=== PATIENT | male | born 1955 | race Hispanic/Latino ===

== ENCOUNTER 2020-10-08 00:50 | Emergency (ER) | payer OTHER ==
[2020-10-08] MEDS ORDERED: HYDROCODONE/APAP 10/325 TAB ONE (02:28)
[2020-10-08] MEDS ORDERED: methocarbamoL 500 MG TAB ONE (02:28)
[2020-10-08] MEDS ORDERED: KETOROLAC 30 MG/ML INJ ONE (02:29)
--- NOTE | 2020-10-08 03:51 | ER ---
Nurse's Notes [facility] Name: Refugio Sylvester Age: 65 yrs Sex: Male : 1955 Arrival Date: 10/08/2020 Time: 00:54 Bed 12 Private MD: Diagnosis: Multiple fractures of ribs, left side-New and old Presentation: 10/08 02:02 Acuity: JOSH 4 sg 02:02 Chief complaint: Patient states: Earlier this evening, I was walking and slipped on the sg ice, falling onto my left side. Im having pain in my left ribs only at this time. pt ambulatory for triage to exam room 12. Coronavirus screen: Client denies travel out of the [place] in the last 14 days. Ebola Screen: Patient negative for fever greater than or equal to 101.5 degrees Fahrenheit, and additional compatible Ebola Virus Disease symptoms Patient denies exposure to infectious person. Patient denies travel to an Ebola-affected area in the 21 days before illness onset. No symptoms or risks identified at this time. Initial Sepsis Screen: Does the patient meet any 2 criteria? No. Patient's initial sepsis screen is negative. Does the patient have a suspected source of infection? No. Patient's initial sepsis screen is negative. Risk Assessment: Do you want to hurt yourself or someone else? Patient reports no desire to harm self or others. Onset of symptoms was October 07, 2020. Care prior to arrival: None. Mechanism of Injury: Fall from standing position. Transition of care: patient was not received from another setting of care. 02:02 Method Of Arrival: Ambulatory sg Historical: - Allergies: 02:04 No Known Allergies; sg - PMHx: 02:04 Broken Ribs; sg - Immunization history:: Adult Immunizations up to date. - Social history:: Smoking status: Patient denies any tobacco usage or history of. Screenin:50 Abuse screen: Denies threats or abuse. Denies injuries from another. Nutritional sg screening: No deficits noted. Tuberculosis screening: No symptoms or risk factors identified. Never had TB. Fall Risk None identified. Assessment: 02:38 Reassessment: pt remains in xray at this time. sg 03:20 Reassessment: Patient appears in no apparent distress at this time. Patient and/or sg family updated on plan of care and expected duration. Pain level reassessed. Patient is alert, oriented x 3, equal unlabored respirations, skin warm/dry/pink. Vital Signs: 02:38 BP 142 / 76; Pulse 80; Resp 16; Temp 97.7; Pulse Ox 95% on R/A; sg ED Course: 00:54 Patient arrived in ED. ag3 01:17 Raman Gonzalez MD is Attending Physician. kdr 02:02 Joni Langley RN is Primary Nurse. sg 02:02 Triage completed. sg 02:04 Arm band placed on. sg 02:16 Patient moved to radiology. sg 03:34 CXR XRAY In Process Unspecified. EDMS 03:34 Ribs Left XRAY In Process Unspecified. EDMS 04:04 No provider procedures requiring assistance completed. Patient did not have IV access sg during this emergency room visit. Administered Medications: 02:10 Drug: [place] 10 mg-325 mg 1 tabs Route: PO; sg 03:30 Follow up: Response: No adverse reaction; Pain is decreased sg 02:10 Drug: Robaxin 750 mg Route: PO; sg 03:30 Follow up: Response: No adverse reaction; Pain is decreased sg 03:08 Drug: TORadol - Ketorolac 15 mg Route: IM; Site: left deltoid; sg 03:30 Follow up: Response: No adverse reaction sg Outcome: 03:50 Discharge ordered by . kdr 04:04 Patient left the ED. sg 04:04 Discharged to home ambulatory. sg 04:04 Condition: good 04:04 Discharge instructions given to patient, Instructed on discharge instructions, follow up and referral plans. safety practices, Demonstrated understanding of instructions, follow-up care, Prescriptions given X 3. Signatures: Dispatcher [employer] EDMS Joni Langley, KANA RN Raman Gonzalez MD MD [facility] Peyton Wise ag3
--- NOTE | 2020-10-08 03:51 | EDPHYS ---
Physician Documentation [facility] Name: Refugio Sylvester Age: 65 yrs Sex: Male : 1955 Arrival Date: 10/08/2020 Time: 00:54 Bed 12 Private MD: ED Physician Raman Gonzalez HPI: 10/08 02:08 This 65 yrs old Male presents to ER via Ambulatory with complaints of Fall kdr Injury, RIB PAIN. 02:08 Details of fall: The patient fell from an upright position, while walking. Onset: The kdr symptoms/episode began/occurred suddenly, this morning, today. Associated injuries: The patient sustained injury to the chest, specifically the left lateral anterior chest, contusion, pain with breathing, pain with movement, tenderness. Severity of symptoms: At their worst the symptoms were moderate, in the emergency department the symptoms are unchanged. The patient has experienced a previous episode, many years ago. The patient has not recently seen a physician. Historical: - Allergies: 02:04 No Known Allergies; sg - PMHx: 02:04 Broken Ribs; sg - Immunization history:: Adult Immunizations up to date. - Social history:: Smoking status: Patient denies any tobacco usage or history of. ROS: 02:08 Constitutional: Negative for fever, chills, and weight loss, Eyes: Negative for injury, kdr pain, redness, and discharge, Neck: Negative for injury, pain, and swelling, Respiratory: Negative for shortness of breath, cough, wheezing, and pleuritic chest pain, Abdomen/GI: Negative for abdominal pain, nausea, vomiting, diarrhea, and constipation, Back: Negative for injury and pain, : Negative for injury, bleeding, discharge, and swelling, MS/Extremity: Negative for injury and deformity, Skin: Negative for injury, rash, and discoloration, Neuro: Negative for headache, weakness, numbness, tingling, and seizure activity. Psych: Negative for depression, anxiety, suicide ideation, homicidal ideation, and hallucinations, Allergy/Immunology: Negative for hives, rash, and allergies, Endocrine: Negative for neck swelling, polydipsia, polyuria, polyphagia, and marked weight changes, Hematologic/Lymphatic: Negative for swollen nodes, abnormal bleeding, and unusual bruising. 02:08 Cardiovascular: Positive for chest pain, with cough, with movement, of the left lateral anterior chest. Exam: 02:08 Constitutional: This is a well developed, well nourished patient who is awake, alert, kdr and in no acute distress. Head/Face: Normocephalic, atraumatic. Eyes: Pupils equal round and reactive to light, extra-ocular motions intact. Lids and lashes normal. Conjunctiva and sclera are non-icteric and not injected. Cornea within normal limits. Periorbital areas with no swelling, redness, or edema. Neck: Trachea midline, no thyromegaly or masses palpated, and no cervical lymphadenopathy. Supple, full range of motion without nuchal rigidity, or vertebral point tenderness. No Meningismus. Cardiovascular: Regular rate and rhythm with a normal S1 and S2. No gallops, murmurs, or rubs. Normal PMI, no JVD. No pulse deficits. Respiratory: Lungs have equal breath sounds bilaterally, clear to auscultation and percussion. No rales, rhonchi or wheezes noted. No increased work of breathing, no retractions or nasal flaring. Abdomen/GI: Soft, non-tender, with normal bowel sounds. No distension or tympany. No guarding or rebound. No evidence of tenderness throughout. Back: No spinal tenderness. No costovertebral tenderness. Full range of motion. Skin: Warm, dry with normal turgor. Normal color with no rashes, no lesions, and no evidence of cellulitis. MS/ Extremity: Pulses equal, no cyanosis. Neurovascular intact. Full, normal range of motion. Neuro: Awake and alert, GCS 15, oriented to person, place, time, and situation. Cranial nerves II-XII grossly intact. Motor strength 5/5 in all extremities. Sensory grossly intact. Cerebellar exam normal. Normal gait. Psych: Awake, alert, with orientation to person, place and time. Behavior, mood, and affect are within normal limits. 02:08 Chest/axilla: Inspection: abrasion, that is mild, of the left lateral anterior chest Palpation: crepitus, is not appreciated, tenderness, that is moderate, of the left lateral anterior chest, that totally reproduces the patient's complaints. Vital Signs: 02:38 BP 142 / 76; Pulse 80; Resp 16; Temp 97.7; Pulse Ox 95% on R/A; sg MDM: 02:08 Data reviewed: vital signs, nurses notes, radiologic studies. Counseling: I had a kdr detailed discussion with the patient and/or guardian regarding: the historical points, exam findings, and any diagnostic results supporting the discharge/admit diagnosis, radiology results, the need for outpatient follow up. 03:50 Patient medically screened. kdr 10/08 01:17 Order name: CXR XRAY kdr 10/08 02:16 Order name: Ribs Left XRAY sg 10/08 03:53 Order name: INCENTIVE SPIROMETRY sg Administered Medications: 02:10 Drug: [place] 10 mg-325 mg 1 tabs Route: PO; sg 03:30 Follow up: Response: No adverse reaction; Pain is decreased sg 02:10 Drug: Robaxin 750 mg Route: PO; sg 03:30 Follow up: Response: No adverse reaction; Pain is decreased sg 03:08 Drug: TORadol - Ketorolac 15 mg Route: IM; Site: left deltoid; sg 03:30 Follow up: Response: No adverse reaction sg Disposition: 10/08/20 03:50 Discharged to Home. Impression: Multiple fractures of ribs, left side - New and old. - Condition is Stable. - Discharge Instructions: Incentive Spirometer, Rib Fracture, [id number]. - Prescriptions for Ibuprofen 600 mg Oral Tablet - take 1 tablet by ORAL route every 6 hours As needed take with food; 30 tablet. Robaxin 500 mg Oral Tablet - take 2 tablet by ORAL route every 6 hours As needed; 40 tablet. Tylenol- Codeine #3 300-30 mg Oral Tablet - take 2 tablets by ORAL route every 6 hours As needed; 18 tablet. - Medication Reconciliation Form, Thank You Letter, Prescription Opioid Use form. - Follow up: Private Physician; When: 2 - 3 days; Reason: If symptoms return, Further diagnostic work-up, Recheck today's complaints, Continuance of care, Re-evaluation by your physician. - Problem is new. - Symptoms have improved. Signatures: Dispatcher [employer] EDJoni Shearer RN RN Raman Lino MD MD kdr Corrections: (The following items were deleted from the chart) 03:14 01:18 Ribs Right+RAD.RAD.BRZ ordered. [facility] EDMS 04:04 03:50 10/08/2020 03:50 Discharged to Home. Impression: Multiple fractures of ribs, left sg side - New and old. Condition is Stable. Forms are Medication Reconciliation Form, Thank You Letter, Antibiotic Education, Prescription Opioid Use. Follow up: Private Physician; When: 2 - 3 days; Reason: If symptoms return, Further diagnostic work-up, Recheck today's complaints, Continuance of care, Re-evaluation by your physician. Problem is new. Symptoms have improved. kdr
[2020-10-08 04:09] VITALS: BP 142/76; TEMP 97.7; O2SAT 95
--- NOTE | 2020-10-08 08:28 | RAD REPORT ---
EXAM DESCRIPTION: RAD - Chest Single View - 10/08/2020 3:34 am CLINICAL HISTORY: CHEST PAIN, fall with left-sided chest and rib pain COMPARISON: No remote imaging TECHNIQUE: AP portable chest image was obtained 10/08/2020 3:34 am . FINDINGS: No pneumothorax or pulmonary contusion identifiable. Heart and vasculature are normal. No pleural fluid collections seen. Sternotomy wires are in place. No acute aortic finding. Multiple old left-sided rib fractures are present. Ribs are further detailed on separate report. IMPRESSION: No acute cardiopulmonary process. Left-sided rib findings are detailed on separate report.
--- NOTE | 2020-10-08 08:33 | RAD REPORT ---
EXAM DESCRIPTION: RAD - Ribs Left - 10/08/2020 3:35 am CLINICAL HISTORY: Fall, left-sided chest pain, left-sided rib pain COMPARISON: No remote imaging FINDINGS: Posterior 5-8th rib fractures appear to be old. The 9th and 10th ribs show questionable no ndisplaced rib fractures lateral to anterolateral in location. Film detail is somewhat limited. There are no findings of a pathologic bone process. Costochondral calcifications are present. No pneumothorax or hemothorax findings. No pulmonary contusion. IMPRESSION: Questionable nondisplaced lateral ninth and tenth rib fractures. Old posterior 5ht-8th left-sided rib fractures.
== END 2020-10-08 04:04 | disposition home or self-care (01) ==
LOC: ER 00:50
DX: S22.42XA Multiple fractures of ribs, left side, initial encounter for closed fracture (principal); W19.XXXA Unspecified fall, initial encounter
CPT/HCPCS: 71045; 96372; 99283

== ENCOUNTER 2021-07-16 19:15 | Inpatient (IN) | payer OTHER ==
--- OUTSIDE RECORDS SUMMARY | 2021-07-16 19:52 | XMS REPORT | Continuity of Care Document ---
:1955 Author Organization [facility] t Address [address] [place] [place] [address] Care Team Providers Name Role Phone Pcp, Does Not Have A Primary Care Physician Wendy Attending Clinician Unavailable Hiro FARLEY, Kulwant Attending Clinician Maico FARLEY, K.H. Attending Clinician Doctor Unassigned, Name Attending Clinician Unavailable Matt FARLEY Attending Clinician Transplant Attending Clinician Unavailable ALF Attending Clinician Unavailable VASCULAR Attending Clinician Unavailable ANDERSON Attending Clinician Unavailable ANDERSON Admitting Clinician Unavailable Payers Payer Name Policy Type Policy Number Effective Date Expiration Date S ource Problems Condition Condition Condition Status Onset Resolution Last Treating Co mments Source Name Details Category Date Date Treatment Clinician Date SOB Diagnosis Active 2020-12-10 Mem oria 12-10 10:37:00 l SOB 04:00: Mcfarlan 00 Active 12/10/2020 [facility] CHEST Diagnosis Active 2020-12-12 Mem oria PAIN, 12-10 12:48:00 l SHORTNESS CHEST 04:00: Bob n OF BREATH PAIN, 00 SHORTNESS OF BREATH [facility] Ob[facility] Obesity Disease Active Univers (BMI (BMI 2-12 ity of 30-39.9) 30-39.9) 00:00: [place] 00 Medical Branch Screening Screening Disease Active Overview: Univers for colon for colon 08-31 Formattin i ty of cancer cancer 00:00: g of this [place] 00 note Medical might be Branch different from the original. Added automatic ally from request for surgery [id number] Caries Caries Disease Active 2017-08 Overview: Univer s 10-19 Formattin ity of 00:00: g of this [place] 00 note Medical might be Branch different from the original. Added automatic ally from request for surgery [id number] ESRD (end ESRD (end Disease Active 2017-08 Uni vers stage stage 10-19 ity of renal renal 00:00: [place] disease) disease) 00 Medica l Branch PERIPHERAL Diagnosis Active 2018-01-10 Memoria STENT 12-16 06:46:00 l 00:00: David PERIPHERAL 00 STENT Active 12/16/2017 [facility] David UNK Diagnosis Active 2017-12-18 Mem oria 3 15:48:00 l UNK 00:00: David 00 Active 11/05/2017 Sahil Hernandez Jayde FARLEY Diagnosis Active 2017-10-19 Mem oria REFERRAL 10-19 21:09:00 l 00:00: David REFERRAL 00 Active 10/19/2017 [facility] DIALYSIS Diagnosis Active 2017-10-20 M emoria AV FISTULA 10-19 14:44:00 l MALFUNCTIO DIALYSIS 00:00: He rmann N AV FISTULA 00 MALFUNCTIO N Active 10/19/2017 [facility] STOMACHE Diagnosis Active 2016-082017-08-11 M emoria ACHE 10-11 01:02:00 l STOMACHE 00:00: Bob n ACHE 00 Active 08/10/2017 [facility] ACUTE CHF Diagnosis Active 2016-082017-06-25 Memoria 08-24 15:19:00 l ACUTE 00:00: Mcfarlan CHF 00 Active 06/24/2017 [facility] David CHRONIC Diagnosis Active 2016-082017-06-10 Me moria KIDNEY 0-16 10:11:00 l DISEASE CHRONIC 00:00: Bob n STAGE V KIDNEY 00 DISEASE STAGE V Active 06/07/2017 [facility] COUGH, EYE Diagnosis Active 2016-12-06 Memoria PAIN 4-16 22:18:00 l COUGH, 00:00: Mcfarlan EYE PAIN 00 Active 12/06/2016 [facility] TROUBLE Diagnosis Active 2016-11-10 Me moria BREATHING 3-20 00:49:00 l TROUBLE 00:00: David BREATHING 00 Active 11/09/2016 [facility] Congestive Congestive Disease Active 2014-08 U nivers heart heart 0-02 ity of failure failure 00:00: [place] (CHF) (CHF) 00 Medical Branch CHF CHF Disease Active 2014-08 Univers (congestiv (congestiv 0-01 it y of e heart e heart 00:00: [place] failure) failure) 00 Medica l Branch DM w/o DM w/o Disease Active Univers complicati complicati it y of on type II on type II [place] [facility] HTN HTN Disease Active Univers (hypertens (hypertens it y of ion) ion) [facility] Dyslipidem Dyslipidem Disease Active U mati ia ia ity of [facility] Retinopath Retinopath Disease Active Overview : Univers y y Formattin ity of g of this [place] note Medical might be Branch different from the original. 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:36:33 l occlusion Chronic Herm shelbie of artery total of the occlusion extremitie of artery s of the extremitie s 02/23/2018 [facility] Atheroscle Problem 2018-02-23 M emoria rosis of 14:36:33 l aorta David Atheroscle rosis of aorta 02/23/2018 [facility] Other Problem 2018-02-23 Memor ia specified 14:36:33 l diabetes Other David mellitus specified with diabetes diabetic mellitus chronic with kidney diabetic disease chronic kidney disease 02/23/2018 [facility] Hypertensi Problem 2018-02-23 M emoria ve heart 14:36:33 l and Mcfarlan chronic Hypertensi kidney ve heart disease and with heart chronic failure kidney and with disease stage 5 with heart chronic failure kidney and with disease, stage 5 or end chronic stage kidney renal disease, disease or end stage renal disease 02/23/2018 [facility] Chronic Problem 2018-02-23 Connor beto diastolic 14:36:33 l (congestiv Chronic Her [place] e) heart diastolic failure (congestiv e) heart failure 02/23/2018 [facility] End stage Problem 2018-02-23 Me moria renal 14:36:33 l disease End Mcfarlan stage renal disease 02/23/2018 [facility] Dependence Problem 2018-02-23 M emoria on renal 14:36:33 l dialysis David Dependence on renal dialysis 02/23/2018 [facility] Mixed Problem 2018-02-23 Memor ia hyperlipid 14:36:33 l emia Mixed Mcfarlan hyperlipid emia 8 [facility] Atheroscle Problem 2018-02-23 M emoria rotic 14:36:33 l heart Mcfarlan disease of Atheroscle [place] rotic coronary heart artery disease of without [place] angina coronary pectoris artery without angina pectoris 02/23/2018 [facility] Presence Problem 2018-02-23 Mem oria of 14:36:33 l aortocoron Presence He rmann liliam bypass of graft aortocoron liliam bypass graft 02/23/2018 [facility] assisted Problem 2018-02-23 Me moria (current) 14:36:33 l use of Long David oral term hypoglycem (current) ic drugs use of oral hypoglycem ic drugs 02/23/2018 [facility] oysterman Problem 2018-02-23 Me moria (current) 14:36:33 l use of Long Mcfarlan aspirin term (current) use of aspirin 02/23/2018 [facility] assisted Problem 2018-02-23 Me moria (current) 14:36:33 l use of Long David antithromb term otics/anti (current) platelets use of antithromb otics/anti platelets 02/23/2018 [facility] Other long Problem 2018-02-23 M emoria term 14:36:33 l (current) Other Bob n drug termite treater helper therapy (current) drug therapy 02/23/2018 [facility] Unspecifie Problem 2018 M emoria d 15:05:35 l diastolic David (congestiv Unspecifie e) heart d failure diastolic (congestiv e) heart failure 2018 [facility] Type 2 Problem 2018 Memor ia diabetes 15:05:35 l mellitus Type 2 Bob n with diabetes diabetic mellitus chronic with kidney diabetic disease chronic kidney disease 2018 [facility] oysterman Problem 2018 Me moria (current) 15:05:35 l use of Long David insulin term (current) use of insulin 2018 [facility] Type 2 Problem 2018 Memor ia diabetes 15:05:35 l mellitus Type 2 Bob n with diabetes diabetic mellitus peripheral with angiopathy diabetic without peripheral gangrene angiopathy without gangrene 2018 [facility] Hyperlipid Problem 2018 M emoria emia, 15:05:35 l unspecifie Bob n d Hyperlipid emia, unspecifie d 2018 [facility] Obesity, Problem 2018 Mem oria unspecifie 15:05:35 l d Obesity, Bob n unspecifie d 2018 [facility] Body mass Problem 2018 Me moria index 15:05:35 l (BMI) Body David 32.0-32.9, mass index adult (BMI) 32.0-32.9, adult 2018 [facility] Chronic Problem Active 2020-12-16 Connor beto kidney 07:38:26 l disease Chronic Bob n (disorder) kidney disease (disorder) Active Problem 12/16/2020 [facility], [facility], [facility] Diabetes Problem Active 2020-12-16 Mem oria mellitus 07:38:26 l (disorder) Diabetes He rmann mellitus (disorder) Active Problem 12/16/2020 [facility], [facility], [facility] Atrial Problem Active 2020-12-16 Memor ia fibrillati 07:38:26 l on Atrial David (disorder) fibrillati on (disorder) Active Problem 12/16/2020 [place] End stage Problem Active 2020-12-16 Me moria renal 07:38:26 l failure on End Bob n dialysis stage (disorder) renal failure on dialysis (disorder) Active Problem 12/16/2020 [facility] Diabetes Problem Active 2020-12-16 Mem oria mellitus 07:38:26 l type 2 Diabetes Bob n (disorder) mellitus type 2 (disorder) Active Problem 12/16/2020 [facility] CHEST Diagnosis Active 2020-12-12 Mem oria PAIN, 12:48:00 l UNSPECIFIE CHEST Nay nn D PAIN, UNSPECIFIE D Active [facility] SHORTNESS Diagnosis Active 2020-12-12 Memoria OF BREATH 12:48:00 l David SHORTNESS OF BREATH Active [facility] HEART Diagnosis Active 2017-06-25 Mem oria FAILURE, 15:19:00 l UNSPECIFIE HEART Nay nn D FAILURE, UNSPECIFIE D Active [facility] History of History of Problem Resolve Univers congestive congestive d it y of heart heart [place] failure failure Physici ans History of History of Problem Resolve Univers diabetes diabetes d ity of mellitus mellitus [place] Physici ans History of History of Problem Resolve Univers Hematoma Hematoma d ity of [place] Physici ans History of History of Problem Resolve Univers high [place] ity of cholestero cholestero [place] l Physici ans History of History of Problem Resolve Univers hypertensi hypertensi d it y of on on [place] Physici ans History of History of Problem Resolve Univers myocardial myocardial d it y of infarction infarction [place] [facility] ans History of History of Problem Resolve Univers Stage 5 Stage 5 d ity of chronic chronic [place] kidney kidney Physici disease disease ans not on not on chronic chronic dialysis dialysis History of Problem Resolve 2016-2020-12-16 2020-12-16 Memoria - coronary d 05-08 07:38:26 07:38:26 l artery History 00:00: Mcfarlan bypass of - 00 grafting coronary (context-d artery ependent bypass category) grafting (context-d ependent category) Resolved 05/08/2016 Problem 12/16/2020 [facility], [facility], [facility] History of Past Illness Condition Condition Condition Status Onset Resolution Last Treating Co mments Source Name Details Category Date Date Treatment Clinician Date Atheroscle Problem 2017-2018-02-23 2018-02-23 Memoria rosis of 11-27 14:36:33 14:36:33 l [place] 03:49: Mcfarlan arteries Atheroscle 61 of rosis of extremitie [place] s with arteries intermitte of nt extremitie claudicati s with on, intermitte bilateral nt legs claudicati on, bilateral legs 11/27/2017 02/23/2018 [facility] Breakdown Problem 2018-0 2018 2018 Memoria (mechanica 3-08 15:05:35 15:05:35 l l) of 04:44: Mcfarlan other Breakdown 37 vascular (mechanica grafts, l) of initial other encounter vascular grafts, initial encounter 10/28/2017 2018 [place] Unspecifie Problem 2016-082017-08-14 2017-08-14 Memoria d 10-12 04:28:01 04:28:01 l abdominal 06:00: Mcfarlan pain Unspecifie 00 d abdominal pain 08/11/2017 08/14/2017 [facility] Cough Problem 2016-2016-12-10 2016-12-10 M emoria 4-17 02:36:07 02:36:07 l Cough 05:00: David 00 12/07/2016 12/10/2016 [facility] Acute Problem 2016-12-10 2016-12-10 M emoria upper 12-07 02:36:07 02:36:07 l respirator Acute 05:00: Nay nn y upper 00 infection, respirator unspecifie y d infection, unspecifie d 12/07/2016 12/10/2016 [facility] Shortness Problem 2016-11-13 2016-11-13 Memoria of breath 11-10 02:59:55 02:59:55 l 05:00: Mcfarlan Shortness 00 of breath 11/10/2016 11/13/2016 [facility] Allergies, Adverse Reactions, Alerts Allergy Allergy Status Severity Reaction(s) Onset Inactive Treating Comm ents Source Name Type Date Date Clinician No Known DA Active U 2019-08 [facility] [place] [facility] 00:00: d 00 [facility] No Known DA Active U 2019-08 [facility] All[facility]ie 10-20 [place] 00:00: d 00 Medical [place] Social History Social Habit Start Date Stop Date Quantity Comments Source Exposure to Not sure [facility] SARS-CoV-2 [facility] (event) Branch Alcohol intake 2021-06-09 2021-06-09 0 /d University of 00:00:00 00:00:00 [facility] Tobacco use and 2018-07-13 2018-07-13 Never used Universit y of exposure 00:00:00 00:00:00 [facility] Social History 2016-12-07 2016-12-07 [facility] bruna 02:53:03 02:53:03 Tobacco Comment 2015-05-23 2015-05-23 Remote history[facility] ersity of 00:00:00 00:00:00 40 years prior; [facility] [place] ical no more than 2 Branch pk years Sex Ass[birth year] Universit y of 00:00:00 00:00:00 [facility] Smoking Status Start Date Stop Date Source Never smoker [facility] Medications Ordered Filled Start Stop Current Ordering Indication Dosage Frequency Signature Comments Components Source Medication Medication Date Date Medication? Clinician (SIG) Name Name furosemide 2020-08 No 40mg Take 40 mg Univers 40 mg 0-18 10-18 by mouth. ity of tablet 13:57: 00:00 [place] 15 :00 Medical Branch furosemide 2020-08- No 40mg Take 40 mg Univers 40 mg 0-18 10-18 by mouth. ity of tablet 13:57: 00:00 [place] 15 :00 [facility] pravastatin 2020-08 Yes 40mg Take 40 mg Univers 40 mg 0-18 by mouth ity of tablet 13:44: at [place] [address] bedtime. [facility] Branch clopidogreL 2020-08 Yes 75mg Take 75 mg Univers (PLAVIX) 75 0-18 by mouth ity of mg tablet 13:44: daily. [address] pravastatin 2020-08 Yes 40mg Take 40 mg Univers 40 mg 0-18 by mouth ity of tablet 13:44: at [place] [address] bedtime. [facility] Branch clopidogreL 2020-08 Yes 75mg Take 75 mg Univers (PLAVIX) 75 0-18 by mouth ity of mg tablet 13:44: daily. [address] pravastatin 2020-08 Yes 40mg Take 40 mg Univers 40 mg 0-18 by mouth ity of tablet 13:44: at [place] [address] bedtime. [facility] Branch clopidogreL 2020-08 Yes 75mg Take 75 mg Univers (PLAVIX) 75 0-18 by mouth ity of mg tablet 13:44: daily. [address] Branch gabapentin 2020-0 Yes 300mg Take 300 Un sia 300 mg 9-20 mg by ity of capsule 15:57: mouth [address] [place] [address] ([facility]) Medical times Branch daily. glipiZIDE 2021-0 Yes 10mg Take 10 mg Un sia 10 mg 9-20 by mouth ity of tablet 15:57: daily. [address] gabapentin 2020-0 Yes 300mg Take 300 Un sia 300 mg 9-20 mg by ity of capsule 15:57: mouth 3 [place] [address] (three) Medical times Branch daily. glipiZIDE 2020-0 Yes 10mg Take 10 mg Un sia 10 mg 9-20 by mouth ity of tablet 15:57: daily. [address] gabapentin 2020-0 Yes 300mg Take 300 Un sia 300 mg 9-20 mg by ity of capsule 15:57: mouth 3 [place] [address] (three) Medical times [place] daily. glipiZIDE 2021-0 Yes 10mg Take 10 mg Un sia 10 mg 9-20 by mouth ity of tablet 15:57: daily. [address] Branch sevelamer 2020-0 Yes TAKE 3 Univer s 800 mg 7-16 TABLETS BY ity of tablet 00:00: MOUTH [address] Medical TIMES Branch DAILY WITH MEALS sevelamer 2020-0 Yes TAKE 3 Univer s 800 mg 7-16 TABLETS BY ity of tablet 00:00: MOUTH [place] [facility] Medical TIMES Branch DAILY WITH MEALS sevelamer 2020-0 Yes TAKE 3 Univer s 800 mg 7-16 TABLETS BY ity of tablet 00:00: MOUTH [address] Medical TIMES Branch DAILY WITH MEALS ELIQUIS 5 2020-0 Yes 5mg Take 5 mg Uni vers mg tablet 6-01 by mouth ity of 00:00: every 12 [place] [address] (twelve) Medical hours. Branch ELIQUIS 5 2020-0 Yes 5mg Take 5 mg Uni vers mg tablet 6-01 by mouth ity of 00:00: every 12 [place] [address] (twelve) Medical hours. Branch ELIQUIS 5 2020-0 Yes 5mg Take 5 mg Uni vers mg tablet 6-01 by mouth ity of 00:00: every 12 [place] [address] (twelve) Medical hours. Branch apixaban 5 2020-0 Yes 5 mg = 1 Mem oria mg oral 4-21 tab, PO, l tablet 18:03: Q12H, # 60 Nay nn 00 tab, 0 Refill(s), Pharmacy: [facility] #[id number], For Atrial Fibrilatio n, 107.005, kg, 12/10/20 6:02:00 CDT, Weight apixaban 5 1-0 Yes 5 mg = 1 Mem oria mg oral 4-21 tab, PO, l tablet 18:03: Q12H, # 60 Nay nn 00 tab, 0 Refill(s), Pharmacy: [facility] #[id number], For Atrial Fibrilatio n, 107.005, kg, 12/10/20 6:02:00 CDT, Weight apixaban 5 1-0 Yes 5 mg = 1 Mem oria mg oral 4-21 tab, PO, l tablet 18:03: Q12H, # 60 Nay nn 00 tab, 0 Refill(s), Pharmacy: [facility] #[id number], For Atrial Fibrilatio n, 107.005, kg, 12/10/20 6:02:00 CDT, Weight apixaban 5 1-0 Yes 5 mg = 1 Mem oria mg oral 4-21 tab, PO, l tablet 18:03: Q12H, # 60 Nay nn 00 tab, 0 Refill(s), Pharmacy: [facility] #[id number], For Atrial Fibrilatio n, 107.005, kg, 12/10/20 6:02:00 CDT, Weight apixaban 5 1-0 Yes 5 mg = 1 Mem oria mg oral 4-21 tab, PO, l tablet 18:03: Q12H, # 60 Nay nn 00 tab, 0 Refill(s), Pharmacy: [facility] #[id number], For Atrial Fibrilatio n, 107.005, kg, 12/10/20 6:02:00 CDT, Weight apixaban 5 1-0 Yes 5 mg = 1 Mem oria mg oral 4-21 tab, PO, l tablet 18:03: Q12H, # 60 Nay nn 00 tab, 0 Refill(s), Pharmacy: [facility] #[id number], For Atrial Fibrilatio n, 107.005, kg, 12/10/20 6:02:00 CDT, Weight apixaban 5 2020-0 Yes 5 mg = 1 Mem oria mg oral 4-21 tab, PO, l tablet 18:03: Q12H, # 60 Nay nn 00 tab, 0 Refill(s), Pharmacy: [facility] #[id number], For Atrial Fibrilatio n, 107.005, kg, 12/10/20 6:02:00 CDT, Weight apixaban 5 2020-0 Yes 5 mg = 1 Mem oria mg oral 4-21 tab, PO, l tablet 18:03: Q12H, # 60 Nay nn 00 tab, 0 Refill(s), Pharmacy: [facility] #[id number], For Atrial Fibrilatio n, 107.005, kg, 12/10/20 6:02:00 CDT, Weight apixaban 5 2020-0 Yes 5 mg = 1 Mem oria mg oral 4-21 tab, PO, l tablet 18:03: Q12H, # 60 Nay nn 00 tab, 0 Refill(s), Pharmacy: [facility] #[id number], For Atrial Fibrilatio n, 107.005, kg, 12/10/20 6:02:00 CDT, Weight Losartan No Notes: Memoria 4-21 (Same as: l 14:00: Cozaar) Amlodipine No Notes: Memor ia 4-21 (Same as: l 14:00: Norvasc) Losartan No Notes: Memoria 4-21 (Same as: l 14:00: Cozaar) Amlodipine No Notes: Memor ia 4-21 (Same as: l 14:00: Norvasc) Losartan No Notes: Memoria 4-21 (Same as: l 14:00: Cozaar) Amlodipine No Notes: Memor ia 4-21 (Same as: l 14:00: Norvasc) Losartan No Notes: Memoria 4-21 (Same as: l 14:00: Cozaar) Amlodipine No Notes: Memor ia 4-21 (Same as: l 14:00: Norvasc) Losartan No Notes: Memoria 4-21 (Same as: l 14:00: Cozaar) Amlodipine No Notes: Memor ia 4-21 (Same as: l 14:00: Norvasc) Losartan No Notes: Memoria 4-21 (Same as: l 14:00: Cozaar) Amlodipine No Notes: Memor ia 4-21 (Same as: l 14:00: Norvasc) Losartan No Notes: Memoria 4-21 (Same as: l 14:00: Cozaar) Amlodipine No Notes: Memor ia 4-21 (Same as: l 14:00: Norvasc) Losartan No Notes: Memoria 4-21 (Same as: l 14:00: Cozaar) Amlodipine No Notes: Memor ia 4-21 (Same as: l 14:00: Norvasc) Losartan No Notes: Memoria 4-21 (Same as: l 14:00: Cozaar) Amlodipine No Notes: Memor ia 4-21 (Same as: l 14:00: Norvasc) Eliquis No Notes: Memoria 4-21 Same as: l 02:00: Eliquis Pravastatin No Notes: Connor beto 4-21 (Same as: l 02:00: Pravachol) Saline No Notes: Memoria Flush 0.9% 4-21 (Same as: l 02:00: BD Posiflush) Eliquis No Notes: Memoria 4-21 Same as: l 02:00: Eliquis Pravastatin No Notes: Connor beto 4-21 (Same as: l 02:00: Pravachol) Saline No Notes: Memoria Flush 0.9% 4-21 (Same as: l 02:00: BD David 00 Posiflush) Eliquis No Notes: Memoria 4-21 Same as: l 02:00: Eliquis David 00 Pravastatin No Notes: Connor beto 4-21 (Same as: l 02:00: Pravachol) Mcfarlan 00 Saline No Notes: Memoria Flush 0.9% 4-21 (Same as: l 02:00: BD Mcfarlan 00 Posiflush) Eliquis No Notes: Memoria 4-21 Same as: l 02:00: Eliquis Mcfarlan Pravastatin No Notes: Connor beto 4-21 (Same as: l 02:00: Pravachol) David 00 Saline No Notes: Memoria Flush 0.9% 4-21 (Same as: l 02:00: BD Mcfarlan 00 Posiflush) Eliquis No Notes: Memoria 4-21 Same as: l 02:00: Eliquis Mcfarlan Pravastatin No Notes: Connor beto 4-21 (Same as: l 02:00: Pravachol) David 00 Saline No Notes: Memoria Flush 0.9% 4-21 (Same as: l 02:00: BD David 00 Posiflush) Eliquis No Notes: Memoria 4-21 Same as: l 02:00: Eliquis Mcfarlan Pravastatin No Notes: Connor beto 4-21 (Same as: l 02:00: Pravachol) David 00 Saline No Notes: Memoria Flush 0.9% 4-21 (Same as: l 02:00: BD Mcfarlan 00 Posiflush) Eliquis No Notes: Memoria 4-21 Same as: l 02:00: Eliquis Mcfarlan 00 Pravastatin No Notes: Connor beto 4-21 (Same as: l 02:00: Pravachol) David 00 Saline No Notes: Memoria Flush 0.9% 4-21 (Same as: l 02:00: BD David 00 Posiflush) Eliquis No Notes: Memoria 4-21 Same as: l 02:00: Eliquis David 00 Pravastatin No Notes: Connor beto 4-21 (Same as: l 02:00: Pravachol) Mcfarlan 00 Saline No Notes: Memoria Flush 0.9% 4-21 (Same as: l 02:00: BD Mcfarlan 00 Posiflush) Eliquis No Notes: Memoria 4-21 Same as: l 02:00: Eliquis David 00 Pravastatin No Notes: Connor beto 4-21 (Same as: l 02:00: Pravachol) Mcfarlan 00 Saline No Notes: Memoria Flush 0.9% 4-21 (Same as: l 02:00: BD David 00 Posiflush) Sodium No 2,000 mL, Memori a Chloride 4-20 2000 l 0.9% 23:44: ml/hr, David (Bolus) IV 00 Infuse Over: 1 hr, Route: IV, 2,000, Drug form: INJ, ONCE, Priority: STAT, Dosing Weight 107.005 kg, Start date: 12/10/20 18:44:00 CDT, Stop date: 12/10/20 18:44:00 CDT, 0 Sodium 2020-0 No 2,000 mL, Memori a Chloride 4-20 2000 l 0.9% 23:44: ml/hr, Mcfarlan (Bolus) IV 00 Infuse Over: 1 hr, Route: IV, 2,000, Drug form: INJ, ONCE, Priority: STAT, Dosing Weight 107.005 kg, Start date: 12/10/20 18:44:00 CDT, Stop date: 12/10/20 18:44:00 CDT, 0 Sodium 2020-0 No 2,000 mL, Memori a Chloride 4-20 2000 l 0.9% 23:44: ml/hr, Mcfarlan (Bolus) IV 00 Infuse Over: 1 hr, Route: IV, 2,000, Drug form: INJ, ONCE, Priority: STAT, Dosing Weight 107.005 kg, Start date: 12/10/20 18:44:00 CDT, Stop date: 12/10/20 18:44:00 CDT, 0 Sodium 2021-0 No 2,000 mL, Memori a Chloride 4-20 2000 l 0.9% 23:44: ml/hr, Mcfarlan (Bolus) IV 00 Infuse Over: 1 hr, Route: IV, 2,000, Drug form: INJ, ONCE, Priority: STAT, Dosing Weight 107.005 kg, Start date: 12/10/20 18:44:00 CDT, Stop date: 12/10/20 18:44:00 CDT, 0 Sodium 2021-0 No 2,000 mL, Memori a Chloride 4-20 2000 l 0.9% 23:44: ml/hr, Mcfarlan (Bolus) IV 00 Infuse Over: 1 hr, Route: IV, 2,000, Drug form: INJ, ONCE, Priority: STAT, Dosing Weight 107.005 kg, Start date: 12/10/20 18:44:00 CDT, Stop date: 12/10/20 18:44:00 CDT, 0 Sodium 2021-0 No 2,000 mL, Memori a Chloride 4-20 2000 l 0.9% 23:44: ml/hr, David (Bolus) IV 00 Infuse Over: 1 hr, Route: IV, 2,000, Drug form: INJ, ONCE, Priority: STAT, Dosing Weight 107.005 kg, Start date: 12/10/20 18:44:00 CDT, Stop date: 12/10/20 18:44:00 CDT, 0 Sodium 2021-0 No 2,000 mL, Memori a Chloride 4-20 2000 l 0.9% 23:44: ml/hr, David (Bolus) IV 00 Infuse Over: 1 hr, Route: IV, 2,000, Drug form: INJ, ONCE, Priority: STAT, Dosing Weight 107.005 kg, Start date: 12/10/20 18:44:00 CDT, Stop date: 12/10/20 18:44:00 CDT, 0 Sodium 2021-0 No 2,000 mL, Memori a Chloride 4-20 2000 l 0.9% 23:44: ml/hr, Mcfarlan (Bolus) IV 00 Infuse Over: 1 hr, Route: IV, 2,000, Drug form: INJ, ONCE, Priority: STAT, Dosing Weight 107.005 kg, Start date: 12/10/20 18:44:00 CDT, Stop date: 12/10/20 18:44:00 CDT, 0 Sodium No 2,000 mL, Memori a Chloride 12-10 2000 l 0.9% 23:44: ml/hr, David (Bolus) IV 00 Infuse Over: 1 hr, Route: IV, 2,000, Drug form: INJ, ONCE, Priority: STAT, Dosing Weight 107.005 kg, Start date: 12/10/20 18:44:00 CDT, Stop date: 12/10/20 18:44:00 CDT, 0 Nitroglycer No Notes: Connor beto in 12-10 (Same l 20:34: as:Nitroqu [place] 00 ick, Nitrostat) "Do Not Crush" Sublingual tablet Saline No Notes: Memoria Flush 0.9% 4-20 preservati l 20:34: ve free. Nitroglycer No Notes: Connor beto in 20 (Same l 20:34: as:Nitroqu David 00 ick, Nitrostat) "Do Not Crush" Sublingual tablet Saline No Notes: Memoria Flush 0.9% 4-20 preservati l 20:34: ve free. Nitroglycer No Notes: Connor beto in -20 (Same l 20:34: as:Nitroqu David 00 ick, Nitrostat) "Do Not Crush" Sublingual tablet Saline No Notes: Memoria Flush 0.9% 4-20 preservati l 20:34: ve free. Nitroglycer No Notes: Connor beto in 20 (Same l 20:34: as:Nitroqu [place] 00 ick, Nitrostat) "Do Not Crush" Sublingual tablet Saline No Notes: Memoria Flush 0.9% 4-20 preservati l 20:34: ve free. Nitroglycer No Notes: Connor beto in 20 (Same l 20:34: as:Nitroqu David 00 ick, Nitrostat) "Do Not Crush" Sublingual tablet Saline No Notes: Memoria Flush 0.9% 4-20 preservati l 20:34: ve free. Nitroglycer No Notes: Connor beto in -20 (Same l 20:34: as:Nitroqu [place] 00 ick, Nitrostat) "Do Not Crush" Sublingual tablet Saline No Notes: Memoria Flush 0.9% 4-20 preservati l 20:34: ve free. Nitroglycer No Notes: Connor beto in 4-20 (Same l 20:34: as:Nitroqu [place] 00 ick, Nitrostat) "Do Not Crush" Sublingual tablet Saline No Notes: Memoria Flush 0.9% 4-20 preservati l 20:34: ve free. Nitroglycer No Notes: Connor beto in -20 (Same l 20:34: as:Nitroqu David 00 ick, Nitrostat) "Do Not Crush" Sublingual tablet Saline No Notes: Memoria Flush 0.9% 4-20 preservati l 20:34: ve free. Nitroglycer No Notes: Connor beto in 4-20 (Same l 20:34: as:Nitroqu [place] 00 ick, Nitrostat) "Do Not Crush" Sublingual tablet Saline No Notes: Memoria Flush 0.9% 4-20 preservati l 20:34: ve free. Dextrose No 12.5 gm, Memor ia 50% Syringe -20 25 mL, l (D50W) 19:58: Route: IVP, Drug Form: INJ, Dosing Weight 107.005, kg, PRN, PRN Blood Glucose Results, Start date: 12/10/20 14:58:00 CDT, Duration: 30 day, Stop date: 01/09/21 14:57:00 CDT, 0 Glucagon No 1 mg, Memoria 12-10 Route: IM, l 19:58: Drug form: PDR/INJ, PRN, Dosing Weight 107.005, kg, PRN Blood Glucose Results, Start date: 12/10/20 14:58:00 CDT, Duration: 30 day, Stop date: 01/09/21 14:57:00 CDT, 0 Dextrose 2021-0 No 12.5 gm, Memor ia 50% Syringe 4-20 25 mL, l (D50W) 19:58: Route: David 00 IVP, Drug Form: INJ, Dosing Weight 107.005, kg, PRN, PRN Blood Glucose Results, Start date: 12/10/20 14:58:00 CDT, Duration: 30 day, Stop date: 01/09/21 14:57:00 CDT, 0 Glucagon 2021-0 No 1 mg, Memoria 4-20 Route: IM, l 19:58: Drug form: [place] 00 PDR/INJ, PRN, Dosing Weight 107.005, kg, PRN Blood Glucose Results, Start date: 12/10/20 14:58:00 CDT, Duration: 30 day, Stop date: 01/09/21 14:57:00 CDT, 0 Dextrose 2021-0 No 12.5 gm, Memor ia 50% Syringe 4-20 25 mL, l (D50W) 19:58: Route: David 00 IVP, Drug Form: INJ, Dosing Weight 107.005, kg, PRN, PRN Blood Glucose Results, Start date: 12/10/20 14:58:00 CDT, Duration: 30 day, Stop date: 01/09/21 14:57:00 CDT, 0 Glucagon 2021-0 No 1 mg, Memoria 4-20 Route: IM, l 19:58: Drug form: David 00 PDR/INJ, PRN, Dosing Weight 107.005, kg, PRN Blood Glucose Results, Start date: 12/10/20 14:58:00 CDT, Duration: 30 day, Stop date: 01/09/21 14:57:00 CDT, 0 Dextrose 2021-0 No 12.5 gm, Memor ia 50% Syringe 4-20 25 mL, l (D50W) 19:58: Route: David 00 IVP, Drug Form: INJ, Dosing Weight 107.005, kg, PRN, PRN Blood Glucose Results, Start date: 12/10/20 14:58:00 CDT, Duration: 30 day, Stop date: 01/09/21 14:57:00 CDT, 0 Glucagon 2021-0 No 1 mg, Memoria 4-20 Route: IM, l 19:58: Drug form: David 00 PDR/INJ, PRN, Dosing Weight 107.005, kg, PRN Blood Glucose Results, Start date: 12/10/20 14:58:00 CDT, Duration: 30 day, Stop date: 01/09/21 14:57:00 CDT, 0 Dextrose 2021-0 No 12.5 gm, Memor ia 50% Syringe 4-20 25 mL, l (D50W) 19:58: Route: [place] 00 IVP, Drug Form: INJ, Dosing Weight 107.005, kg, PRN, PRN Blood Glucose Results, Start date: 12/10/20 14:58:00 CDT, Duration: 30 day, Stop date: 01/09/21 14:57:00 CDT, 0 Glucagon 2021-0 No 1 mg, Memoria 4-20 Route: IM, l 19:58: Drug form: David 00 PDR/INJ, PRN, Dosing Weight 107.005, kg, PRN Blood Glucose Results, Start date: 12/10/20 14:58:00 CDT, Duration: 30 day, Stop date: 01/09/21 14:57:00 CDT, 0 Dextrose 2021-0 No 12.5 gm, Memor ia 50% Syringe 4-20 25 mL, l (D50W) 19:58: Route: David 00 IVP, Drug Form: INJ, Dosing Weight 107.005, kg, PRN, PRN Blood Glucose Results, Start date: 12/10/20 14:58:00 CDT, Duration: 30 day, Stop date: 01/09/21 14:57:00 CDT, 0 Glucagon 2021-0 No 1 mg, Memoria 4-20 Route: IM, l 19:58: Drug form: [place] 00 PDR/INJ, PRN, Dosing Weight 107.005, kg, PRN Blood Glucose Results, Start date: 12/10/20 14:58:00 CDT, Duration: 30 day, Stop date: 01/09/21 14:57:00 CDT, 0 Dextrose 2021-0 No 12.5 gm, Memor ia 50% Syringe 4-20 25 mL, l (D50W) 19:58: Route: [place] 00 IVP, Drug Form: INJ, Dosing Weight 107.005, kg, PRN, PRN Blood Glucose Results, Start date: 12/10/20 14:58:00 CDT, Duration: 30 day, Stop date: 01/09/21 14:57:00 CDT, 0 Glucagon 2021-0 No 1 mg, Memoria 4-20 Route: IM, l 19:58: Drug form: [place] 00 PDR/INJ, PRN, Dosing Weight 107.005, kg, PRN Blood Glucose Results, Start date: 12/10/20 14:58:00 CDT, Duration: 30 day, Stop date: 01/09/21 14:57:00 CDT, 0 Dextrose 2021-0 No 12.5 gm, Memor ia 50% Syringe 4-20 25 mL, l (D50W) 19:58: Route: [place] 00 IVP, Drug Form: INJ, Dosing Weight 107.005, kg, PRN, PRN Blood Glucose Results, Start date: 12/10/20 14:58:00 CDT, Duration: 30 day, Stop date: 01/09/21 14:57:00 CDT, 0 Glucagon 2021-0 No 1 mg, Memoria 4-20 Route: IM, l 19:58: Drug form: [place] 00 PDR/INJ, PRN, Dosing Weight 107.005, kg, PRN Blood Glucose Results, Start date: 12/10/20 14:58:00 CDT, Duration: 30 day, Stop date: 01/09/21 14:57:00 CDT, 0 Dextrose 2021-0 No 12.5 gm, Memor ia 50% Syringe 4-20 25 mL, l (D50W) 19:58: Route: David 00 IVP, Drug Form: INJ, Dosing Weight 107.005, kg, PRN, PRN Blood Glucose Results, Start date: 12/10/20 14:58:00 CDT, Duration: 30 day, Stop date: 01/09/21 14:57:00 CDT, 0 Glucagon 2021-0 No 1 mg, Memoria 4-20 Route: IM, l 19:58: Drug form: [place] 00 PDR/INJ, PRN, Dosing Weight 107.005, kg, PRN Blood Glucose Results, Start date: 12/10/20 14:58:00 CDT, Duration: 30 day, Stop date: 01/09/21 14:57:00 CDT, 0 Plavix No Notes: Memoria 4-20 (Same As: l 17:47: Plavix) Plavix No Notes: Memoria 4-20 (Same As: l 17:47: Plavix) Plavix No Notes: Memoria 4-20 (Same As: l 17:47: Plavix) Plavix No Notes: Memoria 4-20 (Same As: l 17:47: Plavix) Plavix No Notes: Memoria 4-20 (Same As: l 17:47: Plavix) Plavix No Notes: Memoria 4-20 (Same As: l 17:47: Plavix) Plavix No Notes: Memoria 4-20 (Same As: l 17:47: Plavix) Plavix No Notes: Memoria 4-20 (Same As: l 17:47: Plavix) Plavix No Notes: Memoria 4-20 (Same As: l 17:47: Plavix) Aspirin No Notes: Memoria 4-20 Take with l 17:24: food. Aspirin No Notes: Memoria 4-20 Take with l 17:24: food. Aspirin No Notes: Memoria 4-20 Take with l 17:24: food. Aspirin No Notes: Memoria 4-20 Take with l 17:24: food. Aspirin No Notes: Memoria 4-20 Take with l 17:24: food. Aspirin No Notes: Memoria 4-20 Take with l 17:24: food. Aspirin No Notes: Memoria 4-20 Take with l 17:24: food. Aspirin No Notes: Memoria 4-20 Take with l 17:24: food. Aspirin No Notes: Memoria 4-20 Take with l 17:24: food. David Zofran No Notes: Memoria 4-20 (Same as: l 13:54: Zofran) David 00 MEDICATION WASTE Product Size: 4 mg Product Wasted: ___ mg Zofran No Notes: Memoria 4-20 (Same as: l 13:54: Zofran) David 00 MEDICATION WASTE Product Size: 4 mg Product Wasted: ___ mg Zofran No Notes: Memoria 4-20 (Same as: l 13:54: Zofran) David 00 MEDICATION WASTE Product Size: 4 mg Product Wasted: ___ mg Zofran No Notes: Memoria 4-20 (Same as: l 13:54: Zofran) David 00 MEDICATION WASTE Product Size: 4 mg Product Wasted: ___ mg Zofran No Notes: Memoria 4-20 (Same as: l 13:54: Zofran) David 00 MEDICATION WASTE Product Size: 4 mg Product Wasted: ___ mg Zofran 2020-0 No Notes: Memoria 4-20 (Same as: l 13:54: Zofran) David 00 MEDICATION WASTE Product Size: 4 mg Product Wasted: ___ mg Zofran 2020-0 No Notes: Memoria 4-20 (Same as: l 13:54: Zofran) David 00 MEDICATION WASTE Product Size: 4 mg Product Wasted: ___ mg Zofran 2020-0 No Notes: Memoria 4-20 (Same as: l 13:54: Zofran) David 00 MEDICATION WASTE Product Size: 4 mg Product Wasted: ___ mg Zofran 2020-0 No Notes: Memoria 4-20 (Same as: l 13:54: Zofran) David 00 MEDICATION WASTE Product Size: 4 mg Product Wasted: ___ mg Morphine 2021-0 No Notes: Memoria 4-20 (Same l 13:53: as:MORPhin David 00 e Sulfate) Morphine No Notes: Memoria 4-20 (Same l 13:53: as:MORPhin David 00 e Sulfate) Morphine No Notes: Memoria 4-20 (Same l 13:53: as:MORPhin David 00 e Sulfate) Morphine No Notes: Memoria 4-20 (Same l 13:53: as:MORPhin David 00 e Sulfate) Morphine No Notes: Memoria 4-20 (Same l 13:53: as:MORPhin [place] 00 e Sulfate) Morphine No Notes: Memoria 4-20 (Same l 13:53: as:MORPhin David 00 e Sulfate) Morphine No Notes: [facility]oria 4-20 (Same l 13:53: as:MORPhin David 00 e Sulfate) Morphine No Notes: Memoria 4-20 (Same l 13:53: as:MORPhin David 00 e Sulfate) Morphine No Notes: Memoria 4-20 (Same l 13:53: as:MORPhin [place] 00 e Sulfate) peg-electro 2017-08 Yes Take as Uni vers lyte soln 2-27 directed ity of 236-22.74-6 00:[place] -5.[place] 00 colonoscop [facility]i [facility] gram [facility] solution peg-electro 2017-08 Yes Take as Uni vers lyte soln 2-27 directed ity of 236-22.74-6 00:00: [place] .[place] -5.86 00 colonoscop Medi ashley gram y Branch solution peg-electro 2017-08 Yes Take as Uni vers lyte soln 2-27 directed ity of 236-22.74-6 00:00: [place] .[place] -5.86 [place] colonoscop Medi ash[facility] gram [facility] solution hydralAZINE 2017-08- No TK 1 T PO [facility] 50 mg 2-19 10-18 TID WF ity of tablet 00:00: 00:00 [place] 00 :00 [facility] hydralAZINE 2017-08- No TK 1 T PO [facility] 50 mg 2-19 10-18 TID WF ity of tablet 00:00: 00:00 [place] 00 :00 [facility] losartan 50 2017- Yes 50mg 50 mg 2 Uni vers mg tablet 2-03 (two) ity of 00:00: times 00 daily. [facility] losartan 50 2017-08 Yes 50mg 50 mg 2 Uni vers mg tablet 2-03 (two) ity of 00:00: times 00 daily. [facility] losartan 50 2017-08 Yes 50mg 50 mg 2 Uni vers mg tablet 2-03 (two) ity of 00:00: times 00 daily. [facility] VITAMIN D2 2017- Yes [facility] 50,000 unit 1-08 ity of capsule 00:00: 00 [facility] VITAMIN D2 2017- Yes [facility] 50,000 unit 1-08 ity of capsule 00:00: 00 [facility] VITAMIN D2 2017- Yes [facility] 50,000 unit 1-08 ity of capsule 00:00: 00 [facility] Losartan No Notes: Memoria 5-22 (Same as: l 14:00: Cozaar) glimepiride No 2 mg, Memor ia 5-22 Route: PO, l 14:00: Drug form: David 00 TAB, Daily, Dosing Weight 97.727, kg, Start date: 01/11/18 9:00:00 CDT, Duration: 30 day, Stop date: 02/09/18 9:00:00 CDT clopidogrel 0 No Notes: Connor beto 5-22 (Same As: l 14:00: Plavix) Aspirin No Notes: Memoria 5-22 Take with l 14:00: food. Amlodipine No Notes: Memor ia 5-22 (Same as: l 14:00: Norvasc) Losartan No Notes: Memoria 5-22 (Same as: l 14:00: Cozaar) glimepiride No 2 mg, Memor ia 5-22 Route: PO, l 14:00: Drug form: David 00 TAB, Daily, Dosing Weight 97.727, kg, Start date: 01/11/18 9:00:00 CDT, Duration: 30 day, Stop date: 02/09/18 9:00:00 CDT clopidogrel 2018-0 No Notes: Connor beto 5-22 (Same As: l 14:00: Plavix) Aspirin No Notes: Memoria 5-22 Take with l 14:00: food. Amlodipine No Notes: Memor ia 5-22 (Same as: l 14:00: Norvasc) Losartan No Notes: Memoria 5-22 (Same as: l 14:00: Cozaar) glimepiride 0 No 2 mg, Memor ia 5-22 Route: PO, l 14:00: Drug form: David 00 TAB, Daily, Dosing Weight 97.727, kg, Start date: 01/11/18 9:00:00 CDT, Duration: 30 day, Stop date: 02/09/18 9:00:00 CDT clopidogrel 0 No Notes: Connor beto 5-22 (Same As: l 14:00: Plavix) Aspirin No Notes: Memoria 5-22 Take with l 14:00: food. Amlodipine No Notes: Memor ia 5-22 (Same as: l 14:00: Norvasc) Losartan No Notes: Memoria 5-22 (Same as: l 14:00: Cozaar) glimepiride 0 No 2 mg, Memor ia 5-22 Route: PO, l 14:00: Drug form: [place] 00 TAB, Daily, Dosing Weight 97.727, kg, Start date: 01/11/18 9:00:00 CDT, Duration: 30 day, Stop date: 02/09/18 9:00:00 CDT clopidogrel 0 No Notes: Connor beto 5-22 (Same As: l 14:00: Plavix) Aspirin No Notes: Memoria 5-22 Take with l 14:00: food. Amlodipine No Notes: Memor ia 5-22 (Same as: l 14:00: Norvasc) Losartan No Notes: Memoria 5-22 (Same as: l 14:00: Cozaar) glimepiride 0 No 2 mg, Memor ia 5-22 Route: PO, l 14:00: Drug form: David 00 TAB, Daily, Dosing Weight 97.727, kg, Start date: 01/11/18 9:00:00 CDT, Duration: 30 day, Stop date: 02/09/18 9:00:00 CDT clopidogrel 0 No Notes: Connor beto 5-22 (Same As: l 14:00: Plavix) Aspirin No Notes: Memoria 5-22 Take with l 14:00: food. Amlodipine No Notes: Memor ia 5-22 (Same as: l 14:00: Norvasc) Losartan No Notes: Memoria 5-22 (Same as: l 14:00: Cozaar) glimepiride No 2 mg, Memor ia 5-22 Route: PO, l 14:00: Drug form: David 00 TAB, Daily, Dosing Weight 97.727, kg, Start date: 01/11/18 9:00:00 CDT, Duration: 30 day, Stop date: 02/09/18 9:00:00 CDT clopidogrel No Notes: Connor beto 5-22 (Same As: l 14:00: Plavix) Aspirin No Notes: Memoria 5-22 Take with l 14:00: food. Amlodipine No Notes: Memor ia 5-22 (Same as: l 14:00: Norvasc) Losartan No Notes: Memoria 5-22 (Same as: l 14:00: Cozaar) glimepiride 0 No 2 mg, Memor ia 5-22 Route: PO, l 14:00: Drug form: [place] 00 TAB, Daily, Dosing Weight 97.727, kg, Start date: 01/11/18 9:00:00 CDT, Duration: 30 day, Stop date: 02/09/18 9:00:00 CDT clopidogrel 0 No Notes: Connor beto 5-22 (Same As: l 14:00: Plavix) Aspirin No Notes: Memoria 5-22 Take with l 14:00: food. Amlodipine No Notes: Memor ia 5-22 (Same as: l 14:00: Norvasc) Losartan No Notes: Memoria 5-22 (Same as: l 14:00: Cozaar) glimepiride No 2 mg, Memor ia 5-22 Route: PO, l 14:00: Drug form: David TAB, Daily, Dosing Weight 97.727, kg, Start date: 01/11/18 9:00:00 CDT, Duration: 30 day, Stop date: 02/09/18 9:00:00 CDT Losartan No Notes: Memoria 5-22 (Same as: l 14:00: Cozaar) glimepiride No 2 mg, Memor ia 5-22 Route: PO, l 14:00: Drug form: [place] 00 TAB, Daily, Dosing Weight 97.727, kg, Start date: 01/11/18 9:00:00 CDT, Duration: 30 day, Stop date: 02/09/18 9:00:00 CDT clopidogrel No Notes: Connor beto 5-22 (Same As: l 14:00: Plavix) Aspirin No Notes: Memoria 5-22 Take with l 14:00: food. Amlodipine No Notes: Memor ia 5-22 (Same as: l 14:00: Norvasc) clopidogrel No Notes: Connor beto 5-22 (Same As: l 14:00: Plavix) Aspirin No Notes: Memoria 5-22 Take with l 14:00: food. Amlodipine No Notes: Memor ia 5-22 (Same as: l 14:00: Norvasc) Pravastatin No Notes: Connor beto 5-22 (Same as: l 02:00: Pravachol) Pravastatin No Notes: Connor beto 5-22 (Same as: l 02:00: Pravachol) Pravastatin No Notes: Connor beto 5-22 (Same as: l 02:00: Pravachol) Pravastatin No Notes: Connor beto 5-22 (Same as: l 02:00: Pravachol) Pravastatin No Notes: Connor beto 5-22 (Same as: l 02:00: Pravachol) Pravastatin No Notes: Connor beto 5-22 (Same as: l 02:00: Pravachol) Pravastatin No Notes: Connor beto 5-22 (Same as: l 02:00: Pravachol) Pravastatin No Notes: Connor beto 5-22 (Same as: l 02:00: Pravachol) Pravastatin No Notes: Connor beto 5-22 (Same as: l 02:00: Pravachol) Hydralazine No Notes: Connor beto Hydrochlori 5-21 (Same as: l de 50 MG 22:00: Apresoline [place] Oral Tablet 00 ) May interfere w/enteral feedings Take With Food Hydralazine No Notes: Connor beto Hydrochlori 5-21 (Same as: l de 50 MG 22:00: Apresoline [place] Oral Tablet 00 ) May interfere w/enteral feedings Take With Food Hydralazine No Notes: Connor beto Hydrochlori 5-21 (Same as: l de 50 MG 22:00: Apresoline [place] Oral Tablet 00 ) May interfere w/enteral feedings Take With Food Hydralazine No Notes: Connor beto Hydrochlori 5-21 (Same as: l de 50 MG 22:00: Apresoline Her [place] Oral Tablet 00 ) May interfere w/enteral feedings Take With Food Hydralazine No Notes: Connor beto Hydrochlori 5-21 (Same as: l de 50 MG 22:00: Apresoline Her [place] Oral Tablet 00 ) May interfere w/enteral feedings Take With Food Hydralazine No Notes: Connor beto Hydrochlori 5-21 (Same as: l de 50 MG 22:00: Apresoline [place] Oral Tablet 00 ) May interfere w/enteral feedings Take With Food Hydralazine No Notes: Connor beto Hydrochlori 5-21 (Same as: l de 50 MG 22:00: Apresoline [place] Oral Tablet 00 ) May interfere w/enteral feedings Take With Food Hydralazine No Notes: Connor beto Hydrochlori 5-21 (Same as: l de 50 MG 22:00: Apresoline [place] Oral Tablet 00 ) May interfere w/enteral feedings Take With Food Hydralazine No Notes: Connor beto Hydrochlori 5-21 (Same as: l de 50 MG 22:00: Apresoline [place] Oral Tablet 00 ) May interfere w/enteral feedings Take With Food Miralax No Notes: Memoria 5-21 Dissolve l 20:24: in 8 oz of David 00 water or juice. (Same as: Miralax) Zofran No Notes: Memoria 5-21 (Same as: l 20:24: Zofran) David 00 MEDICATION WASTE Product Size: 4 mg Product Wasted: ___ mg Miralax No Notes: Memoria 5-21 Dissolve l 20:24: in 8 oz of [place] 00 water or juice. (Same as: Miralax) Zofran No Notes: Memoria 5-21 (Same as: l 20:24: Zofran) David MEDICATION WASTE Product Size: 4 mg Product Wasted: ___ mg Miralax 2017-0 No Notes: Memoria 5-21 Dissolve l 20:24: in 8 oz of David 00 water or juice. (Same as: Miralax) Zofran No Notes: Memoria 5-21 (Same as: l 20:24: Zofran) David 00 MEDICATION WASTE Product Size: 4 mg Product Wasted: ___ mg Miralax 0 No Notes: Memoria 5-21 Dissolve l 20:24: in 8 oz of [place] 00 water or juice. (Same as: Miralax) Zofran No Notes: Memoria 5-21 (Same as: l 20:24: Zofran) David 00 MEDICATION WASTE Product Size: 4 mg Product Wasted: ___ mg Miralax 2017-0 No Notes: Memoria 5-21 Dissolve l 20:24: in 8 oz of David 00 water or juice. (Same as: Miralax) Zofran No Notes: Memoria 5-21 (Same as: l 20:24: Zofran) [place] MEDICATION WASTE Product Size: 4 mg Product Wasted: ___ mg Miralax No Notes: Memoria 5-21 Dissolve l 20:24: in 8 oz of David 00 water or juice. (Same as: Miralax) Zofran No Notes: Memoria 5-21 (Same as: l 20:24: Zofran) David MEDICATION WASTE Product Size: 4 mg Product Wasted: ___ mg Miralax No Notes: Memoria 5-21 Dissolve l 20:24: in 8 oz of David 00 water or juice. (Same as: Miralax) Zofran No Notes: Memoria 5-21 (Same as: l 20:24: Zofran) David MEDICATION WASTE Product Size: 4 mg Product Wasted: ___ mg Miralax No Notes: Memoria 5-21 Dissolve l 20:24: in 8 oz of [place] 00 water or juice. (Same as: Miralax) Zofran No Notes: Memoria 5-21 (Same as: l 20:24: Zofran) David MEDICATION WASTE Product Size: 4 mg Product Wasted: ___ mg Miralax No Notes: Memoria 5-21 Dissolve l 20:24: in 8 oz of David 00 water or juice. (Same as: Miralax) Zofran No Notes: Memoria 5-21 (Same as: l 20:24: Zofran) [place] MEDICATION WASTE Product Size: 4 mg Product Wasted: ___ mg Hydralazine Yes 50 mg = 1 M emoria Hydrochlori 01-10 tab, PO, l de 50 MG 20:17: TID, 0 [place] Oral Tablet 00 Refill(s) Hydralazine Yes 50 mg = 1 M emoria Hydrochlori 5-21 tab, PO, l de 50 MG 20:17: TID, 0 [place] Oral Tablet 00 Refill(s) Hydralazine 2018-0 Yes 50 mg = 1 M emoria Hydrochlori 5-21 tab, PO, l de 50 MG 20:17: TID, 0 David Oral Tablet 00 Refill(s) Hydralazine 2018-0 Yes 50 mg = 1 M emoria Hydrochlori 5-21 tab, PO, l de 50 MG 20:17: TID, 0 [place] Oral Tablet 00 Refill(s) Hydralazine 2018-0 Yes 50 mg = 1 M emoria Hydrochlori 5-21 tab, PO, l de 50 MG 20:17: TID, 0 [place] Oral Tablet 00 Refill(s) Hydralazine 2018-0 Yes 50 mg = 1 M emoria Hydrochlori 5-21 tab, PO, l de 50 MG 20:17: TID, 0 [place] Oral Tablet 00 Refill(s) Hydralazine 2018-0 Yes 50 mg = 1 M emoria Hydrochlori 5-21 tab, PO, l de 50 MG 20:17: TID, 0 David Oral Tablet 00 Refill(s) Hydralazine 2018-0 Yes 50 mg = 1 M emoria Hydrochlori 5-21 tab, PO, l de 50 MG 20:17: TID, 0 David Oral Tablet 00 Refill(s) Hydralazine 2018-0 Yes 50 mg = 1 M emoria Hydrochlori 5-21 tab, PO, l de 50 MG 20:17: TID, 0 [place] Oral Tablet 00 Refill(s) metoprolol 2018-0 Yes 25 mg = 1 Me moria tartrate 25 5-21 tab, PO, l mg oral 12:58: BID, # 180 Herm shelbie tablet 00 tab, 0 Refill(s) metoprolol 2018-0 Yes 25 mg = 1 Me moria tartrate 25 5-21 tab, PO, l mg oral 12:58: BID, # 180 Herm shelbie tablet 00 tab, 0 Refill(s) metoprolol 2018-0 Yes 25 mg = 1 Me moria tartrate 25 5-21 tab, PO, l mg oral 12:58: BID, # 180 Herm shel[place] tablet 00 tab, 0 Refill(s) metoprolol 2018-0 Yes 25 mg = 1 Me moria tartrate 25 5-21 tab, PO, l mg oral 12:58: BID, # 180 Herm shelbie tablet 00 tab, 0 Refill(s) metoprolol 2018-0 Yes 25 mg = 1 Me moria tartrate 25 5-21 tab, PO, l mg oral 12:58: BID, # 180 Herm shelbie tablet 00 tab, 0 Refill(s) metoprolol 2018-0 Yes 25 mg = 1 Me moria tartrate 25 5-21 tab, PO, l mg oral 12:58: BID, # 180 Herm shelbie tablet 00 tab, 0 Refill(s) metoprolol 2018-0 Yes 25 mg = 1 Me moria tartrate 25 5-21 tab, PO, l mg oral 12:58: BID, # 180 Herm shel[place] tablet 00 tab, 0 Refill(s) metoprolol 2018-0 Yes 25 mg = 1 Me moria tartrate 25 5-21 tab, PO, l mg oral 12:58: BID, # 180 Herm shelbie tablet 00 tab, 0 Refill(s) metoprolol 2018-0 Yes 25 mg = 1 Me moria tartrate 25 5-21 tab, PO, l mg oral 12:58: BID, # 180 Herm shelbie tablet 00 tab, 0 Refill(s) bumetanide 2018-0 Yes 2 mg = 1 Mem oria 2 mg oral 5-21 tab, PO, l tablet 12:56: Daily, # [place] 00 30 tab, 0 Refill(s) bumetanide 2018-0 Yes 2 mg = 1 Mem oria 2 mg oral 5-21 tab, PO, l tablet 12:56: Daily, # David 00 30 tab, 0 Refill(s) bumetanide 2018-0 Yes 2 mg = 1 Mem oria 2 mg oral 5-21 tab, PO, l tablet 12:56: Daily, # David 00 30 tab, 0 Refill(s) bumetanide 2018-0 Yes 2 mg = 1 Mem oria 2 mg oral 5-21 tab, PO, l tablet 12:56: Daily, # Mcfarlan 00 30 tab, 0 Refill(s) bumetanide 2018-0 Yes 2 mg = 1 Mem oria 2 mg oral 5-21 tab, PO, l tablet 12:56: Daily, # David 00 30 tab, 0 Refill(s) bumetanide 2018-0 Yes 2 mg = 1 Mem oria 2 mg oral 5-21 tab, PO, l tablet 12:56: Daily, # David 30 tab, 0 Refill(s) bumetanide 2018-0 Yes 2 mg = 1 Mem oria 2 mg oral 5-21 tab, PO, l tablet 12:56: Daily, # Mcfarlan 30 tab, 0 Refill(s) bumetanide 2018-0 Yes 2 mg = 1 Mem oria 2 mg oral 5-21 tab, PO, l tablet 12:56: Daily, # David 30 tab, 0 Refill(s) bumetanide 2018-0 Yes 2 mg = 1 Mem oria 2 mg oral 5-21 tab, PO, l tablet 12:56: Daily, # Mcfarlan 30 tab, 0 Refill(s) Aspirin No Notes: Memoria 3-29 Take with l 14:00: food. clopidogrel No Notes: Connor beto 3-29 (Same As: l 14:00: Plavix) Aspirin No Notes: Memoria 3-29 Take with l 14:00: food. clopidogrel No Notes: Connor beto 3-29 (Same As: l 14:00: Plavix) Aspirin No Notes: Memoria 3-29 Take with l 14:00: food. clopidogrel No Notes: Connor beto 3-29 (Same As: l 14:00: Plavix) Aspirin No Notes: Memoria 3-29 Take with l 14:00: food. clopidogrel No Notes: Connor beto 3-29 (Same As: l 14:00: Plavix) Aspirin No Notes: Memoria 3-29 Take with l 14:00: food. clopidogrel No Notes: Connor beto 3-29 (Same As: l 14:00: Plavix) Aspirin No Notes: Memoria 3-29 Take with l 14:00: food. clopidogrel No Notes: Connor beto 3-29 (Same As: l 14:00: Plavix) Aspirin No Notes: Memoria 3-29 Take with l 14:00: food. clopidogrel No Notes: Connor beto 3-29 (Same As: l 14:00: Plavix) Aspirin No Notes: Memoria 3-29 Take with l 14:00: food. clopidogrel No Notes: Connor beto 3-29 (Same As: l 14:00: Plavix) Aspirin No Notes: Memoria 3-29 Take with l 14:00: food. clopidogrel No Notes: Connor beto 3-29 (Same As: l 14:00: Plavix) Morphine No Notes: Memoria 3-28 (Same l 21:42: as:MORPhin Mcfarlan 00 e Sulfate) Morphine No Notes: Memoria 3-28 (Same l 21:42: as:MORPhin David 00 e Sulfate) Morphine No Notes: Memoria 3-28 (Same l 21:42: as:MORPhin Mcfarlan 00 e Sulfate) Morphine No Notes: Memoria 3-28 (Same l 21:42: as:MORPhin Mcfarlan 00 e Sulfate) Morphine No Notes: Memoria 3-28 (Same l 21:42: as:MORPhin David 00 e Sulfate) Morphine No Notes: Memoria 3-28 (Same l 21:42: as:MORPhin Mcfarlan 00 e Sulfate) Morphine No Notes: Memoria 3-28 (Same l 21:42: as:MORPhin Mcfarlan 00 e Sulfate) Morphine No Notes: Memoria 3-28 (Same l 21:42: as:MORPhin Mcfarlan 00 e Sulfate) Morphine No Notes: Memoria 3-28 (Same l 21:42: as:MORPhin David 00 e Sulfate) Zofran No Notes: Memoria 3-28 (Same as: l 20:20: Zofran) MEDICATION WASTE Product Size: 4 mg Product Wasted: ___ mg Zofran No Notes: Memoria 3-28 (Same as: l 20:20: Zofran) David 00 MEDICATION WASTE Product Size: 4 mg Product Wasted: ___ mg Zofran 2017-0 No Notes: Memoria 11-17 (Same as: l 20:20: Zofran) David 00 MEDICATION WASTE Product Size: 4 mg Product Wasted: ___ mg Zofran 2017-0 No Notes: Memoria 11-17 (Same as: l 20:20: Zofran) David 00 MEDICATION WASTE Product Size: 4 mg Product Wasted: ___ mg Zofran 2017-0 No Notes: Memoria 11-17 (Same as: l 20:20: Zofran) David 00 MEDICATION WASTE Product Size: 4 mg Product Wasted: ___ mg Zofran 2017-0 No Notes: Memoria 11-17 (Same as: l 20:20: Zofran) David 00 MEDICATION WASTE Product Size: 4 mg Product Wasted: ___ mg Zofran 0 No Notes: Memoria 11-17 (Same as: l 20:20: Zofran) David 00 MEDICATION WASTE Product Size: 4 mg Product Wasted: ___ mg Zofran 2017-0 No Notes: Memoria 11-17 (Same as: l 20:20: Zofran) David 00 MEDICATION WASTE Product Size: 4 mg Product Wasted: ___ mg Zofran 2017-0 No Notes: Memoria 11-17 (Same as: l 20:20: Zofran) David 00 MEDICATION WASTE Product Size: 4 mg Product Wasted: ___ mg Hydralazine 2017-0 No Notes: Connor beto - (Same as: l 20:17: Apresoline David 00 ) Push over 5 minutes Hydralazine 2017-0 No Notes: Connor beto - (Same as: l 20:17: Apresoline Mcfarlan 00 ) Push over 5 minutes Hydralazine 2017-0 No Notes: Connor beto - (Same as: l 20:17: Apresoline Mcfarlan 00 ) Push over 5 minutes Hydralazine 2018-0 No Notes: Connor beto 3-28 (Same as: l 20:17: Apresoline Mcfarlan 00 ) Push over 5 minutes Hydralazine 2017-0 No Notes: Connor beto 3-28 (Same as: l 20:17: Apresoline Mcfarlan 00 ) Push over 5 minutes Hydralazine 2017-0 No Notes: Connor beto 3-28 (Same as: l 20:17: Apresoline Mcfarlan 00 ) Push over 5 minutes Hydralazine 2017-0 No Notes: Connor beto 3-28 (Same as: l 20:17: Apresoline David 00 ) Push over 5 minutes Hydralazine 2017-0 No Notes: Connor beto 3-28 (Same as: l 20:17: Apresoline Mcfarlan 00 ) Push over 5 minutes Hydralazine 0 No Notes: Connor beto 3-28 (Same as: l 20:17: Apresoline Mcfarlan ) Push over 5 minutes Ondansetron 2017-0 No Notes: Connor beto 2-28 (Same as: l 18:09: Zofr) Mcfarlan 00 MEDICATION WASTE Product Size: 4 mg Product Wasted: ___ mg Acetaminoph 2017-0 No Notes: Connor beto en 325 MG / 2-28 (Same as: l Hydrocodone 18:09: [place] Nay nn Bitartrate 00 325/5) Do 5 MG Oral not exceed Tablet 4gm/day of acetaminop hen. Ondansetron 0 No Notes: Connor beto 2-28 (Same as: l 18:09: Zofran) David 00 MEDICATION WASTE Product Size: 4 mg Product Wasted: ___ mg Acetaminoph 2017-0 No Notes: Connor beto en 325 MG / 2-28 (Same as: l Hydrocodone 18:09: [place] Nay nn Bitartrate 00 325/5) Do 5 MG Oral not exceed Tablet 4gm/day of acetaminop hen. Ondansetron 2017-0 No Notes: Connor beto 2-28 (Same as: l 18:09: Zofran) Mcfarlan 00 MEDICATION WASTE Product Size: 4 mg Product Wasted: ___ mg Acetaminoph 2017-0 No Notes: Connor beto en 325 MG / 2-28 (Same as: l Hydrocodone 18:09: [place] Nay nn Bitartrate 00 325/5) Do 5 MG Oral not exceed Tablet 4gm/day of acetaminop hen. Ondansetron 0 No Notes: Connor beto 2-28 (Same as: l 18:09: Zofr) David 00 MEDICATION WASTE Product Size: 4 mg Product Wasted: ___ mg Acetaminoph 2017- No Notes: Connor beto en 325 MG / 2-28 (Same as: l Hydrocodone 18:09: [place] Nay nn Bitartrate 00 325/5) Do 5 MG Oral not exceed Tablet 4gm/day of acetaminop hen. Ondansetron 2017-0 No Notes: Connor beto 2- (Same as: 18:09: Zo) David 00 MEDICATION WASTE Product Size: 4 mg Product Wasted: ___ mg Acetaminoph No Notes: Connor beto en 325 MG / 2- (Same as: l Hydrocodone 18:09: [place] Nay nn Bitartrate 00 325/5) Do 5 MG Oral not exceed Tablet 4gm/day of acetaminop hen. Ondansetron No Notes: Connor beto 2- (Same as: 18:09: Zo) Mcfarlan 00 MEDICATION WASTE Product Size: 4 mg Product Wasted: ___ mg Acetaminoph No Notes: Connor beto en 325 MG / 2- (Same as: l Hydrocodone 18:09: [place] Nay nn Bitartrate 00 325/5) Do 5 MG Oral not exceed Tablet 4gm/day of acetaminop hen. Ondansetron 0 No Notes: Connor beto 2-28 (Same as: l 18:09: Zofran) David 00 MEDICATION WASTE Product Size: 4 mg Product Wasted: ___ mg Acetaminoph 0 No Notes: Connor beto en 325 MG / 2-28 (Same as: l Hydrocodone 18:09: [place] Nay nn Bitartrate 00 325/5) Do 5 MG Oral not exceed Tablet 4gm/day of acetaminop hen. Ondansetron No Notes: Connor beto - (Same as: l 18:09: Zofran) MEDICATION WASTE Product Size: 4 mg Product Wasted: ___ mg Acetaminoph No Notes: Connor beto en 325 MG / 10-20 (Same as: l Hydrocodone 18:09: [place] Nay nn Bitartrate 00 325/5) Do 5 MG Oral not exceed Tablet 4gm/day of acetaminop hen. Ondansetron No Notes: Connor beto 2- (Same as: l 18:09: Zofran) MEDICATION WASTE Product Size: 4 mg Product Wasted: ___ mg Acetaminoph No Notes: Connor beto en 325 MG / 10-20 (Same as: l Hydrocodone 18:09: [place] Nay nn Bitartrate 00 325/5) Do 5 MG Oral not exceed Tablet 4gm/day of acetaminop hen. neostigmine 0 No Route: IV, Memoria (ANES) 10-20 Drug form: l 18:03: INJ, ONCE, Stop date: 10/20/17 12:03:00 HEATER INSTALLER glycopyrrol 2017-0 No Route: IV, Memoria ate (ANES) 10-20 Drug form: l 18:03: INJ, ONCE, Stop date: 10/20/17 12:03:00 HEATER INSTALLER neostigmine 2017-0 No Route: IV, Memoria (ANES) 10-20 Drug form: l 18:03: INJ, ONCE, Stop date: 10/20/17 12:03:00 HEATER INSTALLER glycopyrrol 2017-0 No Route: IV, Memoria ate (ANES) 10-20 Drug form: l 18:03: INJ, ONCE, Stop date: 10/20/17 12:03:00 HEATER INSTALLER neostigmine 2018-0 No Route: IV, Memoria (ANES) 10-20 Drug form: l 18:03: INJ, ONCE, Stop date: 10/20/17 12:03:00 HEATER INSTALLER glycopyrrol 2018-0 No Route: IV, Memoria ate (ANES) 10-20 Drug form: l 18:03: INJ, ONCE, Stop date: 10/20/17 12:03:00 HEATER INSTALLER neostigmine 2018-0 No Route: IV, Memoria (ANES) 10-20 Drug form: l 18:03: INJ, ONCE, Stop date: 10/20/17 12:03:00 HEATER INSTALLER glycopyrrol 2018-0 No Route: IV, Memoria ate (ANES) 10-20 Drug form: l 18:03: INJ, ONCE, Stop date: 10/20/17 12:03:00 HEATER INSTALLER neostigmine 2018-0 No Route: IV, Memoria (ANES) 10-20 Drug form: l 18:03: INJ, ONCE, Stop date: 10/20/17 12:03:00 HEATER INSTALLER glycopyrrol 2018-0 No Route: IV, Memoria ate (ANES) 10-20 Drug form: l 18:03: INJ, ONCE, Stop date: 10/20/17 12:03:00 HEATER INSTALLER neostigmine 2018-0 No Route: IV, Memoria (ANES) 10-20 Drug form: l 18:03: INJ, ONCE, Stop date: 10/20/17 12:03:00 HEATER INSTALLER glycopyrrol 2018-0 No Route: IV, Memoria ate (ANES) 10-20 Drug form: l 18:03: INJ, ONCE, Stop date: 10/20/17 12:03:00 HEATER INSTALLER neostigmine 2018-0 No Route: IV, Memoria (ANES) 10-20 Drug form: l 18:03: INJ, ONCE, Stop date: 10/20/17 12:03:00 HEATER INSTALLER glycopyrrol 2018-0 No Route: IV, Memoria ate (ANES) 10-20 Drug form: l 18:03: INJ, ONCE, Stop date: 10/20/17 12:03:00 HEATER INSTALLER neostigmine 2018-0 No Route: IV, Memoria (ANES) 10-20 Drug form: l 18:03: INJ, ONCE, Stop date: 10/20/17 12:03:00 HEATER INSTALLER glycopyrrol 2018-0 No Route: IV, Memoria ate (ANES) - Drug form: l 18:03: INJ, ONCE, Stop date: 10/20/17 12:03:00 HEATER INSTALLER neostigmine 2018-0 No Route: IV, Memoria (ANES) - Drug form: l 18:03: INJ, ONCE, Stop date: 10/20/17 12:03:00 HEATER INSTALLER glycopyrrol 2018-0 No Route: IV, Memoria ate (ANES) 10-20 Drug form: l 18:03: INJ, ONCE, Stop date: 10/20/17 12:03:00 HEATER INSTALLER phenylephri 2018-0 No Route: IV, Memoria ne (ANES) 10-20 Drug form: l 17:53: INJ, ONCE, Stop date: 10/20/17 11:53:00 HEATER INSTALLER phenylephri 2018-0 No Route: IV, Memoria ne (ANES) 10-20 Drug form: l 17:53: INJ, ONCE, Stop date: 10/20/17 11:53:00 HEATER INSTALLER phenylephri 2018-0 No Route: IV, Memoria ne (ANES) 10-20 Drug form: l 17:53: INJ, ONCE, Stop date: 10/20/17 11:53:00 HEATER INSTALLER phenylephri 2018-0 No Route: IV, Memoria ne (ANES) 10-20 Drug form: l 17:53: INJ, ONCE, Stop date: 10/20/17 11:53:00 HEATER INSTALLER phenylephri 2018-0 No Route: IV, Memoria ne (ANES) 10-20 Drug form: l 17:53: INJ, ONCE, Stop date: 10/20/17 11:53:00 HEATER INSTALLER phenylephri 2018-0 No Route: IV, Memoria ne (ANES) 10-20 Drug form: l 17:53: INJ, ONCE, Stop date: 10/20/17 11:53:00 HEATER INSTALLER phenylephri 2018-0 No Route: IV, Memoria ne (ANES) 10-20 Drug form: l 17:53: INJ, ONCE, Stop date: 10/20/17 11:53:00 HEATER INSTALLER phenylephri 2018-0 No Route: IV, Memoria ne (ANES) 2- Drug form: l 17:53: INJ, ONCE, Stop date: 10/20/17 11:53:00 HEATER INSTALLER phenylephri 2017-0 No Route: IV, Memoria ne (ANES) 2- Drug form: l 17:53: INJ, ONCE, Stop date: 10/20/17 11:53:00 HEATER INSTALLER fentaNYL 2018-0 No Route: IV, Mem oria (ANES) 2- Drug form: l 17:38: INJ, ONCE, Stop date: 10/20/17 11:38:00 HEATER INSTALLER midazolam 2018-0 No Route: IV, Me moria (ANES) 2- Drug form: l 17:38: SOLN, Mcfarlan ONCE, Stop date: 10/20/17 11:38:00 HEATER INSTALLER propofol 2018-0 No Route: IV, Mem oria (ANES) 2- Drug form: l 17:38: INJ, ONCE, Stop date: 10/20/17 11:38:00 HEATER INSTALLER rocuronium 2018-0 No Route: IV, M emoria (ANES) 2- Drug form: l 17:38: INJ, ONCE, Stop date: 10/20/17 11:38:00 HEATER INSTALLER fentaNYL 2018-0 No Route: IV, Mem oria (ANES) 2- Drug form: l 17:38: INJ, ONCE, Stop date: 10/20/17 11:38:00 HEATER INSTALLER midazolam 2018-0 No Route: IV, Me moria (ANES) 2- Drug form: l 17:38: SOLN, David ONCE, Stop date: 10/20/17 11:38:00 HEATER INSTALLER propofol 2018-0 No Route: IV, Mem oria (ANES) 2- Drug form: l 17:38: INJ, ONCE, Stop date: 10/20/17 11:38:00 HEATER INSTALLER rocuronium 2018-0 No Route: IV, M emoria (ANES) 2- Drug form: l 17:38: INJ, ONCE, Stop date: 10/20/17 11:38:00 HEATER INSTALLER fentaNYL 2018-0 No Route: IV, Mem oria (ANES) 2- Drug form: l 17:38: INJ, ONCE, David Stop date: 10/20/17 11:38:00 HEATER INSTALLER midazolam 2018-0 No Route: IV, Me moria (ANES) 2- Drug form: l 17:38: SOLN, David 00 ONCE, Stop date: 10/20/17 11:38:00 HEATER INSTALLER propofol 2018-0 No Route: IV, Mem oria (ANES) 2- Drug form: l 17:38: INJ, ONCE, David 00 Stop date: 10/20/17 11:38:00 HEATER INSTALLER rocuronium 2018-0 No Route: IV, M emoria (ANES) 2- Drug form: l 17:38: INJ, ONCE, David 00 Stop date: 10/20/17 11:38:00 HEATER INSTALLER fentaNYL 2018-0 No Route: IV, Mem oria (ANES) 2- Drug form: l 17:38: INJ, ONCE, Mcfarlan 00 Stop date: 10/20/17 11:38:00 HEATER INSTALLER midazolam 2018-0 No Route: IV, Me moria (ANES) 2- Drug form: l 17:38: SOLN, David 00 ONCE, Stop date: 10/20/17 11:38:00 HEATER INSTALLER propofol 2018-0 No Route: IV, Mem oria (ANES) 2- Drug form: l 17:38: INJ, ONCE, David 00 Stop date: 10/20/17 11:38:00 HEATER INSTALLER rocuronium 2018-0 No Route: IV, Kemal emoria (ANES) 2- Drug form: l 17:38: INJ, ONCE, Mcfarlan 00 Stop date: 10/20/17 11:38:00 HEATER INSTALLER fentaNYL 2018-0 No Route: IV, Mem oria (ANES) 2- Drug form: l 17:38: INJ, ONCE, Mcfarlan 00 Stop date: 10/20/17 11:38:00 HEATER INSTALLER midazolam 2018-0 No Route: IV, Me moria (ANES) 2- Drug form: l 17:38: SOLN, David 00 ONCE, Stop date: 10/20/17 11:38:00 HEATER INSTALLER propofol 2018-0 No Route: IV, Mem oria (ANES) 2- Drug form: l 17:38: INJ, ONCE, Mcfarlan 00 Stop date: 10/20/17 11:38:00 HEATER INSTALLER rocuronium 2018-0 No Route: IV, M emoria (ANES) 2- Drug form: l 17:38: INJ, ONCE, Stop date: 10/20/17 11:38:00 HEATER INSTALLER fentaNYL 2018-0 No Route: IV, Mem oria (ANES) 2- Drug form: l 17:38: INJ, ONCE, Stop date: 10/20/17 11:38:00 HEATER INSTALLER midazolam 2018-0 No Route: IV, Me moria (ANES) 2- Drug form: l 17:38: SOLN, Mcfarlan ONCE, Stop date: 10/20/17 11:38:00 HEATER INSTALLER propofol 2018-0 No Route: IV, Mem oria (ANES) 2- Drug form: l 17:38: INJ, ONCE, Stop date: 10/20/17 11:38:00 HEATER INSTALLER rocuronium 2018-0 No Route: IV, M emoria (ANES) 2- Drug form: l 17:38: INJ, ONCE, Stop date: 10/20/17 11:38:00 HEATER INSTALLER fentaNYL 2018-0 No Route: IV, Mem oria (ANES) 2- Drug form: l 17:38: INJ, ONCE, Stop date: 10/20/17 11:38:00 HEATER INSTALLER midazolam 2018-0 No Route: IV, Me moria (ANES) 2-28 Drug form: l 17:38: SOLN, Mcfarlan ONCE, Stop date: 10/20/17 11:38:00 HEATER INSTALLER propofol 2018-0 No Route: IV, Mem oria (ANES) 2- Drug form: l 17:38: INJ, ONCE, Stop date: 10/20/17 11:38:00 HEATER INSTALLER rocuronium 2018-0 No Route: IV, M emoria (ANES) 2-28 Drug form: l 17:38: INJ, ONCE, Stop date: 10/20/17 11:38:00 HEATER INSTALLER fentaNYL 2018-0 No Route: IV, Mem oria (ANES) 2- Drug form: l 17:38: INJ, ONCE, Stop date: 10/20/17 11:38:00 HEATER INSTALLER midazolam 2018-0 No Route: IV, Me moria (ANES) 2- Drug form: l 17:38: SOLN, Mcfarlan 00 ONCE, Stop date: 10/20/17 11:38:00 HEATER INSTALLER propofol 2018-0 No Route: IV, Mem oria (ANES) 2- Drug form: l 17:38: INJ, ONCE, Stop date: 10/20/17 11:38:00 HEATER INSTALLER rocuronium 2018-0 No Route: IV, M emoria (ANES) 2- Drug form: l 17:38: INJ, ONCE, Stop date: 10/20/17 11:38:00 HEATER INSTALLER fentaNYL 2018-0 No Route: IV, Mem oria (ANES) 2- Drug form: l 17:38: INJ, ONCE, Stop date: 10/20/17 11:38:00 HEATER INSTALLER midazolam 2018-0 No Route: IV, Me moria (ANES) 2- Drug form: l 17:38: SOLN, Mcfarlan 00 ONCE, Stop date: 10/20/17 11:38:00 HEATER INSTALLER propofol 2018-0 No Route: IV, Mem oria (ANES) 2- Drug form: l 17:38: INJ, ONCE, Stop date: 10/20/17 11:38:00 HEATER INSTALLER rocuronium 2018-0 No Route: IV, M emoria (ANES) 2- Drug form: l 17:38: INJ, ONCE, Stop date: 10/20/17 11:38:00 HEATER INSTALLER Fentanyl 2018-0 No Notes: Memoria 10-20 (Same as: l 17:08: Sublimaze) Preservat em free. Acetaminoph No Notes: Connor beto en 10-20 Infuse l 17:08: over 15 minutes Do not exceed 4gm/day of acetaminop hen MEDICATION WASTE Product Size: 1000 mg Product Wasted: ___ mg Flumazenil No Notes: Memor ia - (Same as: l 17:08: Romazicon) Naloxone 2017-0 No Notes: Memoria 10-20 (Same as: l 17:08: Narcan) Mcfarlan 00 Ondansetron No Notes: Connor beto 2-28 (Same as: l 17:08: Zofran) David 00 MEDICATION WASTE Product Size: 4 mg Product Wasted: ___ mg Dexamethaso No Notes: Connor beto ne 2-28 Concentrat l 17:08: ion: David 00 4mg/ml Hydralazine No Notes: Connor beto 2-28 (Same as: l 17:08: Apresoline ) Push over 5 minutes Labetalol No Notes: Memori a 2-28 (Same as: l 17:08: Normodyne, Mcfarlan Trandate) Push over 2 minutes Give bolus over 2-3 minutes. Fentanyl No Notes: Memoria 2-28 (Same as: l 17:08: Sublimaze) Preservat em free. Acetaminoph No Notes: Connor beto en 2- Infuse l 17:08: over 15 minutes Do not exceed 4gm/day of acetaminop hen MEDICATION WASTE Product Size: 1000 mg Product Wasted: ___ mg Flumazenil No Notes: Memor ia 2- (Same as: l 17:08: Romazicon) Naloxone No Notes: Memoria 2-28 (Same as: l 17:08: Narcan) Ondansetron No Notes: Connor beto 2-28 (Same as: l 17:08: Zofran) MEDICATION WASTE Product Size: 4 mg Product Wasted: ___ mg Dexamethaso 2017- No Notes: Connor beto ne 2-28 Concentrat l 17:08: ion: Mcfarlan 00 4mg/ml Hydralazine No Notes: Connor beto 2-28 (Same as: l 17:08: Apresoline ) Push over 5 minutes Labetalol No Notes: Memori a 2-28 (Same as: l 17:08: Normodyne, Mcfarlan Trandate) Push over 2 minutes Give bolus over 2-3 minutes. Fentanyl No Notes: Memoria 2-28 (Same as: l 17:08: Sublimaze) Preservat em free. Acetaminoph No Notes: Connor beto en 2- Infuse l 17:08: over 15 David 00 minutes Do not exceed 4gm/day of acetaminop hen MEDICATION WASTE Product Size: 1000 mg Product Wasted: ___ mg Flumazenil No Notes: Memor ia 2-28 (Same as: l 17:08: Romazicon) Naloxone No Notes: Memoria 2-28 (Same as: l 17:08: Narcan) Ondansetron No Notes: Connor beto 2-28 (Same as: l 17:08: Zofran) MEDICATION WASTE Product Size: 4 mg Product Wasted: ___ mg Dexamethaso No Notes: Connor beto ne 2- Concentrat l 17:08: ion: 4mg/ml Hydralazine No Notes: Connor beto 2-28 (Same as: l 17:08: Apresoline ) Push over 5 minutes Labetalol No Notes: Memori a 2- (Same as: l 17:08: Normodyne, Trandate) Push over 2 minutes Give bolus over 2-3 minutes. Fentanyl No Notes: Memoria 2-28 (Same as: l 17:08: Sublimaze) Preservat em free. Acetaminoph No Notes: Connor beto en 2-28 Infuse l 17:08: over 15 Mcfarlan 00 minutes Do not exceed 4gm/day of acetaminop hen MEDICATION WASTE Product Size: 1000 mg Product Wasted: ___ mg Flumazenil No Notes: Memor ia 2-28 (Same as: l 17:08: Romazicon) Naloxone No Notes: Memoria 2-28 (Same as: l 17:08: Narcan) Ondansetron No Notes: Connor beto 2-28 (Same as: l 17:08: Zofran) David 00 MEDICATION WASTE Product Size: 4 mg Product Wasted: ___ mg Dexamethaso No Notes: Connor beto ne 2-28 Concentrat l 17:08: ion: David 00 4mg/ml Hydralazine No Notes: Connor beto 2-28 (Same as: l 17:08: Apresoline Mcfarlan 00 ) Push over 5 minutes Labetalol No Notes: Memori a 2-28 (Same as: l 17:08: Normodyne, Mcfarlan 00 Trandate) Push over 2 minutes Give bolus over 2-3 minutes. Fentanyl No Notes: Memoria 2-28 (Same as: l 17:08: Sublimaze) Preservat em free. Acetaminoph No Notes: Connor beto en 2- Infuse l 17:08: over 15 00 minutes Do not exceed 4gm/day of acetaminop hen MEDICATION WASTE Product Size: 1000 mg Product Wasted: ___ mg Flumazenil No Notes: Memor ia 2- (Same as: l 17:08: Romazicon) Naloxone No Notes: Memoria 2-28 (Same as: l 17:08: Narcan) Ondansetron No Notes: Connor beto 2-28 (Same as: l 17:08: Zofran) MEDICATION WASTE Product Size: 4 mg Product Wasted: ___ mg Dexamethaso No Notes: Connor beto ne 2-28 Concentrat l 17:08: ion: Mcfarlan 00 4mg/ml Hydralazine No Notes: Connor beto 2-28 (Same as: l 17:08: Apresoline ) Push over 5 minutes Labetalol No Notes: Memori a 2-28 (Same as: l 17:08: Normodyne, Mcfarlan 00 Trandate) Push over 2 minutes Give bolus over 2-3 minutes. Fentanyl No Notes: Memoria 2-28 (Same as: l 17:08: Sublimaze) Mcfarlan 00 Preservat em free. Acetaminoph No Notes: Connor beto en 2- Infuse l 17:08: over 15 Mcfarlan 00 minutes Do not exceed 4gm/day of acetaminop hen MEDICATION WASTE Product Size: 1000 mg Product Wasted: ___ mg Flumazenil No Notes: Memor ia 2-28 (Same as: l 17:08: Romazicon) Naloxone No Notes: Memoria 2-28 (Same as: l 17:08: Narcan) Ondansetron No Notes: Connor beto 2-28 (Same as: l 17:08: Zofran) MEDICATION WASTE Product Size: 4 mg Product Wasted: ___ mg Dexamethaso No Notes: Connor beto ne 2- Concentrat l 17:08: ion: 4mg/ml Hydralazine No Notes: Connor beto 2- (Same as: l 17:08: Apresoline ) Push over 5 minutes Labetalol No Notes: Memori a 2- (Same as: l 17:08: Normodyne, Trandate) Push over 2 minutes Give bolus over 2-3 minutes. Fentanyl No Notes: Memoria 2- (Same as: l 17:08: Sublimaze) Preservat em free. Acetaminoph No Notes: Connor beto en 2- Infuse l 17:08: over 15 Mcfarlan 00 minutes Do not exceed 4gm/day of acetaminop hen MEDICATION WASTE Product Size: 1000 mg Product Wasted: ___ mg Flumazenil No Notes: Memor ia 2-28 (Same as: l 17:08: Romazicon) Naloxone No Notes: Memoria 2-28 (Same as: l 17:08: Narcan) Ondansetron No Notes: Connor beto 2-28 (Same as: l 17:08: Zofran) MEDICATION WASTE Product Size: 4 mg Product Wasted: ___ mg Dexamethaso 2017- No Notes: Connor beto ne 2- Concentrat l 17:08: ion: Mcfarlan 00 4mg/ml Hydralazine No Notes: Connor beto 2-28 (Same as: l 17:08: Apresoline David ) Push over 5 minutes Labetalol No Notes: Memori a 2-28 (Same as: l 17:08: Normodyne, Mcfarlan 00 Trandate) Push over 2 minutes Give bolus over 2-3 minutes. Fentanyl No Notes: Memoria 2-28 (Same as: l 17:08: Sublimaze) David 00 Preservat em free. Acetaminoph No Notes: Connor beto en 2- Infuse l 17:08: over 15 Mcfarlan 00 minutes Do not exceed 4gm/day of acetaminop hen MEDICATION WASTE Product Size: 1000 mg Product Wasted: ___ mg Flumazenil No Notes: Memor ia 2- (Same as: l 17:08: Romazicon) Naloxone No Notes: Memoria 2-28 (Same as: l 17:08: Narcan) Ondansetron No Notes: Connor beto - (Same as: l 17:08: Zofran) MEDICATION WASTE Product Size: 4 mg Product Wasted: ___ mg Dexamethaso No Notes: Connor beto ne - Concentrat l 17:08: ion: David 00 4mg/ml Hydralazine No Notes: Connor beto 2-28 (Same as: l 17:08: Apresoline Mcfarlan ) Push over 5 minutes Labetalol No Notes: Memori a 2-28 (Same as: l 17:08: Normodyne, Mcfarlan 00 Trandate) Push over 2 minutes Give bolus over 2-3 minutes. Fentanyl No Notes: Memoria 2-28 (Same as: l 17:08: Sublimaze) Mcfarlan Preservat em free. Acetaminoph No Notes: Connor beto en 2-28 Infuse l 17:08: over 15 minutes Do not exceed 4gm/day of acetaminop hen MEDICATION WASTE Product Size: 1000 mg Product Wasted: ___ mg Flumazenil No Notes: Memor ia 10-20 (Same as: l 17:08: Romazicon) Naloxone No Notes: Memoria 10-20 (Same as: l 17:08: Narcan) Ondansetron No Notes: Connor beto 10-20 (Same as: l 17:08: Zofran) MEDICATION WASTE Product Size: 4 mg Product Wasted: ___ mg Dexamethaso No Notes: Connor beto ne 10-20 Concentrat l 17:08: ion: 4mg/ml Hydralazine No Notes: Connor beto 10-20 (Same as: l 17:08: Apresoline ) Push over 5 minutes Labetalol No Notes: Memori a 10-20 (Same as: l 17:08: Normodyne, Trandate) Push over 2 minutes Give bolus over 2-3 minutes. vancomycin No Route: IV, M emoria (ANES) 1.10-20 Drug form: l gm 17:05: INJ, Start date: 10/20/17 11:05:00 HEATER INSTALLER, Stop date: 10/20/17 12:05:00 HEATER INSTALLER vancomycin No Route: IV, M emoria (ANES) 1.5 10-20 Drug form: l gm 17:05: INJ, Start date: 10/20/17 11:05:00 HEATER INSTALLER, Stop date: 10/20/17 12:05:00 HEATER INSTALLER vancomycin No Route: IV, M emoria (ANES) 1.5 10-20 Drug form: l gm 17:05: INJ, Start date: 10/20/17 11:05:00 HEATER INSTALLER, Stop date: 10/20/17 12:05:00 HEATER INSTALLER vancomycin No Route: IV, M emoria (ANES) 1.5 10-20 Drug form: l gm 17:05: INJ, Start David 00 date: 10/20/17 11:05:00 HEATER INSTALLER, Stop date: 10/20/17 12:05:00 HEATER INSTALLER vancomycin 2018-0 No Route: IV, M emoria (ANES) 1.5 10-20 Drug form: l gm 17:05: INJ, Start date: 10/20/17 11:05:00 HEATER INSTALLER, Stop date: 10/20/17 12:05:00 HEATER INSTALLER vancomycin 2018-0 No Route: IV, M emoria (ANES) 1.5 10-20 Drug form: l gm 17:05: INJ, Start date: 10/20/17 11:05:00 HEATER INSTALLER, Stop date: 10/20/17 12:05:00 HEATER INSTALLER vancomycin 2017-0 No Route: IV, M emoria (ANES) 1.5 10-20 Drug form: l gm 17:05: INJ, Start date: 10/20/17 11:05:00 HEATER INSTALLER, Stop date: 10/20/17 12:05:00 HEATER INSTALLER vancomycin 2017-0 No Route: IV, M emoria (ANES) 1.5 10-20 Drug form: l gm 17:05: INJ, Start date: 10/20/17 11:05:00 HEATER INSTALLER, Stop date: 10/20/17 12:05:00 HEATER INSTALLER vancomycin 2017-0 No Route: IV, M emoria (ANES) 1.5 10-20 Drug form: l gm 17:05: INJ, Start date: 10/20/17 11:05:00 HEATER INSTALLER, Stop date: 10/20/17 12:05:00 HEATER INSTALLER Sodium 2018-0 No Route: IV, Memor ia Chloride 2-28 Total l 0.9% IV 16:52: Volume: David (ANES) 500 00 500, Start mL date: 10/20/17 10:52:00 HEATER INSTALLER, Stop date: 10/20/17 11:52:00 HEATER INSTALLER Sodium 2018-0 No Route: IV, Memor ia Chloride 2-28 Total l 0.9% IV 16:52: Volume: Mcfarlan (ANES) 500 00 500, Start mL date: 10/20/17 10:52:00 HEATER INSTALLER, Stop date: 10/20/17 11:52:00 HEATER INSTALLER Sodium 2018-0 No Route: IV, Memor ia Chloride 2-28 Total l 0.9% IV 16:52: Volume: David (ANES) 500 00 500, Start mL date: 10/20/17 10:52:00 HEATER INSTALLER, Stop date: 10/20/17 11:52:00 HEATER INSTALLER Sodium 2018-0 No Route: IV, Memor ia Chloride 2-28 Total l 0.9% IV 16:52: Volume: Mcfarlan (ANES) 500 00 500, Start mL date: 10/20/17 10:52:00 HEATER INSTALLER, Stop date: 10/20/17 11:52:00 HEATER INSTALLER Sodium 2018-0 No Route: IV, Memor ia Chloride 2-28 Total l 0.9% IV 16:52: Volume: David (ANES) 500 00 500, Start mL date: 10/20/17 10:52:00 HEATER INSTALLER, Stop date: 10/20/17 11:52:00 HEATER INSTALLER Sodium 2018-0 No Route: IV, Memor ia Chloride 2-28 Total l 0.9% IV 16:52: Volume: David (ANES) 500 00 500, Start mL date: 10/20/17 10:52:00 HEATER INSTALLER, Stop date: 10/20/17 11:52:00 HEATER INSTALLER Sodium 2018-0 No Route: IV, Memor ia Chloride 2-28 Total l 0.9% IV 16:52: Volume: Mcfarlan (ANES) 500 00 500, Start mL date: 10/20/17 10:52:00 HEATER INSTALLER, Stop date: 10/20/17 11:52:00 HEATER INSTALLER Sodium 2018-0 No Route: IV, Memor ia Chloride 2-28 Total l 0.9% IV 16:52: Volume: David (ANES) 500 00 500, Start mL date: 10/20/17 10:52:00 HEATER INSTALLER, Stop date: 10/20/17 11:52:00 HEATER INSTALLER Sodium 2018-0 No Route: IV, Memor ia Chloride 2-28 Total l 0.9% IV 16:52: Volume: Mcfarlan (ANES) 500 00 500, Start mL date: 10/20/17 10:52:00 HEATER INSTALLER, Stop date: 10/20/17 11:52:00 HEATER INSTALLER Lidocaine 2018-0 No Notes: Memori a 25 MG/ML / 2-28 Apply to l Prilocaine 16:48: desired Herm shelbie 25 MG/ML 00 area 2 hrs Topical prior to Cream needle [EMLA] insertion. (Same as: Emla) Lidocaine No Notes: Memori a 25 MG/ML / 2-28 Apply to l Prilocaine 16:48: desired Herm shelbie 25 MG/ML 00 area 2 hrs Topical prior to Cream needle [EMLA] insertion. (Same as: Emla) Lidocaine No Notes: Memori a 25 MG/ML / 2-28 Apply to l Prilocaine 16:48: desired Herm shelbie 25 MG/ML 00 area 2 hrs Topical prior to Cream needle [EMLA] insertion. (Same as: Emla) Lidocaine No Notes: Memori a 25 MG/ML / 2-28 Apply to l Prilocaine 16:48: desired Herm shelbie 25 MG/ML 00 area 2 hrs Topical prior to Cream needle [EMLA] insertion. (Same as: Emla) Lidocaine No Notes: Memori a 25 MG/ML / 2-28 Apply to l Prilocaine 16:48: desired Herm shelbie 25 MG/ML 00 area 2 hrs Topical prior to Cream needle [EMLA] insertion. (Same as: Emla) Lidocaine No Notes: Memori a 25 MG/ML / 2-28 Apply to l Prilocaine 16:48: desired Herm shelbie 25 MG/ML 00 area 2 hrs Topical prior to Cream needle [EMLA] insertion. (Same as: Emla) Lidocaine No Notes: Memori a 25 MG/ML / 2-28 Apply to l Prilocaine 16:48: desired Herm shelbie 25 MG/ML 00 area 2 hrs Topical prior to Cream needle [EMLA] insertion. (Same as: Emla) Lidocaine No Notes: Memori a 25 MG/ML / 2-28 Apply to l Prilocaine 16:48: desired Herm shelbie 25 MG/ML 00 area 2 hrs Topical prior to Cream needle [EMLA] insertion. (Same as: Emla) Lidocaine No Notes: Memori a 25 MG/ML / 2-28 Apply to l Prilocaine 16:48: desired Herm shelbie 25 MG/ML 00 area 2 hrs Topical prior to Cream needle [EMLA] insertion. (Same as: Emla) Vancomycin 2018-0 No 2000 mg: Me moria 2-28 infuse l 14:00: over 2.5 Mcfarlan 00 hours For adult patients only: Round to nearest 250 mg per Medical Staff approval MEDICATION WASTE Product Size: 1000 mg Product Wasted: ___ mg Vancomycin 2018-0 No 2001 mg: Me moria 2-28 infuse l 14:00: over 2.5 Mcfarlan 00 hours For adult patients only: Round to nearest 250 mg per Medical Staff approval MEDICATION WASTE Product Size: 1000 mg Product Wasted: ___ mg Vancomycin 2018-0 No 2001 mg: Me moria 2-28 infuse l 14:00: over 2.5 David 00 hours For adult patients only: Round to nearest 250 mg per Medical Staff approval MEDICATION WASTE Product Size: 1000 mg Product Wasted: ___ mg Vancomycin 2018-0 No 2001 mg: Me moria 2-28 infuse l 14:00: over 2.5 David 00 hours For adult patients only: Round to nearest 250 mg per Medical Staff approval MEDICATION WASTE Product Size: 1000 mg Product Wasted: ___ mg Vancomycin 2018-0 No 2001 mg: Me moria 2-28 infuse l 14:00: over 2.5 David 00 hours For adult patients only: Round to nearest 250 mg per Medical Staff approval MEDICATION WASTE Product Size: 1000 mg Product Wasted: ___ mg Vancomycin 2018-0 No 2001 mg: Me moria 2-28 infuse l 14:00: over 2.5 David 00 hours For adult patients only: Round to nearest 250 mg per Medical Staff approval MEDICATION WASTE Product Size: 1000 mg Product Wasted: ___ mg Vancomycin 2018-0 No 2001 mg: Me moria 2-28 infuse l 14:00: over 2.5 David 00 hours For adult patients only: Round to nearest 250 mg per Medical Staff approval MEDICATION WASTE Product Size: 1000 mg Product Wasted: ___ mg Vancomycin 2018-0 No 2001 mg: Me moria 2-28 infuse l 14:00: over 2.5 [place]an 00 hours For adult patients only: Round to nearest 250 mg per Medical Staff approval MEDICATION WASTE Product Size: 1000 mg Product Wasted: ___ mg Vancomycin 2018-0 No 2000 mg: Me moria 2-28 infuse l 14:00: over 2.5 David 00 hours For adult patients only: Round to nearest 250 mg per Medical Staff approval MEDICATION WASTE Product Size: 1000 mg Product Wasted: ___ mg Insulin 2017-0 No Notes: Memoria Lispro 2-28 (Same as: l : Humalog ) David 00 Roll in palms of hands gently; Do not shake `vigorousl y. "Single Patient Use Only " WASTE: F/P - Black; E - Municipal Trash Bin Stable for 28 days at room temperatur e. Expires in days from ____Date Dextrose 2017-0 No 12.5 gm, Memor ia 50% Syringe 10-20 25 mL, l 11:28: Route: 00 IVP, Drug Form: INJ, Dosing Weight 99.091, kg, PRN, PRN Blood Glucose Results, Start date: 10/20/17 5:28:00 HEATER INSTALLER, Duration: 30 day, Stop date: 11/19/17 6:27:00 CDT Glucagon 2017-0 No 1 mg, Memoria 2- Route: IM, l 11:28: Drug form: David 00 PDR/INJ, PRN, Dosing Weight 99.091, kg, PRN Blood Glucose Results, Start date: 10/20/17 5:28:00 HEATER INSTALLER, Duration: 30 day, Stop date: 11/19/17 6:27:00 CDT Insulin 2018-0 No Notes: Memoria Lispro 2-28 (Same as: l : Humalog ) Mcfarlan 00 Roll in palms of hands gently; Do not shake `vigorousl y. "Single Patient Use Only " WASTE: F/P - Black; E - Municipal Trash Bin Stable for 28 days at room temperatur e. Expires in days from ____Date Dextrose 2017-0 No 12.5 gm, Memor ia 50% Syringe 10-20 25 mL, l 11:28: Route: David 00 IVP, Drug Form: INJ, Dosing Weight 99.091, kg, PRN, PRN Blood Glucose Results, Start date: 10/20/17 5:28:00 HEATER INSTALLER, Duration: 30 day, Stop date: 11/19/17 6:27:00 CDT Glucagon 2017-0 No 1 mg, Memoria 10-20 Route: IM, l 11:28: Drug form: [place]arl[place] 00 PDR/INJ, PRN, Dosing Weight 99.091, kg, PRN Blood Glucose Results, Start date: 10/20/17 5:28:00 HEATER INSTALLER, Duration: 30 day, Stop date: 11/19/17 6:27:00 CDT Insulin 2017-0 No Notes: Memoria Lispro 10-20 (Same as: l : Humalog ) Roll in palms of hands gently; Do not shake `vigorousl y. "Single Patient Use Only " WASTE: F/P - Black; E - Municipal Trash Bin Stable for 28 days at room temperatur e. Expires in days from ____Date Dextrose 2017-0 No 12.5 gm, Memor ia 50% Syringe 10-20 25 mL, l 11:28: Route: David 00 IVP, Drug Form: INJ, Dosing Weight 99.091, kg, PRN, PRN Blood Glucose Results, Start date: 10/20/17 5:28:00 HEATER INSTALLER, Duration: 30 day, Stop date: 11/19/17 6:27:00 CDT Glucagon 2017-0 No 1 mg, Memoria 10-20 Route: IM, l 11:28: Drug form: David 00 PDR/INJ, PRN, Dosing Weight 99.091, kg, PRN Blood Glucose Results, Start date: 10/20/17 5:28:00 HEATER INSTALLER, Duration: 30 day, Stop date: 11/19/17 6:27:00 CDT Insulin 2018-0 No Notes: Memoria Lispro 10-20 (Same as: l : Humalog ) Roll in palms of hands gently; Do not shake `vigorousl y. "Single Patient Use Only " WASTE: F/P - Black; E - Municipal Trash Bin Stable for 28 days at room temperatur e. Expires in days from ____Date Dextrose 2018-0 No 12.5 gm, Memor ia 50% Syringe 2-28 25 mL, l 11:28: Route: David 00 IVP, Drug Form: INJ, Dosing Weight 99.091, kg, PRN, PRN Blood Glucose Results, Start date: 10/20/17 5:28:00 HEATER INSTALLER, Duration: 30 day, Stop date: 11/19/17 6:27:00 CDT Glucagon 2018-0 No 1 mg, Memoria 2-28 Route: IM, l 11:28: Drug form: Mcfarlan 00 PDR/INJ, PRN, Dosing Weight 99.091, kg, PRN Blood Glucose Results, Start date: 10/20/17 5:28:00 HEATER INSTALLER, Duration: 30 day, Stop date: 11/19/17 6:27:00 CDT Insulin 2018-0 No Notes: Memoria Lispro - (Same as: l 11:28: Humalog ) Roll in palms of hands gently; Do not shake `vigorousl y. "Single Patient Use Only " WASTE: F/P - Black; E - Municipal Trash Bin Stable for 28 days at room temperatur e. Expires in days from ____Date Dextrose 2018-0 No 12.5 gm, Memor ia 50% Syringe 2-28 25 mL, l 11:28: Route: [place] 00 IVP, Drug Form: INJ, Dosing Weight 99.091, kg, PRN, PRN Blood Glucose Results, Start date: 10/20/17 5:28:00 HEATER INSTALLER, Duration: 30 day, Stop date: 11/19/17 6:27:00 CDT Glucagon 2018-0 No 1 mg, Memoria 2-28 Route: IM, l 11:28: Drug form: [place]arlan 00 PDR/INJ, PRN, Dosing Weight 99.091, kg, PRN Blood Glucose Results, Start date: 10/20/17 5:28:00 HEATER INSTALLER, Duration: 30 day, Stop date: 11/19/17 6:27:00 CDT Insulin 2018-0 No Notes: Memoria Lispro 2-28 (Same as: l : Humalog ) Mcfarlan 00 Roll in palms of hands gently; Do not shake `vigorousl y. "Single Patient Use Only " WASTE: F/P - Black; E - Municipal Trash Bin Stable for 28 days at room temperatur e. Expires in days from ____Date Dextrose 2018-0 No 12.5 gm, Memor ia 50% Syringe 2-28 25 mL, l 11:28: Route: David 00 IVP, Drug Form: INJ, Dosing Weight 99.091, kg, PRN, PRN Blood Glucose Results, Start date: 10/20/17 5:28:00 HEATER INSTALLER, Duration: 30 day, Stop date: 11/19/17 6:27:00 CDT Glucagon 2017-0 No 1 mg, Memoria 10-20 Route: IM, l 11:28: Drug form: David 00 PDR/INJ, PRN, Dosing Weight 99.091, kg, PRN Blood Glucose Results, Start date: 10/20/17 5:28:00 HEATER INSTALLER, Duration: 30 day, Stop date: 11/19/17 6:27:00 CDT Insulin 2017-0 No Notes: Memoria Lispro 2-28 (Same as: l : Humalog ) David 00 Roll in palms of hands gently; Do not shake `vigorousl y. "Single Patient Use Only " WASTE: F/P - Black; E - Municipal Trash Bin Stable for 28 days at room temperatur e. Expires in days from ____Date Dextrose 2017-0 No 12.5 gm, Memor ia 50% Syringe 2-28 25 mL, l 11:28: Route: [place]an 00 IVP, Drug Form: INJ, Dosing Weight 99.091, kg, PRN, PRN Blood Glucose Results, Start date: 10/20/17 5:28:00 HEATER INSTALLER, Duration: 30 day, Stop date: 11/19/17 6:27:00 CDT Glucagon 2017-0 No 1 mg, Memoria 10-20 Route: IM, l 11:28: Drug form: David 00 PDR/INJ, PRN, Dosing Weight 99.091, kg, PRN Blood Glucose Results, Start date: 10/20/17 5:28:00 HEATER INSTALLER, Duration: 30 day, Stop date: 11/19/17 6:27:00 CDT Insulin 2018-0 No Notes: Memoria Lispro 2-28 (Same as: l 11:28: Humalog ) Mcfarlan 00 Roll in palms of hands gently; Do not shake `vigorousl y. "Single Patient Use Only " WASTE: F/P - Black; E - Municipal Trash Bin Stable for 28 days at room temperatur e. Expires in days from ____Date Dextrose 2018-0 No 12.5 gm, Memor ia 50% Syringe 2- 25 mL, l 11:28: Route: David 00 IVP, Drug Form: INJ, Dosing Weight 99.091, kg, PRN, PRN Blood Glucose Results, Start date: 10/20/17 5:28:00 HEATER INSTALLER, Duration: 30 day, Stop date: 11/19/17 6:27:00 CDT Glucagon 2018-0 No 1 mg, Memoria 2-28 Route: IM, l 11:28: Drug form: David 00 PDR/INJ, PRN, Dosing Weight 99.091, kg, PRN Blood Glucose Results, Start date: 10/20/17 5:28:00 HEATER INSTALLER, Duration: 30 day, Stop date: 11/19/17 6:27:00 CDT Insulin 2018-0 No Notes: Memoria Lispro 2-28 (Same as: l :: Humalog ) Mcfarlan 00 Roll in palms of hands gently; Do not shake `vigorousl y. "Single Patient Use Only " WASTE: F/P - Black; E - Municipal Trash Bin Stable for 28 days at room temperatur e. Expires in days from ____Date Dextrose 2018-0 No 12.5 gm, Memor ia 50% Syringe 2-28 25 mL, l 11:28: Route: [place]arl[place] 00 IVP, Drug Form: INJ, Dosing Weight 99.091, kg, PRN, PRN Blood Glucose Results, Start date: 10/20/17 5:28:00 HEATER INSTALLER, Duration: 30 day, Stop date: 11/19/17 6:27:00 CDT Glucagon No 1 mg, Memoria 10-20 Route: IM, l 11:28: Drug form: David 00 PDR/INJ, PRN, Dosing Weight 99.091, kg, PRN Blood Glucose Results, Start date: 10/20/17 5:28:00 HEATER INSTALLER, Duration: 30 day, Stop date: 11/19/17 6:27:00 CDT Ondansetron No Notes: Connor beto 10-20 (Same as: l 04:19: Zofran) Mcfarlan 00 MEDICATION WASTE Product Size: 4 mg Product Wasted: ___ mg Acetaminoph No Notes: Do M emoria en 10-20 not exceed l 04:19: 4 gm/day. Mcfarlan 00 (Same as: Tylenol) Morphine No Notes: Memoria 10-20 (Same l 04:19: as:MORPhin Mcfarlan 00 e Sulfate) Ondansetron No Notes: Connor beto 10-20 (Same as: l 04:19: Zofran) David 00 MEDICATION WASTE Product Size: 4 mg Product Wasted: ___ mg Acetaminoph No Notes: Do M emoria en 10-20 not exceed l 04:19: 4 gm/day. David 00 (Same as: Tylenol) Morphine No Notes: Memoria 10-20 (Same l 04:19: as:MORPhin Mcfarlan 00 e Sulfate) Ondansetron No Notes: Connor beto 10-20 (Same as: l 04:19: Zofran) Mcfarlan 00 MEDICATION WASTE Product Size: 4 mg Product Wasted: ___ mg Acetaminoph No Notes: Do M emoria en 10-20 not exceed l 04:19: 4 gm/day. Mcfarlan 00 (Same as: Tylenol) Morphine No Notes: Memoria 10-20 (Same l 04:19: as:MORPhin David 00 e Sulfate) Ondansetron No Notes: Connor beto - (Same as: l 04:19: Zofran) David 00 MEDICATION WASTE Product Size: 4 mg Product Wasted: ___ mg Acetaminoph No Notes: Do M emoria en 10-20 not exceed l 04:19: 4 gm/day. Mcfarlan 00 (Same as: Tylenol) Morphine No Notes: Memoria 10-20 (Same l 04:19: as:MORPhin David 00 e Sulfate) Ondansetron No Notes: Connor beto 10-20 (Same as: l 04:19: Zofran) Mcfarlan 00 MEDICATION WASTE Product Size: 4 mg Product Wasted: ___ mg Acetaminoph No Notes: Do M emoria en 10-20 not exceed l 04:19: 4 gm/day. Mcfarlan 00 (Same as: Tylenol) Morphine No Notes: Memoria 10-20 (Same l 04:19: as:MORPhin Mcfarlan 00 e Sulfate) Ondansetron No Notes: Connor beto 10-20 (Same as: l 04:19: Zofran) Mcfarlan 00 MEDICATION WASTE Product Size: 4 mg Product Wasted: ___ mg Acetaminoph No Notes: Do M emoria en 10-20 not exceed l 04:19: 4 gm/day. Mcfarlan 00 (Same as: Tylenol) Morphine No Notes: Memoria 10-20 (Same l 04:19: as:MORPhin Mcfarlan 00 e Sulfate) Ondansetron No Notes: Connor beto 10-20 (Same as: l 04:19: Zofran) Mcfarlan 00 MEDICATION WASTE Product Size: 4 mg Product Wasted: ___ mg Acetaminoph No Notes: Do M emoria en 10-20 not exceed l 04:19: 4 gm/day. Mcfarlan 00 (Same as: Tylenol) Morphine No Notes: Memoria 10-20 (Same l 04:19: as:MORPhin David 00 e Sulfate) Ondansetron No Notes: Connor beto 2- (Same as: l 04:19: Zofran) Mcfarlan 00 MEDICATION WASTE Product Size: 4 mg Product Wasted: ___ mg Acetaminoph No Notes: Do M emoria en 10-20 not exceed l 04:19: 4 gm/day. David 00 (Same as: Tylenol) Morphine No Notes: Memoria 10-20 (Same l 04:19: as:MORPhin David 00 e Sulfate) Ondansetron No Notes: Connor beto 10-20 (Same as: l 04:19: Zofran) Mcfarlan 00 MEDICATION WASTE Product Size: 4 mg Product Wasted: ___ mg Acetaminoph No Notes: Do M emoria en 10-20 not exceed l 04:19: 4 gm/day. Mcfarlan 00 (Same as: Tylenol) Morphine No Notes: Memoria 10-20 (Same l 04:19: as:MORPhin Mcfarlan 00 e Sulfate) Vasotec No 1.25 mg, Memori a 2- Route: IV, l 03:34: ONCE, David Dosing Weight 99.364, kg, Priority: STAT, Start date: 10/19/17 21:34:00 HEATER INSTALLER, Stop date: 10/19/17 21:34:00 HEATER INSTALLER Vasotec 2017-0 No 1.25 mg, Memori a 2- Route: IV, l 03:34: ONCE, David Dosing Weight 99.364, kg, Priority: STAT, Start date: 10/19/17 21:34:00 HEATER INSTALLER, Stop date: 10/19/17 21:34:00 HEATER INSTALLER Vasotec 2017-0 No 1.25 mg, Memori a 2-28 Route: IV, l 03:34: ONCE, David Dosing Weight 99.364, kg, Priority: STAT, Start date: 10/19/17 21:34:00 HEATER INSTALLER, Stop date: 10/19/17 21:34:00 HEATER INSTALLER Vasotec 0 No 1.25 mg, Memori a 2-28 Route: IV, l 03:34: ONCE, Mcfarlan Dosing Weight 99.364, kg, Priority: STAT, Start date: 10/19/17 21:34:00 HEATER INSTALLER, Stop date: 10/19/17 21:34:00 HEATER INSTALLER Vasotec 2018-0 No 1.25 mg, Memori a 2-28 Route: IV, l 03:34: ONCE, [place]an Dosing Weight 99.364, kg, Priority: STAT, Start date: 10/19/17 21:34:00 HEATER INSTALLER, Stop date: 10/19/17 21:34:00 HEATER INSTALLER Vasotec 2018-0 No 1.25 mg, Memori a 2-28 Route: IV, l 03:34: ONCE, David Dosing Weight 99.364, kg, Priority: STAT, Start date: 10/19/17 21:34:00 HEATER INSTALLER, Stop date: 10/19/17 21:34:00 HEATER INSTALLER Vasotec 2018-0 No 1.25 mg, Memori a 2-28 Route: IV, l 03:34: ONCE, David 00 Dosing Weight 99.364, kg, Priority: STAT, Start date: 10/19/17 21:34:00 HEATER INSTALLER, Stop date: 10/19/17 21:34:00 HEATER INSTALLER Vasotec 2018-0 No 1.25 mg, Memori a 2-28 Route: IV, l 03:34: ONCE, David 00 Dosing Weight 99.364, kg, Priority: STAT, Start date: 10/19/17 21:34:00 HEATER INSTALLER, Stop date: 10/19/17 21:34:00 HEATER INSTALLER Vasotec 2018-0 No 1.25 mg, Memori a 2-28 Route: IV, l 03:34: ONCE, [place] 00 Dosing Weight 99.364, kg, Priority: STAT, Start date: 10/19/17 21:34:00 HEATER INSTALLER, Stop date: 10/19/17 21:34:00 HEATER INSTALLER GI cocktail 2016-08 Yes Notes: Connor beto 2-20 G.I. l 08:46: Cocktail = David 00 antacid with simethicon e 22.5 mL - lidocaine viscous 7.5 mL GI cocktail 2016-08 Yes Notes: Connor beto 2-20 G.I. l 08:46: Cocktail = [place] 00 antacid with simethicon e 22.5 mL - lidocaine viscous 7.5 mL GI cocktail 2016-08 Yes Notes: Connor beto 2-20 G.I. l 08:46: Cocktail = David 00 antacid with simethicon e 22.5 mL - lidocaine viscous 7.5 mL GI cocktail 2016-08 Yes Notes: Connor beto 2-20 G.I. l 08:46: Cocktail = [place] 00 antacid with simethicon e 22.5 mL - lidocaine viscous 7.5 mL GI cocktail 2016-08 Yes Notes: Connor beto 2-20 G.I. l 08:46: Cocktail = [place] 00 antacid with simethicon e 22.5 mL - lidocaine viscous 7.5 mL GI cocktail 2016-08 Yes Notes: Connor beto 2-20 G.I. l 08:46: Cocktail = [place] 00 antacid with simethicon e 22.5 mL - lidocaine viscous 7.5 mL GI cocktail 2016-08 Yes Notes: Connor beto 2-20 G.I. l 08:46: Cocktail = [place] 00 antacid with simethicon e 22.5 mL - lidocaine viscous 7.5 mL GI cocktail 2016-08 Yes Notes: Connor beto 2-20 G.I. l 08:46: Cocktail = David 00 antacid with simethicon e 22.5 mL - lidocaine viscous 7.5 mL GI cocktail 2016-08 Yes Notes: Connor beto 2-20 G.I. l 08:46: Cocktail = [place] 00 antacid with simethicon e 22.5 mL - lidocaine viscous 7.5 mL Ondansetron 2016-08 No 4 mg, Memor ia 2-20 Route: l 07:30: IVP, Drug David 00 form: INJ, ONCE, Dosing Weight 104.545, kg, Priority: STAT, Start date: 08/11/17 1:30:00 HEATER INSTALLER, Stop date: 08/11/17 1:30:00 HEATER INSTALLER Morphine 2016-08 No 4 mg, Memoria 2-20 Route: l 07:30: IVP, ONCE, David 00 Dosing Weight 104.545, kg, Priority: STAT, Start date: 08/11/17 1:30:00 HEATER INSTALLER, Stop date: 08/11/17 1:30:00 HEATER INSTALLER Ondansetron 2016-08 No 4 mg, Memor ia 2-20 Route: l 07:30: IVP, Drug David 00 form: INJ, ONCE, Dosing Weight 104.545, kg, Priority: STAT, Start date: 08/11/17 1:30:00 HEATER INSTALLER, Stop date: 08/11/17 1:30:00 HEATER INSTALLER Morphine 2017-1 No 4 mg, Memoria 2-20 Route: l 07:30: IVP, ONCE, David 00 Dosing Weight 104.545, kg, Priority: STAT, Start date: 08/11/17 1:30:00 HEATER INSTALLER, Stop date: 08/11/17 1:30:00 HEATER INSTALLER Ondansetron 2017-1 No 4 mg, Memor ia 2-20 Route: l 07:30: IVP, Drug Mcfarlan 00 form: INJ, ONCE, Dosing Weight 104.545, kg, Priority: STAT, Start date: 08/11/17 1:30:00 HEATER INSTALLER, Stop date: 08/11/17 1:30:00 HEATER INSTALLER Morphine 2017-1 No 4 mg, Memoria 2-20 Route: l 07:30: IVP, ONCE, Mcf[place]an 00 Dosing Weight 104.545, kg, Priority: STAT, Start date: 08/11/17 1:30:00 HEATER INSTALLER, Stop date: 08/11/17 1:30:00 HEATER INSTALLER Ondansetron 2017-1 No 4 mg, Memor ia 2-20 Route: l 07:30: IVP, Drug David 00 form: INJ, ONCE, Dosing Weight 104.545, kg, Priority: STAT, Start date: 08/11/17 1:30:00 HEATER INSTALLER, Stop date: 08/11/17 1:30:00 HEATER INSTALLER Morphine 2017-1 No 4 mg, Memoria 2-20 Route: l 07:30: IVP, ONCE, Mc[place]an 00 Dosing Weight 104.545, kg, Priority: STAT, Start date: 08/11/17 1:30:00 HEATER INSTALLER, Stop date: 08/11/17 1:30:00 HEATER INSTALLER Ondansetron 2017-1 No 4 mg, Memor ia 2-20 Route: l 07:30: IVP, Drug David 00 form: INJ, ONCE, Dosing Weight 104.545, kg, Priority: STAT, Start date: 08/11/17 1:30:00 HEATER INSTALLER, Stop date: 08/11/17 1:30:00 HEATER INSTALLER Morphine 2017-1 No 4 mg, Memoria 2-20 Route: l 07:30: IVP, ONCE, Mcf[place]an 00 Dosing Weight 104.545, kg, Priority: STAT, Start date: 08/11/17 1:30:00 HEATER INSTALLER, Stop date: 08/11/17 1:30:00 HEATER INSTALLER Ondansetron 2017-1 No 4 mg, Memor ia 2-20 Route: l 07:30: IVP, Drug David 00 form: INJ, ONCE, Dosing Weight 104.545, kg, Priority: STAT, Start date: 08/11/17 1:30:00 HEATER INSTALLER, Stop date: 08/11/17 1:30:00 HEATER INSTALLER Morphine 2017-1 No 4 mg, Memoria 2-20 Route: l 07:30: IVP, ONCE, David 00 Dosing Weight 104.545, kg, Priority: STAT, Start date: 08/11/17 1:30:00 HEATER INSTALLER, Stop date: 08/11/17 1:30:00 HEATER INSTALLER Ondansetron 2017-1 No 4 mg, Memor ia 2-20 Route: l 07:30: IVP, Drug David 00 form: INJ, ONCE, Dosing Weight 104.545, kg, Priority: STAT, Start date: 08/11/17 1:30:00 HEATER INSTALLER, Stop date: 08/11/17 1:30:00 HEATER INSTALLER Morphine 2017-1 No 4 mg, Memoria 2-20 Route: l 07:30: IVP, ONCE, Mc[place]an 00 Dosing Weight 104.545, kg, Priority: STAT, Start date: 08/11/17 1:30:00 HEATER INSTALLER, Stop date: 08/11/17 1:30:00 HEATER INSTALLER Ondansetron 2017-1 No 4 mg, Memor ia 2-20 Route: l 07:30: IVP, Drug Mcfarlan 00 form: INJ, ONCE, Dosing Weight 104.545, kg, Priority: STAT, Start date: 08/11/17 1:30:00 HEATER INSTALLER, Stop date: 08/11/17 1:30:00 HEATER INSTALLER Morphine 2017-1 No 4 mg, Memoria 2-20 Route: l 07:30: IVP, ONCE, Mcfarlan 00 Dosing Weight 104.545, kg, Priority: STAT, Start date: 08/11/17 1:30:00 HEATER INSTALLER, Stop date: 08/11/17 1:30:00 HEATER INSTALLER Ondansetron 2017-1 No 4 mg, Memor ia 2-20 Route: l 07:30: IVP, Drug Mcfarlan 00 form: INJ, ONCE, Dosing Weight 104.545, kg, Priority: STAT, Start date: 08/11/17 1:30:00 HEATER INSTALLER, Stop date: 08/11/17 1:30:00 HEATER INSTALLER Morphine 2016-08 No 4 mg, Memoria 2-20 Route: l 07:30: IVP, ONCE, Dosing Weight 104.545, kg, Priority: STAT, Start date: 08/11/17 1:30:00 HEATER INSTALLER, Stop date: 08/11/17 1:30:00 HEATER INSTALLER bumetanide 2016-08 Yes 2 mg = 1 Mem oria 2 mg oral 1-03 tab, PO, l tablet 17:58: BID, # 60 Bob n 00 tab, 0 Refill(s) hydrALAZINE 2016-08 Yes 100 mg = 1 Memoria 100 mg oral 1-03 tab, PO, l tablet 17:58: TID, # 90 Bob n 00 tab, 0 Refill(s) carvedilol 2016-08 Yes 12.5 mg = Me moria 12.5 mg 1-03 1 tab, PO, l oral tablet 17:58: Q12H, 0 Her [place] 00 Refill(s) bumetanide 2016-08 Yes 2 mg = 1 Mem oria 2 mg oral 1-03 tab, PO, l tablet 17:58: BID, # 60 Bob n 00 tab, 0 Refill(s) hydrALAZINE 2016-08 Yes 100 mg = 1 Memoria 100 mg oral 1-03 tab, PO, l tablet 17:58: TID, # 90 Bob n 00 tab, 0 Refill(s) carvedilol 2016-08 Yes 12.5 mg = Me moria 12.5 mg 1-03 1 tab, PO, l oral tablet 17:58: Q12H, 0 Her [place] 00 Refill(s) bumetanide 2016-08 Yes 2 mg = 1 Mem oria 2 mg oral 1-03 tab, PO, l tablet 17:58: BID, # 60 Bob n 00 tab, 0 Refill(s) hydrALAZINE 2016-08 Yes 100 mg = 1 Memoria 100 mg oral 1-03 tab, PO, l tablet 17:58: TID, # 90 Bob n 00 tab, 0 Refill(s) carvedilol 2016-08 Yes 12.5 mg = Me moria 12.5 mg 1-03 1 tab, PO, l oral tablet 17:58: Q12H, 0 Her [place] 00 Refill(s) bumetanide 2016-08 Yes 2 mg = 1 Mem [facility] 2 mg oral 1-03 tab, PO, l tablet 17:58: BID, # 60 Bob n 00 tab, 0 Refill(s) hydrALAZINE 2016-08 Yes 100 mg = 1 Memoria 100 mg oral 1-03 tab, PO, l tablet 17:58: TID, # 90 Bob n 00 tab, 0 Refill(s) carvedilol 2016-08 Yes 12.5 mg = Me moria 12.5 mg 1-03 1 tab, PO, l oral tablet 17:58: Q12H, 0 Her [place] 00 Refill(s) bumetanide 2016-08 Yes 2 mg = 1 Mem [facility] 2 mg oral 1-03 tab, PO, l tablet 17:58: BID, # 60 Bob n 00 tab, 0 Refill(s) hydrALAZINE 2016-08 Yes 100 mg = 1 Mem[facility] 100 mg oral 1-03 tab, PO, l tablet 17:58: TID, # 90 Bob n 00 tab, 0 Refill(s) carvedilol 2016-08 Yes 12.5 mg = Me moria 12.5 mg 1-03 1 tab, PO, l oral tablet 17:58: Q12H, 0 Her [place] 00 Refill(s) bumetanide 2016-08 Yes 2 mg = 1 Mem o[facility] 2 mg oral 1-03 tab, PO, l tablet 17:58: BID, # 60 Bob n 00 tab, 0 Refill(s) hydrALAZINE 2016-08 Yes 100 mg = 1 Memoria 100 mg oral 1-03 tab, PO, l tablet 17:58: TID, # 90 Bob n 00 tab, 0 Refill(s) carvedilol 2016-08 Yes 12.5 mg = Me moria 12.5 mg 1-03 1 tab, PO, l oral tablet 17:58: Q12H, 0 Her [place] 00 Refill(s) bumetanide 2016-08 Yes 2 mg = 1 Mem [facility] 2 mg oral 1-03 tab, PO, l tablet 17:58: BID, # 60 Bob n 00 tab, 0 Refill(s) hydrALAZINE 2016-08 Yes 100 mg = 1 Mem[facility] 100 mg oral 1-03 tab, PO, l tablet 17:58: TID, # 90 Bob n 00 tab, 0 Refill(s) carvedilol 2016-08 Yes 12.5 mg = Me moria 12.5 mg -03 1 tab, PO, l oral tablet 17:58: Q12H, 0 Her [place] 00 Refill(s) bumetanide 2016-08 Yes 2 mg = 1 Mem [facility] 2 mg oral -03 tab, PO, l tablet 17:58: BID, # 60 Bob n 00 tab, 0 Refill(s) hydrALAZINE 2016-08 Yes 100 mg = 1 Mem[facility] 100 mg oral -03 tab, PO, l tablet 17:58: TID, # 90 Bob n 00 tab, 0 Refill(s) carvedilol 2016-08 Yes 12.5 mg = Me moria 12.5 mg -03 1 tab, PO, l oral tablet 17:58: Q12H, 0 Her [place] 00 Refill(s) bumetanide 2016-08 Yes 2 mg = 1 Mem [facility] 2 mg oral -03 tab, PO, l tablet 17:58: BID, # 60 Bob n 00 tab, 0 Refill(s) hydrALAZINE 2016-08 Yes 100 mg = 1 Memoria 100 mg oral -03 tab, PO, l tablet 17:58: TID, # 90 Bob n 00 tab, 0 Refill(s) carvedilol 2016-08 Yes 12.5 mg = Me moria 12.5 mg -03 1 tab, PO, l oral tablet 17:58: Q12H, 0 Her [place] 00 Refill(s) Bumex 2016-08 No Notes: Memoria - (Same As: l 17:39: Bumex) Bumex 2016-08 No Notes: Memoria 08-25 (Same As: l 17:39: Bumex) Bumex 2016-08 No Notes: Memoria 08-25 (Same As: l 17:39: Bumex) Bumex 2016-08 No Notes: Memoria 1-03 (Same As: l 17:39: Bumex) David 00 Bumex 2016-08 No Notes: Memoria 1-03 (Same As: l 17:39: Bumex) [place] 00 Bumex 2016-08 No Notes: Memoria 1-03 (Same As: l 17:39: Bumex) Bumex 2016-08 No Notes: Memoria 1-03 (Same As: l 17:39: Bumex) David 00 Bumex 2016-08 No Notes: Memoria 1-03 (Same As: l 17:39: Bumex) Bumex 2016-08 No Notes: Memoria 1-03 (Same As: l 17:39: Bumex) Bumex 2016-08 No Notes: Memoria 1-03 (Same As: l 17:38: Bumex) Bumex 2016-08 No Notes: Memoria 1-03 (Same As: l 17:38: Bumex) Bumex 2016-08 No Notes: Memoria 1-03 (Same As: l 17:38: Bumex) Bumex 2016-08 No Notes: Memoria 1-03 (Same As: l 17:38: Bumex) Bumex 2016-08 No Notes: Memoria 1-03 (Same As: l 17:38: Bumex) Bumex 2016-08 No Notes: Memoria 1-03 (Same As: l 17:38: Bumex) Bumex 2016-08 No Notes: Memoria 1-03 (Same As: l 17:38: Bumex) David 00 Bumex 2016-08 No Notes: Memoria 1-03 (Same As: l 17:38: Bumex) [place] 00 Bumex 2016-08 No Notes: Memoria 1-03 (Same As: l 17:38: Bumex) Plavix 2016-08 No Notes: Memoria 1-03 (Same As: l 14:00: Plavix) aspirin 81 2016-08 No Notes: Do Me moria mg tablet, 1 not crush l enteric 14:00: or chew. Bob n coated 00 (Same As: Ecotrin) hydrALAZINE 2016-08 No Notes: Connor beto 1-03 (Same as: l 14:00: Apresoline David 00 ) May interfere w/enteral feedings Take With Food Plavix 2016-08 No Notes: Memoria 1-03 (Same As: l 14:00: Plavix) aspirin 81 2016-08 No Notes: Do Me moria mg tablet, 1-03 not crush l enteric 14:00: or chew. Bob n coated 00 (Same As: Ecotrin) hydrALAZINE 2016-08 No Notes: Connor beto 1-03 (Same as: l 14:00: Apresoline [place] 00 ) May interfere w/enteral feedings Take With Food Plavix 2016-08 No Notes: Memoria 1-03 (Same As: l 14:00: Plavix) aspirin 81 2016-08 No Notes: Do Me moria mg tablet, 1-03 not crush l enteric 14:00: or chew. Bob n coated (Same As: Ecotrin) hydrALAZINE 2016-08 No Notes: Connor beto 1-03 (Same as: l 14:00: Apresoline [place] 00 ) May interfere w/enteral feedings Take With Food Plavix 2016-08 No Notes: Memoria 1-03 (Same As: l 14:00: Plavix) aspirin 81 2016-08 No Notes: Do Me moria mg tablet, 1-03 not crush l enteric 14:00: or chew. Bob n coated 00 (Same As: Ecotrin) hydrALAZINE 2016-08 No Notes: Connor beto 1-03 (Same as: l 14:00: Apresoline [place] ) May interfere w/enteral feedings Take With Food Plavix 2016-08 No Notes: Memoria 1-03 (Same As: l 14:00: Plavix) [place] 00 aspirin 81 2016-08 No Notes: Do Me moria mg tablet, 1-03 not crush l enteric 14:00: or chew. Bob n coated 00 (Same As: Ecotrin) hydrALAZINE 2016-08 No Notes: Connor beto 1-03 (Same as: l 14:00: Apresoline [place] 00 ) May interfere w/enteral feedings Take With Food Plavix 2016-08 No Notes: Memoria 1-03 (Same As: l 14:00: Plavix) [place] 00 aspirin 81 2016-08 No Notes: Do Me moria mg tablet, 1-03 not crush l enteric 14:00: or chew. Bob n coated 00 (Same As: Ecotrin) hydrALAZINE 2016-08 No Notes: Connor beto 1-03 (Same as: l 14:00: Apresoline David 00 ) May interfere w/enteral feedings Take With Food Plavix 2016-08 No Notes: Memoria 1-03 (Same As: l 14:00: Plavix) David 00 aspirin 81 2016-08 No Notes: Do Me moria mg tablet, 1-03 not crush l enteric 14:00: or chew. Bob n coated 00 (Same As: Ecotrin) hydrALAZINE 2016-08 No Notes: Connor beto 1-03 (Same as: l 14:00: Apresoline [place] ) May interfere w/enteral feedings Take With Food Plavix 2016-08 No Notes: Memoria 1-03 (Same As: l 14:00: Plavix) David 00 aspirin 81 2016-08 No Notes: Do Me moria mg tablet, 1-03 not crush l enteric 14:00: or chew. Bob n coated 00 (Same As: Ecotrin) hydrALAZINE 2016-08 No Notes: Connor beto 1-03 (Same as: l 14:00: Apresoline [place] 00 ) May interfere w/enteral feedings Take With Food Plavix 2016-08 No Notes: Memoria 1-03 (Same As: l 14:00: Plavix) David 00 aspirin 81 2016-08 No Notes: Do Me moria mg tablet, 1-03 not crush l enteric 14:00: or chew. Bob n coated 00 (Same As: Ecotrin) hydrALAZINE 2016-08 No Notes: Connor beto 1-03 (Same as: l 14:00: Apresoline [place] 00 ) May interfere w/enteral feedings Take With Food hydrALAZINE 2016-08 No Notes: Connor beto 1-03 (Same as: l 06:38: Apresoline David ) Push over 5 minutes hydrALAZINE 2016-08 No Notes: Connor beto 1-03 (Same as: l 06:38: Apresoline David 00 ) Push over 5 minutes hydrALAZINE 2016-08 No Notes: Connor beto 1-03 (Same as: l 06:38: Apresoline David 00 ) Push over 5 minutes hydrALAZINE 2016-08 No Notes: Connor beto 1-03 (Same as: l 06:38: Apresoline [place] 00 ) Push over 5 minutes hydrALAZINE 2016-08 No Notes: Connor beto 1-03 (Same as: l 06:38: Apresoline [place] 00 ) Push over 5 minutes hydrALAZINE 2016-08 No Notes: Connor beto 1-03 (Same as: l 06:38: Apresoline [place] 00 ) Push over 5 minutes hydrALAZINE 2016-08 No Notes: Connor beto 1-03 (Same as: l 06:38: Apresoline David 00 ) Push over 5 minutes hydrALAZINE 2016-08 No Notes: Connor beto 1-03 (Same as: l 06:38: Apresoline David 00 ) Push over 5 minutes hydrALAZINE 2016-08 No Notes: Connor beto 1-03 (Same as: l 06:38: Apresoline David 00 ) Push over 5 minutes pravastatin 2016-08 No Notes: Connor beto 1-03 (Same as: l 02:00: Pravachol) [place] 00 pravastatin 2016-08 No Notes: Connor beto 1-03 (Same as: l 02:00: Pravachol) David 00 pravastatin 2016-08 No Notes: Connor beto 1-03 (Same as: l 02:00: Pravachol) [place] 00 pravastatin 2016-08 No Notes: Connor bteo 1-03 (Same as: l 02:00: Pravachol) [place] 00 pravastatin 2016-08 No Notes: Connor beto 1-03 (Same as: l 02:00: Pravachol) David 00 pravastatin 2016-08 No Notes: Connor beto 1-03 (Same as: l 02:00: Pravachol) [place] 00 pravastatin 2016-08 No Notes: Connor beto 1-03 (Same as: l 02:00: Pravachol) [place] 00 pravastatin 2016-08 No Notes: Connor beto 1-03 (Same as: l 02:00: Pravachol) pravastatin 2016-08 No Notes: Connor beto 08-25 (Same as: l 02:00: Pravachol) losartan 2016-08 Yes 25 mg = 1 M emoria mg oral 1-02 tab, PO, l tablet 15:53: Daily, # David 00 30 tab, 0 Refill(s) furosemide 2016-08 No 40 mg = 1 Me moria 40 mg oral 1-02 tab, PO, l tablet 15:53: BID, # 30 Bob n 00 tab, 0 Refill(s) losartan 2016-08 Yes 25 mg = 1 M emoria mg oral -02 tab, PO, l tablet 15:53: Daily, # [place] 00 30 tab, 0 Refill(s) furosemide 2016-08 No 40 mg = 1 Me moria 40 mg oral -02 tab, PO, l tablet 15:53: BID, # 30 Bob n 00 tab, 0 Refill(s) losartan 2016-08 Yes 25 mg = 1 M emoria mg oral 1-02 tab, PO, l tablet 15:53: Daily, # [place] 00 30 tab, 0 Refill(s) furosemide 2016-08 No 40 mg = 1 Me moria 40 mg oral 1-02 tab, PO, l tablet 15:53: BID, # 30 Bob n 00 tab, 0 Refill(s) losartan 2016-08 Yes 25 mg = 1 M emoria mg oral -02 tab, PO, l tablet 15:53: Daily, # David 00 30 tab, 0 Refill(s) furosemide 2016-08 No 40 mg = 1 Me moria 40 mg oral -02 tab, PO, l tablet 15:53: BID, # 30 Bob n 00 tab, 0 Refill(s) losartan 2016-08 Yes 25 mg = 1 M emoria mg oral 1-02 tab, PO, l tablet 15:53: Daily, # [place] 00 30 tab, 0 Refill(s) furosemide 2016-08 No 40 mg = 1 Me moria 40 mg oral 1-02 tab, PO, l tablet 15:53: BID, # 30 Bob n 00 tab, 0 Refill(s) losartan 2016-08 Yes 25 mg = 1 M emoria mg oral 1-02 tab, PO, l tablet 15:53: Daily, # David 00 30 tab, 0 Refill(s) furosemide 2016-08 No 40 mg = 1 Me moria 40 mg oral 1-02 tab, PO, l tablet 15:53: BID, # 30 Bob n 00 tab, 0 Refill(s) losartan 2016-08 Yes 25 mg = 1 M emoria mg oral 1-02 tab, PO, l tablet 15:53: Daily, # [place] 00 30 tab, 0 Refill(s) furosemide 2016-08 No 40 mg = 1 Me moria 40 mg oral 1-02 tab, PO, l tablet 15:53: BID, # 30 Bob n 00 tab, 0 Refill(s) losartan 2016-08 Yes 25 mg = 1 M emoria mg oral 1-02 tab, PO, l tablet 15:53: Daily, # [place] 00 30 tab, 0 Refill(s) furosemide 2016-08 No 40 mg = 1 Me moria 40 mg oral 1-02 tab, PO, l tablet 15:53: BID, # 30 Bob n 00 tab, 0 Refill(s) losartan 2016-08 Yes 25 mg = 1 M emoria mg oral 1-02 tab, PO, l tablet 15:53: Daily, # [place] 00 30 tab, 0 Refill(s) furosemide 2016-08 No 40 mg = 1 Me moria 40 mg oral 1-02 tab, PO, l tablet 15:53: BID, # 30 Bob n 00 tab, 0 Refill(s) insulin 2016-08 No Notes: Memoria lispro 08-24 Roll in l 15:31: palms of hands gently; Do not shake `vigorousl y. (Same as: Humalog ) "Single Patient Use Only " WASTE: F/P - Black; E - Municipal Trash Bin Stable for 28 days at room temperatur e. Expires in days from ____Date glucagon 2016-08 No 1 mg, Memoria 08-24 Route: IM, l 15:31: Drug form: PDR/INJ, PRN, Dosing Weight 104.545, kg, PRN Blood Glucose Results, Start date: 06/24/17 10:31:00 CDT, Duration: 30 day, Stop date: 07/24/17 9:30:00 HEATER INSTALLER Dextrose 2016-08 No 12.5 gm, Memor ia 50% Syringe 1-02 25 mL, l 15:31: Route: [place] 00 IVP, Drug Form: INJ, Dosing Weight 104.545, kg, PRN, PRN Blood Glucose Results, Start date: 06/24/17 10:31:00 CDT, Duration: 30 day, Stop date: 07/24/17 9:30:00 HEATER INSTALLER insulin 2016-08 No Notes: Memoria lispro 1-02 Roll in l 15:31: palms of [place] 00 hands gently; Do not shake `vigorousl y. (Same as: Humalog ) "Single Patient Use Only " WASTE: F/P - Black; E - Municipal Trash Bin Stable for 28 days at room temperatur e. Expires in days from ____Date glucagon 2016-08 No 1 mg, Memoria 1-02 Route: IM, l 15:31: Drug form: David 00 PDR/INJ, PRN, Dosing Weight 104.545, kg, PRN Blood Glucose Results, Start date: 06/24/17 10:31:00 CDT, Duration: 30 day, Stop date: 07/24/17 9:30:00 HEATER INSTALLER Dextrose 2016-08 No 12.5 gm, Memor ia 50% Syringe 1-02 25 mL, l 15:31: Route: [place] 00 IVP, Drug Form: INJ, Dosing Weight 104.545, kg, PRN, PRN Blood Glucose Results, Start date: 06/24/17 10:31:00 CDT, Duration: 30 day, Stop date: 07/24/17 9:30:00 HEATER INSTALLER insulin 2016-08 No Notes: Memoria lispro 1-02 Roll in l 15:31: palms of David 00 hands gently; Do not shake `vigorousl y. (Same as: Humalog ) "Single Patient Use Only " WASTE: F/P - Black; E - Municipal Trash Bin Stable for 28 days at room temperatur e. Expires in days from ____Date glucagon 2016-08 No 1 mg, Memoria 08-24 Route: IM, l 15:31: Drug form: [place] 00 PDR/INJ, PRN, Dosing Weight 104.545, kg, PRN Blood Glucose Results, Start date: 06/24/17 10:31:00 CDT, Duration: 30 day, Stop date: 07/24/17 9:30:00 HEATER INSTALLER Dextrose 2016-08 No 12.5 gm, Memor ia 50% Syringe 1-02 25 mL, l 15:31: Route: [place] 00 IVP, Drug Form: INJ, Dosing Weight 104.545, kg, PRN, PRN Blood Glucose Results, Start date: 06/24/17 10:31:00 CDT, Duration: 30 day, Stop date: 07/24/17 9:30:00 HEATER INSTALLER insulin 2016-08 No Notes: Memoria lispro 1-02 Roll in l 15:31: palms of [place] 00 hands gently; Do not shake `vigorousl y. (Same as: Humalog ) "Single Patient Use Only " WASTE: F/P - Black; E - [employer] Trash Bin Stable for 28 days at room temperatur e. Expires in days from ____Date glucagon 2016-08 No 1 mg, Memoria 08-24 Route: IM, l 15:31: Drug form: [place] 00 PDR/INJ, PRN, Dosing Weight 104.545, kg, PRN Blood Glucose Results, Start date: 06/24/17 10:31:00 CDT, Duration: 30 day, Stop date: 07/24/17 9:30:00 HEATER INSTALLER Dextrose 2016-08 No 12.5 gm, Memor ia 50% Syringe 1-02 25 mL, l 15:31: Route: David 00 IVP, Drug Form: INJ, Dosing Weight 104.545, kg, PRN, PRN Blood Glucose Results, Start date: 06/24/17 10:31:00 CDT, Duration: 30 day, Stop date: 07/24/17 9:30:00 HEATER INSTALLER insulin 2016-08 No Notes: Memoria lispro 1-02 Roll in l 15:31: palms of David 00 hands gently; Do not shake `vigorousl y. (Same as: Humalog ) "Single Patient Use Only " WASTE: F/P - Black; E - Municipal Trash Bin Stable for 28 days at room temperatur e. Expires in days from ____Date glucagon 2016-08 No 1 mg, Memoria 08-24 Route: IM, l 15:31: Drug form: [place] 00 PDR/INJ, PRN, Dosing Weight 104.545, kg, PRN Blood Glucose Results, Start date: 06/24/17 10:31:00 CDT, Duration: 30 day, Stop date: 07/24/17 9:30:00 HEATER INSTALLER Dextrose 2016-08 No 12.5 gm, Memor ia 50% Syringe 08-24 25 mL, l 15:31: Route: [place] 00 IVP, Drug Form: INJ, Dosing Weight 104.545, kg, PRN, PRN Blood Glucose Results, Start date: 06/24/17 10:31:00 CDT, Duration: 30 day, Stop date: 07/24/17 9:30:00 HEATER INSTALLER insulin 2016-08 No Notes: Memoria lispro 08-24 Roll in l 15:31: palms of [place] 00 hands gently; Do not shake `vigorousl y. (Same as: Humalog ) "Single Patient Use Only " WASTE: F/P - Black; E - Municipal Trash Bin Stable for 28 days at room temperatur e. Expires in days from ____Date glucagon 2016-08 No 1 mg, Memoria 08-24 Route: IM, l 15:31: Drug form: [place] 00 PDR/INJ, PRN, Dosing Weight 104.545, kg, PRN Blood Glucose Results, Start date: 06/24/17 10:31:00 CDT, Duration: 30 day, Stop date: 07/24/17 9:30:00 HEATER INSTALLER Dextrose 2016-08 No 12.5 gm, Memor ia 50% Syringe 08-24 25 mL, l 15:31: Route: David 00 IVP, Drug Form: INJ, Dosing Weight 104.545, kg, PRN, PRN Blood Glucose Results, Start date: 06/24/17 10:31:00 CDT, Duration: 30 day, Stop date: 07/24/17 9:30:00 HEATER INSTALLER insulin 2016-08 No Notes: Memoria lispro 1-02 Roll in l 15:31: palms of David 00 hands gently; Do not shake `vigorousl y. (Same as: Humalog ) "Single Patient Use Only " WASTE: F/P - Black; E - Municipal Trash Bin Stable for 28 days at room temperatur e. Expires in days from ____Date glucagon 2016-08 No 1 mg, Memoria 08-24 Route: IM, l 15:31: Drug form: David 00 PDR/INJ, PRN, Dosing Weight 104.545, kg, PRN Blood Glucose Results, Start date: 06/24/17 10:31:00 CDT, Duration: 30 day, Stop date: 07/24/17 9:30:00 HEATER INSTALLER Dextrose 2016-08 No 12.5 gm, Memor ia 50% Syringe 1-02 25 mL, l 15:31: Route: [place] 00 IVP, Drug Form: INJ, Dosing Weight 104.545, kg, PRN, PRN Blood Glucose Results, Start date: 06/24/17 10:31:00 CDT, Duration: 30 day, Stop date: 07/24/17 9:30:00 HEATER INSTALLER insulin 2016-08 No Notes: Memoria lispro 1-02 Roll in l 15:31: palms of David 00 hands gently; Do not shake `vigorousl y. (Same as: Humalog ) "Single Patient Use Only " WASTE: F/P - Black; E - Municipal Trash Bin Stable for 28 days at room temperatur e. Expires in days from ____Date glucagon 2016-08 No 1 mg, Memoria 08-24 Route: IM, l 15:31: Drug form: [place] 00 PDR/INJ, PRN, Dosing Weight 104.545, kg, PRN Blood Glucose Results, Start date: 06/24/17 10:31:00 CDT, Duration: 30 day, Stop date: 07/24/17 9:30:00 HEATER INSTALLER Dextrose 2016-08 No 12.5 gm, Memor ia 50% Syringe 1-02 25 mL, l 15:31: Route: David 00 IVP, Drug Form: INJ, Dosing Weight 104.545, kg, PRN, PRN Blood Glucose Results, Start date: 06/24/17 10:31:00 CDT, Duration: 30 day, Stop date: 07/24/17 9:30:00 HEATER INSTALLER insulin 2016-08 No Notes: Memoria lispro - Roll in l 15:31: palms of [place] 00 hands gently; Do not shake `vigorousl y. (Same as: Humalog ) "Single Patient Use Only " WASTE: F/P - Black; E - Municipal Trash Bin Stable for 28 days at room temperatur e. Expires in days from ____Date glucagon 2016-08 No 1 mg, Memoria 08-24 Route: IM, l 15:31: Drug form: David 00 PDR/INJ, PRN, Dosing Weight 104.545, kg, PRN Blood Glucose Results, Start date: 06/24/17 10:31:00 CDT, Duration: 30 day, Stop date: 07/24/17 9:30:00 HEATER INSTALLER Dextrose 2016-08 No 12.5 gm, Memor ia 50% Syringe 1-02 25 mL, l 15:31: Route: David 00 IVP, Drug Form: INJ, Dosing Weight 104.545, kg, PRN, PRN Blood Glucose Results, Start date: 06/24/17 10:31:00 CDT, Duration: 30 day, Stop date: 07/24/17 9:30:00 HEATER INSTALLER Coreg 2016-08 No Notes: Memoria 1-02 Give with l 15:28: food. David 00 (Same As: Coreg) Coreg 2016-08 No Notes: Memoria 1-02 Give with l 15:28: food. [place] 00 (Same As: Coreg) Coreg 2016-08 No Notes: Memoria 1-02 Give with l 15:28: food. David 00 (Same As: Coreg) Coreg 2016-08 No Notes: Memoria 1-02 Give with l 15:28: food. [place] 00 (Same As: Coreg) Coreg 2016-08 No Notes: Memoria 1-02 Give with l 15:28: food. David 00 (Same As: Coreg) Coreg 2016-08 No Notes: Memoria 1-02 Give with l 15:28: food. [place] (Same As: Coreg) Coreg 2016-08 No Notes: Memoria 1-02 Give with l 15:28: food. David (Same As: Coreg) Coreg 2016-08 No Notes: Memoria 1-02 Give with l 15:28: food. [place] 00 (Same As: Coreg) Coreg 2016-08 No Notes: Memoria 1-02 Give with l 15:28: food. [place] (Same As: Coreg) hydrALAZINE 2016-08 No Notes: Connor beto 50 mg oral 1-02 (Same as: l tablet 15:27: Apresoline Nay nn 00 ) May interfere w/enteral feedings Take With Food hydrALAZINE 2016-08 No Notes: Connor beto 50 mg oral 1-02 (Same as: l tablet 15:27: Apresoline Nay nn 00 ) May interfere w/enteral feedings Take With Food amLODIPine 2016-08 No Notes: Memor ia 1-02 (Same as: l 15:27: Norvasc) [place] 00 amLODIPine 2016-08 No Notes: Memor ia 1-02 (Same as: l 15:27: Norvasc) [place] 00 hydrALAZINE 2016-08 No Notes: Connor beto 50 mg oral 1-02 (Same as: l tablet 15:27: Apresoline Nay nn 00 ) May interfere w/enteral feedings Take With Food amLODIPine 2016-08 No Notes: Memor ia 1-02 (Same as: l 15:27: Norvasc) David 00 hydrALAZINE 2016-08 No Notes: Connor beto 50 mg oral 1-02 (Same as: l tablet 15:27: Apresoline Nay nn 00 ) May interfere w/enteral feedings Take With Food amLODIPine 2016-08 No Notes: Memor ia 1-02 (Same as: l 15:27: Norvasc) [place] 00 hydrALAZINE 2016-08 No Notes: Connor beto 50 mg oral 1-02 (Same as: l tablet 15:27: Apresoline Nay nn 00 ) May interfere w/enteral feedings Take With Food amLODIPine 2016-08 No Notes: Memor ia 1-02 (Same as: l 15:27: Norvasc) hydrALAZINE 2016-08 No Notes: Connor beto 50 mg oral 1-02 (Same as: l tablet 15:27: Apresoline Nay nn 00 ) May interfere w/enteral feedings Take With Food amLODIPine 2016-08 No Notes: Memor ia 1-02 (Same as: l 15:27: Norvasc) hydrALAZINE 2016-08 No Notes: Connor beto 50 mg oral 1-02 (Same as: l tablet 15:27: Apresoline Nay nn 00 ) May interfere w/enteral feedings Take With Food amLODIPine 2016-08 No Notes: Memor ia 1-02 (Same as: l 15:27: Norvasc) hydrALAZINE 2016-08 No Notes: Connor beto 50 mg oral 1-02 (Same as: l tablet 15:27: Apresoline Nay nn 00 ) May interfere w/enteral feedings Take With Food amLODIPine 2016-08 No Notes: Memor ia 1-02 (Same as: l 15:27: Norvasc) hydrALAZINE 2016-08 No Notes: Connor beto 50 mg oral 1-02 (Same as: l tablet 15:27: Apresoline Nay nn 00 ) May interfere w/enteral feedings Take With Food amLODIPine 2016-08 No Notes: Memor ia 1-02 (Same as: l 15:27: Norvasc) losartan 2016-08 No Notes: Memoria 1-02 (Same as: l 15:26: Cozaar) losartan 2016-08 No Notes: Memoria 1-02 (Same as: l 15:26: Cozaar) losartan 2016-08 No Notes: Memoria 1-02 (Same as: l 15:26: Cozaar) losartan 2016-08 No Notes: Memoria 1-02 (Same as: l 15:26: Cozaar) losartan 2016-08 No Notes: Memoria 1-02 (Same as: l 15:26: Cozaar) losartan 2016-08 No Notes: Memoria 1-02 (Same as: l 15:26: Cozaar) losartan 2016-08 No Notes: Memoria 1-02 (Same as: l 15:26: Cozaar) David losartan 2016-08 No Notes: Memoria 08-24 (Same as: l 15:26: Cozaar) [place] losartan 2016-08 No Notes: Memoria 08-24 (Same as: l 15:26: Cozaar) David 00 Lasix 2016-08 No 40 mg, Memoria 08-24 Route: l 13:39: IVP, Drug [place] 00 form: INJ, ONCE, Dosing Weight 104.091, kg, Priority: STAT, Start date: 06/24/17 8:39:00 CDT, Stop date: 06/24/17 8:39:00 CDT Lasix 2016-08 No 40 mg, Memoria 08-24 Route: l 13:39: IVP, Drug [place] 00 form: INJ, ONCE, Dosing Weight 104.091, kg, Priority: STAT, Start date: 06/24/17 8:39:00 CDT, Stop date: 06/24/17 8:39:00 CDT Lasix 2016-08 No 40 mg, Memoria 08-24 Route: l 13:39: IVP, Drug David 00 form: INJ, ONCE, Dosing Weight 104.091, kg, Priority: STAT, Start date: 06/24/17 8:39:00 CDT, Stop date: 06/24/17 8:39:00 CDT Lasix 2016-08 No 40 mg, Memoria 08-24 Route: l 13:39: IVP, Drug [place] 00 form: INJ, ONCE, Dosing Weight 104.091, kg, Priority: STAT, Start date: 06/24/17 8:39:00 CDT, Stop date: 06/24/17 8:39:00 CDT Lasix 2016-08 No 40 mg, Memoria 08-24 Route: l 13:39: IVP, Drug [place] 00 form: INJ, ONCE, Dosing Weight 104.091, kg, Priority: STAT, Start date: 06/24/17 8:39:00 CDT, Stop date: 06/24/17 8:39:00 CDT Lasix 2016-08 No 40 mg, Memoria 08-24 Route: l 13:39: IVP, Drug [place] 00 form: INJ, ONCE, Dosing Weight 104.091, kg, Priority: STAT, Start date: 06/24/17 8:39:00 CDT, Stop date: 06/24/17 8:39:00 CDT Lasix 2016-08 No 40 mg, Memoria 08-24 Route: l 13:39: IVP, Drug David 00 form: INJ, ONCE, Dosing Weight 104.091, kg, Priority: STAT, Start date: 06/24/17 8:39:00 CDT, Stop date: 06/24/17 8:39:00 CDT Lasix 2016-08 No 40 mg, Memoria 08-24 Route: l 13:39: IVP, Drug [place] 00 form: INJ, ONCE, Dosing Weight 104.091, kg, Priority: STAT, Start date: 06/24/17 8:39:00 CDT, Stop date: 06/24/17 8:39:00 CDT Lasix 2016-08 No 40 mg, Memoria 08-24 Route: l 13:39: IVP, Drug David 00 form: INJ, ONCE, Dosing Weight 104.091, kg, Priority: STAT, Start date: 06/24/17 8:39:00 CDT, Stop date: 06/24/17 8:39:00 CDT bumetanide 2016-08 No Notes: Memor ia 10 mg + 1-02 (Same As: l sodium 13:35: Bumex) [place] chloride 00 0.9% INJ 60 mL bumetanide 2016-08 No Notes: Memor ia 10 mg + 1-02 (Same As: l sodium 13:35: Bumex) [place] chloride 00 0.9% INJ 60 mL bumetanide 2016-08 No Notes: Memor ia 10 mg + 1-02 (Same As: l sodium 13:35: Bumex) David chloride 00 0.9% INJ 60 mL bumetanide 2016-08 No Notes: Memor ia 10 mg + 1-02 (Same As: l sodium 13:35: Bumex) [place] chloride 00 0.9% INJ 60 mL bumetanide 2016-08 No Notes: Memor ia 10 mg + 1-02 (Same As: l sodium 13:35: Bumex) [place] chloride 00 0.9% INJ 60 mL bumetanide 2016-08 No Notes: Memor ia 10 mg + 1-02 (Same As: l sodium 13:35: Bumex) David chloride 00 0.9% INJ 60 mL bumetanide 2016-08 No Notes: Memor ia 10 mg + 1-02 (Same As: l sodium 13:35: Bumex) [place] chloride 00 0.9% INJ 60 mL bumetanide 2016-08 No Notes: Memor ia 10 mg + 1-02 (Same As: l sodium 13:35: Bumex) [place] chloride 00 0.9% INJ 60 mL bumetanide 2016-08 No Notes: Memor ia 10 mg + 1-02 (Same As: l sodium 13:35: Bumex) [place] chloride 00 0.9% INJ 60 mL Lasix 2016-08 No 40 mg, [facility]oria 08-24 Route: l 13:10: IVP, Drug Mcfarlan 00 form: INJ, ONCE, Dosing Weight 104.091, kg, Priority: STAT, Start date: 06/24/17 8:10:00 CDT, Stop date: 06/24/17 8:10:00 CDT Lasix 2016-08 No 40 mg, [facility] 08-24 Route: l 13:10: IVP, Drug Mcfarlan 00 form: INJ, ONCE, Dosing Weight 104.091, kg, Priority: STAT, Start date: 06/24/17 8:10:00 CDT, Stop date: 06/24/17 8:10:00 CDT Lasix 2016-08 No 40 mg, [facility] 08-24 Route: l 13:10: IVP, Drug Mcfarlan 00 form: INJ, ONCE, Dosing Weight 104.091, kg, Priority: STAT, Start date: 06/24/17 8:10:00 CDT, Stop date: 06/24/17 8:10:00 CDT Lasix 2016-08 No 40 mg, [facility] 08-24 Route: l 13:10: IVP, Drug Mcfarlan 00 form: INJ, ONCE, Dosing Weight 104.091, kg, Priority: STAT, Start date: 06/24/17 8:10:00 CDT, Stop date: 06/24/17 8:10:00 CDT Lasix 2016-08 No 40 mg, [facility] 08-24 Route: l 13:10: IVP, Drug David 00 form: INJ, ONCE, Dosing Weight 104.091, kg, Priority: STAT, Start date: 06/24/17 8:10:00 CDT, Stop date: 06/24/17 8:10:00 CDT Lasix 2016-08 No 40 mg, [facility] 08-24 Route: l 13:10: IVP, Drug David 00 form: INJ, ONCE, Dosing Weight 104.091, kg, Priority: STAT, Start date: 06/24/17 8:10:00 CDT, Stop date: 06/24/17 8:10:00 CDT Lasix 2016-08 No 40 mg, [facility] 08-24 Route: l 13:10: IVP, Drug Mcfarlan 00 form: INJ, ONCE, Dosing Weight 104.091, kg, Priority: STAT, Start date: 06/24/17 8:10:00 CDT, Stop date: 06/24/17 8:10:00 CDT Lasix 2016-08 No 40 mg, [facility] 08-24 Route: l 13:10: IVP, Drug David 00 form: INJ, ONCE, Dosing Weight 104.091, kg, Priority: STAT, Start date: 06/24/17 8:10:00 CDT, Stop date: 06/24/17 8:10:00 CDT Lasix 2016-08 No 40 mg, [facility] 08-24 Route: l 13:10: IVP, Drug Mcfarlan 00 form: INJ, ONCE, Dosing Weight 104.091, kg, Priority: STAT, Start date: 06/24/17 8:10:00 CDT, Stop date: 06/24/17 8:10:00 CDT Saline 2016-08 No Notes: [facility] Flush 0.9% 1-02 (Same as: l 12:23: BD Mcfarlan 00 Posiflush) Saline 2016-08 No Notes: [facility] Flush 0.9% 1-02 (Same as: l 12:23: BD David 00 Posiflush) Saline 2016-08 No Notes: [facility] Flush 0.9% 1-02 (Same as: l 12:23: BD David 00 Posiflush) Saline 2016-08 No Notes: [facility] Flush 0.9% 1-02 (Same as: l 12:23: BD Mcfarlan 00 Posiflush) Saline 2016-08 No Notes: Memoria Flush 0.9% 1-02 (Same as: l 12:23: BD David 00 Posiflush) Saline 2016-08 No Notes: Memoria Flush 0.9% 1-02 (Same as: l 12:23: BD Mcfarlan 00 Posiflush) Saline 2016-08 No Notes: Memoria Flush 0.9% 1-02 (Same as: l 12:23: BD David 00 Posiflush) Saline 2016-08 No Notes: Memoria Flush 0.9% 1-02 (Same as: l 12:23: BD David 00 Posiflush) Saline 2016-08 No Notes: Memoria Flush 0.9% 1-02 (Same as: l 12:23: BD David 00 Posiflush) Acetaminoph 2016-08 No 1 - 2 tab, Memoria en 300 MG / 0-19 PO, Q4H, l Codeine 21:31: PRN Pain, Nay nn Phosphate 00 X 2 day, # 30 MG Oral 20 tab, 0 Tablet Refill(s) [Tylenol with Codeine #3] Acetaminoph 2016-08 No 1 - 2 tab, Memoria en 300 MG / 0-19 PO, Q4H, l Codeine 21:31: PRN Pain, Nay nn Phosphate 00 X 2 day, # 30 MG Oral 20 tab, 0 Tablet Refill(s) [Tylenol with Codeine #3] Acetaminoph 2016-08 No 1 - 2 tab, Memoria en 300 MG / 0-19 PO, Q4H, l Codeine 21:31: PRN Pain, Nay nn Phosphate 00 X 2 day, # 30 MG Oral 20 tab, 0 Tablet Refill(s) [Tylenol with Codeine #3] Acetaminoph 2016-08 No 1 - 2 tab, Memoria en 300 MG / 0-19 PO, Q4H, l Codeine 21:31: PRN Pain, Nay nn Phosphate 00 X 2 day, # 30 MG Oral 20 tab, 0 Tablet Refill(s) [Tylenol with Codeine #3] Acetaminoph 2016-08 No 1 - 2 tab, Memoria en 300 MG / 0-19 PO, Q4H, l Codeine 21:31: PRN Pain, Nay nn Phosphate 00 X 2 day, # 30 MG Oral 20 tab, 0 Tablet Refill(s) [Tylenol with Codeine #3] Acetaminoph 2016-08 No 1 - 2 tab, Memoria en 300 MG / 0-19 PO, Q4H, l Codeine 21:31: PRN Pain, Nay nn Phosphate 00 X 2 day, # 30 MG Oral 20 tab, 0 Tablet Refill(s) [Tylenol with Codeine #3] Acetaminoph 2016-08 No 1 - 2 tab, Memoria en 300 MG / 0-19 PO, Q4H, l Codeine 21:31: PRN Pain, Nay nn Phosphate 00 X 2 day, # 30 MG Oral 20 tab, 0 Tablet Refill(s) [Tylenol with Codeine #3] Acetaminoph 2016-08 No 1 - 2 tab, Memoria en 300 MG / 0-19 PO, Q4H, l Codeine 21:31: PRN Pain, Nay nn Phosphate 00 X 2 day, # 30 MG Oral 20 tab, 0 Tablet Refill(s) [Tylenol with Codeine #3] Acetamino 2016-08 No 1 - 2 tab, Memoria en 300 MG / 0-19 PO, Q4H, l Codeine 21:31: PRN Pain, Nay nn Phosphate 00 X 2 day, # 30 MG Oral 20 tab, 0 Tablet Refill(s) [Tylenol with Codeine #3] protamine 2016-08 No Route: IV, Me moria (ANES) 0-19 Drug form: l 21:05: INJ, ONCE, David 00 Stop date: 06/10/17 16:05:00 CDT protamine 2016-08 No Route: IV, Me moria (ANES) 0-19 Drug form: l 21:05: INJ, ONCE, Mcfarlan Stop date: 06/10/17 16:05:00 CDT protamine 2016-08 No Route: IV, Me moria (ANES) 0-19 Drug form: l 21:05: INJ, ONCE, Mcfarlan Stop date: 06/10/17 16:05:00 CDT protamine 2016-08 No Route: IV, Me moria (ANES) 0-19 Drug form: l 21:05: INJ, ONCE, David Stop date: 06/10/17 16:05:00 CDT protamine 2016-08 No Route: IV, Me moria (ANES) 0-19 Drug form: l 21:05: INJ, ONCE, Stop date: 06/10/17 16:05:00 CDT protamine 2016-08 No Route: IV, Me moria (ANES) 0-19 Drug form: l 21:05: INJ, ONCE, Stop date: 06/10/17 16:05:00 CDT protamine 2016-08 No Route: IV, Me moria (ANES) 0-19 Drug form: l 21:05: INJ, ONCE, Stop date: 06/10/17 16:05:00 CDT protamine 2016-08 No Route: IV, Me moria (ANES) 0-19 Drug form: l 21:05: INJ, ONCE, Stop date: 06/10/17 16:05:00 CDT protamine 2016-08 No Route: IV, Me moria (ANES) 0-19 Drug form: l 21:05: INJ, ONCE, Stop date: 06/10/17 16:05:00 CDT heparin 2016-08 No Route: IV, Connor beto (ANES) 0-19 Drug form: l 20:55: INJ, ONCE, Stop date: 06/10/17 15:55:00 CDT heparin 2016-08 No Route: IV, Connor beto (ANES) 0-19 Drug form: l 20:55: INJ, ONCE, Stop date: 06/10/17 15:55:00 CDT heparin 2016-08 No Route: IV, Connor beto (ANES) 0-19 Drug form: l 20:55: INJ, ONCE, Stop date: 06/10/17 15:55:00 CDT heparin 2016-08 No Route: IV, Connor beto (ANES) 0-19 Drug form: l 20:55: INJ, ONCE, Stop date: 06/10/17 15:55:00 CDT heparin 2016-08 No Route: IV, Connor beto (ANES) 0-19 Drug form: l 20:55: INJ, ONCE, Stop date: 06/10/17 15:55:00 CDT heparin 2016-08 No Route: IV, Connor beto (ANES) 0-19 Drug form: l 20:55: INJ, ONCE, Stop date: 06/10/17 15:55:00 CDT heparin 2016-08 No Route: IV, Connor beto (ANES) 0-19 Drug form: l 20:55: INJ, ONCE, Stop date: 06/10/17 15:55:00 CDT heparin 2016-08 No Route: IV, Connor beto (ANES) 0-19 Drug form: l 20:55: INJ, ONCE, Stop date: 06/10/17 15:55:00 CDT heparin 2016-08 No Route: IV, Connor beto (ANES) 0-19 Drug form: l 20:55: INJ, ONCE, Stop date: 06/10/17 15:55:00 CDT ceFAZolin 2016-08 No Route: IV, Me moria (ANES) 0-19 Drug form: l 20:35: INJ, ONCE, Stop date: 06/10/17 15:35:00 CDT ceFAZolin 2016-08 No Route: IV, Me moria (ANES) 0-19 Drug form: l 20:35: INJ, ONCE, Stop date: 06/10/17 15:35:00 CDT ceFAZolin 2016-08 No Route: IV, Me moria (ANES) 0-19 Drug form: l 20:35: INJ, ONCE, Stop date: 06/10/17 15:35:00 CDT ceFAZolin 2016-08 No Route: IV, Me moria (ANES) 0-19 Drug form: l 20:35: INJ, ONCE, Stop date: 06/10/17 15:35:00 CDT ceFAZolin 2016-08 No Route: IV, Me moria (ANES) 0-19 Drug form: l 20:35: INJ, ONCE, Stop date: 06/10/17 15:35:00 CDT ceFAZolin 2016-08 No Route: IV, Me moria (ANES) 0-19 Drug form: l 20:35: INJ, ONCE, Stop date: 06/10/17 15:35:00 CDT ceFAZolin 2016-08 No Route: IV, Me moria (ANES) 0-19 Drug form: l 20:35: INJ, ONCE, Stop date: 06/10/17 15:35:00 CDT ceFAZolin 2016-08 No Route: IV, Me moria (ANES) 0-19 Drug form: l 20:35: INJ, ONCE, Stop date: 06/10/17 15:35:00 CDT ceFAZolin 2016-08 No Route: IV, Me moria (ANES) 0-19 Drug form: l 20:35: INJ, ONCE, Stop date: 06/10/17 15:35:00 CDT Fentanyl 2016-08 No Notes: Memoria 0-19 (Same as: l 20:34: Sublimaze) Preservat em free. Hydralazine 2016-08 No 10 mg, Connor beto 0-19 Route: l 20:34: IVP, Mcfarlan 00 Q20Min, Dosing Weight 102.784, kg, PRN Elevated BP, Start date: 06/10/17 15:34:00 CDT, Duration: 2 doses or times, Stop date: Limited # of times Naloxone 2016-08 No Notes: Memoria 0-19 Same as l 20:34: Narcan Flumazenil 2016-08 No Notes: Memor ia 0-19 (Same as: l 20:34: Romazicon) Ondansetron 2016-08 No Notes: Connor beto 0-19 (Same as: l 20:34: Zofran) MEDICATION WASTE Product Size: 4 mg Product Wasted: ___ mg Fentanyl 2016-08 No Notes: Memoria 0-19 (Same as: l 20:34: Sublimaze) Preservat em free. Hydralazine 2016-08 No 10 mg, Connor beto 0-19 Route: l 20:34: IVP, David 00 Q20Min, Dosing Weight 102.784, kg, PRN Elevated BP, Start date: 06/10/17 15:34:00 CDT, Duration: 2 doses or times, Stop date: Limited # of times Naloxone 2016-08 No Notes: Memoria 0-19 Same as l 20:34: Narcan David Flumazenil 2016-08 No Notes: Memor ia 0-19 (Same as: l 20:34: Romazicon) Mcfarlan Ondansetron 2016-08 No Notes: Connor beto 0-19 (Same as: l 20:34: Zofran) David 00 MEDICATION WASTE Product Size: 4 mg Product Wasted: ___ mg Fentanyl 2016-08 No Notes: Memoria 0-19 (Same as: l 20:34: Sublimaze) Mcfarlan 00 Preservat em free. Hydralazine 2016-08 No 10 mg, Connor beto 0-19 Route: l 20:34: IVP, David 00 Q20Min, Dosing Weight 102.784, kg, PRN Elevated BP, Start date: 06/10/17 15:34:00 CDT, Duration: 2 doses or times, Stop date: Limited # of times Naloxone 2016-08 No Notes: Memoria 0-19 Same as l 20:34: Narcan Mcfarlan 00 Flumazenil 2016-08 No Notes: Memor ia 0-19 (Same as: l 20:34: Romazicon) David 00 Ondansetron 2016-08 No Notes: Connor beto 0-19 (Same as: l 20:34: Zofran) Mcfarlan 00 MEDICATION WASTE Product Size: 4 mg Product Wasted: ___ mg Fentanyl 2016-08 No Notes: Memoria 0-19 (Same as: l 20:34: Sublimaze) Mcfarlan 00 Preservat em free. Hydralazine 2016-08 No 10 mg, Connor beto 0-19 Route: l 20:34: IVP, Mcfarlan 00 Q20Min, Dosing Weight 102.784, kg, PRN Elevated BP, Start date: 06/10/17 15:34:00 CDT, Duration: 2 doses or times, Stop date: Limited # of times Naloxone 2016-08 No Notes: Memoria 0-19 Same as l 20:34: Narcan David Flumazenil 2016-08 No Notes: Memor ia 0-19 (Same as: l 20:34: Romazicon) David Ondansetron 2016-08 No Notes: Connor beto 0-19 (Same as: l 20:34: Zofran) David 00 MEDICATION WASTE Product Size: 4 mg Product Wasted: ___ mg Fentanyl 2016-08 No Notes: Memoria 0-19 (Same as: l 20:34: Sublimaze) Mcfarlan 00 Preservat em free. Hydralazine 2016-08 No 10 mg, Connor beto 0-19 Route: l 20:34: IVP, Mcfarlan 00 Q20Min, Dosing Weight 102.784, kg, PRN Elevated BP, Start date: 06/10/17 15:34:00 CDT, Duration: 2 doses or times, Stop date: Limited # of times Naloxone 2016-08 No Notes: Memoria 0-19 Same as l 20:34: Narcan Flumazenil 2016-08 No Notes: Memor ia 0-19 (Same as: l 20:34: Romazicon) Ondansetron 2016-08 No Notes: Connor beto 0-19 (Same as: l 20:34: Zofran) Mcfarlan 00 MEDICATION WASTE Product Size: 4 mg Product Wasted: ___ mg Fentanyl 2016-08 No Notes: Memoria 0-19 (Same as: l 20:34: Sublimaze) Preservat em free. Hydralazine 2016-08 No 10 mg, Connor beto 0-19 Route: l 20:34: IVP, Mcfarlan 00 Q20Min, Dosing Weight 102.784, kg, PRN Elevated BP, Start date: 06/10/17 15:34:00 CDT, Duration: 2 doses or times, Stop date: Limited # of times Naloxone 2016-08 No Notes: Memoria 0-19 Same as l 20:34: Narcan Flumazenil 2016-08 No Notes: Memor ia 0-19 (Same as: l 20:34: Romazicon) Ondansetron 2016-08 No Notes: Connor beto 0-19 (Same as: l 20:34: Zofran) Mcfarlan 00 MEDICATION WASTE Product Size: 4 mg Product Wasted: ___ mg Fentanyl 2016-08 No Notes: Memoria 0-19 (Same as: l 20:34: Sublimaze) Mcfarlan Preservat em free. Hydralazine 2016-08 No 10 mg, Connor beto 0-19 Route: l 20:34: IVP, David 00 Q20Min, Dosing Weight 102.784, kg, PRN Elevated BP, Start date: 06/10/17 15:34:00 CDT, Duration: 2 doses or times, Stop date: Limited # of times Naloxone 2016-08 No Notes: Memoria 0-19 Same as l 20:34: Narcan Flumazenil 2016-08 No Notes: Memor ia 0-19 (Same as: l 20:34: Romazicon) Ondansetron 2016-08 No Notes: Connor beto 0-19 (Same as: l 20:34: Zofran) David 00 MEDICATION WASTE Product Size: 4 mg Product Wasted: ___ mg Fentanyl 2016-08 No Notes: Memoria 0-19 (Same as: l 20:34: Sublimaze) Mcfarlan Preservat em free. Hydralazine 2016-08 No 10 mg, Connor beto 0-19 Route: l 20:34: IVP, Mcfarlan 00 Q20Min, Dosing Weight 102.784, kg, PRN Elevated BP, Start date: 06/10/17 15:34:00 CDT, Duration: 2 doses or times, Stop date: Limited # of times Naloxone 2016-08 No Notes: Memoria 0-19 Same as l 20:34: Narcan Flumazenil 2016-08 No Notes: Memor ia 0-19 (Same as: l 20:34: Romazicon) Ondansetron 2016-08 No Notes: Connor beto 0-19 (Same as: l 20:34: Zofran) David 00 MEDICATION WASTE Product Size: 4 mg Product Wasted: ___ mg Fentanyl 2016-08 No Notes: Memoria 0-19 (Same as: l 20:34: Sublimaze) David 00 Preservat em free. Hydralazine 2016-08 No 10 mg, Connor beto 0-19 Route: l 20:34: IVP, Mcfarlan 00 Q20Min, Dosing Weight 102.784, kg, PRN Elevated BP, Start date: 06/10/17 15:34:00 CDT, Duration: 2 doses or times, Stop date: Limited # of times Naloxone 2016-08 No Notes: Memoria 0-19 Same as l 20:34: Narcan Mcfarlan 00 Flumazenil 2016-08 No Notes: Memor ia 0-19 (Same as: l 20:34: Romazicon) Ondansetron 2016-08 No Notes: Connor beto 0-19 (Same as: l 20:34: Zofran) MEDICATION WASTE Product Size: 4 mg Product Wasted: ___ mg midazolam 2016-08 No Route: IV, Me moria (ANES) 0-19 Drug form: l 20:25: SOLN, David 00 ONCE, Stop date: 06/10/17 15:25:00 CDT midazolam 2016-08 No Route: IV, Me moria (ANES) 0-19 Drug form: l 20:25: SOLN, Mcfarlan 00 ONCE, Stop date: 06/10/17 15:25:00 CDT midazolam 2016-08 No Route: IV, Me moria (ANES) 0-19 Drug form: l 20:25: SOLN, Mcfarlan 00 ONCE, Stop date: 06/10/17 15:25:00 CDT midazolam 2016-08 No Route: IV, Me moria (ANES) 0-19 Drug form: l 20:25: SOLN, Mcfarlan 00 ONCE, Stop date: 06/10/17 15:25:00 CDT midazolam 2016-08 No Route: IV, Me moria (ANES) 0-19 Drug form: l 20:25: SOLN, David 00 ONCE, Stop date: 06/10/17 15:25:00 CDT midazolam 2016-08 No Route: IV, Me moria (ANES) 0-19 Drug form: l 20:25: SOLN, Mcfarlan 00 ONCE, Stop date: 06/10/17 15:25:00 CDT midazolam 2016-08 No Route: IV, Me moria (ANES) 0-19 Drug form: l 20:25: SOLN, Mcfarlan 00 ONCE, Stop date: 06/10/17 15:25:00 CDT midazolam 2016-08 No Route: IV, Me moria (ANES) 0-19 Drug form: l 20:25: SOLN, Mcfarlan 00 ONCE, Stop date: 06/10/17 15:25:00 CDT midazolam 2016-08 No Route: IV, Me moria (ANES) 0-19 Drug form: l 20:25: SOLN, Mcfarlan 00 ONCE, Stop date: 06/10/17 15:25:00 CDT sodium 2016-08 No Route: IV, Memor ia chloride 0-19 Total l 0.9% 500 ml 19:49: Volume: Her [place] INJ (ANES) 00 500, Start date: 06/10/17 14:49:00 CDT, Stop date: 06/10/17 15:49:00 CDT sodium 2016-08 No Route: IV, Memor ia chloride 0-19 Total l 0.9% 500 ml 19:49: Volume: Her [place] INJ (ANES) 00 500, Start date: 06/10/17 14:49:00 CDT, Stop date: 06/10/17 15:49:00 CDT sodium 2016-08 No Route: IV, Memor ia chloride 0-19 Total l 0.9% 500 ml 19:49: Volume: Her [place] INJ (ANES) 00 500, Start date: 06/10/17 14:49:00 CDT, Stop date: 06/10/17 15:49:00 CDT sodium 2016-08 No Route: IV, Memor ia chloride 0-19 Total l 0.9% 500 ml 19:49: Volume: Her [place] INJ (ANES) 00 500, Start date: 06/10/17 14:49:00 CDT, Stop date: 06/10/17 15:49:00 CDT sodium 2016-08 No Route: IV, Memor ia chloride 0-19 Total l 0.9% 500 ml 19:49: Volume: Her [place] INJ (ANES) 00 500, Start date: 06/10/17 14:49:00 CDT, Stop date: 06/10/17 15:49:00 CDT sodium 2016-08 No Route: IV, Memor ia chloride 0-19 Total l 0.9% 500 ml 19:49: Volume: Her [place] INJ (ANES) 00 500, Start date: 06/10/17 14:49:00 CDT, Stop date: 06/10/17 15:49:00 CDT sodium 2016-08 No Route: IV, Memor ia chloride 0-19 Total l 0.9% 500 ml 19:49: Volume: Her [place] INJ (ANES) 00 500, Start date: 06/10/17 14:49:00 CDT, Stop date: 06/10/17 15:49:00 CDT sodium 2016-08 No Route: IV, Memor ia chloride 0-19 Total l 0.9% 500 ml 19:49: Volume: Her [place] INJ (ANES) 00 500, Start date: 06/10/17 14:49:00 CDT, Stop date: 06/10/17 15:49:00 CDT sodium 2016-08 No Route: IV, Memor ia chloride 0-19 Total l 0.9% 500 ml 19:49: Volume: Her [place] INJ (ANES) 00 500, Start date: 06/10/17 14:49:00 CDT, Stop date: 06/10/17 15:49:00 CDT glimepiride 2016-08 Yes 2 mg = 1 Me moria 2 mg oral 0-19 tab, PO, l tablet 16:37: Daily, 0 David 00 Refill(s) glimepiride 2016-08 Yes 2 mg = 1 Me moria 2 mg oral 0-19 tab, PO, l tablet 16:37: Daily, 0 Mcfarlan 00 Refill(s) glimepiride 2016-08 Yes 2 mg = 1 Me moria 2 mg oral 0-19 tab, PO, l tablet 16:37: Daily, 0 David 00 Refill(s) glimepiride 2016-08 Yes 2 mg = 1 Me moria 2 mg oral 0-19 tab, PO, l tablet 16:37: Daily, 0 Mcfarlan 00 Refill(s) glimepiride 2016-08 Yes 2 mg = 1 Me moria 2 mg oral 0-19 tab, PO, l tablet 16:37: Daily, 0 David 00 Refill(s) glimepiride 2016-08 Yes 2 mg = 1 Me moria 2 mg oral 0-19 tab, PO, l tablet 16:37: Daily, 0 David 00 Refill(s) glimepiride 2016-08 Yes 2 mg = 1 Me moria 2 mg oral 0-19 tab, PO, l tablet 16:37: Daily, 0 Refill(s) glimepiride 2016-08 Yes 2 mg = 1 Me moria 2 mg oral 0-19 tab, PO, l tablet 16:37: Daily, 0 Refill(s) glimepiride 2016-08 Yes 2 mg = 1 Me moria 2 mg oral 0-19 tab, PO, l tablet 16:37: Daily, 0 Refill(s) clopidogrel 2016-08 Yes 75 mg = 1 M emoria 75 mg oral 0-19 tab, PO, l tablet 16:34: Daily, 0 Refill(s) Sodium 2016-08 Yes 650 mg, Memoria Bicarbonate 0-19 PO, QID, 0 l 16:34: Refill(s) clopidogrel 2016-08 Yes 75 mg = 1 M emoria 75 mg oral 0-19 tab, PO, l tablet 16:34: Daily, 0 Refill(s) Sodium 2016-08 Yes 650 mg, Memoria Bicarbonate 0-19 PO, QID, 0 l 16:34: Refill(s) clopidogrel 2016-08 Yes 75 mg = 1 M emoria 75 mg oral 0-19 tab, PO, l tablet 16:34: Daily, 0 Refill(s) Sodium 2016-08 Yes 650 mg, Memoria Bicarbonate 0-19 PO, QID, 0 l 16:34: Refill(s) clopidogrel 2016-08 Yes 75 mg = 1 M emoria 75 mg oral 0-19 tab, PO, l tablet 16:34: Daily, 0 Refill(s) Sodium 2016-08 Yes 650 mg, Memoria Bicarbonate 0-19 PO, QID, 0 l 16:34: Refill(s) clopidogrel 2016-08 Yes 75 mg = 1 M emoria 75 mg oral 0-19 tab, PO, l tablet 16:34: Daily, 0 Refill(s) Sodium 2016-08 Yes 650 mg, Memoria Bicarbonate 0-19 PO, QID, 0 l 16:34: Refill(s) clopidogrel 2016-08 Yes 75 mg = 1 M emoria 75 mg oral 0-19 tab, PO, l tablet 16:34: Daily, 0 Refill(s) Sodium 2016-08 Yes 650 mg, Memoria Bicarbonate 0-19 PO, QID, 0 l 16:34: Refill(s) clopidogrel 2016-08 Yes 75 mg = 1 M emoria 75 mg oral 0-19 tab, PO, l tablet 16:34: Daily, 0 Refill(s) Sodium 2016-08 Yes 650 mg, Memoria Bicarbonate 0-19 PO, QID, 0 l 16:34: Refill(s) clopidogrel 2016-08 Yes 75 mg = 1 M emoria 75 mg oral 0-19 tab, PO, l tablet 16:34: Daily, 0 Refill(s) Sodium 2016-08 Yes 650 mg, Memoria Bicarbonate 0-19 PO, QID, 0 l 16:34: Refill(s) clopidogrel 2016-08 Yes 75 mg = 1 M emoria 75 mg oral 0-19 tab, PO, l tablet 16:34: Daily, 0 Refill(s) Sodium 2016-08 Yes 650 mg, Memoria Bicarbonate 0-19 PO, QID, 0 l 16:34: Refill(s) Aspirin 2016-08 Yes 0 Memoria 0-19 Refill(s) l 16:33: Hydralazine 2016-08 Yes 50 mg = 1 M emoria Hydrochlori 0-19 tab, PO, l de 50 MG 16:33: QID, 0 David Oral Tablet 00 Refill(s) Aspirin 2016-08 Yes 0 Memoria 0-19 Refill(s) l 16:33: Hydralazine 2016-08 Yes 50 mg = 1 M emoria Hydrochlori 0-19 tab, PO, l de 50 MG 16:33: QID, 0 David Oral Tablet 00 Refill(s) Aspirin 2016-08 Yes 0 Memoria 0-19 Refill(s) l 16:33: Hydralazine 2016-08 Yes 50 mg = 1 M emoria Hydrochlori 0-19 tab, PO, l de 50 MG 16:33: QID, 0 Mcfarlan Oral Tablet 00 Refill(s) Aspirin 2016-08 Yes 0 Memoria 0-19 Refill(s) l 16:33: David 00 Hydralazine 2016-08 Yes 50 mg = 1 M emoria Hydrochlori 0-19 tab, PO, l de 50 MG 16:33: QID, 0 Mcfarlan Oral Tablet 00 Refill(s) Aspirin 2016-08 Yes 0 Memoria 0-19 Refill(s) l 16:33: David Hydralazine 2016-08 Yes 50 mg = 1 M emoria Hydrochlori 0-19 tab, PO, l de 50 MG 16:33: QID, 0 David Oral Tablet 00 Refill(s) Aspirin 2016-08 Yes 0 Memoria 0-19 Refill(s) l 16:33: Mcfarlan Hydralazine 2016-08 Yes 50 mg = 1 M emoria Hydrochlori 0-19 tab, PO, l de 50 MG 16:33: QID, 0 Mcfarlan Oral Tablet 00 Refill(s) Aspirin 2016-08 Yes 0 Memoria 0-19 Refill(s) l 16:33: Mcfarlan Hydralazine 2016-08 Yes 50 mg = 1 M emoria Hydrochlori 0-19 tab, PO, l de 50 MG 16:33: QID, 0 Mcfarlan Oral Tablet 00 Refill(s) Aspirin 2016-08 Yes 0 Memoria 0-19 Refill(s) l 16:33: [place]an Hydralazine 2016-08 Yes 50 mg = 1 M emoria Hydrochlori 0-19 tab, PO, l de 50 MG 16:33: QID, 0 Mcfarlan Oral Tablet 00 Refill(s) Aspirin 2016-08 Yes 0 Memoria 0-19 Refill(s) l 16:33: David 00 Hydralazine 2016-08 Yes 50 mg = 1 M emoria Hydrochlori 0-19 tab, PO, l de 50 MG 16:33: QID, 0 Mcfarlan Oral Tablet 00 Refill(s) Amlodipine 2016-08 Yes PO, Daily, M emoria 0-19 0 l 16:32: Refill(s) Mcfarlan pravastatin 2016-08 Yes 40 mg = 1 M emoria 40 mg oral 0-19 tab, PO, l tablet 16:32: Daily, 0 [place]an 00 Refill(s) Amlodipine 2016-08 Yes PO, Daily, M emoria 0-19 0 l 16:32: Refill(s) pravastatin 2016-08 Yes 40 mg = 1 M emoria 40 mg oral 0-19 tab, PO, l tablet 16:32: Daily, 0 Refill(s) Amlodipine 2016-08 Yes PO, Daily, M emoria 0-19 0 l 16:32: Refill(s) pravastatin 2016-08 Yes 40 mg = 1 M emoria 40 mg oral 0-19 tab, PO, l tablet 16:32: Daily, 0 Refill(s) Amlodipine 2016-08 Yes PO, Daily, M emoria 0-19 0 l 16:32: Refill(s) pravastatin 2016-08 Yes 40 mg = 1 M emoria 40 mg oral 0-19 tab, PO, l tablet 16:32: Daily, 0 Refill(s) Amlodipine 2016-08 Yes PO, Daily, M emoria 0-19 0 l 16:32: Refill(s) pravastatin 2016-08 Yes 40 mg = 1 M emoria 40 mg oral 0-19 tab, PO, l tablet 16:32: Daily, 0 Refill(s) Amlodipine 2016-08 Yes PO, Daily, M emoria 0-19 0 l 16:32: Refill(s) pravastatin 2016-08 Yes 40 mg = 1 M emoria 40 mg oral 0-19 tab, PO, l tablet 16:32: Daily, 0 Refill(s) Amlodipine 2016-08 Yes PO, Daily, M emoria 0-19 0 l 16:32: Refill(s) pravastatin 2016-08 Yes 40 mg = 1 M emoria 40 mg oral 0-19 tab, PO, l tablet 16:32: Daily, 0 Refill(s) Amlodipine 2016-08 Yes PO, Daily, M emoria 0-19 0 l 16:32: Refill(s) pravastatin 2016-08 Yes 40 mg = 1 M emoria 40 mg oral 0-19 tab, PO, l tablet 16:32: Daily, 0 Refill(s) Amlodipine 2016-08 Yes PO, Daily, M emoria 0-19 0 l 16:32: Refill(s) David 00 pravastatin 2016-08 Yes 40 mg = 1 M emoria 40 mg oral 0-19 tab, PO, l tablet 16:32: Daily, 0 [place] 00 Refill(s) metoprolol 2016-08 Yes 25 mg = 1 Me moria 25 mg oral 0-19 tab, PO, l tablet, 16:31: Daily, 0 Bob n extended 00 Refill(s) release metoprolol 2016-08 Yes 25 mg = 1 Me moria 25 mg oral 0-19 tab, PO, l tablet, 16:31: Daily, 0 Bob n extended 00 Refill(s) release metoprolol 2016-08 Yes 25 mg = 1 Me moria 25 mg oral 0-19 tab, PO, l tablet, 16:31: Daily, 0 Bob n extended 00 Refill(s) release metoprolol 2016-08 Yes 25 mg = 1 Me moria 25 mg oral 0-19 tab, PO, l tablet, 16:31: Daily, 0 Bob n extended 00 Refill(s) release metoprolol 2016-08 Yes 25 mg = 1 Me moria 25 mg oral 0-19 tab, PO, l tablet, 16:31: Daily, 0 Bob n extended 00 Refill(s) release metoprolol 2016-08 Yes 25 mg = 1 Me moria 25 mg oral 0-19 tab, PO, l tablet, 16:31: Daily, 0 Bob n extended 00 Refill(s) release metoprolol 2016-08 Yes 25 mg = 1 Me moria 25 mg oral 0-19 tab, PO, l tablet, 16:31: Daily, 0 Bob n extended 00 Refill(s) release metoprolol 2016-08 Yes 25 mg = 1 Me moria 25 mg oral 0-19 tab, PO, l tablet, 16:31: Daily, 0 Bob n extended 00 Refill(s) release metoprolol 2016-08 Yes 25 mg = 1 Me moria 25 mg oral 0-19 tab, PO, l tablet, 16:31: Daily, 0 Bob n extended 00 Refill(s) release {6 Yes See Memoria (Azithromyc 4-17 Instructio l in 250 MG 05:39: ns, Take 2 He rmann Oral Tablet 00 tablets by [Zithromax] mouth the ) } Pack first day [Z-PAKS] then 1 tablet by mouth days 2-5., X 5 day, # 6 tab, 0 Refill(s) {6 Yes See Memoria (Azithromyc 4-17 Instructio l in 250 MG 05:39: ns, Take 2 He rmann Oral Tablet 00 tablets by [Zithromax] mouth the ) } Pack first day [Z-PAKS] then 1 tablet by mouth days 2-5., X 5 day, # 6 tab, 0 Refill(s) {6 Yes See Memoria (Azithromyc 4-17 Instructio l in 250 MG 05:39: ns, Take 2 He rmann Oral Tablet 00 tablets by [Zithromax] mouth the ) } Pack first day [Z-PAKS] then 1 tablet by mouth days 2-5., X 5 day, # 6 tab, 0 Refill(s) { Yes See Memoria (Azithromyc 4-17 Instructio l in 250 MG 05:39: ns, Take 2 He rmann Oral Tablet 00 tablets by [Zithromax] mouth the ) } Pack first day [Z-PAKS] then 1 tablet by mouth days 2-5., X 5 day, # 6 tab, 0 Refill(s) {6 Yes See Memoria (Azithromyc 4-17 Instructio l in 250 MG 05:39: ns, Take 2 He rmann Oral Tablet 00 tablets by [Zithromax] mouth the ) } Pack first day [Z-PAKS] then 1 tablet by mouth days 2-5., X 5 day, # 6 tab, 0 Refill(s) {6 Yes See Memoria (Azithromyc 4-17 Instructio l in 250 MG 05:39: ns, Take 2 He rmann Oral Tablet 00 tablets by [Zithromax] mouth the ) } Pack first day [Z-PAKS] then 1 tablet by mouth days 2-5., X 5 day, # 6 tab, 0 Refill(s) {6 Yes See Memoria (Azithromyc 4-17 Instructio l in 250 MG 05:39: ns, Take 2 He rmann Oral Tablet 00 tablets by [Zithromax] mouth the ) } Pack first day [Z-PAKS] then 1 tablet by mouth days 2-5., X 5 day, # 6 tab, 0 Refill(s) {6 Yes See Memoria (Azithromyc 4-17 Instructio l in 250 MG 05:39: ns, Take 2 He rmann Oral Tablet 00 tablets by [Zithromax] mouth the ) } Pack first day [Z-PAKS] then 1 tablet by mouth days 2-5., X 5 day, # 6 tab, 0 Refill(s) {6 Yes See Memoria (Azithromyc 4-17 Instructio l in 250 MG 05:39: ns, Take 2 He rmann Oral Tablet 00 tablets by [Zithromax] mouth the ) } Pack first day [Z-PAKS] then 1 tablet by mouth days 2-5., X 5 day, # 6 tab, 0 Refill(s) predniSONE Yes 40 mg = 2 Me moria 20 mg oral 4-17 tab, PO, l tablet 05:38: Daily, X 5 Nay nn 00 day, # 10 tab, 0 Refill(s) 200 ACTUAT 0 Yes 2 puff, Connor beto Albuterol 4-17 INHALATION l 0.09 05:38: , Q4H, PRN David MG/ACTUAT 00 as needed Dry Powder for Inhaler shortness of breath or wheezing, # 1 box, 0 Refill(s) predniSONE Yes 40 mg = 2 Me moria 20 mg oral 4-17 tab, PO, l tablet 05:38: Daily, X 5 Nay nn 00 day, # 10 tab, 0 Refill(s) 200 ACTUAT 0 Yes 2 puff, Connor beto Albuterol 4-17 INHALATION l 0.09 05:38: , Q4H, PRN David MG/ACTUAT 00 as needed Dry Powder for Inhaler shortness of breath or wheezing, # 1 box, 0 Refill(s) predniSONE Yes 40 mg = 2 Me moria 20 mg oral 4-17 tab, PO, l tablet 05:38: Daily, X 5 Nay nn 00 day, # 10 tab, 0 Refill(s) 200 ACTUAT 0 Yes 2 puff, Connor beto Albuterol 4-17 INHALATION l 0.09 05:38: , Q4H, PRN David MG/ACTUAT 00 as needed Dry Powder for Inhaler shortness of breath or wheezing, # 1 box, 0 Refill(s) predniSONE Yes 40 mg = 2 Me moria 20 mg oral 4-17 tab, PO, l tablet 05:38: Daily, X 5 Nay day, # 10 tab, 0 Refill(s) 200 ACTUAT 0 Yes 2 puff, Connor beto Albuterol 4-17 INHALATION l 0.09 05:38: , Q4H, PRN Mcfarlan MG/ACTUAT 00 as needed Dry Powder for Inhaler shortness of breath or wheezing, # 1 box, 0 Refill(s) predniSONE Yes 40 mg = 2 Me moria 20 mg oral 4-17 tab, PO, l tablet 05:38: Daily, X 5 Nay day, # 10 tab, 0 Refill(s) 200 ACTUAT 0 Yes 2 puff, Connor beto Albuterol 4-17 INHALATION l 0.09 05:38: , Q4H, PRN [place] MG/ACTUAT 00 as needed Dry Powder for Inhaler shortness of breath or wheezing, # 1 box, 0 Refill(s) predniSONE Yes 40 mg = 2 Me moria 20 mg oral 4-17 tab, PO, l tablet 05:38: Daily, X 5 Nay day, # 10 tab, 0 Refill(s) 200 ACTUAT Yes 2 puff, Connor beto Albuterol 4-17 INHALATION l 0.09 05:38: , Q4H, PRN [place] MG/ACTUAT 00 as needed Dry Powder for Inhaler shortness of breath or wheezing, # 1 box, 0 Refill(s) predniSONE Yes 40 mg = 2 Me moria 20 mg oral 4-17 tab, PO, l tablet 05:38: Daily, X 5 Nay day, # 10 tab, 0 Refill(s) 200 ACTUAT 0 Yes 2 puff, Connor beto Albuterol 4-17 INHALATION l 0.09 05:38: , Q4H, PRN [place] MG/ACTUAT 00 as needed Dry Powder for Inhaler shortness of breath or wheezing, # 1 box, 0 Refill(s) predniSONE 2017-0 Yes 40 mg = 2 Me moria 20 mg oral 4-17 tab, PO, l tablet 05:38: Daily, X 5 Nay nn day, # 10 tab, 0 Refill(s) 200 ACTUAT 2017 Yes 2 puff, Connor beto Albuterol 4-17 INHALATION l 0.09 05:38: , Q4H, PRN [place] MG/ACTUAT 00 as needed Dry Powder for Inhaler shortness of breath or wheezing, # 1 box, 0 Refill(s) predniSONE 2017 Yes 40 mg = 2 Me moria 20 mg oral 4-17 tab, PO, l tablet 05:38: Daily, X 5 Nay nn day, # 10 tab, 0 Refill(s) 200 ACTUAT Yes 2 puff, Connor beto Albuterol 4-17 INHALATION l 0.09 05:38: , Q4H, PRN David MG/ACTUAT 00 as needed Dry Powder for Inhaler shortness of breath or wheezing, # 1 box, 0 Refill(s) Albuterol No Notes: SEE Me moria 0.83 MG/ML 4-17 RT l Inhalant 05:02: DOCUMENTAT [place] Solution 00 ION (Same as: Proventil) Ipratropium No Notes: SEE Memoria 4-17 RT l 05:02: DOCUMENTAT David 00 ION (Same as:Atroven t) Solu-Medrol No Notes: Connor beto 4-17 (Same l 05:02: as:Solu-ME David 00 DROL, A-Methapre d) Albuterol No Notes: SEE Me moria 0.83 MG/ML 4-17 RT l Inhalant 05:02: DOCUMENTAT [place] Solution 00 ION (Same as: Proventil) Ipratropium No Notes: SEE Memoria 4-17 RT l 05:02: DOCUMENTAT David 00 ION (Same as:Atroven t) Solu-Medrol No Notes: Connor beto 4-17 (Same l 05:02: as:Solu-ME David 00 DROL, A-Methapre d) Albuterol No Notes: SEE Me moria 0.83 MG/ML -17 RT l Inhalant 05:02: DOCUMENTAT [place] Solution 00 ION (Same as: Proventil) Ipratropium No Notes: SEE Memoria 4-17 RT l 05:02: DOCUMENTAT David 00 ION (Same as:Atroven t) Solu-Medrol No Notes: Connor beto 4-17 (Same l 05:02: as:Solu-ME [place] 00 DROL, A-Methapre d) Albuterol No Notes: SEE Me moria 0.83 MG/ML -17 RT l Inhalant 05:02: DOCUMENTAT [place] Solution 00 ION (Same as: Proventil) Ipratropium No Notes: SEE Memoria 17 RT l 05:02: DOCUMENTAT [place] 00 ION (Same as:Atroven t) Solu-Medrol No Notes: Connor beto -17 (Same l 05:02: as:Solu-ME [place] 00 DROL, A-Methapre d) Albuterol No Notes: SEE Me moria 0.83 MG/ML - RT l Inhalant 05:02: DOCUMENTAT [place] Solution 00 ION (Same as: Proventil) Ipratropium No Notes: SEE Memoria -17 RT l 05:02: DOCUMENTAT [place] 00 ION (Same as:Atroven t) Solu-Medrol No Notes: Connor beto -17 (Same l 05:02: as:Solu-ME David 00 DROL, A-Methapre d) Albuterol No Notes: SEE Me moria 0.83 MG/ML 12-07 RT l Inhalant 05:02: DOCUMENTAT [place] Solution 00 ION (Same as: Proventil) Ipratropium 2016-0 No Notes: SEE Memoria 4-17 RT l 05:02: DOCUMENTAT [place] 00 ION (Same as:Atroven t) Solu-Medrol 0 No Notes: Connor beto 4-17 (Same l 05:02: as:Solu-ME [place] 00 DROL, A-Methapre d) Albuterol No Notes: SEE Me moria 0.83 MG/ML -17 RT l Inhalant 05:02: DOCUMENTAT [place] Solution 00 ION (Same as: Proventil) Ipratropium No Notes: SEE Memoria -17 RT l 05:02: DOCUMENTAT David 00 ION (Same as:Atroven t) Solu-Medrol No Notes: Connor beto -17 (Same l 05:02: as:Solu-ME [place] 00 DROL, A-Methapre d) Albuterol No Notes: SEE Me moria 0.83 MG/ML 12-07 RT l Inhalant 05:02: DOCUMENTAT [place] Solution 00 ION (Same as: Proventil) Ipratropium No Notes: SEE Memoria 12-07 RT l 05:02: DOCUMENTAT [place] 00 ION (Same as:Atroven t) Solu-Medrol No Notes: Connor beto 17 (Same l 05:02: as:Solu-ME David 00 DROL, A-Methapre d) Albuterol No Notes: SEE Me moria 0.83 MG/ML 12-07 RT l Inhalant 05:02: DOCUMENTAT [place] Solution 00 ION (Same as: Proventil) Ipratropium No Notes: SEE Memoria 17 RT l 05:02: DOCUMENTAT [place] 00 ION (Same as:Atroven t) Solu-Medrol No Notes: Connor beto 17 (Same l 05:02: as:Solu-ME David 00 DROL, A-Methapre d) Furosemide Yes 40 mg = 1 Me moria 40 MG Oral 3-21 tab, PO, l Tablet 07:30: Daily, # David 00 30 tab, 0 Refill(s) Furosemide Yes 40 mg = 1 Me moria 40 MG Oral 3-21 tab, PO, l Tablet 07:30: Daily, # [place] 00 30 tab, 0 Refill(s) Furosemide Yes 40 mg = 1 Me moria 40 MG Oral 3-21 tab, PO, l Tablet 07:30: Daily, # [place] 00 30 tab, 0 Refill(s) Furosemide 2017-0 Yes 40 mg = 1 Me moria 40 MG Oral 3-21 tab, PO, l Tablet 07:30: Daily, # David 00 30 tab, 0 Refill(s) Furosemide 2017-0 Yes 40 mg = 1 Me moria 40 MG Oral 3-21 tab, PO, l Tablet 07:30: Daily, # David 00 30 tab, 0 Refill(s) Furosemide 2017-0 Yes 40 mg = 1 Me moria 40 MG Oral 3-21 tab, PO, l Tablet 07:30: Daily, # David 00 30 tab, 0 Refill(s) Furosemide 2017-0 Yes 40 mg = 1 Me moria 40 MG Oral 3-21 tab, PO, l Tablet 07:30: Daily, # David 00 30 tab, 0 Refill(s) Furosemide 2017-0 Yes 40 mg = 1 Me moria 40 MG Oral 3-21 tab, PO, l Tablet 07:30: Daily, # David 00 30 tab, 0 Refill(s) Furosemide 2017-0 Yes 40 mg = 1 Me moria 40 MG Oral 3-21 tab, PO, l Tablet 07:30: Daily, # David 00 30 tab, 0 Refill(s) Lasix 2017-0 No Notes: Memoria 11-10 (Same as: l 06:29: Lasix) David 00 MEDICATION WASTE Product Size: 40 mg Product Wasted: ___ mg Lasix 2016-0 No Notes: Memoria 11-10 (Same as: l 06:29: Lasix) David 00 MEDICATION WASTE Product Size: 40 mg Product Wasted: ___ mg Lasix 2016-0 No Notes: Memoria 11-10 (Same as: l 06:29: Lasix) David 00 MEDICATION WASTE Product Size: 40 mg Product Wasted: ___ mg Lasix 2017-0 No Notes: Memoria 11-10 (Same as: l 06:29: Lasix) David 00 MEDICATION WASTE Product Size: 40 mg Product Wasted: ___ mg Lasix 2017-0 No Notes: Memoria 3 (Same as: l 06:29: Lasix) David 00 MEDICATION WASTE Product Size: 40 mg Product Wasted: ___ mg Lasix No Notes: Memoria 3-21 (Same as: l 06:29: Lasix) [place] 00 MEDICATION WASTE Product Size: 40 mg Product Wasted: ___ mg Lasix No Notes: Memoria 3-21 (Same as: l 06:29: Lasix) David 00 MEDICATION WASTE Product Size: 40 mg Product Wasted: ___ mg Lasix No Notes: Memoria 3-21 (Same as: l 06:29: Lasix) [place] 00 MEDICATION WASTE Product Size: 40 mg Product Wasted: ___ mg Lasix No Notes: Memoria 3-21 (Same as: l 06:29: Lasix) [place] 00 MEDICATION WASTE Product Size: 40 mg Product Wasted: ___ mg Furosemide No Notes: Memor ia 40 MG Oral 3-21 (Same as: l Tablet 05:00: Lasix) [place] [Lasix] 00 May cause GI upset. Give with food or milk. Furosemide No Notes: Memor ia 40 MG Oral 3-21 (Same as: l Tablet 05:00: Lasix) [place] [Lasix] 00 May cause GI upset. Give with food or milk. Furosemide No Notes: Memor ia 40 MG Oral 3-21 (Same as: l Tablet 05:00: Lasix) David [Lasix] 00 May cause GI upset. Give with food or milk. Furosemide No Notes: Memor ia 40 MG Oral 3-21 (Same as: l Tablet 05:00: Lasix) [place] [Lasix] 00 May cause GI upset. Give with food or milk. Furosemide No Notes: Memor ia 40 MG Oral 3-21 (Same as: l Tablet 05:00: Lasix) [place] [Lasix] 00 May cause GI upset. Give with food or milk. Furosemide No Notes: Memor ia 40 MG Oral 3-21 (Same as: l Tablet 05:00: Lasix) [place] [Lasix] 00 May cause GI upset. Give with food or milk. Furosemide No Notes: Memor ia 40 MG Oral 3-21 (Same as: l Tablet 05:00: Lasix) David [Lasix] 00 May cause GI upset. Give with food or milk. Furosemide No Notes: Memor ia 40 MG Oral 3-21 (Same as: l Tablet 05:00: Lasix) [place] [Lasix] 00 May cause GI upset. Give with food or milk. Furosemide No Notes: Memor ia 40 MG Oral 3-21 (Same as: l Tablet 05:00: Lasix) David [Lasix] 00 May cause GI upset. Give with food or milk. glimepiride Yes 2mg Take 1 Univ ers (AMARYL) 2 7-09 tablet by ity of mg tablet 00:00: mouth 2 [place] 00 (two) Medical times Branch daily. glimepiride Yes 2mg Take 1 Univ ers (AMARYL) 2 7-09 tablet by ity of mg tablet 00:00: mouth 2 [place] 00 (two) Medical times Branch daily. glimepiride Yes 2mg Take 1 Univ ers (AMARYL) 2 7-09 tablet by ity of mg tablet 00:00: mouth 2 [place] 00 (two) Medical times Branch daily. hydralAZINE 2014-08 Yes 100mg Take 1 Tab Univers (APRESOLINE 0-06 by mouth ity of ) 100 mg 00:00: every 8 [place] tablet 00 (eight) Medical hours. Branch amLODIPine 2014-08 Yes 10mg Take 1 Tab U nivers (NORVASC) 0-06 by mouth ity of 10 mg 00:00: daily. [place] tablet 00 Medical Branch hydralAZINE 2014-08 Yes 100mg Take 1 Tab Univers (APRESOLINE 0-06 by mouth ity of ) 100 mg 00:00: every 8 [place] tablet 00 (eight) Medical hours. Branch amLODIPine 2014-08 Yes 10mg Take 1 Tab U nivers (NORVASC) 0-06 by mouth ity of 10 mg 00:00: daily. [place] tablet 00 Medical Branch hydralAZINE 2014-08 Yes 100mg Take 1 Tab Univers (APRESOLINE 0-06 by mouth ity of ) 100 mg 00:00: every 8 [place] tablet 00 (eight) Medical hours. Branch amLODIPine 2014-08 Yes 10mg Take 1 Tab U nivers (NORVASC) 0-06 by mouth ity of 10 mg 00:00: daily. [place] tablet 00 [facility] aspirin 81 2014-08- No 81mg Take 1 Tab Univers mg chewable 0-06 10-18 by mouth ity of tablet 00:00: 00:00 daily. [place] 00 : [facility] aspirin 81 2014-08- No 81mg Take 1 Tab Univers mg chewable 0-06 10-18 by mouth ity of tablet 00:00: 00:00 daily. [place] 00 :00 [facility] HydrALAZINE HydrALAZINE Yes U nivers HCl - 100 HCl - 100 ity o f MG Oral MG Oral [place] Tablet Tablet Physici ans Clopidogrel Clopidogrel Yes U nivers Bisulfate Bisulfate ity o f 75 MG Oral 75 MG Oral Thien as Tablet Tablet Physici ans Glimepiride Glimepiride Yes U nivers 2 MG Oral 2 MG Oral ity o f Tablet Tablet [place] Physici ans Sarthak Low Sarthak Low Yes Unive rs Dose 81 MG Dose 81 MG ity of Oral Tablet Oral Tablet [place] Delayed Delayed Physici Release Release ans AmLODIPine AmLODIPine Yes Uni vers Besylate 10 Besylate 10 i ty of MG Oral MG Oral [place] Tablet Tablet Physici ans Metoprolol Metoprolol Yes Uni vers Tartrate 25 Tartrate 25 i ty of MG Oral MG Oral [place] Tablet Tablet Physici ans Furosemide Furosemide Yes Uni vers 40 MG Oral 40 MG Oral ity of Tablet Tablet [place] Physici ans Pravastatin Pravastatin Yes U nivers Sodium 40 Sodium 40 ity o f MG Oral MG Oral [place] Tablet Tablet Physici ans Losartan Losartan Yes Univers Potassium Potassium ity o f 25 MG Oral 25 MG Oral Thien as Tablet Tablet Physici ans Bumetanide Bumetanide Yes Uni vers TABS TABS ity of [place] Physici ans Immunizations Ordered Filled Immunization Date Status Comments Sour e Immunization Name Name Influenza Virus 2018-05-03 Completed Universit y of Vaccine 00:00:00 [facility] Influenza Virus 2018-05-03 Completed Universit y of Vaccine 00:00:00 [facility] Influenza Virus 2018-05-03 Completed Universit y of Vaccine 00:00:00 [facility] Pneumococcal 2018-04-23 Completed University o f Polysaccharide, 00:00:00 [facility] [place] ica PPSV23 (PNEUMOVAX) Branch Pneumococcal 2018-04-23 Completed University o f Polysaccharide, 00:00:00 [place] Med ical PPSV23 (PNEUMOVAX) Branch Pneumococcal 2018-04-23 Completed University o f Polysaccharide, 00:00:00 [place] Med ical PPSV23 (PNEUMOVAX) Branch PPD (TB) 2017-09-21 Completed University of 00:00:00 [facility] PPD (TB) 2017-09-21 Completed University of 00:00:00 [facility] PPD (TB) 2017-09-21 Completed University of 00:00:00 [facility] Pneumococcal 2016-02-28 Completed University o f Polysaccharide, 00:00:00 [place] Med ical PPSV23 (PNEUMOVAX) Branch Pneumococcal 2016-02-28 Completed [place] o f Polysaccharide, 00:00:00 [place] Med ical PPSV23 (PNEUMOVAX) Branch Pneumococcal 2016-02-28 Completed [place] o f Polysaccharide, 00:00:00 [facility] [place] ical PPSV23 (PNEUMOVAX) Branch Influenza Virus 2015-05-28 Completed Universit y of Vaccine Quad IM 3+ 00:00:00 [facility] Influenza Virus 2015-05-28 Completed Universit y of Vaccine Quad IM 3+ 00:00:00 [facility] Influenza Virus 2015-05-28 Completed Universit y of Vaccine Quad IM 3+ 00:00:00 [facility] Vital Signs Vital Name Observation Time Observation Value Comments Source Systolic blood 2021-06-09 116 mm[Hg] [facility] pressure 18:41:00 [facility] Diastolic blood 2021-06-09 46 mm[Hg] [place] o f pressure 18:41:00 [facility] Heart rate 2021-06-09 78 /min [facility] 18:41:00 [facility] Body height 2021-06-09 175.3 cm University 18:41:00 [facility] Body weight 2021-06-09 108.001 kg [facility] 18:41:00 [facility] BMI 2021-06-09 35.16 kg/m2 University 18:41:00 [facility] Oxygen saturation 2021-06-09 99 /min [facility] in Arterial blood 18:41:00 [facility] by Pulse oximetry Branch Temperature Oral 2020-12-11 [facility]5 [facility] 17[facility]00:00 Heart Rate 2020-12-11 [facility] n 17:00:00 Respitory Rate 2020-12-11 [facility] 17:00:00 Systolic (mm Hg) 2020-12-11 [facility] 17:00:00 Diastolic (mm Hg) 2020-12-11 [facility] 17:00:00 Temperature Oral 2020-12-11 98.6 F [facility] (F) 13:00:00 Heart Rate 2020-12-11 [facility] 13:00:00 Respitory Rate 2020-12-11 [facility] 13:00:00 Systolic (mm Hg) 2020-12-11 [facility] 13:00:00 Diastolic (mm Hg) 2020-12-11 [facility] 13:00:00 Respitory Rate 2020-12-11 [facility] 11:59:00 Temperature Oral 2020-12-11 98.8 F [facility] rmann (F) 09:00:00 Heart Rate 2020-12-11 [facility] n 09:00:00 Systolic (mm Hg) 2020-12-11 [facility] 09:00:00 Diastolic (mm Hg) 2020-12-11 [facility] 09:00:00 Weight 2020-12-10 [facility] 11:02:00 Height 2018-01-10 175.26 cm [facility] 12:32:00 BMI Calculated 2018-01-10 [facility] 12:32:00 Weight 2018-01-10 [facility] 12:32:00 Systolic (mm Hg) 2018-01-10 [facility] 12:11:00 Diastolic (mm Hg) 2018-01-10 [facility] 12:11:00 Respitory Rate 2018-01-10 [facility] 12:11:00 Heart Rate 2018-01-10 [facility] 12:11:00 Respitory Rate 2017-11-17 [facility] 23:00:00 Systolic (mm Hg) 2017-11-17 [facility] 23:00:00 Diastolic (mm Hg) 2017-11-17 [facility] 23:00:00 Respitory Rate 2017-11-17 [facility] 22:30:00 Systolic (mm Hg) 2017-11-17 [facility] 22:30:00 Diastolic (mm Hg) 2017-11-17 [facility] 22:30:00 Systolic (mm Hg) 2017-11-17 [facility] 22:00:00 Diastolic (mm Hg) 2017-11-17 [facility] 22:00:00 Respitory Rate 2017-11-17 [facility] 22:00:00 Heart Rate 2017-10-21 [facility] 00:38:00 Temperature Oral 2017-10-21 98.5 F [facility] (F) 00:38:00 Respitory Rate 2017-10-21 [facility] 00:38:00 Systolic (mm Hg) 2017-10-21 [facility] 00:38:00 Diastolic (mm Hg) 2017-10-21 [facility] 00:38:00 Weight 2017-10-21 [facility] 00:25:00 Heart Rate 2017-10-21 [facility] 00:25:00 Systolic (mm Hg) 2017-10-21 [facility] 00:25:00 Diastolic (mm Hg) 2017-10-21 [facility] 00:25:00 Respitory Rate 2017-10-21 [facility] 00:25:00 Systolic (mm Hg) 2017-10-20 [facility] 19:05:00 Diastolic (mm Hg) 2017-10-20 [facility] 19:05:00 Respitory Rate 2017-10-20 [facility] 18:45:00 Temperature Oral 2017-10-20 98.2 F [facility] (F) 15:30:00 Heart Rate 2017-10-20 [facility] 15:30:00 Temperature Oral 2017-10-20 97.6 F [facility] (F) 13:53:00 Weight 2017-10-20 [facility] 04:22:00 BMI Calculated 2017-10-20 [facility] 04:22:00 Height 2017-10-20 175.26 cm [facility] 04:22:00 Height 2017-10-20 175.26 cm [facility] 00:27:00 Weight 2017-10-20 [facility] 00:27:00 BMI Calculated 2017-10-20 [facility] 00:27:00 Temperature Oral 2017-08-11 98.6 F [facility] (F) 09:31:00 Respitory Rate 2017-08-11 [facility] 09:31:00 Systolic (mm Hg) 2017-08-11 [facility] 09:31:00 Diastolic (mm Hg) 2017-08-11 [facility] 09:31:00 Temperature Oral 2017-08-11 98.6 F Sahil Davis rmann (F) 06:26:00 Systolic (mm Hg) 2017-08-11 [facility] 06:26:00 Diastolic (mm Hg) 2017-08-11 [facility] 06:26:00 Respitory Rate 2017-08-11 [facility] 06:26:00 Systolic (mm Hg) 2017-08-11 [facility] 04:22:00 Diastolic (mm Hg) 2017-08-11 [facility] 04:22:00 Heart Rate 2017-08-11 [facility] Bob n 04:22:00 Respitory Rate 2017-08-11 [facility] 04:22:00 Temperature Oral 2017-08-11 98.4 F [facility] rmann (F) 04:22:00 Heart Rate 2017-08-11 Sahil Palmeran n 02:09:00 Weight 2017-08-10 [facility] Bob n 22:12:00 Heart Rate 2017-08-10 Sahil Bob n 22:12:00 BP Systolic 2017-07-21 128 mm[Hg] Location: [facility] 11:32:00 Position: [place] [facility] s Sitting BP Diastolic 2017-07-21 62 mm[Hg] Location: [facility] 11:32:00 Position: [place] [facility]ician [facility] Sitting Weight 2017-07-21 228.375 [lb_av] University o f 11:32:00 [place] [facility]ician s Body Mass Index 2017-07-21 33.73 kg/m2 University o f Calculated 11:32:00 [place] Physician s Temperature 2017-07-21 98.3 [degF] Method: Oral University of 11:32:00 [place] Physician s Heart Rate 2017-07-21 64 /min Location: R [place] of 11:32:00 Brachial [place] [facility] s Artery; Quality: Normal Respiration Rate 2017-07-21 18 /min Quality: Normal Universi ty of 11:32:00 [place] Physician s BP Systolic 2017-06-30 133 mm[Hg] Location: [facility] 11:39:00 Position: [place] Physician s Sitting BP Diastolic 2017-06-30 73 mm[Hg] Location: [facility] 11:39:00 Position: [place] Physician s Sitting Weight 2017-06-30 229.5 [lb_av] University of 11:39:00 [place] Physician s Body Mass Index 2017-06-30 33.89 kg/m2 University o f Calculated 11:39:00 [place] Physician s Temperature 2017-06-30 97.4 [degF] Method: Oral University of 11:39:00 [place] Physician s Heart Rate 2017-06-30 61 /min University 11:39:00 [place] Physician s Respiration Rate 2017-06-30 16 /min University of 11:39:00 [place] [facility] s Heart Rate 2017-06-25 [facility] 17:57:00 Temperature Oral 2017-06-25 98.3 F [facility] (F) 17:57:00 Respitory Rate 2017-06-25 [facility] 17:57:00 Systolic (mm Hg) 2017-06-25 [facility] 17:57:00 Diastolic (mm Hg) 2017-06-25 [facility] 17:57:00 Respitory Rate 2017-06-25 [facility] 14:01:00 Systolic (mm Hg) 2017-06-25 [facility] 14:01:00 Diastolic (mm Hg) 2017-06-25 [facility] 14:01:00 Heart Rate 2017-06-25 [facility] n 14:01:00 Temperature Oral 2017-06-25 97.8 F [facility] (F) 14:01:00 Heart Rate 2017-06-25 [facility] 08:51:00 Temperature Oral 2017-06-25 97.9 F [facility] (F) 08:51:00 Respitory Rate 2017-06-25 [facility] 08:51:00 Systolic (mm Hg) 2017-06-25 [facility] 08:51:00 Diastolic (mm Hg) 2017-06-25 [facility] 08:51:00 BMI Calculated 2017-06-24 [facility] 15:26:00 Weight 2017-06-24 [facility] 15:26:00 Height 2017-06-24 175.26 cm [facility] 15:26:00 Weight 2017-06-24 [facility] 11:43:00 Respitory Rate 2017-06-10 [facility] 22:15:00 Systolic (mm Hg) 2017-06-10 [facility] 22:15:00 Diastolic (mm Hg) 2017-06-10 [facility] 22:15:00 Respitory Rate 2017-06-10 [facility] 22:00:00 Systolic (mm Hg) 2017-06-10 [facility] 22:00:00 Diastolic (mm Hg) 2017-06-10 [facility] 22:00:00 Respitory Rate 2017-06-10 [facility] 21:45:00 Systolic (mm Hg) 2017-06-10 [facility] 21:45:00 Diastolic (mm Hg) 2017-06-10 [facility] 21:45:00 Height 2017-06-10 175.26 cm [facility] 16:02:00 BMI Calculated 2017-06-10 [facility] 16:02:00 Weight 2017-06-10 [facility] 16:02:00 Respitory Rate 2016-12-07 [facility] 05:58:00 Heart Rate 2016-12-07 [facility] 05:58:00 Systolic (mm Hg) 2016-12-07 [facility] 05:58:00 Diastolic (mm Hg) 2016-12-07 [facility] 05:58:00 Respitory Rate 2016-12-07 [facility] 05:17:00 Heart Rate 2016-12-07 [facility] 04:45:00 Respitory Rate 2016-12-07 [facility] 04:45:00 Systolic (mm Hg) 2016-12-07 [facility] 04:45:00 Diastolic (mm Hg) 2016-12-07 [facility] 04:45:00 Heart Rate 2016-12-07 [facility] 02:05:00 Systolic (mm Hg) 2016-12-07 [facility] 02:05:00 Diastolic (mm Hg) 2016-12-07 [facility] 02:05:00 Weight 2016-12-07 [facility] 02:05:00 Temperature Oral 2016-11-10 97.1 F [facility] (F) 07:43:00 Respitory Rate 2016-11-10 [facility] 07:04:00 Systolic (mm Hg) 2016-11-10 [facility] 07:04:00 Diastolic (mm Hg) 2016-11-10 [facility] 07:04:00 Systolic (mm Hg) 2016-11-10 [facility] 06:39:00 Diastolic (mm Hg) 2016-11-10 [facility] 06:39:00 Respitory Rate 2016-11-10 [facility] 06:39:00 Systolic (mm Hg) 2016-11-10 [facility] 05:42:00 Diastolic (mm Hg) 2016-11-10 [facility] 05:42:00 Heart Rate 2016-11-10 Sahil Palmeran n 05:42:00 Respitory Rate 2016-11-10 Sahil Palmer shel[place] 05:42:00 Heart Rate 2016-11-10 Sahil Palmeran n 04:19:00 Temperature Oral 2016-11-10 96.2 F Sahil Davis rmann (F) 04:19:00 Heart Rate 2016-11-10 Sahil Palmeran n 01:31:00 Temperature Oral 2016-11-10 96.2 F Sahil Davis rmann (F) 01:31:00 BMI Calculated 2016-11-09 Sahil Palmer shelbie 17:24:00 Weight 2016-11-09 Sahil Rojas n 17:24:00 Height 2016-11-09 175.26 cm Sahil Rojas n 17:24:00 Procedures Procedure Date / Time Performing Clinician Source Performed Arteriovenous graft [facility] [place] CABG x 3 - Coronary [facility] [place] artery bypass grafts x 3<sup>1</sup> History of bypass [facility] Physicians Encounters Start End Encounter Admission Attending Care Care Encounter Source Date/Time Date/Time Type Type Clinicians Facility Department ID 2020-08-19 Inpatient eboni, [facility] [id number] [facility] 13:00:00 Eber [id number] [facility] 2021-07-09 2021-07-09 Abstract Hiro [facility] [id number] Univers 00:00:00 00:00:00 Yadiel Blum MULTISPEC [id number] [place]y [id number] [id number] Maximiliano ramirez [facility] [address] [facility] 2021-06-09 2021-06-09 Office Maico [facility] [id number] Univers 13:31:46 14:05:56 Visit Miroslava MELENDEZ [id number] [id number] [id number] Vt dical NAL 059 [facility] 2021-02-04 2021-02-04 Outpatient MHSE PUL [id number] MH 18:19:00 18:19:00 [facility] 2020-12-10 2020-12-11 [facility] [id number] [facility] 10:53:55 20:10:00 n lois Hernandez [address] [facility] 2020-12-11 2020-12-11 Outpatient E [facility] MED [id number] [facility] 09:58:00 09:58:00 2020-05-28 2020-05-28 Orders Doctor DARIEN [id number] 00:00:00 00:00:00 Only Unassigned, SILVIA [id number] [place] [id number] 2020-05-03 2020-05-03 Orders Doctor DARIEN [id number] 00:00:00 00:00:00 Only Unassigned, SILVIA [id number] [place] [facility] [id number] 2020-04-30 2020-04-30 [facility] [id number] 00:00:00 00:00:00 Yadiel Blum MULTISPEC [id number] [place] [id number] [place] [id number] [facility] 2020-01-31 2020-01-31 [facility] [id number] 00:00:00 00:00:00 Yadiel Blum MULTISPEC 350.1.13.10 IAL[place] 4.2.7.2.686 [place] [id number] [facility] 2020-01-31 2020-01-31 Orders Doctor DARIEN 1.2.840.114 [id number] 00:00:00 00:00:00 Only Unassigned, SILVIA 350.1.13.10 [place] [facility] 4.2.7.2.686 [id number] 2020-01-23 2020-01-23 [facility] DARIEN Gutierrez.2.840.114 [id number] 07:32:22 23:59:00 Encounter Tabby VEGA 350.1.13.10 [facility] 4.2.7.2.686 [id number] 2020-01-23 2020-01-23 Orders Doctor DARIEN 12.840.114 [id number] 00:00:00 00:00:00 Only Unassigned, SILVIA 350.1.13.10 [place] [facility] 4.2.7.2.686 [id number] 2020-01-19 2020-01-19 Abstract [facility] 1.2.351.431 [id number] 00:00:00 00:00:00 [place] A MULTISPEC 350.1.13.10 IALTY 4.2.7.2.686 [place] [id number] [facility] 2019-12-27 2020-01-11 [facility] 1.2.840.114 [id number] 07:58:11 12:47:54 ne Visit Kidney MULTISPEC 350.1.13.10 [place] 4.2.7.2.686 [place] [id number] [facility] 2020-01-11 2020-01-11 Telephone [facility] 1.2.840.114 [id number] 00:00:00 00:00:00 [place] A MULTISPEC 350.1.13.10 [place]AL[place] 4.2.7.2.686 [place] [id number] [facility] 2018-01-10 2018-01-11 [facility] [id number] [facility] 11:36:00 02:00:00 Outpatient r David [address] [facility] 2017-11-17 2017-11-17 [facility] [id number] [place] 14:26:00 23:15:00 Outpatient r David [address] [facility] 2017-11-17 2017-11-17 [facility] [id number] [facility] 17:00:00 17:00:00 [facility] 2017-10-20 2017-10-21 [facility] [id number] [facility] 00:16:00 02:34:00 n lois Hernandez 05 [place] 2017-08-10 2017-08-11 [facility] [id number] [facility] 22:01:00 09:44:00 r Mcfarlan 04 [facility] 2017-07-21 2017-07-21 Appointmen CLARITZA MILNER [place] [id number] [facility] 11:00:00 11:00:00 t; MAHIN MIL[facility] M.D. [facility] 2017-06-30 2017-06-30 Appointmen CLARITZA MILNER [place] [id number] [facility] 11:15:00 11:15:00 t; MAHIN [facility] M.D. [facility] 2017-06-24 2017-06-25 [facility] [id number] [facility] 11:33:00 20:10:00 r Mcfarlan 03 [facility] 2017-06-10 2017-06-11 [facility] [id number] [facility] 15:11:00 04:59:00 Surgery r David 02 [facility] 2017-06-07 2017-06-07 Appointmen ALF, CLARITZA UTP [id number] [facility] 10:45:00 10:45:00 t; MAHIN MILNER [facility] [place], M.D. [place] M[facility] 2017-05-13 2017-05-13 Appointmal VASCULAR, CLARITZA UTP [id number] [facility] 15:00:00 15:00:00 t; YOUNG pulido VASCULAR, [facility] 2017-05-10 2017-05-10 Appointmen ALF, CLARITZA UTP [id number] [facility] 11:00:00 11:00:00 t; MAHIN MILNER [facility] [place] 2016-12-07 2016-12-07 [facility] [id number] [facility] 01:58:00 05:59:00 r Mcfarlan 01 [facility] 2016-11-09 2016-11-10 [facility] [id number] [facility] 17:13:00 07:45:00 r David 00 [facility] Results Test Description Test Time Test Comments Results Result Comments Source CHEM PANEL 2020-12-11 156 [facility] 11:46:00 CHEM PANEL 2020-12-11 51 [facility] 11:46:00 CHEM PANEL 2020-12-11 8.65 [facility] 11:46:00 CHEM PANEL 2020-12-11 136 [facility] 11:46:00 CHEM PANEL 2020-12-11 4.7 [facility] 11:46:00 CHEM PANEL 2020-12-11 101 [facility] 11:46:00 CHEM PANEL 2020-12-11 28 [facility] 11:46:00 CHEM PANEL 2020-12-11 9.0 [facility] 11:46:00 CHEM PANEL 2020-12-11 11.7 [facility] 11:46:00 CHEM PANEL 2020-12-11 6 [facility] 11:46:00 HEMATOLOGY 2020-12-11 78.3 [facility] 11:46:00 HEMATOLOGY 2020-12-11 8.5 [facility] 11:46:00 HEMATOLOGY 2020-12-11 5.5 [facility] 11:46:00 HEMATOLOGY 2020-12-11 4.7 [facility] 11:46:00 HEMATOLOGY 2020-12-11 3.0 [facility] 11:46:00 HEMATOLOGY 2020-12-11 6.5 [facility] nn 11:46:00 HEMATOLOGY 2020-12-11 0.7 [facility] Nay nn 11:46:00 HEMATOLOGY 2020-12-11 0.5 [facility] nn 11:46:00 HEMATOLOGY 2020-12-11 0.4 [facility] N[facility] nn 11:46:00 HEMATOLOGY 2020-12-11 0.2 [facility] 11:46:00 HEMATOLOGY 2020-12-11 8.3 [facility] N[facility] nn 11:46:00 HEMATOLOGY 2020-12-11 3.34 [facility] nn 11:46:00 HEMATOLOGY 2020-12-11 11.1 [facility] nn 11:46:00 HEMATOLOGY 2020-12-11 32.8 [facility] N[facility] nn 11:46:00 HEMATOLOGY 2020-12-11 98.3 [facility] Nay nn 11:46:00 HEMATOLOGY 2020-12-11 11:46:00 Test Item Value Reference Range Interpretation Comme nts MCH (test code = MCH) 33.3 pg 27.0-31.0 [facility] VxsifyuHGKUWERVYK5506-77-73 11:46:0033.9[facility]annHEMATOLOGY 2020-12-11 11:46:0016.5[facility] ElusybzDTPMYDBQYZ6629-96-44 11:46:74973Xsonwwjl AlkpctxJPMBMAHADM1095-14-47 11:46:009.2[facility] HermannCHEM HUEAN1449-62-66 11:46:56329Rzrcnatd HermannCHEM RLWLG9527-42-22 11:46:0051[facility] HermannCHEM BHFPF4266-24-72 11:46:008.65[facility]annCHEM SIVNO3609-45-37 11:46:64095 [facility]annCHE[facility] NNZVS6150-98-40 11:46:004.7[facility] HermannCHEM PANEL 2020-12-11 11:46:15811Shctbhwu HermannCHEM NUGYJ5943-75-03 11:46:0028[facility]annCHEM MKZZX7026-60-81 11:46:009.0[facility]annCHEM GTWHB1947-51-25 11:46:0011.7[facility]annCHEM IBDEU5044-48-18 11:46:006[facility] LDSPAFFMUU0926-04-25 11:46:0078.3[facility] NiicumaXHOKDBFBKE2634-79-81 11:46:00 8.5[facility] KjtabzuIVCWDDCNMN2388-84-31 11:46:005.5[facility] HermannHEMATOLOGY 2020-12-11 11:46:004.7[facility] VipithnEXUOVAKIEC9954-51-87 11:46:003.0[facility] JfhkxlnPQOELMRSUZ8024-45-77 11:46:006.5[facility] ToutuddAULXKKCTIU0566-91-00 11:46:000.7[facility] FjitomvIDCIYEZBTK9813-33-52 11:46:000.5[facility] GSGLXEPNSL6657-81-57 11:46:000.4[facility] QbxdfboKJSOJESYGX5405-01-61 11:46:000.2 [facility] TyzjamiVUUYURBOUN8069-49-98 11:46:008.3[facility] HermannHEMATOLOGY 2020-12-11 11:46:003.34[facility] AlqwgwyJAIMUXTRRN5952-31-22 11:46:0011.1[facility] FyjhfdpCIOWRANSLR1882-52-01 11:46:0032.8[facility] ArtzegnOSERFGENIM9893-27-63 11:46:0098.3[facility] IqdswfqMUJWPXOJHY0659-97-56 11:46:00 Test Item Value Reference Range Interpretation Comments MCH (test code = MCH) 33.3 pg 27.0-31.0 [facility] GmabvbiJLNKQFVIIV5779-54-22 11:46:0033.9[facility] HermannHEMATOLOGY 2020-12-11 11:46:0016.5[facility] QlnxucrXWQLQIFMXM6187-10-67 11:46:92869Hfqxqvdv TrvdhfeEFIYTTTYIC9580-23-31 11:46:009.2[facility] HermannCHEM VBNCF8362-55-44 11:46:54643Umrbkqhv HermannCHEM RTSIO9056-96-82 11:46:0051[facility] HermannCHEM NTHEN0550-38-74 11:46:008.65[facility] HermannCHEM YACZP3826-57-62 11:46:61199 [facility]annCHEM PFONU0940-20-41 11:46:004.7[facility] HermannCHEM PANEL 2020-12-11 11:46:68088Ekafkdcs HermannCHEM MMGFE8644-56-10 11:46:0028[facility] HermannCHEM BHCBN3889-42-55 11:46:009.0[facility] HermannCHEM ZPTXF9297-22-24 11:46:0011.7[facility] HermannCHEM BFEIN2068-68-99 11:46:006[facility] WJIBACVTTQ6153-32-60 11:46:0078.3[facility] RnmihaiEVZEQIKAZG5113-28-87 11:46:00 8.5[facility] ChmebezNTUUMMMSMW9372-96-23 11:46:005.5[facility] HermannHEMATOLOGY 2020-12-11 11:46:004.7[facility] SrmnycyIORWENYKVW2272-38-52 11:46:003.0[facility] GhrtrctQJHVZLSSGU5153-03-65 11:46:006.5[facility] XqfooqlJUSCDRBWSN5611-05-73 11:46:000.7[facility] LolinjbLMVSWCHGAK6396-28-78 11:46:000.5[facility] VYYCASSBWQ2178-12-69 11:46:000.4[facility] XomafisHPOSSRQTJW7352-48-28 11:46:000.2 [facility] LedakkxYYEKCCHOJX6233-54-08 11:46:008.3[facility] HermannHEMATOLOGY 2020-12-11 11:46:003.34[facility] GlkxshxKAOCMQJRFH3448-10-56 11:46:0011.1[facility] YejtcpyZZAGTLCHFP5108-42-85 11:46:0032.8[facility] AzodwftZKEVRVOORF5554-27-98 11:46:0098.3[facility] LpwsrpgOYNTLFSEGE1548-39-84 11:46:00 Test Item Value Reference Range Interpretation Comments MCH (test code = MCH) 33.3 pg 27.0-31.0 [facility] VlphopbKXOOXDWDWU8882-56-61 11:46:0033.9[facility] HermannHEMATOLOGY 2020-12-11 11:46:0016.5[facility] MmbaisuGCFLEYLCEM7119-16-39 11:46:70668Cbuzwnag CbekbwhZDSNOJWNWE3805-19-19 11:46:009.2[facility] HermannCHEM PCRCX4373-06-41 11:46:50763Gieylhpd HermannCHEM DPMQP2946-35-15 11:46:0051[facility] HermannCHEM UWCMW9612-90-63 11:46:008.65[facility] HermannCHEM JKLOG9125-80-91 11:46:46594 [facility] HermannCHEM LIYCM5715-02-71 11:46:004.7[facility] HermannCHEM PANEL 2020-12-11 11:46:77120Tmcbbuta HermannCHEM HDLWD3794-04-04 11:46:0028[facility] HermannCHEM LKUKA3447-71-81 11:46:009.0[facility] HermannCHEM EUDJT3210-17-57 11:46:0011.7[facility] HermannCHEM POVTH7889-67-58 11:46:006[facility] OFSHMKABLU5162-93-19 11:46:0078.3[facility] WdutmysLRCBUDDWYD2081-41-79 11:46:00 8.5[facility] YrjimilYYGBNQQPFO9685-16-78 11:46:005.5[facility] HermannHEMATOLOGY 2020-12-11 11:46:004.7[facility] DuluagiZFCMSNYQPD3107-56-04 11:46:003.0[facility] SyoeokdZICKKRPGJI8757-75-91 11:46:006.5[facility] ApbucfzSCQRWPMMQB0205-44-81 11:46:000.7[facility] HwqiijyGFPNSCYFPI3558-47-71 11:46:000.5[facility] OFJWXMXCUE1222-84-67 11:46:000.4[facility] NhqzrnwIZZJZJKOLH6648-84-47 11:46:000.2 [facility] GrreqpbLWBFCMXIRB1314-96-74 11:46:008.3[facility] HermannHEMATOLOGY 2020-12-11 11:46:003.34[facility] TcyukzhJAATCWFAHL4623-99-99 11:46:0011.1[facility] BfefxwiNFKXXEEWYQ9543-62-85 11:46:0032.8[facility] XbnvyjjVYRFNQZEWH4902-14-18 11:46:0098.3[facility] WyhavrfPYQIFQLKWT8766-14-98 11:46:00 Test Item Value Reference Range Interpretation Comments MCH (test code = MCH) 33.3 pg 27.0-31.0 [facility] DngxeckDGWHLZEOMA6192-28-44 11:46:0033.9[facility] HermannHEMATOLOGY 2020-12-11 11:46:0016.5[facility] KkhkzuzVPUMXKWMSM0759-67-27 11:46:15444Bgtwfwsf YbisltlQZUDHHPFWL4994-28-59 11:46:009.2[facility] HermannCHEM STYFU9025-33-82 11:46:46022Ilqapyum HermannCHEM JIJFP9895-10-69 11:46:0051[facility] HermannCHEM VUAGV3699-28-60 11:46:008.65[facility] HermannCHEM HPDRP3004-42-76 11:46:44976 [facility] HermannCHEM CBQAW4385-21-09 11:46:004.7[facility] HermannCHEM PANEL 2020-12-11 11:46:16940Egpzixsl HermannCHEM UDIID4111-60-43 11:46:0028[facility] HermannCHEM ITUCE7490-90-51 11:46:009.0[facility] HermannCHEM EVACG5239-46-70 11:46:0011.7[facility] HermannCHEM OLASL2743-91-20 11:46:006[facility] IUTITMLAOB3777-48-33 11:46:0078.3[facility] LcutiuaUQKCSWJXTS6284-37-19 11:46:00 8.5[facility] EbmmawpJTRAWWSPNP3921-38-77 11:46:005.5[facility] HermannHEMATOLOGY 2020-12-11 11:46:004.7[facility] DzfbcjmOQWOEWXJUO6095-40-40 11:46:003.0[facility] QzlpkooECQHJAQDQY6454-08-31 11:46:006.5[facility] OmaqtqsTZBITPCVMB2794-16-66 11:46:000.7[facility] WplkoctWDZPLZYMRO4946-29-40 11:46:000.5[facility] VJXAUAQWCJ6665-46-47 11:46:000.4[facility] TuiygclADDSDXJLBE9324-85-18 11:46:000.2 [facility] VhtpeafMZFDZEZVDE3294-92-89 11:46:008.3[facility] HermannHEMATOLOGY 2020-12-11 11:46:003.34[facility] CfutxreBMVURVMMWJ3080-73-35 11:46:0011.1[facility] OnpgekwTJETMUBRWO5794-84-31 11:46:0032.8[facility] ZwlhzcwQIVMQJHBIT3117-60-12 11:46:0098.3[facility] CkuntxcNGQQCRFXGL9653-32-01 11:46:00 Test Item Value Reference Range Interpretation Comments MCH (test code = MCH) 33.3 pg 27.0-31.0 [facility] OdhcrleUMXZSVFQGL5227-72-54 11:46:0033.9[facility] HermannHEMATOLOGY 2020-12-11 11:46:0016.5[facility] QeemlmkAPCADMEILS8553-64-88 11:46:05964Ebbmhlvo HwossbhHMLRFUMGDL7201-95-07 11:46:009.2[facility] HermannCHEM WUIRZ2125-58-17 11:46:78896Ictpzjjl HermannCHEM KVAFK7995-40-15 11:46:0051[facility] HermannCHEM SCXJY3670-91-03 11:46:008.65[facility] HermannCHEM IXTVV6730-97-05 11:46:18584 [facility] HermannCHEM APWHS7611-38-66 11:46:004.7[facility] HermannCHEM PANEL 2020-12-11 11:46:31691Sqmlrnub HermannCHEM HMFKO5966-89-14 11:46:0028[facility] HermannCHEM GYOVT4275-96-11 11:46:009.0[facility] HermannCHEM KIVWQ6968-02-00 11:46:0011.7[facility] HermannCHEM MWMLM3951-17-23 11:46:006[facility] WCRYJKRLUC8059-89-50 11:46:0078.3[facility] EstfqyhOKQTXFZRIV9550-50-95 11:46:00 8.5[facility] LhjtmnkYHWBUAUHBL5631-31-04 11:46:005.5[facility] HermannHEMATOLOGY 2020-12-11 11:46:004.7[facility] DvybkcvXKSHKDVINQ5592-04-71 11:46:003.0[facility] NpzasieBHYIGHZOPG5958-74-51 11:46:006.5[facility] TduudzjGWGGBTWXKU2539-25-54 11:46:000.7[facility] NpyqamgHQMJVRSUTE7622-69-22 11:46:000.5[facility] EMSIZIMBPO3173-46-63 11:46:000.4[facility] LarwxnjWQPYGKCUCV0934-16-74 11:46:000.2 [facility] BhbrnpqLEFBKMKQMN4774-67-55 11:46:008.3[facility] HermannHEMATOLOGY 2020-12-11 11:46:003.34[facility] VbtjegaUWECCNWUWC7969-95-43 11:46:0011.1[facility] XydvzriLEQXGLBLQF5814-32-57 11:46:0032.8[facility] ReolwevEXVOVKVTHX6220-40-29 11:46:0098.3[facility] TttsgtkNHSCVFUAES6500-63-31 11:46:00 Test Item Value Reference Range Interpretation Comments MCH (test code = MCH) 33.3 pg 27.0-31.0 [facility] YfyorxoVSBINTBFGQ7641-26-08 11:46:0033.9[facility] HermannHEMATOLOGY 2020-12-11 11:46:0016.5[facility] WktxcpxRAWZBPZSTI0791-91-03 11:46:11938Yqrkxnla NagowoeGFWRQPZZGA3753-36-11 11:46:009.2[facility] HermannCHEM ARYLO9103-70-58 11:46:06055Itcbfjpu HermannCHEM ZPITK4338-73-25 11:46:0051[facility] HermannCHEM IHDCP5714-01-34 11:46:008.65[facility] HermannCHEM NCKMH9523-14-01 11:46:29488 [facility]annCHEM HPYYD8318-60-75 11:46:004.7[facility] HermannCHEM PANEL 2020-12-11 11:46:76441Qmjckzwk HermannCHEM JZDVA2704-25-67 11:46:0028[facility] HermannCHEM HWLBY2963-80-43 11:46:009.0[facility] HermannCHEM QVVOL3543-54-82 11:46:0011.7[facility] HermannCHEM XSVKS9313-93-79 11:46:006[facility] TOEAXCXIZU8303-74-77 11:46:0078.3[facility] RjxliaaAOZSEDIFGA8667-04-27 11:46:00 8.5[facility] LgdqmkaSYSEDVXIPL6849-89-93 11:46:005.5[facility] HermannHEMATOLOGY 2020-12-11 11:46:004.7[facility] JagtkqfPVWMIWMCWN1557-54-27 11:46:003.0[facility] DodvuzeCMWMPDYHFU0562-64-10 11:46:006.5[facility] MxlrfzgJMHRWCRTGG8290-48-58 11:46:000.7[facility] BszistxWGHIZVCSRC7907-71-02 11:46:000.5[facility] UGGROUIMDB2141-38-19 11:46:000.4[facility] XuiwaryQMCHHVSQNU2966-47-60 11:46:000.2 [facility] SjglkwrIPJGZIAOSH6668-72-33 11:46:008.3[facility] HermannHEMATOLOGY 2020-12-11 11:46:003.34[facility] ThozbsrQVQIQFMKYH5278-26-67 11:46:0011.1[facility] EcgfolqORCUMHWVCC0761-99-00 11:46:0032.8[facility] BebrhrbGJUECMSHIL6361-12-49 11:46:0098.3[facility] SinheokTIQHSEJZGB3210-11-50 11:46:00 Test Item Value Reference Range Interpretation Comments MCH (test code = MCH) 33.3 pg 27.0-31.0 [facility] KnytiisKGTIQNUZMO4047-72-13 11:46:0033.9[facility] HermannHEMATOLOGY 2020-12-11 11:46:0016.5[facility] ThfmbgmGOYNZZKJTF9132-03-29 11:46:62655Bwydssou FxzvsquIWXQIQABBC5583-85-02 11:46:009.2[facility] HermannCHEM ODAAS1893-58-06 11:46:45808Erqgrchu HermannCHEM KCOGG4239-63-10 11:46:0051[facility] HermannCHEM SBZPY7256-85-29 11:46:008.65[facility] HermannCHEM GOUEY3876-85-82 11:46:51341 [facility]annCHEM IQXJQ8213-75-14 11:46:004.7[facility] HermannCHEM PANEL 2020-12-11 11:46:30847Rtyjqhsw HermannCHEM XGVMA4715-45-38 11:46:0028[facility] HermannCHEM GNJAU9552-07-31 11:46:009.0[facility] HermannCHEM ZRNXH4912-83-83 11:46:0011.7[facility] HermannCHEM JQAIT0531-63-78 11:46:006[facility] YTKOKMNUVG6699-42-10 11:46:0078.3[facility] TmymmlwPIADGRBJCZ2944-06-96 11:46:00 8.5[facility] CmtxpsbOMTTZQBCHF1721-52-96 11:46:005.5[facility] HermannHEMATOLOGY 2020-12-11 11:46:004.7[facility] HlvcfzaCSCIOBRWMN1374-56-81 11:46:003.0[facility] CnfosjfZOPMLBKRXX7785-61-62 11:46:006.5[facility] FvjivfpXJLJQUXXHX0659-48-53 11:46:000.7[facility] PryfmuoLLVHERCFOF7011-19-05 11:46:000.5[facility] LFXBHVHXYL3121-71-05 11:46:000.4[facility] VbllcdwPGNCNNMNRB9754-92-15 11:46:000.2 [facility] UbwzublOSBUAOPINV8913-94-79 11:46:008.3[facility] HermannHEMATOLOGY 2020-12-11 11:46:003.34[facility] LpcpnkaRRZWDNTHUK9144-83-68 11:46:0011.1[facility] PanhykjJLXHLMDHOW2170-27-19 11:46:0032.8[facility] JqlucgkWPQUONKCUN0819-96-26 11:46:0098.3[facility] SioekhqLVKRTQFDEE1455-60-11 11:46:00 Test Item Value Reference Range Interpretation Comments MCH (test code = MCH) 33.3 pg 27.0-31.0 [facility] OiordisOJQIHEDFCV8334-95-47 11:46:0033.9[facility] HermannHEMATOLOGY 2020-12-11 11:46:0016.5[facility] RcusqwyGMRYRXTFEP4215-31-83 11:46:08820Qiolnymv TcelsujEVFVKCXVCV0251-92-86 11:46:009.2[facility] HermannCHEM UWAAP7381-98-33 11:46:50862Ijnyejpa HermannCHEM VHVAS2706-70-38 11:46:0051[facility] HermannCHEM UHYQR9026-08-85 11:46:008.65[facility] HermannCHEM QABIM0853-28-37 11:46:07410 [facility]annCHEM MEVWI0905-75-46 11:46:004.7[facility] HermannCHEM PANEL 2020-12-11 11:46:03093Hxoyvzcr HermannCHEM AJZHP8654-29-40 11:46:0028[facility] HermannCHEM OLDWH1787-27-87 11:46:009.0[facility] HermannCHEM WZEDP0011-66-70 11:46:0011.7[facility] HermannCHEM LCLKK5116-21-54 11:46:006[facility] GTJDIJPOMY9593-88-73 11:46:0078.3[facility] BsrmnnwODIMLBURIB3651-58-88 11:46:00 8.5[facility] XsxknstWWYWRRJIEN4245-38-91 11:46:005.5[facility] HermannHEMATOLOGY 2020-12-11 11:46:004.7[facility] FfbosfeRKVUCCUOWA1375-39-87 11:46:003.0[facility] MeebasfLZOAJCDUGL4541-42-18 11:46:006.5[facility] HdozxwzRUUQEFDVUW3040-88-15 11:46:000.7[facility] MubgarlUFAVMWDCFO7078-20-63 11:46:000.5[facility] LICMCFZEDZ4807-12-09 11:46:000.4[facility] OyrflxeWZOJZSEXWQ1900-65-55 11:46:000.2 [facility] NwqksmnXUEKILZYUD5019-77-32 11:46:008.3[facility] HermannHEMATOLOGY 2020-12-11 11:46:003.34[facility] AxfkaivJYQQSZAHCN8512-25-64 11:46:0011.1[facility] LdsuenyTOGXRHOWRP1237-88-45 11:46:0032.8[facility] BoczckwOAKBPSNKFY8012-50-06 11:46:0098.3[facility] KarcbzfPNPTRYVFUI1707-55-23 11:46:00 Test Item Value Reference Range Interpretation Comments MCH (test code = MCH) 33.3 pg 27.0-31.0 [facility] RkkeqdaYQLISQFRXV3542-94-97 11:46:0033.9[facility] HermannHEMATOLOGY 2020-12-11 11:46:0016.5[facility] OzcbjjkUKRTYAJKMQ0905-67-37 11:46:44970Fsmrotev YnfbuxbPNAYHTGJYX6020-51-01 11:46:009.2[facility] HermannCARDIAC STGHSOB5488-73-41 00:45:000.19[facility] YfiuackQDXEUGHRZQ9638-95-76 00:45:00Negative *NA*(12/10/20 7:45 PM)[facility] HermannCARDIAC MFWGVPI9719-16-41 00:45:000.[facility] HBMUJJIDFM7849-96-55 00:45:00Negative *NA*(12/10/20 7:45 PM)[facility] CARDIAC VLFJEMI5250-44-30 00:45:000.[facility] NtjfpghVAZHATDKUQ0318-71-87 00:45:00Negative *NA*(12/10/20 7:45 PM)[facility] UFSACRA6121-80-25 00:45:000.[facility] RydoojuPQCFVQUMHB4345-57-86 00:45:00Negative *NA*(12/10/20 7:45 PM)[facility] BSAAXHI0423-70-17 00:45:000.[facility] FNPACNPMCV5852-83-00 00:45:00Negative *NA*(12/10/20 7:45 PM)[facility] CARDIAC JFSNPXS5438-04-16 00:45:000.19[facility] LaxvojsRVIXEJBTXS3280-27-95 00:45:00Negative *NA*(12/10/20 7:45 PM)[facility] WIJKHTA4666-24-16 00:45:000.19[facility] BiyejclCFGNKSVMJV8428-94-67 00:45:00Negative *NA*(12/10/20 7:45 PM)[facility] XYGCQHS4480-03-30 00:45:000.19[facility] GVGUFRYTVU9673-56-57 00:45:00Negative *NA*(12/10/20 7:45 PM)[facility] CARDIAC ZWMFDDH1466-16-32 00:45:000.19[facility] LpakjguOZMBZTMZWZ1840-15-39 00:45:00Negative *NA*(12/10/20 7:45 PM)[facility] ZUYYXTP5709-32-58 23:51:000.20[facility] WYFVYOO8344-21-50 23:51:000.20[facility] WFJSKGW8135-45-88 23:51:000.20[facility] ENZYMES 2020-12-10 23:51:000.20[facility] HGEDKSJ8465-24-40 23:51:000.20 [facility] YVBCKNA9981-95-47 23:51:000.20[facility] HCQOKXF4856-32-48 23:51:000.20[facility] ODOMJOR0961-48-73 23:51:00 0.20[facility] JCOIWUD6910-30-60 23:51:000.20[facility] YILJKKKAFS9286-71-99 23:30:30Not Detected (12/10/20 6:30 PM)[facility] PLQEJCFUDI5477-54-71 23:30:30Not Detected (12/10/20 6:30 PM)[facility] CLOOESOUJF4979-71-80 23:30:30Not Detected (12/10/20 6:30 PM)[facility] JCSNEOAPLU8624-99-60 23:30:30Not Detected (12/10/20 6:30 PM)[facility] NVDCNZWOBC8855-14-83 23:30:30Not Detected (12/10/20 6:30 PM)[facility] NGLAEHRLQI1619-25-67 23:30:30Not Detected (12/10/20 6:30 PM)[facility] QIOLKZGCBE3694-44-55 23:30:30Not Detected (12/10/20 6:30 PM)[facility] ZBDQGFXKPT0231-75-11 23:30:30Not Detected (12/10/20 6:30 PM)[facility] AWYCQSEAEK4968-15-20 23:30:30Not Detected (12/10/20 6:30 PM)[facility] CARDIAC YFSWNLP7849-31-46 15:48:000.10[facility] YVVQNCS1712-40-14 15:48:000.10[facility] PRDRTRU1853-94-21 15:48:000.10[facility] FIMTFMX4887-48-66 15:48:000.10[facility] ENZYMES 2020-12-10 15:48:000.10[facility] EOYNBNR2710-77-98 15:48:000.10 [facility] YGKQGYX1887-03-40 15:48:000.10[facility] UESOOLX5959-43-67 15:48:000.10[facility] LWMNKXT7657-70-50 15:48:00 0.10[facility]annCHE[facility] PTLWO0981-47-30 13:08:38548Bevbasww HermannCHEM PANEL 2020-12-10 13:08:0062[facility]annCHE[facility] GNQHY1840-71-08 13:08:0010.00[facility]annCHE[facility] GPFWR3906-97-60 13:08:53202Sjfgeldv HermannCHEM EFNQX7933-13-25 13:08:004.5[facility]annCHE[facility] FKHHP9764-25-08 13:08:13308Ltiwfetf HermannCHEM OOJGC2927-88-33 13:08:0027[facility]annCHE[facility] DYMPC3460-65-06 13:08:009.3 [facility] VSURK1199-61-85 13:08:007.6[facility]annCHEM PANEL 2020-12-10 13:08:003.7[facility]annCHE[facility] HVIIG9138-17-73 13:08:0024[facility]annCHE[facility] XSSVP1792-86-95 13:08:0016[facility]annCHE[facility] GOLYL2630-96-69 13:08:14775Gtpqgclu HermannCHEM UBJRX5230-52-42 13:08:000.4[facility]annCHE[facility] NUPBB0603-07-03 13:08:0014.5[facility]annCHE[facility] USZGA3943-02-37 13:08:00 Test Item Value Reference Range Interpretation Comments B/C Ratio (test code = B/C Ratio) 6 1 6-25 [facility] XUJIN4395-29-22 13:08:003.9[facility]annCHE[facility] PANEL 2020-12-10 13:08:00 Test Item Value Reference Range Interpretation Comments A/G Ratio (test code = A/G Ratio) 0.9 1 0.7-1.6 [facility] PRLTA9172-27-01 13:08:005[facility]annHEMATOLOGY 2020-12-10 13:08:008.3[facility] HacerheJLYVWYTNVG4309-47-72 13:08:003.45[facility] VnwrpypMBVHWINWHX5772-16-37 13:08:0011.6[facility] IhrajylHXILFBMFWT9251-19-15 13:08:0034.0[facility] IxugsndBTUJQAGSOD9555-28-86 13:08:0098.7[facility] BXVOOEOWDO7815-91-84 13:08:00 Test Item Value Reference Range Interpretation Comments MCH (test code = MCH) 33.7 pg 27.0-31.0 [facility] XbqosjnLKCATJXCJN1945-02-56 13:08:0034.1[facility]annHEMATOLOGY 2020-12-10 13:08:0016.4[facility] ExkfstxQOQFUQBMPV8945-82-47 13:08:33895Qasbvpuz UkgenwzHHEGIISLRQ1319-62-30 13:08:008.5[facility] DfilhriTSLQBODDCH0710-31-98 13:08:0064.6[facility] GokljzuAHTWBZTFDX4714-20-21 13:08:0015.9[facility] HFOSNQQVOV2575-68-19 13:08:006.6[facility] ZcfdhyjNDEZHUFBAX4585-37-45 13:08:00 12.0[facility] MtzcesvPQAIIDGOBN4294-16-60 13:08:000.9[facility]annHEMATOLOGY 2020-12-10 13:08:005.4[facility] AyjreadLNCGAXNYMZ0894-95-53 13:08:001.3[facility] ZszcbyuPUFCIBMCSA1955-24-67 13:08:000.5[facility] PobqsbuVEXXYFECYT9053-85-85 13:08:001.0[facility] SckpgpnUEYTTBCFGA3187-02-07 13:08:000.1[facility]annCHEM TNCCX4027-12-15 13:08:80487Mjycuzgf HermannCHEM XGQMF0785-47-28 13:08:0062 [facility]annCHE[facility] UBCKC2690-39-56 13:08:0010.00[facility]annCHEM PANEL 2020-12-10 13:08:93052Pffvunew HermannCHEM ZCSKK9219-41-96 13:08:004.5[facility]annCHEM VZYCT0503-03-43 13:08:05764Lobxdwou HermannCHEM SSNGQ1080-15-36 13:08:0027[facility]annCHE[facility] ZMMNM3824-23-82 13:08:009.3[facility]annCHE[facility] DLGZB9858-92-13 13:08:007.6[facility]annCHEM ICZYZ7046-53-18 13:08:003.7 [facility]CHE[facility] XRNYW5870-62-31 13:08:0024[facility]annCHEM PANEL 2020-12-10 13:08:0016[facility]annCHEM VANWA7394-33-14 13:08:91296Edzlldmc HermannCHEM UEXMU7957-58-50 13:08:000.4[facility]annCHEM ODAQD5853-00-29 13:08:0014.5[facility]annCHEM WJQVG6978-56-58 13:08:00 Test Item Value Reference Range Interpretation Comments B/C Ratio (test code = B/C Ratio) 6 1 6-25 [facility]CHE[facility] GFSKX1259-46-15 13:08:003.9[facility]annCHEM PANEL 2020-12-10 13:08:00 Test Item Value Reference Range Interpretation Comments A/G Ratio (test code = A/G Ratio) 0.9 1 0.7-1.6 [facility]CHE[facility] OOZRC3033-14-96 13:08:005[facility]annHEMATOLOGY 2020-12-10 13:08:008.3[facility] LpmasvlDBBMPFBNHL3428-75-54 13:08:003.45[facility] OtprjioIMAYSTTIEE3670-83-65 13:08:0011.6[facility] HlpqemwPLYPPVGINO8666-20-34 13:08:0034.0[facility] HrjtbhpDLMMVJZJJQ9619-80-53 13:08:0098.7[facility] MLXEFWVQSZ0703-52-62 13:08:00 Test Item Value Reference Range Interpretation Comments MCH (test code = MCH) 33.7 pg 27.0-31.0 [facility] GlhwcsjLRHVVHOCHN3001-50-87 13:08:0034.1[facility]MAT[facility] 2020-12-10 13:08:0016.4[facility] AyprtfoZFUCUKRSKT6695-25-26 13:08:84414Eyanahtd NdsvzuoKGAXQLYBFN0390-11-07 13:08:008.5[facility] JwxnsudONQPSFVNIN8474-68-73 13:08:0064.6[facility] HaisagzIGFLHCJZHX2917-06-80 13:08:0015.9[facility] TOSDBHJXBP4683-04-05 13:08:006.6[facility] AlhbyfvZCPJUPTAXU6368-85-43 13:08:00 12.0[facility] XffpucbPBLKJJOQSP7052-16-77 13:08:000.9[facility]annHEMATOLOGY 2020-12-10 13:08:005.4[facility] HhcooplOTOGZVDTOM2791-76-75 13:08:001.3[facility] LwgaqoeXISHZUAJUE3479-88-72 13:08:000.5[facility] IdgngaeXLPNTXTNQQ7113-55-49 13:08:001.0[facility] LyurkxjHUDUCMSUGZ3050-06-31 13:08:000.1[facility]annCHEM VWGNQ5195-03-81 13:08:58799Nybmhdge [facility]annCHE[facility] QSYFM6245-83-43 13:08:0062 [facility] THMAH1305-10-50 13:08:0010.00[facility]annCHEM PANEL 2020-12-10 13:08:70935Ucdkhotk [facility] RRBMV5141-49-76 13:08:004.5[facility]annCHE[facility] YUNOX1938-66-73 13:08:42155Otdmdwzl [facility] BCLCR6552-69-45 13:08:0027[facility] NOCLJ9974-48-12 13:08:009.3[facility] RFZDT0386-25-34 13:08:007.6[facility] QHEOE4826-73-59 13:08:003.7 [facility] XOULW0398-91-19 13:08:0024[facility]annCHE[facility] PANEL 2020-12-10 13:08:0016[facility]annCHE[facility] HFPLH8734-16-26 13:08:63226Phbwakmo [facility]annCHE[facility] ETQRW8306-66-92 13:08:000.4[facility]CHE[facility] UHPNS6741-45-58 13:08:0014.5[facility]annCHE[facility] ISOTM3609-36-53 13:08:00 Test Item Value Reference Range Interpretation Comments B/C Ratio (test code = B/C Ratio) 6 1 6-25 [facility] UDDYC2354-34-23 13:08:003.9[facility]annCHE[facility] PANEL 2020-12-10 13:08:00 Test Item Value Reference Range Interpretation Comments A/G Ratio (test code = A/G Ratio) 0.9 1 0.7-1.6 [facility] GWVXA5892-92-42 13:08:005[facility]annHEMATOLOGY 2020-12-10 13:08:008.3[facility] KyzctafWSFBQNQYMO2608-08-42 13:08:003.45[facility] AevgsfdLNDFCYTYGO8007-29-43 13:08:0011.6[facility] VuoblcfYXVENBHNQB7073-54-98 13:08:0034.0[facility] HnqjuugBIJCLTXHDJ4558-25-67 13:08:0098.7[facility] ZMRVSUQGKZ7856-33-11 13:08:00 Test Item Value Reference Range Interpretation Comments MCH (test code = MCH) 33.7 pg 27.0-31.0 [facility] LluinmzNLSMHNYVGZ2192-33-94 13:08:0034.1[facility]annHEMATOLOGY 2020-12-10 13:08:0016.4[facility] GweodskSTXSBSTLRX0682-39-62 13:08:94311Ggbosnfe TzjnnbtJTORZMCUXZ2342-37-67 13:08:008.5[facility] OvmnlhhSFRDUWOLCT8318-04-94 13:08:0064.6[facility] ZvnatfzVMPTPVKPXC7231-12-48 13:08:0015.9[facility] DMDTSAJXRA4922-37-72 13:08:006.6[facility] EyvphvjMLGLPMIPJO4417-59-85 13:08:00 12.0[facility] OcqlsvnZIDPLLWCRY5484-63-77 13:08:000.9[facility]annHEMATOLOGY 2020-12-10 13:08:005.4[facility] PktekiiAIKWGSPJUS2524-00-67 13:08:001.3[facility] BeultqoHTLECTZUBT9703-28-23 13:08:000.5[facility] RgunizhXNQOLIGUXS5809-89-97 13:08:001.0[facility] ZhgjipzJHWYRFWSFN8831-29-21 13:08:000.1[facility]annCHEM POKVV6491-44-55 13:08:18769Synvhiwq [facility]annCHE[facility] YZUDC5947-61-15 13:08:0062 [facility]CHE[facility] VUDHR2354-08-58 13:08:0010.00[facility]annCHEM PANEL 2020-12-10 13:08:61874Ewfullxo [facility]CHE[facility] JAJLZ3213-11-18 13:08:004.5[facility]annCHE[facility] QTPCF2295-61-20 13:08:06753Jsbnfjyb [facility]CHE[facility] ZVQGA4636-16-97 13:08:0027[facility]annCHE[facility] CKWVN5244-55-45 13:08:009.3[facility]annCHE[facility] EHSER7548-59-95 13:08:007.6[facility]annCHE[facility] ZUQOM9079-56-11 13:08:003.7 [facility]CHE[facility] IMFTQ8003-96-71 13:08:0024[facility]annCHE[facility] PANEL 2020-12-10 13:08:0016[facility]annCHE[facility] PQKCX7806-74-58 13:08:79514Uiqciaid [facility]annCHE[facility] HWLKL6832-77-61 13:08:000.4[facility]annCHE[facility] EUTRD7093-41-07 13:08:0014.5[facility]annCHEM GYONT5055-93-77 13:08:00 Test Item Value Reference Range Interpretation Comments B/C Ratio (test code = B/C Ratio) 6 1 6-25 [facility] UAYFV2117-69-37 13:08:003.9[facility]annCHEM PANEL 2020-12-10 13:08:00 Test Item Value Reference Range Interpretation Comments A/G Ratio (test code = A/G Ratio) 0.9 1 0.7-1.6 [facility]CHE[facility] UYOYD4665-47-21 13:08:005[facility]annHEMATOLOGY 2020-12-10 13:08:008.3[facility] EwzlfztBPLSTEBISC5596-17-98 13:08:003.45[facility] MecraauLTMNNEAXRJ8672-87-67 13:08:0011.6[facility] AkoeuxjDEIEXNOPNZ2317-52-87 13:08:0034.0[facility] ZhftlfvHNYJSMLWBB2515-24-13 13:08:0098.7[facility] BDTXTZHCSC3303-69-03 13:08:00 Test Item Value Reference Range Interpretation Comments MCH (test code = MCH) 33.7 pg 27.0-31.0 [facility] IocststDMAAOEFKYF2365-07-18 13:08:0034.1[facility]annHEMATOLOGY 2020-12-10 13:08:0016.4[facility] EkdryebFHWAILGGGC0555-18-13 13:08:25647Luywzjyg AuphvkkEXYJTNWEEW6520-64-33 13:08:008.5[facility] FgbnopdNTOQNLDLQO9565-49-19 13:08:0064.6[facility] GkcxshyOCTKMCQNGB8440-15-15 13:08:0015.9[facility] EJLNAPCYAB2623-96-17 13:08:006.6[facility] CbddhvuINCBBFKQOT5336-94-47 13:08:00 12.0[facility] NoscztsHKMNKSQOXW5499-42-59 13:08:000.9[facility]annHEMATOLOGY 2020-12-10 13:08:005.4[facility] MoemqeySLZMAZKVXL1246-46-48 13:08:001.3[facility] GjuqaerWUOQXNYFFU7349-19-45 13:08:000.5[facility] GefmbhoHMBJQZVICA4669-99-24 13:08:001.0[facility] ZjtpcjfJETXVJPOOW0539-39-64 13:08:000.1[facility]annCHE[facility] VSVSF5653-47-13 13:08:71676Azyecbxy [facility]annCHE[facility] HXRKM7079-18-76 13:08:0062 [facility]CHE[facility] RPLRS7139-41-18 13:08:0010.00[facility]annCHEM PANEL 2020-12-10 13:08:02293Gmkeqnex [facility]annCHE[facility] FBQCW8340-52-62 13:08:004.5[facility]annCHE[facility] KGPCT8624-33-33 13:08:42148Qnzwuuau [facility]annCHE[facility] YKMMZ1694-45-66 13:08:0027[facility]annCHE[facility] BFUWR1356-48-90 13:08:009.3[facility]annCHE[facility] EZWGY9830-02-08 13:08:007.6[facility]annCHE[facility] TDDPD1723-31-95 13:08:003.7 [facility]CHE[facility] MNUDT3701-58-93 13:08:0024[facility]annCHEM PANEL 2020-12-10 13:08:0016[facility]annCHE[facility] ECEQD5002-29-55 13:08:09829Xuwsutbt [facility]CHE[facility] YNSQF7017-64-46 13:08:000.4[facility]annCHEM REWLY4844-56-46 13:08:0014.5[facility]annCHEM WYPPG9637-17-88 13:08:00 Test Item Value Reference Range Interpretation Comments B/C Ratio (test code = B/C Ratio) 6 1 6-25 [facility] BUAHR2997-46-96 13:08:003.9[facility]annCHEM PANEL 2020-12-10 13:08:00 Test Item Value Reference Range Interpretation Comments A/G Ratio (test code = A/G Ratio) 0.9 1 0.7-1.6 [facility]CHE[facility] BKUHZ6861-10-69 13:08:005[facility]annHEMATOLOGY 2020-12-10 13:08:008.3[facility] GpdfngeUNHDIGYVFP1277-27-73 13:08:003.45[facility] GuicjezAIWWBHXTNX3411-74-10 13:08:0011.6[facility] HrrywpcSSKVXPFPIL8318-63-26 13:08:0034.0[facility] BcchamnDFRJPZNGDY9333-95-30 13:08:0098.7[facility] TEZZEDSNNH4232-26-10 13:08:00 Test Item Value Reference Range Interpretation Comments MCH (test code = MCH) 33.7 pg 27.0-31.0 [facility] WewfjjiAGXJPCKSBI8094-70-14 13:08:0034.1[facility]annHEMATOLOGY 2020-12-10 13:08:0016.4[facility] ZhkdqbwPBIUZJFNFE8242-22-37 13:08:72179Mkkemljf JasvwvfCRAJDUDKPT3259-53-93 13:08:008.5[facility] TdiqyplPHEHYUXXRM4426-98-50 13:08:0064.6[facility] EvdjftsVDMYJRFNER6311-21-65 13:08:0015.9[facility] MTSTYBHWZX3077-44-05 13:08:006.6[facility] PpktgneKVOLCKFZZY8961-85-78 13:08:00 12.0[facility] LigfcwhXMPSMMJYWU9324-44-87 13:08:000.9[facility]annHEMATOLOGY 2020-12-10 13:08:005.4[facility] NjubypfOWXKMXVTIU5706-40-30 13:08:001.3[facility] AiqxzvxVDHNVPVRJJ4184-14-11 13:08:000.5[facility] ZaohrphQRUHUDLAZQ1149-19-19 13:08:001.0[facility] SpgjlrfPLVRZKSIOL7118-47-38 13:08:000.1[facility]annCHEM EWEKZ6324-22-58 13:08:08723Nwusjnlf [facility]annCHE[facility] CTHUM0057-29-34 13:08:0062 [facility]CHE[facility] NFFUS4213-44-69 13:08:0010.00[facility]annCHEM PANEL 2020-12-10 13:08:70531Odxblpdd [facility]CHE[facility] NDTFJ8358-98-61 13:08:004.5[facility]annCHE[facility] PLJDU9715-08-00 13:08:14103Wnzguavy [facility]annCHE[facility] VZOLM2777-27-66 13:08:0027[facility]CHE[facility] DGUFX2197-10-76 13:08:009.3[facility]annCHE[facility] ZPZFB5811-20-53 13:08:007.6[facility]annCHE[facility] UZOEL8604-60-87 13:08:003.7 [facility]CHE[facility] VISWE7798-62-39 13:08:0024[facility]annCHEM PANEL 2020-12-10 13:08:0016[facility]annCHE[facility] UJIAA2558-65-00 13:08:76247Bjmonzek [facility]annCHE[facility] IQCLS8682-49-48 13:08:000.4[facility]annCHEM SHAXK9398-41-89 13:08:0014.5[facility]annCHEM PEGSJ3927-50-58 13:08:00 Test Item Value Reference Range Interpretation Comments B/C Ratio (test code = B/C Ratio) 6 1 6-25 [facility] CQAPE4444-38-49 13:08:003.9[facility]annCHEM PANEL 2020-12-10 13:08:00 Test Item Value Reference Range Interpretation Comments A/G Ratio (test code = A/G Ratio) 0.9 1 0.7-1.6 [facility]CHE[facility] RMIIE7520-19-97 13:08:005[facility]annHEMATOLOGY 2020-12-10 13:08:008.3[facility] XzpbczhWRQIRTCIJP3401-69-87 13:08:003.45[facility] HtptdstCPLUVOIKQE3188-11-12 13:08:0011.6[facility] SnnjsivMXFFKWHZAB6027-60-33 13:08:0034.0[facility] TejzwmoBMFDDCMTFA0240-88-41 13:08:0098.7[facility] XJMHFXQJGG3650-25-77 13:08:00 Test Item Value Reference Range Interpretation Comments MCH (test code = MCH) 33.7 pg 27.0-31.0 [facility] DoqrvpbJBLNUWYLOD5775-64-01 13:08:0034.1[facility]annHEMATOLOGY 2020-12-10 13:08:0016.4[facility] VqzpzbcDOLDIEXJGF0674-02-98 13:08:10087Fvhoqdjp KhzemifTDOWBLUTCS7996-77-33 13:08:008.5[facility] QjvgsisDBDUJGCYMT0750-83-34 13:08:0064.6[facility] DbpgeeyTUIMGNMNWI6802-50-35 13:08:0015.9[facility] FYAORAOMAC3039-97-63 13:08:006.6[facility] YgkopfgQVKRSDPOTW8486-73-32 13:08:00 12.0[facility] XfolzkzCCSQWATLBA9913-37-55 13:08:000.9[facility]annHEMATOLOGY 2020-12-10 13:08:005.4[facility] PcvitcsCFXARQDIYD9294-32-57 13:08:001.3[facility] OycdmcrHDVJLOSOOR1221-01-35 13:08:000.5[facility] JuhqddpGJDPCFKTOC8051-51-37 13:08:001.0[facility] EqjkvnwQHBDIXDOLH5298-47-51 13:08:000.1[facility]annCHEM MLNJG1684-41-78 13:08:69857Wvberiss HermannCHEM HHMJF8484-22-26 13:08:0062 [facility]CHE[facility] WTXHQ8054-15-72 13:08:0010.00[facility]annCHEM PANEL 2020-12-10 13:08:00699Sxhhkatb [facility]CHE[facility] WQIVJ2353-39-27 13:08:004.5[facility]annCHE[facility] QJYZA9581-71-51 13:08:67700Heavugqk [facility]CHE[facility] SXUFM6574-46-44 13:08:0027[facility]annCHE[facility] NKUUN2069-86-61 13:08:009.3[facility]annCHE[facility] RNECR1123-20-07 13:08:007.6[facility]annCHE[facility] PXRLK7820-43-46 13:08:003.7 [facility]CHE[facility] RLGKP2458-76-16 13:08:0024[facility]annCHEM PANEL 2020-12-10 13:08:0016[facility]annCHE[facility] BKBGV0870-46-60 13:08:53329Etxlkfiy [facility]CHE[facility] HXQBH7472-99-78 13:08:000.4[facility]annCHE[facility] IMHDB1390-38-40 13:08:0014.5[facility]annCHEM MAHER9275-37-30 13:08:00 Test Item Value Reference Range Interpretation Comments B/C Ratio (test code = B/C Ratio) 6 1 6-25 [facility]CHE[facility] PSBHV5551-15-37 13:08:003.9[facility]annCHEM PANEL 2020-12-10 13:08:00 Test Item Value Reference Range Interpretation Comments A/G Ratio (test code = A/G Ratio) 0.9 1 0.7-1.6 [facility]CHE[facility] UTUDC5283-16-24 13:08:005[facility]annHEMATOLOGY 2020-12-10 13:08:008.3[facility] HlkprzvRAZOPABEEB7671-96-77 13:08:003.45[facility] DexnlqtZMJUOQDGAO4397-95-50 13:08:0011.6[facility] RzgtzvrGKXZOJUUUB9678-24-68 13:08:0034.0[facility] BuilxisKBZRVBACIM0890-40-68 13:08:0098.7[facility] JHZEUJRGKG1707-85-76 13:08:00 Test Item Value Reference Range Interpretation Comments MCH (test code = MCH) 33.7 pg 27.0-31.0 [facility] QcjwfccJYLLGJNKWE0896-69-46 13:08:0034.1[facility]annHEMATOLOGY 2020-12-10 13:08:0016.4[facility] OedlmbqEMWPTMIVVF8190-88-79 13:08:22997Ramsrlbj ZqknjeqBZGFWUXUTQ4868-50-68 13:08:008.5[facility] TjcosmcRCYLBMLPKX4217-03-38 13:08:0064.6[facility] HmvlltoXPFDPNDDOL9515-22-98 13:08:0015.9[facility] NHWOUVYRXW5681-54-69 13:08:006.6[facility] VkqfrymZXQKJOEHKW4749-20-89 13:08:00 12.0[facility] NeswbdcENNRMGLXIB5805-27-60 13:08:000.9[facility]annHEMATOLOGY 2020-12-10 13:08:005.4[facility] IodueynHFXZKZFWLT8792-70-07 13:08:001.3[facility] McaqwqjNDRJOSLAYP3508-88-10 13:08:000.5[facility] XkmczfkXYQOCZQVIZ9335-21-47 13:08:001.0[facility] NfolsctBDYEWXSYDA2699-44-34 13:08:000.1[facility]annCHEM RLXEQ3871-33-98 13:08:27709Qwaakmna [facility]annCHEM LSBGX4060-91-06 13:08:0062 [facility]CHE[facility] TFNEE4881-78-38 13:08:0010.00[facility]annCHEM PANEL 2020-12-10 13:08:93137Xifvkwab [facility]CHE[facility] CLGXK4618-62-26 13:08:004.5[facility]annCHEM QFVKZ5074-47-52 13:08:22777Phseadla [facility]annCHE[facility] FAMRD3347-47-72 13:08:0027[facility]annCHE[facility] BJCAO6378-88-24 13:08:009.3[facility]annCHE[facility] NFAOV5149-90-45 13:08:007.6[facility]annCHE[facility] KYDUS2994-20-21 13:08:003.7 [facility]CHE[facility] BZHWQ9611-69-31 13:08:0024[facility]annCHE[facility] PANEL 2020-12-10 13:08:0016[facility]annCHE[facility] HLLLW5597-92-22 13:08:58935Qacxugmt [facility]CHE[facility] GRTAJ0566-71-48 13:08:000.4[facility]annCHE[facility] KUTLS6697-17-43 13:08:0014.5[facility]annCHE[facility] XYZOG1066-04-53 13:08:00 Test Item Value Reference Range Interpretation Comments B/C Ratio (test code = B/C Ratio) 6 1 6-25 [facility]CHE[facility] TNYOA9190-01-59 13:08:003.9[facility]annCHE[facility] PANEL 2020-12-10 13:08:00 Test Item Value Reference Range Interpretation Comments A/G Ratio (test code = A/G Ratio) 0.9 1 0.7-1.6 [facility]CHE[facility] LSSEB1027-30-07 13:08:005[facility]annHEMATOLOGY 2020-12-10 13:08:008.3[facility] CvxpadhNEFUQIQDKS5341-09-07 13:08:003.45[facility] AvuokyoXLJXXNZQDN7062-54-96 13:08:0011.6[facility] AcxgmieWLNZGQNFWS5768-74-73 13:08:0034.0[facility] JkckowbSAFVVSVFGS6282-56-58 13:08:0098.7[facility] ZMSXAGQHYB0329-84-59 13:08:00 Test Item Value Reference Range Interpretation Comments MCH (test code = MCH) 33.7 pg 27.0-31.0 [facility] QbbsqgjHCAPKTPTBB6953-45-27 13:08:0034.1[facility]annHEMATOLOGY 2020-12-10 13:08:0016.4[facility] VuwlnvjVTOCCYMVHS5279-78-77 13:08:97460Hhiwxvdc ZrumrtrYMFHHPHOSF9119-38-91 13:08:008.5[facility] ZwtucglDXZKKJEOXN8594-95-45 13:08:0064.6[facility] PuqlbeqESKLEINTDB0880-75-95 13:08:0015.9[facility] UEBPHRETXO5050-85-95 13:08:006.6[facility] DoxixurRFPOFYYXRS1897-48-08 13:08:00 12.0[facility] JcqqyntZRJGBWWOGD2777-34-08 13:08:000.9[facility]annHEMATOLOGY 2020-12-10 13:08:005.4[facility] RwtokknVSIUZFFGRU8101-01-57 13:08:001.3[facility] GlchzkaTDHIXSHVUP6653-69-83 13:08:000.5[facility] CphedkfUQYMWCZITJ3760-89-61 13:08:001.0[facility] EgtnjfqEOOGWHAXFP6539-66-00 13:08:000.1[facility]annCHEM LJFQV5033-04-71 13:08:68913Isiyryaf HermannCHEM NCSSE8869-49-31 13:08:0062 [facility]annCHE[facility] XKQMT2180-92-41 13:08:0010.00[facility]annCHEM PANEL 2020-12-10 13:08:35061Bvweyoku HermannCHEM LLXBX6363-96-36 13:08:004.5[facility]annCHEM IQTTS6276-66-21 13:08:91914Ajushink HermannCHEM IDAPW8114-07-26 13:08:0027[facility]annCHEM OXVXA3903-71-47 13:08:009.3[facility]annCHEM HAOYJ6966-56-23 13:08:007.6[facility]annCHEM TGDUK4965-93-71 13:08:003.7 [facility]annCHE[facility] XQWPO4896-40-11 13:08:0024[facility]annCHEM PANEL 2020-12-10 13:08:0016[facility]annCHEM HYBSS8424-44-87 13:08:95488Zfbropop [facility]annCHEM GFHJR1410-51-49 13:08:000.4[facility]annCHEM IWFVW9097-70-98 13:08:0014.5[facility]annCHEM IJLRH2854-79-28 13:08:00 Test Item Value Reference Range Interpretation Comments B/C Ratio (test code = B/C Ratio) 6 1 6-25 [facility]CHE[facility] GZTON4569-56-05 13:08:003.9[facility]annCHEM PANEL 2020-12-10 13:08:00 Test Item Value Reference Range Interpretation Comments A/G Ratio (test code = A/G Ratio) 0.9 1 0.7-1.6 [facility]annCHE[facility] WGNQG4652-90-83 13:08:005[facility]annHEMATOLOGY 2020-12-10 13:08:008.3[facility] ThmfeadIKURENNSXB6338-92-25 13:08:003.45[facility] BzjmathVJGIQMWCUJ9281-43-35 13:08:0011.6[facility] CcapnujXEXYETNXPI9487-43-84 13:08:0034.0[facility] UynirpbDGWFBQKBKV4016-00-02 13:08:0098.7[facility] WXLGAEDYPN9957-40-74 13:08:00 Test Item Value Reference Range Interpretation Comments MCH (test code = MCH) 33.7 pg 27.0-31.0 [facility] AuwqfgdERMSQENATY8047-54-83 13:08:0034.1[facility]annHEMATOLOGY 2020-12-10 13:08:0016.4[facility] ThepqvtIGDOGXSAKO5636-32-92 13:08:80581Whyxwjqo MklgzgiROQRBFJWSG3971-81-56 13:08:008.5[facility] HhvcohzBHEDLYEIMS3284-19-72 13:08:0064.6[facility] XqxlmkuZLLTZLINZH8521-96-77 13:08:0015.9[facility] BWUEZWUNNI2652-99-72 13:08:006.6[facility] GqpcmkyBYXAAEMOLB0141-66-37 13:08:00 12.0[facility] OpbkprmJTHXCCODFX4528-82-97 13:08:000.9[facility]annHEMATOLOGY 2020-12-10 13:08:005.4[facility] HnevlbxREMDUIGEBG5887-86-97 13:08:001.3[facility] OophcfaUOBUQDLXYO8461-97-74 13:08:000.5[facility] WuzbfmcHICCUOGLOA0224-86-45 13:08:001.0[facility] MkxofnmEBYTTBASQJ7262-95-37 13:08:000.1[facility] HermannAB HEPATITIS B UFVYQLR8908-38-95 06:11:00 Test Item Value Reference Range Interpretation Comments AB HEPATITIS B 330.9 mIU/mL Immunity>9.9 Status of I mmunity SURFACE (test code = HBSAB) Anti-HBs Level --- I ncons istent with Imm unity 0.0 - 9.9Consis tent with Immunity >9.9 AG HEPATITIS B BAAADXS5431-74-89 06:11:00 Test Item Value Reference Range Interpretation Comments AG HEPATITIS B SURFACE (test code = SCREEN NEGATIVE HBSAG) AB HEPATITIS B [id number] 06:11:00 Test Item Value Reference Range Interpretation Comments AB HEPATITIS B CORE (test code = HBCAB) AB HEPATITIS B LCCSZXI2375-76-52 06:11:00 Test Item Value Reference Range Interpretation Comments AB HEPATITIS B 330.9 mIU/mL Immunity>9.9 Status of I mmunity SURFACE (test code = HBSAB) Anti-HBs Level --- I ncons istent with Imm unity 0.0 - 9.9Consis tent with Immunity >9.9 AG HEPATITIS B [id number] 06:11:00 Test Item Value Reference Range Interpretation Comments AG HEPATITIS B SURFACE (test code = Negative Negative HBSAG) AB HEPATITIS B GHSI9650-18-20 06:11:00 Test Item Value Reference Range Interpretation Comments AB HEPATITIS B CORE (test code = HBCAB) AB HEPATITIS B [id number] 06:11:00 Test Item Value Reference Range Interpretation Comments AB HEPATITIS B 330.9 mIU/mL Immunity>9.9 Status of I mmunity SURFACE (test code = HBSAB) Anti-HBs Level --- I ncons istent with Imm unity 0.0 - 9.9Consis tent with Immunity >9.9 AG HEPATITIS B CJCBFKF0842-48-24 06:11:00 Test Item Value Reference Range Interpretation Comments AG HEPATITIS B SURFACE (test code = Negative Negative HBSAG) AB HEPATITIS B [id number] 06:11:00 Test Item Value Reference Range Interpretation Comments AB HEPATITIS B CORE Negative Negative Performe d At: HD (test code = HBCAB) [facility] [address] [facility], [place] [id number] rosendo Lockwood MD Ph:[phone] COMPREHENSIVE METABOLIC [id number] 07:10:00 Test Item Value Reference Range Interpretation Comments SODIUM (test code = NA) 135 mmol/L 134-147 N POTASSIUM (test code = K) 4.3 mmol/L 3.4-5.0 N CHLORIDE (test code = CL) 100 mmol/L 100-108 N CARBON DIOXIDE (test code = CO2) 31 mmol/L 21-32 N ANION GAP (test code = GAP) 4.0 GAP calc 4.0-15.0 N GLUCOSE (test code = GLU) 145 MG/DL 70-110 H BLOOD UREA NITROGEN (test code = 44 MG/DL 7-18 H BUN) GLOMERULAR FILTRATION RATE (test 6 estGFR >60 L code = GFR) CREATININE (test code = CREAT) 9.4 MG/DL 0.8-1.3 H TOTAL PROTEIN (test code = PROT) 7.0 G/DL 6.4-8.2 N ALBUMIN (test code = ALB) 3.4 G/DL 3.4-5.0 N GLOBULIN (test code = GLOB) 3.6 GM/dL ALBUMIN/GLOBULIN RATIO (test 0.9 RATIO 1.2-2.2 L code = A/G) CALCIUM (test code = CA) 9.4 MG/DL 8.5-10.1 N BILIRUBIN TOTAL (test code = 0.30 MG/DL 0.2-1.2 N BILT) SGOT/AST (test code = AST) 24 Unit/L 15-37 N SGPT/ALT (test code = ALT) 27 Unit/L 12-78 N ALKALINE PHOSPHATASE TOTAL (test 76 Unit/L 50-136 N code = ALKP) CBC W/AUTO [id number] 06:54:00 Test Item Value Reference Range Interpretation Comments WHITE BLOOD CELL (test code = 6.3 K/mm3 3.5-11.0 N WBC) RED BLOOD CELL (test code = 2.96 M/mm3 4.70-6.10 L RBC) HEMOGLOBIN (test code = HGB) 10.2 G/DL 12.3-15.9 L HEMATOCRIT (test code = HCT) 31.4 % 35.8-46.7 L MEAN CELL VOLUME (test code = 106.1 Fl 86.3-98.9 H MCV) MEAN CELL HGB (test code = MCH) 34.5 pg 28.9-34.4 H MEAN CELL HGB CONCETRATION 32.5 G/DL 32.1-34.5 N (test code = MCHC) RED CELL DISTRIBUTION WIDTH 14.6 SD 11.5-14.5 H (test code = RDW) PLATELET COUNT (test code = 160 K/mm3 150-450 N PLT) MEAN PLATELET VOLUME (test code 10.40 fL 7.0-9.6 H = MPV) NEUTROPHIL % (test code = NT%) 77.6 % 40-76 H IMMATURE GRANULOCYTE % (test 0.3 % 0.0-5.0 N code = IG%) LYMPHOCYTE % (test code = LY%) 9.8 % 20.5-51.1 L MONOCYTE % (test code = MO%) 7.6 % 1.7-9.3 N EOSINOPHIL % (test code = EO%) 3.8 % 0.0-6.0 N BASOPHIL % (test code = BA%) 0.9 % 0.0-2.0 N NUCLEATED RBC % (test code = 0.0 /100WBC% 0.0-1.0 N NRBC%) NEUTROPHIL # (test code = NT#) 4.9 K/mm3 1.8-7.6 N IMMATURE GRANULOCYTE # (test 0.02 x10 3/uL 0.00-0.03 N code = IG#) LYMPHOCYTE # (test code = LY#) 0.6 K/mm3 0.6-3.0 N MONOCYTE # (test code = MO#) 0.5 K/mm3 0.2-1.5 N EOSINOPHIL # (test code = EO#) 0.2 K/mm3 0.0-0.4 N BASOPHIL # (test code = BA#) 0.1 K/mm3 0.0-0.2 N NUCLEATED RBC # (test code = 0.0 K/mm3 0.00-0.01 N NRBC#) MANUAL DIFF REQUIRED (test code NO DIFF/SCN CRITERIA = MDIFF) GLUCOSE BEDSIDE [id number] 20:01:00 Test Item Value Reference Range Interpretation Comments GLUCOSE BEDSIDE TESTING (test code 165 mg/dL 70-110 H = GLUBED) COMPREHENSIVE METABOLIC [id number] 12:33:00 Test Item Value Reference Range Interpretation Comments SODIUM (test code = NA) 141 mmol/L 134-147 N POTASSIUM (test code = K) 3.9 mmol/L 3.4-5.0 N CHLORIDE (test code = CL) 104 mmol/L 100-108 N CARBON DIOXIDE (test code = CO2) 30 mmol/L 21-32 N ANION GAP (test code = GAP) 7.0 GAP calc 4.0-15.0 N GLUCOSE (test code = GLU) 185 MG/DL 70-110 H BLOOD UREA NITROGEN (test code = 36 MG/DL 7-18 H BUN) GLOMERULAR FILTRATION RATE (test 7 estGFR >60 L code = GFR) CREATININE (test code = CREAT) 8.3 MG/DL 0.8-1.3 H TOTAL PROTEIN (test code = PROT) 6.8 G/DL 6.4-8.2 N ALBUMIN (test code = ALB) 3.5 G/DL 3.4-5.0 N GLOBULIN (test code = GLOB) 3.3 GM/dL ALBUMIN/GLOBULIN RATIO (test 1.1 RATIO 1.2-2.2 L code = A/G) CALCIUM (test code = CA) 9.1 MG/DL 8.5-10.1 N BILIRUBIN TOTAL (test code = 0.30 MG/DL 0.2-1.2 N BILT) SGOT/AST (test code = AST) 19 Unit/L 15-37 N SGPT/ALT (test code = ALT) 25 Unit/L 12-78 N ALKALINE PHOSPHATASE TOTAL (test 98 Unit/L 50-136 N code = ALKP) CBC W/AUTO [id number] 12:25:00 Test Item Value Reference Range Interpretation Comments WHITE BLOOD CELL (test code = 4.6 K/mm3 3.5-11.0 N WBC) RED BLOOD CELL (test code = 2.98 M/mm3 4.70-6.10 L RBC) HEMOGLOBIN (test code = HGB) 10.1 G/DL 12.3-15.9 L HEMATOCRIT (test code = HCT) 30.7 % 35.8-46.7 L MEAN CELL VOLUME (test code = 103.0 Fl 86.3-98.9 H MCV) MEAN CELL HGB (test code = MCH) 33.9 pg 28.9-34.4 N MEAN CELL HGB CONCETRATION 32.9 G/DL 32.1-34.5 N (test code = MCHC) RED CELL DISTRIBUTION WIDTH 14.4 SD 11.5-14.5 N (test code = RDW) PLATELET COUNT (test code = 159 K/mm3 150-450 N PLT) MEAN PLATELET VOLUME (test code 10.60 fL 7.0-9.6 H = MPV) NEUTROPHIL % (test code = NT%) 66.5 % 40-76 N IMMATURE GRANULOCYTE % (test 0.4 % 0.0-5.0 N code = IG%) LYMPHOCYTE % (test code = LY%) 17.5 % 20.5-51.1 L MONOCYTE % (test code = MO%) 8.8 % 1.7-9.3 N EOSINOPHIL % (test code = EO%) 5.5 % 0.0-6.0 N BASOPHIL % (test code = BA%) 1.3 % 0.0-2.0 N NUCLEATED RBC % (test code = 0.0 /100WBC% 0.0-1.0 N NRBC%) NEUTROPHIL # (test code = NT#) 3.0 K/mm3 1.8-7.6 N IMMATURE GRANULOCYTE # (test 0.02 x10 3/uL 0.00-0.03 N code = IG#) LYMPHOCYTE # (test code = LY#) 0.8 K/mm3 0.6-3.0 N MONOCYTE # (test code = MO#) 0.4 K/mm3 0.2-1.5 N EOSINOPHIL # (test code = EO#) 0.3 K/mm3 0.0-0.4 N BASOPHIL # (test code = BA#) 0.1 K/mm3 0.0-0.2 N NUCLEATED RBC # (test code = 0.0 K/mm3 0.00-0.01 N NRBC#) MANUAL DIFF REQUIRED (test code NO DIFF/SCN CRITERIA = MDIFF) COVID 19 INHOUSE [id number] 12:24:00 Test Item Value Reference Range Interpretation Comments COVID 19 INHOUSE AG NEGATIVE Negative Per manu facturer, (test code = negative result s should [id number]) be treated aspr esumptive and, if inconsi stent with clinical signs andsymptoms or necessary for patient man agement, should betested with an alternative mol ecular assay. Negative resultsdo not preclude SA RS-CoV-2 infection and s hould not be usedas the s ole basis for patient man agement decisions. Neg ative results should be considered in t he context of apatient's r ecent exposures, hist ory, presence of cli nicalsigns and symptoms co nsistent with COVID-19. CHEM [id number] 12:35:0010[facility] [id number] 12:[facility] [id number] 12:35:0027[facility] PANEL 2018-01-10 12:35:005.91[facility] [id number] 12:35:0051[facility] [id number] 12:35:74837Plcivgld HermannCHEM DTRSU8411-97-21 12:35:93638Pxfhywzs HermannCHEM DREPZ2847-13-06 12:35:76918Fjjlaovz HermannCHEM ALMQF0508-57-85 12:35:004.2[facility]ann[facility] PHFDN5260-23-79 12:35:0016.2 [facility] TpyxpwiZBEEYYQZUE4843-22-66 12:35:00 Test Item Value Reference Range Interpretation Comments INR (test code = INR) 1.01 1 0.85-1.17 [facility] WfaxakcDNXARLQLOH3264-33-25 12:35:00 Test Item Value Reference Range Interpretation Comments PT (test code = PT) 13.3 s 12.0-14.7 [facility] OhnphhqHGCPYERLRP7847-02-16 12:35:001.2[facility] HermannHEMATOLOGY 2018-01-10 12:35:006.3[facility] AbtpsrfUCFKUMQKCP1808-36-41 12:35:001.3[facility] LqcvhijMTCZIPHCLB3913-28-41 12:35:000.8[facility] GnteijjBVRFNGXCEP4556-41-32 12:35:000.9[facility] FgyppaoNDPXFXLHDF7109-46-65 12:35:008.3[facility] QLKTETDSPX6343-13-69 12:35:009.6[facility] JpuzasdEIMCAVUTXJ3142-53-99 12:35:00 67.1[facility] MbnaijsMXBTTFPSCJ5889-92-05 12:35:0013.8[facility] HermannHEMATOLOGY 2018-01-10 12:35:000.1[facility] GfdogceKQEICWFHCR2974-20-05 12:35:00 Test Item Value Reference Range Interpretation Comments PTT (test code = PTT) 38.2 s 22.9-35.8 [facility] PzioraxHPQBWDNVAS9171-74-32 12:35:004.23[facility] HermannHEMATOLOGY 2018-01-10 12:35:0012.7[facility] SditzrhBTJJNLOZTU6706-38-82 12:35:009.4[facility] WjnggfmEVWYLGYZAG5160-62-26 12:35:0018.1[facility] IxktybvOGBGXXNJRC3756-69-76 12:35:81039Zjslsstu EgpafikEQBMOOTKID3883-04-80 12:35:008.4[facility] AZCIDOMNRG4495-90-57 12:35:00 Test Item Value Reference Range Interpretation Comments MCH (test code = MCH) 30.0 pg 27.0-31.0 [facility] BzvtikdRQLYQFPFML7883-46-87 12:35:0090.7[facility] HermannHEMATOLOGY 2018-01-10 12:35:0033.0[facility] WonepqnYYLSFLYNCR2024-10-91 12:35:0038.3[facility] HermannCHEM UQCPT5686-11-29 12:35:0010[facility] HermannCHEM NYXXJ3156-83-87 12:35:008.3[facility] HermannCHEM ETAAI6958-33-00 12:35:0027[facility] HermannCHEM EUVYC5872-90-75 12:35:005.91[facility] HermannCHEM CNRHP7345-78-27 12:35:0051 [facility] HermannCHEM UQXKA7841-04-91 12:35:35613Yjzhremn HermannCHEM PANEL 2018-01-10 12:35:80757Pghsdxcv HermannCHEM GGEHW2301-38-70 12:35:68188Ablpzmoq HermannCHEM EMIIF3070-71-14 12:35:004.2[facility] HermannCHEM WXVPX5179-06-40 12:35:0016.2[facility] HudiuqxDMWSBFOSKU9136-93-94 12:35:00 Test Item Value Reference Range Interpretation Comments INR (test code = INR) 1.01 1 0.85-1.17 [facility] EqelsscOIPEAKWIOR4874-92-45 12:35:00 Test Item Value Reference Range Interpretation Comments PT (test code = PT) 13.3 s 12.0-14.7 [facility] KuvfnyzEQEFXGSPNB4964-74-98 12:35:001.2[facility] HermannHEMATOLOGY 2018-01-10 12:35:006.3[facility] QjsxjaeMUNMNSRPXE7360-09-59 12:35:001.3[facility] ZooayrpYHEHKZHEVD0401-08-03 12:35:000.8[facility] DpslezvKDPMSONOZB7368-80-75 12:35:000.9[facility] DofuxcbTLSWKQMQHM8703-81-92 12:35:008.3[facility] IXCMQBQIRV1590-64-78 12:35:009.6[facility] JejvoxiQLFHBCGYPR8399-35-32 12:35:00 67.1[facility] XvjtafdYNHMZKMJDH9575-53-58 12:35:0013.8[facility] HermannHEMATOLOGY 2018-01-10 12:35:000.1[facility] PhxnjgjUBGLBKYCOJ5027-28-28 12:35:00 Test Item Value Reference Range Interpretation Comments PTT (test code = PTT) 38.2 s 22.9-35.8 [facility] QwrkkqqANEMIYCFOU6629-61-35 12:35:004.23[facility] HermannHEMATOLOGY 2018-01-10 12:35:0012.7[facility] JyvinefCJPXUMDQQI8751-08-89 12:35:009.4[facility] RjpnppwJYPUHDMBUF5732-94-03 12:35:0018.1[facility] RujsvjtREGNVALWUD1892-71-61 12:35:51373Pactoydk GgfrcnsSLCVANUXQK8457-44-12 12:35:008.4[facility] IQQXJYOIUW7619-99-24 12:35:00 Test Item Value Reference Range Interpretation Comments MCH (test code = MCH) 30.0 pg 27.0-31.0 [facility] CspwotdUMPTQLUZTP6694-25-65 12:35:0090.7[facility] HermannHEMATOLOGY 2018-01-10 12:35:0033.0[facility] BecvyazHXAYNOHDWL6919-73-10 12:35:0038.3[facility] HermannCHEM UBZGX2328-78-62 12:35:0010[facility] HermannCHEM USGXO5596-44-31 12:35:008.3[facility] HermannCHEM TKLWO9713-80-53 12:35:0027[facility] HermannCHEM LHUUN9728-27-79 12:35:005.91[facility] HermannCHEM PCHFR4598-13-53 12:35:0051 [facility]annCHEM OGJIU5300-70-41 12:35:49495Qjmyrbql HermannCHEM PANEL 2018-01-10 12:35:03577Gshxrqrd HermannCHEM IGTTW7057-56-26 12:35:27825Xqbmvxra HermannCHEM MFSSS1080-14-55 12:35:004.2[facility] HermannCHEM HURDL5384-48-38 12:35:0016.2[facility] BlfnswqUUITPNDDYT3214-35-48 12:35:00 Test Item Value Reference Range Interpretation Comments INR (test code = INR) 1.01 1 0.85-1.17 [facility] LgyzotjKNDPXOMHRN3567-62-88 12:35:00 Test Item Value Reference Range Interpretation Comments PT (test code = PT) 13.3 s 12.0-14.7 [facility] VqfpzemYTSTYGPRUM0086-80-74 12:35:001.2[facility] HermannHEMATOLOGY 2018-01-10 12:35:006.3[facility] XihtgnpKTLGJKWIFB6532-76-54 12:35:001.3[facility] HwyzmbdHAXFSPLCRG1945-75-79 12:35:000.8[facility] JwqcseuJKBEWBOEDG4102-26-29 12:35:000.9[facility] KiqgwdeCCBHMNRBUH4517-13-63 12:35:008.3[facility] NNTQMTBSBA1878-80-09 12:35:009.6[facility] FxoxfysIRDSLMWXGB8827-29-18 12:35:00 67.1[facility] PvwfzbxKNLDEZEIZP1416-90-14 12:35:0013.8[facility] HermannHEMATOLOGY 2018-01-10 12:35:000.1[facility] FsueeghLLGSJBJZRL7816-25-40 12:35:00 Test Item Value Reference Range Interpretation Comments PTT (test code = PTT) 38.2 s 22.9-35.8 [facility] ToinrhsMUVEESJAWA9320-68-10 12:35:004.23[facility] HermannHEMATOLOGY 2018-01-10 12:35:0012.7[facility] YlwlzerHODLJWOYCZ2601-24-42 12:35:009.4[facility] SyydnrbXYEBUXUOJQ7832-18-87 12:35:0018.1[facility] UujlsqlBPXYEMTEHC8345-98-15 12:35:86131Qssiemhx WahukozPBEJANQZFX1124-89-11 12:35:008.4[facility] FKXKUYTXMP2379-53-65 12:35:00 Test Item Value Reference Range Interpretation Comments MCH (test code = MCH) 30.0 pg 27.0-31.0 [facility] FwofpipYOUEKWONEE1507-98-45 12:35:0090.7[facility] HermannHEMATOLOGY 2018-01-10 12:35:0033.0[facility] LrwcrkhMEZLHODNGP1976-16-26 12:35:0038.3[facility] HermannCHEM ZMAMK2372-53-96 12:35:0010[facility] HermannCHEM NCILV3567-71-68 12:35:008.3[facility] HermannCHEM IULNN2600-91-16 12:35:0027[facility] HermannCHEM XAGLB7363-97-18 12:35:005.91[facility] HermannCHEM CYKIS9895-95-45 12:35:0051 [facility] HermannCHEM LJRSN6884-19-71 12:35:54420Kodsogxq HermannCHEM PANEL 2018-01-10 12:35:50359Elufyayz HermannCHEM FVLHG9554-51-80 12:35:25554Nvacphui HermannCHEM SIYFC6645-13-24 12:35:004.2[facility] HermannCHEM ZNGNI9512-19-45 12:35:0016.2[facility] YgwhotnJYEWVBNOTU0336-39-23 12:35:00 Test Item Value Reference Range Interpretation Comments INR (test code = INR) 1.01 1 0.85-1.17 [facility] JjesnbiYFOZGSARWK7480-41-65 12:35:00 Test Item Value Reference Range Interpretation Comments PT (test code = PT) 13.3 s 12.0-14.7 [facility] AjhrqqkBQRZUJNRVU0369-05-16 12:35:001.2[facility] HermannHEMATOLOGY 2018-01-10 12:35:006.3[facility] SazbouhJQKKCOMPLG5141-43-75 12:35:001.3[facility] RuursfoTFPNOGTKZE5787-50-50 12:35:000.8[facility] ImkyyobSSGQFALVRL2240-40-43 12:35:000.9[facility] MeedfikDAXPPAHWZX3491-31-28 12:35:008.3[facility] TRYSQRJHQE4934-74-06 12:35:009.6[facility] KnwqrfnCLLXHCQIBZ1232-95-43 12:35:00 67.1[facility] EhmxzheEKUAIIGUWW6168-65-12 12:35:0013.8[facility] HermannHEMATOLOGY 2018-01-10 12:35:000.1[facility] QjetblkRDBGCHKNGA5473-37-67 12:35:00 Test Item Value Reference Range Interpretation Comments PTT (test code = PTT) 38.2 s 22.9-35.8 [facility] AqjrvsfTPNYAASEXE0171-34-96 12:35:004.23[facility] HermannHEMATOLOGY 2018-01-10 12:35:0012.7[facility] ApqfnryCFSWCQBVWN1332-19-09 12:35:009.4[facility] NzchxbyKLYUHCCUUH1788-54-66 12:35:0018.1[facility] IlwlzzbQIZBZIQMYW0870-79-85 12:35:14946Mirouhce CmrsxkrFHQWOSBMPR5704-26-77 12:35:008.4[facility] FCQQTNOZNH4202-50-74 12:35:00 Test Item Value Reference Range Interpretation Comments MCH (test code = MCH) 30.0 pg 27.0-31.0 [facility] QikozhyOWGIWGNLOG0072-37-46 12:35:0090.7[facility] HermannHEMATOLOGY 2018-01-10 12:35:0033.0[facility] NitgvghGCNRCHSBXL1355-61-72 12:35:0038.3[facility] HermannCHEM SCNST2182-84-95 12:35:0010[facility] HermannCHEM REJNY3462-47-20 12:35:008.3[facility] HermannCHEM WBGIR6740-16-49 12:35:0027[facility] HermannCHEM XYPWG9619-56-17 12:35:005.91[facility] HermannCHEM OASTH7995-25-49 12:35:0051 [facility] HermannCHEM ETYKC7950-07-37 12:35:67809Qzefpzpm HermannCHEM PANEL 2018-01-10 12:35:05139Htgmbdsi HermannCHEM KOLRW6422-90-36 12:35:28053Erpgoasb HermannCHEM UMELW4299-05-63 12:35:004.2[facility] HermannCHEM JARGM8151-75-87 12:35:0016.2[facility] TkppczeGXRZBDMKIO9534-87-92 12:35:00 Test Item Value Reference Range Interpretation Comments INR (test code = INR) 1.01 1 0.85-1.17 [facility] CjiuaiiTQCTDLKXTR0902-52-16 12:35:00 Test Item Value Reference Range Interpretation Comments PT (test code = PT) 13.3 s 12.0-14.7 [facility] FiyhwcnCBFUFXDXHA5003-28-35 12:35:001.2[facility] HermannHEMATOLOGY 2018-01-10 12:35:006.3[facility] AbxtiztOQEZVKRMWM3080-60-32 12:35:001.3[facility] YbmnwgkLBQDTYIWFK6600-08-79 12:35:000.8[facility] WpgsugyKJCUJNEIYA9041-75-91 12:35:000.9[facility] MasdjmxSCIURBQRVI2256-45-97 12:35:008.3[facility] VWEABIMMIL3347-24-73 12:35:009.6[facility] VrbqrihIRRWDAHYFY9170-62-30 12:35:00 67.1[facility] QxrxehxLFVNUWRBKQ9741-69-03 12:35:0013.8[facility] HermannHEMATOLOGY 2018-01-10 12:35:000.1[facility] HveepjjOCVQKQANXW1228-68-56 12:35:00 Test Item Value Reference Range Interpretation Comments PTT (test code = PTT) 38.2 s 22.9-35.8 [facility] NevpeenZWXNBQHFCU9413-41-46 12:35:004.23[facility] HermannHEMATOLOGY 2018-01-10 12:35:0012.7[facility] DcyrhmwDVROVNVDVO0840-05-30 12:35:009.4[facility] YqzxobgMLTCGEALCS6824-47-12 12:35:0018.1[facility] IoqeqooZQWZNTVAQV5947-66-16 12:35:59503Rqlxuure EswmftjLIFZRXYREM7994-56-47 12:35:008.4[facility] NJHYYGWBMS2931-11-16 12:35:00 Test Item Value Reference Range Interpretation Comments MCH (test code = MCH) 30.0 pg 27.0-31.0 [facility] KktblfvCYCVFRXNQS5084-54-76 12:35:0090.7[facility] HermannHEMATOLOGY 2018-01-10 12:35:0033.0[facility] EuaksqdAQLGGHLDDX2075-49-73 12:35:0038.3[facility] HermannCHEM IDKIF0777-49-38 12:35:0010[facility] HermannCHEM PWFMO6865-75-11 12:35:008.3[facility] HermannCHEM LMKMN9692-22-70 12:35:0027[facility] HermannCHEM OBJAH3495-84-56 12:35:005.91[facility] HermannCHEM MZJFX5320-66-86 12:35:0051 [facility]annCHEM ZGJGW2902-88-32 12:35:24890Zyqxmhqc HermannCHEM PANEL 2018-01-10 12:35:87953Ellstbtg HermannCHEM TGKNR0656-32-13 12:35:22313Mapnwjmx [facility]annCHE[facility] CFIGQ3298-81-42 12:35:004.2[facility] HermannCHEM QBUMY6618-04-84 12:35:0016.2[facility] XxwiakwTWVNTBNUIJ3509-56-07 12:35:00 Test Item Value Reference Range Interpretation Comments INR (test code = INR) 1.01 1 0.85-1.17 [facility] RhzeqeaKMHCWBLIMK7854-17-91 12:35:00 Test Item Value Reference Range Interpretation Comments PT (test code = PT) 13.3 s 12.0-14.7 [facility] OclezmeVARQEFFVKH0982-89-02 12:35:001.2[facility]annHEMATOLOGY 2018-01-10 12:35:006.3[facility] WupwalfVJPWLDWOGT6875-46-88 12:35:001.3[facility] YptlluaKQJIVPPSNC1358-14-56 12:35:000.8[facility] IafdjszITBCAQCBKQ5964-56-75 12:35:000.9[facility] CragrdfMNSGPJFGCX0433-45-65 12:35:008.3[facility] TASORGMAMI1489-00-39 12:35:009.6[facility] GxbwykxQOOOJOWMEN4230-39-07 12:35:00 67.1[facility] NrudqpbAQLCLHLXNH9288-83-96 12:35:0013.8[facility]annHEMATOLOGY 2018-01-10 12:35:000.1[facility] NboclwcUMYOCHYCES3664-90-41 12:35:00 Test Item Value Reference Range Interpretation Comments PTT (test code = PTT) 38.2 s 22.9-35.8 [facility] YvefusvWLCYOXKOYD9440-94-33 12:35:004.23[facility]annHEMATOLOGY 2018-01-10 12:35:0012.7[facility] BgljhllEYXJEMPGFB7327-37-60 12:35:009.4[facility] DrjrdndYTAPWQZPKP8657-36-19 12:35:0018.1[facility] GsinzyjEWGVWSTXNJ3966-48-60 12:35:14649Pbrrieni OjudtfzOJCCDLFXUV2471-06-51 12:35:008.4[facility] NKMDIQIKCH5628-25-89 12:35:00 Test Item Value Reference Range Interpretation Comments MCH (test code = MCH) 30.0 pg 27.0-31.0 [facility] WyjgtckOIRKCURDBU9256-39-07 12:35:0090.7[facility]annHEMATOLOGY 2018-01-10 12:35:0033.0[facility] VfzubmkSFMQGSSWRG8040-69-96 12:35:0038.3[facility] HermannCHEM GHUHW4307-50-61 12:35:0010[facility] HermannCHEM WXPBA5015-00-40 12:35:008.3[facility] HermannCHEM HCTBZ2924-42-92 12:35:0027[facility] HermannCHEM BHHYQ5185-83-40 12:35:005.91[facility] HermannCHEM ISMTB9761-11-81 12:35:0051 [facility]annCHE[facility] RJGDP2309-89-54 12:35:39704Kqojkjfj HermannCHEM PANEL 2018-01-10 12:35:44076Anvofbwh HermannCHEM RDRQM2388-19-31 12:35:77225Njrgpryq [facility]CHE[facility] MKPRP6669-98-40 12:35:004.2[facility] HermannCHEM CAPNV2790-02-74 12:35:0016.2[facility] UixptutAWQWMREQCG3782-26-58 12:35:00 Test Item Value Reference Range Interpretation Comments INR (test code = INR) 1.01 1 0.85-1.17 [facility] FmkhtqeNFHPQCSQBL7541-05-41 12:35:00 Test Item Value Reference Range Interpretation Comments PT (test code = PT) 13.3 s 12.0-14.7 [facility] WxpwffySXOLUUSUQQ3096-01-97 12:35:001.2[facility]annHEMATOLOGY 2018-01-10 12:35:006.3[facility] MozfthdZIEEDOUTSI7524-35-31 12:35:001.3[facility] HgqdyezUWEWIQMOVM1700-55-06 12:35:000.8[facility] NyzdechTAXFAJEGFN5198-48-94 12:35:000.9[facility] YyaxepgMNDZLOYKLR1995-36-83 12:35:008.3[facility] GZAHIXGMCN2058-59-00 12:35:009.6[facility] AaotuvtFBGOHAFDQH3656-45-08 12:35:00 67.1[facility] BiqpxdfJSGLOYRVJM6161-74-55 12:35:0013.8[facility]annHEMATOLOGY 2018-01-10 12:35:000.1[facility] HehkamwYFSYKLICRJ5593-53-94 12:35:00 Test Item Value Reference Range Interpretation Comments PTT (test code = PTT) 38.2 s 22.9-35.8 [facility] MnbxsknYCNBQDTCTD4150-13-93 12:35:004.23[facility]annHEMATOLOGY 2018-01-10 12:35:0012.7[facility] DeovgzkRSQTOPTNHV5629-31-75 12:35:009.4[facility] MwsqiuuLTOJOPGUAF5140-88-46 12:35:0018.1[facility] AqcuxqtEPZLCWLCDU5364-07-36 12:35:91513Ujnknyey UcloyrfNZOLGVTIWJ8289-71-69 12:35:008.4[facility] OTFMBRXJUP7032-91-68 12:35:00 Test Item Value Reference Range Interpretation Comments MCH (test code = MCH) 30.0 pg 27.0-31.0 [facility] ZuyrsewRXLUZXLRBA7228-72-53 12:35:0090.7[facility]annHEMATOLOGY 2018-01-10 12:35:0033.0[facility] VcfplobMBSDAESGGJ8614-20-56 12:35:0038.3[facility] HermannCHEM NEUNT1859-73-21 12:35:0010[facility]annCHEM XMPDA9284-32-86 12:35:008.3[facility] HermannCHEM JHHHN5530-60-85 12:35:0027[facility]annCHE[facility] AOGZE5224-44-61 12:35:005.91[facility] HermannCHEM OGOFH1645-94-09 12:35:0051 [facility]annCHE[facility] ZBEDF3328-37-33 12:35:92764Jwiiifja HermannCHEM PANEL 2018-01-10 12:35:83615Cmvcmdiu [facility]annCHE[facility] OLIBS4585-43-66 12:35:19387Qnnogtpi [facility]CHE[facility] XDXQW4503-83-78 12:35:004.2[facility]annCHEM MVZSI1205-22-21 12:35:0016.2[facility] QbavslbFKELCISHGC8243-72-04 12:35:00 Test Item Value Reference Range Interpretation Comments INR (test code = INR) 1.01 1 0.85-1.17 [facility] LilaypwRDAPMFVUEQ9548-06-58 12:35:00 Test Item Value Reference Range Interpretation Comments PT (test code = PT) 13.3 s 12.0-14.7 [facility] GtshkjqKHZXATVGME1276-31-36 12:35:001.2[facility]annHEMATOLOGY 2018-01-10 12:35:006.3[facility] LslbtpoKBNTASAVLA2946-63-87 12:35:001.3[facility] ClizzrlINWQMWMLHK6146-70-78 12:35:000.8[facility] FwfibroOPEMVMMBHU5172-66-59 12:35:000.9[facility] SgthoqnLQOPTVDODO8297-81-82 12:35:008.3[facility] WDOJHIIADZ0688-42-58 12:35:009.6[facility] QiaynvlLRMBVNHVEP2818-34-67 12:35:00 67.1[facility] BwmwlhfFWLJBYFCSV1230-78-81 12:35:0013.8[facility]annHEMATOLOGY 2018-01-10 12:35:000.1[facility] DlzrwjmBHXHOAWPHH3860-48-07 12:35:00 Test Item Value Reference Range Interpretation Comments PTT (test code = PTT) 38.2 s 22.9-35.8 [facility] XpoptqsDGHZAWHAYV8429-42-46 12:35:004.23[facility]annHEMATOLOGY 2018-01-10 12:35:0012.7[facility] QwxuafoLHYMBWNIWC3111-24-90 12:35:009.4[facility] VbxunqiDXATEMQATK9495-28-32 12:35:0018.1[facility] FfonebfBFYFRKIMFI2189-56-18 12:35:97204Cmuglljz LsmfpvwQKKUIVEMSR1723-47-37 12:35:008.4[facility] PTFBXMLRXH2704-34-53 12:35:00 Test Item Value Reference Range Interpretation Comments MCH (test code = MCH) 30.0 pg 27.0-31.0 [facility] AlcaqirGESFBMWUFO3168-08-37 12:35:0090.7[facility]annHEMATOLOGY 2018-01-10 12:35:0033.0[facility] SjlmuscXDXBSXTAEF0782-02-86 12:35:0038.3[facility] HermannCHEM ORCYH0089-02-97 12:35:0010[facility]annCHEM PMXCL7549-42-44 12:35:008.3[facility] HermannCHEM FWNND5282-15-99 12:35:0027[facility]annCHEM JVKWG7236-71-10 12:35:005.91[facility] HermannCHEM CGCBV6435-93-93 12:35:0051 [facility]annCHE[facility] CMMQS9597-59-65 12:35:82101Hpcgilpb HermannCHEM PANEL 2018-01-10 12:35:20379Zmjjznuk [facility]CHE[facility] BUSZP6519-44-91 12:35:91182Bscxjxna [facility]CHE[facility] ZWCGH4005-23-87 12:35:004.2[facility]annCHEM MTFRT9141-46-94 12:35:0016.2[facility] AwjyfafZFIFPZGQFU0885-23-11 12:35:00 Test Item Value Reference Range Interpretation Comments INR (test code = INR) 1.01 1 0.85-1.17 [facility] EmdkabjSHCCJKEQBN5474-94-35 12:35:00 Test Item Value Reference Range Interpretation Comments PT (test code = PT) 13.3 s 12.0-14.7 [facility] LohdawzXSDOTMDUCT9256-84-10 12:35:001.2[facility]annHEMATOLOGY 2018-01-10 12:35:006.3[facility] LrzuwqcIMUIKVHPLK5219-83-92 12:35:001.3[facility] JgympvkUZDQEKCSCM7369-56-10 12:35:000.8[facility] QfbrdjnYRJLJYJDTY3065-75-13 12:35:000.9[facility] OfqpewxYXYBOSUXAT0498-93-87 12:35:008.3[facility] PTMYHYMWLD9489-42-65 12:35:009.6[facility] ViversnEQZMJXSFAN9542-80-11 12:35:00 67.1[facility] LjudllqNOFBJSBQRB4267-91-72 12:35:0013.8[facility]annHEMATOLOGY 2018-01-10 12:35:000.1[facility] GxdjqcyTERQTIBHRS8325-23-25 12:35:00 Test Item Value Reference Range Interpretation Comments PTT (test code = PTT) 38.2 s 22.9-35.8 [facility] OgvccdjATRNWIYGGH6218-27-21 12:35:004.23[facility]annHEMATOLOGY 2018-01-10 12:35:0012.7[facility] ElzddjzRPWPHMWCVY7825-40-11 12:35:009.4[facility] EilaftdXOVRMBIJAW4309-82-47 12:35:0018.1[facility] YvotmumBTNGAEQTQL7573-03-30 12:35:99723Gccleefj EnubfvdYPAGYLVGKI9763-63-62 12:35:008.4[facility] IMYVHOCLHR7876-95-12 12:35:00 Test Item Value Reference Range Interpretation Comments MCH (test code = MCH) 30.0 pg 27.0-31.0 [facility] BfbumwwUVPOWBIHPN5451-69-39 12:35:0090.7[facility]annHEMATOLOGY 2018-01-10 12:35:0033.0[facility] LhinkemUOTKGKQFSG0494-63-02 12:35:0038.3[facility] ErfjunsLBSOKVXCRN6240-02-83 17:25:00 Test Item Value Reference Range Interpretation Comments POC Activated Clotting Time (test code 257 s = POC Activated Cl[facility] Time) [facility]JRZKFULAR[facility]84[facility] 17:25:00 Test Item Value Reference Range Interpretation Comments POC Activated Clotting Time (test code 257 s = POC Activated Clotting Time) [facility]YfctmmgMINABJGREH7485-11-60 17:25:00 Test Item Value Reference Range Interpretation Comments POC Activated Clotting Time (test code 257 s = POC Activated Clotting Time) [facility]EyveloeNQCBAWEGJP4527-34-64 17:25:00 Test Item Value Reference Range Interpretation Comments POC Activated Clotting Time (test code 257 s = POC Activated Clotting Time) [facility] HospitalZrbldojSJUCCGBZUM8974-14-49 17:25:00 Test Item Value Reference Range Interpretation Comments POC Activated Clotting Time (test code 257 s = POC Activated Clotting Time) [facility]IvddmqoLZMWTUOOKS7160-48-40 17:25:00 Test Item Value Reference Range Interpretation Comments POC Activated Clotting Time (test code 257 s = POC Activated Clotting Time) [facility] CenterMaricjyGHFGVHEFFZ5310-18-02 17:25:00 Test Item Value Reference Range Interpretation Comments POC Activated Clotting Time (test code 257 s = POC Activated Clotting Time) [facility] CenterRavantgSISHQYWDCO5636-31-53 17:25:00 Test Item Value Reference Range Interpretation Comments POC Activated Clotting Time (test code 257 s = POC Activated Clotting Time) [facility] CenterBczuuhiCKLSSVWDBZ5741-06-78 17:25:00 Test Item Value Reference Range Interpretation Comments POC Activated Clotting Time (test code 257 s = POC Activated Clotting Time) [facility] CenterOezrchqNGVHJUOWOS4101-53-91 16:10:00 Test Item Value Reference Range Interpretation Comments POC Activated Clotting Time (test code 271 s = POC Activated Clotting Time) [facility] CenterIidrdlqRFWGQHLNIV5371-59-87 16:10:00 Test Item Value Reference Range Interpretation Comments POC Activated Clotting Time (test code 271 s = POC Activated Clotting Time) [facility] CenterCrgdxxxFMFCCZDGCA0666-86-10 16:10:00 Test Item Value Reference Range Interpretation Comments POC Activated Clotting Time (test code 271 s = POC Activated Clotting Time) [facility] CenterOfcjgbyUSRHJIFYVD1082-63-90 16:10:00 Test Item Value Reference Range Interpretation Comments POC Activated Clotting Time (test code 271 s = POC Activated Clotting Time) [facility] CenterGsnoylxNMBITHWRVA6728-80-83 16:10:00 Test Item Value Reference Range Interpretation Comments POC Activated Clotting Time (test code 271 s = POC Activated Clotting Time) [facility] CenterCghowczKFRNEBABBM5387-79-69 16:10:00 Test Item Value Reference Range Interpretation Comments POC Activated Clotting Time (test code 271 s = POC Activated Clotting Time) [facility] CenterKimbeqnHKVAQMVJNZ7492-00-00 16:10:00 Test Item Value Reference Range Interpretation Comments POC Activated Clotting Time (test code 271 s = POC Activated Clotting Time) [facility] CenterAdbryciFCNJKVKRXT5238-18-17 16:10:00 Test Item Value Reference Range Interpretation Comments POC Activated Clotting Time (test code 271 s = POC Activated Clotting Time) [facility] CenterHkqzqypDPQZYODECZ8077-53-46 16:10:00 Test Item Value Reference Range Interpretation Comments POC Activated Clotting Time (test code 271 s = POC Activated Clotting Time) [facility] DbyjgfuKHWIZRAUMRXX7997-98-27 15:38:36456Dutrwcth HermannELECTROLYTES 2017-11-17 15:38:003.8[facility] DalqbqwLSZVMRISQRNJ5173-72-65 15:38:92690Yzvgtihk ObcltujXKZWWOPEIJZZ1478-01-56 15:38:0015[facility] FzdvbanHYNBQHITYBZQ9306-00-94 15:38:003.96[facility] EbzywyrGWNASUGSFBKZ8905-11-47 15:38:0030[facility] UNJNUAJXVKXH6174-14-32 15:38:008.2[facility] EpxxmvgFXAMMXLNQGVI1238-85-15 15:38:0032[facility] XzuhqvkZOSYJPBLVGXZ3979-33-03 15:38:009.8[facility] KKITZTVJJOUV3339-02-00 15:38:14137Vuujgjcw GreanhiECCVNIUSAY3509-70-81 15:38:00 Test Item Value Reference Range Interpretation Comments PT (test code = PT) 13.3 s 12.0-14.7 [facility] CirftjvUDPVUWQPSH5861-37-46 15:38:00 Test Item Value Reference Range Interpretation Comments PTT (test code = PTT) 31.9 s 22.9-35.8 [facility] JdkbvfzFMOLASHABZ9070-75-50 15:38:00 Test Item Value Reference Range Interpretation Comments INR (test code = INR) 1.01 1 0.85-1.17 [facility] VclmtkrIGRATTDXWD8892-51-95 15:38:0017.0[facility]ann[facility]OLOGY 2017-11-17 15:38:0033.7[facility] ByvjbqbPNZNKXRMNO8039-48-80 15:38:24986Ecxzampx TvykpumMOIOWDUJNV3618-02-44 15:38:008.3[facility] LwvlrjuBXXAEVOJOT6408-66-18 15:38:0086.3[facility] FwxjmyaAMASFGVXKT6631-84-02 15:38:00 Test Item Value Reference Range Interpretation Comments MCH (test code = MCH) 29.1 pg 27.0-31.0 [facility] PydvyheMZNQAFTWQM7149-14-65 15:38:0035.8[facility]annHEMATOLOGY 2017-11-17 15:38:0012.1[facility] NqdxylzYJATXIGKSP3534-03-09 15:38:007.9[facility] ZjahwjhCYHZPHEGNT9010-41-54 15:38:004.15[facility] UknrenzKHDZEUGGRB1465-41-14 15:38:004.6[facility] CnmjqfxRVOHVHXWNA0500-57-37 15:38:002.3[facility] QHUMFKCDXF5081-11-40 15:38:001.0[facility] ZvbnmswGWHPDFYNKT7649-27-95 15:38:000.7 [facility] RldiewiEPNVVHMZEA1032-94-30 15:38:001.4[facility]annHEMATOLOGY 2017-11-17 15:38:000.2[facility] DjkinmjYLPPEMOVGU9466-61-56 15:38:0013.1[facility] UzgofwdBIIUTCXPHR6551-92-02 15:38:009.5[facility] TusvtpyDHVDJEHFFY4943-97-47 15:38:0017.2[facility] MsnmxjkZESBFNKRTF5225-64-18 15:38:0057.9[facility] WPJXEUODZIVB7142-62-14 15:38:93369Pkrddcby NfegqgjAODNNEBZPHGZ7926-75-81 15:38:003.8[facility] CjcsxydHFREXWXUEGIR2455-03-85 15:38:28296Idexcxhc David HLXZXFUBTZXV0214-86-99 15:38:0015[facility] XurritvSGPSSBBVNDFH2252-11-38 15:38:00 3.96[facility] ZhudwiyJAFUVAXELLQG9026-13-04 15:38:0030[facility] GOKRDBZKQCTL0957-47-28 15:38:008.2[facility] RktilljFTKZTSGOCUTP5998-46-72 15:38:0032[facility] XbmaowfNITBQDSEQYAX1050-65-42 15:38:009.8[facility] RBZLFXQRUJHX9337-12-63 15:38:07103Ttcknayi FweuvcdEZQUNJCLAA0354-25-14 15:38:00 Test Item Value Reference Range Interpretation Comments PT (test code = PT) 13.3 s 12.0-14.7 [facility] RodhdsjHRQNETHCFA3174-94-90 15:38:00 Test Item Value Reference Range Interpretation Comments PTT (test code = PTT) 31.9 s 22.9-35.8 [facility] WtnnxwcXARLIADZQN8711-66-34 15:38:00 Test Item Value Reference Range Interpretation Comments INR (test code = INR) 1.01 1 0.85-1.17 [facility] ThxokpvWOZXNHENVE6229-17-75 15:38:0017.0[facility] 2017-[facility]-17 15:38:0033.7[facility] UcdzqoaQUTQVDYQTC6971-42-50 15:38:43921Rbjdfsbe SimgemyXSOYOWBVUV1939-31-53 15:38:008.3[facility] TfviotiDOOWFTZWCJ9186-01-28 15:38:0086.3[facility] WdlfymaSMVVQFEUFY8209-77-25 15:38:00 Test Item Value Reference Range Interpretation Comments MCH (test code = MCH) 29.1 pg 27.0-31.0 [facility] VolocakMSZWIMYAHN6027-30-93 15:38:0035.8[facility]ann[facility] 2017-11-17 15:38:0012.1[facility] MvznlmtJRFSOMWYOO4100-28-32 15:38:007.9[facility] RemqmxzJFXHPUCOVJ3404-53-17 15:38:004.15[facility] OjrwkeuDIJPOTTIBX1631-59-87 15:38:004.6[facility] YscvhgmGBKASXHOKK1349-05-58 15:38:002.3[facility] USYFYBAZZQ5451-62-96 15:38:001.0[facility] CyetisgTIUCLGOFYU1451-21-84 15:38:000.7 [facility] HazdbbnFRUQCNVNAE3985-77-43 15:38:001.4[facility]ann[facility]Y 2017-11-17 15:38:000.2[facility] AntkladQNSXIPEAOT5273-58-11 15:38:0013.1[facility] ZlccknrCUPCVRDVOB8597-08-85 15:38:009.5[facility] UgirtwbLCJFUPHCGK8278-28-90 15:38:0017.2[facility] OepmjcrQDBTEZVCNW0732-54-59 15:38:0057.9[facility] QFXKPXGXZVFU1660-95-28 15:38:22323Jdassjtm DjgiaemKJDRJOLRPWQL8049-28-63 15:38:003.8[facility] NuprpceTJUVILEHICUH3148-48-91 15:38:31980Mjrfanty [facility] JTMMMRUCCWKD6263-68-42 15:38:0015[facility] WaftvooTSWYJQMSFTMZ4335-71-94 15:38:00 3.96[facility] UubrgjwHKACEBDZKPVI2719-94-93 15:38:0030[facility] QQLMOJOAZFFL2602-37-63 15:38:008.2[facility] UhutaarVWAXWXYASKOI9810-48-15 15:38:0032[facility] BofalmzDJTABJGTHSVK1068-85-79 15:38:009.8[facility] GHCXSNSEAXLP9531-57-89 15:38:74542Hgrjogmj PrhdqljSMRVCENFXT3650-10-73 15:38:00 Test Item Value Reference Range Interpretation Comments PT (test code = PT) 13.3 s 12.0-14.7 [facility] DixqsysHZFVIDUUZD4914-86-84 15:38:00 Test Item Value Reference Range Interpretation Comments PTT (test code = PTT) 31.9 s 22.9-35.8 [facility] SrdupzwZXRIPOILXD1991-24-80 15:38:00 Test Item Value Reference Range Interpretation Comments INR (test code = INR) 1.01 1 0.85-1.17 [facility] UuxnselASCYIGTIWF8815-63-06 15:38:0017.0[facility]ann[facility] 2017-11-17 15:38:0033.7[facility] VgcxkawZDRPYIQDTT8316-40-45 15:38:83087Lmoaxmlk NuzckvpKNGAHJZYMO0625-53-46 15:38:008.3[facility] LsjueacXTGOCVELVG2374-28-89 15:38:0086.3[facility] NoyuzodXYEDOUAVIV7205-50-43 15:38:00 Test Item Value Reference Range Interpretation Comments MCH (test code = MCH) 29.1 pg 27.0-31.0 [facility] MfgargxYKPYFJAZPS5900-97-42 15:38:0035.8[facility]annHEMATOLOGY 2017-11-17 15:38:0012.1[facility] WzamsydVCNPKXVEYK7075-75-99 15:38:007.9[facility] AmbjdxwIBVEYKWCQU7177-81-11 15:38:004.15[facility] SeeovhlDKAKEXQPTZ2817-32-62 15:38:004.6[facility] DyickbnFWYYVWBBLO3564-49-59 15:38:002.3[facility] CTQQPFHMBC5297-22-66 15:38:001.0[facility] CqhzdrdQHGYTADWTV5581-32-21 15:38:000.7 [facility] GvjomwlUWMLLKHMVI8088-95-16 15:38:001.4[facility]annHEMATOLOGY 2017-11-17 15:38:000.2[facility] AyypaegLGWFZCORJZ4922-47-41 15:38:0013.1[facility] ImrrvjwJQBNHZEWCP0956-15-18 15:38:009.5[facility] XhsnumoOUFIWJDMKN3259-23-31 15:38:0017.2[facility] KxrajqmSKOKNYJUZF6961-53-10 15:38:0057.9[facility] QGIFBLQAINKT5963-87-08 15:38:61071Jvriplov AraqzzuGKRMDNFTHKTN4223-98-59 15:38:003.8[facility] SypuuevWHMVGCUWKWGO0827-90-42 15:38:96856Qecchaqf [facility] OKYLSNNVUTCU1068-39-02 15:38:0015[facility] LjyjggqLRRKZDDVKOMU8611-59-65 15:38:00 3.96[facility] SkypqopSPMRRGJHKFZW9555-40-18 15:38:0030[facility] ZBXVCXQZAPKW3020-59-10 15:38:008.2[facility] IxuqtduELGSHTSVXJGS4180-55-17 15:38:0032[facility] IebjcbgQBWXCQDDUGMD2162-98-41 15:38:009.8[facility] QBRQHXRDHGEW2839-09-19 15:38:11839Obcvxrgn IexboxvQCQEWJKZOV9186-92-53 15:38:00 Test Item Value Reference Range Interpretation Comments PT (test code = PT) 13.3 s 12.0-14.7 [facility] XycrbbcJXECYEVQMI1115-07-21 15:38:00 Test Item Value Reference Range Interpretation Comments PTT (test code = PTT) 31.9 s 22.9-35.8 [facility] KwiwujmJBMWIRNQFH2382-63-48 15:38:00 Test Item Value Reference Range Interpretation Comments INR (test code = INR) 1.01 1 0.85-1.17 [facility] PrzzyqpHZBEEIKSNP9478-33-42 15:38:0017.0[facility]ann[facility]Y 2017-11-17 15:38:0033.7[facility] JevrejlXTSCUOICQC6116-14-03 15:38:72189Kxzfgaun ScwrubbRGLPLEVGRT5764-95-21 15:38:008.3[facility] BhldqslVPLSQGQZIZ1244-89-00 15:38:0086.3[facility] QebeedtMSYQRSCEIU7435-84-70 15:38:00 Test Item Value Reference Range Interpretation Comments MCH (test code = MCH) 29.1 pg 27.0-31.0 [facility] GhmyccpXLFDYUNRHD2360-97-61 15:38:0035.8[facility]annHEMATOLOGY 2017-11-17 15:38:0012.1[facility] RecbherLVYQYATRUP2132-95-26 15:38:007.9[facility] IpdnrohZHGZUBHOCP8885-54-03 15:38:004.15[facility] KwrgxlfDCVNGWYSXJ4957-03-10 15:38:004.6[facility] GjglkhtIZZQPAVDRP3713-24-01 15:38:002.3[facility] JVLNAYJEYR4470-30-91 15:38:001.0[facility] SoqhbzcSHYCWATBQG7738-96-31 15:38:000.7 [facility] PraaeejOSJQERZVXX0217-76-44 15:38:001.4[facility]annHEMATOLOGY 2017-11-17 15:38:000.2[facility] BxpzygyUPUVLGMMZA6111-74-78 15:38:0013.1[facility] PamiczpXYTVZPBBMM4614-65-11 15:38:009.5[facility] GevsjftFPWKLFDRWC0722-48-91 15:38:0017.2[facility] WskrqrtLLTQKRMLTN6735-41-52 15:38:0057.9[facility] CPWEXGAHBJYP9984-45-13 15:38:98807Txxgjtzb SytleceFBLDXJDYDEHH9010-20-21 15:38:003.8[facility] XixysupNLFAJOIJBRCA8378-72-75 15:38:19831Gtzfspso [facility] HQVIBNCEFCSU6978-19-45 15:38:0015[facility] EwczbopZDPAJAYHJUKT6705-22-69 15:38:00 3.96[facility] FvdsqshLLDSXNWKPICS8132-59-84 15:38:0030[facility] WHMAXPSIKNFI4745-76-97 15:38:008.2[facility] XuoprvnOFQLKFEPCUKE0352-36-15 15:38:0032[facility] WgvtiozGHJZVSBFJSZH2071-21-32 15:38:009.8[facility] XWNNWZEELNDB8707-05-46 15:38:34866Whsvebwu ZtqoazaLRCXJZEJLF2853-88-46 15:38:00 Test Item Value Reference Range Interpretation Comments PT (test code = PT) 13.3 s 12.0-14.7 [facility] VxjhaktAELRXHCYRG6846-73-77 15:38:00 Test Item Value Reference Range Interpretation Comments PTT (test code = PTT) 31.9 s 22.9-35.8 [facility] NuuyuqoNEXXHOZFEM4435-55-20 15:38:00 Test Item Value Reference Range Interpretation Comments INR (test code = INR) 1.01 1 0.85-1.17 [facility] NcpalpbYYANZVUWOO9715-39-83 15:38:0017.0[facility]annHEMATOLOGY 2017-11-17 15:38:0033.7[facility] QjmjprbUOEAMTXRCV3712-28-63 15:38:11629Owwqshlx FoecdyaHGUVPTENMD6380-08-83 15:38:008.3[facility] NmncdlvHSLQXCTOSN5684-63-70 15:38:0086.3[facility] KiraaylNEFQUYLUON5650-60-82 15:38:00 Test Item Value Reference Range Interpretation Comments MCH (test code = MCH) 29.1 pg 27.0-31.0 [facility] TtizsavLURYWTJOYB4990-90-83 15:38:0035.8[facility]annHE[facility]Y 2017-11-17 15:38:0012.1[facility] EflhprjXHLCXWAKNT7588-62-99 15:38:007.9[facility] FppuvztOKLYHKJPVO8798-22-51 15:38:004.15[facility] WexyycyJGCIMZAPMJ2265-15-98 15:38:004.6[facility] NizxzvdDONWSLYSDF0943-85-70 15:38:002.3[facility] BERAUQSMTB2660-11-44 15:38:001.0[facility] DegauvuXWTLZDIEIS0512-11-91 15:38:000.7 [facility] NrhfisyOCUWHNRRPH7730-42-15 15:38:001.4[facility]annHEMATOLOGY 2017-11-17 15:38:000.2[facility] VoqqebsTRJQKBXXUW9217-79-15 15:38:0013.1[facility] DmlzmxtNFURUNZBSQ3355-02-91 15:38:009.5[facility] ZofhsjmZZKORGGDZU0921-81-62 15:38:0017.2[facility] QulxnkuUOOSJEGFRV3586-71-82 15:38:0057.9[facility] UVQHZPLFOBGV8665-85-78 15:38:94434Qgzkxvob IribdxvSMFRDQKMWENE1813-99-78 15:38:003.8[facility] CbfjioqPGWSSCLYZMPA5078-84-16 15:38:06626Zuuzanqu [facility] DLUIHTGVXDSF8558-15-97 15:38:0015[facility] BneawxoNOCZZFALWXXP8095-27-83 15:38:00 3.96[facility] CuorvxqRSKBMOLEWFOF4400-51-79 15:38:0030[facility] VZBGUUADBEKJ7690-11-64 15:38:008.2[facility] LxovebwQNUPVMSTMEUY6687-20-83 15:38:0032[facility] RpapnflDJYKLZFSAXPD2225-19-22 15:38:009.8[facility] MWFPBFDTDNFM3751-20-17 15:38:51697Pyirqacu ShlapnkYIXVATIHGC0009-18-10 15:38:00 Test Item Value Reference Range Interpretation Comments PT (test code = PT) 13.3 s 12.0-14.7 [facility] VnkkfxwHUCLYOIWLM8634-41-12 15:38:00 Test Item Value Reference Range Interpretation Comments PTT (test code = PTT) 31.9 s 22.9-35.8 [facility] KspaliqTIFFDCBFEU0565-39-96 15:38:00 Test Item Value Reference Range Interpretation Comments INR (test code = INR) 1.01 1 0.85-1.17 [facility] CpessbrKYMRVLFPNN9090-23-06 15:38:0017.0[facility]annHE[facility] 2017-11-17 15:38:0033.7[facility] UceetcpNQNDNAVLNH9236-19-38 15:38:34610Rozfahzf GoyyouqWDZPSBBVKA6402-07-84 15:38:008.3[facility] NhponfmLOLBUIBSQH2259-77-26 15:38:0086.3[facility] BjmgfwkBLCLDHXMWX9209-49-27 15:38:00 Test Item Value Reference Range Interpretation Comments MCH (test code = MCH) 29.1 pg 27.0-31.0 [facility] DtdytewNDGXUQUAVN9186-17-66 15:38:0035.8[facility]annHE[facility] 2017-11-17 15:38:0012.1[facility] CytjlptZJINWAMRMT2509-84-39 15:38:007.9[facility] CbewkzaABUCVUOZOD6124-90-35 15:38:004.15[facility] YhuduqcSBIWYAOSPD9141-86-15 15:38:004.6[facility] QgyasoqPFBKUGEZNK1451-30-60 15:38:002.3[facility] FCPDVJWJIV0261-34-45 15:38:001.0[facility] ZgfpiexTDVXJBZQLJ2586-87-75 15:38:000.7 [facility] JmuwkxvOKHXAXSCEP7238-48-07 15:38:001.4[facility]annHE[facility]Y 2017-11-17 15:38:000.2[facility] SiaayfsMPXKGTFMDG6886-10-06 15:38:0013.1[facility] UulmawzBEKSTUVXEB4991-22-32 15:38:009.5[facility] VajyffiBJDKIPEQDN5120-15-20 15:38:0017.2[facility] VpottljOVMOOYWPGC2830-50-46 15:38:0057.9[facility] ATTRAOPQTPAJ8157-44-95 15:38:98581Xwhgrhen WpgdaccXCVAFRLVHSQY4241-87-55 15:38:003.8[facility] UwjbzwsDDUPXCUSQTVU2887-02-20 15:38:58359Btloouwv [facility] HBLLCNDDPUKQ1555-28-93 15:38:0015[facility] AuabfnwABRYPERBOIHU2183-44-75 15:38:00 3.96[facility] BqoyvrjHPMITVNKJCJO2989-31-30 15:38:0030[facility] SRWUJBQDEDKZ9158-22-22 15:38:008.2[facility] RkiawpmOJXGQEDOENMZ3418-72-46 15:38:0032[facility] PzurqukDXKTOVBMSRJW4809-73-71 15:38:009.8[facility] MOVUPIHUSVLG6696-66-29 15:38:78066Vnuqapac LgaxllzADJEBFWPWE1920-87-66 15:38:00 Test Item Value Reference Range Interpretation Comments PT (test code = PT) 13.3 s 12.0-14.7 [facility] TuhnkleIHPQARBLUN4470-33-26 15:38:00 Test Item Value Reference Range Interpretation Comments PTT (test code = PTT) 31.9 s 22.9-35.8 [facility] TtlnxyrMTIHHMBKSI0590-55-83 15:38:00 Test Item Value Reference Range Interpretation Comments INR (test code = INR) 1.01 1 0.85-1.17 [facility] QmqcmwzFNMHSLBXNM8305-56-50 15:38:0017.0[facility]ann[facility] 2017-11-17 15:38:0033.7[facility] GqxoksyPFCFCSCAAA5802-31-36 15:38:07628Tipfvxzf XsvrqbcIKYHWXOCHC3172-84-23 15:38:008.3[facility] DyqcmbfILYQRWOLUV1805-41-70 15:38:0086.3[facility] NepthyvUJZNYEHTKL4416-64-62 15:38:00 Test Item Value Reference Range Interpretation Comments MCH (test code = MCH) 29.1 pg 27.0-31.0 [facility] BowtirbCQWRKKSHYQ7054-99-35 15:38:0035.8[facility]ann[facility] 2017-11-17 15:38:0012.1[facility] ZmipwahOHFJGWHXAT5897-92-93 15:38:007.9[facility] UnlvdhrPVMJCYRBYI4624-66-69 15:38:004.15[facility] OqfwatmDFIJJREXSZ1258-46-18 15:38:004.6[facility] TfcrbggSUXSKBBABK0543-16-03 15:38:002.3[facility] QEXZJGHGFX1610-92-11 15:38:001.0[facility] TryrieqJFVFHXIOHQ7436-31-73 15:38:000.7 [facility] JdrgmxfJTWVWNCBTG4990-03-61 15:38:001.4[facility]HE[facility] 2017-11-17 15:38:000.2[facility] UpvqljpSLXXQDOVJC0892-63-08 15:38:0013.1[facility] XdcvqhmTCUSCYEZGN8511-62-69 15:38:009.5[facility] NskzksrWYXEPVDQSO4360-18-02 15:38:0017.2[facility] OpnnhfzGFDFIONCHM1764-18-75 15:38:0057.9[facility] PKEBARSUKCQD3225-54-13 15:38:10434Abipkmdy JzrbterZSYOYHVOBGZT0142-84-47 15:38:003.8[facility] DizdqmqLUEIBDYFKHZE9074-68-58 15:38:76161Gwuwbpbn [facility] RSQYNOUMQUNV5293-91-53 15:38:0015[facility] DdckupiNRPSYFCPCYHS4496-69-01 15:38:00 3.96[facility] PgefdnbJPWPBERBYHYH9517-35-01 15:38:0030[facility] UMPYGTGZHZWA2608-53-96 15:38:008.2[facility] EupaqruZDRXADZAYMQE0280-70-15 15:38:0032[facility] KqcerqlSPLHGHINUEZW5906-92-56 15:38:009.8[facility] TBZWYRPMAGFZ6528-38-77 15:38:91766Gbdsfffe CtbcafzTNZLZLJCTW3938-94-00 15:38:00 Test Item Value Reference Range Interpretation Comments PT (test code = PT) 13.3 s 12.0-14.7 [facility] PsbhwdeGOGIMCDWCC0312-02-31 15:38:00 Test Item Value Reference Range Interpretation Comments PTT (test code = PTT) 31.9 s 22.9-35.8 [facility] HscorfbFJGNZNRTDR5749-45-34 15:38:00 Test Item Value Reference Range Interpretation Comments INR (test code = INR) 1.01 1 0.85-1.17 [facility] RakjewyNVWGNIRARB5559-80-60 15:38:0017.0[facility] 2017-11-17 15:38:0033.7[facility] SurxwyyIMPBAQIMHB8035-46-45 15:38:68627Diaoloro ZrydkoaWOLFBALIYN4414-07-00 15:38:008.3[facility] SmwwlsxOVOQZCQDCQ9809-17-57 15:38:0086.3[facility] LgyekktZEZDTPTGWO4100-38-78 15:38:00 Test Item Value Reference Range Interpretation Comments MCH (test code = MCH) 29.1 pg 27.0-31.0 [facility] IvrlmcxSQQEWTZVCE0329-36-07 15:38:0035.8[facility] 2017-11-17 15:38:0012.1[facility] JfmfurcLTGMKFMHRB3680-84-25 15:38:007.9[facility] LcxrkhnMSIWSVVWNC0024-58-54 15:38:004.15[facility] MjvggsyLFWNCRTQVT4839-43-55 15:38:004.6[facility] MkheilwMXBNXOKWDK2405-58-77 15:38:002.3[facility] CCFEMAXMJZ1878-70-07 15:38:001.0[facility] BwyezilYUHDPWVYLN3572-22-93 15:38:000.7 [facility] DesltdzPSMPCVNIMT8190-08-30 15:38:001.4[facility] 2017-11-17 15:38:000.2[facility] YrhsdiwMFSSSZOJME3010-06-74 15:38:0013.1[facility] JoblldkIKBTQLPBME1136-93-69 15:38:009.5[facility] RgjfavbEQMOSFCZTZ7431-13-48 15:38:0017.2[facility] GprsjxeUSBFJEILJG4413-44-76 15:38:0057.9[facility] GEZIQVXCEFRM0889-84-52 15:38:42841Ordmvkeq GhkxivqAYSJPNZCYLAY7980-47-52 15:38:003.8[facility] NwvislaESFFDKJGSDGD5319-53-84 15:38:42260Gkanpuiu [facility] DFYIDOOWCZVJ2061-21-63 15:38:0015[facility] ZfnahjtWTIWCREXLVXP5207-52-80 15:38:00 3.96[facility] DubmlxiDIIDKYCMXVLB9264-15-72 15:38:0030[facility] TEKYCJQIHRBT4931-48-15 15:38:008.2[facility] YuwoigtYFZGWAUXGZVX6670-01-47 15:38:0032[facility] AtdztehDRAFVWAIUCZH5879-20-87 15:38:009.8[facility] SPMTHRGCBADP8501-21-25 15:38:57771Fawhoxyi FkmisnxUUYIDZWFOQ6308-80-08 15:38:00 Test Item Value Reference Range Interpretation Comments PT (test code = PT) 13.3 s 12.0-14.7 [facility] KdimgqeIQLKGLVZEN9523-35-00 15:38:00 Test Item Value Reference Range Interpretation Comments PTT (test code = PTT) 31.9 s 22.9-35.8 [facility] GsaprebIQKWGBDVKK8297-80-89 15:38:00 Test Item Value Reference Range Interpretation Comments INR (test code = INR) 1.01 1 0.85-1.17 [facility] GgkdbrsMELXPTVECZ6931-44-85 15:38:0017.0[facility] 2017-11-17 15:38:0033.7[facility] LqyqbvnLBTGKFXIYC4798-80-75 15:38:74297Rfgopfjg HrvoczjGSAYOYMBIY0699-51-89 15:38:008.3[facility] UtkjcfmYESPWLNMGY0295-34-28 15:38:0086.3[facility] WjxiocaGVLJTJPTJW2152-66-31 15:38:00 Test Item Value Reference Range Interpretation Comments MCH (test code = MCH) 29.1 pg 27.0-31.0 [facility] JtmdinaBMPWHEZCOR2068-49-86 15:38:0035.8[facility]HE[facility] 2017-11-17 15:38:0012.1[facility] PcvjdplLBVMJKRJDF2899-51-50 15:38:007.9[facility] EkoldkxUIERCTJDXR5554-82-55 15:38:004.15[facility] UdzstygAZWKYETWYB0576-82-97 15:38:004.6[facility] PzstlqvQAJOEYXRKV7185-58-60 15:38:002.3[facility] QZQTTVAVFX2595-59-47 15:38:001.0[facility] VswpwyuCMBCLOOCFU3449-71-87 15:38:000.7 [facility] AnpknkgCZVFJYBEPS4097-63-16 15:38:001.4[facility]annHE[facility] 2017-11-17 15:38:000.2[facility] YsfnrjhPYFNSZLRAB1834-63-33 15:38:0013.1[facility] XkicuywAXPHGZRNLF4661-21-36 15:38:009.5[facility] UzztglcFCMGXJNLGN7272-45-26 15:38:0017.2[facility] AtsfixfYGFHFEGOEF6274-33-89 15:38:0057.9[facility] TQUCLLJPZB1291-53-18 22:18:00Negative *NA*(10/20/17 4:18 PM)[facility] VCBZPOSHMN7493-99-37 22:18:00Negative *NA*(10/20/17 4:18 PM)[facility] NUMYGFRWXE4993-90-71 22:18:00Negative *NA*(10/20/17 4:18 PM)[facility] KGSBSXRIKQ5864-02-02 22:18:00Negative *NA*(10/20/17 4:18 PM)[facility] RYPDXTHQUI2324-36-20 22:18:00Negative *NA*(10/20/17 4:18 PM[facility] RXGSPCOYOH8184[facility]49-20 22:18:00Negative *NA*(10/20/17 4:18 PM[facility] JVNQDUQAGL8131-52-23 22:18:00Negative *NA*(10/20/17 4:18 PM)[facility] CKWJMOORXI5254-31-96 22:18:00Negative *NA*(10/20/17 4:18 PM)[facility] RDJMMGNYQP7654-88-63 22:18:00Negative *NA*(10/20/17 4:18 PM)[facility] UOJFDTNOLI1531-84-93 22:18:00Negative *NA*(10/20/17 4:18 PM)[facility] TARVJJHREH0579-61-47 22:18:00Negative *NA*(10/20/17 4:18 PM)[facility] NJMXNLVUUB0959-16-30 22:18:00Negative *NA*(10/20/17 4:18 PM)[facility] QAXPPNJAPW4257-79-03 22:18:00Negative *NA*(10/20/17 4:18 PM)[facility] JFFQOFEHQT4806-69-23 22:18:00Negative *NA*(10/20/17 4:18 PM)[facility] YLJYXMPJUE2040-65-46 22:18:00Negative *NA*(10/20/17 4:18 PM)[facility] IYXSQWDFIL4903-26-73 22:18:00Negative *NA*(10/20/17 4:18 PM)[facility] SENZHTTUIJ8610-58-09 22:18:00Negative *NA*(10/20/17 4:18 PM)[facility] ZWEOBMCQEU4167-43-96 22:18:00Negative *NA*(10/20/17 4:18 PM)[facility] QMSSFMNJPKSY5614-98-51 20:31:004.2[facility] BqnphqlLCNSSJKXODZO8524-95-77 20:31:004.2[facility] YaiprpfDAQJBBFENGCP0341-26-07 20:31:004.2[facility] UITRIJYYFUYJ1966-85-41 20:31:004.2[facility] RltuawgHPNYJVEDGWKW0181-80-95 20:31:004.2[facility] NmgzfonYDWOHSNTAUDQ1532-76-79 20:31:004.2[facility] LDHNLXQPWVJV4711-43-74 20:31:004.2[facility] ThlvwwvGTJGDKFVBNSS7302-38-21 20:31:004.2[facility] BzddtmlAMPLKJWWVEDG1580-77-16 20:31:004.2[facility] CHEM BWCEO1563-57-45 18:35:0012[facility]annCHE[facility] OVMOI6515-50-76 18:35:0010.5 [facility] JGSMU2427-87-63 18:35:001.19[facility]annCHE[facility] PANEL 2017-10-20 18:35:0031.0[facility]annCHE[facility] ALPOP5943-48-50 18:35:0015.0[facility]annCHE[facility] JFUAM6872-69-47 18:35:004.8[facility]annCHE[facility] WLFDC2976-66-34 18:35:0098[facility]annCHE[facility] PUZQN7719-36-65 18:35:03058Ynscgcvh HermannCHEM FDTUV6109-30-85 18:35:0023[facility]annCHE[facility] CBAIH1784-48-11 18:35:0040 [facility]ann[facility] DPYEI4055-79-12 18:35:004.0[facility]annCHE[facility] PANEL 2017-10-20 18:35:55681Fpbkyizc HermannCHEM SIXBS5980-62-76 18:35:0012[facility]annCHE[facility] NAETH0217-32-01 18:35:0010.5[facility]annCHE[facility] OMWLO6264-13-61 18:35:001.19[facility]annCHE[facility] VUKYJ6528-28-82 18:35:0031.0[facility] CHEM EALOG9060-62-84 18:35:0015.0[facility]annCHE[facility] BBPVL8267-84-15 18:35:00 4.8[facility]annCHE[facility] DLZSG3415-92-51 18:35:0098[facility]annCHE[facility] PANEL 2017-10-20 18:35:15837Busavnat HermannCHEM AGDDS2575-63-97 18:35:0023[facility]annCHE[facility] ZXFAL1700-54-65 18:35:0040[facility]annCHE[facility] GJXJZ3815-78-74 18:35:004.0[facility]ann[facility] TBZZU5175-32-09 18:35:39467Jcascnqj HermannCHEM CYZUO0167-05-86 18:35:0012[facility]annCHE[facility] EODXK2566-82-58 18:35:0010.5 [facility]ann[facility] OSFLH4138-33-52 18:35:001.19[facility]annCHEM PANEL 2017-10-20 18:35:0031.0[facility]ann[facility] DNAKU0601-90-61 18:35:0015.0[facility]annCHE[facility] VBFFY2901-83-34 18:35:004.8[facility]annCHE[facility] WMBLZ0880-90-20 18:35:0098[facility]annCHE[facility] GDKTJ9344-27-37 18:35:99246Sktixnur HermannCHEM SOSPQ8917-67-30 18:35:0023[facility]annCHE[facility] KMMFG3715-33-25 18:35:0040 [facility]annCHE[facility] UZKHV5013-57-42 18:35:004.0[facility]annCHEM PANEL 2017-10-20 18:35:47338Nwierbjq HermannCHEM RBXKQ5023-22-82 18:35:0012[facility]annCHEM UUASN6476-94-71 18:35:0010.5[facility]annCHE[facility] JIBIA7982-12-23 18:35:001.19[facility]annCHE[facility] GAKXR4003-21-23 18:35:0031.0[facility] CHEM VIANB3803-37-65 18:35:0015.0[facility]annCHE[facility] UGAJN9546-20-87 18:35:00 4.8[facility]annCHEM BUFFA6589-96-43 18:35:0098[facility]annCHE[facility] PANEL 2017-10-20 18:35:84571Xoybtozs HermannCHEM YEEMS8621-65-00 18:35:0023[facility]annCHE[facility] XFZIV2375-77-34 18:35:0040[facility]annCHE[facility] LEVLR0243-46-06 18:35:004.0[facility]annCHE[facility] JRBAT4100-34-83 18:35:86824Cmsmjkil HermannCHEM CNPDF6670-92-95 18:35:0012[facility]annCHE[facility] KKIUO6990-05-99 18:35:0010.5 [facility]annCHE[facility] VYZKU8108-75-17 18:35:001.19[facility]annCHEM PANEL 2017-10-20 18:35:0031.0[facility]annCHE[facility] TVFIP5791-85-59 18:35:0015.0[facility]annCHE[facility] MMYZT8471-78-39 18:35:004.8[facility]annCHE[facility] BTOFV4074-31-95 18:35:0098[facility]annCHE[facility] CHAAX6507-71-65 18:35:43158Nyykumtj HermannCHEM MGFAK8153-49-96 18:35:0023[facility]annCHE[facility] ZBGKA6624-50-23 18:35:0040 [facility]annCHE[facility] OQPSZ1685-61-92 18:35:004.0[facility]annCHEM PANEL 2017-10-20 18:35:08309Dxkulpfc HermannCHEM IOBEQ7418-61-05 18:35:0012[facility]annCHE[facility] NEBSZ0918-37-48 18:35:0010.5[facility]annCHE[facility] SLEZM9983-58-68 18:35:001.19[facility]annCHE[facility] WQLWJ8361-78-36 18:35:0031.0[facility] CHEM PRJVZ5493-71-84 18:35:0015.0[facility]annCHE[facility] ILWNC1257-90-73 18:35:00 4.8[facility]annCHEM SJZYG2224-07-13 18:35:0098[facility]annCHE[facility] PANEL 2017-10-20 18:35:14582Fcwiiysp HermannCHEM GZOHX7314-44-11 18:35:0023[facility]annCHE[facility] ECBRT2501-61-73 18:35:0040[facility]annCHE[facility] BRSIQ6649-55-09 18:35:004.0[facility]annCHE[facility] DUCBH6794-30-54 18:35:23957Dcdipoes HermannCHEM PXMPY6220-77-79 18:35:0012[facility]annCHE[facility] TKSTL8718-64-53 18:35:0010.5 [facility]annCHE[facility] JNZSE0844-36-45 18:35:001.19[facility]annCHE[facility] PANEL 2017-10-20 18:35:0031.0[facility]annCHE[facility] RKUFI1566-59-85 18:35:0015.0[facility]annCHE[facility] TEUEN4795-61-56 18:35:004.8[facility]annCHE[facility] XAVYZ3477-91-52 18:35:0098[facility]annCHE[facility] IFNMT4931-54-47 18:35:06571Pldniikr HermannCHEM AZMIN4435-34-78 18:35:0023[facility]annCHEM NQHCB0519-61-94 18:35:0040 [facility]annCHE[facility] KZHRU1207-99-31 18:35:004.0[facility]annCHEM PANEL 2017-10-20 18:35:15874Qozmuphk HermannCHEM NDPEY8905-06-50 18:35:0012[facility]annCHEM EPNCT4095-09-28 18:35:0010.5[facility]annCHE[facility] WRAKC9291-74-25 18:35:001.19[facility]annCHE[facility] MJDNR4352-01-55 18:35:0031.0[facility] CHEM QOTXL8774-39-57 18:35:0015.0[facility]annCHEM XFFPI9027-85-82 18:35:00 4.8[facility]annCHEM DCTCC5671-80-57 18:35:0098[facility]annCHEM PANEL 2017-10-20 18:35:59004Ugmxjooo HermannCHEM FYQEA5745-19-97 18:35:0023[facility]annCHEM AELUL9072-39-28 18:35:0040[facility]annCHE[facility] KDDFJ0180-42-97 18:35:004.0[facility]annCHE[facility] METAF4866-08-17 18:35:95824Ivhmescd HermannCHEM TPZBK5695-21-66 18:35:0012[facility]annCHE[facility] XSCSL3132-13-24 18:35:0010.5 [facility]annCHE[facility] VKTKI7082-14-09 18:35:001.19[facility]annCHEM PANEL 2017-10-20 18:35:0031.0[facility]annCHEM QENBW5357-18-17 18:35:0015.0[facility]annCHE[facility] YMSNS6328-58-05 18:35:004.8[facility]annCHE[facility] RRBST9136-80-63 18:35:0098[facility]annCHE[facility] WEXGB3032-16-93 18:35:39680Whbpascs HermannCHEM OFAOW2687-50-79 18:35:0023[facility]annCHEM IXVIO7547-11-14 18:35:0040 [facility]annCHE[facility] AJPOD2073-94-61 18:35:004.0[facility]annCHEM PANEL 2017-10-20 18:35:62537Iumyokpa HermannBLOOD BANK LEQMLZE3838-46-47 03:59:00 Negative (10/19/17 9:59 PM)[facility] VRLZOSK5117-26-78 03:59:00 Negative (10/19/17 9:59 PM)[facility] DWEVJOK8038-00-98 03:59:00 Negative (10/19/17 9:59 PM)[facility] TTFKQKR8047-22-34 03:59:00 Negative (10/19/17 9:59 PM)[facility] DTEOKEW2218-87-35 03:59:00 Negative (10/19/17 9:59 PM)[facility] PESPQBZ7906-73-02 03:59:00 Negative (10/19/17 9:59 PM)[facility] ENJGPVA3473-13-15 03:59:00 Negative (10/19/17 9:59 PM)[facility] MLRTUIG5376-06-31 03:59:00 Negative (10/19/17 9:59 PM)[facility] TAPWUSS1326-66-18 03:59:00 Negative (10/19/17 9:59 PM)[facility] VinwaipTPCSKSDXFF3219-04-89 02:25:00 Test Item Value Reference Range Interpretation Comments PTT (test code = PTT) 34.7 s 22.9-35.8 [facility]ArstyruIGKYGNLZQP1024-32-25 02:25:00 Test Item Value Reference Range Interpretation Comments INR (test code = INR) 1.00 1 0.85-1.17 [facility] CenterGkpxrbsPKESVDMCZH9518-94-60 02:25:00 Test Item Value Reference Range Interpretation Comments PT (test code = PT) 13.2 s 12.0-14.7 [facility] CenterRuqdgplMDXUGBYCVO9393-10-69 02:25:00 Test Item Value Reference Range Interpretation Comments PTT (test code = PTT) 34.7 s 22.9-35.8 [facility] CenterHouwwkkXQXDMTIIBW0029-76-69 02:25:00 Test Item Value Reference Range Interpretation Comments INR (test code = INR) 1.00 1 0.85-1.17 [facility] CenterLslrxuaMDPSTKTKHJ3287-49-89 02:25:00 Test Item Value Reference Range Interpretation Comments PT (test code = PT) 13.2 s 12.0-14.7 [facility] CenterIdxuaxdOAMCZYEGGM4119-91-59 02:25:00 Test Item Value Reference Range Interpretation Comments PTT (test code = PTT) 34.7 s 22.9-35.8 [facility] CenterDbqpqlrAIYEURSSNX1342-10-39 02:25:00 Test Item Value Reference Range Interpretation Comments INR (test code = INR) 1.00 1 0.85-1.17 [facility] CenterVsugvrnFSCEZWIBVQ4839-28-87 02:25:00 Test Item Value Reference Range Interpretation Comments PT (test code = PT) 13.2 s 12.0-14.7 [facility] CenterUyzjbrsMCDHBXDJZS9260-11-32 02:25:00 Test Item Value Reference Range Interpretation Comments PTT (test code = PTT) 34.7 s 22.9-35.8 [facility] CenterHatyugzBOJVSDMZXP4053-67-52 02:25:00 Test Item Value Reference Range Interpretation Comments INR (test code = INR) 1.00 1 0.85-1.17 [facility] CenterKyyyqqhCSKCLYJPCB3461-88-34 02:25:00 Test Item Value Reference Range Interpretation Comments PT (test code = PT) 13.2 s 12.0-14.7 [facility] CenterEqunjpbOJFPGBUHTV2662-97-40 02:25:00 Test Item Value Reference Range Interpretation Comments PTT (test code = PTT) 34.7 s 22.9-35.8 [facility] CenterPywlsazKZOKCCUSKV1069-20-24 02:25:00 Test Item Value Reference Range Interpretation Comments INR (test code = INR) 1.00 1 0.85-1.17 [place] 571378-02-28 02:25:00 Test Item Value Reference Range Interpretation Comments PT (test code = PT) 13.2 s 12.0-14.7 [facility] CenterKhibnkvGNNQIXSUDB1846-84-79 02:25:00 Test Item Value Reference Range Interpretation Comments PTT (test code = PTT) 34.7 s 22.9-35.8 [facility] CenterOnhtvqjULTZRRYYGS7776-05-34 02:25:00 Test Item Value Reference Range Interpretation Comments INR (test code = INR) 1.00 1 0.85-1.17 [place] 571378-02-28 02:25:00 Test Item Value Reference Range Interpretation Comments PT (test code = PT) 13.2 s 12.0-14.7 [facility] CenterQwnwwemFFLKZTTJNE4547-63-12 02:25:00 Test Item Value Reference Range Interpretation Comments PTT (test code = PTT) 34.7 s 22.9-35.8 [facility] CenterWjlvayiDLVICPNNDG9244-85-27 02:25:00 Test Item Value Reference Range Interpretation Comments INR (test code = INR) 1.00 1 0.85-1.17 [facility] CenterKuayayrRCKGAEXGHT4180-44-79 02:25:00 Test Item Value Reference Range Interpretation Comments PT (test code = PT) 13.2 s 12.0-14.7 [facility] CenterLbcelmqULVQCGJZBD0413-85-93 02:25:00 Test Item Value Reference Range Interpretation Comments PTT (test code = PTT) 34.7 s 22.9-35.8 [facility] CenterPuuaufpNTKQQMAICB4829-11-63 02:25:00 Test Item Value Reference Range Interpretation Comments INR (test code = INR) 1.00 1 0.85-1.17 [facility] CenterXncmpyeIFXEUOQXSN7174-18-10 02:25:00 Test Item Value Reference Range Interpretation Comments PT (test code = PT) 13.2 s 12.0-14.7 [facility] CenterHvfjwhdYLNKLOECZX6888-91-42 02:25:00 Test Item Value Reference Range Interpretation Comments PTT (test code = PTT) 34.7 s 22.9-35.8 [facility] GhfyrrrFSTBPCYQNH0538-28-15 02:25:00 Test Item Value Reference Range Interpretation Comments INR (test code = INR) 1.00 1 0.85-1.17 [facility] RxnifliZJHLCVWLJG4424-81-97 02:25:00 Test Item Value Reference Range Interpretation Comments PT (test code = PT) 13.2 s 12.0-14.7 [facility]CHE[facility] TPPHV4786-87-65 00:43:0012[facility]annCHEM PANEL 2017-10-20 00:43:008.5[facility]annCHEM HADNK9622-70-16 00:43:0025[facility]annCHE[facility] QLBRX3498-82-03 00:43:98406Ujbwbckg [facility]CHE[facility] GVMLW3196-17-19 00:43:003.9[facility]CHE[facility] QVEAZ3612-23-49 00:43:16306Qxdcirpu [facility] RCVJU5760-98-13 00:43:005.00[facility]annCHE[facility] YSNGU0380-42-09 00:43:0043 [facility]annCHE[facility] IXCOE7407-87-80 00:43:33849Ognaihzt [facility]annCHE[facility] PANEL 2017-10-20 00:43:0010.9[facility] UhxmxbqEASYGZNDMN0647-35-26 00:43:000.9[facility] ZrcuulcLDVCOHAHOU6830-86-52 00:43:000.2[facility] QwbwvgcKXYYIDKTOT1401-05-69 00:43:000.9[facility] AsqwqpoOWDAECTIEO9093-85-50 00:43:001.3[facility] TZLMWFFGQW2164-17-26 00:43:002.1[facility] NpxravlAXMLXKDJZD0357-75-61 00:43:007.5 [facility] FduatgjOROQQCZSZT1205-65-04 00:43:008.2[facility]annHEMATOLOGY 2017-10-20 00:43:008.2[facility] PafuywkVEBGBLAGJB0815-25-48 00:43:0012.0[facility] TuxoecnHSBHQIGJHP1871-32-09 00:43:0069.5[facility] WzhgnozYXAMXYSATI4983-16-42 00:43:008.1[facility] WgodrbuAOZBBVFRHR4535-81-74 00:43:0017.8[facility] IPBBMSCFZJ3801-64-39 00:43:52878Wwayytzr KjawecnKLGAPXZQKA4376-89-26 00:43:00 32.7[facility] WmehxjhGVQSJUPFQY9391-15-95 00:43:0011.4[facility]annHEMATOLOGY 2017-10-20 00:43:0034.9[facility] OxuqyoxEGAEOZRQEV9216-30-39 00:43:0089.1[facility] GytavjyEBLJAWPGDE0884-40-99 00:43:00 Test Item Value Reference Range Interpretation Comments MCH (test code = MCH) 29.2 pg 27.0-31.0 [facility] AmuoyzmYNEWRMHOYP2018-09-20 00:43:003.92[facility]annHEMATOLOGY 2017-10-20 00:43:0010.9[facility]annCHEM JLWIH2068-32-69 00:43:0012[facility]annCHE[facility] LJPYQ4422-68-07 00:43:008.5[facility]annCHEM UUBZI1578-24-53 00:43:0025[facility]annCHE[facility] NFWZV0963-96-76 00:43:80667Oqeuwufz [facility]annCHE[facility] ILXFA3023-25-50 00:43:003.9[facility]annCHE[facility] ABZEK1339-88-44 00:43:77247 [facility]CHE[facility] UFGEO9561-86-54 00:43:005.00[facility]annCHEM PANEL 2017-10-20 00:43:0043[facility]annCHE[facility] CUZLI2624-96-14 00:43:00869Ngfustcf [facility]annCHE[facility] JHRBQ6306-90-31 00:43:0010.9[facility] LqznyysSZXCKIQWWV0285-68-15 00:43:000.9[facility] IhyrwnoRIPUSICZJE7891-36-76 00:43:000.2[facility] XOYBXBDJPL1752-56-84 00:43:000.9[facility] ItprndfVQBMWXZUVR7377-24-28 00:43:001.3 [facility] HlavhxsGQGKTZBLYN9319-87-36 00:43:002.1[facility]annHEMATOLOGY 2017-10-20 00:43:007.5[facility] JygatdnCBKSRBXRCB9006-46-67 00:43:008.2[facility] CahaxqzVDVERPBNPN7571-36-68 00:43:008.2[facility] EjyjiphECCIZCFVHX1748-72-98 00:43:0012.0[facility] SnsmvacAYORGERFOA0727-86-43 00:43:0069.5[facility] ONEOXYRTNB7857-85-49 00:43:008.1[facility] KjoobidUYLTAEHOAP9232-12-86 00:43:00 17.8[facility] ZyddracOTMVRLJTUG0514-05-56 00:43:95335Oapahafk HermannHEMATOLOGY 2017-10-20 00:43:0032.7[facility] XtkepufBWDBZCZOQH4327-97-15 00:43:0011.4[facility] FpgmnstFKDMHDDURA4787-59-69 00:43:0034.9[facility] ZhycefvPHHWXTUEHZ3920-19-35 00:43:0089.1[facility] EudgwxiYFKNQPOPQB9403-10-67 00:43:00 Test Item Value Reference Range Interpretation Comments MCH (test code = MCH) 29.2 pg 27.0-31.0 [facility] FodltwfPMSNNGUNNU0750-41-56 00:43:003.92[facility] HermannHEMATOLOGY 2017-10-20 00:43:0010.9[facility]annCHEM XXJLX2436-60-10 00:43:0012[facility]annCHEM JMVSH7005-02-86 00:43:008.5[facility]annCHEM JJQWY7686-86-52 00:43:0025[facility]annCHEM BZPUN5891-29-15 00:43:81716Nhakgqcw [facility]annCHE[facility] GGKZR4883-35-98 00:43:003.9[facility]annCHE[facility] PTEIS8761-56-41 00:43:76055 [facility]CHE[facility] QMUCB8540-63-71 00:43:005.00[facility]annCHEM PANEL 2017-10-20 00:43:0043[facility]annCHEM IIIBH0246-36-13 00:43:74032Pexjedww [facility]annCHEM MXSVQ7376-40-64 00:43:0010.9[facility] LncooxhLUUIATTKNP0619-72-98 00:43:000.9[facility] QjrtdtzLRGDJGRGQM0221-96-95 00:43:000.2[facility] DOMUNCQEGO2491-14-45 00:43:000.9[facility] GobketkMFVMBDANMA1299-81-94 00:43:001.3 [facility] JxgxhwpULARUJJKZD6539-71-60 00:43:002.1[facility]annHEMATOLOGY 2017-10-20 00:43:007.5[facility] EtwkrepCRUNVFOPMH4384-50-05 00:43:008.2[facility] FkvbgjePETARIZUAT7454-45-45 00:43:008.2[facility] RjnvlwqRRJMWXZRRM6278-45-32 00:43:0012.0[facility] OrqsgnuHQDLKIYYRQ8847-36-39 00:43:0069.5[facility] DUUXGGHMED7077-95-11 00:43:008.1[facility] UuylrxmXNTBOBUFUP4739-70-64 00:43:00 17.8[facility] UpfqxnbFTWJYDXPIU9289-61-93 00:43:09179Wtvbsfwf HermannHEMATOLOGY 2017-10-20 00:43:0032.7[facility] LvbgnaiWVDPDVHBAW4411-94-44 00:43:0011.4[facility] WkfkojyZALFCWOZGV9919-87-51 00:43:0034.9[facility] UwomascQILZTDHBRT5918-78-81 00:43:0089.1[facility] QqnqqpnUSPNTYBZOA6075-08-23 00:43:00 Test Item Value Reference Range Interpretation Comments MCH (test code = MCH) 29.2 pg 27.0-31.0 [facility] BncmcbkWBXZCJCYFK2092-37-17 00:43:003.92[facility] HermannHEMATOLOGY 2017-10-20 00:43:0010.9[facility]annCHEM UBZLK5552-18-26 00:43:0012[facility]annCHEM ANMEL4262-25-97 00:43:008.5[facility]annCHEM GNSJG6474-43-27 00:43:0025[facility]annCHEM GAHFX0363-55-40 00:43:88216Gwqpdrgb [facility]annCHE[facility] JNQQO1759-00-88 00:43:003.9[facility]annCHEM OVBAO1249-52-89 00:43:91561 [facility]CHE[facility] KIMKC2462-10-40 00:43:005.00[facility]annCHEM PANEL 2017-10-20 00:43:0043[facility]annCHEM SLZUJ6586-58-40 00:43:11548Kgevwssm [facility]annCHEM SYPUS4987-35-26 00:43:0010.9[facility] HbqaryjUIDNIODORA1650-70-82 00:43:000.9[facility] EqtarfuGDIJUPBVWN1214-44-54 00:43:000.2[facility] XATWNAQEGS2198-35-12 00:43:000.9[facility] JaxezbzWFCBUNSPUE4139-77-06 00:43:001.3 [facility] VurimuzJQHSAJEIHQ7259-23-66 00:43:002.1[facility] HermannHEMATOLOGY 2017-10-20 00:43:007.5[facility] TouuofkFCIMXXZVBW8566-16-20 00:43:008.2[facility] MutrladZLOGWIEZFN4931-86-54 00:43:008.2[facility] FywakyxQHMCPZLLWC2462-19-53 00:43:0012.0[facility] MbmdcisPQTPSWGWSP0315-66-82 00:43:0069.5[facility] KRNEJQTOWI0923-00-74 00:43:008.1[facility] LxwagdsGJEEHSWDOR0773-30-43 00:43:00 17.8[facility] VihkkwtAGUPNQVKUY2018-31-55 00:43:57236Sdlgqmwh HermannHEMATOLOGY 2017-10-20 00:43:0032.7[facility] FnagueiNQQYWHZHOP8162-83-16 00:43:0011.4[facility] EbvwpzjVICNWBQMRT5329-11-76 00:43:0034.9[facility] RaxyjfkTBQQYXSBGV6058-61-94 00:43:0089.1[facility] BtkogkqCUTJBQFQZF5676-33-70 00:43:00 Test Item Value Reference Range Interpretation Comments MCH (test code = MCH) 29.2 pg 27.0-31.0 [facility] TinmoggGDHPSNHLTJ1445-87-30 00:43:003.92[facility] HermannHEMATOLOGY 2017-10-20 00:43:0010.9[facility] HermannCHEM GHJKA4595-39-15 00:43:0012[facility]annCHEM JLILO4429-15-14 00:43:008.5[facility]annCHEM KIRRS9909-99-87 00:43:0025[facility]annCHEM PLEBF8723-36-87 00:43:10279Zsuykyrt [facility]annCHE[facility] MWTWF6516-37-94 00:43:003.9[facility]annCHEM ZPENH6143-14-42 00:43:43244 [facility]annCHE[facility] KPLAJ5698-89-85 00:43:005.00[facility]annCHEM PANEL 2017-10-20 00:43:0043[facility]annCHEM MJFFC5126-92-97 00:43:49005Kxyoqvzs [facility]annCHEM QLNAV6450-77-82 00:43:0010.9[facility] DoqzcngNXOIOUIXXT6229-92-47 00:43:000.9[facility] FiltsckNKJGERBMTV5397-84-68 00:43:000.2[facility] SIFJZGPGCD3536-58-16 00:43:000.9[facility] BgdkiadCNNLSWPMBK4042-58-15 00:43:001.3 [facility] IsbinopBZIRFSOMTI9893-15-46 00:43:002.1[facility] HermannHEMATOLOGY 2017-10-20 00:43:007.5[facility] HcgutpfYWVWEDCIAC6112-43-05 00:43:008.2[facility] HppdxdtXXPFTWIDHW9824-33-18 00:43:008.2[facility] TazzhdyXNJXENRJBH4680-09-37 00:43:0012.0[facility] DdpazrqXNFDYUDOGQ0057-31-96 00:43:0069.5[facility] VXBPSQTLTU1227-10-14 00:43:008.1[facility] NuyiwwyQTFEYIYLUR5323-52-53 00:43:00 17.8[facility] BqhfcsbUFELYLMZWZ3868-52-38 00:43:09308Uijzxnhs HermannHEMATOLOGY 2017-10-20 00:43:0032.7[facility] IixesktRBDDCOUGVN2414-68-11 00:43:0011.4[facility] PhxhnesEKMCJSGFZN1741-42-07 00:43:0034.9[facility] NodvobzVTBXUHAXDS9794-18-08 00:43:0089.1[facility] KsvtzptRHWHFTCOSH3402-33-55 00:43:00 Test Item Value Reference Range Interpretation Comments MCH (test code = MCH) 29.2 pg 27.0-31.0 [facility] CwpzyqiBOICRTKZII9253-73-53 00:43:003.92[facility] HermannHEMATOLOGY 2017-10-20 00:43:0010.9[facility]annCHEM XKCYG7508-72-02 00:43:0012[facility]annCHEM PIJBH2246-38-50 00:43:008.5[facility]annCHEM YZTCP7958-91-40 00:43:0025[facility]annCHEM CJYGE7081-65-23 00:43:31932Rxnbsnco HermannCHEM ORKJA3492-79-67 00:43:003.9[facility]annCHEM LPCRD8232-57-94 00:43:41909 [facility]annCHE[facility] UTGTI6640-57-50 00:43:005.00[facility]annCHEM PANEL 2017-10-20 00:43:0043[facility]annCHEM TJZMP1112-62-27 00:43:01610Vgwsryyu HermannCHEM AHHLN1487-04-55 00:43:0010.9[facility] PokratlJCSQTVUBXZ2564-70-97 00:43:000.9[facility] YaautvaEGBSCJYLLQ6628-80-84 00:43:000.2[facility] TRTDCBBQGS0188-53-39 00:43:000.9[facility] NmbzjrwDDMMJTLMDY0494-51-25 00:43:001.3 [facility] TwltnurZJNJJNLOGK4448-24-23 00:43:002.1[facility] HermannHEMATOLOGY 2017-10-20 00:43:007.5[facility] SaukmauUXPNMACXDB6662-06-02 00:43:008.2[facility] UpyijtuLGQYTAJNBK2266-71-66 00:43:008.2[facility] ElpvuuwITYBHGXZUE3076-59-02 00:43:0012.0[facility] DkrebynQCNMBUYQAD6809-65-27 00:43:0069.5[facility] DIQYQZIWTR1393-31-59 00:43:008.1[facility] LjdonmqWYZHZVUZQB8216-02-25 00:43:00 17.8[facility] HdczvpaNFZAOADDFJ2582-95-65 00:43:31093Jkprlbmw HermannHEMATOLOGY 2017-10-20 00:43:0032.7[facility] LvfmtwzHUZYAQFYTM2151-37-65 00:43:0011.4[facility] CugmhpvFCXLUDIMUT9641-61-63 00:43:0034.9[facility] TdwgpbyENYYBSMQRD6462-83-11 00:43:0089.1[facility] BoymlqiVDFXUILNVQ7169-61-33 00:43:00 Test Item Value Reference Range Interpretation Comments MCH (test code = MCH) 29.2 pg 27.0-31.0 [facility] NkvgickHQDXIYYDSU7214-12-14 00:43:003.92[facility] HermannHEMATOLOGY 2017-10-20 00:43:0010.9[facility] HermannCHEM PAILL0409-52-01 00:43:0012[facility] HermannCHEM JIDTO8290-42-16 00:43:008.5[facility]annCHEM TRWCE4834-11-02 00:43:0025[facility]annCHEM VYBNW5946-35-92 00:43:39762Ngfemgqp [facility]annCHEM CLSSY9418-66-13 00:43:003.9[facility]annCHEM UFTEW0194-49-58 00:43:56435 [facility]annCHE[facility] AMEKW6932-78-38 00:43:005.00[facility] HermannCHEM PANEL 2017-10-20 00:43:0043[facility]annCHEM SKKAT0292-92-60 00:43:22615Twtmafcw [facility]annCHEM XFOQA0144-61-73 00:43:0010.9[facility] PhisbhaQHIAZQNLAM9422-98-39 00:43:000.9[facility] NiogltgPDSNFPLCGX2234-61-80 00:43:000.2[facility] QHBECPKPQW1876-46-51 00:43:000.9[facility] DfqdmqtFIRRJBAFOA4968-58-61 00:43:001.3 [facility] MspesvaWTWZDPKAHY1706-28-73 00:43:002.1[facility] HermannHEMATOLOGY 2017-10-20 00:43:007.5[facility] HfgvfkcMGMKLGPZYV2702-98-58 00:43:008.2[facility] HmzswqbQQQCIABTLL3674-66-93 00:43:008.2[facility] HydcgkyTHMCOJJWYY7850-19-37 00:43:0012.0[facility] BabejjcIIOMOEWREP7952-42-39 00:43:0069.5[facility] OJNDXQVRKB7066-80-83 00:43:008.1[facility] ZuhxdxjETXBHEAPIN1392-90-37 00:43:00 17.8[facility] UxhjuobDTOMYTFDMP1123-28-68 00:43:25021Qwabvuyn HermannHEMATOLOGY 2017-10-20 00:43:0032.7[facility] NkwvtmwDNWSHGBJON8530-50-95 00:43:0011.4[facility] VjxedclWIMWFTKRJM3993-06-31 00:43:0034.9[facility] JlfgeynDODFHMFTDY2432-06-60 00:43:0089.1[facility] DaifipuSPAFXMYSEX5564-01-42 00:43:00 Test Item Value Reference Range Interpretation Comments MCH (test code = MCH) 29.2 pg 27.0-31.0 [facility] EvzhkkpFGMQKYDHEI3910-22-72 00:43:003.92[facility] HermannHEMATOLOGY 2017-10-20 00:43:0010.9[facility]annCHEM QJFLU5410-57-58 00:43:0012[facility]annCHEM QXUJC7334-18-86 00:43:008.5[facility]annCHEM VFPAV7088-85-42 00:43:0025[facility]annCHEM YXNRY1990-97-21 00:43:61946Msgkjxsz [facility]annCHE[facility] VMOAI2553-25-32 00:43:003.9[facility]annCHEM OOZWB5405-73-53 00:43:89471 [facility]annCHE[facility] ROTCI9916-87-58 00:43:005.00[facility]annCHEM PANEL 2017-10-20 00:43:0043[facility]annCHEM VPHOO6084-85-86 00:43:32606Yjexrwrz HermannCHEM LMGDD7283-31-78 00:43:0010.9[facility] OseigqzYZDGZPAVCV2604-09-62 00:43:000.9[facility] KzsomasPHGPSRFKLK5278-68-02 00:43:000.2[facility] AJEARTDGKD3656-20-85 00:43:000.9[facility] CrqfnwtIKQHOMADUR8132-40-31 00:43:001.3 [facility] IfrondbVAZFXOKJWD4778-42-68 00:43:002.1[facility]annHEMATOLOGY 2017-10-20 00:43:007.5[facility] RemeomsHMAFHDJZOR0693-11-28 00:43:008.2[facility] PgbooecHNNYBYWMPF2517-95-75 00:43:008.2[facility] JmgrqnsNZTMHAQKSI2419-73-80 00:43:0012.0[facility] SwxoiynOQOQXVICAU2346-89-12 00:43:0069.5[facility] HWSJJNSAUK0801-72-17 00:43:008.1[facility] NysupdeJVVUFNCSTS7524-22-33 00:43:00 17.8[facility] CquemruOEPPOGZOMN4300-20-98 00:43:72960Vdtpnouw HermannHEMATOLOGY 2017-10-20 00:43:0032.7[facility] XywsiuiEAOPYMFGMS6183-86-28 00:43:0011.4[facility] VcutlvqBWYCSHKULG6899-73-81 00:43:0034.9[facility] UzuquctFGAYKSLFKB4254-05-20 00:43:0089.1[facility] TgfiivpFZXNPSWLYY4562-39-53 00:43:00 Test Item Value Reference Range Interpretation Comments MCH (test code = MCH) 29.2 pg 27.0-31.0 [facility] RrkkxmdQMGQHDFCUU8272-22-95 00:43:003.92[facility]annHEMATOLOGY 2017-10-20 00:43:0010.9[facility]annCHEM ALXPQ6600-54-82 00:43:0012[facility]annCHEM KDIUQ4796-49-01 00:43:008.5[facility] HermannCHEM MUSOD7203-25-97 00:43:0025[facility]annCHEM BKPTU9597-59-27 00:43:93532Mqlenyzo HermannCHEM HUSIO5052-70-19 00:43:003.9[facility]annCHEM ZFQPM6622-73-92 00:43:52082 [facility]annCHE[facility] OXWRT3965-43-10 00:43:005.00[facility]annCHEM PANEL 2017-10-20 00:43:0043[facility]annCHEM BHDLN6226-36-77 00:43:09603Ztrwwqde HermannCHEM XGAWA0182-97-15 00:43:0010.9[facility] PbdigxoEATDMYWTII4487-04-69 00:43:000.9[facility] FqnktmbBURTEZQVYJ6956-75-18 00:43:000.2[facility] VAFNCIFEMM7314-17-74 00:43:000.9[facility] TdhwbkbIVFBXRUHNE3343-83-99 00:43:001.3 [facility] VqqclggANFMTLCOXF9612-37-98 00:43:002.1[facility] HermannHEMATOLOGY 2017-10-20 00:43:007.5[facility] KiwbskjAFQKKWUWEB9571-78-08 00:43:008.2[facility] ZztnctqNIDXQUECWD1952-16-48 00:43:008.2[facility] MsspbtiCBOAMCRVDM8944-90-64 00:43:0012.0[facility] RynjnomLPMACVNKTQ2315-27-24 00:43:0069.5[facility] DKWCRAZCED3451-02-90 00:43:008.1[facility] SiczeqiCOVNJQNXUZ9770-00-14 00:43:00 17.8[facility] NlidnkyZYBAHRMAHE8574-88-42 00:43:68464Ksvxtvge HermannHEMATOLOGY 2017-10-20 00:43:0032.7[facility] BuaxeqbQIGCJDSUTA5717-95-94 00:43:0011.4[facility] UmhcsvbPWSCTZYSSD8217-03-32 00:43:0034.9[facility] KacxuqjOAUKDNQQEV2950-75-09 00:43:0089.1[facility] XzcjljpHOXVPPRXTO2082-51-02 00:43:00 Test Item Value Reference Range Interpretation Comments MCH (test code = MCH) 29.2 pg 27.0-31.0 [facility] KivlxtxBJWFQDBTQE4556-31-02 00:43:003.92[facility]HEMATOLOGY 2017-10-20 00:43:0010.9[facility]annCHEM VUEQE4247-24-98 08:15:000.8[facility]annCHEM PBVRG3154-52-47 08:15:000.8[facility]annCHEM ZNTYN7220-37-06 08:15:000.8[facility]annCHEM PYPWA2521-60-27 08:15:000.8[facility]annCHEM WKGCR4232-02-72 08:15:000.8[facility]annCHEM OFOSM1137-30-40 08:15:000.8 [facility]annCHEM KJPCM8215-93-94 08:15:000.8[facility]annCHEM PANEL 2017-08-11 08:15:000.8[facility]annCHEM LHNMA9347-99-84 08:15:000.8[facility] AmxeafiOFEZRABVXM9396-89-09 08:00:00Negative *NA*(08/11/17 2:00 AM)[facility] KnzvtxuJARRTKMCLC5343-34-84 08:00:00Negative *NA*(08/11/17 2:00 AM)[facility] ZmazjohDKLUKWWLXU0654-14-96 08:00:00Negative *NA*(08/11/17 2:00 AM)[facility] CjtedvuGFUNQBBXBF5549-02-87 08:00:00Negative *NA*(08/11/17 2:00 AM)[facility] VsljmutWYZSTEKMSU7901-68-11 08:00:00Negative *NA*(08/11/17 2:00 AM)[facility] IpasywjFHVBVVMTLB1337-13-28 08:00:00Negative *NA*(08/11/17 2:00 AM)[facility] XqvqbkcOSYENBVTUN1940-92-90 08:00:00Negative *NA*(08/11/17 2:00 AM)[facility] KtqccuqEBLMOPKPHG9245-10-98 08:00:00Negative *NA*(08/11/17 2:00 AM)[facility] UzrvkilSEVFTRFIUE7981-78-26 08:00:00Negative *NA*(08/11/17 2:00 AM)[facility]annCARDIAC IILFSEX9952-93-00 22:15:000.03[facility]annELECTROLYTES 2017-08-10 22:15:0018.3[facility] UqojyegMTVFRLINNEWW9491-76-51 22:15:0013[facility] PpklcoiBUIPKWMYHYVD9491-74-28 22:15:000.8[facility] FhtlxttZOOSAJSVVIRN0265-42-87 22:15:003.5[facility] EjnnugiBYHIQVPOFBBX1023-01-81 22:15:0012[facility] UOJNVRVQSTUB9286-07-65 22:15:004.98[facility] NxqtanqJSAEEFVEZCDB5937-57-14 22:15:0064[facility] JxhjlujRWLOZAWBISFK4561-22-03 22:15:76146Drzoxhvb David KOSVBXELILPM0234-34-85 22:15:65731Ywzfbebo GysquqiBIBAKGTSWRKT0004-67-24 22:15:004.3[facility] CxkcexiALUUHKRJYSBK4147-28-45 22:15:45195Ujwzhfyv Mcfarlan PVWXQFAUDMLD0396-90-37 22:15:008.0[facility] GrwmqryECPSFIOZLBRE5154-66-33 22:15:0017[facility] HhnurfhMOBERNLPYWFX5915-60-84 22:15:000.3[facility] GEPBGGIIKCIN2627-26-41 22:15:0075[facility] HxllymxPWDATNLEOGVQ0070-00-36 22:15:00 16[facility] MpiijizSXMZSVBGXPXU7274-32-68 22:15:0027[facility]annELECTROLYTES 2017-08-10 22:15:002.8[facility] IgcanwzDWDRYDIEERTJ8448-00-43 22:15:006.3[facility] HchevdzUVVTRCMAGY1875-68-10 22:15:000.3[facility] BvbwnqhDEGURQJDBI4540-28-92 22:15:000.1[facility] QgpakcaMTQBEUOVEQ4051-84-88 22:15:000.4[facility] UEXBLEGLGX0959-40-53 22:15:000.9[facility] YxpvkbeRPXJTWSIXK9959-95-04 22:15:00 78.3[facility] VocwxfhSNLDSXJSUM2638-54-37 22:15:004.6[facility]annHEMATOLOGY 2017-08-10 22:15:001.0[facility] DlcqnqeBAJIJUPOQX1046-66-09 22:15:006.0[facility] ThgizufIWYSVFUGZY3055-10-66 22:15:004.3[facility] YurijhaKOCZCNULEC7250-93-56 22:15:0011.8[facility] HztycsjCASMYLQPTM9531-62-62 22:15:0025.2[facility] SBABDOJWMB2163-18-78 22:15:002.85[facility] NymwrylCFAAOVVPSZ2004-90-99 22:15:00 8.4[facility] SeolnwdHRWOYBAMOU4732-98-04 22:15:0033.4[facility]annHEMATOLOGY 2017-08-10 22:15:0088.5[facility] IjczrkmRZKRBEVUZU0142-73-42 22:15:00 Test Item Value Reference Range Interpretation Comments MCH (test code = MCH) 29.6 pg 27.0-31.0 [facility] VuhnqxuRVPDKVRROE4289-49-82 22:15:0014.8[facility]annHEMATOLOGY 2017-08-10 22:15:007.6[facility] LmnrjvuOPMMCWWASQ5568-27-72 22:15:63795Flmpjraa QzhisdmLGGOZJKZRU7225-64-63 22:15:008.6[facility] HermannCARDIAC LBJPKCD5757-81-05 22:15:000.03[facility] YwvkmjcRWRKFWNDQDKQ9251-89-21 22:15:0018.3[facility] SVUHEKIEZJYB6600-54-57 22:15:0013[facility] OtbacrtAEEDIFIZXJJH9917-93-97 22:15:00 0.8[facility] SynpqwoMLTBFGQHUNDP2281-13-69 22:15:003.5[facility] DIUYXSPYTERX4250-33-62 22:15:0012[facility] LnfbiobZLKCGEOQIRJT7744-01-06 22:15:00 4.98[facility] PmgzmqcNAPHGFXTJZSZ8851-93-85 22:15:0064[facility] OCBQZZCORLWU5071-11-58 22:15:71751Cqnxuojg OivpamnWOISOXLHZQKH5826-69-52 22:15:45173Zwghgtfw OnlybkkGTSNWKJEWWFF3339-20-86 22:15:004.3[facility] ITCMGNLUUSPA5036-18-97 22:15:29977Gypjpygs SejaiotOVMGGZYPBSXA1021-46-34 22:15:008.0[facility] ZdokuqeYONLZLBUBUIP5650-27-23 22:15:0017[facility] MLDFFNBOEFNZ9898-22-42 22:15:000.3[facility] IfsuyxxYSAXXUHWSXSK9898-74-20 22:15:0075[facility] ExnwhmzKPJKKITYIZXM0588-85-92 22:15:0016[facility] CQVFXOITWJVU2662-87-20 22:15:0027[facility] SshxukkQHUVNPXZVZCC4887-62-69 22:15:00 2.8[facility] UpanuekROYGNEOYWAOH7345-41-42 22:15:006.3[facility]annHEMATOLOGY 2017-08-10 22:15:000.3[facility] CswhysbBPRHZXPEDX4289-68-30 22:15:000.1[facility] MrglkrjQFATGTELMN1886-41-56 22:15:000.4[facility] CqyfcggWRPUMAECTP9863-82-27 22:15:000.9[facility] BdelgieEOHWMXTYOR6914-77-11 22:15:0078.3[facility] RZKLNLCFUW5323-79-49 22:15:004.6[facility] OgaslafGUGGUWXHOB7888-78-38 22:15:001.0 [facility] QjnubmcIJOLPKUKEE9319-11-28 22:15:006.0[facility]annHEMATOLOGY 2017-08-10 22:15:004.3[facility] BabxmmzIQARJLMQUV3548-04-20 22:15:0011.8[facility] EsktqncXREHDDKBRW3056-54-69 22:15:0025.2[facility] IvruytgXHVIVXJBUA5565-24-05 22:15:002.85[facility] LwkqaluXIDKOOHZLE2035-32-63 22:15:008.4[facility] BWHMCVCEFD4621-36-73 22:15:0033.4[facility] XxxcrcoJMXYHMLKQL4658-19-09 22:15:00 88.5[facility] CygpbbnLSYGTLBMHD1568-53-61 22:15:00 Test Item Value Reference Range Interpretation Comments MCH (test code = MCH) 29.6 pg 27.0-31.0 [facility] FzpcywbQNMTORAYYF5319-53-38 22:15:0014.8[facility]annHEMATOLOGY 2017-08-10 22:15:007.6[facility] WmdplqiTZZZDBVTQN9788-56-51 22:15:84807Imnqzkjr PyntunbFCQEMRGIMR4253-17-88 22:15:008.6[facility] HermannCARDIAC YAORRRE2361-70-63 22:15:000.03[facility] QiysrseAIWVPONQQCAR4948-27-46 22:15:0018.3[facility] EVBCYXMXSATM3616-75-40 22:15:0013[facility] PobcehiEUCVJJBHTMXU8499-46-09 22:15:00 0.8[facility] AxfqvouUFJOHOJOCKHY1842-81-48 22:15:003.5[facility] RPSSKKQICGRR1879-56-72 22:15:0012[facility] HgzcxssZAITXCVNNEFA5190-69-58 22:15:00 4.98[facility] TyadlkrNQGNUGXRTCOW9571-54-95 22:15:0064[facility] PZCWGETDUUZG1901-60-69 22:15:33511Kpsevumb XmoyipcEXZWNRHEJDOA2824-74-27 22:15:36588Rtqgrvfo YnovwcqZYGGEXYRJLQN9100-98-42 22:15:004.3[facility] VOZJPLXHGPHU6244-62-85 22:15:00177Bbuppcvx IznrswmBMHOKUTRFCSV9321-74-33 22:15:008.0[facility] XypelqiUSPSGDCUEBYR5657-82-24 22:15:0017[facility] XOFQBARPEGSV8227-57-27 22:15:000.3[facility] EwqnlenJRMNPGFWBXTN0946-01-64 22:15:0075[facility] BtzvlqoDFVOSLXSNJRC6694-06-54 22:15:0016[facility] ZXNIIBPORRBO8430-88-69 22:15:0027[facility] WbtegguPBWWZXQAWVBM7438-62-18 22:15:00 2.8[facility] BsckjhgVUNPAGNFUZPW1406-75-91 22:15:006.3[facility]annHEMATOLOGY 2017-08-10 22:15:000.3[facility] CmgsuakXTDBWZLSJY1514-71-77 22:15:000.1[facility] GiogshiYNLPQPILQA9079-77-83 22:15:000.4[facility] WvjmnbbMIYFBJBIPR7082-22-98 22:15:000.9[facility] HzaviycPOFXUXBSQD9161-76-46 22:15:0078.3[facility] CPYWPEXAQQ6198-91-97 22:15:004.6[facility] IluozqbHWGCTSVAPM5816-39-92 22:15:001.0 [facility] LwbbmynAELRUICQFJ3624-59-50 22:15:006.0[facility]annHEMATOLOGY 2017-08-10 22:15:004.3[facility] LxrahyiFRIPSRXCDU1485-46-71 22:15:0011.8[facility] GrycfmhPKVAYDKNQL4613-59-23 22:15:0025.2[facility] WpkatrxPYEPKIUBDR3946-32-52 22:15:002.85[facility] DyfvglqYZUYPFCSJY0836-37-46 22:15:008.4[facility] DDLWDEEFZC3492-28-25 22:15:0033.4[facility] XwzzpdrRCQSPPMIAT3794-67-16 22:15:00 88.5[facility] YybyujpUEPJDAQYCB3849-88-44 22:15:00 Test Item Value Reference Range Interpretation Comments MCH (test code = MCH) 29.6 pg 27.0-31.0 [facility] GbhwramKRWETOLEYM6000-10-74 22:15:0014.8[facility]annHEMATOLOGY 2017-08-10 22:15:007.6[facility] BfpvejgWVKNGRYMMZ8909-28-49 22:15:60746Uaovnlkw IughgjdQBOYTFIGJQ5151-40-05 22:15:008.6[facility] HermannCARDIAC IVFQIGV0582-54-99 22:15:000.03[facility] BhiyxsfQOJSPMGOOJVU5418-22-00 22:15:0018.3[facility] NFHEHCPVNCFL9189-21-48 22:15:0013[facility] SlwxbgsBQULRMQOZDWA0799-62-30 22:15:00 0.8[facility] PhygfbfIFGBRBHWJPFR3138-59-24 22:15:003.5[facility] ARGVQKKOOSXL0556-89-69 22:15:0012[facility] FupcqmyRXBGZWOXKZBQ4764-41-15 22:15:00 4.98[facility] RaqjchdBVPHUVFLLEPP6573-88-76 22:15:0064[facility] IZYQCKDWODYK1046-70-37 22:15:87674Huzinawc TzygstyKGZHDIJPNVBE0729-58-11 22:15:45674Hmyrtbrc CnpzwrxUVTMRKKDOZVM3477-87-79 22:15:004.3[facility] BMKITXPAKQQV3686-51-54 22:15:92539Acxcibjf OppwngfBNLINCZDTAWW1278-86-78 22:15:008.0[facility] WgxxnpcXBQEOIIBCUBJ7528-08-77 22:15:0017[facility] WVABJHFHHKWD0921-67-99 22:15:000.3[facility] ShhljgwBNKHPDQTDGCD0539-78-43 22:15:0075[facility] EbxdyrfNASIFXQIAEOV1806-31-23 22:15:0016[facility] BADQDWNLZUIS5362-19-17 22:15:0027[facility] WsnkrybMERJELACGENB9357-14-79 22:15:00 2.8[facility] VnbhbivSDGSWOQZMMII2378-77-25 22:15:006.3[facility]annHEMATOLOGY 2017-08-10 22:15:000.3[facility] QtftxdoUADSAIGIPZ5563-53-77 22:15:000.1[facility] UxhagiiEXSCSPPQOE3206-19-91 22:15:000.4[facility] OsqttotVJXXLXJGVS2861-15-35 22:15:000.9[facility] SrbcmjkGMMZALYUEM1298-21-05 22:15:0078.3[facility] KOOUWNIYFA3218-88-67 22:15:004.6[facility] XndqsbxPBNIRDOMIK2462-45-67 22:15:001.0 [facility] QcxytalITXAKNNIFF8657-53-89 22:15:006.0[facility]annHEMATOLOGY 2017-08-10 22:15:004.3[facility] HwwhmjtXORPXNMOUJ7197-33-83 22:15:0011.8[facility] YeubkixYGLRSUJNPM1466-40-09 22:15:0025.2[facility] WngtkodJHZXYRTPBP1261-69-54 22:15:002.85[facility] NtnxpttNIWYKFUOBM1663-80-03 22:15:008.4[facility] WSFTEIGJSH6349-37-37 22:15:0033.4[facility] EdzfmddBEEVGXRRRS6624-74-71 22:15:00 88.5[facility] VyhogszRWWQOLLNQX3630-93-99 22:15:00 Test Item Value Reference Range Interpretation Comments MCH (test code = MCH) 29.6 pg 27.0-31.0 [facility] XfufjvxJKKTIHBJSA3549-19-88 22:15:0014.8[facility]annHEMATOLOGY 2017-08-10 22:15:007.6[facility] ElazudfDZEYVZMRRG3188-31-27 22:15:10988Zuozeinw FzrlzffCJGUNXEHAV5504-96-84 22:15:008.6[facility] HermannCARDIAC JTVQPUT9088-75-03 22:15:000.03[facility] YzgpcxwSWMUKYXNXPCO1655-63-56 22:15:0018.3[facility] KJHCEVTBYJQC5053-30-81 22:15:0013[facility] TzgoxhoTGPWYHNZTEXX7221-31-96 22:15:00 0.8[facility] UsxiacnBLJECLWJZKYU8020-65-86 22:15:003.5[facility] SAPJOWIJDOSH6467-46-11 22:15:0012[facility] NjipzpbTLTCHPWKPGZY8707-80-52 22:15:00 4.98[facility] EyjuuprOJCQSVTCDCGP0043-46-90 22:15:0064[facility] CRLUODZAQEYC5452-34-05 22:15:14529Vewizcsp ZfiumxgWEAMKPMRPUGK4559-85-09 22:15:61104Trabwvxs ZuvvczrOWEJYKGECMTB5403-56-13 22:15:004.3[facility] RYKFPRJHZVKP7556-12-38 22:15:09949Nbkfjcxc ZakgrbvOVUURCRWDTMZ5477-52-43 22:15:008.0[facility] MtrhfunWIOSNAXKJBCT8959-18-59 22:15:0017[facility] MAMVLMYHPEJX5934-41-99 22:15:000.3[facility] BlgwargYWDJHATWYIIL1828-27-80 22:15:0075[facility] NfyqpxpZXJTMDLHVYRG1272-64-62 22:15:0016[facility] DJLWOTTPOOKC4958-42-69 22:15:0027[facility] JriuvayTVIUBUSVRHAY9975-61-98 22:15:00 2.8[facility] UqpoorlKYDIUCSSYUFC1088-44-83 22:15:006.3[facility]annHEMATOLOGY 2017-08-10 22:15:000.3[facility] CkzoxyyNHFDFHTXGW2167-80-15 22:15:000.1[facility] DsepjufVRVVDCBCGH0798-87-50 22:15:000.4[facility] HsfmmskVFRVPEMZUZ0132-61-79 22:15:000.9[facility] QdemiqnFUIPKIVLGD7876-65-37 22:15:0078.3[facility] UWRXLOVQBE5861-21-15 22:15:004.6[facility] BjxydahOEKNXEIPSM5879-96-53 22:15:001.0 [facility] ZmbizzdBIYUKORHKG8485-26-11 22:15:006.0[facility]annHEMATOLOGY 2017-08-10 22:15:004.3[facility] GsllkcbNSDJEQTURX2164-51-04 22:15:0011.8[facility] FybmlvbREKWBAAVCS2806-83-82 22:15:0025.2[facility] YwanmaeKXHOQKLQWV5349-36-39 22:15:002.85[facility] LlyyjvaWIDVOOJZDG5434-82-45 22:15:008.4[facility] GGVIJJYVXI1760-15-76 22:15:0033.4[facility] LksmatwKXEYZYNFRT8405-94-19 22:15:00 88.5[facility] EgssilrGSQPMZXUWK6341-12-73 22:15:00 Test Item Value Reference Range Interpretation Comments MCH (test code = MCH) 29.6 pg 27.0-31.0 [facility] GsbrtlfPEFVUECLCS1440-44-33 22:15:0014.8[facility]annHEMATOLOGY 2017-08-10 22:15:007.6[facility] QuwwdobXIDXPMPZGJ9869-05-99 22:15:67870Iirycajf QjsarziBTJUXTRPUI8561-72-52 22:15:008.6[facility] HermannCARDIAC EWLMPYD7972-80-40 22:15:000.03[facility] SxibdzpWKQFIODAWXBO6076-31-71 22:15:0018.3[facility] ZQXHWQNFEVSD0329-82-77 22:15:0013[facility] WhxenyaKABRXEBORTKT4701-70-37 22:15:00 0.8[facility] HnoxfzoHYXXTZZFQKQT9069-30-87 22:15:003.5[facility] GEIYZJMLXTVH2861-89-58 22:15:0012[facility] TgszoirZQVIZASGIFCI8061-37-04 22:15:00 4.98[facility] ToqqkotVDTMCNTMOZRZ8948-74-16 22:15:0064[facility] ZNSEGOITVDUR2262-04-61 22:15:80970Euyboidj GirthcjHVVFGXCYOGVF4777-77-49 22:15:96209Vcxsscbb FiootwqQJGMZIUEOUBY9218-40-88 22:15:004.3[facility] RUYYBSSJZQRJ1512-10-21 22:15:76182Cbkodtyr JmmxouvTTTYCHOUFKIM4402-87-23 22:15:008.0[facility] EtfvmjjGUTAQBCTNTKM4606-58-86 22:15:0017[facility] EHVHKSVXKMJO0486-66-28 22:15:000.3[facility] RizlaizACVYFVROKRFX7616-87-94 22:15:0075[facility] ZpoqhxhAOFFVDWYBBVT3686-13-58 22:15:0016[facility] GUIWJYMVZTZL9569-78-43 22:15:0027[facility] WyuvelfIVRMCBSDGDDR1987-23-20 22:15:00 2.8[facility] LlzetdzYGVRCBCBHTJN6585-99-51 22:15:006.3[facility]annHEMATOLOGY 2017-08-10 22:15:000.3[facility] PtngiluJJQFOKWHUB8070-76-86 22:15:000.1[facility] WjrnrjcUEXVAWFGWY6009-68-66 22:15:000.4[facility] JklkwfcPTOAYGMQEF7429-42-94 22:15:000.9[facility] TkjgzzsRTBZMGZSKC3913-92-79 22:15:0078.3[facility] WKRLCXKJYE3139-46-29 22:15:004.6[facility] MyrafvcYJLLGGTQUV9662-56-33 22:15:001.0 [facility] BexsxknCFZRQDJCJS0912-51-25 22:15:006.0[facility]annHEMATOLOGY 2017-08-10 22:15:004.3[facility] HardnlgKCGVLOAANN1594-98-09 22:15:0011.8[facility] IdaxzmsDWMTEYYGFL1407-57-89 22:15:0025.2[facility] AmfzrxzCLITFXIUNU7708-45-18 22:15:002.85[facility] IwlqgaoABYYJOOROI3778-99-69 22:15:008.4[facility] UKOONOCVOA8649-15-02 22:15:0033.4[facility] KwngjkwHNVDUVQAON8486-07-71 22:15:00 88.5[facility] GvmsnydXSBZKLVSSX5499-84-58 22:15:00 Test Item Value Reference Range Interpretation Comments MCH (test code = MCH) 29.6 pg 27.0-31.0 [facility] RbthlbpMKYFYPMOWL0269-42-22 22:15:0014.8[facility]annHEMATOLOGY 2017-08-10 22:15:007.6[facility] QrosuiqSSVRTQCXVS4523-66-23 22:15:73661Dmrzfmpn WrtydjlKNKBVJZWBG3787-77-49 22:15:008.6[facility] WrdnfwzWGEDDZORFXKO3162-59-63 22:15:003.5[facility] AqmwfqeBGGLAUDMIOIZ0377-17-49 22:15:0012[facility] ODUJDSDAECCC5108-21-67 22:15:004.98[facility] UatsqbeEYEJJUANNVRN5104-95-70 22:15:0064[facility] QpewbytBZDGLBGCUXMA3811-46-60 22:15:35402Cvcnwasa [facility] GNZQPHTTFJCO3470-21-51 22:15:06318Yvsadhds BojdtmfHVWNWMUGNEES4719-82-85 22:15:004.3[facility] VkjnqsqLKHOCOTXIQFF8408-78-50 22:15:04680Qxkxdtsr David CIMPXJQNHXVW3345-34-36 22:15:008.0[facility] ZegyknnPQXXCFQWQAZD3376-32-33 22:15:0017[facility] KajklxxUIAGVMDGRCLX1404-36-53 22:15:000.3[facility] BTTOXUCQZSEV7439-60-16 22:15:0075[facility] TnlhxlkAHCOHVCVEZOI1854-64-04 22:15:00 16[facility] VpjobfgVLEGCOOXPBSP1345-29-06 22:15:0027[facility] HermannELECTROLYTES 2017-08-10 22:15:002.8[facility] UmetshzPJYVPQGUYWZP0130-25-82 22:15:006.3[facility] HugbflqKEGZDUOLMR5591-94-60 22:15:000.3[facility] CcmowhgYIYYOPVDHI8645-30-14 22:15:000.1[facility] UirlljiTHTQVXGCXQ4499-12-55 22:15:000.4[facility] AURCZXSZTR3421-05-39 22:15:000.9[facility] LnsmixtHMLKCIABCM0312-05-92 22:15:00 78.3[facility] OlsvkfoCPBOAIMYSO5000-90-81 22:15:004.6[facility]annHEMATOLOGY 2017-08-10 22:15:001.0[facility] HwwxgvkQZDNUVSGFU9246-88-82 22:15:006.0[facility] KlvvocxNUGKVALMKO8053-10-34 22:15:004.3[facility] AwgbvygHXKKAVLLBI4951-00-03 22:15:0011.8[facility] RywdjanGERYLNBUZJ3350-37-88 22:15:0025.2[facility] CQWFODVMXS9735-46-18 22:15:002.85[facility] WhlumlhYMJJJOFPNN1795-16-98 22:15:00 8.4[facility] LxntldgOHBOWCBGWE5484-40-84 22:15:0033.4[facility]annHEMATOLOGY 2017-08-10 22:15:0088.5[facility] XtxagwuFNBNAIOCJA8162-92-83 22:15:00 Test Item Value Reference Range Interpretation Comments MCH (test code = MCH) 29.6 pg 27.0-31.0 [facility] LnukkalTJITFEWCNV0436-82-15 22:15:0014.8[facility]annHEMATOLOGY 2017-08-10 22:15:007.6[facility] ImjjdtcVYVFLSEBQV6508-23-62 22:15:13214Drbwbjyt ZbfjaoyQYSCFNWBOW5496-05-93 22:15:008.6[facility] HermannCARDIAC MMILJTD4358-30-39 22:15:000.03[facility] QrczxsrBMUPAYWELDQT9684-98-92 22:15:0018.3[facility] TUPHKHMSSKIK6196-63-06 22:15:0013[facility] WxwaxemQFDOGGGJLGQW8204-98-45 22:15:00 0.8[facility] QcwkrxfEBLGPRHWVCZM4495-47-53 22:15:003.5[facility] BSJYLOBZMJVO4671-33-62 22:15:0012[facility] DjfpedpEKZAJVASVTMB0082-43-50 22:15:00 4.98[facility] LqwqgytDWTOYDJXDPAM9154-75-32 22:15:0064[facility] KSJOGWQYVVNV8170-52-19 22:15:14484Treavoie UedlrorEVNLVSHGQBGK0846-91-66 22:15:99500Xoftudkx OevqyesVSZPCWSPXVAH8530-66-89 22:15:004.3[facility] TRNJMIEWVMAM7548-22-34 22:15:48024Tpvxypwl RowspbqZMSSMPHSOTII4249-10-84 22:15:008.0[facility] CsafhlkXSZLCAUWIGYZ9941-80-89 22:15:0017[facility] RKRCATEVQGCW3564-70-50 22:15:000.3[facility] YnuvrlxEEIVSZDDWHLJ0984-94-17 22:15:0075[facility] MhumiesQFCLRBSTTRLQ5787-26-16 22:15:0016[facility] JZTZYTWXPAOI4484-59-12 22:15:0027[facility] PfnlmryMRLMJOWISTAH3090-91-17 22:15:00 2.8[facility] HwubdyoFAXHOXFODASR2514-37-04 22:15:006.3[facility]annHEMATOLOGY 2017-08-10 22:15:000.3[facility] JpwvwwxFPYEAKKGWS8877-87-21 22:15:000.1[facility] IeceoguOVLNVIXBCK5421-33-71 22:15:000.4[facility] SrxmlyfJFJHMSJSBS0297-02-36 22:15:000.9[facility] IghrqxyXTXIOCBZRL3218-18-24 22:15:0078.3[facility] NZWTPJCBVR7812-77-07 22:15:004.6[facility] EtwttnoQRYWCHGJXO6013-29-64 22:15:001.0 [facility] SuqjivuUGBXHNFABH0675-34-75 22:15:006.0[facility]annHEMATOLOGY 2017-08-10 22:15:004.3[facility] KwqgocaLNPBUXDHTJ4284-79-47 22:15:0011.8[facility] CpxyddvSOBNORRJRM7775-94-95 22:15:0025.2[facility] ItqzxlwPIQCZRBINC6666-81-29 22:15:002.85[facility] DtuxkrzORMNMBUGLE3609-42-83 22:15:008.4[facility] WDMOTNQKAA9242-38-08 22:15:0033.4[facility] LdwzxbqLWICNXMSDC8416-71-27 22:15:00 88.5[facility] DdlqgmbXRUXMJSCKJ0434-33-99 22:15:00 Test Item Value Reference Range Interpretation Comments MCH (test code = MCH) 29.6 pg 27.0-31.0 [facility] ZywvmovSXFHQWZCRJ2812-75-39 22:15:0014.8[facility]annHEMATOLOGY 2017-08-10 22:15:007.6[facility] FmqdrvqMJJZCNMMCO5058-63-96 22:15:54197Gezwhnfl NhyzztrYOZOYYXHIF6699-78-63 22:15:008.6[facility]annCARDIAC YIXQXCP8898-50-39 22:15:000.03[facility] JsyyzdpEUMMRUVHIYRW3847-77-28 22:15:0018.3[facility] UIZLNXFCAEUO3091-64-19 22:15:0013[facility] TtxabvbMECTBBMQLLGL8608-03-12 22:15:00 0.8[facility] ImcxqxvCPOMTZWSGOHS8507-63-99 22:15:003.5[facility] IDMQSKUFMLMT4207-71-14 22:15:0012[facility] NksckfrKCTNRZCQHIRA1666-66-42 22:15:00 4.98[facility] MfuexdyOZNBEOZXUQSI6233-19-53 22:15:0064[facility] HNCWRIEQKSSK5830-84-51 22:15:22513Lxbiknvk MgzcstvVTSEHIERSDRO4718-23-33 22:15:07662Ywxzvoqt YvxqwbyCLPQECMHSGQX5246-60-29 22:15:004.3[facility] FEODWBAEKDPH9717-58-38 22:15:70238Bfynzjpt JnxrgmcUJFKGYINEIQK6667-98-27 22:15:008.0[facility] XnoqqlzNHNHBIMDKWRV3464-87-81 22:15:0017[facility] WTLNBIHDXLDN5072-30-93 22:15:000.3[facility] LzbszoeSAWTTLPWUNUU9013-77-80 22:15:0075[facility] UxfefynAXEVXHLPQXUM0940-39-11 22:15:0016[facility] ZCAPTIVOBRVX1089-04-63 22:15:0027[facility] SfmpjpnDRQWVMBQZQPP2136-67-05 22:15:00 2.8[facility] OwkordaZLKDLBBHAUXV1507-40-13 22:15:006.3[facility]annHEMATOLOGY 2017-08-10 22:15:000.3[facility] IxbubyzXGVNVMABTG3871-88-28 22:15:000.1[facility] DcwbxwxQIXVDPBSMT1753-82-41 22:15:000.4[facility] CeobogbRQVILHMZPE1036-38-89 22:15:000.9[facility] IlzkcctWSIXBQHVDV8160-23-40 22:15:0078.3[facility] USAVHDKLVQ4706-33-78 22:15:004.6[facility] JbiijxsRQUZSYSLSX6792-38-59 22:15:001.0 [facility] UgdaoecLXBQTKYOXF0765-26-22 22:15:006.0[facility]annHEMATOLOGY 2017-08-10 22:15:004.3[facility] CrlenfnADHQLXENJP8948-19-93 22:15:0011.8[facility] LptsigzHJDFDNYFVI6192-24-64 22:15:0025.2[facility] MroxeitOPZLXGOGFB3503-17-94 22:15:002.85[facility] VfisynhOGUJEZHFBU0217-54-25 22:15:008.4[facility] GDTFXCBIVJ0242-44-89 22:15:0033.4[facility] VroeootGBXOZRHGZS4278-92-37 22:15:00 88.5[facility] PlvhcbbMTFPCGJSAO9313-20-45 22:15:00 Test Item Value Reference Range Interpretation Comments MCH (test code = MCH) 29.6 pg 27.0-31.0 [facility] NytzcrmZNJYDLQFAJ4697-23-88 22:15:0014.8[facility]annHEMATOLOGY 2017-08-10 22:15:007.6[facility] YldkomlYTAMUTLIPP6353-03-33 22:15:80983Dqzxdaxq CshqdnjMXTCHLTLZX9030-06-89 22:15:008.6[facility] HermannCARDIAC EOUOAQJ7831-48-16 22:15:000.03[facility] KmhypobVYMEPPYRQHBJ9545-84-66 22:15:0018.3[facility] LPURVITDKMMT3986-17-88 22:15:0013[facility] HcyzznoIFTAANZDNYNF8685-68-11 22:15:00 0.8[facility] HermannANEMIA BSLKN7458-22-82 09:17:94941Mpgluzbo HermannANEMIA TKARY1957 09:17:95484Attrglsa HermannANEMIA QIBFI5618-03-49 09:17:0041 [facility]annANEMIA SKWJV0901-12-56 09:17:0020[facility] HermannANEMIA STUDY 2017-06-25 09:17:02820Uxqeoova HermannCARDIAC LYQCLZT0774-46-20 09:17:000.03 [facility]annCARDIAC XAGQQWK9414-55-47 09:17:77080Vsjptmse HermannCARDIAC ECETCBV7384-32-63 09:17:000.8[facility]annCARDIAC TWHKHEQ1667-08-05 09:17:00 6.2[facility] HermannCHEM HGWQV8094-62-13 09:17:004.1[facility] HermannELECTROLYTES 2017-06-25 09:17:0014.8[facility] TmzaytpSONDMDIIOHGP8998-07-92 09:17:008.0 [facility] HzxitawGKYZCNKZKGHO1864-15-80 09:17:003.8[facility] HermannELECTROLYTES 2017-06-25 09:17:56680Saornvkg SfegyzqYRYWYMHGFJVT5448-03-72 09:17:0021[facility] BphrnibYHHUYZYCFDHX9920-60-09 09:17:0012[facility] LenqiikRBSLQUKWMAAL6699-71-19 09:17:0096[facility] IahgehaYDFKQMJDZKVO5853-63-96 09:17:0049[facility] ZGLYUSEGOPKF2364-84-30 09:17:70570Jgfhacnq XuflczaQTNOBBHPZKGA3527-40-50 09:17:004.90[facility] VhinqshARZYPX4775-02-31 09:17:0020[facility] HermannLIPIDS 2017-06-25 09:17:0085[facility] QofvddgNNBBOO5312-87-13 09:17:0034[facility] MNSYMD7350-29-46 09:17:10070Gmybagur FxfvqzeAVHFCV1193-21-58 09:17:0098[facility] DgxizglZCXMEJ0961-57-14 09:17:004.09[facility] HermannSPECIAL WKPNWNJZE9263-29-68 09:17:005.4[facility] HermannANEMIA GSUGU8919-05-64 09:17:24143Tdrygrwg David ANEMIA UXNTN9055-32-62 09:17:79376Uxzcrtyd HermannANEMIA MUAIT5700-62-76 09:17:0041[facility] HermannANEMIA YWPPK8604-51-21 09:17:0020[facility] ANEMIA WJSFU3454-63-84 09:17:52500Tuikjcdc HermannCARDIAC BCMLSLF2252-36-27 09:17:000.03[facility] HermannCARDIAC RNESAJB4277-50-17 09:17:02993Qvtccimt HermannCARDIAC ENHVFHO9209-82-11 09:17:000.8[facility] HermannCARDIAC ENZYMES 2017-06-25 09:17:006.2[facility] HermannCHEM CNHIN7712-77-00 09:17:004.1[facility] FkriloqNNULYGJVUERD0261-99-53 09:17:0014.8[facility] JqcmeevKBQQLXGGPYJB7480-97-00 09:17:008.0[facility] SarjstpYKXIQQRANCUY0704-01-69 09:17:003.8[facility] PBBRPNVRUUMF1586-57-19 09:17:29576Sudwnjxn GdxgnljAYYLBCBDEOMC6650-44-86 09:17:0021[facility] DgbtkorPFZZJXJDHFKJ3863-72-59 09:17:0012[facility] TVZYBJLSQBXL1918-41-20 09:17:0096[facility] NiivfdyDNLQZOIRHZUI1333-92-79 09:17:00 49[facility] OmhggrtQKNTWHQYOAGJ2884-53-66 09:17:53668Uharrmqk HermannELECTROLYTES 2017-06-25 09:17:004.90[facility] JwdlcovHYFTHL4232-94-74 09:17:0020[facility] YejewodUFJFAX4873-42-91 09:17:0085[facility] MbktfvpILMVFE5261-50-28 09:17:0034 [facility] WazuapiQMLHFB1239-25-29 09:17:69476Sjeutgdy MszredjUKWXHW9697-88-51 09:17:0098[facility] MmtqstpKITZVV6479-57-55 09:17:004.09[facility] HermannSPECIAL HLCDCMENA2057-12-56 09:17:005.4[facility] HermannANEMIA HDBBL7946-22-78 09:17:00 137[facility] HermannANEMIA ARLIY0140-32-22 09:17:82211Vokchumj HermannANEMIA UOSQY6009-27-00 09:17:0041[facility] HermannANEMIA XCOSX2046-65-57 09:17:0020 [facility] HermannANEMIA ZZJXI5903-22-40 09:17:77982Xasvsmya HermannCARDIAC LBFIJTZ7493-09-17 09:17:000.03[facility] HermannCARDIAC PKSVZDX7813-86-79 09:17:00 794[facility] HermannCARDIAC MNJJKYG9476-92-48 09:17:000.8[facility] HermannCARDIAC XWVFIML3966-84-06 09:17:006.2[facility] HermannCHEM WRQDA3488-53-92 09:17:004.1 [facility] WynpymkXPUIPYOPHAPH4637-31-31 09:17:0014.8[facility] HermannELECTROLYTES 2017-06-25 09:17:008.0[facility] DkhxjhqNQFUYPKOKRLJ8205-98-62 09:17:003.8[facility] AtpurriINSLKSFLSRXS9656-97-68 09:17:67770Lndlrwku UtgvrtcSTIIMIGZZRCY3525-14-64 09:17:0021[facility] VwmrxetRHNQKDPUEWEO6638-86-75 09:17:0012[facility] QYTSAROJBOEC3053-07-76 09:17:0096[facility] UylpkzoOXNQBSJWFMUA0575-36-69 09:17:00 49[facility] UstfjfmPBKPPFRTBQDC2258-86-17 09:17:31753Ikxqhixw HermannELECTROLYTES 2017-06-25 09:17:004.90[facility] YzqkxulQCGESB3505-63-17 09:17:0020[facility] QalgmalBUSYTI0162-41-19 09:17:0085[facility] WlbzgerPWPQLC4523-15-56 09:17:0034 [facility] MueaiioQONWQY5032-38-04 09:17:27060Aehctcuu JedcxdgHUCVJR3388-90-02 09:17:0098[facility] QwrrncrVAIWYG1078-21-14 09:17:004.09[facility] HermannSPECIAL PDUIZGHSV9935-57-05 09:17:005.4[facility] HermannANEMIA EWTPF3420-65-76 09:17:00 137[facility] HermannANEMIA LRXAK9373-16-69 09:17:20904Iqyqszol HermannANEMIA ZYJMK9417-68-82 09:17:0041[facility] HermannANEMIA CGQDX7021-86-28 09:17:0020 [facility] HermannANEMIA EZGDB5291-35-44 09:17:11389Copnbpmk HermannCARDIAC YOLWZAU6322-99-68 09:17:000.03[facility] HermannCARDIAC TSVQFSQ5962-88-90 09:17:00 794[facility] HermannCARDIAC HKUFSAU5247-78-63 09:17:000.8[facility] HermannCARDIAC ORQXXUG6969-88-06 09:17:006.2[facility] HermannCHEM LXZEO6984-40-75 09:17:004.1 [facility] PsxykrkHXOERSJRWTNO5316-15-26 09:17:0014.8[facility] HermannELECTROLYTES 2017-06-25 09:17:008.0[facility] HagcdjgZQGAWMPQXPEZ5536-71-56 09:17:003.8[facility] QjwcxbzLTTXWWRELLCO8669-22-91 09:17:93759Epwrquwp NjfwngqLPQLMSLOGLTJ5625-26-08 09:17:0021[facility] UpebeuwOSNMVCHFJXLF7690-82-28 09:17:0012[facility] ZLAHAQINADEN3751-09-34 09:17:0096[facility] RayebblADHTECCZVYCP1809-67-69 09:17:00 49[facility] DyngguaINJUGXPZLHLB2548-05-20 09:17:95648Esqnpuwe HermannELECTROLYTES 2017-06-25 09:17:004.90[facility] VepsrplYJVARJ8100-89-49 09:17:0020[facility] YzbeuehRVSZMR8811-97-81 09:17:0085[facility] RzxafjaWLRWMA4898-24-45 09:17:0034 [facility] KqcghhsYDBMYZ3826-75-94 09:17:28229Dwqwlrnb LdxpbwbUCXAIM5823-33-15 09:17:0098[facility] WgvwuwhYEHTJO7902-13-40 09:17:004.09[facility] HermannSPECIAL IUPSXMNGZ3036-45-72 09:17:005.4[facility] HermannANEMIA TQPBG3844-10-35 09:17:00 137[facility] HermannANEMIA TQTKI8132-68-28 09:17:44373Ifsrghyt HermannANEMIA CKPRX7355-17-61 09:17:0041[facility] HermannANEMIA NVNGI1282-14-40 09:17:0020 [facility] HermannANEMIA HTWMK7368-71-18 09:17:78477Iuoewgjq HermannCARDIAC NNUGKFT7385-91-75 09:17:000.03[facility] HermannCARDIAC NQJCLOQ3559-42-39 09:17:00 794[facility] HermannCARDIAC XCVBRAE3978-54-25 09:17:000.8[facility] HermannCARDIAC YGFLVYB8625-94-49 09:17:006.2[facility] HermannCHEM QWYRK3633-12-11 09:17:004.1 [facility] XwoehwkDGZMEMDZHHQV0623-73-62 09:17:0014.8[facility] HermannELECTROLYTES 2017-06-25 09:17:008.0[facility] UbkrehpBAZIAAYXMUTT2395-46-17 09:17:003.8[facility] TvmwrjcKCWZTKSDTNAP5891-06-04 09:17:00739Rcipnyhq SiwecxySRHFMWOOKSWG1673-10-70 09:17:0021[facility] LfbhodoYWWWLBXIJFGE1228-32-03 09:17:0012[facility] XDLARWTIXNBY4475-60-09 09:17:0096[facility] XbvfeyqAXEXGPXGWFIJ9682-05-35 09:17:00 49[facility] NypybebNIRHXYXRMHBT8314-28-04 09:17:67616Xondqnmc HermannELECTROLYTES 2017-06-25 09:17:004.90[facility] FakcgyrLWAJIC1314-80-22 09:17:0020[facility] StqsdjaDHZAES5569-98-08 09:17:0085[facility] RyuxzlwUPANAT4981-45-46 09:17:0034 [facility] IkdrbmpSHPKLG5799-50-37 09:17:95422Tqrngyxe CdmqqbyNPXGRR7577-89-17 09:17:0098[facility] CbeqfnoSBQGBB9188-21-38 09:17:004.09[facility] HermannSPECIAL HXMMSEFTS3729-43-10 09:17:005.4[facility] HermannANEMIA IMGGL7940-20-44 09:17:00 137[facility] HermannANEMIA ZVMZE7811-22-84 09:17:30204Zqhdtrrz HermannANEMIA BUYYZ7056-74-51 09:17:0041[facility] HermannANEMIA URHDV6976-85-58 09:17:0020 [facility] HermannANEMIA WBOOB4490-62-02 09:17:51617Uidcxbsw HermannCARDIAC CNXFNAZ1982-58-52 09:17:000.03[facility] HermannCARDIAC DLQQFZQ4140-69-89 09:17:00 794[facility] HermannCARDIAC PXTRQNG6128-38-47 09:17:000.8[facility] HermannCARDIAC YGATXXC7332-55-84 09:17:006.2[facility] HermannCHEM NZBAL6343-50-58 09:17:004.1 [facility] TkyvxijQODNWMMUYTZI5681-36-28 09:17:0014.8[facility] HermannELECTROLYTES 2017-06-25 09:17:008.0[facility] JkgtrtyJRPCOUPEJOEW7034-20-08 09:17:003.8[facility] QvjsbszZNFJNSNNHGVX2786-16-24 09:17:24757Ckwxqtqs GuwgmhhHLZGDKFRFMEK2877-40-52 09:17:0021[facility] JmcbzdbJSBIEQOPETKW8486-20-96 09:17:0012[facility] LENGVDSZPXJD9864-48-93 09:17:0096[facility] GvbkoakTKFVFTEKUNDP6974-99-61 09:17:00 49[facility] AnebunoQARXPZJCDPXM0025-89-02 09:17:95660Fybvnflm HermannELECTROLYTES 2017-06-25 09:17:004.90[facility] PvogczqPGDOBN1201-49-89 09:17:0020[facility] QwzlzhzQKIPIP1490-23-98 09:17:0085[facility] VkkmhpcBMLTLG9783-43-12 09:17:0034 [facility] FlgivkgLCTXLY0059-63-06 09:17:32114Bcsiuvsc DdekecwXPDMSF9762-38-86 09:17:0098[facility] MwcapdwPYFMEM5939-06-03 09:17:004.09[facility] HermannSPECIAL YAMXMUXWJ9529-06-95 09:17:005.4[facility] HermannANEMIA ROZLB9104-02-59 09:17:00 137[facility] HermannANEMIA QSTKU3750-12-80 09:17:04006Wqksrsgf HermannANEMIA MYPDJ8463-71-89 09:17:0041[facility] HermannANEMIA FQNRD3062-69-96 09:17:0020 [facility] HermannANEMIA WSRQX1421-59-96 09:17:30627Njbscevj HermannCARDIAC MYTAHYL8528-23-97 09:17:000.03[facility] HermannCARDIAC JNSVBXI0260-22-62 09:17:00 794[facility] HermannCARDIAC RWZWITS7674-00-61 09:17:000.8[facility] HermannCARDIAC PQPSIFO2827-53-37 09:17:006.2[facility] HermannCHEM EAZZY2525-25-55 09:17:004.1 [facility] VhbfbnpKPPQEDBRAWDG0532-44-08 09:17:0014.8[facility] HermannELECTROLYTES 2017-06-25 09:17:008.0[facility] RmhbziaEKICHHRCUEHU4707-86-29 09:17:003.8[facility] MkkolikQASCGNDBYBBT4020-22-29 09:17:94128Jjohvypw AnzvkjfBYQZRLYEHYRH5601-15-96 09:17:0021[facility] FgrbonkLNCZKRNQTOPL1433-44-55 09:17:0012[facility] NBGJKMTSREWM5268-60-49 09:17:0096[facility] YhxlftdVIMYLLEOYQVA2061-83-86 09:17:00 49[facility] LqqsbfrODDIRDAMLPAC1634-92-85 09:17:58966Uutwqdju HermannELECTROLYTES 2017-06-25 09:17:004.90[facility] WhsnnkdXVGPKE2810-09-74 09:17:0020[facility] YhorpoqNHAYFT8739-56-75 09:17:0085[facility] CujwatsMZRQCZ1725-47-86 09:17:0034 [facility] UlnflpgCAABMF8779-43-45 09:17:58957Xnvxgnvo UgffgebQHOEEO3564-80-03 09:17:0098[facility] XbiovgiTZNOIG2958-41-67 09:17:004.09[facility] HermannSPECIAL WVEVPXGDB0230-68-93 09:17:005.4[facility] HermannANEMIA GVWFN6396-30-00 09:17:00 137[facility] HermannANEMIA LNMUD5367-84-73 09:17:36912Ycnerxpj HermannANEMIA PJFRZ7647-40-70 09:17:0041[facility] HermannANEMIA XEVOX9501-74-40 09:17:0020 [facility] HermannANEMIA MIDPP4734-84-27 09:17:49661Ybskflpv HermannCARDIAC MOMGEIR2403-81-06 09:17:000.03[facility] HermannCARDIAC IIWCHNH6442-45-74 09:17:00 794[facility] HermannCARDIAC AICARGN2207-67-90 09:17:000.8[facility] HermannCARDIAC AUFRIRU1937-75-41 09:17:006.2[facility] HermannCHEM ROMCG2577-07-62 09:17:004.1 [facility] VnnwkbcMYSINIIUQIBE4205-85-44 09:17:0014.8[facility] HermannELECTROLYTES 2017-06-25 09:17:008.0[facility] IykbuleJWHUBWMKXJUS2242-46-88 09:17:003.8[facility] ClkuvacYYDNHLLVIQGK8292-33-27 09:17:60106Uvtorgmz LhpfbhmMTBUJDCUHLHE4569-11-06 09:17:0021[facility] UginxnlTQMMKWZPHUTT2645-85-59 09:17:0012[facility] IHDFTHMJFZPN0130-35-58 09:17:0096[facility] KghlpukFJQLSKHOTFPE0169-46-00 09:17:00 49[facility] YxsaqvdBLYGMJQAZFHB8226-42-60 09:17:73885Jzdqssbw HermannELECTROLYTES 2017-06-25 09:17:004.90[facility] PxokeajTBXOHX7298-63-49 09:17:0020[facility] OaxtanrKDTOHB5998-58-55 09:17:0085[facility] FgrzjnpDXZAFU4123-23-84 09:17:0034 [facility] IlydtrsIBIYJN3500-41-20 09:17:05230Vhetohfx YbbtrgvPRHKAZ9085-67-64 09:17:0098[facility] CzulcxrWFYSMW3516-06-81 09:17:004.09[facility] HermannSPECIAL LPQBZWSBB4589-51-48 09:17:005.4[facility] HermannANEMIA QRIGG4486-87-19 09:17:00 137[facility] HermannANEMIA MVWFI2471-56-52 09:17:05459Vcjkmptp HermannANEMIA CBWHB4253-97-99 09:17:0041[facility] HermannANEMIA HJEJS0069-28-70 09:17:0020 [facility] HermannANEMIA PSPJV8065-12-94 09:17:04248Rpgmwnes HermannCARDIAC SIHEEIJ3914-83-18 09:17:000.03[facility] HermannCARDIAC MYRUJCM7943-63-83 09:17:00 794[facility] HermannCARDIAC GQZJWSY8640-93-64 09:17:000.8[facility] HermannCARDIAC YIMRSWO4178-13-59 09:17:006.2[facility] HermannCHEM UBYHB8900-98-96 09:17:004.1 [facility] MgwliocNOLUKXPMCXAQ6481-79-25 09:17:0014.8[facility] HermannELECTROLYTES 2017-06-25 09:17:008.0[facility] VawvaevMRPYRDQNPEBW2333-71-08 09:17:003.8[facility] JjijgzmLGRGWWODBTOL0225-80-29 09:17:17516Xtanhcly UqnkjgkIVJPSRMJUGWC0107 09:17:0021[facility] QhaonulUGERHGWXRYHZ8545-86-88 09:17:0012[facility] NAUEBXHWETNZ5091-75-73 09:17:0096[facility] GktprcbANBIQJAVWEVR1316-56-03 09:17:00 49[facility] PosmnjrUEONONUQSRAO6355-79-57 09:17:64236Vnhkparr HermannELECTROLYTES 2017-06-25 09:17:004.90[facility] RhbkkdpAPOYRC9559-96-53 09:17:0020[facility] QkgtyosHLJUDJ3473-55-20 09:17:0085[facility] IdfpqkrGPGNFD0218-70-95 09:17:0034 [facility] ChmqbgsKZQYWA9696-81-07 09:17:09971Sulxrdqo AsrwpqmEXWHKB9757-78-28 09:17:0098[facility] NvcqcscREMEEF0306-69-49 09:17:004.09[facility] HermannSPECIAL GQZGZRPMJ1006-49-95 09:17:005.4[facility]annURINE AND XPINC3740-02-81 13:57:00Small *ABN*(06/24/17 8:57 AM)[facility] AND SANJJ3941-39-34 13:57:00Negative *NA*(06/24/17 8:57 AM)[facility] AND TTUHA8615-24-69 13:57:00Negative (06/24/17 8:57 AM)[facility] AND LYQSD2112-15-73 13:57:000.2[facility] AND DBPRD0873-17-13 13:57:00Negative (06/24/17 8:57 AM)[facility] XGCZS5838-64-68 13:57:00Negative *NA*(06/24/17 8:57 AM)[facility] EVUJP4295-78-51 13:57:00Clear (06/24/17 8:57 AM)[facility] AND EECXJ8640-87-85 13:57:00Yellow *NA*(06/24/17 8:57 AM)[facility] PRUCH1035-93-39 13:57:00 Test Item Value Reference Range Interpretation Comments UA Spec Grav (test code = UA Spec 1.015 1 Grav) [facility] VYFHK5661-41-76 13:57:00 Test Item Value Reference Range Interpretation Comments UA pH (test code = UA pH) 7.0 1 5.0-8.0 [facility] HHEHX2046-52-95 13:57:00Small *ABN*(06/24/17 8:57 AM) [facility] SBIJC9855-32-45 13:57:00Negative *NA*(06/24/17 8:57 AM) [facility] TUXYT4618-84-29 13:57:00Negative (06/24/17 8:57 AM) [facility] VPIQX2276-06-49 13:57:000.2[facility] AND BCQSX0411-67-79 13:57:00Negative (06/24/17 8:57 AM)[facility] YQEXO1190-75-43 13:57:00Negative *NA*(06/24/17 8:57 AM)[facility] HNJKX8277-76-08 13:57:00Clear (06/24/17 8:57 AM)[facility] STOOL 2017-06-24 13:57:00Yellow *NA*(06/24/17 8:57 AM)[facility] AND STOOL 2017-06-24 13:57:00 Test Item Value Reference Range Interpretation Comments UA Spec Grav (test code = UA Spec 1.015 1 Grav) [facility] RLGNS1908-61-56 13:57:00 Test Item Value Reference Range Interpretation Comments UA pH (test code = UA pH) 7.0 1 5.0-8.0 [facility] UQOPC2908-18-45 13:57:00Small *ABN*(06/24/17 8:57 AM) [facility] SRYXW7129-87-88 13:57:00Negative *NA*(06/24/17 8:57 AM) [facility] FICRM3741-52-54 13:57:00Negative (06/24/17 8:57 AM) [facility] IEKVK8474-43-74 13:57:000.2[facility] AND ZMEQU1177-65-40 13:57:00Negative (06/24/17 8:57 AM)[facility] TGVIL3510-04-04 13:57:00Negative *NA*(06/24/17 8:57 AM)[facility] ORUAM2986-20-87 13:57:00Clear (06/24/17 8:57 AM)[facility] STOOL 2017-06-24 13:57:00Yellow *NA*(06/24/17 8:57 AM)[facility] AND STOOL 2017-06-24 13:57:00 Test Item Value Reference Range Interpretation Comments UA Spec Grav (test code = UA Spec 1.015 1 Grav) [facility] DPYRA5529-56-31 13:57:00 Test Item Value Reference Range Interpretation Comments UA pH (test code = UA pH) 7.0 1 5.0-8.0 [facility] RGDIX7850-53-63 13:57:00Small *ABN*(06/24/17 8:57 AM) [facility] BJATK6006-78-68 13:57:00Negative *NA*(06/24/17 8:57 AM) [facility] WTXJU8895-78-28 13:57:00Negative (06/24/17 8:57 AM) [facility] WCWGB9783-38-49 13:57:000.2[facility] EOGUM3908-04-09 13:57:00Negative (06/24/17 8:57 AM)[facility] YRBRC3080-99-28 13:57:00Negative *NA*(06/24/17 8:57 AM)[facility] EVZCJ9565-40-95 13:57:00Clear (06/24/17 8:57 AM)[facility] STOOL 2017-06-24 13:57:00Yellow *NA*(06/24/17 8:57 AM)[facility] STOOL 2017-06-24 13:57:00 Test Item Value Reference Range Interpretation Comments UA Spec Grav (test code = UA Spec 1.015 1 Grav) [facility] DOQRE2875-05-77 13:57:00 Test Item Value Reference Range Interpretation Comments UA pH (test code = UA pH) 7.0 1 5.0-8.0 [facility] GOGHX7054-47-81 13:57:00Small *ABN*(06/24/17 8:57 AM) [facility] LJATY5519-65-06 13:57:00Negative *NA*(06/24/17 8:57 AM) [facility] MYPVJ0175-45-08 13:57:00Negative (06/24/17 8:57 AM) [facility] DNHJJ1507-14-10 13:57:000.2[facility] JYLTT1783-91-73 13:57:00Negative (06/24/17 8:57 AM)[facility] OLRRS4416-22-14 13:57:00Negative *NA*(06/24/17 8:57 AM)[facility] XFYSE4892-12-69 13:57:00Clear (06/24/17 8:57 AM)[facility] STOOL 2017-06-24 13:57:00Yellow *NA*(06/24/17 8:57 AM)[facility] STOOL 2017-06-24 13:57:00 Test Item Value Reference Range Interpretation Comments UA Spec Grav (test code = UA Spec 1.015 1 Grav) [facility] FATQH9028-92-82 13:57:00 Test Item Value Reference Range Interpretation Comments UA pH (test code = UA pH) 7.0 1 5.0-8.0 [facility] SMZSK1459-32-52 13:57:00Small *ABN*(06/24/17 8:57 AM) [facility] IINKA4922-65-29 13:57:00Negative *NA*(06/24/17 8:57 AM) [facility] IDJVG8122-90-21 13:57:00Negative (06/24/17 8:57 AM) [facility] KYXWY6994-14-58 13:57:000.2[facility] BRXTR8236-06-73 13:57:00Negative (06/24/17 8:57 AM)[facility] PPSQF2889-31-98 13:57:00Negative *NA*(06/24/17 8:57 AM)[facility] CDQCK2342-25-34 13:57:00Clear (06/24/17 8:57 AM)[facility] STOOL 2017-06-24 13:57:00Yellow *NA*(06/24/17 8:57 AM)[facility] STOOL 2017-06-24 13:57:00 Test Item Value Reference Range Interpretation Comments UA Spec Grav (test code = UA Spec 1.015 1 Grav) [facility] YOSBV3320-89-89 13:57:00 Test Item Value Reference Range Interpretation Comments UA pH (test code = UA pH) 7.0 1 5.0-8.0 [facility] NXSLT9380-60-48 13:57:00Small *ABN*(06/24/17 8:57 AM) [facility] XLLUS1560-13-47 13:57:00Negative *NA*(06/24/17 8:57 AM) [facility] TSLQZ4483-83-56 13:57:00Negative (06/24/17 8:57 AM) [facility] LRUHT0093-99-50 13:57:000.2[facility] YNGPL6661-39-47 13:57:00Negative (06/24/17 8:57 AM)[facility] VIUYR0006-35-93 13:57:00Negative *NA*(06/24/17 8:57 AM)[facility] IBHMJ0493-21-84 13:57:00Clear (06/24/17 8:57 AM)[facility] STOOL 2017-06-24 13:57:00Yellow *NA*(06/24/17 8:57 AM)[facility] STOOL 2017-06-24 13:57:00 Test Item Value Reference Range Interpretation Comments UA Spec Grav (test code = UA Spec 1.015 1 Grav) [facility] HUENE8331-99-54 13:57:00 Test Item Value Reference Range Interpretation Comments UA pH (test code = UA pH) 7.0 1 5.0-8.0 [facility] AKVML9539-60-87 13:57:00Small *ABN*(06/24/17 8:57 AM) [facility] KGILQ6930-31-48 13:57:00Negative *NA*(06/24/17 8:57 AM) [facility] XQDIU6945-49-45 13:57:00Negative (06/24/17 8:57 AM) [facility] WTHLA4279-34-53 13:57:000.2[facility] NZKXX0838-43-47 13:57:00Negative (06/24/17 8:57 AM)[facility] ZVQXM9495-92-25 13:57:00Negative *NA*(06/24/17 8:57 AM)[facility] NHIFB8165-02-30 13:57:00Clear (06/24/17 8:57 AM)[facility] STOOL 2017-06-24 13:57:00Yellow *NA*(06/24/17 8:57 AM)[facility] STOOL 2017-06-24 13:57:00 Test Item Value Reference Range Interpretation Comments UA Spec Grav (test code = UA Spec 1.015 1 Grav) [facility] ROUXO2223-06-02 13:57:00 Test Item Value Reference Range Interpretation Comments UA pH (test code = UA pH) 7.0 1 5.0-8.0 [facility] NDCWM7137-67-22 13:57:00Small *ABN*(06/24/17 8:57 AM) [facility] LGWXO1127-91-10 13:57:00Negative *NA*(06/24/17 8:57 AM) [facility] VBCRZ8915-44-20 13:57:00Negative (06/24/17 8:57 AM) [facility] WBGXN0442-20-02 13:57:000.2[facility] QBOOJ2054-64-02 13:57:00Negative (06/24/17 8:57 AM)[facility] PIIHO5375-19-35 13:57:00Negative *NA*(06/24/17 8:57 AM)[facility] PFONI1005-14-02 13:57:00Clear (06/24/17 8:57 AM)[facility] STOOL 2017-06-24 13:57:00Yellow *NA*(06/24/17 8:57 AM)[facility] STOOL 2017-06-24 13:57:00 Test Item Value Reference Range Interpretation Comments UA Spec Grav (test code = UA Spec 1.015 1 Grav) [facility] NGZYD2744-25-11 13:57:00 Test Item Value Reference Range Interpretation Comments UA pH (test code = UA pH) 7.0 1 5.0-8.0 [facility] HermannCARDIAC XGDHMMR1001-76-48 12:31:000.03[facility] HermannCARDIAC JWQQPDD1205-79-28 12:31:131687Hmyscjwg HermannCARDIAC XVYSODM6871-20-81 12:31:00 9.0[facility] HermannCARDIAC EXMBOQW1747-82-28 12:31:0642334Vblfaceh Mcfarlan CARDIAC BTTKGLM0941-35-32 12:31:000.9[facility] HermannCHEM VRLPU1838-21-64 12:31:54107Cokgvkpd HermannCHEM ILTYN9183-30-81 12:31:0012[facility] HermannCHEM FBERS0285-58-14 12:31:000.8[facility] HermannCHEM ACYEH3210-12-14 12:31:003.6 [facility] HermannCHEM YMMRD6209-30-60 12:31:0010[facility] HermannCHEM PANEL 2017-06-24 12:31:0013.1[facility] HermannCHEM VESVD5828-76-90 12:31:0021[facility] HermannCHEM BPOIW4975-34-84 12:31:0024[facility] HermannCHEM OOHRB2630-43-11 12:31:003.0[facility] HermannCHEM XYKAT4701-95-60 12:31:000.3[facility] HermannCHEM JSPYA8683-19-31 12:31:0081[facility] HermannCHEM JAWJM1885-26-35 12:31:006.6 [facility] HermannCHEM TJGYW5812-61-42 12:31:008.2[facility] HermannCHEM PANEL 2017-06-24 12:31:0024[facility] HermannCHEM OOKKD9375-71-53 12:31:0047[facility] HermannCHEM APCYM0999-26-05 12:31:47661Xoorccfw HermannCHEM YDQLV5756-48-94 12:31:004.1[facility] HermannCHEM PWKET1497-17-66 12:31:59616Ssemhgyl HermannCHEM EZBQM4924-87-22 12:31:004.86[facility] HermannCHEM OELMD1265-98-66 12:31:98893 [facility] VvtmsvoMSVNSZGQWF7256-25-18 12:31:000.91[facility] HermannHEMATOLOGY 2017-06-24 12:31:00 Test Item Value Reference Range Interpretation Comments PROTIME (test code = PROTIME) 12.2 s 12.0-14.7 [facility] MddirreVOXKEIAJSB5157-93-38 12:31:00 Test Item Value Reference Range Interpretation Comments aPTT (test code = aPTT) 37.3 s 22.9-35.8 [facility] FlfwfmbENBQQEAUUB0388-13-62 12:31:53111Jpykypdl HermannHEMATOLOGY 2017-06-24 12:31:009.5[facility] TqltspiLPTZECPFCC1883-12-85 12:31:0014.4[facility] AeqdstyWTVZJEOJCJ7884-16-78 12:31:0029.7[facility] AthbqrnJGOJXGRQOI6675-13-40 12:31:0089.8[facility] YgpxeggJPPNQSTIGW7235-84-44 12:31:009.8[facility] OTPRSDBHHC9363-18-76 12:31:00 Test Item Value Reference Range Interpretation Comments MCH (test code = MCH) 29.7 pg 27.0-31.0 [facility] CkrblesEKSAVHNLQE4353-71-86 12:31:0033.1[facility] HermannHEMATOLOGY 2017-06-24 12:31:009.6[facility] AhxqzmjKQAHXSNYBB9023-45-22 12:31:003.31[facility] BanpaeoCTRSHTTOHP0143-98-41 12:31:000.2[facility] KopgxvkBVMSDPOWXJ6938-94-14 12:31:000.6[facility] RimmozxFNJOIAGEZC9302-30-39 12:31:002.2[facility] ZPVZNUHBOX5561-43-12 12:31:005.8[facility] GhqcqicBJWSBJBVRV3998-39-59 12:31:009.3 [facility] SydmwrcSGTWOWXDQG5665-03-49 12:31:007.3[facility] HermannHEMATOLOGY 2017-06-24 12:31:0075.4[facility] IdxfmzxHDUIVWALCW9854-12-36 12:31:000.7[facility] PfasnvyJHXYGIGBTQ6636-51-60 12:31:000.9[facility] VliatbkNIBVYAKKPQ5848-14-43 12:31:007.2[facility] HermannCARDIAC NSPVQVX8416-38-99 12:31:000.03[facility] HermannCARDIAC MDZMIQY8338-11-62 12:31:766734Ykupkjho HermannCARDIAC ENZYMES 2017-06-24 12:31:009.0[facility] HermannCARDIAC QFOXPPG8515-86-14 12:31:2969779 [facility] HermannCARDIAC LEKBTDZ7290-52-42 12:31:000.9[facility] HermannCHEM PANEL 2017-06-24 12:31:57692Rcenbpmw HermannCHEM EPDGR4929-71-32 12:31:0012[facility] HermannCHEM WTYRJ6230-28-04 12:31:000.8[facility] HermannCHEM FKCMX9789-38-75 12:31:003.6[facility] HermannCHEM KHATC0825-27-29 12:31:0010[facility] HermannCHEM AZGXK2140-07-26 12:31:0013.1[facility] HermannCHEM NXUVK6049-27-01 12:31:0021 [facility] HermannCHEM HJSPM7917-64-06 12:31:0024[facility] HermannCHEM PANEL 2017-06-24 12:31:003.0[facility] HermannCHEM CZYDA2129-04-44 12:31:000.3[facility] HermannCHEM TICKK2742-85-38 12:31:0081[facility] HermannCHEM HQSYS1222-25-13 12:31:006.6[facility] HermannCHEM ASZIX8969-80-86 12:31:008.2[facility] HermannCHEM JMNRK9954-00-36 12:31:0024[facility] HermannCHEM CABVZ4007-54-48 12:31:0047 [facility] HermannCHEM XEQVX1727-98-04 12:31:27422Peeblbcf HermannCHEM PANEL 2017-06-24 12:31:004.1[facility] HermannCHEM MRFRP5794-35-46 12:31:62565Zqbdwilj HermannCHEM DZYXT6793-40-54 12:31:004.86[facility] HermannCHEM RWMVW3376-78-15 12:31:16908Ijgvvcvj PivmfhiPDSYRIQYKF5297-44-91 12:31:000.91[facility] EXAZLFCCXE8063-27-65 12:31:00 Test Item Value Reference Range Interpretation Comments PROTIME (test code = PROTIME) 12.2 s 12.0-14.7 [facility] TkpxgdqPICOAUJYAB9439-02-81 12:31:00 Test Item Value Reference Range Interpretation Comments aPTT (test code = aPTT) 37.3 s 22.9-35.8 [facility] FfskjeoPNMZDHRWGS0369-24-87 12:31:56801Yvgvehli HermannHEMATOLOGY 2017-06-24 12:31:009.5[facility] FtsundrFGLBUNGWRA2652-38-67 12:31:0014.4[facility] ImesnuzZJGRCYQUWK1395-90-90 12:31:0029.7[facility] PamwrvuMAVLCMNCFX4130-21-24 12:31:0089.8[facility] ZhrvuwjWUZSCUEOEU5217-54-87 12:31:009.8[facility] XBUGVLCNPF1953-66-83 12:31:00 Test Item Value Reference Range Interpretation Comments MCH (test code = MCH) 29.7 pg 27.0-31.0 [facility] WmqhbwcOGHHIECFMK8791-11-47 12:31:0033.1[facility] HermannHEMATOLOGY 2017-06-24 12:31:009.6[facility] YlalmjbNDHEDFTDPY6834-26-66 12:31:003.31[facility] CcthmstBQPYUIWQNH0179-47-13 12:31:000.2[facility] CodhjvtYTQKOADACA6866-28-91 12:31:000.6[facility] KrnjaxgUVMZRZUIFE8221-13-26 12:31:002.2[facility] ZALUHUIZCI4248-96-21 12:31:005.8[facility] CafbhwrNKEHJPGSVR1889-31-75 12:31:009.3 [facility] BsmydxePWBDAMUCDZ1022-97-85 12:31:007.3[facility] HermannHEMATOLOGY 2017-06-24 12:31:0075.4[facility] IgkhascCQFHWUCWDX5862-87-40 12:31:000.7[facility] HhtmzhvTAGWAZDOTH1605-85-53 12:31:000.9[facility] HyhgnupTTYPEZEHLL2917-83-08 12:31:007.2[facility] HermannCARDIAC LUNUYKM3306-32-20 12:31:000.03[facility] HermannCARDIAC NKELWGU2629-55-34 12:31:569370Jqqaiuad HermannCARDIAC ENZYMES 2017-06-24 12:31:009.0[facility] HermannCARDIAC RAXILIH1558-61-83 12:31:1587009 [facility]annCARDIAC TGZOZMQ7884-12-45 12:31:000.9[facility] HermannCHEM PANEL 2017-06-24 12:31:84759Vxiilfnw HermannCHEM SKKDJ5449-49-63 12:31:0012[facility] HermannCHEM CZLLN6407-12-49 12:31:000.8[facility] HermannCHEM MTPNC6812-90-79 12:31:003.6[facility] HermannCHEM JAVGQ0555-73-78 12:31:0010[facility] HermannCHEM WWLPC0452-90-95 12:31:0013.1[facility] HermannCHEM EEFPW5704-82-11 12:31:0021 [facility] HermannCHEM HBZOK3040-64-17 12:31:0024[facility] HermannCHEM PANEL 2017-06-24 12:31:003.0[facility] HermannCHEM IXFXW5262-48-58 12:31:000.3[facility] HermannCHEM LVDKX6430-82-49 12:31:0081[facility] HermannCHEM GNKLH0123-27-91 12:31:006.6[facility] HermannCHEM PKLTO8062-55-85 12:31:008.2[facility] HermannCHEM MHKAE5108-42-74 12:31:0024[facility] HermannCHEM BUNLR4055-15-83 12:31:0047 [facility] HermannCHEM UTOOB8758-77-22 12:31:54171Hgfulpds HermannCHEM PANEL 2017-06-24 12:31:004.1[facility] HermannCHEM WGKIT8090-09-14 12:31:04586Qfaqawij HermannCHEM GZZNV9128-93-53 12:31:004.86[facility] HermannCHEM OOOLD0972-56-25 12:31:84660Sxmupkzl PqsinubLBHSNINEZQ8041-70-04 12:31:000.91[facility] GGQDGFLHGT6899-16-31 12:31:00 Test Item Value Reference Range Interpretation Comments PROTIME (test code = PROTIME) 12.2 s 12.0-14.7 [facility] WnridfoHBPRTJAIRS3848-73-56 12:31:00 Test Item Value Reference Range Interpretation Comments aPTT (test code = aPTT) 37.3 s 22.9-35.8 [facility] NcdjfxpLYQMOHLRGE6160-64-08 12:31:15381Tfnbvdlt HermannHEMATOLOGY 2017-06-24 12:31:009.5[facility] HktrwidRTENSDLDJX2634-40-87 12:31:0014.4[facility] EsqvqldLBMVNIILYM1011-33-23 12:31:0029.7[facility] QgmuiknYSFKBOUBDM7794-00-11 12:31:0089.8[facility] YpgrxiyFZQWNVDHIS5947-90-20 12:31:009.8[facility] LNPRADBYIG5859-47-50 12:31:00 Test Item Value Reference Range Interpretation Comments MCH (test code = MCH) 29.7 pg 27.0-31.0 [facility] OlvifztEWQWFVHAQB0547-98-02 12:31:0033.1[facility] HermannHEMATOLOGY 2017-06-24 12:31:009.6[facility] GotambbCKCHETQHTC8201-21-29 12:31:003.31[facility] EcamtnuOFCMVQLMWA2081-35-53 12:31:000.2[facility] RmenkvqBYJWPHWNES8152-14-79 12:31:000.6[facility] SwpzxacIXUZZLNPFF5485-12-30 12:31:002.2[facility] FITLUYXVLU1243-50-82 12:31:005.8[facility] PnozmfoMYCEHOYJOM2679-31-29 12:31:009.3 [facility] FctjqffWGJPEMQOFS0795-95-44 12:31:007.3[facility] HermannHEMATOLOGY 2017-06-24 12:31:0075.4[facility] LokxqufPMBIBYYIDV3680-73-17 12:31:000.7[facility] ZxwokjfAAGBGUCQSI8511-42-02 12:31:000.9[facility] OpxxgynEKHRSCFZTZ8112-12-64 12:31:007.2[facility] HermannCARDIAC EBRSLZY2965-84-18 12:31:000.03[facility] HermannCARDIAC EKTTGCM5893-63-53 12:31:729190Nuoaxuvj HermannCARDIAC ENZYMES 2017-06-24 12:31:009.0[facility] HermannCARDIAC XUJUIDU5045-26-47 12:31:7206178 [facility]annCARDIAC FPJDDVD5541-68-01 12:31:000.9[facility] HermannCHEM PANEL 2017-06-24 12:31:36598Tzzgkydz HermannCHEM HZEFB4818-13-24 12:31:0012[facility] HermannCHEM RJCYK6659-36-70 12:31:000.8[facility] HermannCHEM WCNGU8651-83-57 12:31:003.6[facility] HermannCHEM ILWMZ1919-79-17 12:31:0010[facility] HermannCHEM RYQZQ8435-83-23 12:31:0013.1[facility] HermannCHEM CWIDN5940-72-24 12:31:0021 [facility] HermannCHEM WHEJA2342-09-76 12:31:0024[facility] HermannCHEM PANEL 2017-06-24 12:31:003.0[facility] HermannCHEM WSOJM4523-67-48 12:31:000.3[facility] HermannCHEM LZYXP1575-61-30 12:31:0081[facility]annCHE[facility] LYPEG5405-74-30 12:31:006.6[facility]annCHE[facility] PPTTJ2518-44-26 12:31:008.2[facility]annCHE[facility] ORXFD3957-14-84 12:31:0024[facility]annCHEM MQGOM3118-01-56 12:31:0047 [facility]CHE[facility] EDJQI2251-57-19 12:31:27062Nrgpjclm HermannCHEM PANEL 2017-06-24 12:31:004.1[facility]annCHEM NWPLB8027-63-65 12:31:19378Ctfjuhfi HermannCHEM MUISD1725-52-80 12:31:004.86[facility]annCHE[facility] ZVFYN8280-59-99 12:31:67973Glugqptq IrjcgofWFCRVWYIMU9530-15-45 12:31:000.91[facility] ZLJBOXQOZM8878-78-57 12:31:00 Test Item Value Reference Range Interpretation Comments PROTIME (test code = PROTIME) 12.2 s 12.0-14.7 [facility] QuzrzrjPDBBCMQFQO6234-54-00 12:31:00 Test Item Value Reference Range Interpretation Comments aPTT (test code = aPTT) 37.3 s 22.9-35.8 [facility] FikxfvzJWCTPTOJID5176-05-77 12:31:05163Nxiabdde HermannHEMATOLOGY 2017-06-24 12:31:009.5[facility] ZhsaeqnVSZIRYNBUG5120-21-02 12:31:0014.4[facility] ZpdppcyETEFEBHCTW4185-95-23 12:31:0029.7[facility] NaoyrxmCYALAJXQCX2223-95-07 12:31:0089.8[facility] PbnegjeXNICXRSHKK4731-14-46 12:31:009.8[facility] NTEWRHMHVL4218-05-46 12:31:00 Test Item Value Reference Range Interpretation Comments MCH (test code = MCH) 29.7 pg 27.0-31.0 [facility] RzmiweqVQHUWRPOPI6460-45-82 12:31:0033.1[facility]annHEMATOLOGY 2017-06-24 12:31:009.6[facility] QtcfegiKERPOPGHCV8866-44-95 12:31:003.31[facility] NqrwaayFEUQFEIXNW5665-53-85 12:31:000.2[facility] AyhylfjKHRIRIRLKY5867-34-87 12:31:000.6[facility] NahzgelEVTASLGHED9719-90-60 12:31:002.2[facility] PVIKHMNTOU2006-02-25 12:31:005.8[facility] YjsuptxNKXNJZVFAY4402-63-29 12:31:009.3 [facility] PdbzpnsBIHIFIYTJQ2546-74-15 12:31:007.3[facility]annHEMATOLOGY 2017-06-24 12:31:0075.4[facility] DpdmxqlQVSIDZSHKX9736-14-08 12:31:000.7[facility] MmouxnsGAHNHMONYD5546-35-40 12:31:000.9[facility] AayzbbqUHRIUBCLIM7727-35-35 12:31:007.2[facility] HermannCARDIAC QWJWDNP9205-18-41 12:31:000.03[facility]annCARDIAC PMBBORE2945-16-22 12:31:920048Lzchasbv HermannCARDIAC ENZYMES 2017-06-24 12:31:009.0[facility]annCARDIAC SPLZCFH7342-10-22 12:31:1879548 [facility]annCARDIAC LEGESTK7281-84-21 12:31:000.9[facility]annCHEM PANEL 2017-06-24 12:31:05817Ydfsnfwe HermannCHEM GPEWA4405-78-75 12:31:0012[facility]annCHEM DFGUP7948-91-28 12:31:000.8[facility]annCHEM OOKHI0489-71-06 12:31:003.6[facility]annCHEM BUGKL5275-91-00 12:31:0010[facility]annCHEM RYDZY7034-56-54 12:31:0013.1[facility]annCHEM UKVFX3765-67-32 12:31:0021 [facility]annCHE[facility] TUICC5807-01-93 12:31:0024[facility]annCHEM PANEL 2017-06-24 12:31:003.0[facility]annCHE[facility] VDJVB3231-24-80 12:31:000.3[facility]annCHEM AGLNG7133-95-96 12:31:0081[facility]annCHEM LXVIY2939-75-61 12:31:006.6[facility]annCHEM URVRP2705-31-60 12:31:008.2[facility]annCHEM YPZEE7787-48-27 12:31:0024[facility]annCHEM RWXAS6715-97-52 12:31:0047 [facility]annCHE[facility] UJOOQ9347-28-96 12:31:46266Dzssdtxb HermannCHEM PANEL 2017-06-24 12:31:004.1[facility]annCHEM JHFKJ3172-06-86 12:31:41595Rjhfvdag HermannCHEM LEVGL8788-31-42 12:31:004.86[facility]annCHEM HBJBW9950-66-01 12:31:45510Vdgvavch DayvdpzDVYTDRFKEN9406-36-10 12:31:000.91[facility] YWLLQFOIGN0540-04-58 12:31:00 Test Item Value Reference Range Interpretation Comments PROTIME (test code = PROTIME) 12.2 s 12.0-14.7 [facility] QujehlfRMWOGNAMGO1831-57-76 12:31:00 Test Item Value Reference Range Interpretation Comments aPTT (test code = aPTT) 37.3 s 22.9-35.8 [facility] DibhhbbMESWWPNVZT9246-61-14 12:31:16633Blzmseaj HermannHEMATOLOGY 2017-06-24 12:31:009.5[facility] GgzviazSQGOBKDTSL7578-77-58 12:31:0014.4[facility] KlozjncIBHHBIWKNJ5251-65-94 12:31:0029.7[facility] OsfabzrMMBOFXGJKC7110-36-60 12:31:0089.8[facility] ZhybxbuOXFWWXXEJJ8344-25-12 12:31:009.8[facility] OFJFQWPHWV8594-17-99 12:31:00 Test Item Value Reference Range Interpretation Comments MCH (test code = MCH) 29.7 pg 27.0-31.0 [facility] FhqnnjeKKLYEWELUR3580-67-96 12:31:0033.1[facility]annHEMATOLOGY 2017-06-24 12:31:009.6[facility] MfnwczyPAEMYHODIR9003-72-79 12:31:003.31[facility] IxidvzaSZFYOQSKWT8257-74-40 12:31:000.2[facility] EcnynrxQFZUQCKXZF0167-67-97 12:31:000.6[facility] SvqkyyaPBLNOOEJWO6856-63-77 12:31:002.2[facility] BPXTYDXCFI7253-17-51 12:31:005.8[facility] QylzniiQGRNXMKVYM8394-81-83 12:31:009.3 [facility] UagfarvPMXZQUTXIO0456-52-72 12:31:007.3[facility] HermannHEMATOLOGY 2017-06-24 12:31:0075.4[facility] QnbgtylDYBWVWSWDX9048-63-88 12:31:000.7[facility] UfxnjblQENPULSJOR4012-72-82 12:31:000.9[facility] ZvuarzkXVKWIDJLQV8201-06-04 12:31:007.2[facility] HermannCARDIAC YNAAEAZ2931-44-46 12:31:000.03[facility] HermannCARDIAC CVUAXHL1490-31-73 12:31:032737Qqqmnryx HermannCARDIAC ENZYMES 2017-06-24 12:31:009.0[facility] HermannCARDIAC LXPXUDX5109-32-47 12:31:2711021 [facility]annCARDIAC UHPEFUG5397-53-64 12:31:000.9[facility] HermannCHEM PANEL 2017-06-24 12:31:13685Fdnribpf HermannCHEM YJCPO0253-56-15 12:31:0012[facility]annCHEM WAXTA9588-69-92 12:31:000.8[facility]annCHEM TXSWU5220-39-72 12:31:003.6[facility]annCHEM AWJXJ3263-17-48 12:31:0010[facility]annCHEM JHRYX0900-66-13 12:31:0013.1[facility]annCHEM GHOZF4106-99-44 12:31:0021 [facility]annCHE[facility] JZBCE3065-91-64 12:31:0024[facility]annCHEM PANEL 2017-06-24 12:31:003.0[facility]annCHEM HFTIU9112-78-34 12:31:000.3[facility]annCHEM TGPCQ2280-29-62 12:31:0081[facility] HermannCHEM WAKOJ9960-18-79 12:31:006.6[facility]annCHEM EPXOL1192-87-11 12:31:008.2[facility] HermannCHEM ZHENN8621-71-53 12:31:0024[facility] HermannCHEM QAUVY7257-80-57 12:31:0047 [facility] HermannCHEM KDQCV4031-70-72 12:31:79739Kuvsjznl HermannCHEM PANEL 2017-06-24 12:31:004.1[facility] HermannCHEM DKTRT4692-83-93 12:31:02263Zrvgymkc HermannCHEM NWJUE5361-72-54 12:31:004.86[facility] HermannCHEM DVYNU8189-56-15 12:31:61233Wnwcresg KejdmqqCCFRDWDQMO0622-78-03 12:31:000.91[facility] XSVNYJYRCD1714-32-65 12:31:00 Test Item Value Reference Range Interpretation Comments PROTIME (test code = PROTIME) 12.2 s 12.0-14.7 [facility] FnekqqpHGFDXSSJHR9837-22-93 12:31:00 Test Item Value Reference Range Interpretation Comments aPTT (test code = aPTT) 37.3 s 22.9-35.8 [facility] RfnesykNTLXBRYJNT0691-00-57 12:31:76469Zwlrahmi HermannHEMATOLOGY 2017-06-24 12:31:009.5[facility] OikxiouYXHEZEUEVB7525-93-92 12:31:0014.4[facility] FbhkzqmMIZKVGVCFB9653-73-97 12:31:0029.7[facility] KrdcimxXKMMQAABCN0537-50-43 12:31:0089.8[facility] LhnsfnrBMFJVSUMEP4840-66-47 12:31:009.8[facility] KNFXOKNPNL4109-76-32 12:31:00 Test Item Value Reference Range Interpretation Comments MCH (test code = MCH) 29.7 pg 27.0-31.0 [facility] PyvawqcYWQUXXZOGV3926-24-63 12:31:0033.1[facility] HermannHEMATOLOGY 2017-06-24 12:31:009.6[facility] YobxpuwILRGZQUNIL3748-73-46 12:31:003.31[facility] QilhcdmBVOIIABETC7674-83-30 12:31:000.2[facility] UmlkpqoFKMWBYLVLK9563-35-70 12:31:000.6[facility] JbhkwhkZFULUILTEY7528-04-45 12:31:002.2[facility] UNROLLKBKE3039-49-65 12:31:005.8[facility] BsprnmgEQOMXWWCSH4521-59-40 12:31:009.3 [facility] KombqopPMYDEZRPKN9601-43-24 12:31:007.3[facility] HermannHEMATOLOGY 2017-06-24 12:31:0075.4[facility] OuccptpHJSHXUQYHN7003-19-43 12:31:000.7[facility] DsjeyphLDOYOPGWTI8530-61-16 12:31:000.9[facility] DqlmssiJOEPMCRSDV4506-87-15 12:31:007.2[facility] HermannCARDIAC BYAZMJB9486-27-90 12:31:000.03[facility] HermannCARDIAC AYKQDJP1606-20-03 12:31:409977Mnxytaif HermannCARDIAC ENZYMES 2017-06-24 12:31:009.0[facility] HermannCARDIAC MFRNLXN3257-43-52 12:31:7169338 [facility]annCARDIAC TCAGJJF1537-90-76 12:31:000.9[facility] HermannCHEM PANEL 2017-06-24 12:31:68207Ntizhvoe HermannCHEM QBJBC5668-19-38 12:31:0012[facility] HermannCHEM YWHUC1211-59-53 12:31:000.8[facility] HermannCHEM ADCOG1914-74-87 12:31:003.6[facility] HermannCHEM CLVWR9000-50-96 12:31:0010[facility]annCHEM KVDTD5189-18-68 12:31:0013.1[facility] HermannCHEM PWQAO7710-59-06 12:31:0021 [facility] HermannCHEM OTNYK0133-67-38 12:31:0024[facility] HermannCHEM PANEL 2017-06-24 12:31:003.0[facility] HermannCHEM BAYHT7449-65-78 12:31:000.3[facility] HermannCHEM BMZZK3774-62-55 12:31:0081[facility] HermannCHEM QYJFX7060-10-92 12:31:006.6[facility] HermannCHEM CIEAC0224-74-55 12:31:008.2[facility] HermannCHEM XILBH6097-51-85 12:31:0024[facility] HermannCHEM MPCFX1993-75-81 12:31:0047 [facility] HermannCHEM QQEQJ5845-62-44 12:31:16624Xmgsafbr HermannCHEM PANEL 2017-06-24 12:31:004.1[facility] HermannCHEM WRDRM9688-68-73 12:31:06504Dyuuhffj HermannCHEM JOQFG2183-66-01 12:31:004.86[facility] HermannCHEM FIHGK9193-30-24 12:31:26788Vdtyvscg ZrtcsdmTMTAZCARRC3513-36-70 12:31:000.91[facility] ZUNVHBQIZJ8645-13-57 12:31:00 Test Item Value Reference Range Interpretation Comments PROTIME (test code = PROTIME) 12.2 s 12.0-14.7 [facility] ImthcefHTVSRVVEUT0456-31-55 12:31:00 Test Item Value Reference Range Interpretation Comments aPTT (test code = aPTT) 37.3 s 22.9-35.8 [facility] XrajisjRVNBUOFAFP5116-27-22 12:31:03095Nnejtoev HermannHEMATOLOGY 2017-06-24 12:31:009.5[facility] ZtcazjtNHHPUPDEGH0085-59-01 12:31:0014.4[facility] TeloupiFEVLOUXBKP6568-71-80 12:31:0029.7[facility] EpljpdzXFEBMFQDIJ9106-17-47 12:31:0089.8[facility] OmjpuysGOQOJJDGAI8421-40-92 12:31:009.8[facility] JEJNFLYEZY1894-62-37 12:31:00 Test Item Value Reference Range Interpretation Comments MCH (test code = MCH) 29.7 pg 27.0-31.0 [facility] YupmkcfAJDQCAUURH1128-27-38 12:31:0033.1[facility] HermannHEMATOLOGY 2017-06-24 12:31:009.6[facility] RuenqnxLLEPKNZSSU7182-41-14 12:31:003.31[facility] TijswkzIVFYFZRBLG6602-45-34 12:31:000.2[facility] DdhgibbOUDZUMYVGK4974-27-32 12:31:000.6[facility] OonpjebOUEOREDYWV6527-92-12 12:31:002.2[facility] ATIWNPOSAD2988-44-83 12:31:005.8[facility] IammzvvUXSFWZCOKQ7302-11-84 12:31:009.3 [facility] ZoqegqwQXEVVSIABB5789-06-39 12:31:007.3[facility] HermannHEMATOLOGY 2017-06-24 12:31:0075.4[facility] ZfktabjBGBMYWNXGD0934-02-74 12:31:000.7[facility] MuddlnlLYNIRSKITM0810-37-17 12:31:000.9[facility] PbkxevaFRTKVZFGAQ7242-91-89 12:31:007.2[facility] HermannCARDIAC EIWBHJT8341-39-22 12:31:000.03[facility] HermannCARDIAC IECUVMN5020-90-96 12:31:581632Tzuzngkq HermannCARDIAC ENZYMES 2017-06-24 12:31:009.0[facility] HermannCARDIAC DGIKPXV2902-66-56 12:31:7026899 [facility]annCARDIAC KKINAXT8288-57-40 12:31:000.9[facility] HermannCHEM PANEL 2017-06-24 12:31:46581Mwuotfro HermannCHEM EQMGD6953-15-23 12:31:0012[facility] HermannCHEM RUNND4068-13-42 12:31:000.8[facility] HermannCHEM RYQTE8945-09-97 12:31:003.6[facility] HermannCHEM CBBYT1510-02-71 12:31:0010[facility] HermannCHEM CFHRJ3486-77-71 12:31:0013.1[facility] HermannCHEM YMLOC7121-03-14 12:31:0021 [facility] HermannCHEM HGAPV2908-28-31 12:31:0024[facility] HermannCHEM PANEL 2017-06-24 12:31:003.0[facility] HermannCHEM RSTYW6063-37-38 12:31:000.3[facility] HermannCHEM OSHAY9194-72-14 12:31:0081[facility] HermannCHEM VWSKM9503-29-40 12:31:006.6[facility] HermannCHEM UMVYP8656-74-57 12:31:008.2[facility] HermannCHEM DOZRD9682-73-00 12:31:0024[facility] HermannCHEM HNFCI4377-76-08 12:31:0047 [facility] HermannCHEM XNUNY8929-36-64 12:31:87317Sbtorpnk HermannCHEM PANEL 2017-06-24 12:31:004.1[facility] HermannCHEM PHCAK3543-31-51 12:31:37693Ubgyfnke HermannCHEM IHXRC4920-91-48 12:31:004.86[facility] HermannCHEM EFVBW2857-23-41 12:31:03181Nkndwjty FkfvqceXGQEBUJNIG5765-34-98 12:31:000.91[facility] LIYBPLIZHM7147-14-49 12:31:00 Test Item Value Reference Range Interpretation Comments PROTIME (test code = PROTIME) 12.2 s 12.0-14.7 [facility] LiymbspFYRUAKFQPD0275-15-81 12:31:00 Test Item Value Reference Range Interpretation Comments aPTT (test code = aPTT) 37.3 s 22.9-35.8 [facility] AvjayfjVAVTDHCNPD2658-09-30 12:31:98926Nmzwycgy HermannHEMATOLOGY 2017-06-24 12:31:009.5[facility] ZryupgdKHEALUVAMB6354-75-32 12:31:0014.4[facility] CvvagazFBAVMOUSSR0636-56-47 12:31:0029.7[facility] EynrhvbPNAWEFWUTE2331-89-16 12:31:0089.8[facility] KoyqwknELMVFHGMZQ8410-62-94 12:31:009.8[facility] XKTPFSWUKI4420-30-31 12:31:00 Test Item Value Reference Range Interpretation Comments MCH (test code = MCH) 29.7 pg 27.0-31.0 [facility] QgapkmcHHPAZAGQSZ7620-37-82 12:31:0033.1[facility] HermannHEMATOLOGY 2017-06-24 12:31:009.6[facility] SibuusoTSNJOTXTKF5187-74-34 12:31:003.31[facility] ZpwarimTRUOFPCLFS6693-12-37 12:31:000.2[facility] YilwzykIIWAGMXAEI0613-72-67 12:31:000.6[facility] HeeacfyNAOOSKVMWJ9251-15-16 12:31:002.2[facility] WZMVLJAHQS9818-19-34 12:31:005.8[facility] AcektvuUSBFBWNGXH0167-52-93 12:31:009.3 [facility] KkrxkjjKBBFRRXZGC1359-97-87 12:31:007.3[facility] HermannHEMATOLOGY 2017-06-24 12:31:0075.4[facility] CllzjueCXKWTZDNTG4345-02-15 12:31:000.7[facility] DhlpzlxRCKUMCILKK9859-89-16 12:31:000.9[facility] TypqaunFPPKPJHPNR6879-16-45 12:31:007.2[facility] HermannCARDIAC LKWPOGB0670-13-22 12:31:000.03[facility] HermannCARDIAC CEECCKC5929-56-32 12:31:730444Oqlbxwjd HermannCARDIAC ENZYMES 2017-06-24 12:31:009.0[facility] HermannCARDIAC WDXPIVV1132-96-93 12:31:0938864 [facility] HermannCARDIAC XXCFVYH2134-74-11 12:31:000.9[facility] HermannCHEM PANEL 2017-06-24 12:31:96906Grilyjni HermannCHEM UUGYW1871-13-63 12:31:0012[facility] HermannCHEM HJBYN7258-10-77 12:31:000.8[facility] HermannCHEM NFTHK3596-15-43 12:31:003.6[facility] HermannCHEM JZJHB8104-90-70 12:31:0010[facility] HermannCHEM QYRXZ0496-52-27 12:31:0013.1[facility] HermannCHEM GEOHR3074-82-72 12:31:0021 [facility] HermannCHEM CMQLP0832-19-30 12:31:0024[facility] HermannCHEM PANEL 2017-06-24 12:31:003.0[facility] HermannCHEM BDXZD2656-41-79 12:31:000.3[facility] HermannCHEM NWKUG2843-82-78 12:31:0081[facility] HermannCHEM KOTPO1803-47-58 12:31:006.6[facility] HermannCHEM ZQHIP5164-03-83 12:31:008.2[facility] HermannCHEM JPBFF1361-86-18 12:31:0024[facility] HermannCHEM WZILE7189-38-01 12:31:0047 [facility] HermannCHEM EXHAS3645-19-31 12:31:43693Wdqieavs HermannCHEM PANEL 2017-06-24 12:31:004.1[facility] HermannCHEM GBKKO1704-51-28 12:31:01105Nryiffeq HermannCHEM LNXXQ6360-09-72 12:31:004.86[facility] HermannCHEM THYWP4527-32-86 12:31:13489Azfvjqgk DquahfzJGXXYUOHKU1098-80-44 12:31:000.91[facility] BHQABSGCWO9141-95-23 12:31:00 Test Item Value Reference Range Interpretation Comments PROTIME (test code = PROTIME) 12.2 s 12.0-14.7 [facility] UquercxMQAFGDTMCM9857-61-93 12:31:00 Test Item Value Reference Range Interpretation Comments aPTT (test code = aPTT) 37.3 s 22.9-35.8 [facility] EnhzdjeYUXCTWCHUN9942-32-49 12:31:76805Vnsdrhkj HermannHEMATOLOGY 2017-06-24 12:31:009.5[facility] JwewygdWCBPJWYKQZ9834-87-18 12:31:0014.4[facility] VvaygukJHERQKHNSK3655-92-92 12:31:0029.7[facility] SpszvvxIHSLYRNJCL5734-98-59 12:31:0089.8[facility] McbaqqlPSFGMGQIEJ7276-88-19 12:31:009.8[facility] WBKGALFYAV6857-36-04 12:31:00 Test Item Value Reference Range Interpretation Comments MCH (test code = MCH) 29.7 pg 27.0-31.0 [facility] GbncmolRWOJMAPPRS9034-73-47 12:31:0033.1[facility] HermannHEMATOLOGY 2017-06-24 12:31:009.6[facility] GopapsjHVINAQLGBQ5664-99-93 12:31:003.31[facility] HdwoimvQAYXNDFYXX1968-97-72 12:31:000.2[facility] CvnqngjHIMCFLHENG9053-36-21 12:31:000.6[facility] WiqiuiwRKFJFDSTUR3763-43-49 12:31:002.2[facility] SMXFXNHZZI4644-63-19 12:31:005.8[facility] ImfhqpjJBWNHRMNBD5399-19-80 12:31:009.3 [facility] BecydgcEMLZZCYBMG5849-38-13 12:31:007.3[facility] HermannHEMATOLOGY 2017-06-24 12:31:0075.4[facility] VlupdnhBHVYDJHWQP0619-75-50 12:31:000.7[facility] FfoobebMBYZBTXNRW4011-53-41 12:31:000.9[facility] UuaxvgtWKWWZNGWRA9485-53-12 12:31:007.2[facility] HermannBLOOD BANK EYWYPRZ1454-70-29 16:10:00Negative (06/10/17 11:10 AM)[facility] TsudgimEXLYTUEMNDCW4380-30-67 16:10:0013.5[facility] RsblykoHNIMEFWHSABT1193-60-12 16:10:0013[facility] KpbusotCJCLQKWFMTBE9314-00-31 16:10:0017[facility] MolgcwdCVSQKQHQNWYA5419-21-62 16:10:89732Uztbxbkz [facility] HNRKOPAVIKYY3737-32-05 16:10:73414Rcdvhoeg QmjkveeGWUOKQNUTRLH2435-16-68 16:10:0054[facility] YecoeqaYOGNEIXBTNYQ8808-68-94 16:10:004.69[facility] Advid JBMGSSIMJUMR9207-19-27 16:10:0073[facility] InogfusMNCIKJKAFQKF7252-34-02 16:10:00 7.8[facility] ZkouzhhBKWMGBKEKXXX7495-37-83 16:10:003.5[facility] HermannHEMATOLOGY 2017-06-10 16:10:009.2[facility] RdahcgpCPDBAFAOGS1012-94-49 16:10:00 Test Item Value Reference Range Interpretation Comments MCH (test code = MCH) 30.0 pg 27.0-31.0 [facility] KmggeciLBOUGWLRTJ5921-83-92 16:10:0033.5[facility] HermannHEMATOLOGY 2017-06-10 16:10:0010.2[facility] BgxcuwsBKNKPXNILG0162-09-13 16:10:0014.8[facility] RtgcmiiXRQTTVMAXJ1519-12-29 16:10:92925Gdmpseuf DensczpSSLJQHESPL3458-50-42 16:10:003.39[facility] JfvlwafOWUNYFVALU5862-82-71 16:10:007.9[facility] ZHENXAKYEF7247-07-46 16:10:0030.4[facility] KhsoxjxJQCCMBWZAY8527-91-69 16:10:00 89.6[facility] MjgiqvqTXVTLMSASN4774-39-61 16:10:005.6[facility] HermannHEMATOLOGY 2017-06-10 16:10:000.1[facility] DyfbuqkDXBIIBBJZK2578-55-01 16:10:000.9[facility] UfyqjtcOHOEWFFBMA7565-19-71 16:10:000.6[facility] ItejepkUXAFMKENNL7820-21-43 16:10:001.4[facility] QjkfvneKLRVCHMCQC5505-42-80 16:10:007.7[facility] CVOMDGCBDY5286-30-81 16:10:000.6[facility] CirnhgwGADIVHFXMM6678-02-38 16:10:00 71.6[facility] MnmbnzdBGOVYDXXXQ7073-98-58 16:10:007.5[facility] HermannHEMATOLOGY 2017-06-10 16:10:0011.8[facility] HermannBLOOD BANK PELZSBA0369-04-64 16:10:00 Negative (06/10/17 11:10 AM)[facility] LygnkrgQQYALJNMIIGL2027-59-20 16:10:0013.5 [facility] KklqannAQTPXWOOBXCO6555-01-85 16:10:0013[facility] HermannELECTROLYTES 2017-06-10 16:10:0017[facility] HvvmxfySOYQTZRKQMDN6316-13-30 16:10:32360Wkgntkkn TddoatyHMPXUWGGFUYM2700-30-07 16:10:19259Tncnrpzu BqofamaWQCWEZYFZNOI7345-46-97 16:10:0054[facility] SktqojcJQOCJFXLVUCG3511-45-70 16:10:004.69[facility] UGINRAFLGVIZ0918-71-69 16:10:0073[facility] TehikdqUSJQVGCYSXJF5419-63-47 16:10:00 7.8[facility] QyoedoePMZYEAVMHTMH9923-79-93 16:10:003.5[facility] HermannHEMATOLOGY 2017-06-10 16:10:009.2[facility] MvfwyjjMEBOYMXIBP9813-40-32 16:10:00 Test Item Value Reference Range Interpretation Comments MCH (test code = MCH) 30.0 pg 27.0-31.0 [facility] RnkghkyPYYMAMHRBY5175-50-77 16:10:0033.5[facility] HermannHEMATOLOGY 2017-06-10 16:10:0010.2[facility] CzgrhnpSKBHFGAJVF2268-95-16 16:10:0014.8[facility] XodmckxUEYNKGLBLB8746-80-83 16:10:76188Urdeugzd ThgevslPBXINJJUFP1101-76-62 16:10:003.39[facility] YosxeutFPFKFCMOCM7951-16-97 16:10:007.9[facility] JYVRQPFZHB4272-41-25 16:10:0030.4[facility] GmwirmjOHTVORMNRH7730-38-23 16:10:00 89.6[facility] FaycatjEIXVYDARGK0045-97-12 16:10:005.6[facility] HermannHEMATOLOGY 2017-06-10 16:10:000.1[facility] SlljtuuDWBBXZGTSB6658-56-45 16:10:000.9[facility] HawwrmzJBVMBDIPXA1022-29-31 16:10:000.6[facility] JywtnpoESAABJFJCF9693-15-74 16:10:001.4[facility] GpmifmdFVFYEJGYRR5599-29-89 16:10:007.7[facility] RZHXOGBGGN8795-80-05 16:10:000.6[facility] TdvdjfjIAJKBQKLHU4977-82-57 16:10:00 71.6[facility] IqklzvmGDOQYXSQZX2781-90-18 16:10:007.5[facility] HermannHEMATOLOGY 2017-06-10 16:10:0011.8[facility]annBLOOD BANK XKRSWNX9376-97-22 16:10:00 Negative (06/10/17 11:10 AM)[facility] QcwrwoyDXNLGRSLGGNP4043-30-03 16:10:0013.5 [facility] DtedkbdSHJAYSEZJKXE2270-77-77 16:10:0013[facility] HermannELECTROLYTES 2017-06-10 16:10:0017[facility] VkhkhvhEGADITLFZKIJ8142-85-04 16:10:72788Euvaegsz PhvrwqvWEZGZBXZLRTL1470-15-27 16:10:79928Moueculq KhsvjxdFXASEHTXSBBB9232-95-90 16:10:0054[facility] BevatugYLKNFOOCYLVS3365-92-62 16:10:004.69[facility] JTGKBRTNAMSG2023-77-50 16:10:0073[facility] OgtegslNLZVPDSRHVQA2414-81-14 16:10:00 7.8[facility] FznruycVGCJUSBCQKPE9517-19-58 16:10:003.5[facility] HermannHEMATOLOGY 2017-06-10 16:10:009.2[facility] XzkraaeMTOGFKZVNQ0940-86-73 16:10:00 Test Item Value Reference Range Interpretation Comments MCH (test code = MCH) 30.0 pg 27.0-31.0 [facility] TnyucvjRGFJIOSBDI1143-46-66 16:10:0033.5[facility] HermannHEMATOLOGY 2017-06-10 16:10:0010.2[facility] GaddatuLGGIXCCQLC4710-63-13 16:10:0014.8[facility] OqtqbziVZNWBIFEKM3620-36-66 16:10:68637Egnmlqnu RkqzdvaGKFLKCHLNV1140-93-41 16:10:003.39[facility] VqpzviuEWRJHFKILF2604-55-96 16:10:007.9[facility] QSMKOYNHJR5535-42-33 16:10:0030.4[facility] EojcpvpVEKZJTWPPC7618-66-21 16:10:00 89.6[facility] DjwfovmAPLFISJZQR3811-55-53 16:10:005.6[facility] HermannHEMATOLOGY 2017-06-10 16:10:000.1[facility] NtyxbpqQQSVOZCJRF1074-43-89 16:10:000.9[facility] ZklnykiHRSYAIDASY3732-20-42 16:10:000.6[facility] FllxzxfLFZUTJMJZF9260-83-18 16:10:001.4[facility] KmqyfnnLRFWONCTJJ3501-94-51 16:10:007.7[facility] NHRYLONYKE6173-44-32 16:10:000.6[facility] UryrcxdKJEARLUJCK9635-85-63 16:10:00 71.6[facility] RxtmnxwCQUGBBAUJK0491-59-76 16:10:007.5[facility] HermannHEMATOLOGY 2017-06-10 16:10:0011.8[facility] HermannBLOOD BANK WTWJYHR2974-28-48 16:10:00 Negative (06/10/17 11:10 AM)[facility] OdfgldlXMAWAEWYSNIZ5389-18-16 16:10:0013.5 [facility] JeamxwbFFKPKIWNAOJX5087-90-33 16:10:0013[facility] HermannELECTROLYTES 2017-06-10 16:10:0017[facility] EjytfftFUSQCEFFJHEV4469-48-85 16:10:96087Viqqggyb NjczyqjLXXWAZEIIBDY9503-29-86 16:10:57280Jszsgsze MzcptnuKAMUQQDVUAVO4766-31-31 16:10:0054[facility] PmmgoytLWQRRAYPMKFR4757-85-29 16:10:004.69[facility] QCREPWBLHNOR2667-09-03 16:10:0073[facility] PmkeshyPHBITECEHJMH4564-09-82 16:10:00 7.8[facility] HcrwqgzADEUUHJCOCZO9292-21-84 16:10:003.5[facility] HermannHEMATOLOGY 2017-06-10 16:10:009.2[facility] JubxlobBOYTHHWMWN4902-63-29 16:10:00 Test Item Value Reference Range Interpretation Comments MCH (test code = MCH) 30.0 pg 27.0-31.0 [facility] FfxokezVVDOLKXWKL0517-01-35 16:10:0033.5[facility] HermannHEMATOLOGY 2017-06-10 16:10:0010.2[facility] ZanpfzwKNMSEYYHGY4225-72-91 16:10:0014.8[facility] BvuuyoyXAVVZVJPKN6952-39-02 16:10:42557Xbhdrhzl OceshnrPFWPJEZGID9380-78-90 16:10:003.39[facility] IhledumJOHWGFOKGZ1169-86-10 16:10:007.9[facility] GPUKJWDPQS9627-32-15 16:10:0030.4[facility] NnyxamuDQPFRETMHC0703-50-97 16:10:00 89.6[facility] VerduajPBAUUZGPLA8123-94-11 16:10:005.6[facility] HermannHEMATOLOGY 2017-06-10 16:10:000.1[facility] QtwuzgoZXPHNYUEBB7724-21-70 16:10:000.9[facility] WupbkpoTJFMTDTOBL5559-38-19 16:10:000.6[facility] ZbkblwcKGIWOVMBQH4147-81-10 16:10:001.4[facility] YmwqbhlAEJDNAYGUJ3984-96-92 16:10:007.7[facility] OJPKIIYZTU5659-93-84 16:10:000.6[facility] YhlhxvzSPRILHGDXW2323-84-45 16:10:00 71.6[facility] XfhcqcwLWXBRABAOO5751-50-66 16:10:007.5[facility] HermannHEMATOLOGY 2017-06-10 16:10:0011.8[facility]annBL[facility]OD BANK KSJKHVV0118-50-08 16:10:00 Negative (06/10/17 11:10 AM)[facility] SgoucqsMKRWYOFOLOSA1989-20-16 16:10:0013.5 [facility] VectuctYRJLCJKGZKZX1965-18-75 16:10:0013[facility] HermannELECTROLYTES 2017-06-10 16:10:0017[facility] YcexqtgLLXMEVTVWLHM4985-15-02 16:10:07280Jyvfbivg ImurxhdTCLGSJMFHLBQ2836-85-50 16:10:75637Tbmpwulk TwguurvQLEUOHVNQUDT7488-92-08 16:10:0054[facility] QobbvvjBEVZCWXWPLQZ4881-90-91 16:10:004.69[facility] BTCDRRFWXGOI3788-34-51 16:10:0073[facility] LnpxisbCRODJKXKFLDI9299-49-19 16:10:00 7.8[facility] SdvhywyAIHGVBKUTMTI1190-61-18 16:10:003.5[facility] HermannHEMATOLOGY 2017-06-10 16:10:009.2[facility] XujojpsEEZPSWWJUZ7182-06-34 16:10:00 Test Item Value Reference Range Interpretation Comments MCH (test code = MCH) 30.0 pg 27.0-31.0 [facility] VzuxlvhEDEMYFWRZL7455-57-50 16:10:0033.5[facility] 2017-06-10 16:10:0010.2[facility] XrxezxgKFQCWZFNAM0090-09-67 16:10:0014.8[facility] EgqtyegASSNNCHJQB1123-77-64 16:10:85583Jxzdjrcd QacrhifTFDCMXDEFM5163-45-02 16:10:003.39[facility] HzlfvicEUQHYMYLOR1150-78-39 16:10:007.9[facility] ODVLMPQRPT9047-86-56 16:10:0030.4[facility] QjxzgqkHYUGUDHPVD5611-67-05 16:10:00 89.6[facility] GghcyzmHZZBAUNQFR3500-11-59 16:10:005.6[facility]HE[facility]OLOG[facility] 2017-06-10 16:10:000.1[facility] FofkdngDPTRNRZAEJ0319-50-24 16:10:000.9[facility] YjxehscJTKDTHXQHF2266-14-49 16:10:000.6[facility] IuyvztzCYQXBVAAJX3955-57-32 16:10:001.4[facility] KqdxqkjCMORBTWWJH5457-64-08 16:10:007.7[facility] LORURXIVKY3259-48-75 16:10:000.6[facility] GydpegsZZSQGMCVTY9574-74-12 16:10:00 71.6[facility] IokgutyVEDXZTXADY9475-20-09 16:10:007.5[facility]ann[facility] 2017-06-10 16:10:0011.8[facility] INLPXDQ8148-83-55 16:10:00 Negative (06/10/17 11:10 AM)[facility] KoiwcbgYYMGLCSWZRCG9702-88-49 16:10:0013.5 [facility] UvcllvaYOKMUABDFBUW8055-67-56 16:10:0013[facility]annELECTROLYTES 2017-06-10 16:10:0017[facility] TbhfxudODOVTCLYUVVK4593-92-75 16:10:62405Ynhmippj MobxuokJOETOQWBXAOT9307-79-93 16:10:29123Mfcyockv EjgfaqsFQZDJIGSDQLU7504-21-76 16:10:0054[facility] VukrivzYQYPXDNRXEJX5458-46-64 16:10:004.69[facility] EKROHQEJKODU5206-15-42 16:10:0073[facility] EwpgbypRXKDSCZGZUVU9328-61-42 16:10:00 7.8[facility] SoxsyteVLODJIWKCLXK5422-09-62 16:10:003.5[facility]HE[facility] 2017-06-10 16:10:009.2[facility] NzudkkhQQFNFWLFUE9026-85-87 16:10:00 Test Item Value Reference Range Interpretation Comments MCH (test code = MCH) 30.0 pg 27.0-31.0 [facility] VnhnavzDAWYLKEXVL8962-12-62 16:10:0033.5[facility]HE[facility] 2017-06-10 16:10:0010.2[facility] WpcfrlvXKCGYXHFPD5847-22-81 16:10:0014.8[facility] TmvuhaoFLWAGMFZBB2473-39-80 16:10:10309Gxgyqtpl KgkomdkSQKRODNEDI0743-51-42 16:10:003.39[facility] EzllveaVHGKTJWROV1907-79-05 16:10:007.9[facility] BVDRVAMFQO2519-46-26 16:10:0030.4[facility] OxfvqgoKAGQLBLGLL8194-24-77 16:10:00 89.6[facility] AjsyqchBXNCSRVMTF2060-53-95 16:10:005.6[facility]annHEMATOLOGY 2017-06-10 16:10:000.1[facility] HvkpcjrIYFERTEOSY4602-70-43 16:10:000.9[facility] VljwdyjWLJPOZRGDJ3068-21-44 16:10:000.emorial JfnnrmxAGBNWCKICL2891-67-91 16:10:001.4[facility] EvmhziiMZITLWKSHN6176-09-20 16:10:007.7[facility] DKTLZGHQYV2549-44-76 16:10:000.6[facility] TdduzngWMMWRKTHUE0888-16-17 16:10:00 71.6[facility] YjhczbqHWCDMRGAYA0117-07-51 16:10:007.5[facility]annHEMATOLOGY 2017-06-10 16:10:0011.8[facility]BL[facility] NBMTWUR6099-70-72 16:10:00 Negative (06/10/17 11:10 AM)[facility] KxkgoztORKKIWQWKQHR7545-73-54 16:10:0013.5 [facility] HlrtgpjMWFQNPNSCIXX4186-84-42 16:10:0013[facility]annELECTROLYTES 2017-06-10 16:10:0017[facility] MubksyoNQXSWKSUKRXR8864-88-67 16:10:29098Bqzaphiq ZstwmzaDQYSLZLVRYGO5556-37-34 16:10:42840Azollblf XaukjcrTCUPZHMAKXYF9575-25-14 16:10:0054[facility] KxdxxqxVBYQJLWYWMIO4760-12-08 16:10:004.69[facility] XTIWJULGDECL3299-40-82 16:10:0073[facility] YdtaapxUVJJVZNXLYEY0854-40-97 16:10:00 7.8[facility] SfnsgjdHVXNQDXKNULE0336-92-88 16:10:003.5[facility]annHEMATOLOGY 2017-06-10 16:10:009.2[facility] ScuzzyfMBXTIBLWXI8339-21-59 16:10:00 Test Item Value Reference Range Interpretation Comments MCH (test code = MCH) 30.0 pg 27.0-31.0 [facility] VlkmszhOQMJRKLIQA7640-59-67 16:10:0033.5[facility]annHEMATOLOGY 2017-06-10 16:10:0010.2[facility] RuvadikRMWWZLILJU0220-70-38 16:10:0014.8[facility] CrnhzgwXGBBGBSRLE6060-98-38 16:10:49234Zvvdxmla HnqwfzqNXVTDTIUTC0212-01-60 16:10:003.39[facility] ExycgusXYYHWUGWAT8015-22-92 16:10:007.9[facility] SAINDWBKEN6210-31-54 16:10:0030.4[facility] NyjzvkoXNFBCPVACW1644-40-61 16:10:00 89.6[facility] NmagcajRMEIVCMQXE8308-88-51 16:10:005.6[facility]annHEMATOLOGY 2017-06-10 16:10:000.1[facility] TowhzypCDIDWEGQXH3562-73-35 16:10:000.9[facility] LdmuqsdTDYMKUKMBH8472-52-00 16:10:000.6[facility] YztbeorDQXFWCEEGW2920-71-53 16:10:001.4[facility] FkfqqjjOIDDCKHTHI7677-29-02 16:10:007.7[facility] LDLRXOJBYJ1524-77-77 16:10:000.6[facility] OufcnijXSBIXWGKWR8404-48-64 16:10:00 71.6[facility] CgegvrwODTFRNWPRL0621-33-88 16:10:007.5[facility]annHEMATOLOGY 2017-06-10 16:10:0011.8[facility]BL[facility] DWTYTUC7093-24-41 16:10:00 Negative (06/10/17 11:10 AM)[facility] YkztbnmYUKHDIHVUVTU2702-69-04 16:10:0013.5 [facility] IucmwpyQXQHUJAKUJHJ8917-97-42 16:10:0013[facility]annELECTROLYTES 2017-06-10 16:10:0017[facility] TiuyvylPCABJQUVFXQX2149-54-51 16:10:35876Oczthvld GcwlsjlCJGMWRJWNAXT0166-14-19 16:10:94819Njqirqch IipiqjgVOMQPZTUAZEJ5105-32-42 16:10:0054[facility] ScrxemuKNRCCVFCINZK7992-38-12 16:10:004.69[facility] LUPWNAPMZVIL3625-26-37 16:10:0073[facility] GwlggvjYEXMOVCEIJQT8529-17-15 16:10:00 7.8[facility] KejaagwPLNSRWODYPHK8640-38-40 16:10:003.5[facility]annHEMATOLOGY 2017-06-10 16:10:009.2[facility] RvrmgkdZIONKXCSRR0723-03-98 16:10:00 Test Item Value Reference Range Interpretation Comments MCH (test code = MCH) 30.0 pg 27.0-31.0 [facility] ObisuluPURVSCIMRB5229-29-27 16:10:0033.5[facility]annHEMATOLOGY 2017-06-10 16:10:0010.2[facility] FmiqjswTDVVEKEOTJ6911-04-87 16:10:0014.8[facility] IrlrjkbTBYXQEXTSD8669-48-14 16:10:17885Abktzrwo WlooewmPCYHAXEDTC3397-77-02 16:10:003.39[facility] GudithrNSCTRSIWYM8393-70-46 16:10:007.9[facility] UFMAZDYSBN1367-61-71 16:10:0030.4[facility] KixowrzVEABZNBUHR9894-13-10 16:10:00 89.6[facility] OioigvuCIQDQRFMMI5211-43-11 16:10:005.6[facility]annHEMATOLOGY 2017-06-10 16:10:000.1[facility] LrpwnqkQAFIGAUPLG1809-33-17 16:10:000.9[facility] NwlekwwEWIGRMKCAQ0334-84-45 16:10:000.6[facility] OzjczwpSOMZTEQMWZ9147-91-09 16:10:001.4[facility] VajkrmbFMJSZDAQMT9638-75-04 16:10:007.7[facility] RVKKQMXKRG7976-41-75 16:10:000.6[facility] IpysllrEIAMJQWWHZ8375-56-96 16:10:00 71.6[facility] VgtkaxbSDBMKXXLHA6393-08-59 16:10:007.5[facility]annHEMATOLOGY 2017-06-10 16:10:0011.8[facility] FFJZNRC9035-68-62 16:10:00 Negative (06/10/17 11:10 AM)[facility] ZbjynhqZVOCTRONSCBJ5726-11-75 16:10:0013.5 [facility] CfqfsytMVCFHXUMSTPH5062-16-14 16:10:0013[facility]annELECTROLYTES 2017-06-10 16:10:0017[facility] LgnfisiMSPONQPMSCPF8382-35-42 16:10:73397Bwcasjia NrkocvjGMTUVQKFJJCD5110-76-37 16:10:27345Rrsveymb CgwxhdbSFUPPPBMHJKR8435-09-32 16:10:0054[facility] WkpxzehBTBVAXZBVFAO7355-02-60 16:10:004.69[facility] DIHOFJYTLTPA3685-57-98 16:10:0073[facility] IsqcmrvFJGPRFNTCYHT6892-32-16 16:10:00 7.8[facility] EcazlnpFOYZWIMNJZNP8198-00-35 16:10:003.5[facility]annHEMATOLOGY 2017-06-10 16:10:009.2[facility] SaxhtrtAUOGCBXGNL1817-75-67 16:10:00 Test Item Value Reference Range Interpretation Comments MCH (test code = MCH) 30.0 pg 27.0-31.0 [facility] OfenoqkKNKSJACILJ8354-79-09 16:10:0033.5[facility]annHEMATOLOGY 2017-06-10 16:10:0010.2[facility] SsawhhkUCCUHFWJDG0779-85-86 16:10:0014.8[facility] ZwwzpbrCPQTBJURWA7932-77-13 16:10:63841Osmrabqg XhucocsNZIPDGYNHA0911-29-06 16:10:003.39[facility] XhwxvzzROQLOBMSND0690-90-06 16:10:007.9[facility] IIESNNUXIX3119-09-41 16:10:0030.4[facility] YhodmeoURIRVCQMYW6957-30-63 16:10:00 89.em[facility] KtxxugfLUSKOMBXDP6099-87-33 16:10:005.6[facility]annHEMATOLOGY 2017-06-10 16:10:000.1[facility] GsnzeboGZGOHCESQV8264-93-77 16:10:000.9[facility] PflhhpnWCIHAJESYW9297-50-64 16:10:000.emorial IlqygflFXTTZFGWRK3839-60-22 16:10:001.4[facility] TvzjjdwSPGYFQZPAW8745-45-60 16:10:007.7[facility] ULEFGKJVCQ2439-90-13 16:10:000.6[facility] LtvyxqbAJWMWHZNIN5912-36-59 16:10:00 71.6[facility] QliqsoiMQRIXAYMWV1320-44-90 16:10:007.5[facility]annHEMATOLOGY 2017-06-10 16:10:0011.8[facility] HermannSpecial Procedure Send Qyg6729-38-49 09:36:00 Test Item Value Reference Range Interpretation Comments Performing Site (test See [facility] Report code = SITE) Test Ordered (test B-Type Natriuretic code = TESTORD) Peptide CHEM NAJNZ3020-80-57 03:25:00>0.0[facility]annCHEM EKMGS7616-80-81 03:25:000.1[facility]annCHEM NODQF7542-98-59 03:25:00<0.1[facility] CHEM OCDOW4087-51-93 03:25:0050[facility]annCHEM OPYDW9602-79-67 03:25:0041 [facility]annCHEM MVPFR1016-33-82 03:25:000.4[facility]annCHEM PANEL 2016-12-07 03:25:15482Uknpaqjd HermannCHEM SKTUX2176-68-29 03:25:005.0[facility]annCHEM ERUMD9436-63-08 03:25:007.0[facility]annCHEM LVQZP2522-71-08 03:25:002.0[facility] SzvvkaaWDEDCLEFANDM9536-55-46 03:25:40524Dmkpkghx Mcfarlan ZNJHPTCCQAQU0672-05-46 03:25:004.2[facility] IygclyqGYFZFPIFXNUK2937-98-68 03:25:003.5[facility] AqkbmxsAWTDAABPQNRR6788-51-90 03:25:67327Mkonpagz [facility] PRYKRREEGRAI0343-93-49 03:25:0017[facility] GhqupzcJDMJAJSTODDT5854-17-94 03:25:00 1.14[facility] TggwruzFXVXDKEAHNNG6838-10-84 03:25:0018.0[facility] TGCFYJVHTTAF4312-07-51 03:25:0041[facility] QcuiimiOGBIDXLQJHZS7896-46-93 03:25:00 94[facility]annCHEM ROPSC9535-06-19 03:25:00>0.0[facility] HermannCHEM PANEL 2016-12-07 03:25:000.1[facility]annCHEM PGVTI2380-62-75 03:25:00<0.1 [facility]annCHEM QXQXL3965-63-78 03:25:0050[facility]annCHEM PANEL 2016-12-07 03:25:0041[facility]annCHEM BLXXY1526-08-04 03:25:000.4[facility]annCHEM AERRJ7389-19-98 03:25:11217Hohamefq HermannCHEM WQKST9779-68-38 03:25:005.0[facility]annCHEM CIVWB6921-14-25 03:25:007.0[facility]annCHEM WJIFQ8881-81-63 03:25:002.0[facility] YwfuhiqKKAFQPFADUXX4105-56-88 03:25:46458 [facility] LeeoxbkIIDSLUPVAHKM9553-15-74 03:25:004.2[facility] HermannELECTROLYTES 2016-12-07 03:25:003.5[facility] BlmlvhjDGDDZIMRKVCN4074-85-45 03:25:37718Qmbutnps ZbouuwyLUWXOCDEPLXJ0715-78-74 03:25:0017[facility] EmfarbzCXZJUJLLNSET8724-18-82 03:25:001.14[facility] IjsimemDIWURZBCAWAH1379-65-88 03:25:0018.0[facility] XXUVOKQLIDME3164-77-67 03:25:0041[facility] RupqjmyXVSFBIQLLMHM2555-23-75 03:25:00 94[facility]annCHEM GGLAR0555-74-66 03:25:00>0.0[facility]annCHEM PANEL 2016-12-07 03:25:000.1[facility]annCHEM NAAFB1519-37-29 03:25:00<0.1 [facility]annCHEM GKJCV1672-33-24 03:25:0050[facility]annCHEM PANEL 2016-12-07 03:25:0041[facility]annCHEM PQOQP8960-47-67 03:25:000.4[facility]annCHEM CBDOC5171-99-59 03:25:05638Xrovkjxx HermannCHEM ROILI3777-23-64 03:25:005.0[facility] HermannCHEM RDGPN6289-06-54 03:25:007.0[facility]annCHEM BRLOS4029-56-78 03:25:002.0[facility] NfdfntoSODRDYNECJEI4123-41-07 03:25:95680 [facility] AumyyllPCHMNAAETVVM9349-93-53 03:25:004.2[facility] HermannELECTROLYTES 2016-12-07 03:25:003.5[facility] PpjcoisLNWLUHHHDSNU0918-30-97 03:25:90012Wkchajjp BojbedrEVRRIVJKZOTP8094-93-57 03:25:0017[facility] DhujzovZFVUAVQDXYGJ2664-64-13 03:25:001.14[facility] DnzkftnOWXEMSAJKIKW7717-13-81 03:25:0018.0[facility] ZNCYVKCZNHBC6654-07-63 03:25:0041[facility] SfzklrsDXZZZRNGOSOV3678-28-49 03:25:00 94[facility]annCHEM GHIUK7532-95-32 03:25:00>0.0[facility]annCHEM PANEL 2016-12-07 03:25:000.1[facility]annCHEM NEPTD7445-14-06 03:25:00<0.1 [facility]annCHEM AUSTV5974-93-48 03:25:0050[facility]annCHEM PANEL 2016-12-07 03:25:0041[facility]annCHEM IZKRL7835-49-25 03:25:000.4[facility]annCHEM KBNXF4872-17-95 03:25:37185Mcmofzeu HermannCHEM OIQJA0573-58-00 03:25:005.0[facility]annCHEM ARTHP9536-60-73 03:25:007.0[facility]annCHEM KETLX0974-65-57 03:25:002.0[facility] JetllnwCYUGJMXQKSTF3372-04-86 03:25:23441 [facility] JmehephQIFPCMKQXTMR5314-26-36 03:25:004.2[facility] HermannELECTROLYTES 2016-12-07 03:25:003.5[facility] MxcngixOPBANASKRTPX2869-42-51 03:25:74442Rjvradzd JrmibyvDOSDUQUYDRTE8900-98-50 03:25:0017[facility] RjklvjtHGIQEZQSKJVN8946-72-11 03:25:001.14[facility] RdosetxOJCYUTYKRTJU6005-47-83 03:25:0018.0[facility] FNFEXMUWWVMJ8767-73-12 03:25:0041[facility] SzrtwhiWHJBRMYZMJDK0687-74-77 03:25:00 94[facility] HermannCHEM AMVAD8897-56-43 03:25:00>0.0[facility] HermannCHEM PANEL 2016-12-07 03:25:000.1[facility]annCHEM PJZCI7891-39-88 03:25:00<0.1 [facility]annCHEM EYEVJ1623-14-07 03:25:0050[facility]annCHEM PANEL 2016-12-07 03:25:0041[facility]annCHEM CAVUW4776-16-88 03:25:000.4[facility]annCHEM GIKAD4088-40-74 03:25:27566Jwwzsrnt HermannCHEM OUYOQ3290-51-75 03:25:005.0[facility]annCHEM ZZLUQ0337-12-78 03:25:007.0[facility]annCHEM MNEJX6951-76-33 03:25:002.0[facility] QuovqizPABDASVUVPHK9481-29-78 03:25:72933 [facility] DpxvaggAPDIUZVRINZD1050-47-67 03:25:004.2[facility] HermannELECTROLYTES 2016-12-07 03:25:003.5[facility] PjpennpNWYJWHFFRYVL4554-98-48 03:25:85100Vtoynpfo GptlfhxJIQUTGUIPXTK1964-19-81 03:25:0017[facility] GkhnidpNAOMCABKPLQH2188-20-70 03:25:001.14[facility] OnwyvxfIPVBZYPTZXGJ3285-80-95 03:25:0018.0[facility] QFMCBOZZVZFX9836-07-24 03:25:0041[facility] DjpkohpTIOEGHZYGGYY0388-63-38 03:25:00 94[facility] HermannCHEM SFLSB1903-30-26 03:25:00>0.0[facility] HermannCHEM PANEL 2016-12-07 03:25:000.1[facility] HermannCHEM FAOCL5972-94-69 03:25:00<0.1 [facility]annCHEM JPVFN1761-88-38 03:25:0050[facility]annCHEM PANEL 2016-12-07 03:25:0041[facility] HermannCHEM OYEKK7189-76-38 03:25:000.4[facility]annCHEM IZTRN7176-71-62 03:25:39895Rrlggfeg HermannCHEM AEPAE1018-59-99 03:25:005.0[facility]annCHEM RMAMW3600-25-98 03:25:007.0[facility]annCHEM TWVKU7094-24-09 03:25:002.0[facility] NnktfvqHEGCDEJNTAOP6152-78-68 03:25:82922 [facility] EoneqyoGCUFMCJFYHWF4103-04-92 03:25:004.2[facility] HermannELECTROLYTES 2016-12-07 03:25:003.5[facility] WqzrpugNTGWSDUHEBOQ7739-86-42 03:25:13631Mrtnmfkr YalnltjDOBXNBDYRSQO6551-54-36 03:25:0017[facility] JypcikeHQGXCHYMUOCF2381-00-63 03:25:001.14[facility] VbkwrwsKTYMSONFROSK2538-09-84 03:25:0018.0[facility] XPTFNRSYEMAS9815-30-12 03:25:0041[facility] QovfwetMNNBAQSYBGWA2382-73-54 03:25:00 94[facility] HermannCHEM PCXKX2311-86-58 03:25:00>0.0[facility] HermannCHEM PANEL 2016-12-07 03:25:000.1[facility]annCHEM ROZVC7825-15-23 03:25:00<0.1 [facility]annCHEM VYJWE8859-67-74 03:25:0050[facility]annCHEM PANEL 2016-12-07 03:25:0041[facility] HermannCHEM BXUVC4026-02-86 03:25:000.4[facility]annCHEM PAQWV1316-63-08 03:25:82848Zyyyjxdk HermannCHEM EAIRM0542-35-10 03:25:005.0[facility]annCHEM VLBIK7856-89-32 03:25:007.0[facility]annCHEM IZRDZ2570-74-37 03:25:002.0[facility] PtzsnkmXGLOJYDPWAJF6830-17-72 03:25:27598 [facility] KorajagMDRFGIFPJLSR6188-72-02 03:25:004.2[facility] HermannELECTROLYTES 2016-12-07 03:25:003.5[facility] XlrhzurTHYWFAPPRXWB3074-23-09 03:25:34180Xbcubxew CkkbnjqLARXTPKKJDKS0527-60-28 03:25:0017[facility] UztivmkQIBIOLGSUYXW6341-22-78 03:25:001.14[facility] ByhbehwEIWKLKXETLRO1003-26-15 03:25:0018.0[facility] JGAIFQCOLQQV4047-54-19 03:25:0041[facility] QkwigyaSAGDTQPSICDE1720-08-23 03:25:00 94[facility] HermannCHEM DZUCX3241-35-96 03:25:00>0.0[facility] HermannCHEM PANEL 2016-12-07 03:25:000.1[facility]annCHEM VPXXJ8983-00-75 03:25:00<0.1 [facility]annCHEM KURTJ4689-67-92 03:25:0050[facility]annCHEM PANEL 2016-12-07 03:25:0041[facility] HermannCHEM JZJPS7150-43-76 03:25:000.4[facility]annCHEM QUBTB1989-47-86 03:25:77305Liztgilg HermannCHEM ZBFPP8421-26-87 03:25:005.0[facility] HermannCHEM HYGYD1339-81-08 03:25:007.0[facility]annCHEM AWBPA4516-94-57 03:25:002.0[facility] CyrnbbxYHRXITNSKNQZ3892-55-43 03:25:92060 [facility] LiwqpimOMHYUCOGNAGT2657-72-87 03:25:004.2[facility] HermannELECTROLYTES 2016-12-07 03:25:003.5[facility] TeylopqIKCBJEFPNPZZ5089-76-45 03:25:62431Lvmvoyyp KmzuvtqYPEYZOWYHTSA1316-85-88 03:25:0017[facility] OqtxdsfBLYJQGJGAPJZ7395-67-70 03:25:001.14[facility] FhcyvcxAYPMGXIFWIFQ5141-36-58 03:25:0018.0[facility] PKHENKHFBXOD5324-60-27 03:25:0041[facility] NmkjzawNTDIUIWMCLUK7339-86-93 03:25:00 94[facility] HermannCHEM YKCRR5576-90-48 03:25:00>0.0[facility] HermannCHEM PANEL 2016-12-07 03:25:000.1[facility]annCHEM SHIBZ7948-53-86 03:25:00<0.1 [facility]annCHEM JPZXS1467-51-35 03:25:0050[facility]annCHEM PANEL 2016-12-07 03:25:0041[facility] HermannCHEM XYPSZ5446-07-38 03:25:000.4[facility]annCHEM RYJAK3312-26-35 03:25:20940Gphsummm HermannCHEM ZCGKP9848-96-44 03:25:005.0[facility] HermannCHEM OANAS8393-06-03 03:25:007.0[facility]annCHEM ZLDTQ3474-20-39 03:25:002.0[facility] VztzrduASISQUSTIRAM5283-97-95 03:25:52930 [facility] YumjwzkXIXNZZABVKKS7439-07-79 03:25:004.2[facility] HermannELECTROLYTES 2016-12-07 03:25:003.5[facility] RzwbzuvIKOEZURWHBWN4110-94-95 03:25:79825Dnsiuope AkcfduoWFJZPLPMSVBV2159-15-10 03:25:0017[facility] BlvvuexIZVVLCQXFJZJ6704-01-19 03:25:001.14[facility] ZafpmglJLNBNTOXQPLH1665-05-06 03:25:0018.0[facility] XQFPBVIXXLLL2604-32-13 03:25:0041[facility] XoyutzeHYXRBWWCLGDB8473-64-26 03:25:00 94[facility] HermannCARDIAC MACYQXR8004-67-47 03:17:892805Csixaqew HermannCARDIAC BUCVWIQ1251-69-96 03:17:007.6[facility] HermannCARDIAC AXPGEJM8842-81-19 03:17:00 0.04[facility] HermannCARDIAC GRBQRFO6003-50-97 03:17:000.5[facility] ZYTWLKFKSB9326-90-24 03:17:0011.6[facility] NmkexmlQDGCTGJDIG7974-19-26 03:17:00 3.49[facility] TrdxneiFVUOPSEWQQ6108-44-52 03:17:0010.4[facility] HermannHEMATOLOGY 2016-12-07 03:17:00 Test Item Value Reference Range Interpretation Comments MCH (test code = MCH) 29.7 pg 27.0-31.0 [facility] RafgqioMAHLUAJPYN7511-04-30 03:17:0031.1[facility] HermannHEMATOLOGY 2016-12-07 03:17:0088.9[facility] SjbqvgnSYJNEZUDQB0556-29-64 03:17:0033.4[facility] ObsifyfCLDACENCJQ0223-82-77 03:17:0014.3[facility] OnxhfhlSFINAHIOUT6659-08-92 03:17:17880Jxnfrset SksyfoiWNEVALFBTP9378-32-07 03:17:008.2[facility] CTGTIOYJUO7241-37-15 03:17:0077.5[facility] QzpfxpaXHNKFBNKUA1442-40-26 03:17:00 0.4[facility] UrtvvmnQHSXOUUAIZ7262-85-11 03:17:000.1[facility]annHEMATOLOGY 2016-12-07 03:17:001.2[facility] LjsldokOWIKLBGNEQ2532-66-61 03:17:008.1[facility] PdoakmmBLHHQAWLEU2571-94-26 03:17:009.6[facility] ZzfatimYQMURFWWXZ3654-95-26 03:17:001.1[facility] YstesblTBUWVSMJTQ4245-86-70 03:17:009.0[facility] YAYJMDCJOP2354-09-26 03:17:000.9[facility] OeozqwdHDFISOUZJM1978-57-16 03:17:003.6 [facility]annCARDIAC JKZUVIB7437-61-23 03:17:484191Fquzbqio HermannCARDIAC QZNJFVS2410-40-90 03:17:007.6[facility] HermannCARDIAC NPSTISW7203-65-55 03:17:00 0.04[facility] HermannCARDIAC LMQHJHW0253-19-62 03:17:000.5[facility] OKILOKEEOW8407-66-99 03:17:0011.6[facility] IzfutaqONBEZAXDZW1226-17-40 03:17:00 3.49[facility] CorstrrIRDNHWDCXP9024-89-35 03:17:0010.4[facility]annHEMATOLOGY 2016-12-07 03:17:00 Test Item Value Reference Range Interpretation Comments MCH (test code = MCH) 29.7 pg 27.0-31.0 [facility] HrilgsmVTQMHYOXZM7264-45-92 03:17:0031.1[facility]annHEMATOLOGY 2016-12-07 03:17:0088.9[facility] AxegizwMHEYUFYXWF1657-45-72 03:17:0033.4[facility] YmofboaXURUKQUTCO3959-43-88 03:17:0014.3[facility] KorprnsQWPRQLHHQR3667-01-54 03:17:71286Nrapspgl EszjzjxELTBYPNBIU4771-37-09 03:17:008.2[facility] CHMGDAJEJE8799-90-34 03:17:0077.5[facility] FerexlcQZYUTBVVBE2208-79-64 03:17:00 0.4[facility] IothzouWTFQMVAFEF5177-94-79 03:17:000.1[facility]annHEMATOLOGY 2016-12-07 03:17:001.2[facility] YmccddlZBNNBXIYSC3182-41-53 03:17:008.1[facility] IvfiulgCSJZLKXFWM3329-06-90 03:17:009.6[facility] DnubvecNEOQXQEGJR4756-75-72 03:17:001.1[facility] QffjyetRFOYXNDYJD9002-73-58 03:17:009.0[facility] GYDOJWYLBY0815-97-66 03:17:000.9[facility] VjfqahlESQYHPARSH2633-13-50 03:17:003.6 [facility]annCARDIAC EKAWFYA6473-19-66 03:17:527109Qyjnervo HermannCARDIAC PYXXDGH8702-75-84 03:17:007.6[facility]annCARDIAC CLOSUOJ3629-08-76 03:17:00 0.04[facility]annCARDIAC WVCJHJZ1814-03-76 03:17:000.5[facility] PYSNWZHWRN0307-44-88 03:17:0011.6[facility] LzngclfMRGHBWWAPL8144-17-53 03:17:00 3.49[facility] IkannxuUELREFOGBQ8711-53-45 03:17:0010.4[facility]annHEMATOLOGY 2016-12-07 03:17:00 Test Item Value Reference Range Interpretation Comments MCH (test code = MCH) 29.7 pg 27.0-31.0 [facility] HbzqhrhBNNEMTSNDO7374-15-29 03:17:0031.1[facility]annHEMATOLOGY 2016-12-07 03:17:0088.9[facility] KncvdxwDFKYFUPKMX1377-45-62 03:17:0033.4[facility] UijrhjpGQGMLHXBKQ4160-87-53 03:17:0014.3[facility] SwgtzgfEVMNWDBQMO6325-85-16 03:17:74948Gkexikrp HovfybqUOFPUEJOZZ5589-69-90 03:17:008.2[facility] UWEOTYAYUO5277-52-91 03:17:0077.5[facility] KkgmgwhAOJVNCADQL4105-58-51 03:17:00 0.4[facility] MyigvmvHBGXMRSTMQ8177-16-16 03:17:000.1[facility]annHEMATOLOGY 2016-12-07 03:17:001.2[facility] QnqyjjoKNRHLNJTRQ7185-20-39 03:17:008.1[facility] MwpkkxtDUKQPUOBCX1172-29-02 03:17:009.6[facility] HbfbxxiVOOFFTKPMJ1445-92-84 03:17:001.1[facility] LtskrjpDCPKLIYXPJ5446-15-88 03:17:009.0[facility] VISOQRNBPQ2369-43-76 03:17:000.9[facility] SuelqzyPAKGKZVHGO9759-57-55 03:17:003.6 [facility]annCARDIAC RBGXFNB0548-38-53 03:17:399397Eoztztrz HermannCARDIAC IPEOJPY4227-25-52 03:17:007.6[facility]annCARDIAC UHTCJPB4725-90-40 03:17:00 0.04[facility]annCARDIAC MGIYAXC0832-59-15 03:17:000.5[facility] KTMMNOJIKG7140-01-60 03:17:0011.6[facility] AbtaesiJFHQIEANEB8534-05-98 03:17:00 3.49[facility] KdoxmtpLUGNCJDHAW2737-76-01 03:17:0010.4[facility]annHEMATOLOGY 2016-12-07 03:17:00 Test Item Value Reference Range Interpretation Comments MCH (test code = MCH) 29.7 pg 27.0-31.0 [facility] RstkqfbPFVSSXYAVF3411-78-58 03:17:0031.1[facility]annHEMATOLOGY 2016-12-07 03:17:0088.9[facility] RnqkpnyHCLLVWGNUV8568-29-75 03:17:0033.4[facility] UevhemjWEBSXTWWFK8639-19-42 03:17:0014.3[facility] ArxmbotSFIIRVFPAH2138-96-00 03:17:27443Vzdpryda FjwkntxQKRMLMTSYI6971-06-99 03:17:008.2[facility] LBJOSRYIJS1087-34-83 03:17:0077.5[facility] YmivuldGVDCPUYEKQ2461-13-64 03:17:00 0.4[facility] IxbnzveVWFLIMNEMU7388-04-44 03:17:000.1[facility] HermannHEMATOLOGY 2016-12-07 03:17:001.2[facility] ZyfhlmqVJBIRFZELR9449-93-60 03:17:008.1[facility] MzspetqMGAZHGCGRE5202-93-91 03:17:009.6[facility] DabnrbcHNNHLTDCQO1627-68-41 03:17:001.1[facility] WfxowicZBBQJGYTZO7301-54-41 03:17:009.0[facility] QITSIRFOKQ1748-94-59 03:17:000.9[facility] NfzbnroJRSBWURALI9218-26-88 03:17:003.6 [facility]annCARDIAC ZDMTAFD8776-13-16 03:17:991908Fgsoofzw HermannCARDIAC MUYBGXR2763-20-09 03:17:007.6[facility]annCARDIAC KFEZXWN6655-77-78 03:17:00 0.04[facility]annCARDIAC TWMLHRU5947-15-03 03:17:000.5[facility] XRMSDPLGHX3639-40-93 03:17:0011.6[facility] IlefbiqXXKNYZIRSA6873-85-25 03:17:00 3.49[facility] UtsryylFGHIHXHZFZ5549-49-15 03:17:0010.4[facility]annHEMATOLOGY 2016-12-07 03:17:00 Test Item Value Reference Range Interpretation Comments MCH (test code = MCH) 29.7 pg 27.0-31.0 [facility] DoccsioEHSZJLIPPB5298-51-71 03:17:0031.1[facility] HermannHEMATOLOGY 2016-12-07 03:17:0088.9[facility] RwlovezCYVAZZNQHW9866-85-94 03:17:0033.4[facility] MdyvxtcHWRBWOPPHZ9903-46-74 03:17:0014.3[facility] HbfbqsiNEARKRGWSI4773-62-24 03:17:01212Pjeylunl NujbidcTXOYXZLUAY2897-54-81 03:17:008.2[facility] GJQQLQNJSZ3959-46-09 03:17:0077.5[facility] PebefgoMEULKLMQEU1664-94-07 03:17:00 0.4[facility] GytwiemZPACVDVZKK2305-26-61 03:17:000.1[facility] HermannHEMATOLOGY 2016-12-07 03:17:001.2[facility] UsmfjnjABXIHCZFXN6904-26-78 03:17:008.1[facility] CujihxtCQJPDBZZXC3529-84-70 03:17:009.6[facility] UbikkvkEAOINAOXOK0595-78-99 03:17:001.1[facility] DncokwoPXGRAUYQAF3265-94-58 03:17:009.0[facility] YDOYGAWWIU8870-28-55 03:17:000.9[facility] MtxfzkfJETOZXEJYI9583-93-87 03:17:003.6 [facility]annCARDIAC EUMXXXZ1004-11-38 03:17:014304Gnvjdqoe HermannCARDIAC VQAGLLK6543-77-04 03:17:007.6[facility]annCARDIAC BBTPRPW8262-32-58 03:17:00 0.04[facility] HermannCARDIAC HLJFJOH3721-26-62 03:17:000.5[facility] ZCUKVNMGZC9379-99-32 03:17:0011.6[facility] KijhclsTEWJQQVWFL3643-25-21 03:17:00 3.49[facility] BuuqunuXEEREUCGQF8859-42-17 03:17:0010.4[facility] HermannHEMATOLOGY 2016-12-07 03:17:00 Test Item Value Reference Range Interpretation Comments MCH (test code = MCH) 29.7 pg 27.0-31.0 [facility] PorblhlRVDYUUWJQB4062-38-27 03:17:0031.1[facility] HermannHEMATOLOGY 2016-12-07 03:17:0088.9[facility] UriufavWKPINTCCHS6654-90-49 03:17:0033.4[facility] FwmcpzjWWIWZDCXDL2473-35-10 03:17:0014.3[facility] GgeecrwSHMQAAKTHY1812-41-30 03:17:51005Dhbbgbvg LenktckGWIGHUFTND6154-64-90 03:17:008.2[facility] YIJRKFYWCO7239-94-78 03:17:0077.5[facility] LhhaaxxIIXLDTYWMO1549-09-48 03:17:00 0.4[facility] SwtgfxdRNOEJSHPBR4430-53-60 03:17:000.1[facility] 2016-12-07 03:17:001.2[facility] EjjmostDRLPHANLFH1803-97-69 03:17:008.1[facility] IpibfggYGBYPXEUAS2741-01-63 03:17:009.6[facility] EkcrywtGQBTNOPQGB8588-15-40 03:17:001.1[facility] WatfruuMJSGWMSRVQ7873-97-24 03:17:009.0[facility] RRYNTAKEBZ3441-20-21 03:17:000.9[facility] JaeqvzzDUUORLPAEB7947-76-29 03:17:003.6 [facility] ANEKNEG8335-96-65 03:17:709025Brxenlhu [facility]annCARD[facility] YPLOWVU2114-45-37 03:17:007.6[facility] APWDUWN3475-74-70 03:17:00 0.04[facility] ELWHVJM1253-41-62 03:17:000.5[facility] TJVFJKZVIP4345-36-02 03:17:0011.6[facility] ZqvmfyrVPFZREWZIU3230-66-15 03:17:00 3.49[facility] NjdaztkQCNSUFNNFP8488-79-34 03:17:0010.4[facility]annHEMATOLOGY 2016-12-07 03:17:00 Test Item Value Reference Range Interpretation Comments MCH (test code = MCH) 29.7 pg 27.0-31.0 [facility] JjynkduYUBBSGSMCG9316-16-70 03:17:0031.1[facility] 2016-12-07 03:17:0088.9[facility] YshygeuCMVGOLGMTB9589-32-53 03:17:0033.4[facility] OjxrjjwIYACBZANVH5110-51-54 03:17:0014.3[facility] RickkiyBTQMPNOFPF7089-66-64 03:17:21887Fqabysmz CpafvovWZKKKUJJUR5165-45-52 03:17:008.2[facility] JLPLTIPZNR4221-18-64 03:17:0077.5[facility] NdzbqrkZJAWHKDETO6325-58-60 03:17:00 0.4[facility] HeepgcxWZBFFVESEQ0390-79-81 03:17:000.1[facility] 2016-12-07 03:17:001.2[facility] LycmlwvVGTEZYYLZS7979-43-51 03:17:008.1[facility] KzaokhgUMUVSJMEYG4454-54-93 03:17:009.6[facility] OjumpthGPGTUSFRBP0750-47-81 03:17:001.1[facility] ZeiyzodZJGVXCYVOF1364-14-37 03:17:009.0[facility] YDVVYSEYWR4659-18-80 03:17:000.9[facility] RrcotaoPBMENYJKSP3393-43-09 03:17:003.6 [facility] MUXDWGA2891-67-88 03:17:652856Hhzhhwlu [facility]annCARD[facility]AC VQLNUWE4924-63-43 03:17:007.6[facility]AC EWFNDXD4440-81-56 03:17:00 0.04[facility]annCARD[facility]AC QWEFZRA7510-19-37 03:17:000.5[facility] LGGGUDFVDJ9007-92-68 03:17:0011.6[facility] FkhougnGPPZJXJLZG5311-13-72 03:17:00 3.49[facility] NfrdnxpPMJZOSGRKF1920-07-43 03:17:0010.4[facility]HE[facility]OLOG[facility] 2016-12-07 03:17:00 Test Item Value Reference Range Interpretation Comments MCH (test code = MCH) 29.7 pg 27.0-31.0 [facility] UptkjhbMKTOGJXAEW5547-80-05 03:17:0031.1[facility]annHE[facility]OLOGY 2016-12-07 03:17:0088.9[facility] SmwumxiCMZFBWRLDT1271-13-25 03:17:0033.4[facility] XcrwgamEFKXXGYPKJ8270-90-80 03:17:0014.3[facility] FzpajqiVOMXVFVGHB2175-08-15 03:17:57232Lkcphxwg ScmiyhkJNSOZRZNRP6266-61-23 03:17:008.2[facility] ASSENQFATH8143-75-63 03:17:0077.5[facility] LdmxnpiGEFRLMPBSR0961-72-23 03:17:00 0.4[facility] TemvwyfEJJGLAWARZ2444-34-10 03:17:000.1[facility]annHEMATOLOGY 2016-12-07 03:17:001.2[facility] FjvxgxsRLHJTIJMFX4223-58-62 03:17:008.1[facility] FnraqbrYAZJYWWGKY7432-79-71 03:17:009.6[facility] KaicaadQEFRVRICBJ9704-43-94 03:17:001.1[facility] NvddbewYHDDMIQXHJ4918-65-02 03:17:009.0[facility] TCUSVOBUIP5873-35-81 03:17:000.9[facility] UiqwobpVIYTTIOOCH8414-61-53 03:17:003.6 [facility] YGMKEYV2889-00-96 03:17:380891Mtcslrkq [facility]annCARDIAC BCCEGZZ4921-87-51 03:17:007.6[facility]annC[facility]AC BSVIBIE3154-44-85 03:17:00 0.04[facility]annC[facility]AC YOERRGT3146-30-32 03:17:000.5[facility] GEQRVDANKJ3713-60-46 03:17:0011.6[facility] GqjprtlJHKZWVFUTG4834-62-10 03:17:00 3.49[facility] TsbraccEUMGKXDKXH0396-35-99 03:17:0010.4[facility]annHEMATOLOGY 2016-12-07 03:17:00 Test Item Value Reference Range Interpretation Comments MCH (test code = MCH) 29.7 pg 27.0-31.0 [facility] NgshwtfYBHKOWLFRT5078-31-36 03:17:0031.1[facility]annHEMATOLOGY 2016-12-07 03:17:0088.9[facility] YsfqgqkFXPZMNWFTW4110-24-05 03:17:0033.4[facility] CasutyfFSEXEJWHTA6276-73-04 03:17:0014.3[facility] LezyuutVTBJWRUDBP8192-74-03 03:17:44070Hscpfhpa AqzchfkSEHYMIMBDT1088-20-74 03:17:008.2[facility] JEIAHQLJUT8072-24-15 03:17:0077.5[facility] LwgnmyyNSPAGSMRVE1522-86-06 03:17:00 0.4[facility] HyvpkfvRRVOFAYCIK5264-90-21 03:17:000.1[facility]annHEMATOLOGY 2016-12-07 03:17:001.2[facility] WvijkrjGPUMOXKUSH3863-68-94 03:17:008.1[facility] MxdxharSYDWIHLLVI5468-10-54 03:17:009.6[facility] GwgithaSLGAQBEQUX1793-24-93 03:17:001.1[facility] WhyhfisVLWIWSBNML2565-15-37 03:17:009.0[facility] OBQHZFKSUH0340-89-75 03:17:000.9[facility] TeukglpBCVBBXCQLN2187-88-87 03:17:003.6 [facility] AVXFBBI0558-44-20 05:11:39508Ozlkcbxh HermannCARDIAC EDLGGDA0235-54-60 05:11:44919Pxjlaxzz [facility]annCARDIAC OLZQWGL2154-13-34 05:11:00 0.02[facility]annCARDIAC AGBWMZC5036-87-56 05:11:002.0[facility] FWNDNJC2531-78-83 05:11:009.9[facility]annC[facility] WWYCWAA9519-25-36 05:11:00 661[facility]annC[facility]AC ALWIPXS0713-34-63 05:11:43387Gafowsxc [facility]annC[facility]AC TBTGPMB5071-83-53 05:11:000.02[facility]annC[facility]AC EFIGWMX0207-00-82 05:11:00 2.0[facility]annC[facility] AXSEGKH3090-37-71 05:11:009.9[facility] DAQBDJP0694-76-79 05:11:44334Qdzmltqc [facility]AC JXSDROP9208-89-56 05:11:00 494[facility]AC PQGSIFS2295-04-68 05:11:000.02[facility]annCARDIAC WGMWVQA8123-04-14 05:11:002.0[facility]annC[facility]AC ANZXNVZ5950-91-31 05:11:00 9.9[facility] ZFIMAJO2723-58-76 05:11:64042Mgdhgitf [facility]annCARDIAC OWGJMYV0895-70-21 05:11:35645Uukbhmvr [facility] MWZWFNB6524-07-61 05:11:00 0.02[facility]annC[facility] FQBIRNC2075-44-79 05:11:002.0[facility]annC[facility] KSCVLKZ2660-13-83 05:11:009.9[facility] FLBZSWH5147-48-66 05:11:00 661[facility] YKCHCFB3531-61-70 05:11:15508Vmdkjmgd [facility]annCARD[facility]AC WSUVEMU2450-48-27 05:11:000.02[facility]annC[facility]AC ECQYAAF2643-72-29 05:11:00 2.0[facility] OCIDTAZ5964-84-19 05:11:009.9[facility] IDBDNWL0497-25-18 05:11:27139Bkkhtzqf [facility]annCARDIAC PLXXCTI3076-65-89 05:11:00 494[facility] DXLDXKL6966-19-49 05:11:000.02[facility]annC[facility]AC NZNYZSB2201-39-84 05:11:002.0[facility] DTEBEJU8668-47-03 05:11:00 9.9[facility] LOLLKMO8771-01-83 05:11:00191Hqweicqq [facility]annC[facility]AC BUUUACZ3043-42-98 05:11:37321Speusjjv [facility]AC NWUDIJE4899-45-61 05:11:00 0.02[facility]annC[facility]AC CJIBFAQ0892-68-47 05:11:002.0[facility]annC[facility] ZRTWTNB4438-69-43 05:11:009.9[facility] AMBJPIK9848-24-70 05:11:00 661[facility]AC HFLXYAE5551-86-88 05:11:15988Xpcjiigk [facility] MACSFWV7770-75-71 05:11:000.02[facility] RVNRSFN0381-38-56 05:11:00 2.0[facility]annC[facility] ZCUMTLC4989-75-09 05:11:009.9[facility] IKHRXXK2655-83-57 05:11:83576Nlelwfza [facility] TMDLFNP1607-08-89 05:11:00 494[facility]AC FHNDJXW9720-78-63 05:11:000.02[facility]AC XIGRHSW2553-47-59 05:11:002.0[facility] GLLCINW0299-95-18 05:11:00 9.9[facility] JXLEJFG5993-48-45 20:12:000.02[facility] VEARNMS9853-89-82 20:12:009.0[facility] TOJFBEH7639-08-19 20:12:00 513[facility]AC QTIUOCZ7955-71-68 20:12:001.8[facility] HermannCHEM KBQYN2624-92-24 20:12:000.6[facility]annCHEM CZEUE2993-80-37 20:12:000.1 [facility]annCHEM NBTLH8258-54-96 20:12:003.9[facility]annCHEM PANEL 2016-11-09 20:12:0022[facility]annCHEM RLLDH7219-70-60 20:12:0023[facility]annCHEM MUBAY7287-67-19 20:12:0089[facility]annCHEM OGPJI0443-08-41 20:12:002.5[facility]annCHEM HBBVG3972-55-88 20:12:006.4[facility]annCHEM JUBNG9084-41-69 20:12:003.51[facility]annCHEM XQOAX1317-74-19 20:12:0016.0 [facility]CHE[facility] NPKSY2311-25-69 20:12:0017[facility]annCHEM PANEL 2016-11-09 20:12:46262Ziafwigz HermannCHEM FTTVN4153-69-15 20:12:0011[facility]CHE[facility] YTKWB6529-58-77 20:12:008.3[facility]annCHE[facility] HXICK8021-39-54 20:12:53007Odwmyyws HermannCHEM KBBHO4745-84-16 20:12:004.0[facility]annCHEM HWMOA2923-16-54 20:12:0039[facility]annCHE[facility] SVSTQ4639-62-48 20:12:0018 [facility]CHE[facility] GYRMY8603-23-00 20:12:0077[facility]annHEMATOLOGY 2016-11-09 20:12:008.9[facility] UxfweupMRYMDLCKPW4796-06-30 20:12:0014.9[facility] OnawenzKJCGKIQNRI4621-00-86 20:12:93089Bdxcefod XsfiofbKXEKLTBAEO6442-01-17 20:12:0034.0[facility] JysydhvBRKEFYIIUB3743-15-24 20:12:00 Test Item Value Reference Range Interpretation Comments MCH (test code = MCH) 30.3 pg 27.0-31.0 [facility] QixlvboLKMMQELIDO2549-02-94 20:12:0089.2[facility] HermannHEMATOLOGY 2016-11-09 20:12:0011.2[facility] ClmkckxILJWXQMZWK8365-44-52 20:12:0032.9[facility] QpzxdczCIWFPDITVL3359-91-20 20:12:009.1[facility] XjzkrykMVDODGOLZN2040-58-21 20:12:003.69[facility] QizuvokMTNDFJZXWX7919-42-73 20:12:002.6[facility] ZWJLQHGDIC7480-11-80 20:12:000.8[facility] TuiwvjwTMCHSXZPRM5719-39-24 20:12:001.2 [facility] BpsbfizJEPRIRHNUL7472-65-92 20:12:006.2[facility]annHEMATOLOGY 2016-11-09 20:12:000.2[facility] ChoyspwVHWXFWNCYZ6755-05-65 20:12:000.7[facility] TcvspmsNOILBFFVEA6425-69-82 20:12:008.7[facility] OqirwiyMRILLQJQDU7648-80-69 20:12:0068.2[facility] JjhovfkQCAENEXXET7496-56-48 20:12:0012.9[facility] UFROFCKJWX0765-20-49 20:12:007.6[facility] HermannCARDIAC CYWTFUA9373-43-03 20:12:000.02[facility]annCARDIAC LVHQVKX7725-78-73 20:12:009.0[facility]annCARDIAC DQQFRDJ6574-19-62 20:12:60112Hzunofjw HermannCARDIAC ENZYMES 2016-11-09 20:12:001.8[facility]annCHEM ULTYX7294-18-20 20:12:000.6[facility]annCHEM OCAHQ8025-97-99 20:12:000.1[facility]annCHEM XPIRN4982-24-83 20:12:003.9[facility]annCHEM SFNKN3389-40-39 20:12:0022[facility]annCHE[facility] NMOBL4399-35-07 20:12:0023[facility]annCHE[facility] KQMKB4006-24-55 20:12:0089 [facility]annCHE[facility] VCUPU6293-58-85 20:12:002.5[facility]annCHEM PANEL 2016-11-09 20:12:006.4[facility]annCHE[facility] ULWMX7780-05-49 20:12:003.51[facility]annCHEM IOFMG6906-94-50 20:12:0016.0[facility]annCHE[facility] DWWTV3905-24-93 20:12:0017[facility]annCHE[facility] RWUHP7738-46-61 20:12:38226Mxsdyljz HermannCHEM KIUCW0404-04-99 20:12:0011[facility]annCHE[facility] JHTIT3047-98-42 20:12:008.3 [facility]CHE[facility] NOAJT4812-51-11 20:12:21375Ptvethqf HermannCHEM PANEL 2016-11-09 20:12:004.0[facility]annCHEM GLAGT7199-00-97 20:12:0039[facility]annCHE[facility] DDZXC1175-62-52 20:12:0018[facility]annCHE[facility] FTIPP5330-35-39 20:12:0077[facility] OjtysjjKAJKBMRQDF5363-24-43 20:12:008.9[facility] FIRWADXGPD2748-15-57 20:12:0014.9[facility] CmuxxtfATCEGCXBII4806-35-05 20:12:00 215[facility] NftbhhtKLRUKBUGLS0495-24-30 20:12:0034.0[facility]annHEMATOLOGY 2016-11-09 20:12:00 Test Item Value Reference Range Interpretation Comments MCH (test code = MCH) 30.3 pg 27.0-31.0 [facility] BhohyhhXAGZUNKNMA6642-46-25 20:12:0089.2[facility]annHEMATOLOGY 2016-11-09 20:12:0011.2[facility] VkojjvvKQUJBBSWRX0529-79-97 20:12:0032.9[facility] NwhozznCKFYNSXCOF0590-89-37 20:12:009.1[facility] MuzqvwnBRLGAQBATM7136-94-89 20:12:003.69[facility] NihqvvxIAWKCRJWOS0646-10-73 20:12:002.6[facility] RYVTPSERVO3948-15-33 20:12:000.8[facility] SzsekxyZSJJEMBSCU4906-85-03 20:12:001.2 [facility] NqoxniiWBKYKTTDME7412-06-71 20:12:006.2[facility]annHEMATOLOGY 2016-11-09 20:12:000.2[facility] AxcsdeuTCWAWVBNXR4991-02-58 20:12:000.7[facility] NvcmdkrSFAQPYRNHM3671-71-17 20:12:008.7[facility] WtyutruJIPYICOINT0111-84-29 20:12:0068.2[facility] MqrvorqJOASXIATHU0063-39-73 20:12:0012.9[facility] IXZHZTMYMO1403-92-11 20:12:007.6[facility]annCARDIAC GCPFUZV0940-55-67 20:12:000.02[facility]annCARDIAC UVIDIPF9055-05-95 20:12:009.0[facility]annCARDIAC LBYRLTR6781-10-97 20:12:92381Psthusxk HermannCARDIAC ENZYMES 2016-11-09 20:12:001.8[facility]annCHEM OEPMT0670-95-37 20:12:000.6[facility]annCHEM AMTNK1902-14-48 20:12:000.1[facility]annCHEM MTBXK8389-09-56 20:12:003.9[facility]annCHEM JZUPT3158-60-98 20:12:0022[facility]annCHEM ETKLY9065-06-30 20:12:0023[facility]annCHEM XCDEY8563-98-25 20:12:0089 [facility]annCHE[facility] MNPGO2851-44-76 20:12:002.5[facility]annCHEM PANEL 2016-11-09 20:12:006.4[facility]annCHEM HYSXV7398-02-38 20:12:003.51[facility]annCHEM GLVYV3588-35-41 20:12:0016.0[facility]annCHEM CVMRV3147-57-27 20:12:0017[facility]annCHEM SECGH8984-84-40 20:12:36486Peyyisdk HermannCHEM TWTKA4053-03-59 20:12:0011[facility]annCHEM WNSYY4847-08-08 20:12:008.3 [facility]annCHE[facility] DREIO7585-01-92 20:12:95326Umhtyzis HermannCHEM PANEL 2016-11-09 20:12:004.0[facility]annCHEM ZJPUY5583-80-79 20:12:0039[facility]annCHEM FKTVN5020-64-31 20:12:0018[facility]annCHEM SIDWU0839-83-85 20:12:0077[facility] NobfbjuSUUTKQREQJ7649-68-38 20:12:008.9[facility] DYQAIVLXIT6540-83-69 20:12:0014.9[facility] WedecqeWKZTLOEZWB3587-50-85 20:12:00 215[facility] WdmrcxpJQBFEKXMXI7509-50-54 20:12:0034.0[facility]annHEMATOLOGY 2016-11-09 20:12:00 Test Item Value Reference Range Interpretation Comments MCH (test code = MCH) 30.3 pg 27.0-31.0 [facility] VrbjjlmWBGBCKFYEB6392-17-02 20:12:0089.2[facility]annHEMATOLOGY 2016-11-09 20:12:0011.2[facility] XgqozawEECHQOZZBJ2541-49-21 20:12:0032.9[facility] UjzrihvRODXYWCDHO6330-31-56 20:12:009.1[facility] GxcdkqpVLYIQXESYV4629-78-67 20:12:003.69[facility] XlidboaKWKHZASCIP7311-46-02 20:12:002.6[facility] HGSOZVRKUK5284-56-93 20:12:000.8[facility] VxjkecxWSDPXNILYK9065-18-40 20:12:001.2 [facility] XdchkyvUCZBOEBGIJ7690-11-14 20:12:006.2[facility]annHEMATOLOGY 2016-11-09 20:12:000.2[facility] IgrgqlhULBQHTZCMF0225-24-01 20:12:000.7[facility] VnmgedmGGUXSNCLVP4722-78-62 20:12:008.7[facility] EcvpwvgVHVVNUAPXU0983-09-89 20:12:0068.2[facility] VtxugppYDHXFAPAUK9438-11-37 20:12:0012.9[facility] VLHVWTXWVK3713-84-10 20:12:007.6[facility]annCARDIAC PKEEGBO5636-73-50 20:12:000.02[facility]annCARDIAC OGNXKMB4971-88-93 20:12:009.0[facility]annCARDIAC OLGAXSK9658-86-24 20:12:23279Cqkhpflr HermannCARDIAC ENZYMES 2016-11-09 20:12:001.8[facility]annCHEM HWFKA0879-72-19 20:12:000.6[facility]annCHEM MSDVA8349-15-81 20:12:000.1[facility]annCHEM TQCLB4526-36-89 20:12:003.9[facility]annCHEM KLSGK8844-99-16 20:12:0022[facility]annCHEM FHPHT9573-21-72 20:12:0023[facility]annCHEM VQIIX1881-51-54 20:12:0089 [facility]annCHE[facility] AUKHL8824-40-42 20:12:002.5[facility]annCHEM PANEL 2016-11-09 20:12:006.4[facility]annCHEM KHKQM9521-01-75 20:12:003.51[facility]annCHEM VYRVB9444-75-47 20:12:0016.0[facility]annCHEM HSFIG9343-70-70 20:12:0017[facility]annCHEM KXNRV2026-70-82 20:12:02649Zarwfbvc HermannCHEM CZSSX4963-36-85 20:12:0011[facility]annCHEM HYYZI4708-46-70 20:12:008.3 [facility]annCHE[facility] VKRAC1747-61-56 20:12:08001Hudixjad HermannCHEM PANEL 2016-11-09 20:12:004.0[facility]annCHEM UNZCZ9178-09-62 20:12:0039[facility]annCHEM SVAED9507-48-57 20:12:0018[facility]annCHEM IEKYA4597-32-88 20:12:0077[facility] QlsrckuYNCXNPGMNB5202-36-67 20:12:008.9[facility] DNARPWTUSV3626-96-27 20:12:0014.9[facility] ByfncatCZCUXKOIMN4404-41-37 20:12:00 215[facility] TjjebpuXUVRVKSQQO0010-06-26 20:12:0034.0[facility]annHEMATOLOGY 2016-11-09 20:12:00 Test Item Value Reference Range Interpretation Comments MCH (test code = MCH) 30.3 pg 27.0-31.0 [facility] GczmwalPMJBVPZDSW8014-51-36 20:12:0089.2[facility]annHEMATOLOGY 2016-11-09 20:12:0011.2[facility] DkxnsjgAOSNXBBGDU6549-45-08 20:12:0032.9[facility] NyymyjsLPOZHKQKJE9386-66-24 20:12:009.1[facility] BlakrmjZBHGXXGMXB4249-79-54 20:12:003.69[facility] PhbdqitDOYQTWZAQY6408-19-53 20:12:002.6[facility] FRKGSETYVM4197-47-22 20:12:000.8[facility] LedwvjdOFRXCAZMNL1510-00-72 20:12:001.2 [facility] DxhhvugJYLXUIURRV8946-40-82 20:12:006.2[facility]annHEMATOLOGY 2016-11-09 20:12:000.2[facility] FojtnedBKTTIRWNTI3995-52-93 20:12:000.7[facility] ZtiugbiQVQDJEPKFR5863-67-11 20:12:008.7[facility] EqsalrdNDJDHNZIKW9243-64-93 20:12:0068.2[facility] NdrzxzlEVCYBCTQKE2094-32-81 20:12:0012.9[facility] QTOQFYIDJQ7952-15-55 20:12:007.6[facility]annCARDIAC EUKKTOP8840-77-25 20:12:000.02[facility]annCARDIAC NTOSEFB4455-77-78 20:12:009.0[facility]annCARDIAC GKQCNDK9526-11-06 20:12:61181Cghrdzex HermannCARDIAC ENZYMES 2016-11-09 20:12:001.8[facility]annCHEM FILWD2669-30-48 20:12:000.6[facility]annCHEM SNTUC9628-58-79 20:12:000.1[facility]annCHEM AGIYZ8320-76-71 20:12:003.9[facility]annCHEM IIEOQ9649-63-41 20:12:0022[facility]annCHEM MIOPR5121-21-33 20:12:0023[facility]annCHEM QAJCX5877-97-57 20:12:0089 [facility]annCHE[facility] CLUCG3361-80-46 20:12:002.5[facility]annCHEM PANEL 2016-11-09 20:12:006.4[facility]annCHEM XZRSM9052-46-13 20:12:003.51[facility]annCHEM ZHKKU0759-07-81 20:12:0016.0[facility]annCHEM TWHPX0940-75-82 20:12:0017[facility]annCHEM CDBWJ3055-62-94 20:12:69909Hxatngcl HermannCHEM FZAEE5035-63-39 20:12:0011[facility]annCHEM YTJTV9766-57-47 20:12:008.3 [facility]CHE[facility] TJVDX1838-11-22 20:12:76544Sjoiaaba HermannCHEM PANEL 2016-11-09 20:12:004.0[facility]annCHEM LYTRQ1449-41-45 20:12:0039[facility]annCHEM IEBFQ3259-30-51 20:12:0018[facility]annCHEM EYOVP6973-11-83 20:12:0077[facility] OahmbrcCRIQQGBXFA3431-39-45 20:12:008.9[facility] YTKMKWZHIQ9381-31-65 20:12:0014.9[facility] RewerjyPKREMXJBAL3675-46-73 20:12:00 215[facility] QiwrdhbYFLLXGYIWC8329-24-85 20:12:0034.0[facility]annHEMATOLOGY 2016-11-09 20:12:00 Test Item Value Reference Range Interpretation Comments MCH (test code = MCH) 30.3 pg 27.0-31.0 [facility] PmrshloSOMBGTZDBZ8836-94-68 20:12:0089.2[facility] HermannHEMATOLOGY 2016-11-09 20:12:0011.2[facility] LjhixatRBZEQBWFMC2404-73-13 20:12:0032.9[facility] AlsdhloERGODFNFPT3194-15-91 20:12:009.1[facility] DmxqoazDPKSBUMKQW7117-94-20 20:12:003.69[facility] EinjexeQLAWJXSTEL4089-04-46 20:12:002.6[facility] QCKRBOULWQ9835-72-12 20:12:000.8[facility] DfgnlriMNURTATIBT4916-54-33 20:12:001.2 [facility] MlainwdVPSNMMSFPV9213-60-21 20:12:006.2[facility] HermannHEMATOLOGY 2016-11-09 20:12:000.2[facility] JvshmdaXPDWLOJNDZ7912-86-67 20:12:000.7[facility] RvywhzaZYNLNRXQRJ2122-04-48 20:12:008.7[facility] SgwdwxgXOIMBJFYHJ9090-87-97 20:12:0068.2[facility] ChbaksnGOYSTTBDPS8086-44-77 20:12:0012.9[facility] WCKTLXJOES7892-35-32 20:12:007.6[facility]annCARDIAC UJFKWXL8033-29-07 20:12:000.02[facility]annCARDIAC XTMXQWM7959-53-84 20:12:009.0[facility]annCARDIAC GKMHWOS4779-26-58 20:12:28026Rudzjahr HermannCARDIAC ENZYMES 2016-11-09 20:12:001.8[facility]annCHEM ZMPJQ7749-91-26 20:12:000.6[facility]annCHEM AISWJ4723-73-65 20:12:000.1[facility]annCHEM OKVXG5464-85-28 20:12:003.9[facility]annCHEM TYPFV3434-20-01 20:12:0022[facility]annCHEM NUMXK1565-95-51 20:12:0023[facility]annCHEM OOTSX9867-57-05 20:12:0089 [facility]annCHEM PREGG0206-93-77 20:12:002.5[facility]annCHEM PANEL 2016-11-09 20:12:006.4[facility]annCHEM VRQRH7694-65-09 20:12:003.51[facility]annCHEM NUFTO0953-36-94 20:12:0016.0[facility]annCHEM CMDGG8071-75-70 20:12:0017[facility]annCHEM CCBMJ9005-83-23 20:12:17115Yknqbhqf HermannCHEM ICXMN8917-73-51 20:12:0011[facility]annCHEM LVLBA4211-62-73 20:12:008.3 [facility]annCHE[facility] CBTOM7945-51-57 20:12:10533Lxuoervy HermannCHEM PANEL 2016-11-09 20:12:004.0[facility]annCHEM DGTRK9975-37-25 20:12:0039[facility]annCHEM PVVOU1191-08-01 20:12:0018[facility]annCHEM ZNFLB5385-05-26 20:12:0077[facility] BiitfllENEFQDNHSJ2536-31-48 20:12:008.9[facility] UDCMPMYKUT4130-14-73 20:12:0014.9[facility] SpyjypgGDCOEUXMMF8474-76-29 20:12:00 215[facility] DjgrrohQCJMDHRZSE9260-66-86 20:12:0034.0[facility]annHEMATOLOGY 2016-11-09 20:12:00 Test Item Value Reference Range Interpretation Comments MCH (test code = MCH) 30.3 pg 27.0-31.0 [facility] LutfbltXLALQJTFCS7673-24-78 20:12:0089.2[facility]annHEMATOLOGY 2016-11-09 20:12:0011.2[facility] IqmjqdyYYVNNSZPJQ5923-59-52 20:12:0032.9[facility] RjvqomxUPGOOLIZOE3827-12-52 20:12:009.1[facility] VqneqyvVQIOZIRLDW9904-79-00 20:12:003.69[facility] EsefgwaKKGUQUBXJW6117-74-06 20:12:002.6[facility] WLHODEKLFP6802-24-69 20:12:000.8[facility] YwamrhbFCRIEYZVDN4252-22-11 20:12:001.2 [facility] UywwxedLKKQODYKPL9859-54-43 20:12:006.2[facility]annHEMATOLOGY 2016-11-09 20:12:000.2[facility] PojcbxoDMPMQRSPJY6259-35-28 20:12:000.7[facility] KczyvluGYMUUGXLXB1842-23-10 20:12:008.7[facility] VznqtreXJIRLUHPTQ7512-27-10 20:12:0068.2[facility] IenvzrkLPGDECUJSP1994-47-04 20:12:0012.9[facility] JKMMBWLRUQ4186-35-87 20:12:007.6[facility]annCARDIAC VJUFIFF1386-04-45 20:12:000.02[facility]annCARDIAC DIZFZWY1254-45-19 20:12:009.0[facility]annCARDIAC HINOLVR0215-05-11 20:12:14310Ojoxmzwb HermannCARDIAC ENZYMES 2016-11-09 20:12:001.8[facility]annCHEM XOJJI1713-34-80 20:12:000.6[facility]annCHEM QLWVH2458-45-93 20:12:000.1[facility]annCHEM YPJDA5754-05-87 20:12:003.9[facility]annCHEM TKYDK6884-80-78 20:12:0022[facility]annCHEM QNGVM4511-60-51 20:12:0023[facility]annCHEM GUGKO7272-76-79 20:12:0089 [facility]annCHE[facility] FTJGO6181-70-39 20:12:002.5[facility]annCHEM PANEL 2016-11-09 20:12:006.4[facility]annCHEM RJMZA9073-32-76 20:12:003.51[facility]annCHEM IDAQG9574-39-52 20:12:0016.0[facility]annCHEM MFQIZ1464-16-52 20:12:0017[facility]annCHEM NUUAT6369-63-93 20:12:25328Klwcrccp HermannCHEM MYOWF0735-95-91 20:12:0011[facility]annCHEM VGRMP9922-29-82 20:12:008.3 [facility]annCHEM KHMZS8578-35-89 20:12:31556Ojuspdxb HermannCHEM PANEL 2016-11-09 20:12:004.0[facility]annCHEM VBNBW6755-61-02 20:12:0039[facility]annCHEM KGCYS5879-91-16 20:12:0018[facility]annCHEM IPSYV2271-49-04 20:12:0077[facility] XglpqdjHRPBCBNUFC1164-27-62 20:12:008.9[facility] RSAJYJABWP8241-99-25 20:12:0014.9[facility] UmszcgsYXULFJWROX7370-86-80 20:12:00 215[facility] CivsgluKCORUBKYOL8801-25-38 20:12:0034.0[facility]annHEMATOLOGY 2016-11-09 20:12:00 Test Item Value Reference Range Interpretation Comments MCH (test code = MCH) 30.3 pg 27.0-31.0 [facility] GxzvkozYROTAOXOIX0422-98-41 20:12:0089.2[facility] HermannHEMATOLOGY 2016-11-09 20:12:0011.2[facility] AijbasyUIFFMXNHCO7712-32-95 20:12:0032.9[facility] QdwjqbsVVLXEMMDAG0267-87-19 20:12:009.1[facility] LxygxgxNKXOUYNTVZ8021-90-21 20:12:003.69[facility] MubjrlmMAIPJHFKHB2551-12-41 20:12:002.6[facility] QFUQALLKFH5901-54-09 20:12:000.8[facility] JfgyjwfVWPBALDDLG7834-88-33 20:12:001.2 [facility] ToiauedVTFTECDNTO7714-48-86 20:12:006.2[facility] HermannHEMATOLOGY 2016-11-09 20:12:000.2[facility] SqshruuONVFLQWXRH5199-59-27 20:12:000.7[facility] XbkcdelYXHDWDLPDZ7774-29-53 20:12:008.7[facility] KargtxjOVZOIBTUNB1909-90-11 20:12:0068.2[facility] HdbzyfuZHKUFHXGTA6794-46-55 20:12:0012.9[facility] WYMWLNJLHZ6951-97-91 20:12:007.6[facility] HermannCARDIAC KZAJYYK0292-42-97 20:12:000.02[facility]annCARDIAC WWGNIAX2850-14-15 20:12:009.0[facility]annCARDIAC RQDAZSL8303-67-50 20:12:01325Wciuxxkc HermannCARDIAC ENZYMES 2016-11-09 20:12:001.8[facility] HermannCHEM GVAIL5620-31-21 20:12:000.6[facility] HermannCHEM AJLFO0577-50-98 20:12:000.1[facility] HermannCHEM JTFTS7853-79-04 20:12:003.9[facility] HermannCHEM YPNWX5527-81-01 20:12:0022[facility] HermannCHEM BEQKD7386-92-82 20:12:0023[facility]annCHEM TKWPU2350-97-41 20:12:0089 [facility]annCHEM LONTK9403-74-67 20:12:002.5[facility] HermannCHEM PANEL 2016-11-09 20:12:006.4[facility] HermannCHEM KJLTB2916-73-64 20:12:003.51[facility] HermannCHEM BCWPY0961-52-42 20:12:0016.0[facility] HermannCHEM WTODS8370-38-59 20:12:0017[facility]annCHEM JUBNL9762-63-92 20:12:16353Zqsvmuyj HermannCHEM FDQPQ1987-72-36 20:12:0011[facility] HermannCHEM KYRRJ6983-07-46 20:12:008.3 [facility]annCHEM XPMOH3371-01-69 20:12:48396Jnzzxtsb HermannCHEM PANEL 2016-11-09 20:12:004.0[facility] HermannCHEM UBRUP4694-87-77 20:12:0039[facility] HermannCHEM AIXGD9190-12-11 20:12:0018[facility]annCHEM EJBIQ6484-80-44 20:12:0077[facility] WcrzfuqPBDEJHOSNY9077-94-18 20:12:008.9[facility] ZFOEDCVSZG0849-39-84 20:12:0014.9[facility] HxudovwPPJVIPRRDY5963-59-22 20:12:00 215[facility] YrkqayhTSLNMIGNML0962-25-68 20:12:0034.0[facility] HermannHEMATOLOGY 2016-11-09 20:12:00 Test Item Value Reference Range Interpretation Comments MCH (test code = MCH) 30.3 pg 27.0-31.0 [facility] EvbbyclWKEIEDPJEK9743-12-65 20:12:0089.2[facility] HermannHEMATOLOGY 2016-11-09 20:12:0011.2[facility] SacqegmTYXODNDBTH2705-57-92 20:12:0032.9[facility] AvtnqtxSOVDJUHGYO6559-46-60 20:12:009.1[facility] KlrvpiuMZAKUFIEUZ0919-59-87 20:12:003.69[facility] HarbvjtGAJIITXBFX5410-31-78 20:12:002.6[facility] CADECGXCFJ3984-43-85 20:12:000.8[facility] EmfraqvYHVGWYPEXM3703-10-69 20:12:001.2 [facility] ClvhzdnZAIKPVTITJ8496-53-48 20:12:006.2[facility] HermannHEMATOLOGY 2016-11-09 20:12:000.2[facility] QgrvnmzCVTMHPSEEB9207-04-13 20:12:000.7[facility] CzsqcscJUHKUSXLXO2978-58-21 20:12:008.7[facility] KhhiampNLVELMNSFP5322-23-82 20:12:0068.2[facility] NxzgvudURFYGMYMHR5960-64-95 20:12:0012.9[facility] NXIWYTOXKS4656-92-62 20:12:007.6[facility] HermannCARDIAC ESUGJVD6806-32-82 20:12:000.02[facility] HermannCARDIAC OQWOEYV6978-05-09 20:12:009.0[facility] HermannCARDIAC VANBPKG7297-05-06 20:12:12163Kitjtsio HermannCARDIAC ENZYMES 2016-11-09 20:12:001.8[facility] HermannCHEM WPKOX8612-01-20 20:12:000.6[facility] HermannCHEM SESFY2770-12-39 20:12:000.1[facility] HermannCHEM KVUXI6187-68-69 20:12:003.9[facility]annCHEM ISYVI2468-19-06 20:12:0022[facility]annCHEM KZUWX3034-85-55 20:12:0023[facility]annCHEM JFLJY4587-97-79 20:12:0089 [facility]annCHEM KVKCH8263-99-05 20:12:002.5[facility]annCHEM PANEL 2016-11-09 20:12:006.4[facility]annCHEM BDESP0219-78-00 20:12:003.51[facility]annCHEM FRJDD8635-31-47 20:12:0016.0[facility]annCHEM KJXBX0340-69-64 20:12:0017[facility]annCHEM OAXNG3565-37-88 20:12:46061Sehkgxwi HermannCHEM USYBU7438-10-64 20:12:0011[facility]annCHEM TBVJB4166-90-38 20:12:008.3 [facility]annCHE[facility] YNJMJ4588-26-25 20:12:80504Vcvanaqe HermannCHEM PANEL 2016-11-09 20:12:004.0[facility]annCHEM GJVJQ3376-32-38 20:12:0039[facility]annCHEM RJFPP0188-30-41 20:12:0018[facility]annCHEM CVAIE7607-11-96 20:12:0077[facility] DjzrutjQWZZDQXDQF4896-21-57 20:12:008.9[facility] RYZUPKZXZS2612-31-20 20:12:0014.9[facility] SjxauhcQRMBRJZBXQ0248-24-36 20:12:00 215[facility] VjvoeqyUQEHQAHICE6250-44-99 20:12:0034.0[facility]annHEMATOLOGY 2016-11-09 20:12:00 Test Item Value Reference Range Interpretation Comments MCH (test code = MCH) 30.3 pg 27.0-31.0 [facility] LpbcmdvWLAUTULGMK4457-55-34 20:12:0089.2[facility]annHEMATOLOGY 2016-11-09 20:12:0011.2[facility] MftksftNTEVSJHZKR1543-67-80 20:12:0032.9[facility] YkevraoOPUIJLVFKA1866-18-95 20:12:009.1[facility] XoqhggjELHMOQTULU9953-91-64 20:12:003.69[facility] TzardtxHZHNDGVCRO5327-97-23 20:12:002.6[facility] ZAPXMOCQQJ2282-67-84 20:12:000.8[facility] MklkuxtTVSCMRUFGR3152-40-09 20:12:001.2 [facility] UtnfmutALPQYANVSI8792-38-54 20:12:006.2[facility]annHEMATOLOGY 2016-11-09 20:12:000.2[facility] MethqnhDRFFHYVITH6792-96-80 20:12:000.7[facility] WtomxgfYDINMEDBZC5759-56-06 20:12:008.7[facility] XplfrlwRMQJEIBQOV3500-79-28 20:12:0068.2[facility] JioyvrnELJWKOSQKE4204-63-77 20:12:0012.9[facility] DHVDJRAOLR1161-43-26 20:12:007.6[facility]
[2021-07-16 21:29] LABS: Absolute Lymphocytes (CBC) 0.4 K/uL (0.7-4.9); Basophils % 0.7 % (0-1.3); Hematocrit 30.8 % (39.6-49.0); Lymphocytes % 4.9 % (15.3-44.8); MPV 8.1 fL (7.6-11.3); RBC Red Blood Cell Count 2.96 M/uL (4.33-5.43)
--- NOTE | 2021-07-16 21:32 | ER ---
Nurse's Notes [facility] Name: Refugio Sylvester Age: 66 yrs Sex: Male : 1955 Arrival Date: 07/16/2021 Time: 19:20 Bed 5 Private MD: Benito Meyers E Diagnosis: Osteomyelitis, unspecified-Right great toe Presentation: 07/16 19:37 Chief complaint: Patient states: he is having pain to his right big toe x 2 weeks has bb seen geothermal technician but it is getting worse. Coronavirus screen: At this time, the client does not indicate any symptoms associated with coronavirus-19. Ebola Screen: No symptoms or risks identified at this time. Initial Sepsis Screen: Does the patient meet any 2 criteria? No. Patient's initial sepsis screen is negative. Does the patient have a suspected source of infection? No. Patient's initial sepsis screen is negative. Risk Assessment: Do you want to hurt yourself or someone else? Patient reports no desire to harm self or others. Onset of symptoms was July 02, 2021. 19:37 Method Of Arrival: Ambulatory 19:37 Acuity: JOSH 3 bb 07/17 00:41 Note Redness noted to top right foot and toes. Open area noted to right great toe. df1 Triage Assessment: 07/16 19:39 General: Appears in no apparent distress. uncomfortable, Behavior is calm, cooperative. bb Pain: Complains of pain in right foot. Musculoskeletal: right big toe with erythema, swelling, cut nail. Historical: - Allergies: 19:39 No Known Allergies; bb - PMHx: 19:39 ESRD; HTN; DM; CAD; bb - PSHx: 19:39 CABG; bb - Immunization history:: Adult Immunizations up to date, Client reports receiving the 2nd dose of the Covid vaccine. - Social history:: Smoking status: Patient denies any tobacco usage or history of. Patient/guardian denies using alcohol, street drugs. Screenin:15 Abuse screen: Denies threats or abuse. Nutritional screening: No deficits noted. df1 Tuberculosis screening: No symptoms or risk factors identified. Fall Risk None identified. Assessment: 07/17 00:40 General: Appears in no apparent distress. Behavior is calm, cooperative. Pain: df1 Complains of pain in dorsum of right foot Pain does not radiate. Pain at worst was 10 out of 10 on a pain scale. Neuro: No deficits noted. Cardiovascular: No deficits noted. Respiratory: No deficits noted. GI: No deficits noted. : No deficits noted. EENT: No deficits noted. Derm: Wound noted dorsum of right foot. Vital Signs: 07/16 19:37 BP 132 / 61; Pulse 75; Resp 18 S; Temp 97.8(O); Pulse Ox 99% on R/A; Weight 106.59 kg bb (R); Height 5 ft. 9 in. (175.26 cm) (R); Pain 10/10; 21:28 BP 111 / 65; Pulse 76; Resp 18; Pulse Ox 99% on R/A; Pain 10/10; df1 23:02 BP 108 / 59; Pulse 75; Resp 18; Pulse Ox 96% on R/A; df1 07/17 00:38 BP 115 / 75; Pulse 74; Resp 18; Pulse Ox 100% on R/A; Pain 0/10; df1 07/16 19:37 Body Mass Index 34.70 (106.59 kg, 175.26 cm) ED Course: 07/16 19:20 Patient arrived in ED. mr 19:20 Benito Meyers MD is Private Physician. mr 19:39 Triage completed. bb 19:39 Arm band placed on Patient placed in an exam room, on a stretcher, on pulse oximetry. bb Family accompanied patient. 20:15 Emily Foley is Primary Nurse. df1 20:15 Patient has correct armband on for positive identification. Placed in gown. Bed in low df1 position. Call light in reach. Side rails up X 1. Pulse ox on. NIBP on. 20:15 No provider procedures requiring assistance completed. df1 20:22 Raman Gonzalez MD is Attending Physician. kdr 21:28 Blood Culture Adult (2) Sent. df1 21:28 Foot Right 3 View XRAY Sent. df1 21:28 Chem 7 Sent. df1 21:28 CBC with Diff Sent. df1 21:28 Inserted saline lock: 18 gauge in right antecubital area, using aseptic technique. df1 21:29 Foot Right 3 View XRAY In Process Unspecified. EDMS 21:31 Vj Wilder MD is Hospitalizing Provider. kdr 07/17 00:48 Patient admitted, IV remains in place. df1 Administered Medications: 07/16 21:53 Drug: Rocephin - (cefTRIAXone) 1 grams Route: IVPB; Infused Over: 30 mins; Site: right df1 antecubital; 23:01 Follow up: IV Status: Completed infusion; IV Intake: 50ml df1 21:54 Drug: Zofran (Ondansetron) 4 mg Route: IVP; Site: right antecubital; df1 23:01 Follow up: Response: No adverse reaction df1 21:54 Drug: morphine 4 mg Route: IVP; Site: right antecubital; df1 23:01 Follow up: Response: Pain is decreased df1 23:02 Drug: vancoMYCIN 1.5 grams Route: IVPB; Rate: calculated rate; Site: right antecubital; df1 07/17 00:47 Follow up: IV Status: Completed infusion; IV Intake: 500ml df1 Intake: 07/16 23:01 IV: 50ml; Total: 50ml. df1 07/17 00:47 IV: 500ml; Total: 550ml. df1 Outcome: 07/16 21:31 Decision to Hospitalize by Provider. kdr 07/17 00:48 Admitted to Med/surg accompanied by nurse. df1 Condition: stable Instructed on the need for admit. 01:02 Patient left the ED. mw2 Signatures: Dispatcher [employer] EDMS Raman Gonzalez MD MD kdr Rivera, Mary mr Shannan Galeas RN RN Naa Marie 2 Emily Foley df1 Corrections: (The following items were deleted from the chart) 07/16 19:40 19:39 PMHx: Broken Ribs; pan perla
--- NOTE | 2021-07-16 21:32 | EDPHYS ---
Physician Documentation [facility] Name: Refugio Sylvester Age: 66 yrs Sex: Male : 1955 Arrival Date: 07/16/2021 Time: 19:20 Bed 5 Private MD: Benito Meyers E ED Physician Raman Gonzalez HPI: 07/16 22:07 This 66 yrs old Male presents to ER via Ambulatory with complaints of Feet kdr Swelling. 22:07 The patient presents with decreased range of motion, pain, that is acute, swelling, kdr tenderness. The complaints affect the right foot. Context: The problem was sustained at home, resulted from an unknown cause, Mechanism of Injury: the patient can fully bear weight, the patient is able to ambulate. Onset: The symptoms/episode began/occurred 2 week(s) ago. Modifying factors: The symptoms are alleviated by nothing. Associated signs and symptoms: The patient has no apparent associated signs or symptoms. Severity of symptoms: At their worst the symptoms were mild, moderate, just prior to arrival, in the emergency department the symptoms are unchanged. The patient has not recently seen a physician. Patient is a diabetic who has been under the care of a import clerk for the last 2 weeks for a right great toe infection. Over the past week the pain has become increasingly severe on the bottom of the foot and in the toe. There now appears to be some early gangrenous tissue at the tip of the toe involving the nail and the soft tissue around the phalanx. Historical: - Allergies: 19:39 No Known Allergies; bb - PMHx: 19:39 ESRD; HTN; DM; CAD; bb - PSHx: 19:39 CABG; bb - Immunization history:: Adult Immunizations up to date, Client reports receiving the 2nd dose of the Covid vaccine. - Social history:: Smoking status: Patient denies any tobacco usage or history of. Patient/guardian denies using alcohol, street drugs. ROS: 22:07 MS/extremity: Positive for decreased range of motion, ecchymosis, erythema, pain, kdr swelling, tenderness, of the plantar aspect of right first toe, ball of right foot, arch of right foot, heel of right foot, right first toe and Right first toenail. 22:07 Constitutional: Negative for fever, chills, and weight loss, Eyes: Negative for injury, pain, redness, and discharge. Exam: 22:07 Constitutional: This is a well developed, well nourished patient who is awake, alert, kdr and in no acute distress. Head/Face: Normocephalic, atraumatic. 22:07 Musculoskeletal/extremity: Extremities: grossly normal except: noted in the plantar aspect of right first toe, ball of right foot, arch of right foot, heel of right foot, right first toe and Right first toenail: Vital Signs: 19:37 BP 132 / 61; Pulse 75; Resp 18 S; Temp 97.8(O); Pulse Ox 99% on R/A; Weight 106.59 kg bb (R); Height 5 ft. 9 in. (175.26 cm) (R); Pain 10/10; 21:28 BP 111 / 65; Pulse 76; Resp 18; Pulse Ox 99% on R/A; Pain 10/10; df1 23:02 BP 108 / 59; Pulse 75; Resp 18; Pulse Ox 96% on R/A; df1 07/17 00:38 BP 115 / 75; Pulse 74; Resp 18; Pulse Ox 100% on R/A; Pain 0/10; df1 07/16 19:37 Body Mass Index 34.70 (106.59 kg, 175.26 cm) bb MDM: 07/16 21:31 Patient medically screened. kdr 22:07 Data reviewed: vital signs, nurses notes, lab test result(s), radiologic studies. kdr Counseling: I had a detailed discussion with the patient and/or guardian regarding: the historical points, exam findings, and any diagnostic results supporting the discharge/admit diagnosis, lab results, radiology results, the need for further work-up and treatment in the hospital. 07/16 20:46 Order name: CBC with Diff kdr 07/16 20:46 Order name: Chem 7 kdr 07/16 20:46 Order name: Foot Right 3 View XRAY kdr 07/16 20:46 Order name: Blood Culture Adult (2) kdr 07/16 21:25 Order name: SARS-COV-2 RT PCR EDMS 07/16 22:56 Order name: CONS Physician Consult; Complete Time: 00:49 EDMS Administered Medications: 21:53 Drug: Rocephin - (cefTRIAXone) 1 grams Route: IVPB; Infused Over: 30 mins; Site: right df1 antecubital; 23:01 Follow up: IV Status: Completed infusion; IV Intake: 50ml df1 21:54 Drug: Zofran (Ondansetron) 4 mg Route: IVP; Site: right antecubital; df1 23:01 Follow up: Response: No adverse reaction df1 21:54 Drug: morphine 4 mg Route: IVP; Site: right antecubital; df1 23:01 Follow up: Response: Pain is decreased df1 23:02 Drug: vancoMYCIN 1.5 grams Route: IVPB; Rate: calculated rate; Site: right antecubital; df1 07/17 00:47 Follow up: IV Status: Completed infusion; IV Intake: 500ml df1 Disposition Summary: 07/16/21 21:31 Hospitalization Ordered Hospitalization Status: Inpatient Admission kdr Provider: Vj Wilder Location: Telemetry/MedSurg (Inpatient) kdr Condition: Fair kdr Problem: an ongoing problem kdr Symptoms: are unchanged kdr Bed/Room Type: Standard kdr Room Assignment: 220(07/17/21 00:36) eb Diagnosis - Osteomyelitis, unspecified - Right great toe kdr Forms: - Medication Reconciliation Form kdr - SBAR form kdr Signatures: Dispatcher [employer] Raman Payne MD MD kdr Shannan Galeas RN RN Gwen Farias RN RN eb1 Emily Foley [facility] Corrections: (The following items were deleted from the chart) 07/16 19:40 19:39 PMHx: Broken Ribs; pan perla 21:25 20:51 CORONAVIRUS+MR.LAB.BRZ ordered. EDMS EDMS 07/17 00:29 07/16 21:31 kdr eb1 07/17 00:36 00:29 215 eb eb
[2021-07-16] MEDS ORDERED: CEFTRIAXONE 1000 MG/VIAL ONE (21:36)
[2021-07-16] MEDS ORDERED: ONDANSETRON 4 MG/2 ML VIAL ONE (21:36)
[2021-07-16] MEDS ORDERED: MORPHINE 4 MG/ML SYR ONE (21:36)
[2021-07-16] MEDS ORDERED: NA CHLORIDE 0.9% 50 ML ONE (21:36)
[2021-07-16] MEDS ORDERED: NA CHLORIDE 0.9% 500 ML ONE (22:49)
[2021-07-16] MEDS ORDERED: VANCOMYCIN 1 GM/VIAL ONE (22:49)
[2021-07-17] MEDS ORDERED: Pharmacy Consult 1 EA XX PRN (01:17)
[2021-07-17] MEDS ORDERED: ONDANSETRON 4 MG/2 ML VIAL IV PRN (01:17)
[2021-07-17] MEDS ORDERED: ACETAMINOPHEN 500 MG TAB PO PRN (01:17)
[2021-07-17 01:20] VITALS: BMI 34.7
--- NOTE | 2021-07-17 01:23 | P.HP ---
Certification for Inpatient Patient admitted to: Inpatient With expected LOS: >2 Midnights Patient will require the following post-hospital care: None Practitioner: I am a practitioner with admitting privileges, knowledge of patient current condition, hospital course, and medical plan of care. Services: Services provided to patient in accordance with Admission requirements found in Title 42 Section 412.3 of the Code of Federal Regulations Patient History Date of Service: 07/16/21 Primary Care Provider: Meyers Reason for admission: osteomyelitis History of Present Illness: Mr. Sylvester is a 66 yo M with CAD, HTN, DM, ESRD on HD TTS who presents with two weeks of pain in his right big toe and hell. He saw a local marketing senior recruiter last week who did an Xray and then dressed is wound. He changed the dressing at home and was scheduled to return to the clinic this Wednesday, but he had no relief in his pain. He denies drainage from the toe. Foot is discolored, and toe is showing signs of gangrene. Pain is worse with walking, relieved with rest and pain medication. Denies fever, nausea, vomiting. He received dialysis [facility] in ti of the holiday, with next session scheduled for Wednesday. He receives dialysis at a clinic in [place]. BUN 28 Cr 7.27 GFR 8 Glu 148 Allergies Unable to Assess Allergy (Unverified 07/16/21 23:17) - Past Medical/Surgical History Diabetic: Yes -: ESRD on HD TTS -: DM -: HTN -: CAD -: CABG 2015 -: dialysis port - Family History Family History: Reviewed- Non-Contributory - Social History Smoking Status: Never smoker Alcohol use: No CD- Drugs: No Caffeine use: No Place of Residence: Home Review of Systems 10-point ROS is otherwise unremarkable General: Unremarkable Eyes: Unremarkable ENT: Unremarkable Respiratory: Unremarkable Cardiovascular: Unremarkable Gastrointestinal: Unremarkable Genitourinary: Unremarkable Musculoskeletal: Foot Pain Integumentary: Bruising Neurological: Unremarkable Lymphatics: Unremarkable Physical Examination - Vital Signs Temperature: 97.8 F Blood Pressure: 115/75 Pulse: 74 Respirations: 18 - Physical Exam General: Alert, In no apparent distress HEENT: Atraumatic, PERRLA, Mucous membr. moist/pink, EOMI, Sclerae nonicteric Neck: Supple, 2+ carotid pulse no bruit, No LAD, Without JVD or thyroid abnormality Respiratory: Clear to auscultation bilaterally, Normal air movement Cardiovascular: Regular rate/rhythm, Normal S1 S2 Gastrointestinal: Normal bowel sounds, No tenderness Musculoskeletal: Tenderness Integumentary: Skin breakdown, Tenderness/swelling, Cyanosis (discoloration around nail bed, evidence of bleeding, sensation still intact ), Other (discoloration ) Neurological: Normal speech, Normal strength at 5/5 x4 extr, Normal tone, Sensation intact, Normal affect Lymphatics: No axilla or inguinal lymphadenopathy - Studies Laboratory Data (last 24 hrs) 07/16/21 21:10: Sodium 139, Potassium 4.0, BUN 28 H, Creatinine 7.27 H*, Glucose 148 H 07/16/21 21:10: WBC 9.10, Hgb 10.5 L, Hct 30.8 L, Plt Count 180 Assessment and Plan - Problems (Diagnosis) (1) Osteomyelitis Current Visit: Yes Status: Acute Qualifiers: Osteomyelitis type: unspecified type Osteomyelitis location: foot Laterality: right Qualified Code(s): M86.9 - Osteomyelitis, unspecified (2) Diabetes Current Visit: Yes Status: Chronic Qualifiers: Diabetes mellitus type: type 2 Diabetes mellitus rat exterminator insulin use: unspecified alf insulin use status Diabetes mellitus complication status: with kidney complications Diabetes mellitus complication detail: with chronic kidney disease Chronic kidney disease stage: on chronic dialysis Qualified Code(s): E11.22 - Type 2 diabetes mellitus with diabetic chronic kidney disease; N18.6 - End stage renal disease; Z99.2 - Dependence on renal dialysis (3) ESRD (end stage renal disease) on dialysis Current Visit: Yes Status: Chronic (4) HTN (hypertension) Current Visit: Yes Status: Chronic Qualifiers: Hypertension type: primary hypertension Qualified Code(s): I10 - Essential (primary) hypertension (5) CAD (coronary artery disease) Current Visit: Yes Status: Chronic Qualifiers: Coronary Disease-Associated Artery/Lesion type: bypass graft [place] vs. transplanted heart: [place] heart Associated angina: without angina Qualified Code(s): I25.810 - Atherosclerosis of coronary artery bypass graft(s) without angina pectoris - Plan surgery consulted, nephrology consulted, ID consulted continue IV antibiotics anemia workup pending sliding scale insulin and accuchecks, A1c pending continue pain management as needed reconcile and continue home medications DVT ppx Discharge Plan: Home - Advance Directives Does patient have a Living Will: No Does patient have a Durable POA for Healthcare: No - Code Status/Comfort Care Code Status Assessed: Yes (full code ) Critical Care: No Time Spent Managing Pts Care (In Minutes): 70
[2021-07-17 03:52] LABS: Absolute Lymphocytes (CBC) 0.7 K/uL (0.7-4.9); Hematocrit 28.4 % (39.6-49.0); Lymphocytes % 9.2 % (15.3-44.8); MPV 8.5 fL (7.6-11.3); RBC Red Blood Cell Count 2.72 M/uL (4.33-5.43)
[2021-07-17 04:38] LABS: Albumin 2.8 g/dL (3.4-5.0); Bilirubin Total 0.4 mg/dL (0.2-1.0); C-Reactive Protein 88.2 mg/L (<3.00); Ferritin 1528.6 ng/mL (26-388); Magnesium 2.2 mg/dL (1.8-2.4); Phosphorus 4.4 mg/dL (2.5-4.9); Potassium 3.9 mmol/L (3.5-5.1); Protein, Total 6.8 g/dL (6.4-8.2); Thyroid Stimulating Hormone 0.794 uIU/mL (0.360-3.740)
--- NOTE | 2021-07-17 06:35 | P.CNS ---
Date of Consult: 07/17/21 Reason for Consult: ESRD Requesting Physician: Vj Wilder Primary Care Provider: Luigi Chief Complaint: osteomyelitis History of Present Illness: 66M w/ PMHx of ESRD on HD qTTS in [place], received HD Mon & Wed this wk, Htn, DM, & CAD, who p/w 2 wks of R big toe pain. On presentation, his R foot has dusky discoloration. He is admitted for possible R 1st toe osteomyelitis. Allergies No Known Allergies Allergy (Unverified 07/17/21 01:45) Home Medications: Amlodipine [Norvasc*] 10 mg PO DAILY 07/17/21 Apixaban [Eliquis] 5 mg PO DAILY 07/17/21 Clopidogrel Bisulfate [Plavix] 75 mg PO DAILY 07/17/21 Gabapentin 300 mg PO TID 07/17/21 Hydralazine HCl 50 mg PO TID 07/17/21 Losartan Potassium 50 mg PO BID 07/17/21 Pravastatin [Pravachol] 40 mg PO BEDTIME 07/17/21 Sevelamer Carbonate 2,400 mg PO AC 07/17/21 - Past Medical/Surgical History Diabetic: Yes -: ESRD on HD TTS -: DM -: HTN -: CAD -: CABG 2016 -: dialysis port - Social History Alcohol use: No CD- Drugs: No Caffeine use: No Place of Residence: Home Review of Systems General: Weakness Eyes: Unremarkable ENT: Unremarkable Respiratory: Unremarkable Cardiovascular: Unremarkable Gastrointestinal: Unremarkable Genitourinary: Unremarkable Musculoskeletal: Atrophy, Other (R 1st toe wound) Integumentary: Other (R 1st toe wound) Neurological: Weakness Lymphatics: Unremarkable Physical Examination Temp Pulse Resp BP Pulse Ox 97.6 F 82 16 135/70 92 07/17/21 04:00 07/17/21 04:00 07/17/21 04:00 07/17/21 04:00 07/17/21 04:00 General: In no apparent distress HEENT: Atraumatic, Normocephalic Neck: Supple, JVD not distended Respiratory: Other (Symmetric chest expansion) Cardiovascular: No rubs, No murmurs Gastrointestinal: Soft and benign, Non-distended Musculoskeletal: Other (+R foot wound) Integumentary: Erythema (R foot) Neurological: Normal speech, Normal tone Lymphatics: No axilla or inguinal lymphadenopathy Urinary: Other (No bladder distention) External genitalia: Deferred Rectal: Deferred Laboratory Data (last 24 hrs) 07/16/21 21:10: Sodium 139, Potassium 4.0, BUN 28 H, Creatinine 7.27 H*, Glucose 148 H 07/16/21 21:10: WBC 9.10, Hgb 10.5 L, Hct 30.8 L, Plt Count 180 Conclusions/Impression: # ESRD on outpt HD qTTS in [facility] HD access: LFA AVF Received HD Mon & Wed this wk No acute indication for HD today Next HD Sat Renal vit po daily Renal + DM diet Monitor renal panel # R foot/1st toe wound infection, ? osteomyelitis Per other services # Htn Cont current regimen # Anemia Monitor H/H # Renal osteodystrophy Monitor Ca & Phos # DM2 Mngt per other services
[2021-07-17] MEDS: MORPHINE 2 MG/ML SYR IV PRN ×2 (06:50→14:20)
[2021-07-17] MEDS: INSULIN -REGULAR HUMAN 50 UNIT/0.5 ML ML SQ SCH ×4 (07:30→20:35)
[2021-07-17] MEDS ORDERED: VANCOMYCIN 750 MG in NA CHLORIDE 0.9% 150 ML IVPB ONE (08:00)
[2021-07-17] MEDS: APIXABAN 5 MG TABLET PO SCH ×2 (09:45→19:22)
--- NOTE | 2021-07-17 11:04 | RAD REPORT ---
EXAM DESCRIPTION: RAD - Foot Right 3 View - 07/16/2021 9:29 pm CLINICAL HISTORY: Right foot pain FINDINGS: No fracture or dislocation is seen. Vascular calcifications seen. Moderate plantar calcaneal spur
--- NOTE | 2021-07-17 12:24 | P.PN ---
Date of Service: 07/17/21 Subjective: No acute events since admission. Continues with some pain in his right great toe with some radiation up his foot/lower leg, morphine helps No other complaints ROS: 10 point ROS as noted above, otherwise negative Physical exam GEN: Alert, oriented, NAD HEENT: Normal conjunctiva, sclera anicteric CV: Regular rate and rhythm, no edema Pulm: Nonlabored respiration on room air ABD: Soft, nontender Integumentary: Black/dark discolored skin at tip of first toe on the right foot, tender along toe and plantar aspect of foot. Some mild swelling Neuro: Normal speech, normal affect Problem List Right first toe ulceration, likely arterial, concern for osteomyelitis NIDDM2 ESRD on HD HTN CAD s/p CABG surgery consulted, nephrology consulted, ID consulted continue IV antibiotics -vancomycin and Rocephin for empiric coverage for suspected osteomyelitis anemia workup pending sliding scale insulin and accuchecks, A1c pending continue pain management as needed, added tramadol Continue home medications as appropriate X-ray with no definitive signs of osteomyelitis MRI ordered to evaluate for osteomyelitis Check arterial Doppler to evaluate blood flow in lower extremities. History of stent somewhere in the right leg arterial system 2 years ago DVT ppx Dispo: Anticipate DC home in 2-3 days Time Spent Managing Pts Care (In Minutes): 35
--- NOTE | 2021-07-17 13:05 | P.CNS ---
Date of Consult: 07/17/21 Primary Care Provider: Luigi Chief Complaint: osteomyelitis History of Present Illness: The patient is a 66-year-old male with a past medical history of CAD status post triple bypass and it 2019, diabetes mellitus type 2, ESRD on HD TTS who presented to the emergency department secondary to right great hallux pain swelling and skin discoloration. Patient states that he 1st noticed his symptoms about 2 weeks ago and was seen by podiatry you who ordered an x-ray and wrapped his foot. The patient change the dressing at home and was scheduled to return to the clinic this Wednesday however had no relief of his pain and as such presented to the emergency room. On exam, foot shows enma discoloration, on distal portion of great hallux there is a black and concerning for necrosis. X- ray negative for osteomyelitis or acute fracture. Of note patient does have peripheral vascular disease, states that 2 years ago he had stents placed in his right leg. Patient currently denies nausea/vomiting/diarrhea/shortness breath/chest pain. Allergies No Known Allergies Allergy (Unverified 07/17/21 01:45) Home Medications: Amlodipine [Norvasc*] 10 mg PO DAILY 07/17/21 Apixaban [Eliquis] 5 mg PO DAILY 07/17/21 Clopidogrel Bisulfate [Plavix] 75 mg PO DAILY 07/17/21 Gabapentin 300 mg PO TID 07/17/21 Hydralazine HCl 50 mg PO TID 07/17/21 Losartan Potassium 50 mg PO BID 07/17/21 Pravastatin [Pravachol] 40 mg PO BEDTIME 07/17/21 Sevelamer Carbonate 2,400 mg PO AC 07/17/21 - Past Medical/Surgical History Diabetic: Yes -: ESRD on HD TTS -: DM -: HTN -: CAD -: CABG 2015 -: dialysis port - Social History Alcohol use: No CD- Drugs: No Caffeine use: No Place of Residence: Home Review of Systems 10-point ROS is otherwise unremarkable Physical Examination Temp Pulse Resp BP Pulse Ox 98.9 F 63 18 119/55 L 93 07/17/21 12:00 07/17/21 12:00 07/17/21 12:00 07/17/21 12:00 07/17/21 12:00 General: Alert, In no apparent distress, Oriented x3 HEENT: Atraumatic, Normocephalic Neck: Supple, 2+ carotid pulse no bruit Respiratory: Clear to auscultation bilaterally, Normal air movement Cardiovascular: No edema, Normal pulses Gastrointestinal: Normal bowel sounds, Soft and benign Integumentary: Arterial ulcer (To right great hallux) Laboratory Data (last 24 hrs) 07/16/21 21:10: Sodium 139, Potassium 4.0, BUN 28 H, Creatinine 7.27 H*, Glucose 148 H 07/16/21 21:10: WBC 9.10, Hgb 10.5 L, Hct 30.8 L, Plt Count 180 Conclusions/Impression: Antibiotics: Vancomycin Start: 07/16 Rocephin start: 07/17 Assessment/plan Right great hallux arterial ulcer with possible osteomyelitis X-ray negative, MRI pending. Continue empiric antibiotic coverage with vancomycin and Rocephin. Continue to trend inflammatory markers CRP: 88.2, ESR: 75. Wound care: [place] area with Betadine Q Wednesday and keep leg elevated. ESRD on HD Avoid nephrotoxic agents, give vancomycin with dialysis Diabetes mellitus type 2 Continue strict glucose monitoring for proper wound healing and infection control Anemia Continue to monitor H&H Medical management per primary team Plan of care discussed with Dr. biggs Thank you for consultation
[2021-07-17] MEDS: GABAPENTIN 300 MG CAP PO SCH ×2 (14:19→20:09)
[2021-07-17] MEDS ORDERED: INFLUENZA VACCINE (for 6+ mo) 0.5 ML DOSE IMVAC ONE (16:00)
--- NOTE | 2021-07-17 19:51 | RAD REPORT ---
EXAM DESCRIPTION: [place] Single View07/17/2021 7:04 pm CLINICAL HISTORY: Shortness of breath COMPARISON: September 2020 FINDINGS: Left base is hazy. Right lung appears clear of acute infiltrate. Heart is mildly enlarged. Postsurgical changes involve the chest IMPRESSION: Left base is hazy. This could be secondary to an infiltrate, pleural effusion or overlyi ng soft tissue. PA and lateral chest series recommended
[2021-07-17] MEDS: TRAMADOL HCL 50 MG TAB PO PRN (20:08)
[2021-07-17] MEDS: ATORVASTATIN 10 MG TAB PO SCH (20:09)
[2021-07-17] MEDS ORDERED: NA CHLORIDE 0.9% 50 ML ONE (20:45)
[2021-07-17] MEDS ORDERED: CEFTRIAXONE 1000 MG/VIAL ONE (20:47)
[2021-07-17] MEDS: CEFTRIAXONE 1,000 MG in NA CHLORIDE 0.9% 50 ML IVPB SCH (20:53)
[2021-07-17] MEDS ORDERED: HOME MED 1 EA UNK (Pravastatin [Pravachol*] 40 MG/TAB Tab) PO SCH (21:00)
[2021-07-18 04:44] LABS: Absolute Lymphocytes (CBC) 0.6 K/uL (0.7-4.9); Basophils % 0.8 % (0-1.3); Hematocrit 30.2 % (39.6-49.0); Lymphocytes % 6.2 % (15.3-44.8); MPV 8.2 fL (7.6-11.3)
[2021-07-18 05:09] LABS: Bilirubin Total 0.6 mg/dL (0.2-1.0); Magnesium 2.3 mg/dL (1.8-2.4); Phosphorus 4.8 mg/dL (2.5-4.9); Potassium 4.6 mmol/L (3.5-5.1); Protein, Total 7.3 g/dL (6.4-8.2)
--- NOTE | 2021-07-18 06:06 | P.PN ---
Subjective Date of Service: 07/18/21 Primary Care Provider: Meyers Chief Complaint: osteomyelitis Subjective: No new changes Physical Examination - Vital Signs Temperature: 99.0 F Blood Pressure: 116/61 Pulse: 79 Respirations: 20 Pulse Ox (%): 92 - Physical Exam General: In no apparent distress HEENT: Atraumatic, Normocephalic Neck: Supple Respiratory: Other (Symmetric chest expansion) Cardiovascular: No rubs, No murmurs Gastrointestinal: Soft and benign, Non-distended Musculoskeletal: No clubbing Integumentary: No warmth Neurological: Normal speech, Normal tone Urinary: Other (No bladder distention) External genitalia: Deferred Rectal: Deferred Assessment And Plan - Plan # ESRD on outpt HD qTTS in [facility] HD access: LFA AVF Received HD Mon & Wed this wk Next HD tomorrow Renal vit po daily Renal + DM diet Monitor renal panel # R foot/1st toe wound infection, ? osteomyelitis Per other services # Htn Cont current regimen # Anemia H/H at goal, monitor # Renal osteodystrophy Monitor Ca & Phos # DM2 Mngt per other services
--- NOTE | 2021-07-18 06:34 | P.PN ---
Date of Service: 07/18/21 Subjective: feeling better today noted to have mild hypoxia yesterday at rest, denies any history of issues reports cough <1 day, nonproductive no cough overnight / this morning. breathing more comfortably CXR with questionable area of haziness ROS: 10 point ROS as noted above, otherwise negative Physical exam GEN: Alert, oriented, NAD HEENT: Normal conjunctiva, sclera anicteric CV: Regular rate and rhythm, no edema Pulm: Nonlabored respiration on room air, clear to auscultation bilaterally, mild diminished breath sounds at bases ABD: Soft, nontender Integumentary: Black/dark discolored skin at tip of first toe on the right foot, tender along toe and plantar aspect of foot. Some mild swelling Neuro: Normal speech, normal affect Problem List Right first toe ulceration, likely arterial, concern for osteomyelitis NIDDM2 ESRD on HD HTN CAD s/p CABG continue IV antibiotics -vancomycin and Rocephin for empiric coverage for suspected osteomyelitis. ID consulted MRI to be done today, xray without any acute findings of bone possibly arterial ulceration, arterial dopplers ordered general surgery consulted, may need debridement, possible amputation sliding scale insulin and accuchecks, continue pain management as needed, tramadol Continue home medications as appropriate Check arterial Doppler to evaluate blood flow in lower extremities. History of stent somewhere in the right leg arterial system 2 years ago DVT ppx will obtain PA/lateral CXR to further evaluate the haziness noted on CXR yesterday, patient no longer with cough. possible mild pneumonia vs pulm edema. will be up for dialysis in next day or 2. nephrology consulted Dispo: Anticipate DC home in 2-3 days Time Spent Managing Pts Care (In Minutes): 35
[2021-07-18] MEDS: INSULIN -REGULAR HUMAN 50 UNIT/0.5 ML ML SQ SCH ×4 (07:30→21:00)
[2021-07-18] MEDS ORDERED: NA CHLORIDE 0.9% 50 ML ONE (08:39)
[2021-07-18] MEDS: CEFTRIAXONE 1,000 MG in NA CHLORIDE 0.9% 50 ML IVPB SCH ×2 (09:00→10:00)
[2021-07-18] MEDS: GABAPENTIN 300 MG CAP PO SCH ×3 (09:27→20:50)
[2021-07-18] MEDS: APIXABAN 5 MG TABLET PO SCH ×2 (09:27→20:50)
[2021-07-18] MEDS: CLOPIDOGREL 75 MG TABLET PO SCH (09:27)
[2021-07-18] MEDS: MORPHINE 2 MG/ML SYR IV PRN (09:35)
--- NOTE | 2021-07-18 10:00 | RAD REPORT ---
EXAM DESCRIPTION: Moy Pa And Lat (2 Views)07/18/2021 8:48 am CLINICAL HISTORY: Cough COMPARISON: July 17, 2021 FINDINGS: Mild bilateral pulmonary opacities. Heart is mildly enlarged. Postsurgical changes involv e the chest Callus formation about a left rib. IMPRESSION: Mild bilateral pulmonary opacities may represent mild pulmonary edema
--- NOTE | 2021-07-18 10:34 | P.CNS ---
Date of Consult: 07/18/21 Reason for Consult: Hypoxemia Primary Care Provider: Meyers Chief Complaint: osteomyelitis History of Present Illness: Patient is 66 years of age metabolic syndrome hemodialysis. With infection of his left toe still continues to complain of pain he was a little hypoxic apparently had a sleep study done 2 months ago was unable to wear CPAP machine has never smoked Allergies No Known Allergies Allergy (Unverified 07/17/21 01:45) Home Medications: Amlodipine [Norvasc*] 10 mg PO DAILY 07/17/21 Apixaban [Eliquis] 5 mg PO DAILY 07/17/21 Clopidogrel Bisulfate [Plavix] 75 mg PO DAILY 07/17/21 Gabapentin 300 mg PO TID 07/17/21 Hydralazine HCl 50 mg PO TID 07/17/21 Losartan Potassium 50 mg PO BID 07/17/21 Pravastatin [Pravachol] 40 mg PO BEDTIME 07/17/21 Sevelamer Carbonate 2,400 mg PO AC 07/17/21 - Past Medical/Surgical History Diabetic: Yes -: ESRD on HD TTS -: DM -: HTN -: CAD -: CABG 2016 -: dialysis port - Social History Alcohol use: No CD- Drugs: No Caffeine use: No Place of Residence: Home Review of Systems Respiratory: Shortness of Breath Musculoskeletal: As per HPI Physical Examination Temp Pulse Resp BP Pulse Ox 98.3 F 82 20 119/58 L 94 07/18/21 08:00 07/18/21 08:00 07/18/21 08:00 07/18/21 08:00 07/18/21 08:00 General: Alert, Oriented x3, Mild distress HEENT: Atraumatic Neck: Supple Respiratory: Clear to auscultation bilaterally Cardiovascular: No edema, Regular rate/rhythm Gastrointestinal: Normal bowel sounds, Soft and benign - Problems (1) Hypoxemia Current Visit: Yes Status: Acute Plan: Patient is 62 patient is 66 years of age metabolic syndrome hemodialysis admitted with left toe pain patient has a mild mild microcytic anemia probably has mild probably has mild volume overload chest x-ray shows cardiomegaly interstitial changes history of sleep apnea refused to wear a BiPAP machine currently on antibiotics patient does not smoke
--- NOTE | 2021-07-18 11:18 | CON ---
Date of Consultation: 07/17/2021 Reason For Consultation: Gangrene, right great toe. History Of Present Illness: The patient is a 66-year-old gentleman who says that he has had increasi ng redness and pain in his right great toe after he tried to trim his toenail approximately 2 weeks a go. He did see Dr. Frederick for his chest x-ray, however, the pain was getting worse, so he came to [facility] emergency room. He is a dialysis patient with multiple medical problems, dialyzes in [place]. He jameson s no sore throat, runny nose, cough, headaches, or dizziness. No chest pain. No fever. He does occ asionally have chills. Review of Systems: Otherwise unremarkable. Past Medical History: End-stage renal disease, diabetes, hypertension, coronary artery disease, CABG in 2016, AV fistula and hemodialysis access ports. He did have a stent placed in his right leg for peripheral vascular disease a couple of years ago. Allergies: NO ALLERGIES. Social History: The patient does not smoke or drink alcohol. Family History: Noncontributory. Physical Examination: Vital Signs: Stable. He is afebrile. He is awake, alert, and oriented x3. Head and Neck: Cranial nerves 2 through 12 are grossly within normal limits. No neck masses. No JV D. Throat clear. Neck is supple. Chest: Clear. Heart: S1, S2. Abdomen: Soft. Extremities: Diminished dorsalis pedis and posterior tibial pulses. There is necrotic tissue at the tip of the right great toe with redness and edema. The redness is extending on the medial part of t he foot up to the mid leg consistent with cellulitis. There is no abscess. There is no purulence th at is visible. Imaging: His foot x-ray done shows no fracture or dislocation. Vascular calcifications are seen. M oderate plantar calcaneal spur. No evidence of osteo. Laboratory Data: Reviewed. White count is 9.4, there is a left shift however. Sedimentation rate i s 75. His chemistry is significant for elevated BUN and creatinine as expected. C-reactive protein is high as well. Assessment: A 66-year-old gentleman with multiple medical problems with cellulitis and gangrene of r ight great toe with probable severe peripheral vascular disease, possible osteomyelitis. Recommendations: Continue broad-spectrum antibiotics currently. There is some wrinkling of the skin indicating slight improvement in the infection. His pain is a little bit better as well. We will a wait the results of the MRI and the arterial Doppler to make further recommendations. Should he have osteo, he would need 6 weeks IV antibiotics and if he has correctable vascular disease, then he woul d need intervention to help any amputation that may be needed in the future. At this time, it looks like he probably needs the toe amputated, but we will await all the results of the studies before wilfredo ing that recommendation. We will follow this patient while in the hospital. Some of this workup can be done as an outpatient and the plan of care was discussed in detail with Dr. Wilder and the patient can continue to get IV antibiotics during dialysis. /MODL Voice ID: [id number] Report ID: [id number]
--- NOTE | 2021-07-18 11:56 | PN ---
Subjective: The patient is lying in bed. No new acute event. Chart reviewed. Denies any headache, nausea, vomiting, chest pain, abdominal pain, constipation, or diarrhea. Objective: Vital Signs: Temperature 98, pulse 82, respiration 18, blood pressure 119/58. Lungs: Clear to auscultation. Heart: S1, S2. Regular. Abdomen: Soft, nontender. Bowel sounds present. Extremities: Right foot wound noted with purplish discoloration of the big toe and minimal gangrenou s changes at the tip of the toe. Laboratory Data: Shows WBC 9.4, hemoglobin is 10.3, platelets 168. Chemistry shows sodium 136, pota ssium 4.6, chloride 98, bicarb 26, BUN 49, creatinine 10, glucose 189. Albumin is 3. Micro data; blood cultures negative for 24 hours. MRI of the foot is pending. Chest x-ray shows mild bilateral pulmonary opacities, mild pulmonary henry ma. Assessment And Plan: 1.Right foot gangrenous changes to the big toe with possible osteomyelitis. Pending MRI results. C ontinue empiric antibiotic. We will recommend vancomycin and cefepime with dialysis. 2.End-stage renal disease. 3.Protein-calorie malnourishment. 4.Anemia of chronic disease. 5.Diabetes mellitus. 6.Diabetic neuropathy. Continue current treatment. No other recommendation at this time. NF/MODL Voice ID: [id number] Report ID: [id number]
--- NOTE | 2021-07-18 12:57 | RAD REPORT ---
EXAM DESCRIPTION: MRIFoot Right Wo Cont07/18/2021 8:45 am CLINICAL HISTORY: Right foot pain and swelling COMPARISON: none TECHNIQUE: Axial, sagittal and coronal magnetic resonance imaging of the right foot was obtained. FINDINGS: Abnormal signal involves most of the first distal phalanx compatible with osteomyelitis. No additional significant abnormal signal within the bones. Soft tissue abscess is not visualized. Edema within the subcutaneous tissues IMPRESSION: Osteomyelitis first distal phalanx
--- NOTE | 2021-07-18 13:58 | RAD REPORT ---
EXAM DESCRIPTION: US - Lower Extremity Artery Uni Ltd - 07/18/2021 1:44 pm CLINICAL HISTORY: pain/peripheral vascular disease/foot ulcer COMPARISON: None FINDINGS: The right common femoral and proximal/mid superficial femoral artery demonstrates biphasic waveforms. Distal right superficial femoral arterial waveform is monophasic and diminished in amplitude. The popliteal, posterior tibial and dorsalis pedis arteries demonstrate monophasic waveforms IMPRESSION: Distal right superficial femoral arterial waveform is monophasic and diminished in amplitude. This griffiths ggests a significant stenosis is probable
[2021-07-18] MEDS: TRAMADOL HCL 50 MG TAB PO PRN (20:53)
[2021-07-18] MEDS: ATORVASTATIN 10 MG TAB PO SCH (21:15)
[2021-07-19] MEDS: TRAMADOL HCL 50 MG TAB PO PRN ×2 (04:12→22:01)
--- NOTE | 2021-07-19 06:14 | P.PN ---
Subjective Date of Service: 07/19/21 Primary Care Provider: Meyers Chief Complaint: osteomyelitis Subjective: Other (Received HD today) Physical Examination - Vital Signs Temperature: 98.1 F Blood Pressure: 137/60 Pulse: 87 Respirations: 18 Pulse Ox (%): 94 - Physical Exam General: In no apparent distress HEENT: Atraumatic, Normocephalic Neck: Supple Respiratory: Clear to auscultation bilaterally Cardiovascular: No rubs, No murmurs Gastrointestinal: Soft and benign, Non-distended Musculoskeletal: No clubbing, Other (+R foot wound dressing) Neurological: Normal speech, Normal tone Urinary: Other (No bladder distention) Assessment And Plan - Plan # ESRD on outpt HD qTTS in [place] Received HD today HD access: LFA AVF Renal vit po daily Renal + DM diet Monitor renal panel # R foot/1st toe wound infection, ? osteomyelitis Per other services # Htn Cont current regimen # Anemia H/H at goal, monitor # Renal osteodystrophy Monitor Ca & Phos # DM2 Mngt per other services
--- NOTE | 2021-07-19 06:45 | P.PN ---
Date of Service: 07/19/21 Subjective: Improving, feels his foot is less swollen and less painful Still with redness, reports part of his nail fell off in the shower yesterday Feels slightly more short of breath, mild distention Last BM this morning ROS: 10 point ROS as noted above, otherwise negative Physical exam GEN: Alert, oriented, NAD HEENT: Normal conjunctiva, sclera anicteric CV: Regular rate and rhythm, trace bilateral edema to ankles, right > left Pulm: Nonlabored respirations on 2 L nasal cannula, diminished breath sounds at bases bilaterally, slight crackle at left base ABD: Soft, nontender Integumentary: Black/dark discolored skin at tip of first toe on the right foot, tender along toe and plantar aspect of foot. Some mild swelling Neuro: Normal speech, normal affect Problem List Right first toe ulceration / dry gangrene, with osteomyelitis NIDDM2 ESRD on HD HTN CAD s/p CABG continue IV antibiotics -vancomycin and Rocephin for empiric coverage for for osteomyelitis. ID consulted MRI consistent with osteomyelitis of first toe Arterial Doppler with likely significant stenosis of the superficial femoral artery General surgery was consulted, and recommended antibiotics and follow-up with vascular surgery Discussed with ID, discussed with patient, patient would prefer to go to LTAC where he can receive hyperbaric oxygen treatment, antibiotics, dialysis, and vascular surgery consult Continue home medications Patient to have dialysis today Suspect some slight volume overload from IV fluids from antibiotics Dispo: Anticipate DC to LTAC in 2-3 days Time Spent Managing Pts Care (In Minutes): 35
[2021-07-19] MEDS: INSULIN -REGULAR HUMAN 50 UNIT/0.5 ML ML SQ SCH ×4 (07:30→21:55)
[2021-07-19] MEDS: VANCOMYCIN 2 GM in NA CHLORIDE 0.9% 500 ML IVPB SCH (09:00)
[2021-07-19 09:44] LABS: Absolute Lymphocytes (CBC) 0.4 K/uL (0.7-4.9); Basophils % 0.7 % (0-1.3); Hematocrit 28.5 % (39.6-49.0); Lymphocytes % 3.9 % (15.3-44.8); MPV 8.6 fL (7.6-11.3); RBC Red Blood Cell Count 2.74 M/uL (4.33-5.43)
[2021-07-19 09:54] LABS: Magnesium 2.4 mg/dL (1.8-2.4); Phosphorus 5.9 mg/dL (2.5-4.9)
[2021-07-19] MEDS ORDERED: NA CHLORIDE 0.9% 50 ML ONE (10:02)
[2021-07-19] MEDS ORDERED: CEFTRIAXONE 1000 MG/VIAL ONE (10:03)
[2021-07-19 10:04] LABS: Albumin 2.8 g/dL (3.4-5.0); Bilirubin Total 0.7 mg/dL (0.2-1.0); Potassium 4.8 mmol/L (3.5-5.1); Protein, Total 7.4 g/dL (6.4-8.2)
[2021-07-19 10:09] LABS: Blood Morphology Comment NOT SEEN (NOT SEEN); Platelet Estimate ADEQ; White Blood Cell Scan OK (OK)
[2021-07-19] MEDS: GABAPENTIN 300 MG CAP PO SCH ×3 (10:09→21:56)
[2021-07-19] MEDS: CLOPIDOGREL 75 MG TABLET PO SCH (10:09)
[2021-07-19] MEDS: APIXABAN 5 MG TABLET PO SCH ×2 (10:09→21:56)
[2021-07-19] MEDS: CEFTRIAXONE 1,000 MG in NA CHLORIDE 0.9% 50 ML IVPB SCH (10:09)
--- NOTE | 2021-07-19 10:54 | PN ---
Date of Progress Note: 07/19/2021 Subjective: The patient is awake, alert, feels better. Vital stable, afebrile. Redness on his righ t leg is improving. Arterial Doppler shows significant disease, most likely stenosis of high and MRI reveals osteomyelitis of the distal part of the first toe on the right side. Assessment: Osteomyelitis and severe peripheral vascular disease. Recommendations: The patient will need 6 weeks IV antibiotics. He needs angiogram and intervention to address the blockages in his right leg to see if we can improve the blood flow and I discussed the case in detail with Dr. Wilder. We will try the either get our farm service consultant to evaluate or transfer to [place] where they have interventional vascular service that can help this patient. The patient m ay also benefit from hyperbaric wound care as ordered and upon discharge, he can [facility]. THAIS/RENETTA Voice ID: [id number] Report ID: [id number]
[2021-07-19] MEDS: ATORVASTATIN 10 MG TAB PO SCH (21:56)
[2021-07-20 04:00] LABS: Absolute Lymphocytes (CBC) 0.6 K/uL (0.7-4.9); Basophils % 0.7 % (0-1.3); Hematocrit 26.4 % (39.6-49.0); Lymphocytes % 6.3 % (15.3-44.8); MPV 8.1 fL (7.6-11.3); RBC Red Blood Cell Count 2.54 M/uL (4.33-5.43)
[2021-07-20 04:34] LABS: Albumin 2.7 g/dL (3.4-5.0); Bilirubin Total 0.7 mg/dL (0.2-1.0); Protein, Total 7.4 g/dL (6.4-8.2)
--- NOTE | 2021-07-20 06:23 | P.PN ---
Subjective Date of Service: 07/21/21 Primary Care Provider: Meyers Chief Complaint: osteomyelitis Subjective: Other (C/o mild SOB today.) Physical Examination - Vital Signs Temperature: 98.1 F Blood Pressure: 137/60 Pulse: 87 Respirations: 18 Pulse Ox (%): 94 - Physical Exam General: Other (Appears as his stated age.) HEENT: Atraumatic, Normocephalic Neck: Supple, JVD not distended Respiratory: Crackles/rales, Other (Symmetric chest expansion) Cardiovascular: No rubs, No murmurs Gastrointestinal: Soft and benign, Non-distended Musculoskeletal: No clubbing, Other (+wound dressing on R foot) Neurological: Normal speech, Normal tone Urinary: Other (No bladder distention) Assessment And Plan - Plan # ESRD on outpt HD qTTS [place] Received HD yesterday PUF tomorrow 2 hrs, 3L off Next HD Tue HD access: LFA AVF Renal vit po daily Renal + DM diet Monitor renal panel # R foot/1st toe wound infection, ? osteomyelitis Per other services # Htn Cont current regimen # Anemia H/H at goal, monitor # Renal osteodystrophy Monitor Ca & Phos # DM2 Mngt per other services # Dispo Dc plan to LTAC ongoing
--- NOTE | 2021-07-20 06:41 | P.PN ---
Date of Service: 07/20/21 Subjective: no acute events overnight. feeling better after dialysis, breathing more comfortably pain improving (in foot), swelling improved ROS: 10 point ROS as noted above, otherwise negative Physical exam GEN: Alert, oriented, NAD HEENT: Normal conjunctiva, sclera anicteric CV: Regular rate and rhythm, trace bilateral edema to ankles, right > left Pulm: Nonlabored respirations on 2 L nasal cannula, diminished breath sounds at bases bilaterally ABD: Soft, nontender Integumentary: Black/dark discolored skin at tip of first toe on the right foot, tender along toe and plantar aspect of foot Neuro: Normal speech, normal affect Problem List Right first toe ulceration / dry gangrene, with osteomyelitis NIDDM2 ESRD on HD HTN CAD s/p CABG continue IV antibiotics -vancomycin and Rocephin for empiric coverage for for osteomyelitis. ID consulted MRI consistent with osteomyelitis of first toe Arterial Doppler with likely significant stenosis of the superficial femoral artery General surgery was consulted, and recommended antibiotics and follow-up with vascular surgery, patient will need improved arterial blood supply to foot for healing Discussed with ID and patient, would prefer to go to LTAC where he can receive hyperbaric oxygen treatment, antibiotics, dialysis, and vascular surgery consult Continue home medications -antihypertensives has been on hold, has remained normotensive, lownormal Dialysis yesterday, breathing improved afterwards VTE: Home Eliquis Code: Full Dispo: Anticipate DC to LTAC once we receive authorization/acceptance Time Spent Managing Pts Care (In Minutes): 35
[2021-07-20] MEDS: TRAMADOL HCL 50 MG TAB PO PRN ×2 (07:15→19:26)
[2021-07-20] MEDS: INSULIN -REGULAR HUMAN 50 UNIT/0.5 ML ML SQ SCH ×4 (07:29→20:49)
[2021-07-20] MEDS ORDERED: CEFTRIAXONE 1000 MG/VIAL ONE (09:09)
[2021-07-20] MEDS: APIXABAN 5 MG TABLET PO SCH ×2 (09:14→20:50)
[2021-07-20] MEDS: CEFTRIAXONE 1,000 MG in NA CHLORIDE 0.9% 50 ML IVPB SCH (09:14)
[2021-07-20] MEDS: GABAPENTIN 300 MG CAP PO SCH ×3 (09:14→20:50)
[2021-07-20] MEDS: CLOPIDOGREL 75 MG TABLET PO SCH (09:15)
--- NOTE | 2021-07-20 11:47 | RAD REPORT ---
EXAM DESCRIPTION: RAD - Chest Single View - 07/20/2021 9:38 am CLINICAL HISTORY: hypoxia, eval pulm edema / effusions Chest pain. COMPARISON: Chest Pa And Lat (2 Views) dated 07/18/2021; Chest Single View dated 07/17/2021; Chest S jimmy View dated 10/08/2020 FINDINGS: Portable technique limits examination quality. Extensive bilateral pulmonary opacities have moderately worsened since preceding study. The heart is moderately enlarged. Sternotomy wires are present. IMPRESSION: Moderate worsening in lung aeration since comparative study.
[2021-07-20] MEDS: ATORVASTATIN 10 MG TAB PO SCH (20:50)
[2021-07-21 05:36] LABS: MPV 8.4 fL (7.6-11.3); RBC Red Blood Cell Count 2.58 M/uL (4.33-5.43)
[2021-07-21 05:56] LABS: Albumin 2.6 g/dL (3.4-5.0); Magnesium 2.6 mg/dL (1.8-2.4); Potassium 4.2 mmol/L (3.5-5.1)
--- NOTE | 2021-07-21 06:15 | P.PN ---
Date of Service: 07/21/21 Subjective: Continues with improvement, afebrile Pain improving ROS: 10 point ROS as noted above, otherwise negative Physical exam GEN: Alert, oriented, NAD HEENT: Normal conjunctiva, sclera anicteric CV: Regular rate and rhythm, trace bilateral edema to ankles, right > left Pulm: Nonlabored respirations on 3 L nasal cannula, diminished breath sounds at bases bilaterally ABD: Soft, nontender Integumentary: Black/dark discolored skin at tip of first toe on the right foot, tender along toe and plantar aspect of foot Neuro: Normal speech, normal affect Problem List Right first toe ulceration / dry gangrene, with osteomyelitis Acute hypoxemic respiratory failure secondary to volume overload in setting of ESRD NIDDM2 ESRD on HD HTN CAD s/p CABG Continue IV antibiotics for empiric coverage for osteomyelitis, ID consulted MRI consistent with osteomyelitis of first toe Arterial Doppler with likely significant stenosis of the superficial femoral artery General surgery was consulted, and recommended antibiotics and follow-up with vascular surgery, patient will need improved arterial blood supply to foot for healing Discussed with ID and patient, would prefer to go to LTAC where he can receive h yperbaric oxygen treatment, antibiotics, dialysis, and vascular surgery consult Continue home medications -antihypertensives on hold, has remained normotensive, lownormal Dialysis yesterday, breathing improved afterwards Discussed with nephrology, patient to have dialysis again today, chest x-ray yesterday with increasing pulmonary edema VTE: Home Eliquis Code: Full Dispo: Anticipate DC to LTAC once we receive authorization/acceptance [id number] completed earlier today, awaiting final decision. Despite requiring all of the above, and an additional day of dialysis, the insurance physician reviewing the case stated that the patient may be more appropriate for a lower level of care However, I am unsure of a facility with lower level care that could provide hyperbaric oxygen treatment, vascular surgery consultation and possible procedure, as needed/un-scheduled dialysis Time Spent Managing Pts Care (In Minutes): 35
[2021-07-21] MEDS: INSULIN -REGULAR HUMAN 50 UNIT/0.5 ML ML SQ SCH ×4 (07:30→19:24)
[2021-07-21] MEDS: GABAPENTIN 300 MG CAP PO SCH ×3 (08:57→20:45)
[2021-07-21] MEDS: CEFTRIAXONE 1,000 MG in NA CHLORIDE 0.9% 50 ML IVPB SCH (08:57)
[2021-07-21] MEDS: APIXABAN 5 MG TABLET PO SCH ×2 (08:57→20:45)
[2021-07-21] MEDS: CLOPIDOGREL 75 MG TABLET PO SCH (08:57)
[2021-07-21] MEDS: VANCOMYCIN 2 GM in NA CHLORIDE 0.9% 500 ML IVPB SCH (10:07)
[2021-07-21] MEDS ORDERED: levoFLOXacin 500 MG TAB PO SCH (14:00)
--- NOTE | 2021-07-21 15:18 | P.PN ---
Subjective Date of Service: 07/21/21 Primary Care Provider: Meyers Chief Complaint: osteomyelitis Patient seen examined at bedside, doing well no acute complaints. Pending transfer to LTAC. Review of Systems 10-point ROS is otherwise unremarkable Physical Examination - Vital Signs Temperature: 98.4 F Blood Pressure: 126/64 Pulse: 67 Respirations: 18 Pulse Ox (%): 94 - Studies Laboratory Last Values WBC 9.10 K/uL (4.3-10.9) 07/16/21 21:10 RBC 2.96 M/uL (4.33-5.43) L 07/16/21 21:10 Hgb 10.5 g/dL (13.6-17.9) L 07/16/21 21:10 Hct 30.8 % (39.6-49.0) L 07/16/21 21:10 MCV 103.9 fL (80-100) H D 07/16/21 21:10 MCH 35.4 pg (27.0-35.0) H 07/16/21 21:10 MCHC 34.1 g/dL (32.0-36.0) 07/16/21 21:10 RDW 16.8 % (12.1-15.2) H 07/16/21 21:10 Plt Count 180 K/uL (152-406) 07/16/21 21:10 MPV 8.1 fL (7.6-11.3) 07/16/21 21:10 Neutrophils % 84.4 % (41.7-73.7) H 07/16/21 21:10 Lymphocytes % 4.9 % (15.3-44.8) L 07/16/21 21:10 Monocytes % 8.9 % (3.3-12.3) 07/16/21 21:10 Eosinophils % 1.1 % (0-4.4) 07/16/21 21:10 Basophils % 0.7 % (0-1.3) 07/16/21 21:10 Absolute Neutrophils 7.7 K/uL (1.8-8.0) 07/16/21 21:10 Absolute Lymphocytes 0.4 K/uL (0.7-4.9) L 07/16/21 21:10 Absolute Monocytes 0.8 K/uL (0.1-1.3) 07/16/21 21:10 Absolute Eosinophils 0.1 K/uL (0-0.5) 07/16/21 21:10 Absolute Basophils 0.1 K/uL (0-0.5) 07/16/21 21:10 Sodium 139 mmol/L (136-145) 07/16/21 21:10 Potassium 4.0 mmol/L (3.5-5.1) 07/16/21 21:10 Chloride 99 mmol/L (98-107) 07/16/21 21:10 Carbon Dioxide 31 mmol/L (21-32) 07/16/21 21:10 BUN 28 mg/dL (7-18) H 07/16/21 21:10 Creatinine 7.27 mg/dL (0.55-1.3) H* 07/16/21 21:10 Estimated GFR 8 mL/min (=/>90) L 07/16/21 21:10 Glucose 148 mg/dL (74-106) H 07/16/21 21:10 Calcium 8.8 mg/dL (8.5-10.1) 07/16/21 21:10 SARS-CoV-2 Rap RNA(RT-PCR) Negative (NEGATIVE) 07/16/21 21:10 Microbiology Data (last 24 hrs): 07/16/21 21:10 Blood - Blood Aerobic Blood Culture - Final 07/16/21 21:10 Blood - Blood Blood Culture Gram Stain - Final Assessment And Plan - Plan Physical exam: General: Alert, In no apparent distress, Oriented x3 HEENT: Atraumatic, Normocephalic Neck: Supple, 2+ carotid pulse no bruit Respiratory: Clear to auscultation bilaterally, Normal air movement Cardiovascular: No edema, Normal pulses Gastrointestinal: Normal bowel sounds, Soft and benign Integumentary: Arterial ulcer (To right great hallux) Conclusions/Impression: Antibiotics: Vancomycin Start: 07/16 Levaquin Start: 07/21 Assessment/plan Right great hallux arterial ulcer with possible osteomyelitis X-ray negative, MRI showed osteomyelitis of 1st distal phalanx of the toe. Continue empiric antibiotic coverage with vancomycin and Levaquin. Vancomycin trough goal of 15-20. Vancomycin trough on 07/21 was 26.1, dosing has been adjusted. Rocephin switched to Levaquin for Pseudomonas coverage as patient has history of diabetes. Continue to trend inflammatory markers Wound care: Rayne area with Betadine Q Wednesday and keep leg elevated. ESRD on HD Avoid nephrotoxic agents, give vancomycin after dialysis on dialysis days. Give Levaquin every 48 hr after dialysis on dialysis days. Diabetes mellitus type 2 Continue strict glucose monitoring for proper wound healing and infection c ontrol Anemia Continue to monitor H&H Medical management per primary team Plan of care discussed with Dr. biggs Thank you for consultation
[2021-07-21] MEDS: ATORVASTATIN 10 MG TAB PO SCH (20:45)
[2021-07-21] MEDS: TRAMADOL HCL 50 MG TAB PO PRN (20:45)
--- NOTE | 2021-07-22 01:09 | PN ---
Date of Progress Note: 07/21/2021 History Of Present Illness: End-stage renal disease, on hemodialysis. The patient is complaining of shortness of breath. He received dialysis on Wednesday. The patient still has ultrafiltration with 3 L of fluid removal. Review of Systems: The patient is complaining some shortness of breath, denies PND or orthopnea. Physical Examination: Lungs: Clear to auscultation bilaterally. Few crackles at bases bilaterally. breath nas nds bilaterally. Heart: S1, S2. Abdomen: Soft, benign. Extremities: Slight edema. Impression And Plan: 1.End-stage renal disease. The patient will continue p.o. fluid restriction. The patient will have pure ultrafiltration. Continue dialysis for metabolic clearance. 2.Right foot first toe wound infection, osteomyelitis per other services. 3.Hypertension. Continue current blood pressure medication. 4.Diabetes mellitus, on insulin. Continue treatment. ALIREZA/MODL Voice ID: [id number] Report ID: [id number]
[2021-07-22 06:10] LABS: Hematocrit 26.9 % (39.6-49.0); MPV 8.3 fL (7.6-11.3); RBC Red Blood Cell Count 2.58 M/uL (4.33-5.43)
[2021-07-22 06:20] LABS: Magnesium 2.6 mg/dL (1.8-2.4); Potassium 4.4 mmol/L (3.5-5.1)
[2021-07-22] MEDS: INSULIN -REGULAR HUMAN 50 UNIT/0.5 ML ML SQ SCH ×4 (07:30→19:09)
--- NOTE | 2021-07-22 11:09 | P.PN ---
Subjective Date of Service: 07/22/21 Primary Care Provider: Meyers Chief Complaint: osteomyelitis Patient seen examined at bedside, denied transfer to LTAC. Review of Systems 10-point ROS is otherwise unremarkable Physical Examination - Vital Signs Temperature: 97.5 F Blood Pressure: 131/59 Pulse: 73 Respirations: 16 Pulse Ox (%): 96 - Studies Laboratory Last Values WBC 9.10 K/uL (4.3-10.9) 07/16/21 21:10 RBC 2.96 M/uL (4.33-5.43) L 07/16/21 21:10 Hgb 10.5 g/dL (13.6-17.9) L 07/16/21 21:10 Hct 30.8 % (39.6-49.0) L 07/16/21 21:10 MCV 103.9 fL (80-100) H D 07/16/21 21:10 MCH 35.4 pg (27.0-35.0) H 07/16/21 21:10 MCHC 34.1 g/dL (32.0-36.0) 07/16/21 21:10 RDW 16.8 % (12.1-15.2) H 07/16/21 21:10 Plt Count 180 K/uL (152-406) 07/16/21 21:10 MPV 8.1 fL (7.6-11.3) 07/16/21 21:10 Neutrophils % 84.4 % (41.7-73.7) H 07/16/21 21:10 Lymphocytes % 4.9 % (15.3-44.8) L 07/16/21 21:10 Monocytes % 8.9 % (3.3-12.3) 07/16/21 21:10 Eosinophils % 1.1 % (0-4.4) 07/16/21 21:10 Basophils % 0.7 % (0-1.3) 07/16/21 21:10 Absolute Neutrophils 7.7 K/uL (1.8-8.0) 07/16/21 21:10 Absolute Lymphocytes 0.4 K/uL (0.7-4.9) L 07/16/21 21:10 Absolute Monocytes 0.8 K/uL (0.1-1.3) 07/16/21 21:10 Absolute Eosinophils 0.1 K/uL (0-0.5) 07/16/21 21:10 Absolute Basophils 0.1 K/uL (0-0.5) 07/16/21 21:10 Sodium 139 mmol/L (136-145) 07/16/21 21:10 Potassium 4.0 mmol/L (3.5-5.1) 07/16/21 21:10 Chloride 99 mmol/L (98-107) 07/16/21 21:10 Carbon Dioxide 31 mmol/L (21-32) 07/16/21 21:10 BUN 28 mg/dL (7-18) H 07/16/21 21:10 Creatinine 7.27 mg/dL (0.55-1.3) H* 07/16/21 21:10 Estimated GFR 8 mL/min (=/>90) L 07/16/21 21:10 Glucose 148 mg/dL (74-106) H 07/16/21 21:10 Calcium 8.8 mg/dL (8.5-10.1) 07/16/21 21:10 SARS-CoV-2 Rap RNA(RT-PCR) Negative (NEGATIVE) 07/16/21 21:10 Microbiology Data (last 24 hrs): 07/16/21 21:10 Blood - Blood Aerobic Blood Culture - Final 07/16/21 21:10 Blood - Blood Blood Culture Gram Stain - Final 07/16/21 21:10 Blood - Blood Anaerobic Blood Culture - Final No growth in 5 days. 07/16/21 21:10 Blood - Blood Aerobic Blood Culture - Final No growth in 5 days. 07/16/21 21:10 Blood - Blood Anaerobic Blood Culture - Final No growth in 5 days. Assessment And Plan - Plan Physical exam: General: Alert, In no apparent distress, Oriented x3 HEENT: Atraumatic, Normocephalic Neck: Supple, 2+ carotid pulse no bruit Respiratory: Clear to auscultation bilaterally, Normal air movement Cardiovascular: No edema, Normal pulses Gastrointestinal: Normal bowel sounds, Soft and benign Integumentary: Arterial ulcer (To right great hallux--toe shows black necrotic tissue. Kayla wound tissue with purple/red discoloration extending up to the ankle) Conclusions/Impression: Antibiotics: Vancomycin Start: 07/16 Levaquin Start: 07/21 Assessment/plan Right great hallux arterial ulcer dry gangrene and osteomyelitis X-ray negative, MRI showed osteomyelitis of 1st distal phalanx of the toe. Continue empiric antibiotic coverage with vancomycin and Levaquin. Vancomycin trough goal of 15-20. Vancomycin trough on 07/21 was 26.1, dosing has been adjusted. Rocephin switched to Levaquin for Pseudomonas coverage as patient has history of diabetes. Continue to trend inflammatory markers Wound care: [place] area with Betadine Q Wednesday and keep leg elevated. peripheral vascular disease Arterial Doppler suggestive of significant stenosis. Patient will need vascular surgery intervention. Patient would benefit from hyperbaric oxygen treatment. ESRD on HD Avoid nephrotoxic agents, give vancomycin after dialysis on dialysis days. Give Levaquin every 48 hr after dialysis on dialysis days. Diabetes mellitus type 2 Continue strict glucose monitoring for proper wound healing and infection control Anemia Continue to monitor H&H Medical management per primary team Plan of care discussed with Dr. biggs Thank you for consultation
[2021-07-22] MEDS: CLOPIDOGREL 75 MG TABLET PO SCH (11:10)
[2021-07-22] MEDS: GABAPENTIN 300 MG CAP PO SCH ×3 (11:10→20:11)
[2021-07-22] MEDS: APIXABAN 5 MG TABLET PO SCH ×2 (11:11→20:11)
[2021-07-22] MEDS: TRAMADOL HCL 50 MG TAB PO PRN ×2 (11:16→21:15)
[2021-07-22] MEDS ORDERED: EPOETIN 4,000 UNIT/ML VIAL IV SCH (12:15)
--- NOTE | 2021-07-22 12:32 | PN ---
Date of Progress Note: 07/22/2021 Subjective: The patient was admitted with osteomyelitis. The patient receiving antibiotic. The patient waiting for approval for LTAC. Physical Examination: Vital Signs: Blood pressure of 131/59, pulse of 73, afebrile. Chest: Clear to auscultation. Heart: S1, S2. Regular. Abdomen: Soft, nontender. Extremity: Right big toe gangrene. Left AV fistula, good thrill radiocephalic. Neurologic: Alert. No focal. Laboratory Data: WBC 7.5, H and H 9.1/26.9, platelets 195. Sodium 135, potassium 4.4, bicarb 23, BUN 98, creatinine 13.9, calcium 9, phosphorus 2.6. Current Medications: The patient on include; 1. Levaquin 500 every 48 hours. 2. Vancomycin. 3. Eliquis. 4. Plavix. 5. Atorvastatin. 6. Gabapentin. Assessment And Plan: 1. End-stage renal disease. We will maintain the patient on dialysis. Schedule for dialysis today and we will follow up. Given the elevation in the BUN, I am going to prolong the dialysis treatment today to 3.5 and we will increase blood flow to 450 to achieve better clearance and we will follow up the patient. 2. Hyponatremia, going to be corrected with dialysis. 3. Hypertension, controlled, optimal. Continue current medication. 4. Anemia of chronic kidney disease. Continue DESHAUN. 5. Osteomyelitis. Continue current antibiotic. We will adjust the Levaquin to 250 after each dialysis as the patient on dialysis. Follow up with ID. time spend exam the patient face to face placing order , reviewing lab and radiology data , discussing the case with the nursing staff and other steamship agent including hospitalist and other economics consultant on the case 35 min OSMAN Voice ID: [id number] Report ID: [id number] FELICITAS
--- NOTE | 2021-07-22 18:57 | P.PN ---
Subjective Date of Service: 07/22/21 Primary Care Provider: Meyers Chief Complaint: osteomyelitis Physical Examination - Vital Signs Temperature: 97.0 F Blood Pressure: 121/51 Pulse: 69 Respirations: 16 Pulse Ox (%): 95 - Studies Microbiology Data (last 24 hrs): 07/16/21 21:10 Blood - Blood Aerobic Blood Culture - Final 07/16/21 21:10 Blood - Blood Blood Culture Gram Stain - Final 07/16/21 21:10 Blood - Blood Anaerobic Blood Culture - Final No growth in 5 days. 07/16/21 21:10 Blood - Blood Aerobic Blood Culture - Final No growth in 5 days. 07/16/21 21:10 Blood - Blood Anaerobic Blood Culture - Final No growth in 5 days. Assessment And Plan - Plan Physical exam GEN: Alert, oriented, NAD HEENT: Normal conjunctiva, sclera anicteric CV: Regular rate and rhythm, trace bilateral edema to ankles, right > left Pulm: Nonlabored respirations. Clear to auscultation bilaterally. ABD: Soft, nontender Integumentary: Black/dark discolored skin at tip of first toe on the right foot, tender along toe and plantar aspect of foot Neuro: No focal motor deficit. Problem List Right first toe ulceration / dry gangrene, with osteomyelitis Acute hypoxemic respiratory failure secondary to volume overload in setting of ESRD NIDDM2 ESRD on HD HTN CAD s/p CABG Continue IV vancomycin with dialysis and Levaquin every 48 hours. MRI consistent with osteomyelitis of first toe Arterial Doppler with likely significant stenosis of the superficial femoral artery. Patient is slated for 6 weeks of treatment General surgery was consulted, and recommended antibiotics and follow-up with vascular surgery, patient will need improved arterial blood supply to foot for healing Discussed with ID and patient, would prefer to go to LTAC where he can receive hyperbaric oxygen treatment, antibiotics, dialysis, and vascular surgery consult. Insurance denied LTAC placement. Exploring the option of home with IV antibiotics and wound care, and outpatient hyperbaric treatment. Continue home medications -antihypertensives on hold, has remained normotensive, lownormal Hemodialysis per nephrology. VTE: Home Eliquis Code: Full
[2021-07-22] MEDS: ATORVASTATIN 10 MG TAB PO SCH (20:11)
[2021-07-22 23:56] VITALS: O2SAT 97
[2021-07-23] MEDS: TRAMADOL HCL 50 MG TAB PO PRN (02:46)
[2021-07-23 06:37] LABS: Albumin 2.5 g/dL (3.4-5.0); Phosphorus 6.2 mg/dL (2.5-4.9); Potassium 4.1 mmol/L (3.5-5.1)
[2021-07-23] MEDS: INSULIN -REGULAR HUMAN 50 UNIT/0.5 ML ML SQ SCH (07:30)
[2021-07-23 08:17] VITALS: BP 114/64; TEMP 97.6
[2021-07-23] MEDS ORDERED: VANCOMYCIN 1 GM in NA CHLORIDE 0.9% 250 ML IVPB PRN (09:00)
--- NOTE | 2021-07-23 10:15 | P.DS ---
Admission Date: 07/16/21 Discharge Date: 07/23/21 Primary Care Provider: Meyers Disposition: ROUTINE DISCHARGE Discharge Condition: FAIR Reason for Admission: osteomyelitis Brief History of Present Illness: Mr. Sylvester is a 66 yo M with CAD, HTN, DM, ESRD on HD TTS who presents with two weeks of pain in his right big toe and hell. He saw a local nuclear weapons specialist last week who did an Xray and then dressed is wound. He changed the dressing at home and was scheduled to return to the clinic this Wednesday, but he had no relief in his pain. He denies drainage from the toe. Foot is discolored, and toe is showing signs of gangrene. Pain is worse with walking, relieved with rest and pain medication. Denies fever, nausea, vomiting. He received dialysis [facility] in anticipation of the hol, with next session scheduled for Wednesday. He receives dialysis at a clinic in [place]. BUN 28 Cr 7.27 GFR 8 Glu 148 Hospital Course: Diagnosis Right first toe ulceration / dry gangrene, with osteomyelitis Acute hypoxemic respiratory failure secondary to volume overload in setting of ESRD NIDDM2 ESRD on HD HTN CAD s/p CABG Hospital course MRI consistent with osteomyelitis of first toe. Arterial Doppler with likely significant stenosis of the right superficial femoral artery. Patient treated with IV vancomycin with dialysis and Levaquin. Seen by infectious disease and 6 weeks of antibiotics recommended-IV vancomycin with dialysis and oral Levaquin every 48 hours. General surgery was consulted, and recommended antibiotics and follow-up with vascular surgery. Patient will need improved arterial blood supply to foot for healing Initial plan was disposition to LTAC where he can receive hyperbaric oxygen treatment, antibiotics, dialysis, and vascular surgery consult but his insurance denied LTAC placement. Patient stated he has already made arrangement to see a vascular surgeon at [facility]. These inform to follow with [facility] wound care clinic for hyperbaric oxygen therapy. He is also discharged with home health for wound care. He will receive vancomycin at dialysis. Nephrology-Dr. Cook made aware of the IV antibiotics during dialysis and he plans to monitor and adjust vancomycin doses as needed. Held his antihypertensives because patient was normotensive, sometimes with soft blood pressure throughout the hospital stay. He received routine hemodialysis as recommended by nephrology during the hospital stay. Acute respiratory failure and volume overload resolved with hemodialysis. Other home medications included Eliquis which was discontinued during the hospital stay. Vital Signs/Physical Exam: Temp Pulse Resp BP Pulse Ox 97.6 F 69 16 114/64 97 07/23/21 08:00 07/23/21 08:00 07/23/21 08:00 07/23/21 08:00 07/23/21 08:00 General: Alert, In no apparent distress, Oriented x3 HEENT: Normocephalic, Mucous membr. moist/pink, Sclerae nonicteric Neck: Supple, JVD not distended Respiratory: Clear to auscultation bilaterally, Normal air movement Cardiovascular: No edema, Regular rate/rhythm, Normal S1 S2 Capillary refill: <2 Seconds Gastrointestinal: Normal bowel sounds, Soft and benign, Non-distended, No tenderness Musculoskeletal: Swelling (Right big toe) Integumentary: Other (Right big toe dry gangrene with areas of erythema and open wound around the toenail.) Neurological: Normal strength at 5/5 x4 extr, Cranial nerves 3-12 intact Laboratory Data at Discharge: WBC 7.50 K/uL (4.3-10.9) 07/22/21 05:25 Hgb 9.1 g/dL (13.6-17.9) L 07/22/21 05:25 Hct 26.9 % (39.6-49.0) L 07/22/21 05:25 Plt Count 195 K/uL (152-406) D 07/22/21 05:25 Sodium 138 mmol/L (136-145) 07/23/21 05:29 Potassium 4.1 mmol/L (3.5-5.1) 07/23/21 05:29 BUN 62 mg/dL (7-18) H D 07/23/21 05:29 Creatinine 9.85 mg/dL (0.55-1.3) H* D 07/23/21 05:29 Glucose 207 mg/dL (74-106) H 07/23/21 05:29 Phosphorus 6.2 mg/dL (2.5-4.9) H 07/23/21 05:29 Magnesium 2.6 mg/dL (1.8-2.4) H 07/22/21 05:25 Total Bilirubin 0.7 mg/dL (0.2-1.0) 07/20/21 03:47 AST 23 U/L (15-37) 07/20/21 03:47 ALT 14 U/L (12-78) 07/20/21 03:47 Alkaline Phosphatase 79 U/L (45-117) 07/20/21 03:47 Triglycerides 94 mg/dL (<150) 07/17/21 03:26 Cholesterol 70 mg/dL (<200) 07/17/21 03:26 HDL Cholesterol 29 mg/dL (40-60) L 07/17/21 03:26 Cholesterol/HDL Ratio 2.41 07/17/21 03:26 Home Medications: Apixaban [Eliquis] 5 mg PO DAILY 07/17/21 Clopidogrel Bisulfate [Plavix*] 75 mg PO DAILY 07/17/21 Gabapentin 300 mg PO TID 07/17/21 Losartan Potassium 50 mg PO BID 07/17/21 Pravastatin [Pravachol*] 40 mg PO BEDTIME 07/17/21 Sevelamer Carbonate 2,400 mg PO AC 07/17/21 Epoetin [Retacrit] 4,000 unit IV EVERY HD vial 07/23/21 Vancomycin/0.9 % Sod Chloride [Vanco 750 mg/150 ml-0.9% NaCl] 750 mg IV EVERY 3RD DAY #16 plast..bag 07/23/21 levoFLOXacin [Levaquin*] 500 mg PO Q48H #21 tab 07/23/21 New Medications: levoFLOXacin [Levaquin*] 500 mg PO Q48H #21 tab Vancomycin/0.9 % Sod Chloride [Vanco 750 mg/150 ml-0.9% NaCl] 750 mg IV EVERY 3RD DAY #16 plast..bag Physician Discharge Instructions: Vancomycin 750 mg IV after dialysis. Monitor vancomycin trough level once a week. Hold IV vancomycin if trough level is greater than 19. Nephrology-Dr. Cook to adjust vancomycin level. Referral to [facility] for Hyperbaric oxygen therapy. Follow up with Vascular surgeon regarding left superficial femoral artery stenosis. Diet: Renal Activity: Ad olivier Followup: Benito Meyers MD [Primary Care Provider] - 1 Week
[2021-07-23] MEDS: GABAPENTIN 300 MG CAP PO SCH (10:31)
[2021-07-23] MEDS: CLOPIDOGREL 75 MG TABLET PO SCH (10:31)
[2021-07-23] MEDS: APIXABAN 5 MG TABLET PO SCH (10:31)
[2021-07-24] MEDS ORDERED: VANCOMYCIN 1 GM in NA CHLORIDE 0.9% 250 ML IVPB PRN (09:00)
== END 2021-07-23 11:06 | disposition home or self-care (01) | DRG 299 ==
LOC: ER 19:15 → ERHOLD 23:44 → 2ND 07-17 00:40
PROVIDERS: ADMIT Hospitalist; ATTEND Internal Medicine
PROC: 5A1D70Z Performance of Urinary Filtration, Intermittent, Less than 6 Hours Per Day (ICD-10-PCS; principal; 2021-07-16)
DX: E11.52 Type 2 diabetes mellitus with diabetic peripheral angiopathy with gangrene (principal); J96.01 Acute respiratory failure with hypoxia; N18.6 End stage renal disease; I96 Gangrene, not elsewhere classified; I77.2 Rupture of artery; M86.171 Other acute osteomyelitis, right ankle and foot; I12.0 Hypertensive chronic kidney disease with stage 5 chronic kidney disease or end stage renal disease; I25.810 Atherosclerosis of coronary artery bypass graft(s) without angina pectoris; E46 Unspecified protein-calorie malnutrition; E87.1 Hypo-osmolality and hyponatremia; E11.69 Type 2 diabetes mellitus with other specified complication; E11.22 Type 2 diabetes mellitus with diabetic chronic kidney disease; E11.40 Type 2 diabetes mellitus with diabetic neuropathy, unspecified; E11.51 Type 2 diabetes mellitus with diabetic peripheral angiopathy without gangrene; E87.70 Fluid overload, unspecified; N25.0 Renal osteodystrophy; D63.1 Anemia in chronic kidney disease; E88.81 Metabolic syndrome and other insulin resistance; L03.031 Cellulitis of right toe; D63.8 Anemia in other chronic diseases classified elsewhere; Z99.2 Dependence on renal dialysis; Z79.01 Long term (current) use of anticoagulants; Z79.899 Other long term (current) drug therapy; Z68.32 Body mass index [BMI] 32.0-32.9, adult; Z95.828 Presence of other vascular implants and grafts; Z95.1 Presence of aortocoronary bypass graft; Z20.822 Contact with and (suspected) exposure to COVID-19
CPT/HCPCS: 36415; 71045; 71046; 80048; 80053; 80061; 80069; 80202; 82607; 82728; 82747; 82947; 83036; 83540; 83735; 84100; 84439; 84443; 84466; 85025; 85027; 85652; 86140; 87040; 87205; 90935; 93926; 94760; 96365; 96366; 96367; 96375; 99285; J2270; J2405; J3370; J7040; Q5105; U0003

== ENCOUNTER 2021-11-19 09:41 | Emergency (ER) | payer OTHER ==
--- OUTSIDE RECORDS SUMMARY | 2021-11-19 09:46 | XMS REPORT | Continuity of Care Document ---
:[address] [facility] t Address [address] [place] [address] Care Team Providers Name Role Phone Jane MEYERS Primary Care Physician Unavailable Wendy Attending Clinician Unavailable Trang PARKER Attending Clinician Unavailable Trang Bynum Attending Clinician Doctor Unassigned, Name Attending Clinician Unavailable Kulwant Bosch MD Attending Clinician Matt FARLEY Attending Clinician Transplant Attending Clinician Unavailable ALF Attending Clinician Unavailable VASCULAR Attending Clinician Unavailable ANDERSON Attending Clinician Unavailable Jane Meyers Admitting Clinician Unavailable ANDERSON Admitting Clinician Unavailable Payers Payer Name Policy Type Policy Number Effective Date Expiration Date S ource Problems Condition Condition Condition Status Onset Resolution Last Treating Co mments Source Name Details Category Date Date Treatment Clinician Date PAD PAD Disease Active Univers (periphera (periphera 2-14 it y of l artery l artery 00:00: [place] disease) disease) 00 Medica l Branch Obesity Obesity Disease Active Univers (BMI (BMI 2-12 ity of 30-39.9) 30-39.9) 00:00: [place] 00 Medical Branch Screening Screening Disease Active Overview: Univers for colon for colon 08-31 Formattin i ty of cancer cancer 00:00: g of this [place] note Medical might be Branch different from the original. Added automatic ally from request for surgery [id number] Caries Caries Disease Active 2017-08 Overview: Univer s 2- Formattin ity of 00:00: g of this [place] note Medical might be Branch different from the original. Added automatic ally from request for surgery [id number] ESRD (end ESRD (end Disease Active 2017-08 Uni vers stage stage 10-19 ity of renal renal 00:00: [place] disease) disease) 00 Medica l Branch Congestive Congestive Disease Active 2014-[address] 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 bilateral ly Neuropathy Neuropathy Disease Active U wingers ity of [facility] CAD CAD Disease Active Univers (coronary (coronary ity of artery artery [place] disease) disease) Medica l Branch PVD PVD Disease Active Univers (periphera (periphera it y of l vascular l vascular [place] disease) disease) Medica l Branch History of History of Problem Resolve Univers [...] Stage 5 d ity of chronic chronic [place] kidney kidney Physici disease disease ans not on not on chronic chronic dialysis dialysis Allergies, Adverse Reactions, Alerts Allergy Allergy Status Severity Reaction(s) Onset Inactive Treating Comm ents Source Name Type Date Date Clinician No Known DA Active U 2020-08 [facility] [place] [facility] 00:[facility]: d 00 [facility] No Known DA Active U 2019-08 [facility]ie 10-20 [place] 00:[place]: d 00 [facility] No Known DA Active U 2019-08 [facility]ie 2- [place] 00:00: d 00 [facility] NO KNOWN Drug Active Univers ALLERGIE Class ity of S [facility] Social History Social Habit Start Date Stop Date Quantity Comments Source Exposure to Not sure [facility]-CoV-2 [facility] (event) [place] Alcohol intake 2021-11-13 2021-11-[address] [facility] 00:00:00 00:00:00 (finding) [facility] Tobacco use and 2018-07-13 2018-07-13 Never used Universit y of exposure 00:00:00 00:00:00 [facility] Sex [birth year] Universit y of 00:00:00 00:00:00 [facility] Smoking Status Start Date Stop Date Source Never smoker [facility] Medications Ordered Filled Start Stop Current Ordering Indication Dosage Frequency Signature Comments Components Source Medication Medication Date Date Medication? Clinician (SIG) Name Name pravastatin Yes 40mg Take 40 mg Univers 40 mg 2-23 by mouth ity of tablet 18:10: at [place] [address] bedtime. Medical Branch gabapentin Yes 300mg Take 300 Un sia 300 mg 2-23 mg by ity of capsule 18:10: mouth 3 [place] [address] (three) Medical times Branch daily. glipiZIDE Yes 10mg Take 10 mg Un sia 10 mg 2-23 by mouth ity of tablet 18:10: daily. [address] clopidogreL Yes 75mg Take 75 mg Univers (PLAVIX) 75 2-23 by mouth ity of mg tablet 18:10: daily. [place] 39 Medical Branch pravastatin 2021-0 Yes 40mg Take 40 mg Univers 40 mg 2-23 by mouth ity of tablet 18:10: at [place] [address] bedtime. Medical Branch gabapentin 2021-0 Yes 300mg Take 300 Un sia 300 mg 2-23 mg by ity of capsule 18:10: mouth 3 [place] [address] (three) Medical times Branch daily. glipiZIDE 2021-0 Yes 10mg Take 10 mg Un sia 10 mg 2-23 by mouth ity of tablet 18:10: daily. [place] [address] Medical Branch clopidogreL 2021-0 Yes 75mg Take 75 mg Univers (PLAVIX) 75 2-23 by mouth ity of mg tablet 18:10: daily. [address] Branch minocycline 2021-0 Yes [id number] 100mg Take 1 Univers 100 mg 2-07 capsule by ity of capsule 00:00: mouth [place] 00 every 12 Medical (twelve) Branch hours. minocycline 2021-0 Yes [id number] 100mg Take 1 Univers 100 mg 2-07 capsule by ity of capsule 00:00: mouth [place] [address] every 12 Medical (twelve) Branch hours. traMADoL 2021-0 Yes [id number] 50mg Take 1 Univers (ULTRAM) 50 1-10 tablet by ity of mg tablet 00:00: mouth [place] 00 every 6 Medical (six) Branch hours as needed for Pain (scale 7-10) for up to 28 doses. Indication s: acute pain traMADoL 2021-0 Yes [id number] 50mg Take 1 Univers (ULTRAM) 50 1-10 tablet by ity of mg tablet 00:00: mouth [place] [address] every 6 Medical (six) Branch hours as needed for Pain (scale 7-10) for up to 28 doses. Indication s: acute pain sevelamer 2020-0 Yes TAKE 3 Univer s 800 mg 7-16 TABLETS BY ity of tablet 00:00: MOUTH [place] [address] THREE Medical TIMES Branch DAILY WITH MEALS sevelamer 2020-0 Yes TAKE 3 Univer s 800 mg 7-16 TABLETS BY ity of tablet 00:00: MOUTH [place] 00 THREE Medical TIMES Branch DAILY WITH MEALS ELIQUIS 5 2020- Yes 5mg Take 5 mg Uni vers mg tablet -01 by mouth ity of 00:00: every 12 [place] [address] (twelve) Medical hours. Branch ELIQUIS 5 Yes 5mg Take 5 mg Uni vers mg tablet 6-01 by mouth ity of 00:00: every 12 [place] 00 (twelve) Medical hours. Branch peg-electro 2017-08 Yes Take as Uni vers lyte soln 2-27 directed ity of [id number] 00:00: [place] .74 -5.86 00 colonoscop Medi ashley gram y Branch solution peg-electro 2017-08 Yes Take as Uni vers lyte soln 2-27 directed ity of 236-22.74-6 00:00: [place] .74 -5.86 00 colonoscop Medi ashley gram y Branch solution losartan 50 2017-08 Yes 50mg 50 mg 2 Uni vers mg tablet 2-03 (two) ity of 00:00: times [place] 00 daily. Medical Branch losartan 50 2017-08 Yes 50mg 50 mg 2 Uni vers mg tablet 2-03 (two) ity of 00:00: times [place] 00 daily. Medical Branch VITAMIN D2 2017-08 Yes Univers 50,000 unit 1-08 ity of capsule 00:00: [place] 00 Medical Branch VITAMIN D2 2017-08 Yes Univers 50,000 unit 1-08 ity of capsule 00:00: [place] 00 Medical Branch glimepiride Yes 2mg Take 1 Univ ers [...] mouth ity of 10 mg 00:00: daily. [place] tablet 00 [facility] Branch HydrALAZINE HydrALAZINE Yes U nivers HCl - [...] i ty of MG Oral MG Oral [place] Tablet Tablet Physici ans Metoprolol Metoprolol Yes [...] Immunizations Ordered Filled Immunization Date Status Comments [facility] Immunization Name Name Influenza Virus 2021-05-27 Completed Universit y of Vaccine Quad IM 3+ 00:00:00 [facility] Influenza Virus 2021-05-27 Completed Universit y of Vaccine Quad IM 3+ 00:00:00 [facility] SARS-COV-2 COVID-19 2021-05-01 Completed Unive rsity of MODERNA VACCINE 00:00:00 [facility] SARS-COV-2 COVID-19 2021-05-01 Completed Unive rsity of MODERNA VACCINE 00:00:00 [facility] SARS-COV-2 COVID-19 2020-11-16 Completed Unive rsity of MODERNA VACCINE 00:00:00 [facility] SARS-COV-2 COVID-19 2020-11-16 Completed Unive rsity of MODERNA VACCINE 00:00:00 [facility] SARS-COV-2 COVID-19 2020-10-19 Completed Unive rsity of MODERNA VACCINE 00:00:00 [facility] SARS-COV-2 COVID-19 2020-10-19 Completed Unive rsity of MODERNA VACCINE 00:00:00 [facility] Influenza Virus 2020-05-14 Completed Universit y of Vaccine 00:00:00 [facility] Influenza Virus 2020-05-14 Completed Universit y of Vaccine Quad IM 3+ 00:00:00 [facility] Influenza Virus 2020-05-14 Completed Universit y of Vaccine 00:00:00 [facility] Influenza Virus 2020-05-14 Completed Universit y of Vaccine Quad IM 3+ 00:00:00 [facility] HEP B, Adult Dosage 2018-08-04 Completed Unive rsity of 00:00:00 [facility] HEP B, Adult Dosage 2018-08-04 Completed Unive rsity of 00:00:00 [facility] Pneumococcal 13 2018-06-15 Completed Universit y of Conjugate, PCV13 00:00:00 [facility] dical (Prevnar 13) Branch Pneumococcal 13 2018-06-15 Completed Universit y of Conjugate, PCV13 00:00:00 [facility] dical (Prevnar 13) [place] Influenza Virus 2018-05-03 Completed Universit y of Vaccine 00:00:00 [facility] Influenza Virus 2018-05-03 Completed Universit y of Vaccine 00:00:00 [facility] Pneumococcal 2018-04-23 Completed University o f Polysaccharide, 00:00:00 [facility] PPSV23 (PNEUMOVAX) Branch Pneumococcal 2018-04-23 Completed University o f Polysaccharide, 00:00:00 [facility] PPSV23 (PNEUMOVAX) [place] HEP B, Adult Dosage 2018-02-01 Completed Unive rsity of 00:00:00 [facility] HEP B, Adult Dosage 2018-02-01 Completed Unive rsity of 00:00:00 [facility] HEP B, Adult Dosage 2018-01-01 Completed Unive rsity of 00:00:00 [facility] HEP B, Adult Dosage 2018-01-01 Completed Unive rsity of 00:00:00 [facility] HEP B, Adult Dosage 2017-12-02 Completed Unive rsity of 00:00:00 [facility] HEP B, Adult Dosage 2017-12-02 Completed Unive rsity of 00:00:00 [facility] Pneumococcal 2017-09-23 Completed University o f Polysaccharide, 00:00:00 [place] Med ical PPSV23 (PNEUMOVAX) Branch Pneumococcal 2017-09-23 Completed University o f Polysaccharide, 00:00:00 [place] Med ical PPSV23 (PNEUMOVAX) Branch PPD (TB) 2017-09-21 Completed University of 00:00:00 [facility] PPD (TB) 2017-09-21 Completed University 00:00:00 [facility] Pneumococcal 2016-02-28 Completed University o f Polysaccharide, 00:00:00 [place] Med ical PPSV23 (PNEUMOVAX) Branch Pneumococcal 2016-02-28 Completed University o f Polysaccharide, 00:00:00 [place] Med ical PPSV23 (PNEUMOVAX) Branch Influenza Virus 2015-05-28 Completed Universit y of Vaccine Quad IM 3+ 00:00:00 [facility] Influenza Virus 2015-05-28 Completed Universit y of Vaccine Quad IM 3+ 00:00:00 [facility] Vital Signs Vital Name Observation Time Observation Value Comments Source Systolic blood 2021-11-13 123 mm[Hg] [facility] pressure 19:39:00 [facility] Diastolic blood 2021-11-13 42 mm[Hg] [place] o pressure 19:39:00 [facility] Heart rate 2021-11-13 60 /min University of 19:39:00 [facility] Body temperature 2021-11-13 36.61 [place] University of 19:39:00 [facility] Respiratory rate 2021-11-13 18 /min University of 19:39:00 [facility] Body height 2021-11-13 175.3 cm University of 19:39:00 [facility] Body weight 2021-11-13 92.08 kg University of 19:39:00 [facility] BMI 2021-11-13 29.98 kg/m2 University of 19:39:00 [facility] BP Systolic 2017-07-21 128 mm[Hg] Location: [facility]; [facility] 11:32:00 Position: [place] Physician s Sitting BP Diastolic 2017-07-21 62 mm[Hg] Location: [facility]; [facility] :32:00 Position: [place] Physician s Sitting Weight 2017-07-21 228.375 [lb_av] University o f 11:32:00 [place] Physician s Body Mass Index 2017-07-21 33.73 kg/m2 University o f Calculated 11:32:00 [place] Physician s Temperature 2017-07-21 98.3 [degF] Method: Oral University of 11:32:00 [place] Physician s Heart Rate 2017-07-21 64 /min Location: R [place] of :32:00 Brachial [place] Physician s Artery; Quality: Normal Respiration Rate 2017-07-21 18 /min Quality: Normal Universi ty of 11:32:00 [place] Physician s BP Systolic 2017-06-30 133 mm[Hg] Location: [facility]; [place] of 11:39:00 Position: [place] Physician s Sitting BP Diastolic 2017-06-30 73 mm[Hg] Location: [facility]; [place] of 11:39:00 Position: [place] Physician s Sitting Weight 2017-06-30 229.5 [lb_av] University of 11:39:00 [place] Physician s Body Mass Index 2017-06-30 33.89 kg/m2 University o f Calculated 11:39:00 [place] Physician s Temperature 2017-06-30 97.4 [degF] Method: Oral University of :39:00 [place] Physician s Heart Rate 2017-06-30 61 /min University of 11:39:00 [place] Physician s Respiration Rate 2017-06-30 16 /min University of 11:39:00 [place] Physician s Procedures Procedure Date / Time Performed Performing Clinician [facility] History of bypass [facility] Physicians Encounters Start End Encounter Admission Attending Care Care Encounter Source Date/Time Date/Time Type Type Clinicians Facility Department ID 2021-08-12 Inpatient EL Wendy, [facility] CATH [id number] [facility] 13:00:00 Eber [id number] [facility] 2020-08-19 Inpatient Bhuriya, [facility] CATH [id number] [facility] 13:00:00 Eber [id number] [facility] 2021-12-18 2021-12-18 Outpatient R MARIE, [facility] [id number] Univers 14:30:00 14:30:00 [facility] [id number] 2021-12-09 2021-12-09 Outpatient R MARIE, [facility] [id number] Univers 15:30:00 15:30:00 [facility] [id number] [facility] 2021-11-13 2021-11-13 Office AMY ParkerIT [id number] Univers 15:00:00 15:30:00 Visit [facility] [id number] ity of CLINICS 4.2.7.2.686 Queenie guzman [id number] [place] [address] Branch 2021-08-13 2021-08-13 Outpatient NAVID Nguyen, [facility] [id number] 01-09 05:29:00 05:29:00 Eber [id number] [facility] 2020-05-28 2020-05-28 Orders Doctor DARIEN [id number] 00:00:00 00:00:00 Only Unassigned, SILVIA [id number] [place] [id number] 2020-05-03 2020-05-03 Orders Doctor DARIEN [id number] 00:00:00 00:00:00 Only Unassigned, SILVIA [id number] [place] [facility] [id number] [id number] 2020-04-30 2020-04-30 Abstract [facility] [id number] 00:00:00 00:00:00 Yadiel Blum MULTISPEC [id number] IALTY 4.2.7.2.686 [place] [id number] [facility] 2020-01-31 2020-01-31 Abstract [facility] [id number] 00:00:00 00:00:00 Yadiel A MULTISPEC [id number] IALTY 4.2.7.2.686 [place] [id number] [facility] 2020-01-31 2020-01-31 Orders Doctor DARIEN [id number].[id number] 00:00:00 00:00:00 Only Unassigned, SILVIA [id number] [place] [facility] 4.2.7.2.686 [id number] 2020-01-23 2020-01-23 [facility] DARIEN Gutierrez2.840.114 [id number] 07:32:22 23:59:00 Encounter Tabby VEGA [id number] HOSPITAL 4.2.7.2.686 [id number] 2020-01-23 2020-01-23 Orders Doctor DARIEN [id number] 00:00:00 00:00:00 Only Unassigned, SILVIA [id number] [place] [facility] 4.2.7.2.686 [id number] 2020-01-19 2020-01-19 Abstract [facility] [id number] 00:00:00 00:00:00 [place] A MULTISPEC [id number] IALTY 4.2.7.2.686 [place] [id number] [facility] 2019-12-27 2020-01-11 [facility] [id number] 07:58:11 12:47:54 ne Visit Kidney MULTISPEC [id number] IALTY 4.2.7.2.686 [place] [id number] [facility] 2020-01-11 2020-01-11 Telephone [facility] [id number] 00:00:00 00:00:00 [place] A MULTISPEC [id number] IALTY 4.2.7.2.686 [place] [id number] [facility] 2017-07-21 2017-07-21 AppointCLARITZA العراقي [id number] Univers 11:00:00 11:00:00 t; MAHIN MILNER Multi ity of SHEILA, M.D. [facility] 2017-06-30 2017-06-30 AppointCLARITZA العراقي [id number] Univers 11:15:00 11:15:00 t; MAHIN MILNER Multi ity of SHEILA, M.D. Specialty [place] [facility] 2017-06-07 2017-06-07 AppointCLARITZA الع[place] [id number] Univers 10:45:00 10:45:00 t; MAHIN MILNER ity of SHEILA, M.D. [facility] Physici ans 2017-05-13 2017-05-13 Appointmen VASCULAR, [facility] UTP [id number] Univers 15:00:00 15:00:00 t; YOUNG ity o f VASCULAR, [facility] [place] [facility] Physici ans 2017-05-10 2017-05-10 Appointmen ALF, [facility] UTP [id number] Univers 11:00:00 11:00:00 t; MAHIN MILNER ity of SHEILA, M.D. [facility] Physici ans Results Test Description Test Time Test Comments Results Result Comments Source COAGULATION TIME ACTIVATED 2021-10-21 08:44:00 Test Item Value Reference Range Interpretation Comme nts COAGULATION TIME ACTIVATED (test code = ACT) 173 SECistat 74-125 H COAGULATION TIME [id number] 08:44:00 Test Item Value Reference Range Interpretation Comments COAGULATION TIME ACTIVATED (test 165 SECistat 74-125 H code = ACT) COAGULATION TIME [id number] 08:44:00 Test Item Value Reference Range Interpretation Comments COAGULATION TIME ACTIVATED (test 169 SECistat 74-125 H code = ACT) COAGULATION TIME [id number] 08:44:00 Test Item Value Reference Range Interpretation Comments COAGULATION TIME ACTIVATED (test 173 SECistat 74-125 H code = ACT) COAGULATION TIME [id number] 08:44:00 Test Item Value Reference Range Interpretation Comments COAGULATION TIME ACTIVATED (test 169 SECistat 74-125 H code = ACT) COAGULATION TIME [id number] 08:44:00 Test Item Value Reference Range Interpretation Comments COAGULATION TIME ACTIVATED (test 224 SECistat 74-125 H code = ACT) COAGULATION TIME [id number] 08:44:00 Test Item Value Reference Range Interpretation Comments COAGULATION TIME ACTIVATED (test 233 SECistat 74-125 H code = ACT) COAGULATION TIME [id number] 07:09:00 Test Item Value Reference Range Interpretation Comments COAGULATION TIME ACTIVATED (test 147 SECistat 74-125 H code = ACT) CBC W/AUTO [id number] 15:28:00 Test Item Value Reference Range Interpretation Comments WHITE BLOOD CELL 5.8 K/mm3 3.5-11.0 N (test code = WBC) RED BLOOD CELL (test 2.85 M/mm3 4.70-6.10 L code = RBC) HEMOGLOBIN (test code 9.5 G/DL 12.3-15.9 L = HGB) HEMATOCRIT (test code 29.6 % 35.8-46.7 L = HCT) MEAN CELL VOLUME 103.9 Fl 86.3-98.9 H (test code = MCV) MEAN CELL HGB (test 33.3 pg 28.9-34.4 N code = MCH) MEAN CELL HGB 32.1 G/DL 32.1-34.5 N CONCETRATION (test code = MCHC) RED CELL DISTRIBUTION 15.9 SD 11.5-14.5 H WIDTH (test code = RDW) PLATELET COUNT (test 142 K/mm3 150-450 L code = PLT) MEAN PLATELET VOLUME 10.50 fL 7.0-9.6 H (test code = MPV) NEUTROPHIL % (test 77.8 % 40-76 H code = NT%) IMMATURE GRANULOCYTE 0.3 % 0.0-5.0 N % (test code = IG%) LYMPHOCYTE % (test 5.3 % 20.5-51.1 L code = LY%) MONOCYTE % (test code 9.8 % 1.7-9.3 H = MO%) EOSINOPHIL % (test 5.9 % 0.0-6.0 N code = EO%) BASOPHIL % (test code 0.9 % 0.0-2.0 N = BA%) NUCLEATED RBC % (test 0.0 /100WBC% 0.0-1.0 N code = NRBC%) NEUTROPHIL # (test 4.5 K/mm3 1.8-7.6 N code = NT#) IMMATURE GRANULOCYTE 0.02 x10 3/uL 0.00-0.03 N # (test code = IG#) LYMPHOCYTE # (test 0.3 K/mm3 0.6-3.0 L code = LY#) MONOCYTE # (test code 0.6 K/mm3 0.2-1.5 N = MO#) EOSINOPHIL # (test 0.3 K/mm3 0.0-0.4 N code = EO#) BASOPHIL # (test code 0.1 K/mm3 0.0-0.2 N = BA#) NUCLEATED RBC # (test 0.0 K/mm3 0.00-0.01 N code = NRBC#) MANUAL DIFF REQUIRED NO DIFF/SCN CRITERIA SLIDE R MARY (test code = MDIFF) CONSISTA NT WITH AUTO DIFFERENTI AL. COVID 19 INHOUSE [id number] 14:18:00 Test Item Value Reference Range Interpretation Comments COVID 19 INHOUSE AG NEGATIVE Negative Per manu facturer, (test code = negative result s should [id number]) be treated aspr esumptive and, if inconsi [...] nicalsigns and symptoms co nsistent with COVID-19. BASIC METABOLIC [id number] 14:07:00 Test Item Value Reference Range Interpretation Comments SODIUM (test code = NA) 141 mmol/L 134-147 N POTASSIUM (test code = K) 3.5 mmol/L 3.4-5.0 N CHLORIDE (test code = CL) 101 mmol/L 100-108 N CARBON DIOXIDE (test code = 25 mmol/L 21-32 N CO2) ANION GAP (test code = GAP) 15.0 GAP calc 4.0-15.0 N GLUCOSE (test code = GLU) 125 MG/DL 70-110 H BLOOD UREA NITROGEN (test code 18 MG/DL 7-18 N = BUN) GLOMERULAR FILTRATION RATE 13 estGFR >60 L (test code = GFR) CREATININE (test code = CREAT) 4.8 MG/DL 0.8-1.3 H CALCIUM (test code = CA) 8.8 MG/DL 8.5-10.1 N THROMBOPLASTIN TIME [id number] 13:59:00 Test Item Value Reference Range Interpretation Comments THROMBOPLASTIN TIME PARTIAL 36.7 SECONDS 26-35 H (test code = PTT) AB HEPATITIS B [id number] 06:11:00 Test Item Value Reference Range Interpretation Comments AB HEPATITIS B 330.9 mIU/mL Immunity>9.9 Status of I mmunity SURFACE (test code = HBSAB) Anti-HBs Level --- I ncons istent with Imm unity 0.0 - 9.9Consis tent with Immunity >9.9 AG HEPATITIS B [id number] 06:11:00 Test Item Value Reference Range Interpretation Comments AG HEPATITIS B SURFACE (test code = SCREEN NEGATIVE HBSAG) AB HEPATITIS B [id number] 06:11:00 Test Item Value Reference Range Interpretation Comments AB HEPATITIS B CORE (test code = HBCAB) AB HEPATITIS B [id number] 06:11:00 Test Item Value Reference Range Interpretation Comments AB HEPATITIS B 330.9 mIU/mL Immunity>9.9 Status of I mmunity SURFACE (test code = HBSAB) Anti-HBs Level --- I ncons istent with Imm unity 0.0 - 9.9Consis tent with Immunity >9.9 AG HEPATITIS B [id number] 06:11:00 Test Item Value Reference Range Interpretation Comments AG HEPATITIS B SURFACE (test code = Negative Negative HBSAG) AB HEPATITIS B [id number] 06:11:00 Test Item Value Reference Range Interpretation Comments AB HEPATITIS B CORE (test code = HBCAB) AB HEPATITIS B [id number] 06:11:00 Test Item Value Reference Range Interpretation Comments AB HEPATITIS B 330.9 mIU/mL Immunity>9.9 Status of I mmunity SURFACE (test code = HBSAB) Anti-HBs Level --- I ncons istent with Imm unity 0.0 - 9.9Consis tent with Immunity >9.9 AG HEPATITIS B [id number] 06:11:00 Test Item Value Reference Range Interpretation Comments AG HEPATITIS B SURFACE (test code = Negative Negative HBSAG) AB HEPATITIS B [id number] 06:11:00 Test Item Value Reference Range Interpretation Comments AB HEPATITIS B CORE Negative Negative Performe d At: HD (test code = HBCAB) [id number] [place], [place] [id number] rosendo Lockwood MD [phone] COMPREHENSIVE METABOLIC [id number] 07:10:00 Test Item Value Reference Range Interpretation [...] 50-136 N code = ALKP) CBC W/AUTO [id number] 06:54:00 Test Item Value Reference Range Interpretation [...] NO DIFF/SCN CRITERIA = MDIFF) GLUCOSE BEDSIDE [id number] 20:01:00 Test Item Value Reference Range Interpretation Comments GLUCOSE BEDSIDE TESTING (test code 165 mg/dL 70-110 H = GLUBED) COMPREHENSIVE METABOLIC [id number] 12:33:00 Test Item Value Reference Range Interpretation [...] 50-136 N code = ALKP) CBC W/AUTO [id number] 12:25:00 Test Item Value Reference Range Interpretation [...] DIFF/SCN CRITERIA = MDIFF) COVID 19 INHOUSE [id number] 12:24:00 Test Item Value Reference Range Interpretation Comments COVID 19 INHOUSE AG NEGATIVE Negative Per manu facturer, (test code = negative result s should [id number]) be treated aspr esumptive and, if inconsi [...] nicalsigns and symptoms co nsistent with COVID-19. Special Procedure Send [id number] 09:36:00 Test Item Value Reference Range Interpretation Comments Performing Site (test See [facility] Report code = SITE) Test Ordered (test B-Type Natriuretic code = TESTORD) Peptide
[2021-11-19 10:21] LABS: Absolute Lymphocytes (CBC) 0.4 K/uL (0.7-4.9); Hematocrit 30.1 % (39.6-49.0); Lymphocytes % 5.4 % (15.3-44.8); MPV 8.6 fL (7.6-11.3); RBC Red Blood Cell Count 3.13 M/uL (4.33-5.43)
[2021-11-19 10:47] LABS: Potassium 3.8 mmol/L (3.5-5.1); Troponin High Sensitivity 32.1 pg/mL (<58.9)
--- NOTE | 2021-11-19 11:20 | RAD REPORT ---
EXAM DESCRIPTION: RAD - Chest Single View - 11/19/2021 11:08 am CLINICAL HISTORY: DYSPNEA COMPARISON: Chest Single View dated 07/20/2021; Chest Pa And Lat (2 Views) dated 07/18/2021; Chest S jimmy View dated 07/17/2021; Chest Single View dated 10/08/2020 FINDINGS: Lines: Sternotomy. Lungs: Scattered bilateral airspace opacities. Pleural: Small effusions suspected on the left side. Cardiac: Cardiomegaly. Bones: No acute fractures. Remote left-sided rib fracture. Other: IMPRESSION: Scattered ill-defined bilateral airspace disease could represent multifocal pneumonia.
[2021-11-19 12:21] LABS: SARS-COV-2 RT PCR NEGATIVE (NEGATIVE)
[2021-11-19] MEDS ORDERED: CEFTRIAXONE 1000 MG/VIAL ONE (12:29)
[2021-11-19] MEDS ORDERED: AZITHROMYCIN 250 MG TAB ONE (12:29)
--- NOTE | 2021-11-19 12:37 | ER ---
Nurse's Notes [facility] – [place], [place] Name: Refugio Sylvester Age: 66 yrs Sex: Male : 1955 Arrival Date: 11/19/2021 Time: 09:43 Bed 12 Private MD: Benito Meyers E Diagnosis: Other pneumonia, unspecified organism Presentation: 11/19 10:01 Chief complaint: Patient states: Cough "for awhile". SOB for 3 days. No fevers. ll1 Coronavirus screen: Vaccine status: Patient reports being unvaccinated. Client denies travel out of the [place] in the last 14 days. cough unrelated to allergies, difficulty breathing, shortness of breath, Client presents with at least one sign or symptom that may indicate coronavirus-19. Standard/surgical mask placed on the client. Ebola Screen: Patient denies travel to an Ebola-affected area in the 21 days before illness onset. Initial Sepsis Screen: Does the patient meet any 2 criteria? No. Patient's initial sepsis screen is negative. Does the patient have a suspected source of infection? Yes: Productive cough/pneumonia. Risk Assessment: Do you want to hurt yourself or someone else? Patient reports no desire to harm self or others. Onset of symptoms was November 17, 2021. 10:01 Method Of Arrival: Wheelchair ll1 10:01 Acuity: JOSH 3 ll1 Triage Assessment: 10:04 General: Appears in no apparent distress. Behavior is calm, cooperative, appropriate ll1 for age. Pain: Denies pain. Respiratory: Reports shortness of breath cough that is Onset: The symptoms/episode began/occurred 3 days, the patient has mild shortness of breath. 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 - Social history:: Smoking status: Patient denies any tobacco usage or history of. Screenin:26 Abuse screen: Denies threats or abuse. Denies injuries from another. Nutritional ab2 screening: No deficits noted. Tuberculosis screening: No symptoms or risk factors identified. Fall Risk None identified. Assessment: 10:24 General: Appears in no apparent distress. comfortable, Behavior is calm, cooperative, ab2 appropriate for age. Pain:. Neuro: No deficits noted. Level of Consciousness is awake, alert, obeys commands, Oriented to person, place, time, situation, Appropriate for age Chain Offbearer are equal bilaterally Speech is normal, Facial symmetry appears normal. Cardiovascular: Reports shortness of breath, Heart tones S1 S2 present Patient's skin is warm and dry. Rhythm is atrial fibrillation. Respiratory: Reports shortness of breath cough that is Airway is patent Respiratory effort is even, unlabored, Respiratory pattern is regular, symmetrical, Breath sounds are diminished bilaterally. GI: No deficits noted. No signs and/or symptoms were reported involving the gastrointestinal system. Abdomen is round Patient currently denies abdominal pain. : No deficits noted. No signs and/or symptoms were reported regarding the genitourinary system. EENT: No deficits noted. No signs and/or symptoms were reported regarding the EENT system. Derm: No deficits noted. Skin is intact, Skin is dry. 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 Vital Signs: 10:01 BP 139 / 72; Pulse 73; Resp 18; Temp 98.1; Pulse Ox 94% on R/A; Weight 92.99 kg; Height ll1 5 ft. 9 in. (175.26 cm); Pain 0/10; 10:23 BP 140 / 80; Pulse 63; Resp 18; Pulse Ox 95% on R/A; ab2 11:20 BP 162 / 71; Pulse 69; Resp 17; Pulse Ox 99% on R/A; ab2 12:30 BP 143 / 90; Pulse 63; Resp 18; Pulse Ox 98% on R/A; ab2 10:01 Body Mass Index 30.27 (92.99 kg, 175.26 cm) ll1 10:01 O2 92-96% RA throughout triage. ll1 ED Course: 09:43 Patient arrived in ED. rg4 09:44 Benito Meyers MD is Private Physician. rg4 09:56 [facility] Cabral [facility]-C [facility] kb 09:56 Rahul Jorgensen DO is Attending Physician. kb 09:58 Og Cohn is Primary Nurse. ab2 10:01 Arm band placed on Patient placed in an exam room, on a stretcher. ll1 10:04 Triage completed. ll1 10:10 COVID-19/FLU A+B (Document "Date of Onset" if Symptomatic) Sent. ab2 10:26 Patient has correct armband on for positive identification. Bed in low position. Call ab2 light in reach. Side rails up X2. Adult w/ patient. 10:26 No provider procedures requiring assistance completed. Inserted saline lock: 20 gauge ab2 in right antecubital area, using aseptic technique. Blood collected. 10:26 Troponin HS Sent. ab2 10:26 Basic Metabolic Panel Sent. ab2 11:10 XRAY Chest (1 view) In Process Unspecified. EDMS 12:44 IV discontinued, intact, bleeding controlled, No redness/swelling at site. Pressure ab2 dressing applied. Administered Medications: 12:30 Drug: Rocephin (cefTRIAXone) 1 grams Route: IV; Rate: calculated rate; Site: right ab2 antecubital; 12:44 Follow up: Response: No adverse reaction; IV Status: Completed infusion ab2 12:30 Drug: Zithromax (azithromycin) 500 mg Route: PO; ab2 12:44 Follow up: Response: No adverse reaction ab2 Outcome: 12:36 Discharge ordered by . kb 12:44 Discharged to home via wheelchair, with family. ab2 12:44 Condition: good 12:44 Discharge instructions given to patient, significant other, Instructed on discharge instructions, follow up and referral plans. medication usage, Demonstrated understanding of instructions, follow-up care, medications, Prescriptions given X 1. 12:45 Patient left the ED. ab2 Signatures: Dispatcher [employer] EDMS Simi Cabral, GAYLE RADFORD-Laura Beltran rg4 Aurelia Esparza, RN RN ll1 Og Cohn ab2
--- NOTE | 2021-11-19 12:37 | EDPHYS ---
Physician Documentation [facility] Name: Refugio Sylvester Age: 66 yrs Sex: Male : 1955 Arrival Date: 11/19/2021 Time: 09:43 Bed 12 Private MD: Benito Meyers E ED Physician Rahul Jorgensen HPI: 11/19 11:42 This 66 yrs old Male presents to ER via Wheelchair with complaints of kb Breathing Difficulty. 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 - Social history:: Smoking status: Patient denies any tobacco usage or history of. ROS: 10:18 Constitutional: Negative for fever, chills, and weight loss. kb 10:18 Respiratory: Positive for cough, shortness of breath. 10:18 All other systems are negative. Exam: 10:17 Constitutional: This is a well developed, well nourished patient who is awake, alert, kb and in no acute distress. Head/Face: Normocephalic, atraumatic. ENT: Moist Mucous membranes Respiratory: Respirations even and unlabored. No increased work of breathing. Talking in full sentences Skin: Warm, dry with normal turgor. Normal color. MS/ Extremity: Pulses equal, no cyanosis. Neurovascular intact. Full, normal range of motion. Neuro: Awake and alert, GCS 15, oriented to person, place, time, and situation. Moves all extremities. Normal gait. Psych: Awake, alert, with orientation to person, place and time. Behavior, mood, and affect are within normal limits. 10:17 ECG was reviewed by the Attending Physician. 10:17 Cardiovascular: Rate: normal, Rhythm: irregularly irregular. kb Vital Signs: 10:01 BP 139 / 72; Pulse 73; Resp 18; Temp 98.1; Pulse Ox 94% on R/A; Weight 92.99 kg; Height ll1 5 ft. 9 in. (175.26 cm); Pain 0/10; 10:23 BP 140 / 80; Pulse 63; Resp 18; Pulse Ox 95% on R/A; ab2 11:20 BP 162 / 71; Pulse 69; Resp 17; Pulse Ox 99% on R/A; ab2 12:30 BP 143 / 90; Pulse 63; Resp 18; Pulse Ox 98% on R/A; ab2 10:01 Body Mass Index 30.27 (92.99 kg, 175.26 cm) ll1 10:01 O2 92-96% RA throughout triage. ll1 MDM: 09:56 Patient medically screened. kb 10:23 Data reviewed: vital signs, nurses notes. Data interpreted: Pulse oximetry: on room air kb is 94 %. Interpretation: normal. 12:22 Counseling: I had a detailed discussion with the patient and/or guardian regarding: the kb historical points, exam findings, and any diagnostic results supporting the discharge/admit diagnosis, lab results, radiology results, the need for outpatient follow up, a family practitioner, to return to the emergency department if symptoms worsen or persist or if there are any questions or concerns that arise at home. 11/19 09:57 Order name: Basic Metabolic Panel; Complete Time: 10:49 kb 11/19 09:57 Order name: CBC with Diff kb 11/19 09:57 Order name: Troponin HS; Complete Time: 10:49 kb 11/19 09:57 Order name: XRAY Chest (1 view); Complete Time: 11:24 kb 11/19 09:57 Order name: COVID-19/FLU A+B (Document "Date of Onset" if Symptomatic); Complete Time: kb 12:21 11/19 09:57 Order name: EKG; Complete Time: 09:57 kb 11/19 09:57 Order name: Cardiac monitoring; Complete Time: 10:17 kb 11/19 09:57 Order name: EKG - Nurse/Tech; Complete Time: 10:17 kb 11/19 09:57 Order name: IV Saline Lock; Complete Time: 10:10 kb 11/19 09:57 Order name: Labs collected and sent; Complete Time: 10:10 kb 11/19 09:57 Order name: O2 Per Protocol; Complete Time: 10:10 kb 11/19 09:57 Order name: O2 Sat Monitoring; Complete Time: 10:10 kb EC:17 Rate is 64 beats/min. Rhythm is irregularly irregular. Left axis deviation noted. QRS kb interval is normal at 122 msec. QT interval is normal at 472 msec. Administered Medications: 12:30 Drug: Rocephin (cefTRIAXone) 1 grams Route: IV; Rate: calculated rate; Site: right ab2 antecubital; 12:44 Follow up: Response: No adverse reaction; IV Status: Completed infusion ab2 12:30 Drug: Zithromax (azithromycin) 500 mg Route: PO; ab2 12:44 Follow up: Response: No adverse reaction ab2 Disposition: 14:53 Co-signature as Attending Physician, Rahul Jorgensen DO I was immediately available on-site ms3 in the Emergency Department for consultation in the care of the patient.. Disposition Summary: 11/19/21 12:36 Discharge Ordered Location: Home kb Condition: Stable kb Diagnosis - Other pneumonia, unspecified organism kb Followup: kb - With: Emergency Department - When: As needed - Reason: Worsening of condition Followup: kb - With: Private Physician - When: 2 - 3 days - Reason: Recheck today's complaints, Continuance of care, Re-evaluation by your physician Discharge Instructions: - Discharge Summary Sheet kb - Community-Acquired Pneumonia, Adult, [id number] kb Forms: - Medication Reconciliation Form kb - Thank You Letter kb - Antibiotic Education kb - Prescription Opioid Use kb Prescriptions: - Zithromax 500 mg Oral Tablet - take 1 tablet by ORAL route once daily for 5 days; 5 tablet; Refills: 0, kb Product Selection Permitted Signatures: Dispatcher [employer] Simi Luna, PRABHAKAR-C PRABHAKAR-Aurelia Spears RN RN ll1 Rahul Jorgensen, DO YUAN ms3 Og Cohn ab2
[2021-11-19 12:50] VITALS: TEMP 98.1
[2021-11-19 12:54] VITALS: BP 143/90; O2SAT 98
[2021-11-19 13:33] LABS: Anisocytosis SLIGHT; Blood Morphology Comment NOTED (NOT SEEN); Platelet Estimate ADEQ; Poikilocytosis SLIGHT
--- NOTE | 2021-11-24 11:30 | EKG ---
Test Date: 2021-11-19 Test Time: 10:15:52 Tire Recapper: AB MEASUREMENT RESULTS: Intervals: Rate: 64 RI: QRSD: 122 QT: 472 QTc: 486 [place]: P: RI: QRS: -33 T: 173 INTERPRETIVE STATEMENTS: Atrial fibrillation Left axis deviation Left ventricular hypertrophy with QRS widening Cannot rule out Septal infarct, age undetermined ST & T wave abnormality, consider lateral ischemia or digitalis effect Abnormal ECG No previous ECG available for comparison Electronically Signed On 11-24-21 11:14:53 CDT by Corby Benjamin
== END 2021-11-19 12:45 | disposition home or self-care (01) ==
LOC: ER 09:41
DX: J18.8 Other pneumonia, unspecified organism (principal); E11.22 Type 2 diabetes mellitus with diabetic chronic kidney disease; I12.0 Hypertensive chronic kidney disease with stage 5 chronic kidney disease or end stage renal disease; N18.6 End stage renal disease; Z95.1 Presence of aortocoronary bypass graft; Z20.822 Contact with and (suspected) exposure to COVID-19
CPT/HCPCS: 93005; 85025; 80048; 36415; 84484; 0240U; 71045; 96374; 99284

== ENCOUNTER 2022-03-20 09:51 | Emergency (ER) | payer OTHER ==
[2022-03-20] MEDS ORDERED: HYDROCODONE/APAP 10/325 TAB ONE (10:40)
--- NOTE | 2022-03-20 11:16 | RAD REPORT ---
EXAM DESCRIPTION: CT - CTHCSPWOC - 03/20/2022 10:59 am CLINICAL HISTORY: Trauma, head and neck injury. fal COMPARISON: No comparisons TECHNIQUE: Axial 5 mm thick images of the head were obtained. Axial 2 mm thick images of the cervical spine were obtained with sagittal and coronal reconstruction images generated and reviewed. All CT scans are performed using dose optimization technique as appropriate and may include automated exposure control or mA/KV adjustment according to patient size. FINDINGS: CT HEAD WITHOUT CONTRAST: No acute hemorrhage, hydrocephalus or extra-axial collection is identified.No areas of brain edema or midline shift. Chronic small vessel ischemic changes which are mild. The paranasal sinuses and mastoids are clear.The calvarium is intact. CT CERVICAL SPINE WITHOUT CONTRAST: No fracture identified. 2 millimeters anterolisthesis of C4 on C5 is noted. Varying degrees of neural foraminal narrowing noted.No prevertebral soft tissues swelling is identified. IMPRESSION: No acute intracranial or cervical spine findings.
--- NOTE | 2022-03-20 11:19 | RAD REPORT ---
EXAM DESCRIPTION: CT - Thorax Wo Con - 03/20/2022 11:02 am CLINICAL HISTORY: Chest trauma, blunt COMPARISON: Head C Spine Mpr Wo Con dated 03/20/2022 FINDINGS: Chest Wall: No suspicious thyroid nodules or pathologic lymphadenopathy. Lungs: Subpleural thickening in left lower lobe favored represent round atelectasis as a result of a presumably small left chronic pleural effusion. No acute process in the lungs. Pleura: Small left pleural effusion which is likely chronic. Mediastinum/tee: No pathologic lymphadenopathy. Pulmonary arteries/Aorta: Limited evaluation without contrast. No aortic aneurysm. Heart: No significant pericardial effusion. Cardiomegaly. Multi-vessel coronary artery disease. Upper abdomen: No acute abnormality. Bones: Comminuted right mid clavicle fracture. Sternotomy. Remote left-sided rib fractures. All CT scans are performed using dose optimization technique as appropriate and may include automated exposure control or mA/KV adjustment according to patient size. IMPRESSION: Displaced and mildly comminuted right mid clavicle fracture. No other evidence of signif icant trauma is identified. Incidental findings as noted above.
--- NOTE | 2022-03-20 11:32 | ER ---
Nurse's Notes [facility] Name: Refugio Sylvester Age: 67 yrs Sex: Male : 1955 Arrival Date: 03/20/2022 Time: 10:01 Bed 10 Private MD: Diagnosis: Fracture of shaft of clavicle;Displaced fracture of shaft of right clavicle;Fall (on) (from) other stairs and steps-2 FOOT, BED Presentation: 03/20 10:15 Chief complaint: EMS states: Patient was trying to readjust himself in the bed and he bm7 rolled out. He states he hit his head but did not have any LOC. He also states his right clavicle hurts. Coronavirus screen: At this time, the client does not indicate any symptoms associated with coronavirus-19. Ebola Screen: No symptoms or risks identified at this time. Initial Sepsis Screen: Does the patient meet any 2 criteria? No. Patient's initial sepsis screen is negative. Does the patient have a suspected source of infection? No. Patient's initial sepsis screen is negative. Risk Assessment: Do you want to hurt yourself or someone else? Patient reports no desire to harm self or others. Onset of symptoms was March 20, 2022. 10:15 Method Of Arrival: EMS: [facility] bm7 10:15 Acuity: JOSH 3 bm7 10:15 Acuity: JOSH 3 bm7 Triage Assessment: 10:18 General: Appears in no apparent distress. uncomfortable, well developed, Behavior is bm7 calm, cooperative, appropriate for age. Pain: Complains of pain in right supraclavicular area Pain does not radiate. Pain currently is 8 out of 10 on a pain scale. Quality of pain is described as sharp, Is continuous. EENT: No deficits noted. No signs and/or symptoms were reported regarding the EENT system. Neuro: Level of Consciousness is awake, alert, obeys commands, Oriented to person, place, time, situation, Packing Line Worker are equal bilaterally Moves all extremities. Denies blurred vision dizziness, headache. Cardiovascular: Denies chest pain, shortness of breath, Chest pain is denied. Cardiovascular: Patient's skin is warm and dry. Parent/caregiver reports patient has had PATIENT WEARING A LIFE VEST. Respiratory: No deficits noted. GI: Abdomen is round non-distended. : No deficits noted. No signs and/or symptoms were reported regarding the genitourinary system. Reports PT STATES HE DOES NOT MAKE URINE. Derm: PT HAS A DRESSING TO THE LEFT LOWER EXTREMITY STUMP, DRY AND INTACT, NO DRAINAGE. Musculoskeletal: Amputation of right leg and left leg. Injury Description: RIGHT CLAVICLE. Historical: - Allergies: 10:18 No Known Allergies; bm7 - PMHx: 10:18 CAD; DM; ESRD; HTN; AKA- BILATERAL; CHF- CHRONIC SYSTOLIC; bm7 - PSHx: 10:18 CABG; bm7 - Immunization history:: Adult Immunizations up to date. - Social history:: Smoking status: Patient/guardian denies using tobacco products. - Family history:: not pertinent. Screenin:23 Abuse screen: Denies threats or abuse. Nutritional screening: No deficits noted. bm7 Tuberculosis screening: No symptoms or risk factors identified. Fall Risk Fall in past 12 months (25 points). Assessment: 10:23 Reassessment: No changes from previously documented assessment. ERP AT BEDSIDE TO bm7 ASSESS. 10:25 Cardiovascular: Dialysis shunt: in the dorsal aspect of left forearm, with palpable bm7 thrill, with auscultated bruit, with no erythema, with no edema, no bleeding noted. 11:45 Reassessment: Patient is alert, oriented x 3, equal unlabored respirations, skin bm7 warm/dry/pink. informed patient and daughters that EMS might not be covered by insurance since he can sit up in bed. Patient and daughters verbalized understanding. Vital Signs: 10:15 BP 120 / 53; Pulse 56; Resp 16; Temp 98.1(TE); Pulse Ox 97% on R/A; Weight 86.18 kg bm7 (R); Height 5 ft. 9 in. (175.26 cm); Pain 8/10; 11:21 BP 112 / 61; Pulse 72; Resp 16; Pulse Ox 100% on R/A; Pain 3/10; bm7 10:15 Body Mass Index 28.06 (86.18 kg, 175.26 cm) bm7 [place] Coma Score: 10:23 Eye Response: spontaneous(4). Verbal Response: oriented(5). Motor Response: obeys bm7 commands(6). Total: 15. Trauma Score (Adult): 10:23 Eye Response: spontaneous(1); Verbal Response: oriented(1); Motor Response: obeys bm7 commands(2); Systolic BP: > 89 mm Hg(4); Respiratory Rate: 10 to 29 per min(4); Kan Score: 15; Trauma Score: 12 ED Course: 10:01 Patient arrived in ED. eb 10:03 Lio Lambert MD is Attending Physician. dajuan 10:13 Georgiana Meeks, RN is Primary Nurse. bm7 10:18 Triage completed. bm7 10:18 Arm band placed on left wrist. bm7 10:23 Patient has correct armband on for positive identification. Placed in gown. Bed in low bm7 position. Call light in reach. Side rails up X2. Client placed on continuous cardiac and pulse oximetry monitoring. NIBP monitoring applied. Warm blanket given. 10:[address] bm7 11:01 CT Head C Spine In Process Unspecified. EDMS 11:04 CT Chest Wo Con In Process Unspecified. EDMS 11:21 Patient moved back from radiology. bm7 11:29 Joni North MD is Referral Physician. dajuan 11:41 Sling applied to right arm. mb7 11:45 No apparent distress. Resting quietly. Awaiting transportation. bm7 11:45 No provider procedures requiring assistance completed. Patient did not have IV access bm7 during this emergency room visit. 11:51 Clavicle Right XRAY In Process Unspecified. EDMS Administered Medications: 10:38 Drug: [place] (HYDROcodone-acetaminophen) 10 mg-325 mg 1 tabs Route: PO; bm7 11:33 Follow up: Response: Pain is decreased bm7 Medication: 10:23 VIS not applicable for this client. bm7 Outcome: 11:32 Discharge ordered by . dajuan 11:45 Discharged to nursing facility bm7 11:45 Condition: improved 11:45 Discharge instructions given to patient, family, Instructed on discharge instructions, medication usage, Demonstrated understanding of instructions, follow-up care, medications. 12:07 Patient left the ED. bm7 Signatures: Dispatcher [employer] EDMS Lio Lambert MD MD cha Botello, Elizabeth eb McCarthy, Brittany, RN RN bm7 Yoon Lam 7
--- NOTE | 2022-03-20 11:32 | EDPHYS ---
Physician Documentation [facility] Name: Refugio Sylvester Age: 67 yrs Sex: Male : 1955 Arrival Date: 03/20/2022 Time: 10:01 Bed 10 Private MD: ED Physician Lio Lambert HPI: 03/20 10:21 This 67 yrs old Male presents to ER via EMS with complaints of fall out of [facility] bed, right shoulder. 10:21 The patient or guardian complains of decreased range of motion, pain, that is acute. [facility] right clavicle. Context: The problem was sustained at home, resulted from a fall, bed. Onset: The symptoms/episode began/occurred just prior to arrival. Modifying factors: the symptoms are alleviated by remaining still, The symptoms are aggravated by nothing. Associated signs and symptoms: The patient has no apparent associated signs or symptoms. The patient or guardian reports chest pain that is located primarily in the anterior chest wall. The pain does not radiate. Associated signs and symptoms: The patient has no apparent associated signs or symptoms. Historical: - Allergies: 10:18 No Known Allergies; bm7 - PMHx: 10:18 CAD; DM; ESRD; HTN; AKA- BILATERAL; CHF- CHRONIC SYSTOLIC; bm7 - PSHx: 10:18 CABG; bm7 - Immunization history:: Adult Immunizations up to date. - Social history:: Smoking status: Patient/guardian denies using tobacco products. - Family history:: not pertinent. ROS: 10:21 Constitutional: Negative for fever, chills, and weight loss, Eyes: Negative for injury, dajuan pain, redness, and discharge, ENT: Negative for injury, pain, and discharge, Neck: Negative for injury, pain, and swelling, Cardiovascular: Negative for chest pain, palpitations, and edema, Respiratory: Negative for shortness of breath, cough, wheezing, and pleuritic chest pain, Abdomen/GI: Negative for abdominal pain, nausea, vomiting, diarrhea, and constipation, Back: Negative for injury and pain, : Negative for injury, bleeding, discharge, and swelling, Skin: Negative for injury, rash, and discoloration, Neuro: Negative for headache, weakness, numbness, tingling, and seizure, Psych: Negative for depression, anxiety, suicide ideation, homicidal ideation, and hallucinations, Allergy/Immunology: Negative for hives, rash, and allergies. 10:21 MS/extremity: Positive for decreased range of motion, pain, tenderness, of the anterior aspect of right shoulder. Exam: 10:21 Constitutional: This is a well developed, well nourished patient who is awake, alert, dajuan and in no acute distress. Head/Face: Normocephalic, atraumatic. Eyes: Pupils equal round and reactive to light, extra-ocular motions intact. Lids and lashes normal. Conjunctiva and sclera are non-icteric and not injected. Cornea within normal limits. Periorbital areas with no swelling, redness, or edema. ENT: Nares patent. No nasal discharge, no septal abnormalities noted. Tympanic membranes are normal and external auditory canals are clear. Oropharynx with no redness, swelling, or masses, exudates, or evidence of obstruction, uvula midline. Mucous membranes moist. Neck: Trachea midline, no thyromegaly or masses palpated, and no cervical lymphadenopathy. Supple, full range of motion without nuchal rigidity, or vertebral point tenderness. No Meningismus. Chest/axilla: Normal chest wall appearance and motion. Nontender with no deformity. No lesions are appreciated. Cardiovascular: Regular rate and rhythm with a normal S1 and S2. No gallops, murmurs, or rubs. Normal PMI, no JVD. No pulse deficits. Respiratory: Lungs have equal breath sounds bilaterally, clear to auscultation and percussion. No rales, rhonchi or wheezes noted. No increased work of breathing, no retractions or nasal flaring. Abdomen/GI: Soft, non-tender, with normal bowel sounds. No distension or tympany. No guarding or rebound. No evidence of tenderness throughout. Back: No spinal tenderness. No costovertebral tenderness. Full range of motion. Male : Normal genitalia with no discharge or lesions. Skin: Warm, dry with normal turgor. Normal color with no rashes, no lesions, and no evidence of cellulitis. Neuro: Awake and alert, GCS 15, oriented to person, place, time, and situation. Cranial nerves II-XII grossly intact. Motor strength 5/5 in all extremities. Sensory grossly intact. Cerebellar exam normal. Normal gait. Psych: Awake, alert, with orientation to person, place and time. Behavior, mood, and affect are within normal limits. 10:21 Musculoskeletal/extremity: Extremities: grossly normal except: noted in the right supraclavicular area: decreased ROM, pain. Vital Signs: 10:15 BP 120 / 53; Pulse 56; Resp 16; Temp 98.1(TE); Pulse Ox 97% on R/A; Weight 86.18 kg bm7 (R); Height 5 ft. 9 in. (175.26 cm); Pain 8/10; 11:21 BP 112 / 61; Pulse 72; Resp 16; Pulse Ox 100% on R/A; Pain 3/10; bm7 10:15 Body Mass Index 28.06 (86.18 kg, 175.26 cm) bm7 [place] Coma Score: 10:23 Eye Response: spontaneous(4). Verbal Response: oriented(5). Motor Response: obeys bm7 commands(6). Total: 15. Trauma Score (Adult): 10:23 Eye Response: spontaneous(1); Verbal Response: oriented(1); Motor Response: obeys bm7 commands(2); Systolic BP: > 89 mm Hg(4); Respiratory Rate: 10 to 29 per min(4); Kan Score: 15; Trauma Score: 12 MDM: 10:03 Patient medically screened. [facility] 10:25 Differential diagnosis: tendonitis, Blunt Chest Trauma Chest Wall Contusion Chest Wall dajuan Injury. Data reviewed: vital signs, nurses notes, radiologic studies, CT scan, plain films. Data interpreted: vehicle monitor technician: rate is 56 beats/min, rhythm is regular, Pulse oximetry: on room air is 97 %. Test interpretation: by ED physician or midlevel provider: ECG, plain radiologic studies. Counseling: I had a detailed discussion with the patient and/or guardian regarding: the historical points, exam findings, and any diagnostic results supporting the discharge/admit diagnosis, lab results, radiology results, the need for outpatient follow up, for definitive care, an gum remover, a orthopedic surgeon. 03/20 10:15 Order name: CT Head C Spine; Complete Time: 11:28 [facility] 03/20 10:15 Order name: Clavicle Right XRAY [facility] 03/20 10:19 Order name: CT Chest Wo Con; Complete Time: 11: [facility] 03/20 10:20 Order name: Sling; Complete Time: 10:37 [facility] 03/20 10:20 Order name: Ice pack; Complete Time: 10:37 [facility] Administered Medications: 10:38 Drug: Raymond (HYDROcodone-acetaminophen) 10 mg-325 mg 1 tabs Route: PO; bm7 11:33 Follow up: Response: Pain is decreased bm7 Disposition Summary: 03/20/22 11:32 Discharge Ordered Location: Home dajuan Problem: new dajuan Symptoms: have improved dajuan Condition: Stable dajuan Diagnosis - Fracture of shaft of clavicle dajuan - Displaced fracture of shaft of right clavicle dajuan - Fall (on) (from) other stairs and steps - 2 FOOT, BED dajuan Followup: dajuan - With: Private Physician - When: 2 - 3 days - Reason: Recheck today's complaints, Continuance of care, Re-evaluation by your physician Followup: dajuan - With: Joni Norht MD - When: 2 - 3 days - Reason: Recheck today's complaints, Re-evaluation by your physician Discharge Instructions: - Discharge Summary Sheet dajuan - Elastic Bandage and RICE Therapy dajuan - Clavicle Fracture dajuan - Clavicle Fracture, [id number] dajuan - How to Use a Sling, [id number] dajuan - How to Use a Sling dajuan Forms: - Medication Reconciliation Form dajuan - Thank You Letter dajuan - Antibiotic Education dajuan - Prescription Opioid Use dajuan - SBAR form eb Prescriptions: - Tylenol-Codeine #3 300 mg-30 mg Oral - take 2 tablet by ORAL route every 6 hours; 20 tablet; Refills: 0, Product dajuan Selection Permitted Signatures: Dispatcher [employer] Lio Welch MD MD cha McCarthy, Brittany, RN RN bm7
--- NOTE | 2022-03-20 11:58 | RAD REPORT ---
EXAM DESCRIPTION: RAD - Clavicle Right - 03/20/2022 11:49 am CLINICAL HISTORY: fall COMPARISON: No comparisons FINDINGS/IMPRESSION: Mildly comminuted and displaced right mid clavicle fracture with approximately 1 full shaft width of displacement. No other fractures seen.
[2022-03-20 12:16] VITALS: TEMP 98.1
[2022-03-20 12:20] VITALS: BP 112/61; O2SAT 100
== END 2022-03-20 12:07 | disposition home or self-care (01) ==
LOC: ER 09:51
DX: S42.021A Displaced fracture of shaft of right clavicle, initial encounter for closed fracture (principal); W06.XXXA Fall from bed, initial encounter; E11.22 Type 2 diabetes mellitus with diabetic chronic kidney disease; I13.2 Hypertensive heart and chronic kidney disease with heart failure and with stage 5 chronic kidney disease, or end stage renal disease; I50.22 Chronic systolic (congestive) heart failure; N18.6 End stage renal disease; Z95.1 Presence of aortocoronary bypass graft
CPT/HCPCS: 70450; 71250; 72125; 99284

== ENCOUNTER 2022-03-28 11:10 | Emergency (ER) | payer OTHER ==
--- OUTSIDE RECORDS SUMMARY | 2022-03-28 11:32 | XMS REPORT | Continuity of Care Document ---
:1955 Author Organization [facility] t Address [address] [place] [address] Care Team Providers Name Role Phone Asked, No Pcp Primary Care Physician Unavailable JOSE ALFREDO PARKER Attending Clinician Unavailable MICHELLE NELSON Attending Clinician Unavailable MIROSLAVA HERNÁNDEZ Attending Clinician Unavailable LIVIA MITTAL Attending Clinician Unavailable Shayy ROGER, Mirela Lockwood Attending Clinician Enrike Khoury MD Attending Clinician Yulissa Vargas RN Attending Clinician Unavailable GIOVANNA RODRIGUEZ Attending Clinician Unavailable Giovanna Pacheco Attending Clinician ZORAIDA GALARZA JR Attending Clinician Unavailable Michell Araujo MD, Zoraida Hardin Attending Clinician Joshua Martinez DO Attending Clinician Edgar FARLEY, Miroslava Cho Attending Clinician Keith RODRIGUEZ Jose Alfredo R Attending Clinician Eber Nguyen Attending Clinician Unavailable EDDIE FANG Attending Clinician Unavailable LAURA TRINIDAD Attending Clinician Unavailable Doctor Unassigned, [place] Attending Clinician Unavailable Hiro FARLEY, Yadiel Blum Attending Clinician Tabby Gutierrez MD Attending Clinician Transplant, Kidney Attending Clinician Unavailable MAHIN MILNER M.D. Attending Clinician Unavailable VASCULAR, YOUNG Attending Clinician Unavailable BEBETO BARRON Attending Clinician Unavailable ZORAIDA GALARZA JR Admitting Clinician Unavailable Michell Araujo MD, Zoraida Hardin Admitting Clinician Benito Meyers Admitting Clinician Unavailable LAURA TRINIDAD Admitting Clinician Unavailable BEBETO BARRON Admitting Clinician Unavailable Payers Payer Name Policy Type Policy Number Effective Date Expiration Date Yasmin PALENCIA/[facility] [id number] 2021 MEDICARE GOLD PPO 00:00:00 CSNP Problems Condition Condition Condition Status Onset Resolution Last Treating Co mments Source Name Details Category Date Date Treatment Clinician Date 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 Atrial Atrial Disease Active Univers thrombus thrombus 5-16 ity of 00:00: [place] 00 [facility] Atrial Atrial Disease Active Univers fibrillati fibrillati 5-16 it y of on on 00:00: [place] [facility] Heart Heart Disease Active Univers failure failure 4-06 ity of 00:00: [place] 00 Medical Branch NSTEMI NSTEMI Disease Active Overview: Univer s (non-ST (non-ST 406 Formattin ity o f elevated elevated 00:00: g of this [place] as myocardial myocardial 00 note Me dical infarction infarction might be Branch ) ) different from the original. Added automatic ally from request for surgery [id number] PAD PAD Disease Active Univers (periphera (periphera 2-14 it y of l artery l artery 00:00: [place] disease) disease) 00 Medica l Branch SOB SOB Diagnosis Active 2020-12-10 Mem oria Active 12-10 10:37:00 l 12/10/2020 04:00: Bob jolley [facility] [address] [place] CHEST CHEST Diagnosis Active 2020-12-12 Mem oria PAIN, PAIN, 12-10 12:48:00 l SHORTNESS SHORTNESS 04:00: Herm shelbie OF BREATH OF BREATH 00 Active 12/10/2020 [facility] Obesity Obesity Disease Active Univers (BMI (BMI 2-12 ity of 30-39.9) 30-39.9) 00:00: [place] 00 Medical Branch Anticoagul Anticoagul Disease Active Overview : Univers ation ation 1-09 Formattin ity of management management 00:00: g of this [place] encounter encounter 00 note Medi ashley might be Branch different from the original. Added automatic ally from request for surgery [id number] Caries Caries Disease Active 2017-08 Overview: Univer s 2 Formattin ity of 00:00: g of this [place] 00 note Medical might be Branch different from the original. Added automatic ally from request for surgery [id number] ESRD (end ESRD (end Disease Active 2017-08 Uni vers stage stage 2-27 ity of renal renal 00:00: [place] disease) disease) 00 Medica l Branch PERIPHERAL Diagnosis Active 2018-01-10 Memoria STENT PERIPHERAL 12-16 06:46:00 l STENT 00:00: [place] Active 00 12/16/2017 [facility] UNK UNK Diagnosis Active 2017-12-18 Mem oria Active 11-05 15:48:00 l 11/05/2017 00:00: Bob jolley [facility] 00 David Jayde FARLEY MD Diagnosis Active 2017-10-19 Mem oria REFERRAL REFERRAL 10-19 21:09:00 l Active 00:00: David 10/19/2017 00 [facility] DIALYSIS DIALYSIS Diagnosis Active 2017-10-20 Memoria AV FISTULA AV FISTULA 10-19 14:44:00 l MALFUNCTIO MALFUNCTIO 00:00: He amy N N Active 00 10/19/2017 [facility] STOMACHE STOMACHE Diagnosis Active 2016-082017-08-11 Memoria ACHE ACHE 10-11 01:02:00 l Active 00:00: David 08/10/2017 00 [facility] ACUTE CHF ACUTE CHF Diagnosis Active 2016-082017-06-25 Memoria Active 08-24 15:19:00 l 06/24/2017 00:00: Bob jolley [address] CHRONIC CHRONIC Diagnosis Active 2016-082017-06-10 [facility] KIDNEY KIDNEY 0-16 10:11:00 l DISEASE DISEASE 00:00: [place] STAGE V STAGE V 00 Active 06/07/2017 [facility] COUGH, EYE COUGH, Diagnosis Active 2016-12-06 [place] PAIN EYE PAIN 4-16 22:18:00 l Active 00:00: David 12/06/[address] [place] [address] TROUBLE TROUBLE Diagnosis Active 2016-11-10 [facility] BREATHING BREATHING 3-20 00:49:00 l Active 00:00: David 11/09/2016 00 [facility] S/P CABG x S/P CABG x Disease Active M ethodi 3 3 05-03 00:00: Hospita 00 l Postoperat Postoperat Disease Active M ethodi em anemia em anemia 05-01 due to due to 00:00: Hospita acute acute 00 l blood loss blood loss Cardiogeni Cardiogeni Disease Active M ethodi c shock c shock 05-01 00:00: Hospita 00 l Postoperat Postoperat Disease Active M ethodi em pain em pain 05-01 00:00: Hospita 00 l Acute Acute Disease Active Methodi respirator respirator 05-01 y y 00:00: Hospita insufficie insufficie 00 l ncy, ncy, postoperat postoperat em em Closed Closed Disease Active Methodi fracture fracture 04-27 st of of 00:00: Hospita multiple multiple 00 l ribs of ribs of left side left side Hematoma Hematoma Disease Active Metho di 04-27 st 00:00: Hospita 00 l Congestive Congestive Disease Active 2014-08 U nivers heart heart 0-02 ity of failure failure 00:00: [place] (CHF) (CHF) 00 Medical Branch CHF CHF Disease Active 2014-08 Univers (congestiv (congestiv 0-01 it y of e heart e heart 00:00: [place] failure) failure) 00 Medica l Branch History of History of Problem Resolve [place] congestive congestive d Ph ysici heart heart ans failure failure History of History of Problem Resolve [place] diabetes diabetes d Physic i mellitus mellitus ans History of History of Problem Resolve [facility] Physici cholestero cholestero an s l l History of History of Problem Resolve [place] hypertensi hypertensi d Ph ysici on on ans History of History of Problem Resolve [place] myocardial myocardial d Ph ysici infarction infarction an s History of History of Problem Resolve UT Stage 5 Stage 5 d Physici chronic chronic ans kidney kidney disease disease not on not on chronic chronic dialysis dialysis Chronic Chronic Problem 2018-02-23 M emoria total total 14:36:33 l occlusion occlusion Herm shelbie of artery of artery [facility] 02/23/2018 [facility] 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:36:33 l aorta aorta [place] 02/23/2018 [facility] Other Other Problem 2018-02-23 Memor ia specified specified 14:36:33 l diabetes diabetes Bob n mellitus mellitus with with diabetic diabetic chronic chronic kidney kidney disease disease 02/23/2018 [facility] Hypertensi Hypertens Problem 2018-02-23 Memoria ve heart em heart 14:36:33 l and and David chronic chronic kidney kidney disease disease with heart with heart failure failure and with and with stage 5 stage 5 chronic chronic kidney kidney disease, disease, or end or end stage stage renal renal disease disease 02/23/2018 Kemal Romo [facility] Chronic Chronic Problem 2018-02-23 M emoria diastolic diastolic 14:36:33 l (congestiv (congestiv He rmann e) heart e) heart failure failure 02/23/2018 [facility] End stage End stage Problem 2018-02-23 Memoria renal renal 14:36:33 l disease disease [place] 02/23/2018 Kemal Nath [facility] Dependence Dependenc Problem 2018-02-23 Memoria on renal e on renal 14:36:33 l dialysis dialysis Bob n 02/23/2018 Kemal Nath [facility] Mixed Mixed Problem 2018-02-23 Memor ia hyperlipid hyperlipid 14:36:33 l emia emia David 02/23/2018 [facility] Atheroscle Atheroscl Problem 2018-02-23 Memoria rotic erotic 14:36:33 l heart heart David disease of disease of andreafski andreafski coronary coronary artery artery without without angina angina pectoris pectoris 02/23/2018 Kemal Nath [facility] Presence Presence Problem 2018-02-23 Memoria of of 14:36:33 l aortocoron aortocoron He rmann liliam bypass liliam bypass graft graft 02/23/2018 Kemal Nath [facility] terminal clerk terminal clerk Problem 2018-02-23 Memoria (current) (current) 14:36:33 l use of use of [place] oral oral hypoglycem hypoglycem ic drugs ic drugs 02/23/2018 [facility] terminal clerk [facility] Problem 2018-02-23 Memoria (current) (current) 14:36:33 l use of use of [place] aspirin aspirin 02/23/2018 [facility] Long Problem 2018-02-23 Me moria (current) term 14:36:33 l use of (current) David antithromb use of otics/anti antithromb platelets otics/anti platelets 02/23/2018 [facility] Other long Other Problem 2018-02-23 M emoria term chcf 14:36:33 l (current) (current) Herm shelbie drug drug therapy therapy 02/23/2018 [facility] Unspecifie Unspecifi Problem 2018 Memoria d ed 15:05:35 l diastolic diastolic Herm shelbie (congestiv (congestiv e) heart e) heart failure failure 2018 [facility] 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 15:05:35 l mellitus mellitus Bob n with with diabetic diabetic chronic chronic kidney kidney disease disease 2018 [facility] terminal clerk terminal clerk Problem 2018 Memoria (current) (current) 15:05:35 l use of use of [place] insulin insulin 2018 [facility] 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 15:05:35 l mellitus mellitus Bob n with with diabetic diabetic peripheral peripheral angiopathy angiopathy without without gangrene gangrene 2018 [facility] Hyperlipid Hyperlipi Problem 2018 Memoria emia, demia, 15:05:35 l unspecifie unspecifie He rmann d d 2018 [facility] Obesity, Obesity, Problem 2018 Memoria unspecifie unspecifie 15:05:35 l d d [place] 2018 [facility] Body mass Body mass Problem 2018 Memoria index index 15:05:35 l (BMI) (BMI) [place] 32.0-32.9, 32.0-32.9, adult adult 2018 [facility] Chronic Chronic Problem Active 2020-12-16 Me moria kidney kidney 07:38:26 l disease disease David (disorder) (disorder) Active Problem 12/16/2020 [facility], [place], [facility] Diabetes Diabetes Problem Active 2020-12-16 Memoria mellitus mellitus 07:38:26 l (disorder) (disorder) He rmann Active Problem 12/16/2020 [facility], [facility], [facility] End stage End stage Problem Active 2020-12-16 Memoria renal renal 07:38:26 l failure on failure on He rmann dialysis dialysis (disorder) (disorder) Active Problem 12/16/2020 [facility] Diabetes Diabetes Problem Active 2020-12-16 Memoria mellitus mellitus 07:38:26 l type 2 type 2 [place] (disorder) (disorder) Active Problem 12/16/2020 [facility] CHEST CHEST Diagnosis Active 2020-12-12 Mem oria PAIN, PAIN, 12:48:00 l UNSPECIFIE UNSPECIFIE He rmann D D Active [facility] SHORTNESS SHORTNESS Diagnosis Active 2020-12-12 Memoria OF BREATH OF BREATH 12:48:00 l Active [facility] HEART HEART Diagnosis Active 2017-06-25 Mem oria FAILURE, FAILURE, 15:19:00 l UNSPECIFIE UNSPECIFIE He rmann D D Active [facility] DM w/o DM w/o Disease Active Univers complicati complicati it y of on type II on type II [place] [facility] [place] HTN HTN Disease Active Univers (hypertens (hypertens it y of ion) ion) [facility] Dyslipidem Dyslipidem Disease Active U nivers ia ia ity of [facility] Retinopath Retinopath Disease Active Overview : Univers y y Formattin ity of g of this [place] note Medical might be Branch different from the original. bilateral ly Neuropathy Neuropathy Disease Active U nivers ity of [facility] CAD CAD Disease Active Univers (coronary (coronary ity of artery artery [place] disease) disease) Medica l Branch PVD PVD Disease Active Univers (periphera (periphera it y of l vascular l vascular [place] disease) disease) Medica l Branch History of History Problem Resolve 2020-12-16 2020-12-16 Memoria - coronary of - d 05-08 07:38:26 07:38:26 l artery coronary 00:00: [place] bypass artery 00 grafting bypass (context-d grafting ependent (context-d category) ependent category) Resolved 05/08/2016 Problem 12/16/2020 [facility], Kemal Nath [facility], [facility] History of Past Illness Condition Condition Condition Status Onset Resolution Last Treating Co mments Source Name Details Category Date Date Treatment Clinician Date Atheroscle Problem 2018-02-23 2018-02-23 Memoria rosis of Atheroscle 11-27 14:36:33 14:36:33 l andreafski rosis of 03:49: [place] arteries andreafski 61 of arteries extremitie of s with extremitie intermitte s with nt intermitte claudicati nt on, claudicati bilateral on, legs bilateral legs 11/27/2017 8 [facility] Breakdown Breakdown Problem 2018 2018 Memoria (mechanica (mechanica 10-28 15:05:35 15:05:35 l l) of l) of 04:44: [place] other other 37 vascular vascular grafts, grafts, initial initial encounter encounter 10/28/2017 2018 [facility] Unspecifie Unspecifi Problem 2016-082017-08-142017-08-14 Memoria d ed 10-12 04:28:01 04:28:01 l abdominal abdominal 06:00: [place] morfin pain pain 00 08/11/2017 08/14/2017 [facility] Cough Cough Problem 2016-2016-12-10 2016-12-10 M emoria 12/07/201612-07 02:36:07 02:36:07 l 12/10/2016 05:00: Bob jolley 00 [facility] Acute Acute Problem 2016-12-10 2016-12-10 M emoria upper upper 12-07 02:36:07 02:36:07 l respirator respirator 05:00: He rmann y y 00 infection, infection, unspecifie unspecifie d d 12/07/2016 12/10/2016 [facility] Shortness Shortness Problem 2016-11-13 2016-11-13 Memoria of breath of breath 11-10 02:59:55 02:59:55 l 11/10/2016 05:00: Bob jolley 11/13/2016 00 [facility] Allergies, Adverse Reactions, Alerts Allergy Allergy Status Severity Reaction(s) Onset Inactive Treating Comm ents Source Name Type Date Date Clinician No Known DA Active U 2020-08 [facility]- [place] [facility] 00:[facility]: d 00 [facility] No Known DA Active U 2019-08 [facility] Allergie 2- [place] 00:00: d 00 [facility] No Known DA Active U 2019- [facility] Allergie 2-28 [place] 00:00: d 00 [facility] NO KNOWN Drug Active Univers ALLERGIE Class ity of S [facility] Family History Family Member Diagnosis Comments Start Date Stop Date Source Natural father Coronary artery [facility] disease Natural father [facility] Natural [facility] Hy[facility] Natural mother Coronary artery [facility] disease Natural mother [facility] Natural mother Hypertension [facility] Social History Social Habit Start Date Stop Date Quantity Comments Source Exposure to 2022-02-11 2022-02-21 Not sure University of SARS-CoV-2 00:00:00 17:07:00 [facility] (event) Branch Tobacco use and 2021-09-15 2021-09-15 Smokeless tobacco Un iversity of exposure 00:00:00 00:00:00 non-user [facility] Social History 2016-12-07 2016-12-07 [facility] Almas mcfarland 02:53:03 02:53:03 Alcohol intake 2016-05-07 2016-05-[address] [facility] 00:00:00 00:00:00 non-drinker of alcohol (finding) Sex Assigned At [address] [facility] 00:00:00 00:00:00 Smoking Status Start Date Stop Date Source Never smoked tobacco [facility] Medications Ordered Filled Start Stop Current Ordering Indication Dosage Frequency Signature Comments Components Source Medication Medication Date Date Medication? Clinician (SIG) Name Name enoxaparin No 1mg/kg 80 mg Uni vers (LOVENOX) 03-11 (rounded ity o f injection 20:36: 20:57 [place].5 [place] 80 mg 00 :00 mg = 1 Medical mg/kg Branch ?82.5 kg), Subcutaneo us, ONCE, 1 dose, On Wed03/11/22 at 1545, Routine gabapentin 0 Yes 300mg Take 300 Un sia 300 mg 7-20 mg by ity of capsule 19:18: mouth [address] [place] [address] ([facility]) Medical times [place] daily. clopidogreL Yes 75mg Take 75 mg Univers (PLAVIX) 75 7-20 by mouth ity of mg tablet 19:18: daily. [address] glipiZIDE Yes 10mg Take 10 mg Un sia 10 mg 7-20 by mouth ity of tablet 19:18: daily. [address] vitamin C 0 Yes 1000mg Take 1,000 Univers with lazaro 7-20 mg by ity of hips 19:18: mouth [place] (VITAMIN C) 04 daily. Medica l 1,000 mg Branch tablet Zinc 50 mg 2021- Yes Take by Univ ers Tab 7-20 mouth. ity of 19:18: [address] gabapentin 2021-0 Yes 300mg Take 300 Un sia 300 mg 7-20 mg by ity of capsule 19:18: mouth [address] [place] [address] (three) Medical times [place] daily. clopidogreL 2021-0 Yes 75mg Take 75 mg Univers (PLAVIX) 75 7-20 by mouth ity of mg tablet 19:18: daily. [address] glipiZIDE 2022-0 Yes 10mg Take 10 mg Un sia 10 mg 7-20 by mouth ity of tablet 19:18: daily. [address] vitamin C 2-0 Yes 1000mg Take 1,000 Univers with lazaro 7-20 mg by ity of hips 19:18: mouth [place] (VITAMIN C) 04 daily. Medica l 1,000 mg Branch tablet Zinc 50 mg 2021-0 Yes Take by Univ ers Tab 7-20 mouth. ity of 19:18: [address] gabapentin 2-0 Yes 300mg Take 300 Un sia 300 mg 7-20 mg by ity of capsule 19:18: mouth [address] [place] [address] (three) Medical times [place] daily. clopidogreL 2022-0 Yes 75mg Take 75 mg Univers (PLAVIX) 75 7-20 by mouth ity of mg tablet 19:18: daily. [address] glipiZIDE 2021-0 Yes 10mg Take 10 mg Un sia 10 mg 7-20 by mouth ity of tablet 19:18: daily. [address] vitamin C 2021-0 Yes 1000mg Take 1,000 Univers with lazaro 7-20 mg by ity of hips 19:18: mouth [place] (VITAMIN C) 04 daily. Medica l 1,000 mg Branch tablet Zinc 50 mg 2021-0 Yes Take by Univ ers Tab 7-20 mouth. ity of 19:18: [address] gabapentin 2-0 Yes 300mg Take 300 Un sia 300 mg 7-20 mg by ity of capsule 19:18: mouth [address] [place] [address] (three) Medical times [place] daily. clopidogreL 2022-0 Yes 75mg Take 75 mg Univers (PLAVIX) 75 7-20 by mouth ity of mg tablet 19:18: daily. [address] glipiZIDE 2-0 Yes 10mg Take 10 mg Un sia 10 mg 7-20 by mouth ity of tablet 19:18: daily. [address] vitamin C 2-0 Yes 1000mg Take 1,000 Univers with lazaro 7-20 mg by ity of hips 19:18: mouth [place] (VITAMIN C) 04 daily. Medica l 1,000 mg Branch tablet Zinc 50 mg 2-0 Yes Take by Univ ers Tab 7-20 mouth. ity of 19:18: [address] gabapentin 2-0 Yes 300mg Take 300 Un sia 300 mg 7-20 mg by ity of capsule 19:18: mouth [address] [place] [address] (three) Medical times Branch daily. clopidogreL Yes 75mg Take 75 mg Univers (PLAVIX) 75 7-20 by mouth ity of mg tablet 19:18: daily. [address] Branch glipiZIDE Yes 10mg Take 10 mg Un sia 10 mg 7-20 by mouth ity of tablet 19:18: daily. [address] vitamin C Yes 1000mg Take 1,000 Univers with lazaro 7-20 mg by ity of hips 19:18: mouth [place] (VITAMIN C) 04 daily. Medica l 1,000 mg Branch tablet Zinc 50 mg Yes Take by [facility] ers Tab 7-20 mouth. ity of 19:18: [address] HYDROcodone 2021- Yes [id number] 1{tbl} Take 1 U nivers -acetaminop 7-20 07-28 tablet by it y of hen 5-325 00:00: 04:59 mouth [place] mg tablet 00 :00 every 6 Medical (six) Branch hours as needed for Pain (scale 4-6) or Pain (scale 7-10) for up to 7 days. Indication s: acute pain HYDROcodone 2021- Yes [id number] 1{tbl} Take 1 U nivers -acetaminop 7-20 07-28 tablet by it y of hen 5-325 00:00: 04:59 mouth [place] mg tablet 00 :00 every 6 Medical (six) Branch hours as needed for Pain (scale 4-6) or Pain (scale 7-10) for up to 7 days. Indication s: acute pain HYDROcodone 2021- Yes [id number] 1{tbl} Take 1 U nivers -acetaminop 7-20 07-28 tablet by it y of hen 5-325 00:00: 04:59 mouth [place] mg tablet 00 :00 every 6 Medical (six) Branch hours as needed for Pain (scale 4-6) or Pain (scale 7-10) for up to 7 days. Indication s: acute pain enoxaparin 2021- Yes [id number] 80mg inject 0.8 Univers 80 mg/0.8 7-20 07-26 mL under ity o f mL 00:00: 04:59 the skin [place] injection 00 :00 every 12 Medica l (twelve) Branch hours for 5 days. enoxaparin 2021- Yes [id number] 80mg inject 0.8 Univers 80 mg/0.8 03-11 07-26 mL under ity o f mL 00:00: 04:59 the skin [place] injection 00 :00 every 12 Medica l (twelve) Branch hours for 5 days. enoxaparin 2021- Yes [id number] 80mg inject 0.8 Univers 80 mg/0.8 03-11-26 mL under ity o f mL 00:00: 04:59 the skin [place] injection 00 :00 every 12 Medica l (twelve) Branch hours for 5 days. warfarin Yes 5mg 5 mg, Univers (COUMADIN) 03-10 Oral, ity of tablet 5 mg 22:00: [place]ILY AT [place] 00 1700, Medical First dose Branch (after last modificati on) on Wed03/10/22 at 1700, Until Discontinu ed, Routine
INR Goal Range: 2-3
IND ICATION (More than one indication for warfarin can be selected): Atrial fibrillati on/flutter epoetin 2021- No [id number] 10,000 [facility] 03-10 Units, ity of (RETACRIT) 13:30: 13:50 Slow IV Thien as injection 00 :00 Push, Medical 10,000 DIALYSIS Branch Units ONCE - EDUARDO DSU, 1 dose, On Wed03/10/22 at 0830, Routine
Facult y member approving Restricted medication : JANEL SALAS lidocaine 2021- No .3mL 0.3 mL, Univ ers 1% (PF) 03-10 Infiltrati ity o f (XYLOCAINE) 13:30: 13:40 on, ONCE, [place] injection 00 :00 1 dose, On Medi ashley 0.3 mL Branch 03/10/22 at 0830, Routine warfarin 2021- No 4mg 4 mg, Univers (COUMADIN) 03-09 Oral, ity of tablet 4 mg 22:00: 21:16 DAILY AT [place] 00 :03 1700, Medical First dose Branch on 03/09/22 at 1700, Until Discontinu ed, Routine
INR Goal Range: 2-3
IND ICATION (More than one indication for warfarin can be selected): Atrial fibrillati on/flutter epoetin 2021- No [id number] 10,000 Unive rs sudhir-epbx 03-07-16 Units, ity of (RETACRIT) 12:15: 14:24 Slow IV Thien as injection 00 :00 Push, Medical 10,000 DIALYSIS Branch Units ONCE - EDUARDO DSU, 1 dose, On 03/07/22 at 0715, Routine
Facult y member approving Restricted medication : JANEL SALAS MARICRUZ epoetin 2021- No [id number] 10,000 Unive rs sudhir-epbx 03-05-14 Units, ity of (RETACRIT) 13:30: 14:03 Slow IV Thien as injection 00 :00 Push, Medical 10,000 DIALYSIS Branch Units ONCE - EDUARDO DSU, 1 dose, On Shaniqua 03/05/22 at 0830, Routine
Facult y member approving Restricted medication : MARITZA, JANEL MARICRUZ NaCl 0.9% 2021- No 5mL 5 mL, Slow U nivers (NS) 03-05 IV Push, ity of injection 5 13:30: 14:03 ONCE, 1 [place] mL 00 :00 dose, On Medical [place] Branch 03/05/22 at 0830, Routine mupirocin Yes Nasal, Univer s (BACTROBAN 03-05 Q12H, For ity of NASAL OINT) 13:28: 5 days, Thien as 2 % nasal 19 First dose Medi ashley ointment conditiona Branc h l, Routine heparin Yes 2000U PRN - SEE Univ ers 1,000 03-05 INSTRUCTIO ity of unit/mL 13:28: NS, [place] injection 17 Starting Medica l 2,000 Units on Shaniqua Branch 03/05/22 at 0828, Until Discontinu ed, Routine
For Priming of Ports:&nbs p; &n bsp; After initial saline flush, prime each port with heparin according to the priming volume listed on each catheter port for catheter lock.
methocarbam 2021- Yes [id number] 500mg Take 1 [facility] oL 500 mg 03-05 tablet by ity of tablet 00:00: 04:59 mouth 4 [place] 00 :00 (four) Medical times Branch daily for 14 days. methocarbam 2021- Yes [id number] 500mg Take 1 [facility] oL 500 mg 03-05 tablet by ity of tablet 00:00: 04:59 mouth 4 [place] 00 :00 (four) Medical times Branch daily for 14 days. methocarbam 2021- Yes [id number] 500mg Take 1 [facility] oL 500 mg 03-05 tablet by ity of tablet 00:00: 04:59 mouth 4 [place] 00 :00 ([facility]) Medical times Branch daily for 14 days. methocarbam 2021- Yes [id number] 500mg Take 1 [facility] oL 500 mg 03-05 tablet by ity of tablet 00:00: 04:59 mouth 4 [place] 00 :00 ([facility]) Medical times Branch daily for 14 days. methocarbam 2021- Yes [id number] 500mg Take 1 [facility] oL 500 mg 03-05 tablet by ity of tablet 00:00: 04:59 mouth 4 [place] 00 :00 ([facility]) Medical times Branch daily for 14 days. epoetin 2021- No [id number] 10,000 Unive rs sudhir-epbx 03-03-12 Units, ity of (RETACRIT) 13:45: 15:04 Slow IV [place] injection 00 :00 Push, Medical 10,000 DIALYSIS Branch Units ONCE - EDUARDO DSU, 1 dose, On Wed03/03/22 at 0845, Routine
Facult y member approving Restricted medication : JANEL SALAS methocarbam Yes 500mg 500 mg, Un sia oL - Oral, QID, ity of (ROBAXIN) 19:30: First dose [place] tablet 500 00 on Mon Medical mg 03/02/22 at Branch 1430, Until Discontinu ed, Routine warfarin No 5mg 5 mg, Univers (COUMADIN) 03-0116 Oral, ity of tablet 5 mg 22:00: 15:17 DAILY AT [place] 00 :42 1700, Medical First dose Branch on 03/01/22 at 1700, Until Discontinu ed, Routine
INR Goal Range: 2-3
IND ICATION (More than one indication for warfarin can be selected): Atrial fibrillati on/flutter epoetin 2021- No [id number] 10,000 Unive rs sudhir-epbx 02-28 Units, ity of (RETACRIT) 13:45: 14:01 Slow IV [place] injection 00 :00 Push, Medical 10,000 DIALYSIS Branch Units ONCE - EDUARDO DSU, 1 dose, On 02/28/22 at 0845, Routine
air crew member approving Restricted medication : MARITZA, JANEL MARICRUZ NaCl 0.9% No 5mL 5 mL, Slow U nivers (NS) 02-28 IV Push, ity of injection 5 13:45: 13:45 ONCE, 1 [place] mL 00 :00 dose, On Medical 02/28/22 Branch at 0845, Routine mupirocin Yes Nasal, Univer s (BACTROBAN 02-28 Q12H, For ity of NASAL OINT) 13:36: 5 days, [place] 2 % nasal 10 First dose Medi ashley ointment conditiona Branc h l, Routine heparin Yes 2000U PRN - SEE Univ ers 1,000 02-28 INSTRUCTIO ity of unit/mL 13:36: NS, [place] injection 07 Starting Medica l 2,000 Units on Sat Branch 02/28/22 at 0836, Until Discontinu ed, Routine
For Priming of Ports:&nbs p; &n bsp; After initial saline flush, prime each port with heparin according to the priming volume listed on each catheter port for catheter lock.
calcium 2021- No 2g 2 g, IV Univer s gluconate 2 02-28 Infusion, it y of g in NaCl 10:00: 10:16 ONCE, 1 [place] 100 mL 00 :00 dose, On Medical (ISO-OSM) 02/28/22 Bran ch RTU IV at 0500, infusion 2 STAT g dextrose 2021- No 250mL 250 mL, IV U nivers 10% (D10W) 02-28 Infusion, ity of bolus 10:00: 11:17 ONCE, [place] infusion 00 :00 Administer Medic al 250 mL over 30 Branch Minutes, On 02/28/22 at 0500, For 1 dose
De xtrose 10% 250 mL bag contains:& nbsp;10 gm = 100 mL 20 gm = 200 mL 25 gm = 250 mL (whole bag) The maximum rate at which dextrose can be infused without producing glycosuria is 0.5 g/kg/hour. &nbs p;BUD: If wrapper is open bag is good for 30 days at room temperatur e. <b r> insulin 2021- No 8U 8 Units, Unive rs regular 02-28 Slow IV ity of human 10:00: 11:01 Push, [place] (HUMULIN R) 00 :00 ONCE, 1 Medic al injection 8 dose, On Bran ch Units 02/28/22 at 0500, STAT sodium 2021- No 15g 15 g, Univers polystyrene 02-28 Oral, ity of sulfonate 10:00: 10:16 ONCE, 1 [place] (KAYEXALATE 00 :00 dose, On Medi ashley ) 15 02/28/22 Branch gram/60 mL at 0500, suspension STAT 15 g furosemide 2021- No 100mg 100 mg, Un sia (LASIX) 02-28 Slow IV ity of injection 10:00: 10:22 Push, [place] 100 mg 00 :00 ONCE, 1 Medical dose, On Branch 02/28/22 at 0500, STAT sennosides Yes 8.6mg 8.6 mg, Uni vers (SENOKOT) 02-27 Oral, ity of tablet 8.6 14:00: DAILY, [place] mg 00 First dose Medical on Wed Branch 02/27/22 at 0900, Until Discontinu ed, Routine docusate 2021-0 Yes 100mg 100 mg, Unive rs (COLACE) 7-08 Oral, ity of capsule 100 14:00: DAILY, [place] mg 00 First dose Medical on Wed Branch 02/27/22 at 0900, Until Discontinu ed, Routine sennosides 2021-0 Yes 8.6mg 8.6 mg, Uni vers (SENOKOT) 708 Oral, ity of tablet 8.6 14:00: DAILY, [place] mg 00 First dose Medical on Wed Branch 02/27/22 at 0900, Until Discontinu ed, Routine docusate 2021-0 Yes 100mg 100 mg, Unive rs (COLACE) 7 Oral, ity of capsule 100 14:00: DAILY, [place] mg 00 First dose Medical on Wed Branch 02/27/22 at 0900, Until Discontinu ed, Routine FENTanyl 2021-0 Yes 1000ug IV Univers RESTAURANT ATTENDANT 1,000 02-26 Infusion, ity o f mcg in NaCl 21:15: CONTINUOUS [place] 0.9%(NS) 00 , Starting Medic al 100 mL RTU on [place] Branch 02/26/22 at 1615, Until Discontinu ed, Routine FENTanyl 0 2021- No 1000ug IV Univer s RESTAURANT ATTENDANT 1,000 02-26 Infusion, ity of mcg in NaCl 21:15: 15:02 CONTINUOUS [place] 0.9%(NS) 00 :45 , Starting Medic al 100 mL RTU on [place] Branch 02/26/22 at 1615, Until 03/09/22 at 1002, Routine naloxone 0 Yes .1mg 0.1 mg, Univer s (NARCAN) 02-26 Slow IV ity of injection 20:09: Push, [place] 0.1 mg 14 SEE-INSTRU Medical CTIONS, Branch Starting on [place] 02/26/22 at 1509, Until Discontinu ed, Routine FENTanyl 0 Yes Slow IV Univer s (SUBLIMAZE) 02-26 Push, ity of 50 mcg/mL 20:09: Routine [place] Load & 14 Medical Rescue dose Branch naloxone 2021-0 Yes .1mg 0.1 mg, Univer s (NARCAN) 02-26 Slow IV ity of injection 20:09: Push, [place] 0.1 mg 14 SEE-INSTRU Medical CTIONS, Branch Starting on [place] 02/26/22 at 1509, Until Discontinu ed, Routine FENTanyl Yes Slow IV Univer s (SUBLIMAZE) 02-26 Push, ity of 50 mcg/mL 20:09: Routine [place] Load & 14 Medical Rescue dose Branch mupirocin Yes Nasal, Univer s (BACTROBAN 7-07 Q12H, For ity of NASAL OINT) 16:34: 5 days, [place] as 2 % nasal 47 First dose Medi ashley ointment conditiona Branc h l, Routine mupirocin Yes Nasal, Univer s (BACTROBAN 7-07 Q12H, For ity of NASAL OINT) 16:34: 5 days, [place] as 2 % nasal 47 First dose Medi ashley ointment conditiona Branc h l, Routine dextrose Yes 250mL 250 mL, IV Un sia 10% (D10W) 02-26 Infusion, ity of bolus 16:07: PRN - SEE [place] infusion 52 INSTRUCTIO Medic al 250 mL NS, Branch Administer over 60 Minutes, Other, If blood glucose is < or = 70 mg/dL and patient is unable to swallow or has mental status changes, Starting on [place]iqu[place] 02/26/22 at 1107
If blood glucose is < or = 70 mg/dL and patient is unable to swallow or has mental status changes (Give glucagon order if patient needs fluid restrictio n): IF IV access available: Dextrose 10%. 1. 125 mL (? bag) of D10W IV infusion - equivalent to 12.5 g dextrose 2. Blood glucose - draw blood glucose 15 minutes after D10W Administra tion. 3. If blood glucose is < 80 mg/dL, repeat.
dextrose 2021- Yes 250mL 250 mL, IV Un sia 10% (D10W) - Infusion, ity of bolus 16:07: PRN - SEE [place] infusion 52 INSTRUCTIO Medic al 250 mL NS, Branch Administer over 60 Minutes, Other, If blood glucose is < or = 70 mg/dL and patient is unable to swallow or has mental status changes, Starting on [place] 02/26/22 at 1107
If blood glucose is < or = 70 mg/dL and patient is unable to swallow or has mental status changes (Give glucagon order if patient needs fluid restrictio n): IF IV access available: Dextrose 10%. 1. 125 mL (? bag) of D10W IV infusion - equivalent to 12.5 g dextrose 2. Blood glucose - draw blood glucose 15 minutes after D10W Administra tion. 3. If blood glucose is < 80 mg/dL, repeat.
glucagon 2021-0 Yes 1mg 1 mg, Univers (GLUCAGEN 02-26 Intramuscu ity of DIAGNOSTIC 16:07: lar, PRN, [place] KIT) 18 Starting Medical injection [address] [facility] [place] 02/26/22 at 1107, Until Discontinu ed, TREVOR, Blood Glucose < or = 70 mg/dL and patient is unable to swallow or has mental changes. glucagon 0 Yes 1mg 1 mg, Univers (GLUCAGEN 02-26 Intramuscu ity of DIAGNOSTIC 16:07: lar, PRN, [place] KIT) 18 Starting Medical injection [address] [facility] [place] 02/26/22 at 1107, Until Discontinu ed, TREVOR, Blood Glucose < or = 70 mg/dL and patient is unable to swallow or has mental changes. lactated 2021-0 Yes 1000mL at 75 Univer s ringers IV 7-07 mL/hr, ity of infusion 15:00: 1,000 mL, [place] 1,000 mL 00 IV Medical Infusion, Branch CONTINUOUS , Starting on Shaniqua 02/26/22 at 1000, Until Discontinu ed, Routine, PACU HYDROcodone 2021-0 202- No 1{tbl} 1 tablet, Univers -acetaminop 02-26- Oral, ity of hen (NORCO 15:00: 16:16 ONCE, 1 [place] as 5) 5-325 mg 00 :00 dose, On Medi ashley tablet 1 [place] 02/26/22 Branc h tablet at 1000, Routine, PACU polyethylen 2021-0 Yes 17g 17 g, Unive rs e glycol - Oral, QAM, ity o f 3350 powder 14:00: First dose [place] 17 g 00 on Wed Medical 02/25/22 at Branch 0900, Until Discontinu ed, Routine spironolact 2021-0 Yes 12.5mg 12.5 mg, Univers one 02-25 Oral, ity of (ALDACTONE) 14:00: DAILY, [place] tablet 12.5 00 First dose Me dical mg on Wed Branch 02/25/22 at 0900, Until Discontinu ed, Routine glipiZIDE 0 Yes 10mg 10 mg, Univer s (GLUCOTROL) 02-25 Oral, ity of tablet 10 14:00: DAILY, [place] mg 00 First dose Medical on Wed Branch 02/25/22 at 0900, Until Discontinu ed, Routine dapaglifloz 2021-0 Yes 10mg 10 mg, Univ ers in 02-25 Oral, ity of (FARXIGA) 14:00: DAILY, [place] tablet 10 00 First dose Medi ashley mg on Wed Branch 02/25/22 at 0900, Until Discontinu ed, Routine
Is this a home medication ? Yes
Has this patient brought their own medication ? No
Phar nick will dispense the medication from inpatient. Pharmacy will dispense the medication from inpatient.
Inpati ent ordering of this medication is not allowed unless the patient is maintained on this medication at home, and home supply is unavailabl e. Does this order meet the criteria for inpatient ordering? Yes clopidogreL 2021-0 Yes 75mg 75 mg, Univ ers (PLAVIX) 75 02-25 Oral, ity of mg tablet 14:00: DAILY, [place] 75 mg 00 First dose Medical on [facility] Branch 02/25/22 at 0900, Until Discontinu ed, Routine polyethylen 2021-0 Yes 17g 17 g, Unive rs e glycol 02-25 Oral, QAM, ity o f 3350 powder 14:00: First dose [place] 17 g 00 on [facility] 02/25/22 at Branch 0900, Until Discontinu ed, Routine spironolact 2021-0 Yes 12.5mg 12.5 mg, Univers one 02-25 Oral, ity of (ALDACTONE) 14:00: DAILY, [place] tablet 12.5 00 First dose Me dical mg on [facility] Branch 02/25/22 at 0900, Until Discontinu ed, Routine glipiZIDE 2021-0 Yes 10mg 10 mg, Univer s (GLUCOTROL) -06 Oral, ity of tablet 10 14:00: DAILY, [place] mg 00 First dose Medical on Wed [place] 02/25/22 at 0900, Until Discontinu ed, Routine clopidogreL 2021-0 Yes 75mg 75 mg, Univ ers (PLAVIX) 75 -06 Oral, ity of mg tablet 14:00: DAILY, [place] 75 mg 00 First dose Medical on Wed [place] 02/25/22 at 0900, Until Discontinu ed, Routine polyethylen 2021-0 Yes 17g 17 g, Unive rs e glycol 7- Oral, QAM, ity o f 3350 powder 14:00: First dose [place] 17 g 00 on Wed [facility] 02/25/22 at Branch 0900, Until Discontinu ed, Routine spironolact 2021-0 Yes 12.5mg 12.5 mg, Univers one 02-25 Oral, ity of (ALDACTONE) 14:00: DAILY, [place] tablet 12.5 00 First dose Me dical mg on Wed [place] 02/25/22 at 0900, Until Discontinu ed, Routine glipiZIDE 2021-0 Yes 10mg 10 mg, Univer s (GLUCOTROL) 02-25 Oral, ity of tablet 10 14:00: DAILY, [place] mg 00 First dose Medical on Wed [place] 02/25/22 at 0900, Until Discontinu ed, Routine clopidogreL 2021-0 Yes 75mg 75 mg, Univ ers (PLAVIX) 75 02-25 Oral, ity of mg tablet 14:00: DAILY, [place] 75 mg 00 First dose Medical on Wed [place] 02/25/22 at 0900, Until Discontinu ed, Routine dapaglifloz 2-0 2022- No 10mg 10 mg, Uni vers in 02-25- Oral, ity of (FARXIGA) 14:00: 22:59 DAILY, [place] tablet 10 00 :38 First dose Medi ashley mg on Wed [place] 02/25/22 at 0900, Until Discontinu ed, Routine
Is this a home medication ? Yes
Has this patient brought their own medication ? No
Jorgito romero will dispense the medication from inpatient. Pharmacy will dispense the medication from inpatient.
Inpati ent ordering of this medication is not allowed unless the patient is maintained on this medication at home, and home supply is unavailabl e. Does this order meet the criteria for inpatient ordering? Yes atorvastati 0 Yes 40mg 40 mg, Univ ers n (LIPITOR) 7-06 Oral, QHS, it y of tablet 40 02:00: First dose [place] mg 00 on [facility] 02/24/22 at [place] 2100, Until Discontinu ed, Routine atorvastati 0 Yes 40mg 40 mg, Univ ers n (LIPITOR) 7-06 Oral, QHS, it y of tablet 40 02:00: First dose [place] mg 00 on [facility] 02/24/22 at Branch 2100, Until Discontinu ed, Routine atorvastati 0 Yes 40mg 40 mg, Univ ers n (LIPITOR) 7-06 Oral, QHS, it y of tablet 40 02:00: First dose [place] mg 00 on [facility] 02/24/22 at Branch 2100, Until Discontinu ed, Routine gabapentin 2021-0 Yes 300mg 300 mg, Uni vers (NEURONTIN) 706 Oral, TID, it y of capsule 300 01:00: First dose [place] mg 00 on [facility] 02/24/22 at Branch 1999, Until Discontinu ed, Routine gabapentin 2021-0 Yes 300mg 300 mg, Uni vers (NEURONTIN) 7-06 Oral, TID, it y of capsule 300 01:00: First dose [place] mg 00 on [facility] 02/24/22 at Branch 1999, Until Discontinu ed, Routine gabapentin 2021-0 Yes 300mg 300 mg, Uni vers (NEURONTIN) 7-06 Oral, TID, it y of capsule 300 01:00: First dose [place] mg 00 on [facility] 02/24/22 at Branch 1999, Until Discontinu ed, Routine Sliding 2021-0 Yes Subcutaneo Univ ers Scale 7-05 us, TID ity of Insulin - 22:00: MEALS+HS, [place] as Lispro 00 First dose Medical (HumaLOG) + on [facility] 02/24/22 at Testing 1700, Until Discontinu ed, Routine sevelamer 2021-0 Yes 2400mg 2,400 mg, U nivers (RENVELA) 7-05 Oral, TID ity o f tablet 22:00: MEALS, [place] 2,400 mg 00 First dose Medic al on [facility] 02/24/22 at 1700, Until Discontinu ed, Routine Sliding 2021-0 Yes Subcutaneo [facility] ers Scale 7-05 us, TID ity of Insulin - 22:00: MEALS+HS, [place] Lispro 00 First dose Medical (HumaLOG) + on [facility] 02/24/22 at Testing 1700, Until Discontinu ed, Routine sevelamer 0 Yes 2400mg 2,400 mg, U nivers (RENVELA) 02-24 Oral, TID ity o f tablet 22:00: MEALS, [place] 2,400 mg 00 First dose Medic al on [facility] 02/24/22 at 1700, Until Discontinu ed, Routine Sliding 0 Yes [facility] ers Scale 705 , TID ity of Insulin - 22:00: MEALS+HS, [place] Lispro 00 First dose Medical (HumaLOG) + on [facility] 02/24/22 at Testing 1700, Until Discontinu ed, Routine sevelamer 0 Yes 2400mg 2,400 mg, U nivers (RENVELA) 02-24 Oral, TID ity o f tablet 22:00: MEALS, [place] 2,400 mg 00 First dose Medic al on [facility] 02/24/22 at 1700, Until Discontinu ed, Routine heparin 2021-0 202- No 5000U 5,000 Univers 1000 02-24 07-06 Units, IV ity of unit/mL 21:45: 02:25 Push, [place] injection 00 :00 ONCE, 1 Medical Soln 5,000 dose, On Bran h Units [facility] 02/24/22 at 1645, Routine heparin 2021-0 Yes 3000U FOR Univers (1,000 02-24 REBOLUSING ity of unit/mL, 10 21:34: , Starting [place] mL vial) 24 on [facility] 02/24/22 at Branch 1634, Until Discontinu ed, Routine
Dosing based on aPTT testing parameters (refer to continuous heparin drip order)
heparin 2021-0 Yes 1300U/h 1,300 Univer s 25,000 7-05 Units/hr ity of Units/250 21:34: (13 [place] mL 24 mL/hr), IV Medical (Premixed Infusion, Branc h Bag) in TITRATE, 0.45 % NS Parameters in Admin. Instr., Starting on Wed02/24/22 at 1634
CA UTION - If LMWH given in ER, AVOID bolus and start next dose/drip 12 hrs after ER dosage.&nb sp; M ust program rate using programmab le infusion pump.&nbsp ; Lizeth ck with the ordering provider first prior to any administra tion should the patient be on existing/a dditional anticoagul ant therapy. Rang e, Dosing and Testing: &nbs p;DO NOT ADJUST INITIAL BOLUS OR INITIAL INFUSION RATE.&nbsp ; _ &nb sp;FOR [facility], [facility], AND [facility] ONLY &nbs p; - aPTT < 35: & nbsp;Bolus 5000 units, increase rate 300 units/hr&n bsp; - aPTT 35-44:&nbs p; Min zoë 3000 units, increase rate 200 units/hr&n bsp; - aPTT 45-54:&nbs p; In crease rate 100 units/hr&n bsp; - aPTT 55-85:&nbs p; NO CHANGE&nbs p; - aPTT 86-95:&nbs p; De crease rate 100 units/hr&n bsp; - aPTT 96-120:&nb sp;&nb sp;Hold 30 minutes, decrease rate 150 units/hr&n bsp; - aPTT > 120: Hold 60 minutes, decrease rate 200 units/hr&n bsp; Check aPTT 6 hours after initiation , then Q6H after every change, aPTT Q12H once therapeuti c levels are reached.&n bsp; &nbs p; __ &n bsp;FOR [facility] ONLY - aPTT < 40: & nbsp;Bolus 5000 units, increase rate 300 units/hr&n bsp; - aPTT 40-49:&nbs p; Min zoë 3000 units, increase rate 200 units/hr&n bsp; - aPTT 50-59:&nbs p; In crease rate 100 units/hr&n bsp; - aPTT 60-85:&nbs p; NO CHANGE&nbs p; - aPTT 86-95:&nbs p; De crease rate 100 units/hr&n bsp; - aPTT 96-120:&nb sp; H old 30 minutes, decrease rate 150 units/hr&n bsp; - aPTT > 120: Hold 60 minutes, decrease rate 200 units/hr&n bsp; Check aPTT 6 hours after initiation , then Q6H after every change, aPTT Q12H once therapeuti c levels are reached.<b r> heparin Yes 3000U FOR Univers (1,000 7-05 REBOLUSING ity of unit/mL, 10 21:34: , Starting [place] mL vial) 24 on [facility] Medical 02/24/22 at Branch 1634, Until Discontinu ed, Routine
Dosing based on aPTT testing parameters (refer to continuous heparin drip order)
heparin 0 Yes 1300U/h 1,300 Univer s 25,000 7-05 Units/hr ity of Units/250 21:34: (13 [place] mL 24 mL/hr), IV Medical (Premixed Infusion, Branc h Bag) in TITRATE, 0.45 % NS Parameters in Admin. Instr., Starting on Wed02/24/22 at 1634
CA UTION - If LMWH given in ER, AVOID bolus and start next dose/drip 12 hrs after ER dosage.&nb sp; M ust program rate using programmab le infusion pump.&nbsp ; Lizeth ck with the ordering provider first prior to any administra tion should the patient be on existing/a dditional anticoagul ant therapy. Rang e, Dosing and Testing: &nbs p;DO NOT ADJUST INITIAL BOLUS OR INITIAL INFUSION RATE.&nbsp ; _ &nb sp;FOR [facility], [facility] ONLY &nbs p; - aPTT < 35: & nbsp;Bolus 5000 units, increase rate 300 units/hr&n bsp; - aPTT 35-44:&nbs p; Min zoë 3000 units, increase rate 200 units/hr&n bsp; - aPTT 45-54:&nbs p; In crease rate 100 units/hr&n bsp; - aPTT 55-85:&nbs p; NO CHANGE&nbs p; - aPTT 86-95:&nbs p; De crease rate 100 units/hr&n bsp; - aPTT 96-120:&nb sp;&nb sp;Hold 30 minutes, decrease rate 150 units/hr&n bsp; - aPTT > 120: Hold 60 minutes, decrease rate 200 units/hr&n bsp; Check aPTT 6 hours after initiation , then Q6H after every change, aPTT Q12H once therapeuti c levels are reached.&n bsp; &nbs p; __ &n bsp;FOR [facility] ONLY - aPTT < 40: & nbsp;Bolus 5000 units, increase rate 300 units/hr&n bsp; - aPTT 40-49:&nbs p; Min zoë 3000 units, increase rate 200 units/hr&n bsp; - aPTT 50-59:&nbs p; In crease rate 100 units/hr&n bsp; - aPTT 60-85:&nbs p; NO CHANGE&nbs p; - aPTT 86-95:&nbs p; De crease rate 100 units/hr&n bsp; - aPTT 96-120:&nb sp; H old 30 minutes, decrease rate 150 units/hr&n bsp; - aPTT > 120: Hold 60 minutes, decrease rate 200 units/hr&n bsp; Check aPTT 6 hours after initiation , then Q6H after every change, aPTT Q12H once therapeuti c levels are reached.<b r> heparin Yes 3000U FOR Univers (1,000 7-05 REBOLUSING ity of unit/mL, 10 21:34: , Starting [place] mL vial) 24 on [facility] 02/24/22 at Branch 1634, Until Discontinu ed, Routine
Dosing based on aPTT testing parameters (refer to continuous heparin drip order)
heparin 2021- No 1300U/h 1,300 Unive rs 25,000 7-05 07-14 Units/hr ity of Units/250 21:34: 19:15 (13 [place] mL 24 :32 mL/hr), IV Medical (Premixed Infusion, Branc h Bag) in TITRATE, 0.45 % NS Parameters in Admin. Instr., Starting on [facility] 02/24/22 at 1634
CA UTION - If LMWH given in ER, AVOID bolus and start next dose/drip 12 hrs after ER dosage.&nb sp; M ust program rate using programmab le infusion pump.&nbsp ; Lizeth ck with the ordering provider first prior to any administra tion should the patient be on existing/a dditional anticoagul ant therapy. Rang e, Dosing and Testing: &nbs p;DO NOT ADJUST INITIAL BOLUS OR INITIAL INFUSION RATE.&nbsp ; _ &nb sp;FOR [facility], AND [facility] ONLY &nbs p; - aPTT < 35: & nbsp;Bolus 5000 units, increase rate 300 units/hr&n bsp; - aPTT 35-44:&nbs p; Min zëo 3000 units, increase rate 200 units/hr&n bsp; - aPTT 45-54:&nbs p; In crease rate 100 units/hr&n bsp; - aPTT 55-85:&nbs p; NO CHANGE&nbs p; - aPTT 86-95:&nbs p; De crease rate 100 units/hr&n bsp; - aPTT 96-120:&nb sp;&nb sp;Hold 30 minutes, decrease rate 150 units/hr&n bsp; - aPTT > 120: Hold 60 minutes, decrease rate 200 units/hr&n bsp; Check aPTT 6 hours after initiation , then Q6H after every change, aPTT Q12H once therapeuti c levels are reached.&n bsp; &nbs p; __ &n bsp;FOR [facility] ONLY - aPTT < 40: & nbsp;Bolus 5000 units, increase rate 300 units/hr&n bsp; - aPTT 40-49:&nbs p; Min zoë 3000 units, increase rate 200 units/hr&n bsp; - aPTT 50-59:&nbs p; In crease rate 100 units/hr&n bsp; - aPTT 60-85:&nbs p; NO CHANGE&nbs p; - aPTT 86-95:&nbs p; De crease rate 100 units/hr&n bsp; - aPTT 96-120:&nb sp; H old 30 minutes, decrease rate 150 units/hr&n bsp; - aPTT > 120: Hold 60 minutes, decrease rate 200 units/hr&n bsp; Check aPTT 6 hours after initiation , then Q6H after every change, aPTT Q12H once therapeuti c levels are reached.<b r> glucagon 2021-0 Yes 1mg 1 mg, Univers (GLUCAGEN 7-05 Intramuscu ity of DIAGNOSTIC 21:32: [place], [place]N, [place] KIT) 29 Starting Medical injection 1 on Wed Branch mg 02/24/22 at 1632, Until Discontinu ed, TREVOR, Blood Glucose < or = 70 mg/dL and patient is unable to swallow or has mental changes. glucagon 2021-0 Yes 1mg 1 mg, Univers (GLUCAGEN 7-05 Intravenou ity of DIAGNOSTIC 21:32: s, PRN - [place] as KIT) 29 SEE Medical injection 1 INSTRUCTIO Br anch mg NS, Starting on Wed02/24/22 at 1632, Until Discontinu ed, Routine, hypogrlyce pardeep glucagon 2021-0 Yes 1mg 1 mg, Univers (GLUCAGEN 7-05 Intramuscu ity of DIAGNOSTIC 21:32: [place], PRN, [place] KIT) 29 Starting Medical injection 1 on e Branch mg 02/24/22 at 1632, Until Discontinu ed, TREVOR, Blood Glucose < or = 70 mg/dL and patient is unable to swallow or has mental changes. glucagon 0 Yes 1mg 1 mg, Univers (GLUCAGEN 02-24 Intravenou ity of DIAGNOSTIC 21:32: s, PRN - [place] KIT) 29 SEE Medical injection 1 INSTRUCTIO Br anch mg NS, Starting on Wed02/24/22 at 1632, Until Discontinu ed, Routine, hypogrlyce pardeep glucagon Yes 1mg 1 mg, Univers (GLUCAGEN 02-24 Intramuscu ity of DIAGNOSTIC 21:32: [place], PRN, [place] KIT) 29 Starting Medical injection 1 on [facility] Branch mg 02/24/22 at 1632, Until Discontinu ed, TREVOR, Blood Glucose < or = 70 mg/dL and patient is unable to swallow or has mental changes. glucagon 0 Yes 1mg 1 mg, Univers (GLUCAGEN 02-24 Intravenou ity of DIAGNOSTIC 21:32: s, PRN - [place] KIT) 29 SEE Medical injection 1 INSTRUCTIO Br anch mg NS, Starting on Wed02/24/22 at 1632, Until Discontinu ed, Routine, hypogrlyce pardeep morpHINE (4 2021- Yes 4mg 4 mg, Slow Univers mg/mL) 02-24 IV Push, ity of injection 4 21:32: 21:31 Q4HPRN, [place] mg 21 :21 Starting Medical on [facility] 02/24/22 at 1632, Until [place]iqua 02/26/22 at 1631, Routine, Pain (scale 7-10) morpHINE (4 2021- No 4mg 4 mg, Slow [facility] mg/mL) 02-24 IV Push, ity of injection 4 21:32: 20:10 [place] :06 [place] Medical on [facility] 02/24/22 at 1632, Until [place] 02/26/22 at 1510, Routine, Pain (scale 7-10) HYDROcodone 2021-0 Yes 1{tbl} 1 tablet, Univers -acetaminop 02-24 Oral, ity of hen (NORCO 21:32: Q4HPRN[place] 5[place] 5-325 mg 17 Starting Medi [place] tablet 1 on [facility] tablet 02/24/22 at 1632, Until Discontinu ed, Routine, Pain (scale 4-6) HYDROcodone 2022-0 Yes 1{tbl} 1 tablet, Univers -acetaminop 7-05 Oral, ity of hen (NORCO 21:32: Q4HPRN[place] 5[place] 5-325 mg 17 Starting Medi [place] tablet 1 on e Branch tablet 02/24/22 at 1632, Until Discontinu ed, Routine, Pain (scale 4-6) HYDROcodone 2022-0 Yes 1{tbl} 1 tablet, Univers -acetaminop 7-05 Oral, ity of hen (NORCO 21:32: Q4HPRN, [place] 5[place] 5-325 mg 17 Starting Medi [place] tablet 1 on e Branch tablet 02/24/22 at 1632, Until Discontinu ed, Routine, Pain (scale 4-6) acetaminoph 2022-0 Yes 650mg 650 mg, Un sia en 7-05 Oral, ity of (TYLENOL) 21:32: Q6HPRN, [facility] tablet 650 12 Starting Medic al mg on Branch 02/24/22 at 1632, Until Discontinu ed, Routine, Pain (scale 1-3) acetaminoph 2022-0 Yes 650mg 650 mg, Un sia en 7-05 Oral, ity of (TYLENOL) 21:32: Q6HPRN, DiBcom tablet 650 12 Starting Medic al mg on Branch 02/24/22 at 1632, Until Discontinu ed, Routine, Pain (scale 1-3) acetaminoph 2022-0 Yes 650mg 650 mg, Un sia en 7-05 Oral, ity of (TYLENOL) 21:32: Q6HPRN, DiBcom tablet 650 12 Starting Medic al mg on Branch 02/24/22 at 1632, Until Discontinu ed, Routine, Pain (scale 1-3) ondansetron 2022-0 Yes 4mg 4 mg, Slow [facility] (ZOFRAN 7-05 IV Push, ity of (PF)) 21:32: Q6HPRN, [place] injection 4 07 Starting Medi [place] mg on Wed Branch 02/24/22 at 1632, Until Discontinu ed, Routine, Nausea and Vomiting (N/V) ondansetron 2022-0 Yes 4mg 4 mg, Slow [facility] (ZOFRAN 7-05 IV Push, ity of (PF)) 21:32: Q6HPRN, [place] injection 4 07 Starting Medi [place] mg on [facility] Branch 02/24/22 at 1632, Until Discontinu ed, Routine, Nausea and Vomiting (N/V) ondansetron 0 Yes 4mg 4 mg, Slow [facility] (ZOFRAN 7-05 IV Push, ity of (PF)) 21:32: Q6HPRN, [place] injection 4 07 Starting Medi [place] mg on [facility] Branch 02/24/22 at 1632, Until Discontinu ed, Routine, Nausea and Vomiting (N/V) lidocaine 2021-0 2021- No PRN, Univers 1% (PF) 02-24 Starting ity of (XYLOCAINE) 20:07: 23:17 on [facility] [place] injection 00 :57 02/24/22 at Medic al 1507, Branch Until Wed02/24/22 at 1817, Routine, Intra-op heparin 2021-0 2021- No PRN, Univers 1,000 02-24 Starting ity of unit/mL 18:39: 21:35 on [facility] [place] 10,000 00 :16 02/24/22 at Medical Units in 1339, Branch NaCl 0.9% Intra-op (NS) 1,000 mL OR irrigation gabapentin 0 Yes 300mg Take 300 Un sia 300 mg 7-05 mg by ity of capsule 16:33: mouth 3 [place] [address] (three) Medical times [place] daily. clopidogreL 0 Yes 75mg Take 75 mg Univers (PLAVIX) 75 7-05 by mouth ity of mg tablet 16:33: daily. [address] Branch glipiZIDE 0 Yes 10mg Take 10 mg Un sia 10 mg 7-05 by mouth ity of tablet 16:33: daily. [address] vitamin C 0 Yes 1000mg Take 1,000 Univers with lazaro 7-05 mg by ity of hips 16:33: mouth [place] (VITAMIN C) 50 daily. Medica l 1,000 mg Branch tablet Zinc 50 mg 2021-0 Yes Take by Univ ers Tab 7-05 mouth. ity of 16:33: [address] gabapentin 2021-0 Yes 300mg Take 300 Un sia 300 mg 7-05 mg by ity of capsule 16:33: mouth 3 [place] 50 (three) Medical times Branch daily. clopidogreL Yes 75mg Take 75 mg Univers (PLAVIX) 75 7-05 by mouth ity of mg tablet 16:33: daily. [address] Branch glipiZIDE Yes 10mg Take 10 mg Un sia 10 mg 7-05 by mouth ity of tablet 16:33: daily. [address] vitamin C Yes 1000mg Take 1,000 Univers with lazaro 7-05 mg by ity of hips 16:33: mouth [place] (VITAMIN C) 50 daily. Medica l 1,000 mg Branch tablet Zinc 50 mg Yes Take by Univ ers Tab 7-05 mouth. ity of 16:33: [place] [address] Medical [place] HEPARIN 2021- No 4000U 4,000 Univers SODIUM 7- 07-03 Units, IV ity of (PORCINE) 01:00: 01:24 Push, [place] 1,000 00 :00 ONCE, 1 Medical UNIT/ML dose, On Branch BOLUS ACS 02/21/22 ORDER SET at 2000, TREVOR HYDROcodone 2021- No 1{tbl} 1 tablet, Univers -acetaminop 02-22 07-03 Oral, ity of hen (NORCO 00:49: 01:35 Q4HPRN, [place] 5) 5-325 mg 30 :53 Starting Medi [place] tablet 1 on Sat Branch tablet 02/21/22 at 194, Until 02/21/22 at 2034, Routine, Pain (scale 4-6) heparin 2021- No 1000U/h 1,000 Unive rs 25,000 7 07-03 Units/hr ity of Units/250 00:47: 01:35 (10 [place] mL 37 :14 mL/hr), IV Medical (Premixed Infusion, Branc h Bag) in TITRATE, 0.45 % NS Parameters in Admin. Instr., Starting on 02/21/22 at 1946
CA UTION - If LMWH given in ER, AVOID bolus and start next dose/drip 12 hrs after ER dosage.&nb sp; M ust program rate using programmab le infusion pump.&nbsp ; Lizeth ck with the ordering provider first prior to any administra tion should the patient be on existing/a dditional anticoagul ant therapy. Rang e, Dosing and Testing: &nbs p;FOR [facility], [facility], AND C CAMPUSES ONLY - aPTT < 35: & nbsp;Bolus 5000 units, increase rate 300 units/hr&n bsp; - aPTT 35-44:&nbs p; Min zoë 3000 units, increase rate 200 units/hr&n bsp; - aPTT 45-54:&nbs p; In crease rate 100 units/hr&n bsp; - aPTT 55-85:&nbs p; NO CHANGE&nbs p; - aPTT 86-95:&nbs p; De crease rate 100 units/hr&n bsp; - aPTT 96-120:&nb sp; H old 30 minutes, decrease rate 150 units/hr&n bsp; - aPTT > 120:&n bsp; Hold 60 minutes, decrease rate 200 units/hr&n bsp; Check aPTT 6 hours after initiation , then Q6H after every change, aPTT Q12H once therapeuti c levels are reached.&n bsp; &nbs p; __&nbs p; FO [facility] ONLY - aPTT < 40: & nbsp;Bolus 5000 units, increase rate 300 units/hr&n bsp; - aPTT 40-49:&nbs p; Min zoë 3000 units, increase rate 200 units/hr&n bsp; - aPTT 50-59:&nbs p; In crease rate 100 units/hr&a mp;nbsp; - aPTT 60-85:&nbs p; NO CHANGE&nbs p; - aPTT 86-95:&nbs p; De crease rate 100 units/hr&n bsp; - aPTT 96-120:&nb sp; H old 30 minutes, decrease rate 150 units/hr&n bsp; - aPTT > 120: Hold 60 minutes, decrease rate 200 units/hr&a mp;nbsp;&n bsp;Check aPTT 6 hours after initiation , then Q6H after every change, aPTT Q12H once therapeuti c levels are reached.&n bsp; DO NOT ADJUST INITIAL BOLUS OR INITIAL INFUSION RATE.
ondansetron 2021- No 4mg 4 mg, Slow Univers (ZOFRAN 02-21 IV Push, ity of (PF)) 23:01: 23:40 ONCE, 1 [place] injection 4 00 :00 dose, On Medi [place] mg 02/21/22 Branch at 1815, TREVOR morpHINE (4 2021- No 4mg 4 mg, Slow [facility] mg/mL) 02-21 IV Push, ity of injection 4 23:01: 23:40 ONCE, 1 [place] mg 00 :00 dose, On Medical 02/21/22 Branch at 1815, STAT gabapentin Yes 300mg Take 300 Un sia 300 mg -02 mg by ity of capsule 19:52: mouth 3 [place] [address] (three) Medical times Branch daily. clopidogreL Yes 75mg Take 75 mg Univers (PLAVIX) 75 02-21 by mouth ity of mg tablet 19:52: daily. [address] Branch glipiZIDE Yes 10mg Take 10 mg Un sia 10 mg 02-21 by mouth ity of tablet 19:52: daily. [address] Branch vitamin C Yes 1000mg Take 1,000 Univers with lazaro 7-02 mg by ity of hips 19:52: mouth [place] (VITAMIN C) 38 daily. Medica l 1,000 mg Branch tablet Zinc 50 mg Yes Take by [facility] ers Tab 7-02 mouth. ity of 19:52: [place] 38 Medical Branch HYDROcodone 2021- No 4647 1{tbl} Take 1 U nivers -acetaminop 7-02 07-14 tablet by it y of hen ([employer]) 00:00: 00:00 [place] 5-325 mg 00 :00 every 6 Medical tablet (six) Branch hours as needed for Pain (scale 7-10) for up to 7 days. Indication s: acute pain HYDROcodone 2021- Yes 4647 1{tbl} Take 1 U nivers -acetaminop 7-02 07-10 tablet by it y of hen ([employer]) 00:00: 04:59 [place] 5-325 mg 00 :00 every 6 Medical tablet (six) Branch hours as needed for Pain (scale 7-10) for up to 7 days. Indication s: acute pain HYDROcodone 2021- Yes 4647 1{tbl} Take 1 U nivers -acetaminop 7-02 07-10 tablet by it y of hen ([employer]) 00:00: 04:59 mouth [place] 5-325 mg 00 :00 every 6 Medical tablet (six) Branch hours as needed for Pain (scale 7-10) for up to 7 days. Indication s: acute pain HYDROcodone 2021- Yes 4647 1{tbl} Take 1 U nivers -acetaminop 7-02 07-10 tablet by it y of hen ([employer]) 00:00: 04:59 mouth [place] 5-325 mg 00 :00 every 6 Medical tablet (six) Branch hours as needed for Pain (scale 7-10) for up to 7 days. Indication s: acute pain gabapentin Yes 300mg Take 300 Un sia 300 mg 6-03 mg by ity of capsule 16:00: mouth 3 [place] 43 (three) Medical times Branch daily. clopidogreL Yes 75mg Take 75 mg Univers (PLAVIX) 75 6-03 by mouth ity of mg tablet 16:00: daily. [place] 43 Medical Branch glipiZIDE 2021-0 Yes 10mg Take 10 mg Un sia 10 mg 6-03 by mouth ity of tablet 16:00: daily. [address] vitamin C 2021-0 Yes 1000mg Take 1,000 Univers with lazaro 6-03 mg by ity of hips 16:00: mouth [place] (VITAMIN C) 43 daily. Medica l 1,000 mg Branch tablet Zinc 50 mg 2021-0 Yes Take by Univ ers Tab 6-03 mouth. ity of 16:00: [address] gabapentin 2021-0 Yes 300mg Take 300 Un sia 300 mg 6-03 mg by ity of capsule 16:00: mouth 3 [place] [address] (three) Medical times [place] daily. clopidogreL 2-0 Yes 75mg Take 75 mg Univers (PLAVIX) 75 6-03 by mouth ity of mg tablet 16:00: daily. [address] glipiZIDE 2021-0 Yes 10mg Take 10 mg Un sia 10 mg 6-03 by mouth ity of tablet 16:00: daily. [address] vitamin C 2021-0 Yes 1000mg Take 1,000 Univers with lazaro 6-03 mg by ity of hips 16:00: mouth [place] (VITAMIN C) 43 daily. Medica l 1,000 mg Branch tablet Zinc 50 mg 2021-0 Yes Take by [facility] ers Tab 6-03 mouth. ity of 16:00: [address] gabapentin 2021-0 Yes 300mg Take 300 Un sia 300 mg 6-03 mg by ity of capsule 16:00: mouth 3 [place] [address] (three) Medical times [place] daily. clopidogreL 2-0 Yes 75mg Take 75 mg Univers (PLAVIX) 75 6-03 by mouth ity of mg tablet 16:00: daily. [address] glipiZIDE 2021-0 Yes 10mg Take 10 mg Un sia 10 mg 6-03 by mouth ity of tablet 16:00: daily. [address] vitamin C 2021-0 Yes 1000mg Take 1,000 Univers with lazaro 6-03 mg by ity of hips 16:00: mouth [place] (VITAMIN C) 43 daily. Medica l 1,000 mg Branch tablet Zinc 50 mg 2021-0 Yes Take by Univ ers Tab 6-03 mouth. ity of 16:00: [place] 43 Medical Branch warfarin 5 2021-0 Yes Take as Univ ers mg tablet 5-25 directed ity of 00:00: by [address] based on INR results. warfarin 5 2021-0 Yes Take as Univ ers mg tablet 5-25 directed ity of 00:00: by [address] based on INR results. warfarin 5 2021-0 Yes Take as Univ ers mg tablet 5-25 directed ity of 00:00: by [address] based on INR results. warfarin 5 2021-0 Yes Take as Univ ers mg tablet 5-25 directed ity of 00:00: by [address] based on INR results. warfarin 5 2021-0 Yes Take as Univ ers mg tablet 5-25 directed ity of 00:00: by [address] based on INR results. warfarin 5 2021-0 Yes Take as Univ ers mg tablet 5-25 directed ity of 00:00: by [address] based on INR results. warfarin 5 2021-0 Yes Take as Univ ers mg tablet 5-25 directed ity of 00:00: by [address] based on INR results. warfarin 5 2021-0 Yes Take as Univ ers mg tablet 5-25 directed ity of 00:00: by [address] based on INR results. warfarin 5 2021-0 Yes Take as Univ ers mg tablet 5-25 directed ity of 00:00: by [address] based on INR results. warfarin 5 2021-0 Yes Take as Univ ers mg tablet 5-25 directed ity of 00:00: by [address] based on INR results. warfarin 5 2021-0 Yes Take as Univ ers mg tablet 5-25 directed ity of 00:00: by [address] based on INR results. dapaglifloz 2022-0 Yes [id number] 10mg Take 1 Univers in 12-1900 tablet by ity of () 00:00: mouth [place] 10 mg 00 daily. Medical tablet Branch dapaglifloz 2-0 Yes [id number] 10mg Take 1 Univers in 12-19 9100 tablet by ity of () 00:00: mouth [place] 10 mg 00 daily. Medical tablet Branch dapaglifloz 2022-0 Yes [id number] 10mg Take 1 Univers in 12-19 9100 tablet by ity of ([facility]) 00:00: mouth [place] 10 mg 00 daily. Medical tablet Branch dapaglifloz 2022-0 Yes [id number] 10mg Take 1 Univers in 12-19 9100 tablet by ity of ([facility]) 00:00: mouth [place] 10 mg 00 daily. Medical tablet Branch dapaglifloz 2022-0 Yes [id number] 10mg Take 1 Univers in 12-19 9100 tablet by ity of ([facility]) 00:00: mouth [place] 10 mg 00 daily. Medical tablet Branch dapaglifloz 2-0 Yes [id number] 10mg Take 1 Univers in 12-19 9100 tablet by ity of ([facility]) 00:00: mouth [place] 10 mg 00 daily. Medical tablet Branch dapaglifloz 2-0 Yes [id number] 10mg Take 1 Univers in 12-19 9100 tablet by ity of ([facility]) 00:00: mouth [place] 10 mg 00 daily. Medical tablet Branch dapaglifloz 2-0 Yes [id number] 10mg Take 1 Univers in 12-19 9100 tablet by ity of ([facility]) 00:00: mouth [place] 10 mg 00 daily. Medical tablet Branch dapaglifloz 2-0 Yes [id number] 10mg Take 1 Univers in 12-19 9100 tablet by ity of ([facility]) 00:00: mouth [place] 10 mg 00 daily. Medical tablet Branch dapaglifloz 2-0 Yes [id number] 10mg Take 1 Univers in 12-19 9100 tablet by ity of ([facility]) 00:00: mouth [place] 10 mg 00 daily. Medical tablet Branch dapaglifloz 2-0 Yes [id number] 10mg Take 1 Univers in 12-19 9100 tablet by ity of ([facility]) 00:00: mouth [place] 10 mg 00 daily. Medical tablet Branch losartan 25 2-0 Yes [id number] 25mg Take 1 Univers mg tablet 4-21 tablet by ity o f 00:00: mouth [place] 00 daily. Medical Branch spironolact 2022-0 Yes [id number] 12.5mg Take 0.5 Univers one 25 mg 4-21 tablets by ity of tablet 00:00: mouth [place] 00 daily. Medical Branch losartan 25 2021-0 Yes [id number] 25mg Take 1 Univers mg tablet 4-21 tablet by ity o f 00:00: mouth [place] 00 daily. Medical Branch spironolact 2021-0 Yes [id number] 12.5mg Take 0.5 Univers one 25 mg 4-21 tablets by ity of tablet 00:00: mouth [place] 00 daily. Medical Branch losartan 25 0 Yes [id number] 25mg Take 1 Univers mg tablet 4-21 tablet by ity o f 00:00: mouth [place] 00 daily. Medical Branch spironolact 2021-0 Yes [id number] 12.5mg Take 0.5 Univers one 25 mg 4-21 tablets by ity of tablet 00:00: mouth [place] 00 daily. Medical Branch losartan 25 0 Yes [id number] 25mg Take 1 Univers mg tablet 4-21 tablet by ity o f 00:00: mouth [place] 00 daily. Medical Branch spironolact 2021-0 Yes [id number] 12.5mg Take 0.5 Univers one 25 mg 4-21 tablets by ity of tablet 00:00: mouth [place] 00 daily. Medical Branch losartan 25 0 Yes [id number] 25mg Take 1 Univers mg tablet 4-21 tablet by ity o f 00:00: mouth [place] 00 daily. Medical Branch spironolact 2021-0 Yes [id number] 12.5mg Take 0.5 Univers one 25 mg 4-21 tablets by ity of tablet 00:00: mouth [place] 00 daily. Medical Branch losartan 25 2021-0 Yes [id number] 25mg Take 1 Univers mg tablet 4-21 tablet by ity o f 00:00: mouth [place] 00 daily. Medical Branch spironolact 2021-0 Yes [id number] 12.5mg Take 0.5 Univers one 25 mg 4-21 tablets by ity of tablet 00:00: mouth [place] 00 daily. Medical Branch losartan 25 2021-0 Yes [id number] 25mg Take 1 Univers mg tablet 4-21 tablet by ity o f 00:00: mouth [place] 00 daily. Medical Branch spironolact 2021-0 Yes [id number] 12.5mg Take 0.5 Univers one 25 mg 4-21 tablets by ity of tablet 00:00: mouth [place] 00 daily. Medical Branch losartan 25 2021-0 Yes [id number] 25mg Take 1 Univers mg tablet 4-21 tablet by ity o f 00:00: mouth [place] 00 daily. Medical Branch spironolact 2021-0 Yes [id number] 12.5mg Take 0.5 Univers one 25 mg 4-21 tablets by ity of tablet 00:00: mouth [place] 00 daily. Medical Branch losartan 25 2021-0 Yes [id number] 25mg Take 1 Univers mg tablet 4-21 tablet by ity o f 00:00: mouth [place] 00 daily. Medical Branch spironolact 2021-0 Yes [id number] 12.5mg Take 0.5 Univers one 25 mg 4-21 tablets by ity of tablet 00:00: mouth [place] 00 daily. Medical Branch losartan 25 0 Yes [id number] 25mg Take 1 Univers mg tablet 4-21 tablet by ity o f 00:00: mouth [place] 00 daily. Medical Branch spironolact 2021-0 Yes [id number] 12.5mg Take 0.5 Univers one 25 mg 4-21 tablets by ity of tablet 00:00: mouth [place] 00 daily. Medical Branch losartan 25 0 Yes [id number] 25mg Take 1 Univers mg tablet 4-21 tablet by ity o f 00:00: mouth [place] 00 daily. Medical Branch spironolact 2021-0 Yes [id number] 12.5mg Take 0.5 Univers one 25 mg 4-21 tablets by ity of tablet 00:00: mouth [place] 00 daily. Medical Branch sevelamer 2021-0 Yes [id number] 2400mg Take 3 Univers 800 mg 4-20 tablets by ity of tablet 00:00: mouth 3 [place] 00 (three) Medical times Branch daily with meals. atorvastati 2021-0 Yes [id number] 40mg Take 1 Univers n 40 mg 4-20 tablet by ity of tablet 00:00: mouth at [place] 00 bedtime. Medical Branch furosemide 2021-0 Yes [id number] 120mg Take 3 [facility] 40 mg 4-20 tablets by ity of tablet 00:00: mouth [place] 00 every Medical morning Branch and evening. warfarin 5 2021-0 Yes [id number] 5mg Take 1 Univers mg tablet 4-20 tablet by ity o f 00:00: mouth [place] 00 every Medical evening. Branch sevelamer 2021-0 Yes [id number] 2400mg Take 3 Univers 800 mg 4-20 tablets by ity of tablet 00:00: mouth 3 (three) Medical times Branch daily with meals. atorvastati 2021-0 Yes [id number] 40mg Take 1 Univers n 40 mg 4-20 tablet by ity of tablet 00:00: mouth at [place] 00 bedtime. Medical Branch furosemide 2021-0 Yes [id number] 120mg Take 3 [facility] 40 mg 4-20 tablets by ity of tablet 00:00: mouth [place] 00 every Medical morning Branch and evening. warfarin 5 2021-0 Yes [id number] 5mg Take 1 Univers mg tablet 4-20 tablet by ity o f 00:00: mouth [place] 00 every Medical evening. Branch sevelamer 2021-0 Yes [id number] 2400mg Take 3 [facility] 800 mg 4-20 tablets by ity of tablet 00:00: mouth (three) Medical times Branch daily with meals. atorvastati 2021-0 Yes [id number] 40mg Take 1 Univers n 40 mg 4-20 tablet by ity of tablet 00:00: mouth at [place] 00 bedtime. Medical Branch furosemide 2021-0 Yes [id number] 120mg Take 3 [facility] 40 mg 4-20 tablets by ity of tablet 00:00: mouth [place] 00 every Medical morning Branch and evening. warfarin 5 2021-0 Yes [id number] 5mg Take 1 [facility] mg tablet 4-20 tablet by ity o f 00:00: mouth [place] 00 every Medical evening. Branch sevelamer 2021-0 Yes [id number] 2400mg Take 3 [facility] 800 mg 4-20 tablets by ity of tablet 00:00: mouth 3 (three) Medical times Branch daily with meals. atorvastati 2021-0 Yes [id number] 40mg Take 1 Univers n 40 mg 4-20 tablet by ity of tablet 00:00: mouth at [place] 00 bedtime. Medical Branch furosemide 2021-0 Yes [id number] 120mg Take 3 [facility] 40 mg 4-20 tablets by ity of tablet 00:00: mouth [place] 00 every Medical morning Branch and evening. warfarin 5 2021-0 Yes [id number] 5mg Take 1 Univers mg tablet 4-20 tablet by ity o f 00:00: mouth [place] 00 every Medical evening. Branch sevelamer 2021-0 Yes [id number] 2400mg Take 3 Univers 800 mg 4-20 tablets by ity of tablet 00:00: mouth 3 (three) Medical times Branch daily with meals. atorvastati 2021-0 Yes [id number] 40mg Take 1 Univers n 40 mg 4-20 tablet by ity of tablet 00:00: mouth at [place] 00 bedtime. Medical Branch furosemide 2021-0 Yes [id number] 120mg Take 3 [facility] 40 mg 4-20 tablets by ity of tablet 00:00: mouth [place] 00 every Medical morning Branch and evening. warfarin 5 2021-0 Yes [id number] 5mg Take 1 Univers mg tablet 4-20 tablet by ity o f 00:00: mouth [place] 00 every Medical evening. Branch sevelamer 2021-0 Yes [id number] 2400mg Take 3 [facility] 800 mg 4-20 tablets by ity of tablet 00:00: mouth (three) Medical times Branch daily with meals. atorvastati 2021-0 Yes [id number] 40mg Take 1 Univers n 40 mg 4-20 tablet by ity of tablet 00:00: mouth at [place] 00 bedtime. Medical Branch furosemide 2021-0 Yes [id number] 120mg Take 3 [facility] 40 mg 4-20 tablets by ity of tablet 00:00: mouth [place] 00 every Medical morning Branch and evening. warfarin 5 2021-0 Yes [id number] 5mg Take 1 Univers mg tablet 4-20 tablet by ity o f 00:00: mouth [place] 00 every Medical evening. Branch sevelamer 2021-0 Yes [id number] 2400mg Take 3 [facility] 800 mg 4-20 tablets by ity of tablet 00:00: mouth 3 (three) Medical times Branch daily with meals. atorvastati 2021-0 Yes [id number] 40mg Take 1 Univers n 40 mg 4-20 tablet by ity of tablet 00:00: mouth at [place] 00 bedtime. Medical Branch furosemide 2021-0 Yes [id number] 120mg Take 3 [facility] 40 mg 4-20 tablets by ity of tablet 00:00: mouth [place] 00 every Medical morning Branch and evening. warfarin 5 2021-0 Yes [id number] 5mg Take 1 Univers mg tablet 4-20 tablet by ity o f 00:00: mouth [place] 00 every Medical evening. Branch sevelamer 2021-0 Yes [id number] 2400mg Take 3 [facility] 800 mg 4-20 tablets by ity of tablet 00:00: mouth 3 [place] (three) Medical times Branch daily with meals. atorvastati 2021-0 Yes [id number] 40mg Take 1 Univers n 40 mg 4-20 tablet by ity of tablet 00:00: mouth at [place] 00 bedtime. Medical Branch furosemide 2021-0 Yes [id number] 120mg Take 3 [facility] 40 mg 4-20 tablets by ity of tablet 00:00: mouth [place] 00 every Medical morning Branch and evening. warfarin 5 2021-0 Yes [id number] 5mg Take 1 Univers mg tablet 4-20 tablet by ity o f 00:00: mouth [place] 00 every Medical evening. Branch sevelamer 2021-0 Yes [id number] 2400mg Take 3 [facility] 800 mg 4-20 tablets by ity of tablet 00:00: mouth (three) Medical times Branch daily with meals. atorvastati 2021-0 Yes [id number] 40mg Take 1 Univers n 40 mg 4-20 tablet by ity of tablet 00:00: mouth at [place] 00 bedtime. Medical Branch furosemide 2021-0 Yes [id number] 120mg Take 3 Univers 40 mg 4-20 tablets by ity of tablet 00:00: mouth [place] 00 every Medical morning Branch and evening. warfarin 5 2021-0 Yes [id number] 5mg Take 1 Univers mg tablet 4-20 tablet by ity o f 00:00: mouth [place] 00 every Medical evening. Branch sevelamer 2021-0 Yes [id number] 2400mg Take 3 [facility] 800 mg 4-20 tablets by ity of tablet 00:00: mouth 3 [place] 00 (three) Medical times Branch daily with meals. atorvastati 2021-0 Yes [id number] 40mg Take 1 Univers n 40 mg 4-20 tablet by ity of tablet 00:00: mouth at [place] 00 bedtime. Medical Branch furosemide 2021-0 Yes [id number] 120mg Take 3 [facility] 40 mg 4-20 tablets by ity of tablet 00:00: mouth [place] 00 every Medical morning Branch and evening. warfarin 5 2022-0 Yes [id number] 5mg Take 1 Univers mg tablet 4-20 tablet by ity o f 00:00: mouth [place] 00 every Medical evening. Branch sevelamer 0 Yes [id number] 2400mg Take 3 [facility] 800 mg 4-20 tablets by ity of tablet 00:00: mouth 3 [place] 00 (three) Medical times Branch daily with meals. atorvastati Yes [id number] 40mg Take 1 Univers n 40 mg 4-20 tablet by ity of tablet 00:00: mouth at [place] 00 bedtime. Medical Branch furosemide 0 Yes [id number] 120mg Take 3 [facility] 40 mg 4-20 tablets by ity of tablet 00:00: mouth [place] 00 every Medical morning Branch and evening. warfarin 5 Yes [id number] 5mg Take 1 [facility] mg tablet 4-20 tablet by ity o f 00:00: mouth [place] 00 every Medical evening. Branch traMADoL Yes [id number] 50mg Take 1 Univers (ULTRAM) 50 1-10 tablet by ity of mg tablet 00:00: mouth [place] 00 every 6 Medical (six) Branch hours as needed for Pain (scale 7-10) for up to 28 doses. Indication s: acute pain traMADoL Yes [id number] 50mg Take 1 Univers (ULTRAM) 50 1-10 tablet by ity of mg tablet 00:00: mouth [place] 00 every 6 Medical (six) Branch hours as needed for Pain (scale 7-10) for up to 28 doses. Indication s: acute pain traMADoL Yes [id number] 50mg Take 1 [facility] (ULTRAM) 50 1-10 tablet by ity of mg tablet 00:00: mouth [place] 00 every 6 Medical (six) Branch hours as needed for Pain (scale 7-10) for up to 28 doses. Indication s: acute pain traMADoL Yes [id number] 50mg Take 1 [facility] (ULTRAM) 50 1-10 tablet by ity of mg tablet 00:00: mouth [place] 00 every 6 Medical (six) Branch hours as needed for Pain (scale 7-10) for up to 28 doses. Indication s: acute pain traMADoL Yes [id number] 50mg Take 1 [facility] (ULTRAM) 50 1-10 tablet by ity of mg tablet 00:00: mouth [place] 00 every 6 Medical (six) Branch hours as needed for Pain (scale 7-10) for up to 28 doses. Indication s: acute pain traMADoL 2021-0 Yes [id number] 50mg Take 1 Univers (ULTRAM) 50 1-10 tablet by ity of mg tablet 00:00: mouth [place] 00 every 6 Medical (six) Branch hours as needed for Pain (scale 7-10) for up to 28 doses. Indication s: acute pain traMADoL 2021-0 Yes 4647 50mg Take 1 [facility] (ULTRAM) 50 1-10 tablet by ity of mg tablet 00:00: mouth [place] 00 every 6 Medical (six) Branch hours as needed for Pain (scale 7-10) for up to 28 doses. Indication s: acute pain traMADoL 2021-0 Yes [id number] 50mg Take 1 [facility] (ULTRAM) 50 1-10 tablet by ity of mg tablet 00:00: mouth [place] 00 every 6 Medical (six) Branch hours as needed for Pain (scale 7-10) for up to 28 doses. Indication s: acute pain traMADoL 2021-0 Yes 4647 50mg Take 1 [facility] (ULTRAM) 50 1-10 tablet by ity of mg tablet 00:00: mouth [place] 00 every 6 Medical (six) Branch hours as needed for Pain (scale 7-10) for up to 28 doses. Indication s: acute pain traMADoL 2021-0 Yes 4647 50mg Take 1 [facility] (ULTRAM) 50 1-10 tablet by ity of mg tablet 00:00: mouth [place] 00 every 6 Medical (six) Branch hours as needed for Pain (scale 7-10) for up to 28 doses. Indication s: acute pain traMADoL 2021-0 Yes 4647 50mg Take 1 [facility] (ULTRAM) 50 1-10 tablet by ity of mg tablet 00:00: mouth [place] 00 every 6 Medical (six) Branch hours as needed for Pain (scale 7-10) for up to 28 doses. Indication s: acute pain apixaban 5 2020-0 Yes 5 mg = 1 [facility]ria mg oral 4-21 tab, PO, l tablet 18:03: Q12H, # 60 Nay nn 00 tab, 0 Refill(s), Pharmacy: [facility] #[id number], For Atrial Fibrilatio n, 107.005, kg, 12/10/20 6:02:00 CDT, Weight Losartan No Notes: Memoria 12-11 (Same as: l 14:00: Cozaar) Amlodipine No Notes: Memor ia 12-11 (Same as: l 14:00: Norvasc) Eliquis No Notes: Memoria 12-11 Same as: l 02:00: Eliquis Pravastatin No Notes: Connor beto 12-11 (Same as: l 02:00: Pravachol) Saline No Notes: Memoria Flush 0.9% 12-11 (Same as: l 02:00: BD Posiflush) Sodium No 2,000 mL, Memori a Chloride 12-10 2000 l 0.9% 23:44: ml/hr, David (Bolus) IV 00 Infuse Over: 1 hr, Route: IV, 2,000, Drug form: INJ, ONCE, Priority: STAT, Dosing Weight 107.005 kg, Start date: 12/10/20 18:44:00 CDT, Stop date: 12/10/20 18:44:00 CDT, 0 Nitroglycer No Notes: Connor beto in 12-10 (Same l 20:34: as:Nitroqu ick, Nitrostat) "Do Not Crush" Sublingual tablet Saline No Notes: Memoria Flush 0.9% 12-10 preservati l 20:34: ve free. Dextrose No 12.5 gm, Memor ia 50% Syringe 12-10 25 mL, l (D50W) 19:58: Route: IVP, [...] Memoria 4-20 Take with l 17:24: food. Zofran No Notes: [facility] 4-20 (Same as: l 13:54: Zofran) MEDICATION WASTE Product Size: 4 mg Product Wasted: ___ mg Morphine No Notes: Mem[facility] 4-20 (Same l 13:53: as:MORPhin e Sulfate) VITAMIN D2 2017-08 Yes [facility] 50,000 unit 1-08 ity of capsule 00:00: [facility] VITAMIN D2 2017-08 Yes Univers 50,000 unit 1-08 ity of capsule 00:00: Medical Branch VITAMIN D2 2017-08 Yes [facility] 50,000 unit 1-08 ity of capsule 00:00: Medical Branch VITAMIN D2 2017-08 Yes [facility] 50,000 unit 1-08 ity of capsule 00:00: Medical Branch VITAMIN D2 2017-08 Yes [facility] 50,000 unit 1-08 ity of capsule 00:00: Medical Branch VITAMIN D2 2017-08 Yes [facility] 50,000 unit 1-08 ity of capsule 00:00: [facility] VITAMIN D2 2017-08 Yes Univers 50,000 unit 1-08 ity of capsule 00:00: Medical Branch VITAMIN D2 2017-08 Yes [facility] 50,000 unit 1-08 ity of capsule 00:00: Medical Branch VITAMIN D2 2017-08 Yes [facility] 50,000 unit 1-08 ity of capsule 00:00: Medical Branch VITAMIN D2 2017-08 Yes [facility] 50,000 unit 1-08 ity of capsule 00:00: Medical Branch VITAMIN D2 2017-08 Yes [facility] 50,000 unit 1-08 ity of capsule 00:00: [facility] Losartan No Notes: Memoria - (Same as: l 14:00: Cozaar) glimepiride No [...] MG 22:00: Apresoline [place] Oral Tablet ) May interfere w/enteral feedings Take With Food Miralax No Notes: Memoria 5-21 Dissolve l 20:24: in 8 oz of David water or juice. (Same as: Miralax) Zofran No Notes: Memoria 5-21 (Same as: l 20:24: Zofran) [place] MEDICATION WASTE Product Size: 4 mg Product Wasted: ___ mg Hydralazine Yes 50 mg = 1 M emoria Hydrochlori 5-21 tab, PO, l de 50 MG 20:17: TID, 0 David Oral Tablet 00 Refill(s) metoprolol Yes 25 mg = 1 Me moria tartrate 25 5-21 tab, PO, l mg oral 12:58: BID, # 180 Herm shelbie tablet 00 tab, 0 Refill(s) bumetanide Yes 2 mg = 1 Mem oria 2 mg oral 5-21 tab, PO, l tablet 12:56: Daily, # David 00 30 tab, 0 Refill(s) Aspirin No Notes: Memoria 3-29 Take with l 14:00: food. clopidogrel No Notes: Connor beto 3-29 (Same As: l 14:00: Plavix) Morphine No Notes: Memoria 3- (Same l 21:42: as:MORPhin e Sulfate) Zofran No Notes: Memoria 3- (Same as: l 20:20: Zofran) MEDICATION WASTE Product Size: 4 mg Product Wasted: ___ mg Hydralazine No Notes: Connor beto - (Same as: l 20:17: Apresoline ) Push over 5 minutes Ondansetron No Notes: Connor beto 2- (Same as: l 18:09: Zofran) MEDICATION WASTE Product Size: 4 mg Product Wasted: ___ mg Acetaminoph No Notes: Connor beto en 325 MG / 10-20 (Same as: l Hydrocodone 18:09: [place] Nay nn Bitartrate 00 325/5) Do 5 MG Oral not exceed Tablet 4gm/day of acetaminop hen. neostigmine No Route: IV, Memoria (ANES) 10-20 Drug form: l 18:03: INJ, ONCE, Stop date: 10/20/17 12:03:00 PROFESSIONAL ENGINEER glycopyrrol No Route: IV, Memoria ate (ANES) 10-20 Drug form: l 18:03: INJ, ONCE, Stop date: 10/20/17 12:03:00 PROFESSIONAL ENGINEER phenylephri No Route: IV, Memoria ne (ANES) 10-20 Drug form: l 17:53: INJ, ONCE, Stop date: 10/20/17 11:53:00 PROFESSIONAL ENGINEER propofol No Route: IV, Mem oria (ANES) 10-20 Drug form: l 17:38: INJ, ONCE, Stop date: 10/20/17 11:38:00 PROFESSIONAL ENGINEER rocuronium No Route: IV, M emoria (ANES) 10-20 Drug form: l 17:38: INJ, ONCE, Stop date: 10/20/17 11:38:00 PROFESSIONAL ENGINEER fentaNYL No Route: IV, Mem oria (ANES) 10-20 Drug form: l 17:38: INJ, ONCE, Stop date: 10/20/17 11:38:00 PROFESSIONAL ENGINEER midazolam No Route: IV, Me moria (ANES) 10-20 Drug form: l 17:38: SOLN, ONCE, Stop date: 10/20/17 11:38:00 PROFESSIONAL ENGINEER Fentanyl No Notes: Memoria 10-20 (Same as: l 17:08: Sublimaze) Preservati ve free. Acetaminoph No Notes: Connor beto en [...] ion: 4mg/ml Hydralazine No Notes: Connor beto - (Same as: l 17:08: Apresoline ) Push over 5 minutes Labetalol No Notes: Memori a 10-20 (Same as: l 17:08: Normodyne, Trandate) Push over 2 minutes Give bolus over 2-3 minutes. vancomycin No Route: IV, M emoria (ANES) 1.5 10-20 Drug form: l gm 17:05: INJ, Start date: 10/20/17 11:05:00 PROFESSIONAL ENGINEER, Stop date: 10/20/17 12:05:00 PROFESSIONAL ENGINEER Sodium No Route: IV, Memor ia Chloride 10-20 Total l 0.9% IV 16:52: Volume: [place] (ANES) 500 00 500, Start mL date: 10/20/17 10:52:00 PROFESSIONAL ENGINEER, Stop date: 10/20/17 11:52:00 PROFESSIONAL ENGINEER Lidocaine No Notes: Memori a 25 MG/ML / 10-20 Apply to l Prilocaine 16:48: desired Herm shelbie 25 MG/ML 00 area 2 hrs Topical prior to Cream needle [EMLA] insertion. (Same as: Emla) Vancomycin No 2000 mg: Me moria 10-20 infuse l 14:00: over 2.5 David 00 hours For adult patients only: Round to nearest 250 mg per Medical Staff approval MEDICATION WASTE Product Size: 1000 mg Product Wasted: ___ mg Insulin No Notes: Memoria Lispro 10-20 (Same as: l 11:28: Humalog ) David 00 Roll in palms of hands gently; Do not shake `vigorousl y. "Single Patient Use Only " WASTE: F/P - Black; E - Municipal Trash Bin Stable for 28 days at room temperatur e. Expires in days from ____Date Dextrose No 12.5 gm, Memor ia 50% Syringe 10-20 25 mL, l 11:28: Route: David IVP, Drug Form: INJ, Dosing Weight 99.091, kg, PRN, PRN Blood Glucose Results, Start date: 10/20/17 5:28:00 PROFESSIONAL ENGINEER, Duration: 30 day, Stop date: 11/19/17 6:27:00 CDT Glucagon No 1 mg, Memoria 10-20 Route: IM, l 11:28: Drug form: David 00 PDR/INJ, PRN, Dosing Weight 99.091, kg, PRN Blood Glucose Results, Start date: 10/20/17 5:28:00 PROFESSIONAL ENGINEER, Duration: 30 day, Stop date: 11/19/17 6:27:00 CDT Ondansetron No Notes: Connor beto 10-20 (Same as: l 04:19: Zofran) [place] 00 MEDICATION WASTE Product Size: 4 mg Product Wasted: ___ mg Acetaminoph No Notes: Do M emoria en 10-20 not exceed l 04:19: 4 gm/day. David (Same as: Tylenol) Morphine No Notes: Memoria 10-20 (Same l 04:19: as:MORPhin e Sulfate) Vasotec No 1.25 mg, Memori a 10-20 Route: IV, l 03:34: ONCE, Dosing Weight 99.364, kg, Priority: STAT, Start date: 10/19/17 21:34:00 PROFESSIONAL ENGINEER, Stop date: 10/19/17 21:34:00 PROFESSIONAL ENGINEER GI cocktail 2016-08 Yes Notes: Connor beto 2-20 G.I. l 08:46: Cocktail = antacid with simethicon e 22.5 mL - lidocaine viscous 7.5 mL Ondansetron 2016-08 No 4 mg, Memor ia 10-12 Route: l 07:30: IVP, Drug form: INJ, ONCE, Dosing Weight 104.545, kg, Priority: STAT, Start date: 08/11/17 1:30:00 PROFESSIONAL ENGINEER, Stop date: 08/11/17 1:30:00 PROFESSIONAL ENGINEER Morphine 2016-08 No 4 mg, Memoria 10-12 Route: l 07:30: IVP, ONCE, Dosing Weight 104.545, kg, Priority: STAT, Start date: 08/11/17 1:30:00 PROFESSIONAL ENGINEER, Stop date: 08/11/17 1:30:00 PROFESSIONAL ENGINEER carvedilol 2016-08 Yes 12.5 mg = Me moria 12.5 mg 03 1 tab, PO, l oral tablet 17:58: [...] 90 Bob n 00 tab, 0 Refill(s) Bumex 2016-08 No Notes: Memoria - (Same As: l 17:39: Bumex) David 00 Bumex 2016-08 No Notes: Memoria 1-03 (Same As: l 17:38: Bumex) Plavix 2016-08 No Notes: Memoria 1-03 (Same As: l 14:00: Plavix) aspirin 81 2016-08 No Notes: Do Me moria mg tablet, -03 not crush l enteric 14:00: or chew. Bob n coated 00 (Same As: Ecotrin) hydrALAZINE 2016-08 No Notes: Connor beto 1-03 (Same as: l 14:00: Apresoline ) May interfere w/enteral feedings Take With Food hydrALAZINE 2016-08 No Notes: Connor beto 1-03 (Same as: l 06:38: Apresoline ) Push over 5 minutes pravastatin 2016-08 No Notes: Connor beto -03 (Same as: l 02:00: Pravachol) David 00 losartan 25 2016-08 Yes 25 mg = 1 M emoria mg oral 1-02 tab, PO, l tablet 15:53: Daily, # David 00 30 tab, 0 Refill(s) furosemide 2016-08 No 40 mg = 1 Me moria 40 mg oral 1-02 tab, PO, l tablet 15:53: BID, # 30 Bob n 00 tab, 0 Refill(s) insulin 2016-08 No Notes: Memoria lispro - Roll in l 15:31: palms of hands [...] Duration: 30 day, Stop date: 07/24/17 9:30:00 PROFESSIONAL ENGINEER Dextrose 2016-08 No 12.5 gm, Memor ia 50% Syringe -02 25 mL, l 15:31: Route: [place] 00 IVP, Drug Form: INJ, Dosing Weight 104.545, kg, PRN, PRN Blood Glucose Results, Start date: 06/24/17 10:31:00 CDT, Duration: 30 day, Stop date: 07/24/17 9:30:00 PROFESSIONAL ENGINEER Coreg 2016-08 No Notes: Memoria 1-02 Give with l 15:28: food. David 00 (Same As: Coreg) hydrALAZINE 2016-08 No Notes: Connor beto 50 mg oral 08-24 (Same as: l tablet 15:27: Apresoline Nay nn 00 ) May interfere w/enteral feedings Take With Food amLODIPine 2016-08 No Notes: Memor ia - (Same as: l 15:27: Norvasc) David losartan 2016-08 No Notes: Memoria - (Same as: l 15:26: Cozaar) [place] Lasix 2016-08 No 40 mg, Memoria 08-24 Route: l 13:39: IVP, Drug David 00 form: INJ, ONCE, Dosing Weight 104.091, kg, Priority: STAT, Start date: 06/24/17 8:39:00 CDT, Stop date: 06/24/17 8:39:00 CDT bumetanide 2016-08 No Notes: Memor ia 10 mg + 08-24 (Same As: l sodium 13:35: Bumex) David chloride 00 0.9% INJ 60 mL Lasix 2016-08 No 40 mg, Memoria 08-24 Route: l 13:10: IVP, Drug form: INJ, ONCE, Dosing Weight 104.091, kg, Priority: STAT, Start date: 06/24/17 8:10:00 CDT, Stop date: 06/24/17 8:10:00 CDT Saline 2016-08 No Notes: Memoria Flush 0.9% 08-24 (Same as: l 12:23: BD [place] Posiflush) Acetaminoph 2016-08 No 1 - 2 tab, Memoria en 300 MG / 0-19 PO, Q4H, l Codeine 21:31: PRN Pain, Nay nn Phosphate 00 X 2 day, # 30 MG Oral 20 tab, 0 Tablet Refill(s) [Tylenol with Codeine #3] protamine 2016-08 No Route: IV, Me moria (ANES) 0-19 Drug form: l 21:05: INJ, ONCE, David 00 Stop date: 06/10/17 16:05:00 CDT heparin 2016-08 No Route: IV, Connor beto (ANES) 0-19 Drug form: l 20:55: INJ, ONCE, Stop date: 06/10/17 15:55:00 CDT ceFAZolin 2016-08 No Route: IV, Me moria (ANES) 0-19 Drug form: l 20:35: INJ, ONCE, Stop date: 06/10/17 15:35:00 CDT Fentanyl 2016-08 No Notes: Memoria 0-19 (Same as: l 20:34: Sublimaze) Preservati ve free. Hydralazine 2016-08 No 10 mg, Connor [...] tab, PO, l tablet 16:37: Daily, 0 [place] 00 Refill(s) clopidogrel 2016-08 Yes 75 mg = 1 M emoria 75 mg oral 0-19 tab, PO, l tablet 16:34: Daily, 0 [place] 00 Refill(s) Sodium 2016-08 Yes 650 mg, Memoria Bicarbonate 0-19 PO, QID, 0 l 16:34: Refill(s) [place] 00 Aspirin 2016-08 Yes 0 Memoria 0-19 Refill(s) l 16:33: [place] 00 Hydralazine 2016-08 Yes 50 mg = 1 M emoria Hydrochlori 0-19 tab, PO, l de 50 MG 16:33: QID, 0 [place] Oral Tablet 00 Refill(s) Amlodipine 2016-08 Yes PO, Daily, M emoria 0-19 0 l 16:32: Refill(s) David 00 pravastatin 2016-08 Yes 40 mg = 1 M emoria 40 mg oral 0-19 tab, PO, l tablet 16:32: Daily, 0 David 00 Refill(s) metoprolol 2016-08 Yes 25 mg [...] INHALATION l 0.09 05:38: , Q4H, PRN [place] MG/ACTUAT 00 as needed Dry Powder for Inhaler shortness of breath or wheezing, # 1 box, 0 Refill(s) Albuterol No Notes: SEE Me moria 0.83 MG/ML 12-07 RT l Inhalant 05:02: DOCUMENTAT [place] Solution 00 ION (Same as: Proventil) Ipratropium No Notes: SEE Memoria 17 RT l 05:02: DOCUMENTAT David 00 ION (Same as:Atroven t) Solu-Medrol No Notes: Connor beto 17 (Same l 05:02: as:Solu-ME David 00 DROL, A-Methapre d) Furosemide Yes 40 mg = 1 Me moria 40 MG Oral 3-21 tab, PO, l Tablet 07:30: Daily, # David 00 30 tab, 0 Refill(s) Lasix No Notes: Memoria -21 (Same as: l 06:29: Lasix) [place] 00 MEDICATION WASTE Product Size: 40 mg Product Wasted: ___ mg Furosemide No Notes: Memor ia 40 MG Oral 11-10 (Same as: l Tablet 05:00: Lasix) December Nay nn [Lasix] 00 cause GI upset. Give with food or milk. clopidogrel Yes 75mg QD Take 75 mg [facility] (PLAVIX) 75 05-[address] mg tablet 14:01: daily. Hospit a 44 l furosemide Yes 40mg Q.5D Take 40 mg [facility] (LASIX) 40 05-[address] MG tablet 14:01: (two) Hospita 44 times a l day. glimepiride Yes 2mg Q.5D Take 2 mg M [facility] (AMARYL) 2 05-[address] MG tablet 14:01: (two) Hospita 44 times a l day with meals. hydrALAZINE Yes 50mg Q.[id number] Take 50 mg [facility] (APRESOLINE 05-13 [id number] mouth [facility] ) 50 MG 14:01: 3D (three) Hospita tablet 44 times a l day. isosorbide Yes 20mg Q.[id number] Take 20 mg [facility] dinitrate 05-13 [id number] [facility] [address] (ISORDIL) 14:01: 3D (three) Hospi ta 20 MG 44 times a l tablet day. potassium 2016-0 Yes 20meq QD Take 20 Meth alex chloride 9-[address] (K-DUR) 20 14:01: mouth Hospit a MEQ CR 44 daily. l tablet aspirin 2016-0 Yes 81mg QD Take 81 mg Meth alex (ECOTRIN) 9-[address] 81 MG 14:01: daily. Hospita enteric 44 l coated tablet amLODIPine 2016-0 Yes 10mg QD Take 10 mg M ethodi (NORVASC) 9-[address] 10 MG 14:01: daily. Hospita tablet 44 l clopidogrel 2015-0 Yes 75mg QD Take 75 mg [facility] (PLAVIX) 75 9-[address] mg tablet 14:01: daily. Hospit a 44 l furosemide 2015-0 Yes 40mg Q.5D Take 40 mg M [facility] (LASIX) 40 - by mouth [facility] MG tablet 14:01: (two) Hospita 44 times a l day. glimepiride 2015-0 Yes 2mg Q.5D Take 2 mg M ethodi (AMARYL) 2 - by mouth [facility] MG tablet 14:01: (two) Hospita 44 times a l day with meals. hydrALAZINE 2015-0 Yes 50mg Q.[id number] Take 50 mg [facility] (APRESOLINE - [id number] by mouth 3 [facility] ) 50 MG 14:01: 3D (three) Hospita tablet 44 times a l day. isosorbide 2015-0 Yes 20mg Q.00715122 Take 20 mg [facility] dinitrate - [id number] by mouth [facility] (ISORDIL) 14:01: 3D (three) Hospi ta 20 MG 44 times a l tablet day. potassium 2016-0 Yes 20meq QD Take 20 Meth alex chloride 9-[address] (K-DUR) 20 14:01: mouth Hospit a MEQ CR 44 daily. l tablet aspirin 2015-0 Yes 81mg QD Take 81 mg Meth alex (ECOTRIN) 9-[address] 81 MG 14:01: daily. Hospita enteric 44 l coated tablet amLODIPine 2015-0 Yes 10mg QD Take 10 mg M ethodi (NORVASC) 9-[address] 10 MG 14:01: daily. Hospita tablet 44 l clopidogrel 2016-0 Yes 75mg QD Take 75 mg [facility] (PLAVIX) 75 9-[address] mg tablet 14:01: daily. Hospit a 44 l furosemide 2016-0 Yes 40mg Q.5D Take 40 mg M [facility] (LASIX) 40 9-[address] MG tablet 14:01: (two) Hospita 44 times a l day. glimepiride 2015-0 Yes 2mg Q.5D Take 2 mg M [facility] (AMARYL) 2 -[address] MG tablet 14:01: (two) Hospita 44 times a l day with meals. hydrALAZINE 2015-0 Yes 50mg Q.[id number] Take 50 mg [facility] (APRESOLINE 05-13 [id number] mouth [address] [facility] ) 50 MG 14:01: 3D (three) Hospita tablet 44 times a l day. isosorbide 2015-0 Yes 20mg Q.[id number] Take 20 mg [facility] dinitrate 05-13 [id number] [facility] [address] (ISORDIL) 14:01: 3D (three) Hospi ta 20 MG 44 times a l tablet day. potassium 2015-0 Yes 20meq QD Take 20 Meth alex chloride 9-[address] (K-DUR) 20 14:01: mouth Hospit a MEQ CR 44 daily. l tablet aspirin 2015-0 Yes 81mg QD Take 81 mg Meth alex (ECOTRIN) 9-[address] 81 MG 14:01: daily. Hospita enteric 44 l coated tablet amLODIPine 2015-0 Yes 10mg QD Take 10 mg M [facility] (NORVASC) 9-[address] 10 MG 14:01: daily. Hospita tablet 44 l clopidogrel 2016-0 Yes 75mg QD Take 75 mg [facility] (PLAVIX) 75 9-[address] mg tablet 14:01: daily. Hospit a 44 l furosemide 2015-0 Yes 40mg Q.5D Take 40 mg M [facility] (LASIX) 40 9-[address] MG tablet 14:01: (two) Hospita 44 times a l day. glimepiride 2015-0 Yes 2mg Q.5D Take 2 mg M [facility] (AMARYL) 2 9-[address] MG tablet 14:01: (two) Hospita 44 times a l day with meals. hydrALAZINE Yes 50mg Q.[id number] Take 50 mg [facility] (APRESOLINE 05-13 [id number] [address] mouth [address] ) 50 MG 14:01: 3D (three) Hospita tablet 44 times a l day. isosorbide Yes 20mg Q.75613051 Take 20 mg [facility] dinitrate 05-[id number] [facility] [address] (ISORDIL) 14:01: 3D (three) Hospi ta 20 MG 44 times a l tablet day. potassium Yes 20meq QD Take 20 Meth alex chloride - mEq by st (K-DUR) 20 14:01: mouth Hospit a MEQ CR 44 daily. l tablet aspirin Yes 81mg QD Take 81 mg Meth alex (ECOTRIN) 05-[address] 81 MG 14:01: daily. Hospita enteric 44 l coated tablet amLODIPine Yes 10mg QD Take 10 mg M ethod[facility] (NORVASC) 05-[address] 10 MG 14:01: daily. Hospita tablet 44 l AmLODIPine AmLODIPine Yes [place] Besylate 10 Besylate 10 P hysici MG Oral MG Oral ans Tablet Tablet Metoprolol Metoprolol Yes [facility] Tartrate 25 Tartrate 25 P hysici MG Oral MG Oral ans Tablet Tablet Furosemide Furosemide Yes [facility] 40 MG Oral 40 MG Oral Phy sici Tablet Tablet ans Pravastatin Pravastatin Yes U T Sodium 40 Sodium 40 Physi ci MG Oral MG Oral ans Tablet Tablet Losartan Losartan Yes [facility] Potassium Potassium Physi ci 25 MG Oral 25 MG Oral ans Tablet Tablet Bumetanide Bumetanide Yes [facility] TABS TABS Physici ans HydrALAZINE HydrALAZINE Yes U T HCl - 100 HCl - 100 Physi ci MG Oral MG Oral ans Tablet Tablet Clopidogrel Clopidogrel Yes U T Bisulfate Bisulfate Physi ci 75 MG Oral 75 MG Oral ans Tablet Tablet Glimepiride Glimepiride Yes U T 2 MG Oral 2 MG Oral Physi ci Tablet Tablet ans Sarthak Low Sarthak Low Yes [facility] Dose 81 MG Dose 81 MG Phy sici Oral Tablet Oral Tablet a ns Delayed Delayed Release Release Immunizations Ordered Filled Immunization Date Status Comments Sourc e Immunization Name Name SARS-COV-2 COVID-19 2022-03-05 Completed Unive rsity of MODERNA VACCINE 00:00:[address] [facility] SARS-COV-2 COVID-19 2022-03-05 Completed Unive rsity of MODERNA VACCINE 00:00:[address] [facility] SARS-COV-2 COVID-19 2022-03-05 Completed Unive rsity of MODERNA VACCINE 00:00:[address] [facility] SARS-COV-2 COVID-19 2022-03-05 Completed Unive rsity of MODERNA VACCINE 00:00:[address] [facility] SARS-COV-2 COVID-19 2022-03-05 Completed Unive rsity of MODERNA VACCINE 00:00:[address] [facility] Influenza Virus 2021-05-27 Completed Universit y of Vaccine Quad IM 3+ 00:00:00 [facility] Influenza Virus 2021-05-27 Completed [facility]it y of Vaccine Quad IM 3+ 00:00:00 [facility] Influenza Virus 2021-05-27 Completed [facility]it y of Vaccine Quad IM 3+ 00:00:00 [facility] Influenza Virus 2021-05-27 Completed [facility]it y of Vaccine Quad IM 3+ 00:00:00 [facility] Influenza Virus 2021-05-27 Completed [facility]it y of Vaccine Quad IM 3+ 00:00:00 [facility] Influenza Virus 2021-05-27 Completed [facility]it y of Vaccine Quad IM 3+ 00:00:00 [facility] Influenza Virus 2021-05-27 Completed [facility]it y of Vaccine Quad IM 3+ 00:00:00 [facility] Influenza Virus 2021-05-27 Completed [facility]it y of Vaccine Quad IM 3+ 00:00:00 [facility] Influenza Virus 2021-05-27 Completed [facility]it y of Vaccine Quad IM 3+ 00:00:00 [facility] Influenza Virus 2021-05-27 Completed Universit y of Vaccine Quad IM 3+ 00:00:00 [facility] Influenza Virus 2021-05-27 Completed [facility]it y of Vaccine Quad IM 3+ 00:00:00 [facility] SARS-COV-2 COVID-19 2021-05-01 Completed Unive rsity of MODERNA VACCINE 00:00:[address] [facility] SARS-COV-2 COVID-19 2021-05-01 Completed Unive rsity of MODERNA VACCINE 00:00:00 [place] [facility] SARS-COV-2 COVID-19 2021-05-01 Completed Unive rsity of MODERNA VACCINE 00:00:00 [place] [facility] SARS-COV-2 COVID-19 2021-05-01 Completed Unive rsity of MODERNA VACCINE 00:00:00 [place] [facility] SARS-COV-2 COVID-19 2021-05-01 Completed Unive rsity of MODERNA VACCINE 00:00:00 [place] [facility] SARS-COV-2 COVID-19 2021-05-01 Completed Unive rsity of MODERNA VACCINE 00:00:00 [place] [facility] SARS-COV-2 COVID-19 2021-05-01 Completed Unive rsity of MODERNA VACCINE 00:00:00 [place] [facility] SARS-COV-2 COVID-19 2021-05-01 Completed Unive rsity of MODERNA VACCINE 00:00:00 [place] [facility] SARS-COV-2 COVID-19 2021-05-01 Completed Unive rsity of MODERNA VACCINE 00:00:00 [place] [facility] SARS-COV-2 COVID-19 2021-05-01 Completed Unive rsity of MODERNA VACCINE 00:00:00 [place] [facility] SARS-COV-2 COVID-19 2021-05-01 Completed Unive rsity of MODERNA VACCINE 00:00:[address] [place] [facility] ical Branch SARS-COV-2 COVID-19 2020-11-16 Completed Unive rsity of MODERNA VACCINE 00:00:00 [place] [facility] SARS-COV-2 COVID-19 2020-11-16 Completed Unive rsity of MODERNA VACCINE 00:00:00 [place] [facility] SARS-COV-2 COVID-19 2020-11-16 Completed Unive rsity of MODERNA VACCINE 00:00:00 [place] [facility] SARS-COV-2 COVID-19 2020-11-16 Completed Unive rsity of MODERNA VACCINE 00:00:00 [place] [facility] SARS-COV-2 COVID-19 2020-11-16 Completed Unive rsity of MODERNA VACCINE 00:00:00 [place] [facility] SARS-COV-2 COVID-19 2020-11-16 Completed Unive rsity of MODERNA VACCINE 00:00:00 [place] [facility] SARS-COV-2 COVID-19 2020-11-16 Completed Unive rsity of MODERNA VACCINE 00:00:00 [place] [facility] SARS-COV-2 COVID-19 2020-11-16 Completed Unive rsity of MODERNA VACCINE 00:00:00 [place] [facility] SARS-COV-2 COVID-19 2020-11-16 Completed Unive rsity of MODER[facility] VACCINE 00:00:00 [place] [facility] SARS-COV-2 COVID-19 2020-11-16 Completed [facility] VACCINE 00:00:[address] [place] [facility] SARS-COV-2 COVID-19 2020-11-16 Completed [facility] MODERNA VACCINE 00:00:[address] [place] [facility] SARS-COV-2 COVID-19 2020-10-19 Completed [facility] MODERNA VACCINE 00:00:[address] [place] [facility] SARS-COV-2 COVID-19 2020-10-19 Completed [facility] MODERNA VACCINE 00:00:[address] [place] [facility] SARS-COV-2 COVID-19 2020-10-19 Completed [facility] VACCINE 00:00:00 [place] [facility] SARS-COV-2 COVID-19 2020-10-19 Completed [facility] MODERNA VACCINE 00:00:[address] [place] [facility] SARS-COV-2 COVID-19 2020-10-19 Completed [facility] MODERNA VACCINE 00:00:[address] [place] [facility] SARS-COV-2 COVID-19 2020-10-19 Completed [facility] VACCINE 00:00:00 [place] [facility] SARS-COV-2 COVID-19 2020-10-19 Completed [facility] VACCINE 00:00:00 [place] [facility] SARS-COV-2 COVID-19 2020-10-19 Completed [facility] rsity of MODERNA VACCINE 00:00:[address] [place] [facility] ical Branch SARS-COV-2 COVID-19 2020-10-19 Completed Unive rsity of MODERNA VACCINE 00:00:[address] [facility] SARS-COV-2 COVID-19 2020-10-19 Completed Unive rsity of MODERNA VACCINE 00:00:[address] [facility] SARS-COV-2 COVID-19 2020-10-19 Completed Unive rsity of MODERNA VACCINE 00:00:[address] [facility] Influenza Virus 2020-05-14 Completed Universit y of Vaccine 00:00:00 [facility] Influenza Virus 2020-05-14 Completed Universit y of Vaccine Quad IM 3+ 00:00:00 [facility] Influenza Virus 2020-05-14 Completed Universit y of Vaccine 00:00:00 [facility] Influenza Virus 2020-05-14 Completed Universit y of Vaccine Quad IM 3+ 00:00:00 [facility] Influenza Virus 2020-05-14 Completed Universit y of Vaccine 00:00:00 [facility] Influenza Virus 2020-05-14 Completed Universit y of Vaccine Quad IM 3+ 00:00:00 [facility] Influenza Virus 2020-05-14 Completed Universit y of Vaccine 00:00:00 [facility] Influenza Virus 2020-05-14 Completed Universit y of Vaccine Quad IM 3+ 00:00:00 [facility] Influenza Virus 2020-05-14 Completed Universit y of Vaccine 00:00:00 [facility] Influenza Virus 2020-05-14 Completed Universit y of Vaccine Quad IM 3+ 00:00:00 [facility] Influenza Virus 2020-05-14 Completed Universit y of Vaccine 00:00:00 [facility] Influenza Virus 2020-05-14 Completed Universit y of Vaccine Quad IM 3+ 00:00:00 [facility] Influenza Virus 2020-05-14 Completed Universit y of Vaccine 00:00:00 [facility] Influenza Virus 2020-05-14 Completed Universit y of Vaccine Quad IM 3+ 00:00:00 [facility] Influenza Virus 2020-05-14 Completed Universit y of Vaccine 00:00:00 [facility] Influenza Virus 2020-05-14 Completed Universit y of Vaccine Quad IM 3+ 00:00:00 [facility] Influenza Virus 2020-05-14 Completed Universit y of Vaccine 00:00:00 [facility] Influenza Virus 2020-05-14 Completed Universit y of Vaccine Quad IM 3+ 00:00:00 [facility] Influenza Virus 2020-05-14 Completed Universit y of Vaccine 00:00:00 [facility] Influenza Virus 2020-05-14 Completed Universit y of Vaccine Quad IM 3+ 00:00:00 [facility] Influenza Virus 2020-05-14 Completed Universit y of Vaccine 00:00:00 [facility] Influenza Virus 2020-05-14 Completed Universit y of Vaccine Quad IM 3+ 00:00:00 [facility] HEP B, Adult Dosage 2018-08-04 Completed Unive rsity of 00:00:00 [facility] HEP B, Adult Dosage 2018-08-04 Completed Unive rsity of 00:00:00 [facility] HEP B, Adult Dosage 2018-08-04 Completed Unive rsity of 00:00:00 [facility] HEP B, Adult Dosage 2018-08-04 Completed Unive rsity of 00:00:00 [facility] HEP B, Adult Dosage 2018-08-04 Completed Unive rsity of 00:00:00 [facility] HEP B, Adult Dosage 2018-08-04 Completed Unive rsity of 00:00:00 [facility] HEP B, Adult Dosage 2018-08-04 Completed Unive rsity of 00:00:00 [facility] HEP B, Adult Dosage 2018-08-04 Completed Unive rsity of 00:00:00 [facility] HEP B, Adult Dosage 2018-08-04 Completed Unive rsity of 00:00:00 [facility] HEP B, Adult Dosage 2018-08-04 Completed Unive rsity of 00:00:00 [facility] HEP B, Adult Dosage 2018-08-04 Completed Unive rsity of 00:00:00 [facility] Pneumococcal 13 2018-06-15 Completed Universit y of Conjugate, PCV13 00:00:00 [place] [facility] (Prevnar 13) [facility] Pneumococcal 13 2018-06-15 Completed Universit y of Conjugate, PCV13 00:00:00 [place] [facility] (Prevnar 13) [facility] Pneumococcal 13 2018-06-15 Completed Universit y of Conjugate, PCV13 00:00:00 [place] [facility] (Prevnar 13) Branch Pneumococcal 13 2018-06-15 Completed Universit y of Conjugate, PCV13 00:00:00 [facility] dical (Prevnar 13) Branch Pneumococcal 13 2018-06-15 Completed Universit y of Conjugate, PCV13 00:00:00 [facility] dical (Prevnar 13) Branch Pneumococcal 13 2018-06-15 Completed Universit y of Conjugate, PCV13 00:00:00 [place] [facility] (Prevnar 13) Branch Pneumococcal 13 2018-06-15 Completed Universit y of Conjugate, PCV13 00:00:00 [place] [facility] (Prevnar 13) Branch Pneumococcal 13 2018-06-15 Completed Universit y of Conjugate, PCV13 00:00:00 [place] [facility] (Prevnar 13) [facility] Pneumococcal 13 2018-06-15 Completed Universit y of Conjugate, PCV13 00:00:00 [facility] dical (Prevnar 13) Branch Pneumococcal 13 2018-06-15 Completed Universit y of Conjugate, PCV13 00:00:00 [place] [facility] (Prevnar 13) Branch Pneumococcal 13 2018-06-15 Completed Universit y of Conjugate, PCV13 00:00:00 [facility] dical (Prevnar 13) Branch Influenza Virus 2018-05-03 Completed [facility] Vaccine 00:00:00 Influenza Virus 2018-05-03 Completed Universit y of Vaccine 00:00:00 [facility] Influenza Virus 2018-05-03 Completed Universit y of Vaccine 00:00:00 [facility] Influenza Virus 2018-05-03 Completed Universit y of Vaccine 00:00:00 [facility] Influenza Virus 2018-05-03 Completed Universit y of Vaccine 00:00:00 [facility] Influenza Virus 2018-05-03 Completed Universit y of Vaccine 00:00:00 [facility] Influenza Virus 2018-05-03 Completed Universit y of Vaccine 00:00:00 [facility] Influenza Virus 2018-05-03 Completed Universit y of Vaccine 00:00:00 [facility] Influenza Virus 2018-05-03 Completed Universit y of Vaccine 00:00:00 [facility] Influenza Virus 2018-05-03 Completed Universit y of Vaccine 00:00:00 [facility] Influenza Virus 2018-05-03 Completed Universit y of Vaccine 00:00:00 [facility] Influenza Virus 2018-05-03 Completed Universit y of Vaccine 00:00:00 [facility] Pneumococcal 2018-04-23 Completed [facility] Polysaccharide, 00:00:00 PPSV23 (PNEUMOVAX) Pneumococcal 2018-04-23 Completed [facility] f Polysaccharide, 00:00:00 [place] [facility] PPSV23 (PNEUMOVAX) Branch Pneumococcal 2018-04-23 Completed University o f Polysaccharide, 00:00:00 [place] [facility] PPSV23 (PNEUMOVAX) Branch Pneumococcal 2018-04-23 Completed University o f Polysaccharide, 00:00:00 [place] [facility] PPSV23 (PNEUMOVAX) Branch Pneumococcal 2018-04-23 Completed University o f Polysaccharide, 00:00:00 [place] [facility] PPSV23 (PNEUMOVAX) Branch Pneumococcal 2018-04-23 Completed University o f Polysaccharide, 00:00:00 [place] [facility] PPSV23 (PNEUMOVAX) Branch Pneumococcal 2018-04-23 Completed University o f Polysaccharide, 00:00:00 [place] [facility] PPSV23 (PNEUMOVAX) Branch Pneumococcal 2018-04-23 Completed University o f Polysaccharide, 00:00:00 [place] [facility] PPSV23 (PNEUMOVAX) Branch Pneumococcal 2018-04-23 Completed University o f Polysaccharide, 00:00:00 [place] [facility] PPSV23 (PNEUMOVAX) Branch Pneumococcal 2018-04-23 Completed University o f Polysaccharide, 00:00:00 [place] [facility] PPSV23 (PNEUMOVAX) Branch Pneumococcal 2018-04-23 Completed University o f Polysaccharide, 00:00:00 [place] [facility] PPSV23 (PNEUMOVAX) Branch Pneumococcal 2018-04-23 Completed University o f Polysaccharide, 00:00:00 [place] [facility] PPSV23 (PNEUMOVAX) Branch HEP B, Adult Dosage 2018-02-01 Completed Unive rsity of 00:00:00 [facility] HEP B, Adult Dosage 2018-02-01 Completed Unive rsity of 00:00:00 [facility] HEP B, Adult Dosage 2018-02-01 Completed Unive rsity of 00:00:00 [facility] HEP B, Adult Dosage 2018-02-01 Completed Unive rsity of 00:00:00 [place] [facility] HEP B, Adult Dosage 2018-02-01 Completed Unive rsity of 00:00:00 [facility] HEP B, Adult Dosage 2018-02-01 Completed Unive rsity of 00:00:00 [facility] HEP B, Adult Dosage 2018-02-01 Completed Unive rsity of 00:00:00 [facility] HEP B, Adult Dosage 2018-02-01 Completed Unive rsity of 00:00:00 [place] [facility] HEP B, Adult Dosage 2018-02-01 Completed Unive rsity of 00:00:00 [place] [facility] HEP B, Adult Dosage 2018-02-01 Completed Unive rsity of 00:00:00 [place] [facility] HEP B, Adult Dosage 2018-02-01 Completed Unive rsity of 00:00:00 [place] [facility] HEP B, Adult Dosage 2018-01-01 Completed Unive rsity of 00:00:00 [place] [facility] HEP B, Adult Dosage 2018-01-01 Completed Unive rsity of 00:00:00 [place] [facility] HEP B, Adult Dosage 2018-01-01 Completed Unive rsity of 00:00:00 [place] [facility] HEP B, Adult Dosage 2018-01-01 Completed Unive rsity of 00:00:00 [place] [facility] HEP B, Adult Dosage 2018-01-01 Completed Unive rsity of 00:00:00 [place] [facility] HEP B, Adult Dosage 2018-01-01 Completed Unive rsity of 00:00:00 [place] [facility] HEP B, Adult Dosage 2018-01-01 Completed Unive rsity of 00:00:00 [place] [facility] HEP B, Adult Dosage 2018-01-01 Completed Unive rsity of 00:00:00 [place] [facility] HEP B, Adult Dosage 2018-01-01 Completed Unive rsity of 00:00:00 [place] [facility] HEP B, Adult Dosage 2018-01-01 Completed Unive rsity of 00:00:00 [place] [facility] HEP B, Adult Dosage 2018-01-01 Completed Unive rsity of 00:00:00 [place] [facility] HEP B, Adult Dosage 2017-12-02 Completed Unive rsity of 00:00:00 [place] [facility] HEP B, Adult Dosage 2017-12-02 Completed Unive rsity of 00:00:00 [place] [facility] HEP B, Adult Dosage 2017-12-02 Completed Unive rsity of 00:00:00 [place] [facility] HEP B, Adult Dosage 2017-12-02 Completed Unive rsity of 00:00:00 [place] [facility] HEP B, Adult Dosage 2017-12-02 Completed Unive rsity of 00:00:00 [place] [facility] HEP B, Adult Dosage 2017-12-02 Completed Unive rsity of 00:00:00 [place] [facility] HEP B, Adult Dosage 2017-12-02 Completed Unive rsity of 00:00:00 [facility] HEP B, Adult Dosage 2017-12-02 Completed Unive rsity of 00:00:00 [facility] HEP B, Adult Dosage 2017-12-02 Completed Unive rsity of 00:00:00 [facility] HEP B, Adult Dosage 2017-12-02 Completed Unive rsity of 00:00:00 [facility] HEP B, Adult Dosage 2017-12-02 Completed Unive rsity of 00:00:00 [facility] Pneumococcal 2017-09-23 Completed University o f Polysaccharide, 00:00:00 [place] [facility] PPSV23 (PNEUMOVAX) Branch Pneumococcal 2017-09-23 Completed University o f Polysaccharide, 00:00:00 [place] [facility] PPSV23 (PNEUMOVAX) Branch Pneumococcal 2017-09-23 Completed University o f Polysaccharide, 00:00:00 [place] [facility] PPSV23 (PNEUMOVAX) Branch Pneumococcal 2017-09-23 Completed University o f Polysaccharide, 00:00:00 [place] [facility] PPSV23 (PNEUMOVAX) Branch Pneumococcal 2017-09-23 Completed University o f Polysaccharide, 00:00:00 [place] [facility] PPSV23 (PNEUMOVAX) Branch Pneumococcal 2017-09-23 Completed University o f Polysaccharide, 00:00:00 [place] [facility] PPSV23 (PNEUMOVAX) Branch Pneumococcal 2017-09-23 Completed University o f Polysaccharide, 00:00:00 [place] [facility] PPSV23 (PNEUMOVAX) Branch Pneumococcal 2017-09-23 Completed University o f Polysaccharide, 00:00:00 [place] [facility] PPSV23 (PNEUMOVAX) Branch Pneumococcal 2017-09-23 Completed University o f Polysaccharide, 00:00:00 [place] [facility] PPSV23 (PNEUMOVAX) Branch Pneumococcal 2017-09-23 Completed University o f Polysaccharide, 00:00:00 [place] [facility] PPSV23 (PNEUMOVAX) Branch Pneumococcal 2017-09-23 Completed University o f Polysaccharide, 00:00:00 [place] [facility] PPSV23 (PNEUMOVAX) Branch PPD (TB) 2017-09-21 Completed [facility] 00:00:00 PPD (TB) 2017-09-21 Completed [facility] 00:00:00 PPD (TB) 2017-09-21 Completed University of 00:00:00 [facility] PPD (TB) 2017-09-21 Completed University of 00:00:00 [facility] PPD (TB) 2017-09-21 Completed University of 00:00:00 [facility] PPD (TB) 2017-09-21 Completed University of 00:00: [facility] PPD (TB) 2017-09-21 Completed University of 00:00:00 [facility] PPD (TB) 2017-09-21 Completed University of 00:00:00 [facility] PPD (TB) 2017-09-21 Completed University of 00:00: [facility] PPD (TB) 2017-09-21 Completed University of 00:00:00 [facility] PPD (TB) 2017-09-21 Completed University of 00:00:00 [facility] PPD (TB) 2017-09-21 Completed University of 00:00:00 [facility] PPD (TB) 2017-09-21 Completed University of 00:00:00 [facility] Pneumococcal 2016-02-28 Completed [facility] Polysaccharide, 00:00:00 PPSV23 (PNEUMOVAX) Pneumococcal 2016-02-28 Completed University o f Polysaccharide, 00:00:00 [place] [facility] PPSV23 (PNEUMOVAX) Branch Pneumococcal 2016-02-28 Completed University o f Polysaccharide, 00:00:00 [place] [facility] PPSV23 (PNEUMOVAX) Branch Pneumococcal 2016-02-28 Completed University o f Polysaccharide, 00:00:00 [place] [facility] PPSV23 (PNEUMOVAX) Branch Pneumococcal 2016-02-28 Completed University o f Polysaccharide, 00:00:00 [place] [facility] PPSV23 (PNEUMOVAX) Branch Pneumococcal 2016-02-28 Completed University o f Polysaccharide, 00:00:00 [place] [facility] PPSV23 (PNEUMOVAX) Branch Pneumococcal 2016-02-28 Completed University o f Polysaccharide, 00:00:00 [place] [facility] PPSV23 (PNEUMOVAX) Branch Pneumococcal 2016-02-28 Completed University o f Polysaccharide, 00:00:00 [place] [facility] PPSV23 (PNEUMOVAX) Branch Pneumococcal 2016-02-28 Completed University o f Polysaccharide, 00:00:00 [place] [facility] PPSV23 (PNEUMOVAX) Branch Pneumococcal 2016-02-28 Completed University o f Polysaccharide, 00:00:00 [place] [facility] PPSV23 (PNEUMOVAX) Branch Pneumococcal 2016-02-28 Completed University o f Polysaccharide, 00:00:00 [place] [facility] PPSV23 (PNEUMOVAX) Branch Pneumococcal 2016-02-28 Completed University o f Polysaccharide, 00:00:00 [facility] PPSV23 (PNEUMOVAX) Branch Influenza Virus 2015-05-28 Completed Sahil Hernandez Vaccine Quad IM 3+ 00:00:00 [facility] Influenza Virus 2015-05-28 Completed Universit y of Vaccine Quad IM 3+ 00:00:00 [facility] Influenza Virus 2015-05-28 Completed Universit y of Vaccine Quad IM 3+ 00:00:00 [facility] Influenza Virus 2015-05-28 Completed Universit y of Vaccine Quad IM 3+ 00:00:00 [facility] Influenza Virus 2015-05-28 Completed Universit y of Vaccine Quad IM 3+ 00:00:00 [facility] Influenza Virus 2015-05-28 Completed Universit y of Vaccine Quad IM 3+ 00:00:00 [facility] Influenza Virus 2015-05-28 Completed Universit y of Vaccine Quad IM 3+ 00:00:00 [facility] Influenza Virus 2015-05-28 Completed Universit y of Vaccine Quad IM 3+ 00:00:00 [facility] Influenza Virus 2015-05-28 Completed Universit y of Vaccine Quad IM 3+ 00:00:00 [facility] Influenza Virus 2015-05-28 Completed Universit y of Vaccine Quad IM 3+ 00:00:00 [facility] Influenza Virus 2015-05-28 Completed Universit y of Vaccine Quad IM 3+ 00:00:00 [facility] Influenza Virus 2015-05-28 Completed Universit y of Vaccine Quad IM 3+ 00:00:00 [facility] Vital Signs Vital Name Observation Time Observation Value Comments Source Systolic blood 2022-03-12 135 mm[Hg] University of pressure 01:00:00 [facility] Diastolic blood 2022-03-12 68 mm[Hg] [facility] o f pressure 01:00:00 [facility] Heart rate 2022-03-12 50 /min [facility] 01:00:00 [facility] Respiratory rate 2022-03-12 21 /min [facility] 01:00:00 [facility] Oxygen saturation 2022-03-12 95 /min [facility] in Arterial blood 01:00:00 [facility] by Pulse oximetry [place] Body temperature 2022-03-11 35.78 Starla [facility] 23:48:00 [facility] Body height 2022-03-11 175.3 cm University of 23:48:00 [facility] Body weight 2022-03-11 95.255 kg University of 23:48:00 [facility] BMI 2022-03-11 31.01 kg/m2 University of 23:48:00 [facility] Systolic blood 2022-03-11 124 mm[Hg] University of pressure 21:07:00 [facility] Diastolic blood 2022-03-11 47 mm[Hg] University o f pressure 21:07:00 [facility] Heart rate 2022-03-11 53 /min University of 21:05:00 [facility] Body temperature 2022-03-11 36.11 Starla University of 21:05:00 [facility] Respiratory rate 2022-03-11 20 /min University of 21:05:00 [facility] Oxygen saturation 2022-03-11 92 /min University of in Arterial blood 21:05:00 [place] [facility] Pulse oximetry Branch Body weight 2022-03-10 82.5 kg University of 18:11:00 [facility] BMI 2022-03-10 26.86 kg/m2 University of 18:11:00 [facility] Body height 2022-02-26 175.3 cm University of 15:00:00 [facility] Systolic blood 2022-02-26 103 mm[Hg] University of pressure 15:00:00 [facility] Diastolic blood 2022-02-26 42 mm[Hg] University o f pressure 15:00:00 [facility] Heart rate 2022-02-26 54 /min University of 15:00:00 [facility] Body temperature 2022-02-26 36.44 Starla University of 15:00:00 [facility] Respiratory rate 2022-02-26 17 /min University of 15:00:00 [facility] Body height 2022-02-26 175.3 cm University of 15:00:00 [facility] Body weight 2022-02-26 95.3 kg University of 15:00:00 [facility] BMI 2022-02-26 31.03 kg/m2 University of 15:00:00 [facility] Oxygen saturation 2022-02-26 99 /min University of in Arterial blood 15:00:00 [place] [facility] Pulse oximetry Branch Systolic blood 2022-02-24 108 mm[Hg] University of pressure 17:58:00 [facility] Diastolic blood 2022-02-24 55 mm[Hg] University o f pressure 17:58:00 [facility] Heart rate 2022-02-24 65 /min University of 17:58:00 [facility] Body temperature 2022-02-24 36.78 Starla University of 17:58:00 [facility] Respiratory rate 2022-02-24 18 /min University of 17:58:00 [facility] Body height 2022-02-24 175.3 cm University of 17:58:00 [facility] Body weight 2022-02-24 95.255 kg University of 17:58:00 [facility] BMI 2022-02-24 31.01 kg/m2 University of 17:58:00 [facility] Oxygen saturation 2022-02-24 99 /min [facility] in Arterial blood 17:58:00 [facility] by Pulse oximetry Branch Systolic blood 2022-02-22 123 mm[Hg] University of pressure 01:57:00 [facility] Diastolic blood 2022-02-22 54 mm[Hg] University o f pressure 01:57:00 [facility] Heart rate 2022-02-22 49 /min [facility] of 01:57:00 [facility] Respiratory rate 2022-02-22 17 /min University of 01:57:00 [facility] Oxygen saturation 2022-02-22 98 /min [facility] in Arterial blood 01:57:00 [facility] by Pulse oximetry Branch Body temperature 2022-02-21 36.56 Starla University of 22:03:00 [facility] Body weight 2022-02-21 99.791 kg University of 22:03:00 [facility] BMI 2022-02-21 32.49 kg/m2 University of 22:03:00 [facility] Systolic blood 2022-02-09 154 mm[Hg] University of pressure 15:11:00 [facility] Diastolic blood 2022-02-09 65 mm[Hg] University o f pressure 15:11:00 [facility] Heart rate 2022-02-09 60 /min University of 15:11:00 [facility] Body temperature 2022-02-09 36.11 Satrla University of 15:11:00 [facility] Body height 2022-02-09 175.3 cm University of 15:11:00 [facility] Body weight 2022-02-09 95.255 kg [facility] 15:11:00 [facility] BMI 2022-02-09 31.01 kg/m2 [facility] 15:11:00 [facility] Oxygen saturation 2022-02-09 98 /min [facility] Arterial blood 15:11:00 [facility] by Pulse oximetry Branch Temperature Oral 2020-12-11 98.5 F [facility] rmann (F) 17:00:00 Heart Rate 2020-12-11 [facility] 17:00:00 Respitory Rate 2020-12-11 [facility] 17:00:00 Systolic (mm Hg) 2020-12-11 [facility] 17:00:00 Diastolic (mm Hg) 2020-12-11 [facility] 17:00:00 Temperature Oral 2020-12-11 98.6 F [facility] rmann (F) 13:00:00 Heart Rate 2020-12-11 [facility] 13:00:00 Respitory Rate 2020-12-11 [facility] 13:00:00 Systolic (mm Hg) 2020-12-11 [facility] 13:00:00 Diastolic (mm Hg) 2020-12-11 [facility] 13:00:00 Respitory Rate 2020-12-11 [facility] 11:59:00 Temperature Oral 2020-12-11 98.8 F [facility] rmann (F) 09:00:00 Heart Rate 2020-12-11 [...] 00:27:00 Temperature Oral 2017-08-11 98.6 F [facility] (F) 09:31:00 Respitory Rate 2017-08-11 [facility] 09:31:00 Systolic (mm Hg) 2017-08-11 [facility] 09:31:00 Diastolic (mm Hg) 2017-08-11 [facility] 09:31:00 Temperature Oral 2017-08-11 98.6 F [facility] (F) 06:26:00 Systolic (mm Hg) 2017-08-11 [facility] 06:26:00 Diastolic (mm Hg) 2017-08-11 [facility] 06:26:00 Respitory Rate 2017-08-11 [facility] 06:26:00 Systolic (mm Hg) 2017-08-11 [facility] 04:22:00 Diastolic (mm Hg) 2017-08-11 [facility] 04:22:00 Heart Rate 2017-08-11 [facility] 04:22:00 Respitory Rate 2017-08-11 [facility] 04:22:00 Temperature Oral 2017-08-11 98.4 F [facility] (F) 04:22:00 Heart Rate 2017-08-11 [facility] 02:09:00 Weight 2017-08-10 [facility] 22:12:00 Heart Rate 2017-08-10 [facility] 22:12:00 BP Systolic 2017-07-21 128 mm[Hg] Location: [facility]; [facility] 11:32:00 Position: Sitting BP Diastolic 2017-07-21 62 mm[Hg] Location: [facility] 11:32:00 Position: Sitting Weight 2017-07-21 228.375 [lb_av] [facility] 11:32:00 Body Mass Index 2017-07-21 33.73 kg/m2 [facility] Calculated 11:32:00 Temperature 2017-07-21 98.3 [degF] Method: Oral [facility] 11:32:00 Heart Rate 2017-07-21 64 /min Location: R [facility] 11:32:00 Brachial Artery; Quality: Normal Respiration Rate 2017-07-21 18 /min Quality: Normal [facility] 11:32:00 BP Systolic 2017-06-30 133 mm[Hg] Location: [facility] 11:39:00 Position: Sitting BP Diastolic 2017-06-30 73 mm[Hg] Location: [facility] 11:39:00 Position: Sitting Weight 2017-06-30 229.5 [lb_av] [facility] 11:39:00 Body Mass Index 2017-06-30 33.89 kg/m2 [facility] Calculated 11:39:00 Temperature 2017-06-30 97.4 [degF] Method: Oral [facility] 11:39:00 Heart Rate 2017-06-30 61 /min [facility] 11:39:00 Respiration Rate 2017-06-30 16 /min [facility] 11:39:00 Heart Rate 2017-06-25 [facility] 17[facility]57[facility] [...] [facility] shelbie 07:04:00 Systolic (mm Hg) 2016-11-10 [facility] rmann 07:04:00 Diastolic (mm Hg) 2016-11-10 [facility] ermann 07:04:00 Systolic (mm Hg) 2016-11-10 [facility] rmann 06:39:00 Diastolic (mm Hg) 2016-11-10 [facility] 06:39:00 Respitory Rate 2016-11-10 [facility] 06:39:00 Systolic (mm Hg) 2016-11-10 [facility] rmann 05:42:00 Diastolic (mm Hg) 2016-11-10 [facility] 05:42:00 Heart Rate 2016-11-10 [facility] 05:42:00 Respitory Rate 2016-11-10 [facility]bie 05:42:00 Heart Rate 2016-11-10 [facility] 04:19:00 Temperature Oral 2016-11-10 96.2 F [facility] rmann (F) 04:19:00 Heart Rate 2016-11-10 Sahil Palmeran n 01:31:00 Temperature Oral 2016-11-10 96.2 F [facility] rmann (F) 01:31:00 BMI Calculated 2016-11-09 [facility] 17:24:00 Weight 2016-11-09 [facility] 17:24:00 Height 2016-11-09 175.26 cm [facility] 17:24:00 Procedures Procedure Date / Time Performing Clinician Source Performed POCT GLUCOSE (AUTOMATED) 2022-03-11 21:40:00 [facility] 2022-03-11 17:05:00 [facility] ([facility]OMATED) 2022-03-11 13:15:00 [facility] BASIC METABOLIC PANEL 2022-03-11 09:54:00 [facility] ([facility], K, CL, CO2, GLUCOSE, [facility] BUN, CREATININE, CA) CBC WITH DIFF 2022-03-11 09:54:00 [facility]R 2022-03-11 09:54:00 Yvon Irving [facility] POCT GLUCOSE (AUTOMATED) 2022-03-11 01:40:00 [facility] (AUTOMATED) 2022-03-10 21:48:00 [facility] COVID-19 (ID NOW RAPID 2022-03-10 19:28:00 Tino Pham [facility] TESTING) [facility] LAB ONLY COVID 2022-03-10 19:28:00 Ankit Tino [facility] INTERPRETATION [facility] POCT GLUCOSE (AUTOMATED) 2022-03-10 19:08:00 [facility] POCT GLUCOSE (AUTOMATED) 2022-03-10 18:18:00 [facility] POST DIALYSIS BUN 2022-03-10 17:45:00 [facility] POCT GLUCOSE (AUTOMATED) 2022-03-10 14:24:00 [facility] BLOOD UREA NITROGEN 2022-03-10 13:49:00 Cruz Schneider [facility] POST DIALYSIS BUN 2022-03-10 13:49:00 [facility] POCT GLUCOSE (AUTOMATED) 2022-03-10 12:33:00 Zoraida [facility] MAGNESIUM 2022-03-10 09:09:00 Ankit [facility] BASIC METABOLIC PANEL 2022-03-10 09:09:00 Tino Pham [facility] (NA, K, CL, CO2, GLUCOSE, [facility] BUN, CREATININE, CA) CBC WITH DIFF 2022-03-10 09:09:00 Ankit [facility] PROTHROMBIN TIME / INR 2022-03-10 09:09:00 Yvon Irving [facility] POCT GLUCOSE (AUTOMATED) 2022-03-10 01:34:00 [facility] POCT GLUCOSE (AUTOMATED) 2022-03-09 21:50:00 Zoraida Galarza iversity of [facility] POCT GLUCOSE (AUTOMATED) 2022-03-09 17:28:00 Zoraida Galarza Un iversity of [facility] POCT GLUCOSE (AUTOMATED) 2022-03-09 13:54:00 Zoraida Galarza Un iversity of [facility] PROTHROMBIN TIME / INR 2022-03-09 09:55:00 [facility] POCT GLUCOSE (AUTOMATED) 2022-03-09 02:32:00 Zoraida Galarza Un iversity of [facility] POCT GLUCOSE (AUTOMATED) 2022-03-08 22:30:00 Zoraida Galarza Un iversity of [facility] POCT GLUCOSE (AUTOMATED) 2022-03-08 18:20:00 Zoraida Galarza Un iversity of [facility] POCT GLUCOSE (AUTOMATED) 2022-03-08 13:52:00 Zoraida Galarza iversity of [facility] MAGNESIUM 2022-03-08 10:37:[address] [facility] BASIC METABOLIC PANEL 2022-03-08 10:37:00 [facility] (NA, K, CL, CO2, GLUCOSE, [facility] BUN, CREATININE, CA) CBC WITH DIFF 2022-03-08 10:37:00 Ankit [facility] PROTHROMBIN TIME / INR 2022-03-08 10:37:00 [facility] POCT GLUCOSE (AUTOMATED) 2022-03-08 09:03:00 Zoraida Galarza iversity of [facility] POCT GLUCOSE (AUTOMATED) 2022-03-08 04:49:00 Zoraida Galarza Un iversity of [facility] POCT GLUCOSE (AUTOMATED) 2022-03-07 22:02:00 Zoraida Galarza Un iversity of [facility] POCT GLUCOSE (AUTOMATED) 2022-03-07 14:19:00 Zoraida Galarza Un iversity of [facility] MAGNESIUM 2022-03-07 10:20:00 Ankit [facility] BASIC METABOLIC PANEL 2022-03-07 10:20:00 Tino Pham [facility] (NA, K, CL, CO2, GLUCOSE, [facility] BUN, CREATININE, CA) CBC WITH DIFF 2022-03-07 10:20:00 Ankit [facility] o f [facility] PROTHROMBIN TIME / INR 2022-03-07 10:20:00 [facility] POCT GLUCOSE (AUTOMATED) 2022-03-07 01:37:00 Zoraida Galarza Un iversity of [facility] POCT GLUCOSE (AUTOMATED) 2022-03-06 22:04:00 Zoraida Galarza Un iversity of [facility] POCT GLUCOSE (AUTOMATED) 2022-03-06 20:36:00 Zoraida Galarza Un iversity of [facility] POCT GLUCOSE (AUTOMATED) 2022-03-06 18:05:00 Zoraida Galarza iversity of [facility] POCT GLUCOSE (AUTOMATED) 2022-03-06 16:55:00 Zoraida Galarza Un iversity of [facility] POCT GLUCOSE (AUTOMATED) 2022-03-06 13:52:00 [facility] PROTHROMBIN TIME / INR 2022-03-06 11:24:00 Yvon [facility] POCT GLUCOSE (AUTOMATED) 2022-03-06 03:23:00 Zoraida Galarza iversity of [facility] POCT GLUCOSE (AUTOMATED) 2022-03-05 22:16:00 Zoraida Galarza Un iversity of [facility] POCT GLUCOSE (AUTOMATED) 2022-03-05 18:49:00 Zoraida Galarza iversity of [facility] POCT GLUCOSE (AUTOMATED) 2022-03-05 15:16:00 [facility] EXTRA TUBE LT. BLUE 2022-03-05 07:18:00 Zoraida Galarza [facility]y [facility] PROTHROMBIN TIME / INR 2022-03-05 07:15:00 Yvon [facility] ACTIVATED PARTIAL 2022-03-05 07:15:00 Soren Smiley [facility] EXTRA TUBE RED 2022-03-05 06:08:00 Zoraida Galarza [facility] POCT GLUCOSE (AUTOMATED) 2022-03-05 01:05:00 [facility] POCT GLUCOSE (AUTOMATED) 2022-03-04 23:31:00 [facility] POCT GLUCOSE (AUTOMATED) 2022-03-04 18:39:00 [facility] 2022-03-04 17:31:00 Baljit [facility] POCT GLUCOSE (AUTOMATED) 2022-03-04 14:08:00 [facility] PHOSPHORUS 2022-03-04 10:16:00 [facility] 2022-03-04 10:16:00 Amelia [facility] BASIC METABOLIC PANEL 2022-03-04 10:16:00 Marcelina Cisneros [facility] (NA, K, CL, CO2, GLUCOSE, [facility] BUN, CREATININE, CA) CBC WITH DIFF 2022-03-04 10:16:00 Amelia [facility] PROTHROMBIN TIME / INR 2022-03-04 10:16:00 Yvon [facility] ACTIVATED PARTIAL 2022-03-04 10:16:00 Baljit Soren [facility] POCT GLUCOSE (AUTOMATED) 2022-03-04 00:49:00 [facility] ACT[facility] PARTIAL 2022-03-03 20:58:00 Baljit [facility] POCT GLUCOSE (AUTOMATED) 2022-03-03 17:24:00 [facility] POCT GLUCOSE (AUTOMATED) 2022-03-03 17:22:00 Zoraida [facility] POCT GLUCOSE (AUTOMATED) 2022-03-03 17:01:00 [facility] ACT[facility] PART[facility] 2022-03-03 14:45:00 Maria Fernanda [facility] POCT GLUCOSE (AUTOMATED) 2022-03-03 09:58:00 Zoraida [facility] BASIC METABOLIC PANEL 2022-03-03 08:07:00 Tino Pham [facility] (NA, K, CL, CO2, GLUCOSE, [facility] BUN, CREATININE, CA) CBC WITH DIFF 2022-03-03 08:07:00 [facility] PROTHROMBIN TIME / INR 2022-03-03 08:07:00 Yvon Irving [facility] ACTIVATED PARTIAL 2022-03-03 08:07:00 Baljit [facility] POCT GLUCOSE (AUTOMATED) 2022-03-03 03:43:00 [facility] POCT GLUCOSE (AUTOMATED) 2022-03-03 03:13:00 Zoraida [facility] POCT GLUCOSE (AUTOMATED) 2022-03-02 21:49:00 [facility] COVID-19 (ID NOW RAPID 2022-03-02 21:49:00 Marcelina Cisneros [facility] TESTING) [facility] LAB ONLY COVID 2022-03-02 21:49:00 Marcelina Cisneros [facility] INTERPRETATION [facility] ACTIVATED PARTIAL 2022-03-02 19:29:00 Baljit [facility] POCT GLUCOSE (AUTOMATED) 2022-03-02 17:34:00 Zoraida Galarza Un iversity [facility] POCT GLUCOSE (AUTOMATED) 2022-03-02 14:26:00 Zoraida Galarza Un iversity [facility] MAGNESIUM 2022-03-02 08:22:00 Ankit [facility] BASIC METABOLIC PANEL 2022-03-02 08:22:00 Ankit Tino [facility] (NA, K, CL, CO2, GLUCOSE, [facility] BUN, CREATININE, CA) CBC WITH DIFF 2022-03-02 08:22:00 Ankit [facility] PROTHROMBIN TIME / INR 2022-03-02 08:22:00 Maria Fernanda [facility] POCT GLUCOSE (AUTOMATED) 2022-03-02 02:00:00 Zoraida Galarza Un iversity [facility] POCT GLUCOSE (AUTOMATED) 2022-03-01 22:24:00 Zoraida Galarza Un iversity [facility] POCT GLUCOSE (AUTOMATED) 2022-03-01 19:43:00 Zoraida Galarza Un iversity [facility] ACTIVATED PARTIAL 2022-03-01 18:25:00 Callie [facility] POCT GLUCOSE (AUTOMATED) 2022-03-01 13:30:00 Zoraida [facility] PROTHROMBIN TIME / INR 2022-03-01 10:10:00 Zoraida Galarza [facility] ACTIVATED PARTIAL 2022-03-01 10:10:00 Callie [facility] BASIC METABOLIC PANEL 2022-03-01 10:09:00 Maria Fernanda [facility] (NA, K, CL, CO2, GLUCOSE, [facility] BUN, CREATININE, CA) CBC WITH DIFF 2022-03-01 10:09:00 Maria Fernanda [facility] POCT GLUCOSE (AUTOMATED) 2022-03-01 05:03:00 Zoraida Galarza Un iversity of [facility] POCT GLUCOSE (AUTOMATED) 2022-03-01 02:18:00 Zoraida Galarza Un iversity of [facility] POCT GLUCOSE (AUTOMATED) 2022-02-28 22:05:00 Zoraida Galarza Un iversity of [facility] POCT GLUCOSE (AUTOMATED) 2022-02-28 22:04:00 Zoraida Galarza Un iversity of [facility] POCT GLUCOSE (AUTOMATED) 2022-02-28 22:02:00 [facility] 2022-02-28 21:55:00 Baljit [facility] POCT GLUCOSE (AUTOMATED) 2022-02-28 18:29:00 [facility] PO[facility]UCOSE (AUTOMATED) 2022-02-28 16:28:00 Zoraida Galarza [facility] ACTIVATED PARTIAL 2022-02-28 15:12:00 Baljit [facility] MRSA / MSSA SCREEN BY 2022-02-28 13:58:00 Cruz Schneider [facility] POCT GLUCOSE (AUTOMATED) 2022-02-28 12:45:00 [facility] PO[facility]SE (AUTOMATED) 2022-02-28 10:30:00 Zoraida Galarza [facility] PHOSPHORUS 2022-02-28 07:26:00 Jp [facility] MAGNESIUM 2022-02-28 07:26:00 Jp [facility] BASIC METABOLIC PANEL 2022-02-28 07:26:00 Jp [facility] (NA, K, CL, CO2, GLUCOSE, [facility] BUN, CREATININE, CA) CBC WITH DIFF 2022-02-28 07:26:00 Jp [facility] ACTIVATED PARTIAL 2022-02-28 07:26:00 [facility] ACTIVATED PARTIAL 2022-02-28 04:03:00 Baljit [facility] POCT GLUCOSE (AUTOMATED) 2022-02-28 01:20:00 [facility] PO[facility]SE (AUTOMATED) 2022-02-27 22:05:00 Zoraida Galarza [facility] ACTIVATED PARTIAL 2022-02-27 21:02:00 Baljit [facility] ACTIVATED PARTIAL 2022-02-27 19:31:00 Baljit [facility] POCT GLUCOSE (AUTOMATED) 2022-02-27 17:52:00 Zoraida Galarza Un iversity of [facility] POCT GLUCOSE (AUTOMATED) 2022-02-27 17:52:00 Zoraida Galarza Un iversity of [facility] POCT GLUCOSE (AUTOMATED) 2022-02-27 13:34:00 Zoraida Galarza Un iversity of [facility] POCT GLUCOSE (AUTOMATED) 2022-02-27 13:34:00 Zoraida Galarza iversity of [facility] BASIC METABOLIC PANEL 2022-02-27 07:18:00 Marcelina Cisneros [facility] [place] (NA, K, CL, CO2, GLUCOSE, [facility] BUN, CREATININE, CA) CBC WITH DIFF 2022-02-27 07:18:00 Marcelina Cisneros [facility] ACTIVATED PARTIAL 2022-02-27 07:18:00 Baljit [facility] BASIC METABOLIC PANEL 2022-02-27 07:18:00 [facility] (NA, K, CL, CO2, GLUCOSE, [facility] BUN, CREATININE, CA) CBC WITH DIFF 2022-02-27 07:18:00 Marcelina Cisneros [facility] ACTIVATED PARTIAL 2022-02-27 07:18:00 Baljit [facility] POCT GLUCOSE (AUTOMATED) 2022-02-27 00:41:00 Zoraida Galarza iversity of [facility] POCT GLUCOSE (AUTOMATED) 2022-02-27 00:41:00 Zoraida Galarza Un iversity of [facility] POCT GLUCOSE (AUTOMATED) 2022-02-26 16:59:00 Zoraida Galarza Un iversity of [facility] POCT GLUCOSE (AUTOMATED) 2022-02-26 16:59:00 Zoraida Galarza Un iversity of [facility] POCT GLUCOSE (AUTOMATED) 2022-02-26 15:52:00 [facility] (AUTOMATED) 2022-02-26 15:52:00 [facility] SURGICAL PATHOLOGY EXAM 2022-02-26 14:14:00 [facility] ABOVE THE KNEE AMPUTATION 2022-02-26 12:15:00 Enrike [facility]houry [facility] ABOVE THE KNEE AMPUTATION 2022-02-26 12:15:00 [facility] PO[facility]SE (AUTOMATED) 2022-02-26 11:32:00 Zoraida Galarza Un iversity [facility] POCT GLUCOSE (AUTOMATED) 2022-02-26 11:32:00 Zoraida [facility] POCT GLUCOSE (AUTOMATED) 2022-02-26 11:01:00 [facility] PO[facility]SE (AUTOMATED) 2022-02-26 11:01:00 Zroaida [facility] PHOSPHORUS 2022-02-26 09:48:00 Ankit [facility] MAGNESIUM 2022-02-26 09:48:[address] [facility] BASIC METABOLIC PANEL 2022-02-26 09:48:00 Ankit [facility] (NA, K, CL, CO2, GLUCOSE, [facility] BUN, CREATININE, CA) CBC WITH DIFF 2022-02-26 09:48:00 Ankit [facility] PHOSPHORUS 2022-02-26 09:48:00 Ankit [facility] MAGNESIUM 2022-02-26 09:48:00 Ankit [facility] BASIC METABOLIC PANEL 2022-02-26 09:48:00 Ankit [facility] (NA, K, CL, CO2, GLUCOSE, [facility] BUN, CREATININE, CA) CBC WITH DIFF 2022-02-26 09:48:00 Ankit [facility] POCT GLUCOSE (AUTOMATED) 2022-02-26 04:05:00 Zoraida Galarza iversity of [facility] POCT GLUCOSE (AUTOMATED) 2022-02-26 04:05:00 Zoraida Galarza Un iversity of [facility] POCT GLUCOSE (AUTOMATED) 2022-02-26 02:45:00 Zoraida Galarza iversity of [facility] POCT GLUCOSE (AUTOMATED) 2022-02-26 02:45:00 Zoraida Galarza iversity of [facility] POCT GLUCOSE (AUTOMATED) 2022-02-26 02:11:00 Zoraida Galarza iversity of [facility] POCT GLUCOSE (AUTOMATED) 2022-02-26 02:11:00 Zoraida Galarza iversity [facility] HB ABO GROUPING 2022-02-26 00:55:00 Marcelina Cisneros [facility] HB ABO GROUPING 2022-02-26 00:55:00 Marcelina Cisneros [facility] COVID-19 (ID NOW RAPID 2022-02-26 00:53:00 Marcelina Cisneros [facility] TESTING) [facility] LAB ONLY COVID 2022-02-26 00:53:00 Marcelina Cisneros [facility] INTERPRETATION [facility] COVID-19 (ID NOW RAPID 2022-02-26 00:53:00 Marcelina Cisneros [facility] TESTING) [facility] LAB ONLY COVID 2022-02-26 00:53:00 Marcelina Cisneros [facility] INTERPRETATION [facility] POCT GLUCOSE (AUTOMATED) 2022-02-25 22:33:00 Zoraida Galarza iversity of [facility] POCT GLUCOSE (AUTOMATED) 2022-02-25 22:33:00 Zoraida Galraza Un iversity [facility] ACTIVATED PARTIAL 2022-02-25 21:31:00 [facility] ACTIVATED PARTIAL 2022-02-25 21:31:00 [facility] RAKEL MULTI LEVEL - BY 2022-02-25 19:22:23 Soren Smiley [facility] VASCULAR LAB [facility] RAKEL MULTI LEVEL - BY 2022-02-25 19:22:23 Soren Smiley [facility] VASCULAR LAB [facility] POCT GLUCOSE (AUTOMATED) 2022-02-25 17:47:00 Zoraida Galarza iversity [facility] POCT GLUCOSE (AUTOMATED) 2022-02-25 17:47:00 Zoraida Galarza Un iversity [facility] POCT GLUCOSE (AUTOMATED) 2022-02-25 17:47:00 Zoraida Galarza iversity [facility] DUPLEX ARTERIAL LEG LEFT 2022-02-25 16:05:52 [facility] DUPLEX ARTERIAL LEG LEFT 2022-02-25 16:05:52 Soren Smiley versity [facility] VASCULAR [facility] POCT GLUCOSE (AUTOMATED) 2022-02-25 13:59:00 Zoraida Galarza iversity [facility] POCT GLUCOSE (AUTOMATED) 2022-02-25 13:59:00 Zoraida Galarza Un iversity [facility] POCT GLUCOSE (AUTOMATED) 2022-02-25 13:59:00 Zoraida [facility] PHOSPHORUS 2022-02-25 09:09:00 Soren Smiley [facility] MAGNESIUM 2022-02-25 09:09:00 Baljit [facility] BASIC METABOLIC PANEL 2022-02-25 09:09:00 Soren Smiley [facility] (NA, K, CL, CO2, GLUCOSE, [facility] BUN, CREATININE, CA) CBC WITH DIFF 2022-02-25 09:09:00 Baljit [facility] ACTIVATED PARTIAL 2022-02-25 09:09:00 [facility]-02-25 09:09:00 Baljit [facility] MAGNESIUM 2022-02-25 09:09:00 Baljit [facility] BASIC METABOLIC PANEL 2022-02-25 09:09:00 [facility], [facility] (NA, K, CL, CO2, GLUCOSE, [facility] BUN, CREATININE, CA) CBC WITH DIFF 2022-02-25 09:09:00 [facility] ACTIVATED PARTIAL 2022-02-25 09:09:00 [facility], [facility] PHOSPHORUS 2022-02-25 09:09:00 Nimmic [facility] MAGNESIUM 2022-02-25 09:09:00 [facility] BASIC METABOLIC PANEL 2022-02-25 09:09:00 [facility] (NA, K, CL, CO2, GLUCOSE, [facility] BUN, CREATININE, CA) CBC WITH DIFF 2022-02-25 09:09:00 [facility] ACTIVATED PARTIAL 2022-02-25 09:09:00 Nimmic, [facility] ACTIVATED PARTIAL 2022-02-25 01:44:00 Nimmic, [facility] ACTIVATED PARTIAL 2022-02-25 01:44:00 Nimmic, [facility] ACTIVATED PARTIAL 2022-02-25 01:44:00 [facility] POCT GLUCOSE (AUTOMATED) 2022-02-25 01:04:00 [facility] POCT GLUCOSE (AUTOMATED) 2022-02-25 01:04:00 Zoraida Galarza iversity [facility] POCT GLUCOSE (AUTOMATED) 2022-02-25 01:04:00 Zoraida Galarza iversity [facility] POCT GLUCOSE (AUTOMATED) 2022-02-24 22:00:00 Zoraida Galarza iversity [facility] POCT GLUCOSE (AUTOMATED) 2022-02-24 22:00:00 Zoraida Galarza iversity [facility] POCT GLUCOSE (AUTOMATED) 2022-02-24 22:00:00 [facility]oraida [facility] PROTHROMBIN TIME / INR 2022-02-24 21:56:00 Soren Smiley rsity of [facility] PROTHROMBIN TIME / INR 2022-02-24 21:56:00 Saleemgenesee hospitalSoren [facility] PROTHROMBIN TIME / INR 2022-02-24 21:56:00 CallieSoren [facility] [place] [facility] FL TIME OR 2022-02-24 21:34:00 [facility] (NON-REPORTABLE) Medical [facility] [place] TIME OR 2022-02-24 21:34:00 [facility] (NON-REPORTABLE) [facility] FL TIME OR 2022-02-24 21:34:00 [facility] (NON-REPORTABLE) [facility] ARTERIOGRAM 2022-02-24 18:58:00 Zoraida Galarza [facility] ARTERIOGRAM 2022-02-24 18:58:00 Zoraida Galarza [facility] POTASSIUM SERUM 2022-02-24 18:24:00 [facility] POTASSIUM SERUM 2022-02-24 18:24:00 [facility] POTASSIUM SERUM 2022-02-24 18:24:00 [facility] POCT GLUCOSE (AUTOMATED) 2022-02-24 18:20:00 [facility]ida [facility] POCT GLUCOSE (AUTOMATED) 2022-02-24 18:20:00 [facility]oraida [facility] POCT GLUCOSE (AUTOMATED) 2022-02-24 18:20:00 Zoraida Galarza [facility] CONSENT/REFUSAL FOR 2022-02-24 17:48:49 Doctor Unassigned, [facility] [place] DIAGNOS[facility] AND TREATMENT [facility] CONSENT/REFUSAL FOR 2022-02-24 17:48:49 Doctor Unassigned, [facility] CONSENT/REFUSAL FOR 2022-02-24 17:48:49 Doctor Unassigned, [facility] DIAGNOS[facility] AND TREATMENT [facility] ASSIGNMENT OF BENEFITS 2022-02-24 17:48:20 Doctor Unassigned, [facility] [place] [facility] ASSIGNMENT OF BENEFITS 2022-02-24 17:48:20 Doctor Unassigned, [facility] ASSIGNMENT OF BENEFITS 2022-02-24 17:48:20 Doctor Unassigned, [facility] PROTHROMBIN TIME / INR 2022-02-22 01:05:00 Og Antonio [facility] ACTIVATED PARTIAL 2022-02-22 01:05:00 Paco Og [facility] HEPARIN ANTI-XA, 2022-02-22 01:05:00 Paco [facility] UNFRACTIONATED HEPARIN [facility] COVID-19 (ID NOW RAPID 2022-02-21 23:45:00 [facility] Medical Branch COMP. 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 Test 10:36:47 2) [code = SHINGLES VACCINES (1 of 2)] Future Scheduled 2022-03-12 65+ PNEUMOCOCCAL VACCINE [facility] Test 10:36:47 (1 - PCV) [code = 65+ PNEUMOCOCCAL VACCINE (1 - PCV)] Future Scheduled 2022-03-12 INFLUENZA VACCINE [code [facility] Test 10:36:47 = INFLUENZA VACCINE] Future Scheduled 2021-11-26 COVID-19 VACCINE (1) [facility] Test 23:46:30 [code = COVID-19 VACCINE (1)] Future Scheduled 2021-11-26 COLONOSCOPY SCREENING [facility] Test 23:46:30 [code = COLONOSCOPY SCREENING] Future Scheduled 2021-11-26 SHINGLES VACCINES (#1) [facility] Test 23:46:30 [code = SHINGLES VACCINES (#1)] Future Scheduled 2021-11-26 INFLUENZA VACCINE [code [facility] Test 23:46:30 = INFLUENZA VACCINE] Future Scheduled 2021-11-26 COVID-19 VACCINE (1) [facility] Test 23:46:30 [code = COVID-19 VACCINE (1)] Future Scheduled 2021-11-26 COLONOSCOPY SCREENING [facility] Test 23:46:30 [code = COLONOSCOPY SCREENING] Future Scheduled 2021-11-26 SHINGLES VACCINES (#1) M [facility] Test 23:46:30 [code = SHINGLES VACCINES (#1)] Future Scheduled 2021-11-26 INFLUENZA VACCINE [code [facility] Test 23:46:30 = INFLUENZA VACCINE] Future Scheduled 2021-11-26 COVID-19 VACCINE (1) [facility] Test 23:46:30 [code = COVID-19 VACCINE (1)] Future Scheduled 2021-11-26 COLONOSCOPY SCREENING [facility] Test 23:46:30 [code = COLONOSCOPY SCREENING] Future Scheduled 2021-11-26 SHINGLES VACCINES (#1) M [facility] Test 23:46:30 [code = SHINGLES VACCINES (#1)] Future Scheduled 2021-11-26 INFLUENZA VACCINE [code [facility] Test 23:46:30 = INFLUENZA VACCINE] Future Scheduled Screening for malignant [facility] neoplasm of colon (procedure) [code = 952099850] Future Scheduled Depression screening [facility] (procedure) [code = 874136076] Future Scheduled Hemoglobin A1c [facility] measurement (procedure) [code = 45439783] Future Scheduled FLOW CYTOMETRY XM [facility] Test [code = 05037-3] Future Scheduled INFLUENZA VACCINE (#1) [facility] [code = INFLUENZA VACCINE (#1)] Future Scheduled Prostatic Specific [facility] Antigen (PSA) [code = 2857-1] Future Scheduled Serum Protein [facility] Electrophoresis - Age > 40 years old or UA w/+ protein. [code = 1879] Future Scheduled VZV Antibody Screen Connor [facility] Test [code = 29278-8] Future Scheduled GALV ONLY - SYPHILIS [facility] IGG/IGM [code = 27176-5] Future Scheduled HIV 1/2 AG-AB WITH [facility] REFLEX [code = 86274-4] Future Scheduled HAV Antibody (IGG & IGM) [facility] [code = 03186] Future Scheduled HCV Antibody [code = [facility] Test 08122-7] Future Scheduled HBC Antibody (IGM & IGG) [facility] [code = 2939] Future Scheduled Hepatitis B Surface Connor [facility] Test Antibody [code = 50049-7] Future Scheduled Hepatitis B Surface Connor [facility] Test Antigen [code = 64554-2] Future Scheduled Glycosylated Henoglobin [facility] Test (A1C) [code = 84439-9] Future Scheduled Glycosylated Henoglobin [facility] (A1C) [code = 70767-2] Future Scheduled Hepatitis B Surface Connor [facility] Test Antigen [code = 09868-0] Future Scheduled Hepatitis B Surface Connor [facility] Test Antibody [code = 47146-2] Future Scheduled HBC Antibody (IGM & IGG) [facility] [code = 2939] Future Scheduled HCV Antibody [code = [facility] Test 44635-4] Future Scheduled HAV Antibody (IGG & IGM) [facility] [code = 81252] Future Scheduled HIV 1/2 AG-AB WITH [facility] REFLEX [code = 70348-9] Future Scheduled GALV ONLY - SYPHILIS [facility] Test IGG/IGM [code = 50174-2] Future Scheduled VZV Antibody Screen [facility] Test [code = 38854-2] Future Scheduled Serum Protein [facility] Electrophoresis - Age > 40 years old or UA w/+ protein. [code = 1879] Future Scheduled Prostatic Specific [facility] Antigen (PSA) [code = 2857-1] Future Scheduled Antibody Screen (PRA [facility] Test (RENAL)) [code = 71929] Future Scheduled NM MYOCARDIUM PERFUSION [facility] STRESS AND REST [code = 13128] Future Scheduled NM NUCLEAR STRESS TEST [facility] CARDIOLOGY (do not sched) [code = 57467] Future Scheduled NM MYOCARDIUM PERFUSION [facility] STRESS AND REST [code = 07662] Future Scheduled NM NUCLEAR STRESS TEST [facility] CARDIOLOGY (do not sched) [code = 92085] Future Scheduled NM MYOCARDIUM PERFUSION [facility] STRESS AND REST [code = 69372] Future Scheduled NM NUCLEAR STRESS TEST [facility] CARDIOLOGY (do not sched) [code = 06353] Future Scheduled NM MYOCARDIUM PERFUSION [facility] STRESS AND REST [code = 25648] Future Scheduled NM MYOCARDIUM PERFUSION [facility] STRESS AND REST [code = 03581] Future Scheduled Hepatitis B Surface Connor [facility] Test Antigen [code = 26991-5] Future Scheduled Hepatitis B Surface Connor [facility] Test Antibody [code = 25881-5] Future Scheduled HBC Antibody (IGM & IGG) [facility] [code = 2939] Future Scheduled HCV Antibody [code = [facility] Test 98826-8] Future Scheduled HAV Antibody (IGG & IGM) [facility] Test [code = 35535] Future Scheduled Glycosylated Henoglobin [facility] Test (A1C) [code = 94024-7] Future Scheduled HIV 1/2 AG-AB WITH [facility] REFLEX [code = 95950-3] Future Scheduled VZV Antibody Screen Connor [facility] Test [code = 32734-8] Future Scheduled GALV ONLY - SYPHILIS [facility] IGG/IGM [code = 33273-2] Future Scheduled Prostatic Specific [facility] Antigen (PSA) [code = 2857-1] Future Scheduled Antibody Screen (PRA [facility] Test (RENAL)) [code = 32245] Future Scheduled Serum Protein [facility] Electrophoresis - Age > 40 years old or UA w/+ protein. [code = 1879] Future Scheduled XR CHEST 2 VW [code = Me [facility] Test 237] Future Scheduled CT ABDOMEN PELVIS W WO [facility] CONTRAST [code = 295] Future Scheduled FLOW CYTOMETRY [facility] CROSSMATCH [code = 49345-9] Future Scheduled FLOW CYTOMETRY [facility] CROSSMATCH [code = 94181-0] Future Scheduled FLOW CYTOMETRY [facility] CROSSMATCH [code = 61631-4] Future Scheduled LYMPHOCYTE CROSSMATCH Me [facility] Test [code = 99753] Future Scheduled LYMPHOCYTE CROSSMATCH [facility] Test [code = 21622] Future Scheduled LYMPHOCYTE CROSSMATCH [facility] Test [code = 90223] Future Scheduled Hemoglobin A1c [facility] measurement (procedure) [code = 65641561] Future Scheduled INFLUENZA VACCINE (#1) [facility] [code = INFLUENZA VACCINE (#1)] Future Scheduled ANTIBODY SCREEN [code = [facility] 65608] Future Scheduled ANTIBODY SCREEN [code = [facility] 93368] Future Scheduled Depression Screening [facility] Test [code = Depression Screening] Future Scheduled Glycosylated Henoglobin [facility] Test (A1C) [code = 98727-5] Future Scheduled Hepatitis B Surface Connor [facility] Test Antigen [code = 22341-8] Future Scheduled Hepatitis B Surface Connor [facility] Test Antibody [code = 53714-8] Future Scheduled HBC Antibody (IGM & IGG) [facility] Test [code = 2939] Future Scheduled HCV Antibody [code = [facility] Test 53914-5] Future Scheduled HAV Antibody (IGG & IGM) [facility] [code = 70091] Future Scheduled HIV 1/2 AG-AB WITH [facility] REFLEX [code = 97051-9] Future Scheduled Toxoplasma IGG Antibody [facility] [code = 2897] Future Scheduled VZV Antibody Screen Connor [facility] Test [code = 38258-8] Future Scheduled GALV ONLY - SYPHILIS [facility] IGG/IGM [code = 14518-4] Future Scheduled HSV 1 AND 2 GLYCOPROTEIN [facility] G IGG [code = NOE718384] Future Scheduled Prostatic Specific [facility] Antigen (PSA) [code = 2857-1] Future Scheduled Urinalysis (UA) [code = [facility] 21502-1] Future Scheduled Serum Protein [facility] Electrophoresis - Age > 40 years old or UA w/+ protein. [code = 1879] Future Scheduled Glycosylated Henoglobin [facility] (A1C) [code = 40284-1] Future Scheduled Hepatitis B Surface Connor [facility] Test Antigen [code = 56795-9] Future Scheduled Hepatitis B Surface [facility] Test Antibody [code = 10493-0] Future Scheduled HBC Antibody (IGM & IGG) [facility] Test [code = 2939] Future Scheduled HCV Antibody [code = [facility] Test 66047-0] Future Scheduled HAV Antibody (IGG & IGM) [facility] [code = 36011] Future Scheduled HIV 1/2 AG-AB WITH [facility] REFLEX [code = 45249-1] Future Scheduled Toxoplasma IGG Antibody [facility] [code = 2897] Future Scheduled VZV Antibody Screen Connor [facility] Test [code = 44432-4] Future Scheduled GALV ONLY - SYPHILIS [facility] IGG/IGM [code = 13996-4] Future Scheduled HSV 1 AND 2 GLYCOPROTEIN [facility] G IGG [code = NGZ010471] Future Scheduled Prostatic Specific [facility] Test Antigen (PSA) [code = 2857-1] Future Scheduled Antibody Screen (PRA [facility] Test (RENAL)) [code = 89561] Future Scheduled Urinalysis (UA) [code = [facility] 33527-1] Future Scheduled Serum Protein [facility] Electrophoresis - Age > 40 years old or UA w/+ protein. [code = 1879] Future Scheduled XR CHEST 2 VW [code = Me [facility] Test 237] Future Scheduled Creatinine measurement [facility] (procedure) [code = 26130034] Future Scheduled Calculated low density [facility] lipoprotein cholesterol level (procedure) [code = 979797756] Future Scheduled PNEUMOCOCCAL 0-64 YEARS [facility] COMBINED SERIES (3 of 4 - PCV13) [code = PNEUMOCOCCAL 0-64 YEARS COMBINED SERIES (3 of 4 - PCV13)] Future Scheduled Zoster Recombinant [facility] Vaccine (SHINGRIX) (1 of 2) [code = Zoster Recombinant Vaccine (SHINGRIX) (1 of 2)] Future Scheduled Screening for occult [facility] blood in feces (procedure) [code = 628662005] Future Scheduled Stool DNA-based [facility] colorectal cancer screening (procedure) [code = 214182531320388] Future Scheduled Flexible fiberoptic Connor [facility] Test sigmoidoscopy (procedure) [code = 38996753] Future Scheduled Screening for malignant [facility] neoplasm of colon (procedure) [code = 696889472] Future Scheduled DTaP,Tdap,and Td [facility] Vaccines (1 - Tdap) [code = DTaP,Tdap,and Td Vaccines (1 - Tdap)] Future Scheduled Diabetic foot [facility] examination (regime/therapy) [code = 948050833] Future Scheduled SARS-CoV-2 (COVID-19) Me [facility] Test Vaccine (1) [code = SARS-CoV-2 (COVID-19) Vaccine (1)] Future Scheduled Depression screening [facility] (procedure) [code = 313704814] Future Scheduled Depression Screening [facility] [code = Depression Screening] Future Scheduled DTaP,Tdap,and Td [facility] Vaccines (1 - Tdap) [code = DTaP,Tdap,and Td Vaccines (1 - Tdap)] Future Scheduled Examination of retina [facility] Test (procedure) [code = 757299681] Future Scheduled Medicare Annual Wellness [facility] Visit (procedure) [code = 159311301214576] Encounters Start End Encounter Admission Attending Care Care Encounter Source Date/Time Date/Time Type Type Clinicians Facility Department ID 2022-09-02 2022-09-02 Outpatient Trang PARKER [facility] [id number] Univers 00:00:00 00:00:00 JOSE ALFREDO [id number] [facility] 2022-05-11 2022-05-11 Outpatient Trang NELSON [facility] [id number] Univers 10:30:00 10:30:00 MICHELLE [facility] 2022-05-11 2022-05-11 Outpatient Trang PARKER [facility] [id number] Univers 09:00:00 09:00:00 JOSE ALFREDO [id number] [facility] 2022-04-132022-04-13 Outpatient R EDGAR [facility] [id number] Univers 10:30:00 10:30:00 SENDIL [id number] ity [facility] 2022-04-13 2022-04-13 Outpatient R EDGAR [facility] [id number] Univers 10:30:00 10:30:00 SENDIL ity [facility] 2022-03-27 2022-03-27 Outpatient R KYRIE [facility] [id number]-20 Univers 08:30:00 08:30:00 [facility] [id number] ity [facility] 2022-03-27 2022-03-27 Outpatient R KYRIE [facility] [id number] Univers 08:30:00 08:30:00 [facility] 2022-03-25 2022-03-25 Outpatient R [facility] [id number] Univers 11:30:00 11:30:00 [id number] ity [facility] 2022-03-20 2022-03-20 Outpatient R KYRIE [facility] [id number] N-20 Univers 08:30:00 08:30:00 [facility] [id number] ity [facility] 2022-03-20 2022-03-20 [facility] [id number] Univers 00:00:00 00:00:00 [facility] ity [facility] 2022-03-19 2022-03-19 Transition MIRIAM Lucas 1.2.840.114 [id number] Univers 00:00:00 00:00:00 of Care Mirela L KNAPP 350.1.13.10 [place] [id number] [address] 2022-03-18 2022-03-18 Outpatient R [facility] [id number] -[id number] Univers 07:30:00 07:30:00 [id number] ity [facility] 2022-03-18 2022-03-18 Telephone REI Khoury 1.2.840.114 [id number] Univers 00:00:00 00:00:00 Enrike Y HEALTH 350.1.13.10 i ty [place] [id number] [facility] [address] 2022-03-12 2022-03-12 Outpatient R KYRIE [facility] [id number]-20 Univers 00:00:00 00:00:00 LIVIA [id number] ity of [facility] 2022-03-12 2022-03-12 Transition Sam NIKOKari 1.2.840.114 [id number] Univers 00:00:00 00:00:00 of Care Yulissa HARRELLY 350.1.13.10 [place] [id number] [facility] [address] 2022-03-11 2022-03-11 Emergency X CARLEE [facility] ERT [id number] Univers 19:28:00 23:44:00 GIOVANNA ity [facility] 2022-03-11 2022-03-11 [facility] 1.2.197.303 [id number] Univers 19:28:00 23:44:00 Giovanna S AL 350.1.13.10 i ty [place] [id number] [facility] 084 Branch 2022-02-24 2022-03-11 Inpatient R [facility] [id number] Univers 12:47:00 19:17:00 ZORAIDA de souza [facility] 2022-02-24 2022-03-11 BEVERLY Rodriguez 1.2.840.114 [id number] Univers 12:47:00 19:17:00 Encounter Zoraida VEGA 350.1.13.10 ity of [facility] 4.2.7.2.686 Thien as [id number] [facility] 0[address] 2022-03-09 2022-03-09 Outpatient R [facility] [id number] -[id number] Univers 13:00:00 13:00:00 [id number] ity [facility] 2022-02-26 2022-02-26 Surgery BEVERLY Khoury 1.2.840.114 [id number] Univers 07:00:00 10:10:00 Enrike VEGA 350.1.13.10 it y of HOSPITAL 4.2.7.2.686 [place] [id number] [facility] [address] 2022-02-24 2022-02-24 Surgery BEVERLY Galarza 1.2.840.114 [id number] Univers 13:06:00 15:55:00 Zoraida VEGA 350.1.13.10 ity of [facility] 4.2.7.2.686 [place]ien as [id number] [facility] [address] 2022-02-21 2022-02-21 Emergency X MICHELL TAYLOR, [facility] ERT [id number] Univers 17:09:00 21:19:00 ZORAIDA karina [facility] 2022-02-21 2022-02-21 Emergency MartinezJoshua palacio TRAUMA 1.2.840.1 14 [id number] Univers 17:09:00 21:19:00 Zoraida Galarza [place] 350.1.13.10 [place] [id number] [facility] 014 Branch 2022-02-10 2022-02-10 Telephone [facility] 1.2.000.888 [id number] Univers 00:00:00 00:00:00 Miroslava MELENDEZ 350.1.13.10 it[place] of [place] [id number] [facility] 059 [facility] 2022-02-09 2022-02-09 Office Parker, [facility] 1.2.840.114 [id number] Univers 10:00:00 10:30:00 Visit Jose Alfredo R HEALTH 350.1.13.10 it[place] [id number] [facility] [address] 2022-02-09 2022-02-09 Outpatient Trang NELSON [facility] [id number] Univers 08:55:29 08:55:00 MICHELLE de souza [facility] 2021-08-13 2021-08-13 Inpatient NANCIE Eid [facility] [id number] [facility] 05:29:00 05:29:00 Eber bledsoe [facility] 2021-02-04 2021-02-04 Outpatient FANG, MHSE PUL 7500 MH 18:19:00 23:59:00 [facility] 2020-12-10 2020-12-11 Observatio Count includes the [facility] [id number] [facility] 10:53:55 20:10:00 n r [place] 09 l [facility] 2020-12-11 2020-12-11 Outpatient MICHAEL ZABALABL MED 7509 MHBL 09:58:00 15:10:00 LAURA 2020-08-19 2020-08-26 Inpatient Bhuriya, [facility] CATH [id number] [facility] 13:00:00 07:55:28 Eber 32 [facility] 2020-05-28 2020-05-28 Orders Doctor LEDEZMA 1.2.840.114 [id number] 00:00:00 00:00:00 Only Unassigned, SILVIA 350.1.13.10 [place] [address].2.7.2.686 [id number] 009 2020-05-03 2020-05-03 Orders Doctor LEDEZMA 1.2.840.114 [id number] 00:00:00 00:00:00 Only Unassigned, SILVIA 350.1.13.10 [place] [address].2.7.2.686 [id number] 009 2020-04-30 2020-04-30 Abstract [facility] 12.424.382 [id number] 00:00:00 00:00:00 Yadiel A MULTISPEC 350.1.13.10 IALTY 4.2.7.2.686 [place] [id number] [facility] 2020-01-31 2020-01-31 Abstract [facility] 1.2.434.234 [id number] 00:00:00 00:00:00 Cotto A MULTISPEC 350.1.13.10 IALTY 4.2.7.2.686 [place] [id number] [facility] 2020-01-31 2020-01-31 Orders Doctor DARIEN Perry2.840.114 [id number] 00:00:00 00:00:00 Only Unassigned, SILVIA 350.1.13.10 [place] [facility] 4.2.7.2.686 [id number] 009 2020-01-23 2020-01-23 Hospital DARIEN Gutierrez 1.2.840.114 [id number] 07:32:22 23:59:00 Encounter Tabby VEGA 350.1.13.[address]686 [id number] 040 2020-01-23 2020-01-23 Orders Doctor DARIEN 1.2.840.114 [id number] 00:00:00 00:00:00 Only Unassigned, SILVIA 350.1.13.10 [place] [facility] 4.2.7.2.686 [id number] 009 2020-01-19 2020-01-19 Abstract [facility] 1.2.813.610 [id number] 00:00:00 00:00:00 Yadiel Blum MULTISPEC 350.1.13.10 IAL[place] 4.2.7.2.686 [place] [id number] [facility] 2019-12-27 2020-01-11 [facility] 1.2.840.114 [id number] 07:58:11 12:47:54 ne Visit Kidney MULTISPEC 350.1.13.10 IAL[place] 4.2.7.2.686 [place] [id number] [facility] 2020-01-11 2020-01-11 Telephone [facility] 1.2.840.114 [id number] 00:00:00 00:00:00 Yadiel A MULTISPEC 350.1.13.10 IAL[place] 4.2.7.2.686 [place] [id number] [facility] 2018-01-10 2018-01-11 Bedded Count includes the [facility] [id number] Memoria 11:36:00 02:00:00 Outpatient trang Hernandez 08 [facility] 2017-11-17 2017-11-17 Bedded Count includes the [facility] [id number] Memoria 14:26:00 23:15:00 Outpatient trang Hernandez 07 [facility] 2017-11-17 2017-11-17 Bedded Count includes the [facility] [id number] Memoria 17:00:00 17:00:00 Outpatient r David 06 l [facility] 2017-10-20 2017-10-21 Observatio nullFlavo [facility] [id number] Memoria 00:16:00 02:34:00 n r Savanna 05 l [facility] 2017-08-10 2017-08-11 Emergency nullFlavo [facility] 97351 73920 Memoria 22:01:00 09:44:00 r Savanna 04 [facility] 2017-07-21 2017-07-21 Appointmen ALF, CLARITZA Vidal [id number] [place] 11:00:00 11:00:00 t; MAHIN [facility] SHEILA, M.D. Specialty ans MRenny 2017-06-30 2017-06-30 Appointmen CLARITZA MILNER [id number] [place] 11:15:00 11:15:00 t; [facility]HIN [facility] SHEILA, M.D. Specialty ans MRenny 2017-06-24 2017-06-25 Inpatient nullFlavo [facility] [id number] Memoria 11:33:00 20:10:00 r Savanna 03 [facility] 2017-06-10 2017-06-11 Day nullFlavo [facility] [id number] Memoria 15:11:00 04:59:00 Surgery r Savanna 02 [facility] 2017-06-07 2017-06-07 Appointmen CLARITZA MILNER UTP [id number] [place] 10:45:00 10:45:00 t; MAHIN MILNER Phy sici SHEILA, M.D. ans MRenny 2017-05-13 2017-05-13 Appointmal VASCULAR, CLARITZA UTP [id number] [place] 15:00:00 15:00:00 t; YOUNG Physi ci VASCULAR, luis VIDAL 2017-05-10 2017-05-10 Appointmen ALF, CLARITZA UTP [id number] [place] 11:00:00 11:00:00 t; MAHIN MILNER Phy sici SHEILA, M.D. ans M.D. 2016-12-07 2016-12-07 Emergency nullFlavo [facility] 36405 71275 Memoria 01:58:00 05:59:00 r David 01 l [facility] 2016-11-09 2016-11-10 [facility] [id number] [facility]:13[facility]00 07:45:00 r Savanna 00 l [facility] Results Test Description Test Time Test Comments Results Result Comments Source POCT GLUCOSE (AUTOMATED) 2022-03-11 21:42:11 Test Item Value Reference Range Interpretation Comme nts POCT GLU (test code = 5171032181) 89 mg/dL 70-110 Lab Interpretation (test code = 62032-4) Normal [facility] GLUCOSE (AUTOMATED)2022-03-11 17:06:48 Test Item Value Reference Range Interpretation Comments POCT GLU (test code = 97 mg/dL 70-110 Notifi ed Provider [id number]) Lab Interpretation (test Normal code = 11250-1) [facility] GLUCOSE (AUTOMATED)2022-03-11 13:16:48 Test Item Value Reference Range Interpretation Comments POCT GLU (test code = 88 mg/dL 70-110 Notifi ed Provider [id number]) Lab Interpretation (test Normal code = 46125-5) [facility] METABOLIC PANEL (NA, K, CL, CO2, GLUCOSE, BUN, CREATININE, CA)2022-03-11 12:31:23 Test Item Value Reference Range Interpretation Comments NA (test code = 134 mmol/L 135-145 L [id number]) K (test code = 4.6 mmol/L 3.5-5 0908807541) CL (test code = 102 mmol/L 98-108 7227520089) CO2 TOTAL (test code = 23 mmol/L 23-31 5803829935) AGAP (test code = 2-16 3900915894) BUN (test code = 46 mg/dL 7-23 H 5461160806) GLUCOSE (test code = 119 mg/dL 70-110 H 8320932090) CREATININE (test code = 5.68 mg/dL 0.6-1.25 H 7057320788) CALCIUM (test code = 8.3 mg/dL 8.6-10.6 L 9652790575) eGFR (test code = mL/min/1.73m2 6490731778) BRIAN (test code = BRIAN) Association of Glomerular Filtration Rate (GFR) and Staging of Kidney Disease* + --+ --+ ------+| GFR (mL/min/1.73 m2) ?| With Kidney Damage ?| ?Without Kidney Damage+ --------+ --------+ +| ?>90 ?| ?Stage one ?| ? Normal ?+ ---+ ---+ -------+| ?60-89 ?| ?Stage two ?| ? Decreased GFR ? + --+ --+ ------+| ?30-59 ?| ?Stage three ?| ? Stage three ? + --+ --+ ------+| ?15-29 ?| ?Stage four ? | ? Stage four ?+ ---+ ---+ -------+| ?<15 (or dialysis) ? ?| ?Stage five ? | ? Stage five ?+ ---+ ---+ -------+ *Each stage assumes the associated GFR level has been in effect for at least three months. ?Stages 1 to 5, with or without kidney disease, indicate chronic kidney disease. Notes: Determination of stages one and two (with eGFR >59mL/min/1.73 m2) requires estimation of kidney damage for at least three months as defined by structural or functional abnormalities of the kidney, manifested by either:Pathological abnormalities or Markers of kidney damage (including abnormalities in the composition of the blood or urine or abnormalities in imaging tests). Lab Interpretation Abnormal (test code = 21920-5) [facility] [id number] 10:35:49 Test Item Value Reference Range Interpretation Comments PROTIME PATIENT (test See_Comment H [Auto mated message] code = 5964-2) The system [employer] generated this result transmitted ref erence range: 10.1 - 1 2.6 Seconds. The reference range was not used to int erpret this result as normal/abnormal . INR (test code = 6301-6) Nor mal INR <1.1; Warfarin Therap eutic range 2.0 to 3. 0 or 2.5 to 3.5, dep ending upon the indica tions. Lab Interpretation (test Abnormal code = 85758-4) [facility] WITH [id number] 10:35:49 Test Item Value Reference Range Interpretation Comments WBC (test code = See_Comment [Automated 6690-2) message] The sy stem which generated this result transmitted reference range : 4.20 - 10.70 10*3/?L. The reference range was not used to interpret this result as normal/abnormal . RBC (test code = See_Comment L [Automated 789-8) message] The sy stem which generated this result transmitted reference range : 4.26 - 5.52 10*6/?L. The reference range was not used to interpret this result as normal/abnormal . HGB (test code = 8.7 g/dL 12.2-16.4 L 718-7) HCT (test code = 28.3 % 38.4-49.3 L 4544-3) MCV (test code = 105.6 fL 81.7-95.6 H 787-2) MCH (test code = 32.5 pg 26.1-32.7 785-6) MCHC (test code = 30.7 g/dL 31.2-35 L 786-4) RDW-SD (test code = 59.7 fL 38.5-51.6 H 04075-6) RDW-CV (test code = 15.9 % 12.1-15.4 H 788-0) PLT (test code = See_Comment [Automated 777-3) message] The sy stem which generated this result transmitted reference range : 150 - 328 10*3/ ?L. The reference r dawood was not used to interpret this result as normal/abnormal . MPV (test code = 10.2 fL 9.8-13 44789-3) NRBC/100 WBC (test See_Comment [Automat ed code = 8136104090) message] The system which generated this result transmitted reference range : 0.0 - 10.0 /100 WBCs. The refer ence range was not u sed to interpret th is result as normal/abnormal . NRBC x10^3 (test code See_Comment [Auto mated = 7606118834) message] The s ystem which generated this result transmitted reference range : 10*3/?L. The reference range was not used to interpret this result as normal/abnormal . GRAN MAT (NEUT) % 78.8 % (test code = 770-8) IMM GRAN % (test code 0.90 % = 2608215159) LYMPH % (test code = 8.8 % 736-9) MONO % (test code = 7.3 % 5905-5) EOS % (test code = 3.2 % 713-8) BASO % (test code = 1.0 % 706-2) GRAN MAT x10^3(ANC) 6.14 10*3/uL 1.99-6.95 (test code = 8418945562) IMM GRAN x10^3 (test 0.07 10*3/uL 0-0.06 H code = 4176660315) LYMPH x10^3 (test code 0.69 10*3/uL 1.09-3.23 L = 731-0) MONO x10^3 (test code 0.57 10*3/uL 0.36-1.02 = 742-7) EOS x10^3 (test code = 0.25 10*3/uL 0.06-0.53 711-2) BASO x10^3 (test code 0.08 10*3/uL 0.01-0.09 = 704-7) Lab Interpretation Abnormal (test code = 02388-4) [facility] GLUCOSE (AUTOMATED)2022-03-11 01:41:49 Test Item Value Reference Range Interpretation Comments POCT GLU (test code = 7999808708) 139 mg/dL 70-110 H Lab Interpretation (test code = Abnormal 95930-9) [facility] GLUCOSE (AUTOMATED)2022-03-10 21:50:03 Test Item Value Reference Range Interpretation Comments POCT GLU (test code = 177 mg/dL 70-110 H Notifi ed Provider [id number]) Lab Interpretation (test Abnormal code = 09762-5) [facility] GLUCOSE (AUTOMATED)2022-03-10 19:09:36 Test Item Value Reference Range Interpretation Comments POCT GLU (test code = 125 mg/dL 70-110 H Notifi ed Provider [id number]) Lab Interpretation (test Abnormal code = 75742-4) [facility] DIALYSIS [id number] 18:40:01 Test Item Value Reference Range Interpretation Comments PostBUN (test code = 1108164010) 26 mg/dl 7-23 H Lab Interpretation (test code = Abnormal 24317-4) [facility] GLUCOSE (AUTOMATED)2022-03-10 18:19:15 Test Item Value Reference Range Interpretation Comments POCT GLU (test code = 0802773455) 90 mg/dL 70-110 Lab Interpretation (test code = Normal 84951-9) [facility] [id number] 14:48:46 Test Item Value Reference Range Interpretation Comments PostBUN (test code = 1109678644) 79 mg/dl 7-23 H Lab Interpretation (test code = Abnormal 24835-2) [facility] [id number] 14:26:55 Test Item Value Reference Range Interpretation Comments BUN (test code = 9862066918) 79 mg/dL 7-23 H Lab Interpretation (test code = Abnormal 54374-5) [facility] GLUCOSE (AUTOMATED)2022-03-10 14:26:10 Test Item Value Reference Range Interpretation Comments POCT GLU (test code = 2846159526) 99 mg/dL 70-110 Lab Interpretation (test code = Normal 10747-6) [facility] GLUCOSE (AUTOMATED)2022-03-10 12:34:20 Test Item Value Reference Range Interpretation Comments POCT GLU (test code = 85 mg/dL 70-110 Notifi ed Provider [id number]) Lab Interpretation (test Normal code = 58294-6) [facility] METABOLIC PANEL (NA, K, CL, CO2, GLUCOSE, BUN, CREATININE, CA)2022-03-10 09:59:47 Test Item Value Reference Range Interpretation Comments NA (test code = 133 mmol/L 135-145 L 6327177879) K (test code = 4.7 mmol/L 3.5-5 Slight 8015712047) hemolysis CL (test code = 101 mmol/L 98-108 7758070763) CO2 TOTAL (test code 18 mmol/L 23-31 L = 0299816429) AGAP (test code = 2-16 1739477572) BUN (test code = 81 mg/dL 7-23 H Slight 6535808112) hemolysis GLUCOSE (test code = 56 mg/dL 70-110 L 6324396944) CREATININE (test code 8.61 mg/dL 0.6-1.25 H = 3294443763) CALCIUM (test code = 8.5 mg/dL 8.6-10.6 L 3147207346) eGFR (test code = mL/min/1.73m2 1542433424) BRIAN (test code = BRIAN) Association of Glomerular Filtration Rate (GFR) and Staging of Kidney Disease* + -----+ --------+ +| GFR (mL/min/1.73 m2) ?| With Kidney Damage ?| ?Without Kidney Damage+ +------- +---- --+| ?>90 ?| ?Stage one ?| ? Normal ?+ ------+ ---------+--------- +| ?60-89 ?| ?Stage two ?| ? Decreased GFR ? + -----+ --------+ +| ?30-59 ?| ?Stage three ?| ? Stage three ? + -----+ --------+ +| ?15-29 ?| ?Stage four ? | ? Stage four ?+ ------+ ---------+--------- +| ?<15 (or dialysis) ? ?| ?Stage five ? | ? Stage five ?+ ------+ ---------+--------- + *Each stage assumes the associated GFR level has been in effect for at least three months. ?Stages 1 to 5, with or without kidney disease, indicate chronic kidney disease. Notes: Determination of stages one and two (with eGFR >59mL/min/1.73 m2) requires estimation of kidney damage for at least three months as defined by structural or functional abnormalities of the kidney, manifested by either:Pathological abnormalities or Markers of kidney damage (including abnormalities in the composition of the blood or urine or abnormalities in imaging tests). Lab Interpretation Abnormal (test code = 38596-7) [facility] 09:59:47 Test Item Value Reference Range Interpretation Comments MAGNESIUM (test code = 0098245963) 2.6 mg/dL 1.7-2.4 H Lab Interpretation (test code = Abnormal 64781-8) [facility] / [id number] 09:36:26 Test Item Value Reference Range Interpretation Comments PROTIME PATIENT (test See_Comment H [Auto mated message] code = 5964-2) The system [employer] generated this result transmitted ref erence range: 10.1 - 1 2.6 Seconds. The reference range was not used to int erpret this result as normal/abnormal . INR (test code = 6301-6) Nor mal INR <1.1; Warfarin Therap eutic range 2.0 to 3. 0 or 2.5 to 3.5, dep ending upon the indica tions. Lab Interpretation (test Abnormal code = 73037-5) [facility] WITH [id number] 09:28:48 Test Item Value Reference Range Interpretation Comments WBC (test code = See_Comment [Automated 6690-2) message] The sy stem which generated this result transmitted reference range : 4.20 - 10.70 10*3/?L. The reference range was not used to interpret this result as normal/abnormal . RBC (test code = See_Comment L [Automated 789-8) message] The sy stem which generated this result transmitted reference range : 4.26 - 5.52 10*6/?L. The reference range was not used to interpret this result as normal/abnormal . HGB (test code = 9.4 g/dL 12.2-16.4 L 718-7) HCT (test code = 30.0 % 38.4-49.3 L 4544-3) MCV (test code = 106.0 fL 81.7-95.6 H 787-2) MCH (test code = 33.2 pg 26.1-32.7 H 785-6) MCHC (test code = 31.3 g/dL 31.2-35 786-4) RDW-SD (test code = 59.8 fL 38.5-51.6 H 44377-2) RDW-CV (test code = 15.9 % 12.1-15.4 H 788-0) PLT (test code = See_Comment [Automated 777-3) message] The sy stem which generated this result transmitted reference range : 150 - 328 10*3/ ?L. The reference r dawood was not used to interpret this result as normal/abnormal . MPV (test code = 10.4 fL 9.8-13 95508-1) NRBC/100 WBC (test See_Comment [Automat ed code = 7130208889) message] The system which generated this result transmitted reference range : 0.0 - 10.0 /100 WBCs. The refer ence range was not u sed to interpret th is result as normal/abnormal . NRBC x10^3 (test code See_Comment [Auto mated = 5443736832) message] The s ystem which generated this result transmitted reference range : 10*3/?L. The reference range was not used to interpret this result as normal/abnormal . GRAN MAT (NEUT) % 80.6 % (test code = 770-8) IMM GRAN % (test code 0.90 % = 6827486860) LYMPH % (test code = 7.7 % 736-9) MONO % (test code = 6.9 % 5905-5) EOS % (test code = 3.2 % 713-8) BASO % (test code = 0.7 % 706-2) GRAN MAT x10^3(ANC) 6.99 10*3/uL 1.99-6.95 H (test code = 8210372148) IMM GRAN x10^3 (test 0.08 10*3/uL 0-0.06 H code = 5022234534) LYMPH x10^3 (test code 0.67 10*3/uL 1.09-3.23 L = 731-0) MONO x10^3 (test code 0.60 10*3/uL 0.36-1.02 = 742-7) EOS x10^3 (test code = 0.28 10*3/uL 0.06-0.53 711-2) BASO x10^3 (test code 0.06 10*3/uL 0.01-0.09 = 704-7) Lab Interpretation Abnormal (test code = 33024-3) [facility] GLUCOSE (AUTOMATED)2022-03-10 01:36:22 Test Item Value Reference Range Interpretation Comments POCT GLU (test code = 9960222441) 123 mg/dL 70-110 H Lab Interpretation (test code = Abnormal 24690-9) [facility] GLUCOSE (AUTOMATED)2022-03-09 21:51:40 Test Item Value Reference Range Interpretation Comments POCT GLU (test code = 146 mg/dL 70-110 H Notifi ed Provider [id number]) Lab Interpretation (test Abnormal code = 64910-6) [facility] GLUCOSE (AUTOMATED)2022-03-09 17:30:03 Test Item Value Reference Range Interpretation Comments POCT GLU (test code = 6832014659) 121 mg/dL 70-110 H Lab Interpretation (test code = Abnormal 73495-2) [facility] GLUCOSE (AUTOMATED)2022-03-09 13:55:54 Test Item Value Reference Range Interpretation Comments POCT GLU (test code = 83 mg/dL 70-110 Notifi ed Provider [id number]) Lab Interpretation (test Normal code = 68567-8) [facility] / [id number] 10:25:49 Test Item Value Reference Range Interpretation Comments PROTIME PATIENT (test See_Comment H [Auto mated message] code = 5964-2) The system [employer] generated this result transmitted ref erence range: 10.1 - 1 2.6 Seconds. The reference range was not used to int erpret this result as normal/abnormal . INR (test code = 6301-6) Nor mal INR <1.1; Warfarin Therap eutic range 2.0 to 3. 0 or 2.5 to 3.5, dep ending upon the indica tions. Lab Interpretation (test Abnormal code = 79871-9) [facility] GLUCOSE (AUTOMATED)2022-03-09 02:34:01 Test Item Value Reference Range Interpretation Comments POCT GLU (test code = 3260208035) 127 mg/dL 70-110 H Lab Interpretation (test code = Abnormal 45453-3) [facility] GLUCOSE (AUTOMATED)2022-03-08 22:32:24 Test Item Value Reference Range Interpretation Comments POCT GLU (test code = 7653220884) 88 mg/dL 70-110 Lab Interpretation (test code = Normal 54817-8) [facility] GLUCOSE (AUTOMATED)2022-03-08 18:23:14 Test Item Value Reference Range Interpretation Comments POCT GLU (test code = 6738453659) 140 mg/dL 70-110 H Lab Interpretation (test code = Abnormal 88297-0) [facility] GLUCOSE (AUTOMATED)2022-03-08 13:54:27 Test Item Value Reference Range Interpretation Comments POCT GLU (test code = 1526880077) 163 mg/dL 70-110 H Lab Interpretation (test code = Abnormal 59994-8) [facility]NA, K, CL, CO2, GLUCOSE, BUN, CREATININE, CA)2022-03-08 12:08:29 Test Item Value Reference Range Interpretation Comments NA (test code = 134 mmol/L 135-145 L 9339432958) K (test code = 4.0 mmol/L 3.5-5 7718020026) CL (test code = 99 mmol/L 98-108 4579035005) CO2 TOTAL (test code = 27 mmol/L 23-31 5094600158) AGAP (test code = 2-16 7035189376) BUN (test code = 44 mg/dL 7-23 H 9162791486) GLUCOSE (test code = 92 mg/dL 70-110 9112224136) CREATININE (test code = 5.46 mg/dL 0.6-1.25 H 1218647548) CALCIUM (test code = 8.9 mg/dL 8.6-10.6 6297532959) eGFR (test code = mL/min/1.73m2 6840962867) BRIAN (test code = BRIAN) Association of Glomerular Filtration Rate (GFR) and Staging of Kidney Disease* + --+ --+ ------+| GFR (mL/min/1.73 m2) ?| With Kidney Damage ?| ?Without Kidney Damage+ --------+ --------+ +| ?>90 ?| ?Stage one ?| ? Normal ?+ ---+ ---+ -------+| ?60-89 ?| ?Stage two ?| ? Decreased GFR ? + --+ --+ ------+| ?30-59 ?| ?Stage three ?| ? Stage three ? + --+ --+ ------+| ?15-29 ?| ?Stage four ? | ? Stage four ?+ ---+ ---+ -------+| ?<15 (or dialysis) ? ?| ?Stage five ? | ? Stage five ?+ ---+ ---+ -------+ *Each stage assumes the associated GFR level has been in effect for at least three months. ?Stages 1 to 5, with or without kidney disease, indicate chronic kidney disease. Notes: Determination of stages one and two (with eGFR >59mL/min/1.73 m2) requires estimation of kidney damage for at least three months as defined by structural or functional abnormalities of the kidney, manifested by either:Pathological abnormalities or Markers of kidney damage (including abnormalities in the composition of the blood or urine or abnormalities in imaging tests). Lab Interpretation Abnormal (test code = 47224-2) [facility] 12:08:29 Test Item Value Reference Range Interpretation Comments MAGNESIUM (test code = 3272022956) 2.3 mg/dL 1.7-2.4 Lab Interpretation (test code = Normal 74694-1) [facility] / [id number] 11:00:45 Test Item Value Reference Range Interpretation Comments PROTIME PATIENT (test See_Comment H [Auto mated message] code = 5964-2) The system [employer] ich generated this result transmitted ref erence range: 10.1 - 1 2.6 Seconds. The reference range was not used to int erpret this result as normal/abnormal . INR (test code = 6301-6) Nor mal INR <1.1; Warfarin Therap eutic range 2.0 to 3. 0 or 2.5 to 3.5, dep ending upon the indica tions. Lab Interpretation (test Abnormal code = 93290-9) [facility] [id number] 10:53:07 Test Item Value Reference Range Interpretation Comments WBC (test code = See_Comment [Automated 6690-2) message] The sy stem which generated this result transmitted reference range : 4.20 - 10.70 10*3/?L. The reference range was not used to interpret this result as normal/abnormal . RBC (test code = See_Comment L [Automated 229-8) message] The sy stem which generated this result transmitted reference range : 4.26 - 5.52 10*6/?L. The reference range was not used to interpret this result as normal/abnormal . HGB (test code = 8.6 g/dL 12.2-16.4 L 718-7) HCT (test code = 27.4 % 38.4-49.3 L 4544-3) MCV (test code = 106.2 fL 81.7-95.6 H 787-2) MCH (test code = 33.3 pg 26.1-32.7 H 785-6) MCHC (test code = 31.4 g/dL 31.2-35 786-4) RDW-SD (test code = 58.8 fL 38.5-51.6 H 83294-9) RDW-CV (test code = 16.0 % 12.1-15.4 H 788-0) PLT (test code = See_Comment [Automated 777-3) message] The sy stem which generated this result transmitted reference range : 150 - 328 10*3/ ?L. The reference r dawood was not used to interpret this result as normal/abnormal . MPV (test code = 10.6 fL 9.8-13 59125-4) NRBC/100 WBC (test See_Comment [Automat ed code = 8742655457) message] The system which generated this result transmitted reference range : 0.0 - 10.0 /100 WBCs. The refer ence range was not u sed to interpret th is result as normal/abnormal . NRBC x10^3 (test code See_Comment [Auto mated = 8745425530) message] The s ystem which generated this result transmitted reference range : 10*3/?L. The reference range was not used to interpret this result as normal/abnormal . GRAN MAT (NEUT) % 79.0 % (test code = 770-8) IMM GRAN % (test code 1.60 % = 0685102423) LYMPH % (test code = 6.7 % 736-9) MONO % (test code = 10.0 % 5905-5) EOS % (test code = 2.2 % 713-8) BASO % (test code = 0.5 % 706-2) GRAN MAT x10^3(ANC) 7.43 10*3/uL 1.99-6.95 H (test code = 3522757599) IMM GRAN x10^3 (test 0.15 10*3/uL 0-0.06 H code = 0498509544) LYMPH x10^3 (test code 0.63 10*3/uL 1.09-3.23 L = 731-0) MONO x10^3 (test code 0.94 10*3/uL 0.36-1.02 = 742-7) EOS x10^3 (test code = 0.21 10*3/uL 0.06-0.53 711-2) BASO x10^3 (test code 0.05 10*3/uL 0.01-0.09 = 704-7) Lab Interpretation Abnormal (test code = 66027-8) [facility] GLUCOSE (AUTOMATED)2022-03-08 09:04:23 Test Item Value Reference Range Interpretation Comments POCT GLU (test code = 0432388226) 100 mg/dL 70-110 Lab Interpretation (test code = Normal 31788-9) [facility] GLUCOSE (AUTOMATED)2022-03-08 04:50:25 Test Item Value Reference Range Interpretation Comments POCT GLU (test code = 8627698752) 113 mg/dL 70-110 H Lab Interpretation (test code = Abnormal 37553-7) [facility] GLUCOSE (AUTOMATED)2022-03-07 22:03:30 Test Item Value Reference Range Interpretation Comments POCT GLU (test code = 9056124037) 179 mg/dL 70-110 H Lab Interpretation (test code = Abnormal 86094-9) [facility] GLUCOSE (AUTOMATED)2022-03-07 14:20:02 Test Item Value Reference Range Interpretation Comments POCT GLU (test code = 8926928705) 91 mg/dL 70-110 Lab Interpretation (test code = Normal 20722-7) [facility] METABOLIC PANEL (NA, K, CL, CO2, GLUCOSE, BUN, CREATININE, CA)2022-03-07 11:54:55 Test Item Value Reference Range Interpretation Comments NA (test code = 133 mmol/L 135-145 L 9869354711) K (test code = 4.6 mmol/L 3.5-5 7166526905) CL (test code = 98 mmol/L 98-108 9190716383) CO2 TOTAL (test code = 23 mmol/L 23-31 9640795542) AGAP (test code = 2-16 8391810643) BUN (test code = 69 mg/dL 7-23 H 6935465398) GLUCOSE (test code = 68 mg/dL 70-110 L 2187648780) CREATININE (test code = 7.60 mg/dL 0.6-1.25 H 0937513047) CALCIUM (test code = 8.8 mg/dL 8.6-10.6 4552404636) eGFR (test code = mL/min/1.73m2 7561526759) BRIAN (test code = BRIAN) Association of Glomerular Filtration Rate (GFR) and Staging of Kidney Disease* + --+ --+ ------+| GFR (mL/min/1.73 m2) ?| With Kidney Damage ?| ?Without Kidney Damage+ --------+ --------+ +| ?>90 ?| ?Stage one ?| ? Normal ?+ ---+ ---+ -------+| ?60-89 ?| ?Stage two ?| ? Decreased GFR ? + --+ --+ ------+| ?30-59 ?| ?Stage three ?| ? Stage three ? + --+ --+ ------+| ?15-29 ?| ?Stage four ? | ? Stage four ?+ ---+ ---+ -------+| ?<15 (or dialysis) ? ?| ?Stage five ? | ? Stage five ?+ ---+ ---+ -------+ *Each stage assumes the associated GFR level has been in effect for at least three months. ?Stages 1 to 5, with or without kidney disease, indicate chronic kidney disease. Notes: Determination of stages one and two (with eGFR >59mL/min/1.73 m2) requires estimation of kidney damage for at least three months as defined by structural or functional abnormalities of the kidney, manifested by either:Pathological abnormalities or Markers of kidney damage (including abnormalities in the composition of the blood or urine or abnormalities in imaging tests). Lab Interpretation Abnormal (test code = 22485-8) [facility] 11:54:55 Test Item Value Reference Range Interpretation Comments MAGNESIUM (test code = 6053030964) 2.5 mg/dL 1.7-2.4 H Lab Interpretation (test code = Abnormal 99482-4) [facility] / [id number] 11:26:50 Test Item Value Reference Range Interpretation Comments PROTIME PATIENT (test See_Comment H [Auto mated message] code = 5964-2) The system [employer] generated this result transmitted ref erence range: 10.1 - 1 2.6 Seconds. The reference range was not used to int erpret this result as normal/abnormal . INR (test code = 6301-6) Nor mal INR <1.1; Warfarin Therap eutic range 2.0 to 3. 0 or 2.5 to 3.5, dep ending upon the indica tions. Lab Interpretation (test Abnormal code = 60031-1) [facility] WITH [id number] 11:20:52 Test Item Value Reference Range Interpretation Comments WBC (test code = See_Comment [Automated 6690-2) message] The sy stem which generated this result transmitted reference range : 4.20 - 10.70 10*3/?L. The reference range was not used to interpret this result as normal/abnormal . RBC (test code = See_Comment L [Automated 789-8) message] The sy stem which generated this result transmitted reference range : 4.26 - 5.52 10*6/?L. The reference range was not used to interpret this result as normal/abnormal . HGB (test code = 7.9 g/dL 12.2-16.4 L 718-7) HCT (test code = 25.3 % 38.4-49.3 L 4544-3) MCV (test code = 105.4 fL 81.7-95.6 H 787-2) MCH (test code = 32.9 pg 26.1-32.7 H 785-6) MCHC (test code = 31.2 g/dL 31.2-35 786-4) RDW-SD (test code = 57.2 fL 38.5-51.6 H 04589-7) RDW-CV (test code = 15.5 % 12.1-15.4 H 788-0) PLT (test code = See_Comment [Automated 777-3) message] The sy stem which generated this result transmitted reference range : 150 - 328 10*3/ ?L. The reference r dawood was not used to interpret this result as normal/abnormal . MPV (test code = 10.8 fL 9.8-13 76752-9) NRBC/100 WBC (test See_Comment [Automat ed code = 6552067047) message] The system which generated this result transmitted reference range : 0.0 - 10.0 /100 WBCs. The refer ence range was not u sed to interpret th is result as normal/abnormal . NRBC x10^3 (test code See_Comment [Auto mated = 0257985239) message] The s ystem which generated this result transmitted reference range : 10*3/?L. The reference range was not used to interpret this result as normal/abnormal . GRAN MAT (NEUT) % 78.2 % (test code = 770-8) IMM GRAN % (test code 1.40 % = 8533543641) LYMPH % (test code = 6.2 % 736-9) MONO % (test code = 11.3 % 5905-5) EOS % (test code = 2.3 % 713-8) BASO % (test code = 0.6 % 706-2) GRAN MAT x10^3(ANC) 8.26 10*3/uL 1.99-6.95 H (test code = 3853491687) IMM GRAN x10^3 (test 0.15 10*3/uL 0-0.06 H code = 2443819186) LYMPH x10^3 (test code 0.65 10*3/uL 1.09-3.23 L = 731-0) MONO x10^3 (test code 1.19 10*3/uL 0.36-1.02 H = 742-7) EOS x10^3 (test code = 0.24 10*3/uL 0.06-0.53 711-2) BASO x10^3 (test code 0.06 10*3/uL 0.01-0.09 = 704-7) Lab Interpretation Abnormal (test code = 87403-1) [facility] GLUCOSE (AUTOMATED)2022-03-07 01:38:21 Test Item Value Reference Range Interpretation Comments POCT GLU (test code = 7674678152) 230 mg/dL 70-110 H Lab Interpretation (test code = Abnormal 02909-2) [facility] GLUCOSE (AUTOMATED)2022-03-06 22:05:54 Test Item Value Reference Range Interpretation Comments POCT GLU (test code = 167 mg/dL 70-110 H Notifi ed Provider [id number]) Lab Interpretation (test Abnormal code = 81176-7) [facility] GLUCOSE (AUTOMATED)2022-03-06 20:37:20 Test Item Value Reference Range Interpretation Comments POCT GLU (test code = 5726629854) 141 mg/dL 70-110 H Lab Interpretation (test code = Abnormal 83667-6) [facility] GLUCOSE (AUTOMATED)2022-03-06 18:06:54 Test Item Value Reference Range Interpretation Comments POCT GLU (test code = 2952830212) 134 mg/dL 70-110 H Lab Interpretation (test code = Abnormal 37855-4) [facility] GLUCOSE (AUTOMATED)2022-03-06 16:56:08 Test Item Value Reference Range Interpretation Comments POCT GLU (test code = 6259360293) 136 mg/dL 70-110 H Lab Interpretation (test code = Abnormal 15328-9) [facility] GLUCOSE (AUTOMATED)2022-03-06 13:53:53 Test Item Value Reference Range Interpretation Comments POCT GLU (test code = 5677530568) 171 mg/dL 70-110 H Lab Interpretation (test code = Abnormal 56124-6) [facility] GLUCOSE (AUTOMATED)2022-03-06 03:24:05 Test Item Value Reference Range Interpretation Comments POCT GLU (test code = 7790137294) 183 mg/dL 70-110 H Lab Interpretation (test code = Abnormal 34103-0) [facility] GLUCOSE (AUTOMATED)2022-03-05 22:18:00 Test Item Value Reference Range Interpretation Comments POCT GLU (test code = 9185699488) 204 mg/dL 70-110 H Lab Interpretation (test code = Abnormal 64780-8) [facility] GLUCOSE (AUTOMATED)2022-03-05 19:01:51 Test Item Value Reference Range Interpretation Comments POCT GLU (test code = 6221362752) 159 mg/dL 70-110 H Lab Interpretation (test code = Abnormal 83763-1) [facility] GLUCOSE (AUTOMATED)2022-03-05 15:17:40 Test Item Value Reference Range Interpretation Comments POCT GLU (test code = 2084315328) 98 mg/dL 70-110 Lab Interpretation (test code = Normal 61202-7) [facility] 08:03:02 Test Item Value Reference Range Interpretation Comments APTT Patient (test code See_Comment H [Au tomated message] = 3173-2) The system [employer] generated this result transmitted ref erence range: 26 - 36 Seconds. The reference range was not used to int erpret this result as normal/abnormal . Lab Interpretation (test Abnormal code = 38874-0) [facility] / [id number] 08:03:02 Test Item Value Reference Range Interpretation Comments PROTIME PATIENT (test See_Comment H [Auto mated message] code = 5964-2) The system [employer] ich generated this result transmitted ref erence range: 10.1 - 1 2.6 Seconds. The reference range was not used to int erpret this result as normal/abnormal . INR (test code = 6301-6) Nor mal INR <1.1; Warfarin Therap eutic range 2.0 to 3. 0 or 2.5 to 3.5, dep ending upon the indica tions. Lab Interpretation (test Abnormal code = 06262-9) [facility] GLUCOSE (AUTOMATED)2022-03-05 01:06:25 Test Item Value Reference Range Interpretation Comments POCT GLU (test code = 5840326455) 164 mg/dL 70-110 H Lab Interpretation (test code = Abnormal 86021-7) [facility] GLUCOSE (AUTOMATED)2022-03-04 23:42:57 Test Item Value Reference Range Interpretation Comments POCT GLU (test code = 5283489570) 171 mg/dL 70-110 H Lab Interpretation (test code = Abnormal 24287-1) [facility] [id number] 19:13:13 Test Item Value Reference Range Interpretation Comments Case Report (test code Surgical Pathology ? ? = [id number]) ?Case: [id number] ? Authorizing Provider: ?Enrike Khoury MD ?Collected: ? 02/26/2022913 ?Ordering Location: ? ? [facility] OR ? Received: ?02/26/2022 1106 ? Department ? Pathologist: ? Shaka, Cyndi, PHD ?Specimen: ? ?LEG, LEFT, ABOVE KNEE ? Final Diagnosis (test d7kmfXOuWNZre2nuODHqyCC code = 2607517221) uZzEwMzNcZnRuYmpcdWMxIH tccnRmMVxlcGljMTAxMDNcY G0gdGjuiSs7jZrzVPUmqoZ5 qMLbVWqdo0tdEGW2m6kkped aXATyVJotZk8ggBGmaPrjIp QcLRAiICy6sZ09CNPbwF1qz ZBcWXr5QPPxsRPmbrIgWdKr URFvyPTiwMU6RFMeQZ1onwf qGFrpPXqsHMLtqhK9RVKxlO KpW5NgBAVeEF3yfamoIVL7R RpnWJClFTJ3WsWkTYVtf1Ui npc2InZdlAAeXHtqnBJowcd qzxMnRAHjwwDMVjICS01CTZ WYYBAOB8PWYYNYM6KFXJbuE ZBCGUQVNTQOSFGDDq0GPMVK RoBWCROVQQRPFZNXF487XUz oBMHiPKTwQZ0cMTOFZUZQUA XdS9ERA4UZBrRvLYCdixOkU CAgLSBWRVNTRUxTIFdJVEgg L7LOCSXZJK7RAXjFGUOFHTW YFqZRM5JOWYWSVRYBHGDFTg VSRSBDQUxDSUZJQyBBVEhFU q1XH3fXPt8VMUIaQPDafeVp NDOuCWOQXpKZQjuQYH0YBSE AOgIJK4HLY43KBTvDTAbAOV QpxkNwPGKgVUJLWAQYS4OGT 06sZQUOL6qMEhOJCRDUNUAm cGFyXHBhciBSYXNoYSBBbGZ hdHRhbCwgTUJDSEIgIFxwYX PqyNFwSXyxRXO8k5vulMWhX RBfrZUpNtTjBMEdUKWcb6sx ZGVmbGFuZzEwMzNcZnRuYmp bsFNvKQJsQdYnp0nhx894fM Kpt9eyUQMvGvF0tGNvWDJre Emmtya2lRwyDdRtGJZaw2pb cyBcZmNoYXJzZXQwIEFyaWF fG285ITZtWBarb6hhu4XvZQ UshARxd1Y8KMKIRXmhTsXzK 204l1pjz6bngyOnsEC4FBSm WAP6TXmlkeTmcrV7QJvwoTD lYiD1RRwusuOzVKeqvjIeap EjIuy4GLKaY332OHY1hMnoh 2lzGAX5SVXkUSSzJikqXw7i xPNyC830QWPtRZNUDGYgcZa 0YCYlxrRplmJccCTGl009Z6 29y1zjIPPoykWdvSwJqhmyi 6saZ483DZLzpWCvpgOvVbBg NFIirGHuhHL4IPBrXD4pwsu qSBsaUQnyPLHdbzI1MTXshK YgC7JyKAMgFO1tufysYLM1H ScyTYYyGCD0WsMxTEVrj4Gw ieq7PhMhsr5ztl93BNM0z9H pvEsaDOK5XKV6XuZlBy4cyJ DqOFKaWO9aHfVcbVOmUTZji e42pIgcPNulmtOlkU4xGfAf SVPgvXNkHSFuEZ0enGOdIDL ftI0hofciSBBsFlGfqohuIF SonXpmulKgFk3rvPleWXV1N FeeX2gfnG1dFsT0PHpsG7pt fF3kDKo8YDdjrXA2HXWkzF5 tRI4utnrpa7yrTTibMRlrUF PrqiQ9cqF1FPAouDGoY2Hdi C7mVSBoRI1zswufg7nzVLH4 GLjvLHKyRUQ1PnFoNFCqa3Q fgfc0PlMep7GypEMkIUbuY8 8pq685YMCjzvYcY1xtxQWek nmrqKPgoatrBGfbdqT6JDRd XHBsYWluXGYxXGZzMjBcbGF uZzEwMzNcaGljaFxmMVxkYm RgGTOrXIyjK7dmSdVpH9StC TZvBbOdaYQwJVtdgIF6CXNq GLUmn07ysZg0GNQlqzrfn0I xSSSzgNLszRCpdI7cltXfa5 smFDItCSVuWJXwJ0AhWGN0k TYtVCVtfMKcsCO5OK1njmMr RU5oUJMfRxnvmeEcwVQouaE lJUPlWPqug6riGP5tCNBxcA llqJ3dlFH1TNCjr0qbrCPsk COej1mjy7PpwmEhEUxuUYIb OJweYBAjUFJtMZ8vMXQxhMM xurCye9X4DgzdpOLtmsdtZo hxleX6FXiidrvsLNCcPUchA 4fdKoEnCQStaIelEvnqs0Bk XGYyXGZzMjhccGFyfX0= Clinical Information PAD (peripheral artery (test code = disease) [I73.9] 67 [id number]) year old male with a medical history as below including CHFrEF 25-30% s/p life vest, ESRD on HD TTS, and PAD s/p R AKA on 10/06/21 and L SFA (superficial femoral artery) stent done several years ago at [facility] who presents with worsening L leg and foot pain. Patient states after dialysis on patient had L foot pain and could not walk on it due to pain that has not resolved. He describes the pain as sharp shooting pain from calf to foot. He has not had any motor or sensory loss. He has chronic L foot cyanosis that he states has not changed. He last had SFA stent angioplasty 01/23/[address] Nelson for threatened stent. POSTOPERATIVE DIAGNOSIS: ?Atherosclerosis, left lower extremity andreafski arteries, with gangrene. Gross Description d1honUZpXQSuxWFDYIHsB6h (test code = uksDoOLZniVIdT3HeewhkUS [id number]) jnPM8qUL6mvRirbKCniYVpT F5TLDWzTxFvOAUwnZWfduFj CcGsIXZjkKAvaWW0KJKvAS1 hahqkFUkzAOwpZBLayvJ3VH PofWRgX2NmCNRfBI0convaX HQ6VHrgpO4ljqNFXdujBs4j dHRibHtcZjFcZmNoYXJzZXQ vUVSweYhdNEKmHFq8oA3APv oxZSY6MOCCZbjeDZNbLV8Sm 2ciGOGgaWMuJYV1YVthzWYf AIXiVVDcLNd9CUEiGXzraBZ rNJ8ngVgyTwoeqXtuw1FsfY BcXGlkIDUxMDAyIFxcZGIgI U8CNlNgFDSyPJNgVvXmEIj5 ESx3ZB7VUvPnMUWcODE8GPs 2CKUoITu4FYqjGF1JMPU5Cc y0BvHhWFCyKILcFpLhWJz9W DIgXFxmIEFyaWFsIFxcZnMg RDZjKFfilKTiMF3ygJnozLX pblxmczIwIFNQRUNJTUVOIE TtwLPuUU8BBUDvPZjjNXFou WCFKMX6LU0eINTKYoydyFJp PLXjrSkgFUdjhY7tVT5ACNd 8ihDzEAYgBxGcQ4NhH4pxUY 4gQSBpcyByZWNlaXZlZCBmc kOysTSvxoHwFSQjk7zqagIo VCOrVSpfbSUiOEjqBZQ8vTK bUDQvYOViXWQwTN48T8Fmgm FtZSwgVUggbnVtYmVyLCAib JVjJTAcNFX1ZZFtAz11SSGu tgHuEiDxejVzL55my7tvzBG zo7UuEGE3DT5mKmSgs81dwc lnaHQgYWJvdmUtdGhlLWtuZ CNbLP0jrGFrzWvqwuEyZZYy TSL6ANGsGuLlaYP3PxCuL59 jQUJkTRLaxLGgA9amKOLtv8 66HSlaWF16UAqjPK39UGlaJ H9qTQZnFTQ7dPRzJDGjULC9 YWNoZWQgbmFpbCBiZWFyaW5 fTFVrLZFfLFMInLCtKv2vJD IbXZTtS6Lyg68foRQqX0hhG VL1lPCmJWGjBXSmXbCitZDf kd47jM5guGJ6pjR4tSToi3o dynRcotPju51piDE5cJAnrW JnszIvPRI6vC8nJS3ezwrgg h7tAVJoVVB8l3PrSQcsavJi ruEqeUDfdG51FWZbCVT2jEi hubdvHO3nCDLmOTKiGBGmBC BhcmVhcyBvZiBwdXJwbGUtY tunP6nyWGjouxpaEA6tcGXz dHayDFWsvQrxruTnlfK7i8Y nKAAaMSX5iZHtOKD6ejSssJ 7bbJ5tEYYsd9MmoB2sXQCqg 72fpPjybQAgsFGkudIsFK3c jS7lbWckFEVzhcVip402JPz 0HpaxoCU9JpUzQ04pGEU1Jk HqC24ePpFtjCX1hHNpv58af RJ5dXXrkMNpxdYxROJ4iL9y YN2txiuewaWmydNoVqWuYVZ arNZgct4xDVEyHYPoz19pFY Iew8GyhXoeqkYqRKFtdM2nF bAkJSlpSGSqtD8gTTopAHZ8 KEH8AGyuZVQcwFAayIqyHEG wkRwnMyHhXG1tA1b2JKDhIK tdiJmyM6QeL6iotZQySUZvN JX7AVZclFD2oFBcwUTjI8tt WaUXyZWac0MpT3sxXZ4zxLA ta8MrmBKvsVpho9NztYkhvc FdWOAuGQHpxiJeiXO6iME3f pZ4EEChu2RofJVxmA2nMWbr IHRoZSBhbnRlcmlvciBhbmQ yvQ2lmVQmeJ3jAOVuAezrqX lzIGFuZCBwZXJvbmVhbCBhc rIlkknflq9bAOWrjWKdz8Wf wYQ7jLDaWFHpZ4Njg64qBLU wITKedLDyqTT0OYBhxD1cXH EtQTYuXHBhciANClxwYXIgD WhHXYU6nW1cLNEkMQS1LTed qgDxYBG4IPAtcJ9yQL0hDJT nZiBhqTsux5MnHLPmq2KfvF ybclLdRKXnjG2nFBStyGHbt 5EkpIL9yLAxPBatabYwOSN9 TAJvt2W7cSDfYKVvs0BboNp nsnJnHKMjvI0vOZTbEKKpL1 YmpCWlJG4DIXEuRXV6WCSxj kHyadEzGMJ9qX3oVZ3vfahk witayOVcy1RrcIUgLEMvpnS mILLnXOzcswLoHVU9FMQmm2 U1oXLlOYM9voRpXSXhUOQue SRvoW0aBOtvMGRyLHPgc9S5 EYGqj3Nkc0VpwarjMTOaXBZ zikGuhZ76unzug9VvYIkwsp HrfjKnDN51IWCsetTaNEChM SAeG6UroDevBYPIRvaaZ5Wx a50qKPIgNKC3sLCywtA4xO5 eWRpscJvomU9vEGEurBjiZu Ndm89tNPKaUFPyALPmumElj Jd1FYmddV0lCRailJ2tDNev nQzlkOCQDJNfrTa3yirbFEJ 6mRMqc7Y7KDLuvMmknU2cZL o5rDffDC7uAJpiFP4muHhnA SYfPHPQS7ExAHaapFdmeZ2a EFFwG15ad8WRb6GcFAFaRAy ib0zemTlrs3FdzSOvKLblEE HbuBNqPSgxsZ5bDaCsx7olv Xe6KBwsmeI0XANrbf4SXbdl oW8mReUzv7effDs9QROGBtj lpxH5t5ydsAwso1AhfZLiBO 0NCn0= Disclaimer (test code w4rmvOJbGTLkr3buJGYucPN = [id number]) uZzEwMzNcZnRuYmpcdWMxIH nytjQpWZnko7LvL6WvUfSxC FxhbnNpXGRlZmxhbmcxMDMz CGL9diNiEMPsAFayMIHgUNr zXp4oaBUqnIlyTvTiDATuz0 rlvpEHLRvbCxVyD190PBDmD Lksy4zfx3GsUEBmiAXss9L3 RYZYgtvyhIf4gHsgJ61ev9W 8HtsmF6vuTWQjLENsL7AeTQ 5vLCHdAvr6EBX9HMY7PZUvE MJsF5YtQY8uKPEqsASwKTm5 u7tgtTykTLWnWAX8x7rzKCc treLxLB4qpu2pyUc0a6qzul AkPEGaSOUvpVYOPIJyC1Exd KqfAz0usCk3mWvoRkkkOFM3 Gqy9OX6cja85enp4fBnxBBS nwicrJjX1MSihZDOxmuclVQ n9VNhzRLWyjDZ1MCIqiPDgS 7DpUEOxYA4mkwd8RBW9EHiu NPEpSmW2LOIoxRRnDTIwxYu gGJymc933UUX4StXjYQ3kE1 Gts9R9tP2xhTOoZUWxzGCfT rWyVXCtfn6dhYToUAjre2Od HHC6hbC5jFFawICmLIOsIP4 2Jgghl1SiJpyvb7RrJ58ozW R7RLida8gvKS9oRiL4hrNmA Cwib7ahrM8pZoX2OMpdKV2r SF3mNRWcwE5efbzhTLKuBnH qbctvVEMccSbxscMmNk5qdW hpJGL5UXvbZ5tpcK8kCmC3U VnoI5fzhJ8vPBj8HSlzfBF2 ADUojG9bYO4dfhngx1cjFWz gPDnlDNExtxG8xfM7JGAsmQ TiL9AiqU5eSJTsNP5dykjot 2kaPKS0UJntUUSaQDQ3IgXn UXRhf5Grhsi8TgFkc8DorRO cLCozP04oq331PWDyxxMaA6 xwbGFpblxwbGFpblxmMFxmc kL7CHYaivIyg3FqSKVvPAC7 AMljTLyuvOXlXIYeaCedf4s aP5OehZOjOQQtXWpjEEQkTT ZzMjBcbGFuZzEwMzNcaGlja CanNHcuDdKqEEIxKFezX4vz RqFpJ9YiNJSgUhNfbMArQ3e bGYfgrrIwMGVtdvXnrCW7YY noJ4c7AGPswyWvlMd0guGxC kZfELBwEQD0TUrfkRUnNJZr z3UdyaykuOQmIf3xvSGcDMA bwN3pMJCuBFCsZTlzGT5xhR e6APEUpYYihMBnZnCKNZXdP K96boQpWLGKljxun6R8PDih VRYds0VpeBXzO2urm6EiQAO gb70zTB4fx2N3l3fiTWR8DS 1sq0DhWQAeuDIggYJuXDWkp 3Qjiwdtk7AtRPHgitDot1Oa ZCBhbmQgaXRzIHBlcmZvcm1 yazTwVOTsZCEhM1ZaeojdnI bqqiNtGTMcrk3sxdEgYIS7Z SUFPUXtPNDxa2QteZ8mbKEW XTT0eDBxwp0duwCHtBBbXUV mqn93CVRoIA8eW8xtHKQkVF RykaYyqEShd8HqTTGyvRA4k KCjID7KOiJTv66eZRVqKHPU ayNzIFIntIjjiOB4rrE4iT6 uIChGREEpLlx+IFRoZSBGRE SiHH4lvbGqc8SybdPyaKurF GPiyHLda3LmnBAwv8NsxDja c3VycMShkXAnZP7sWYIzfsh vKKYsEARHNkNTGNRecnX8u4 MxQGLbWZWjVBR3sMdkpjl0B AQreR3uFIVhS8yhqylwTWip XAZct2ZjaQ4irTGLdVLab5S foFUtpFOHuEPdJP1vejZnAI hPTLiSDHX7ezVrWKNsq0AtZ TgpG6ftH17tsLowhQm6pWG5 EGQ3lN7fPlu+IFxwYXJccGF yIEFwcHJvcHJpYXRlbHkgcm ZhW9AzuiChwD9zpELkluWnP J8zHQ3aB1A5aCJoKWWanlLg p1dePAbnwoRpFhAlieLdTOL uTGarLXMfj4ZpTYfeSGQ8DI lucyBpbmNsdWRpbmcgSCZFL QUAqROneFDeHHH2CLvvfuVc dvIeHH5owY9klIzbzT8vsHT acAE2skwcLZEzHZCqvWxuGC FtGN6stHQgCDOkbrDRaRift UOllI5eO6FwMPBkSYTpbp1x NOOrgG8fQTvtf7RaizelKAV gANEnBEYpjaFxve4kEUMxrG BOVA1VFPjdfHPqn9KevvDcJ 0qIYPB7ITNrZcQzHddiVVAw hXGidSIuFTXxnr42VCWotK2 umAjyVVAhkK7nyJ0gxVfboW 9cIoSwCjTgLAsqSW3vRPKqD 6khjWRfALQuQKAyL6myNiSl cP9ymKkdNZngBmAwDiEhSXs wVLB3oK== Embedded Images (test code = 4472817505) [facility] GLUCOSE (AUTOMATED)2022-03-04 18:41:36 Test Item Value Reference Range Interpretation Comments POCT GLU (test code = 7349464125) 195 mg/dL 70-110 H Lab Interpretation (test code = Abnormal 31684-7) [facility] 17:54:09 Test Item Value Reference Range Interpretation Comments APTT Patient (test code See_Comment H [Au tomated message] = 3173-2) The system [employer] generated this result transmitted ref erence range: 26 - 36 Seconds. The reference range was not used to int erpret this result as normal/abnormal . Lab Interpretation (test Abnormal code = 74635-5) [facility] GLUCOSE (AUTOMATED)2022-03-04 14:13:30 Test Item Value Reference Range Interpretation Comments POCT GLU (test code = 7106694220) 161 mg/dL 70-110 H Lab Interpretation (test code = Abnormal 38349-4) [facility] METABOLIC PANEL (NA, K, CL, CO2, GLUCOSE, BUN, CREATININE, CA)2022-03-04 11:43:10 Test Item Value Reference Range Interpretation Comments NA (test code = 134 mmol/L 135-145 L 6046038074) K (test code = 5.5 mmol/L 3.5-5 H 5094268071) CL (test code = 97 mmol/L 98-108 L 3561081662) CO2 TOTAL (test code = 23 mmol/L 23-31 7822497259) AGAP (test code = 2-16 0080017963) BUN (test code = 55 mg/dL 7-23 H 2805597858) GLUCOSE (test code = 130 mg/dL 70-110 H 8190020528) CREATININE (test code = 6.74 mg/dL 0.6-1.25 H 3346969669) CALCIUM (test code = 9.6 mg/dL 8.6-10.6 2339969137) eGFR (test code = mL/min/1.73m2 0551009319) BRIAN (test code = BRIAN) Association of Glomerular Filtration Rate (GFR) and Staging of Kidney Disease* + --+ --+ ------+| GFR (mL/min/1.73 m2) ?| With Kidney Damage ?| ?Without Kidney Damage+ --------+ --------+ +| ?>90 ?| ?Stage one ?| ? Normal ?+ ---+ ---+ -------+| ?60-89 ?| ?Stage two ?| ? Decreased GFR ? + --+ --+ ------+| ?30-59 ?| ?Stage three ?| ? Stage three ? + --+ --+ ------+| ?15-29 ?| ?Stage four ? | ? Stage four ?+ ---+ ---+ -------+| ?<15 (or dialysis) ? ?| ?Stage five ? | ? Stage five ?+ ---+ ---+ -------+ *Each stage assumes the associated GFR level has been in effect for at least three months. ?Stages 1 to 5, with or without kidney disease, indicate chronic kidney disease. Notes: Determination of stages one and two (with eGFR >59mL/min/1.73 m2) requires estimation of kidney damage for at least three months as defined by structural or functional abnormalities of the kidney, manifested by either:Pathological abnormalities or Markers of kidney damage (including abnormalities in the composition of the blood or urine or abnormalities in imaging tests). Lab Interpretation Abnormal (test code = 82405-7) [facility] Test Item Value Reference Range Interpretation Comments MAGNESIUM (test code = 3005534381) 2.5 mg/dL 1.7-2.4 H Lab Interpretation (test code = Abnormal 20505-9) [facility]43:10 Test Item Value Reference Range Interpretation Comments PHOSPHORUS (test code = 0306437898) 5.6 mg/dL 2.5-5 H Lab Interpretation (test code = Abnormal 87364-5) [facility] [id number] 11:05:46 Test Item Value Reference Range Interpretation Comments WBC (test code = See_Comment H [Automated 6690-2) message] The system which generated this result transmit katina reference range : 4.20 - 10.70 10*3/?L. The reference range was not used to interpret this result as normal/abnormal . RBC (test code = See_Comment L [Automated 789-8) message] The system which generated this result transmit katina reference range : 4.26 - 5.52 10*6/?L. The reference range was not used to interpret this result as normal/abnormal . HGB (test code = 7.6 g/dL 12.2-16.4 L 718-7) HCT (test code = 24.3 % 38.4-49.3 L 4544-3) MCV (test code = 105.7 fL 81.7-95.6 H 787-2) MCH (test code = 33.0 pg 26.1-32.7 H 785-6) MCHC (test code = 31.3 g/dL 31.2-35 786-4) RDW-SD (test code = 56.9 fL 38.5-51.6 H 22228-3) RDW-CV (test code = 15.0 % 12.1-15.4 788-0) PLT (test code = See_Comment [Automated 777-3) message] The system which generated this result transmit katina reference range : 150 - 328 10*3/ ?L. The reference range was not u sed to interpret th is result as normal/abnormal . MPV (test code = 10.5 fL 9.8-13 90309-3) NRBC/100 WBC (test See_Comment [Automat ed code = 6974597437) message] The system which generated this result transmit katina reference range : 0.0 - 10.0 /100 WBCs. The reference range was not used to interpret this result as normal/abnormal . NRBC x10^3 (test code See_Comment [Auto mated = 8336588791) message] The system which generated this result transmit katina reference range : 10*3/?L. The reference range was not used to interpret this result as normal/abnormal . GRAN MAT (NEUT) % 80.6 % (test code = 770-8) IMM GRAN % (test code 1.10 % = 2012376659) LYMPH % (test code = 5.0 % 736-9) MONO % (test code = 11.9 % 5905-5) EOS % (test code = 0.9 % 713-8) BASO % (test code = 0.5 % 706-2) GRAN MAT x10^3(ANC) 12.40 10*3/uL 1.99-6.95 H (test code = 4957029040) IMM GRAN x10^3 (test 0.17 10*3/uL 0-0.06 H code = 9060553807) LYMPH x10^3 (test code 0.77 10*3/uL 1.09-3.23 L = 731-0) MONO x10^3 (test code 1.83 10*3/uL 0.36-1.02 H = 742-7) EOS x10^3 (test code = 0.14 10*3/uL 0.06-0.53 711-2) BASO x10^3 (test code 0.08 10*3/uL 0.01-0.09 = 704-7) Lab Interpretation Abnormal (test code = 29960-4) [facility]04 10:50:26 Test Item Value Reference Range Interpretation Comments APTT Patient (test code See_Comment H [Au tomated message] = 3173-2) The system [employer] generated this result transmitted ref erence range: 26 - 36 Seconds. The reference range was not used to int erpret this result as normal/abnormal . Lab Interpretation (test Abnormal code = 76409-3) [facility] / [id number] 10:50:26 Test Item Value Reference Range Interpretation Comments PROTIME PATIENT (test See_Comment H [Auto mated message] code = 5964-2) The system [employer] generated this result transmitted ref erence range: 10.1 - 1 2.6 Seconds. The reference range was not used to int erpret this result as normal/abnormal . INR (test code = 6301-6) Nor mal INR <1.1; Warfarin Therap eutic range 2.0 to 3. 0 or 2.5 to 3.5, dep ending upon the indica tions. Lab Interpretation (test Abnormal code = 54804-9) [facility] GLUCOSE (AUTOMATED)2022-03-04 00:49:50 Test Item Value Reference Range Interpretation Comments POCT GLU (test code = 7927874469) 156 mg/dL 70-110 H Lab Interpretation (test code = Abnormal 53840-4) [facility]22-[facility]-03 21:52:31 Test Item Value Reference Range Interpretation Comments APTT Patient (test code See_Comment H [Au tomated message] = 3173-2) The system [employer] generated this result transmitted ref erence range: 26 - 36 Seconds. The reference range was not used to int erpret this result as normal/abnormal . Lab Interpretation (test Abnormal code = 98439-5) [facility] GLUCOSE (AUTOMATED)2022-03-03 17:27:16 Test Item Value Reference Range Interpretation Comments POCT GLU (test code = 5583156800) 68 mg/dL 70-110 L Lab Interpretation (test code = Abnormal 59018-3) [facility] GLUCOSE (AUTOMATED)2022-03-03 17:27:16 Test Item Value Reference Range Interpretation Comments POCT GLU (test code = 6788676260) 70 mg/dL 70-110 Lab Interpretation (test code = Normal 13250-9) [facility] GLUCOSE (AUTOMATED)2022-03-03 17:02:30 Test Item Value Reference Range Interpretation Comments POCT GLU (test code = 5034984600) 67 mg/dL 70-110 L Lab Interpretation (test code = Abnormal 14816-3) [facility] [id number] 15:35:02 Test Item Value Reference Range Interpretation Comments APTT Patient (test code See_Comment H [Au tomated message] = 3173-2) The system [employer] generated this result transmitted ref erence range: 26 - 36 Seconds. The reference range was not used to int erpret this result as normal/abnormal . Lab Interpretation (test Abnormal code = 77903-0) [facility] 09:59:35 Test Item Value Reference Range Interpretation Comments POCT GLU (test code = 7234547084) 123 mg/dL 70-110 H Lab Interpretation (test code = Abnormal 86654-1) [facility] METABOLIC PANEL (NA, K, CL, CO2, GLUCOSE, BUN, CREATININE, CA)2022-03-03 09:38:53 Test Item Value Reference Range Interpretation Comments NA (test code = 130 mmol/L 135-145 L 5045213807) K (test code = 6.0 mmol/L 3.5-5 H 3414427852) CL (test code = 95 mmol/L 98-108 L 9154430514) CO2 TOTAL (test code = 20 mmol/L 23-31 L 5073311398) AGAP (test code = 2-16 3315481362) BUN (test code = 89 mg/dL 7-23 H 4691336037) GLUCOSE (test code = 42 mg/dL 70-110 LL 2003518763) CREATININE (test code = 9.93 mg/dL 0.6-1.25 H 6494619641) CALCIUM (test code = 9.8 mg/dL 8.6-10.6 6264628587) eGFR (test code = mL/min/1.73m2 8546060765) BRIAN (test code = BRIAN) Association of Glomerular Filtration Rate (GFR) and Staging of Kidney Disease* + --+ --+ ------+| GFR (mL/min/1.73 m2) ?| With Kidney Damage ?| ?Without Kidney Damage+ --------+ --------+ +| ?>90 ?| ?Stage one ?| ? Normal ?+ ---+ ---+ -------+| ?60-89 ?| ?Stage two ?| ? Decreased GFR ? + --+ --+ ------+| ?30-59 ?| ?Stage three ?| ? Stage three ? + --+ --+ ------+| ?15-29 ?| ?Stage four ? | ? Stage four ?+ ---+ ---+ -------+| ?<15 (or dialysis) ? ?| ?Stage five ? | ? Stage five ?+ ---+ ---+ -------+ *Each stage assumes the associated GFR level has been in effect for at least three months. ?Stages 1 to 5, with or without kidney disease, indicate chronic kidney disease. Notes: Determination of stages one and two (with eGFR >59mL/min/1.73 m2) requires estimation of kidney damage for at least three months as defined by structural or functional abnormalities of the kidney, manifested by either:Pathological abnormalities or Markers of kidney damage (including abnormalities in the composition of the blood or urine or abnormalities in imaging tests). Lab Interpretation Abnormal (test code = 97806-9) [facility]22-[facility]-03 08:37:38 Test Item Value Reference Range Interpretation Comments APTT Patient (test code See_Comment H [Au tomated message] = 3173-2) The system [employer] generated this result transmitted ref erence range: 26 - 36 Seconds. The reference range was not used to int erpret this result as normal/abnormal . Lab Interpretation (test Abnormal code = 33237-5) [facility] / [id number] 08:37:38 Test Item Value Reference Range Interpretation Comments PROTIME PATIENT (test See_Comment H [Auto mated message] code = 5964-2) The system [employer] generated this result transmitted ref erence range: 10.1 - 1 2.6 Seconds. The reference range was not used to int erpret this result as normal/abnormal . INR (test code = 6301-6) Nor mal INR <1.1; Warfarin Therap eutic range 2.0 to 3. 0 or 2.5 to 3.5, dep ending upon the indica tions. Lab Interpretation (test Abnormal code = 37057-0) [facility] [id number] 08:18:00 Test Item Value Reference Range Interpretation Comments WBC (test code = See_Comment H [Automated 6690-2) message] The system which generated this result transmit katina reference range : 4.20 - 10.70 10*3/?L. The reference range was not used to interpret this result as normal/abnormal . RBC (test code = See_Comment L [Automated 789-8) message] The system which generated this result transmit katina reference range : 4.26 - 5.52 10*6/?L. The reference range was not used to interpret this result as normal/abnormal . HGB (test code = 7.6 g/dL 12.2-16.4 L 718-7) HCT (test code = 23.4 % 38.4-49.3 L 4544-3) MCV (test code = 102.6 fL 81.7-95.6 H 787-2) MCH (test code = 33.3 pg 26.1-32.7 H 785-6) MCHC (test code = 32.5 g/dL 31.2-35 786-4) RDW-SD (test code = 55.7 fL 38.5-51.6 H 39110-0) RDW-CV (test code = 14.7 % 12.1-15.4 788-0) PLT (test code = See_Comment [Automated 777-3) message] The system which generated this result transmit katina reference range : 150 - 328 10*3/ ?L. The reference range was not u sed to interpret th is result as normal/abnormal . MPV (test code = 10.0 fL 9.8-13 69089-1) NRBC/100 WBC (test See_Comment [Automat ed code = 6924480535) message] The system which generated this result transmit katina reference range : 0.0 - 10.0 /100 WBCs. The reference range was not used to interpret this result as normal/abnormal . NRBC x10^3 (test code See_Comment [Auto mated = 7851161334) message] The system which generated this result transmit katina reference range : 10*3/?L. The reference range was not used to interpret this result as normal/abnormal . GRAN MAT (NEUT) % 82.7 % (test code = 770-8) IMM GRAN % (test code 0.80 % = 1401544697) LYMPH % (test code = 5.0 % 736-9) MONO % (test code = 9.2 % 5905-5) EOS % (test code = 1.6 % 713-8) BASO % (test code = 0.7 % 706-2) GRAN MAT x10^3(ANC) 12.54 10*3/uL 1.99-6.95 H (test code = 0756231031) IMM GRAN x10^3 (test 0.12 10*3/uL 0-0.06 H code = 4858876041) LYMPH x10^3 (test code 0.75 10*3/uL 1.09-3.23 L = 731-0) MONO x10^3 (test code 1.39 10*3/uL 0.36-1.02 H = 742-7) EOS x10^3 (test code = 0.24 10*3/uL 0.06-0.53 711-2) BASO x10^3 (test code 0.10 10*3/uL 0.01-0.09 H = 704-7) Lab Interpretation Abnormal (test code = 87807-6) [facility] GLUCOSE (AUTOMATED)2022-03-03 03:46:15 Test Item Value Reference Range Interpretation Comments POCT GLU (test code = 1085522839) 109 mg/dL 70-110 Lab Interpretation (test code = Normal 24394-6) [facility] GLUCOSE (AUTOMATED)2022-03-03 03:15:49 Test Item Value Reference Range Interpretation Comments POCT GLU (test code = 1082779406) 57 mg/dL 70-110 L Lab Interpretation (test code = Abnormal 04468-3) [facility] GLUCOSE (AUTOMATED)2022-03-02 21:50:38 Test Item Value Reference Range Interpretation Comments POCT GLU (test code = 5035571718) 120 mg/dL 70-110 H Lab Interpretation (test code = Abnormal 41357-5) [facility] 19:46:17 Test Item Value Reference Range Interpretation Comments APTT Patient (test code See_Comment H [Au tomated message] = 5043-2) The system [employer] generated this result transmitted ref erence range: 26 - 36 Seconds. The reference range was not used to int erpret this result as normal/abnormal . Lab Interpretation (test Abnormal code = 81420-2) [facility] GLUCOSE (AUTOMATED)2022-03-02 17:36:06 Test Item Value Reference Range Interpretation Comments POCT GLU (test code = 6846100735) 235 mg/dL 70-110 H Lab Interpretation (test code = Abnormal 89375-3) [facility] GLUCOSE (AUTOMATED)2022-03-02 14:27:25 Test Item Value Reference Range Interpretation Comments POCT GLU (test code = 9534617027) 54 mg/dL 70-110 L Lab Interpretation (test code = Abnormal 87263-2) [facility] METABOLIC PANEL (NA, K, CL, CO2, GLUCOSE, BUN, CREATININE, CA)2022-03-02 09:02:32 Test Item Value Reference Range Interpretation Comments NA (test code = 132 mmol/L 135-145 L 0685584705) K (test code = 5.0 mmol/L 3.5-5 0186939322) CL (test code = 97 mmol/L 98-108 L 9652635633) CO2 TOTAL (test code = 23 mmol/L 23-31 0302179463) AGAP (test code = 2-16 6730778974) BUN (test code = 67 mg/dL 7-23 H 0074699489) GLUCOSE (test code = 74 mg/dL 70-110 0720041084) CREATININE (test code = 8.21 mg/dL 0.6-1.25 H 8529439996) CALCIUM (test code = 9.7 mg/dL 8.6-10.6 8517613062) eGFR (test code = mL/min/1.73m2 3856024797) BRIAN (test code = BRIAN) Association of Glomerular Filtration Rate (GFR) and Staging of Kidney Disease* + --+ --+ ------+| GFR (mL/min/1.73 m2) ?| With Kidney Damage ?| ?Without Kidney Damage+ --------+ --------+ +| ?>90 ?| ?Stage one ?| ? Normal ?+ ---+ ---+ -------+| ?60-89 ?| ?Stage two ?| ? Decreased GFR ? + --+ --+ ------+| ?30-59 ?| ?Stage three ?| ? Stage three ? + --+ --+ ------+| ?15-29 ?| ?Stage four ? | ? Stage four ?+ ---+ ---+ -------+| ?<15 (or dialysis) ? ?| ?Stage five ? | ? Stage five ?+ ---+ ---+ -------+ *Each stage assumes the associated GFR level has been in effect for at least three months. ?Stages 1 to 5, with or without kidney disease, indicate chronic kidney disease. Notes: Determination of stages one and two (with eGFR >59mL/min/1.73 m2) requires estimation of kidney damage for at least three months as defined by structural or functional abnormalities of the kidney, manifested by either:Pathological abnormalities or Markers of kidney damage (including abnormalities in the composition of the blood or urine or abnormalities in imaging tests). Lab Interpretation Abnormal (test code = 88675-4) [facility] Test Item Value Reference Range Interpretation Comments MAGNESIUM (test code = 6045967640) 2.4 mg/dL 1.7-2.4 Lab Interpretation (test code = Normal 01095-2) [facility] / [id number] 08:40:27 Test Item Value Reference Range Interpretation Comments PROTIME PATIENT (test See_Comment H [Auto mated message] code = 5964-2) The system wh ich generated this result transmitted ref erence range: 10.1 - 1 2.6 Seconds. The reference range was not used to int erpret this result as normal/abnormal . INR (test code = 6301-6) Nor mal INR <1.1; Warfarin Therap eutic range 2.0 to 3. 0 or 2.5 to 3.5, dep ending upon the indica tions. Lab Interpretation (test Abnormal code = 90138-0) [facility] [id number] 08:38:51 Test Item Value Reference Range Interpretation Comments WBC (test code = See_Comment H [Automated 6690-2) message] The system which generated this result transmit katina reference range : 4.20 - 10.70 10*3/?L. The reference range was not used to interpret this result as normal/abnormal . RBC (test code = See_Comment L [Automated 789-8) message] The system which generated this result transmit katina reference range : 4.26 - 5.52 10*6/?L. The reference range was not used to interpret this result as normal/abnormal . HGB (test code = 7.4 g/dL 12.2-16.4 L 718-7) HCT (test code = 22.8 % 38.4-49.3 L 4544-3) MCV (test code = 103.2 fL 81.7-95.6 H 787-2) MCH (test code = 33.5 pg 26.1-32.7 H 785-6) MCHC (test code = 32.5 g/dL 31.2-35 786-4) RDW-SD (test code = 54.7 fL 38.5-51.6 H 38245-5) RDW-CV (test code = 14.6 % 12.1-15.4 788-0) PLT (test code = See_Comment [Automated 777-3) message] The system which generated this result transmit katina reference range : 150 - 328 10*3/ ?L. The reference range was not u sed to interpret th is result as normal/abnormal . MPV (test code = 10.0 fL 9.8-13 53909-6) NRBC/100 WBC (test See_Comment [Automat ed code = 2811581371) message] The system which generated this result transmit katina reference range : 0.0 - 10.0 /100 WBCs. The reference range was not used to interpret this result as normal/abnormal . NRBC x10^3 (test code See_Comment [Auto mated = 8758654556) message] The system which generated this result transmit katina reference range : 10*3/?L. The reference range was not used to interpret this result as normal/abnormal . GRAN MAT (NEUT) % 81.6 % (test code = 770-8) IMM GRAN % (test code 0.60 % = 1033026489) LYMPH % (test code = 6.7 % 736-9) MONO % (test code = 8.4 % 5905-5) EOS % (test code = 2.1 % 713-8) BASO % (test code = 0.6 % 706-2) GRAN MAT x10^3(ANC) 10.28 10*3/uL 1.99-6.95 H (test code = 2251564536) IMM GRAN x10^3 (test 0.08 10*3/uL 0-0.06 H code = 4085031908) LYMPH x10^3 (test code 0.84 10*3/uL 1.09-3.23 L = 731-0) MONO x10^3 (test code 1.06 10*3/uL 0.36-1.02 H = 742-7) EOS x10^3 (test code = 0.27 10*3/uL 0.06-0.53 711-2) BASO x10^3 (test code 0.07 10*3/uL 0.01-0.09 = 704-7) Lab Interpretation Abnormal (test code = 51747-3) [facility] GLUCOSE (AUTOMATED)2022-03-02 02:02:24 Test Item Value Reference Range Interpretation Comments POCT GLU (test code = 8931121968) 167 mg/dL 70-110 H Lab Interpretation (test code = Abnormal 82639-5) [facility] GLUCOSE (AUTOMATED)2022-03-01 22:25:20 Test Item Value Reference Range Interpretation Comments POCT GLU (test code = 3622738916) 221 mg/dL 70-110 H Lab Interpretation (test code = Abnormal 95236-2) [facility] GLUCOSE (AUTOMATED)2022-03-01 19:44:54 Test Item Value Reference Range Interpretation Comments POCT GLU (test code = 0077872468) 221 mg/dL 70-110 H Lab Interpretation (test code = Abnormal 42929-2) [facility] / [id number] 13:55:20 Test Item Value Reference Range Interpretation Comments PROTIME PATIENT (test See_Comment H [Auto mated message] code = 5964-2) The system [employer] generated this result transmitted ref erence range: 10.1 - 1 2.6 Seconds. The reference range was not used to int erpret this result as normal/abnormal . INR (test code = 6301-6) Nor mal INR <1.1; Warfarin Therap eutic range 2.0 to 3. 0 or 2.5 to 3.5, dep ending upon the indica tions. Lab Interpretation (test Abnormal code = 25550-3) [facility] 13:31:45 Test Item Value Reference Range Interpretation Comments POCT GLU (test code = 6306727867) 147 mg/dL 70-110 H Lab Interpretation (test code = Abnormal 53270-8) [facility] METABOLIC PANEL (NA, K, CL, CO2, GLUCOSE, BUN, CREATININE, CA)2022-03-01 10:56:51 Test Item Value Reference Range Interpretation Comments NA (test code = 135 mmol/L 135-145 6323743576) K (test code = 5.0 mmol/L 3.5-5 2462818357) CL (test code = 99 mmol/L 98-108 1358227599) CO2 TOTAL (test code = 24 mmol/L 23-31 4616164592) AGAP (test code = 2-16 2685116916) BUN (test code = 45 mg/dL 7-23 H 3549301251) GLUCOSE (test code = 131 mg/dL 70-110 H 2185908615) CREATININE (test code = 7.09 mg/dL 0.6-1.25 H 4738894509) CALCIUM (test code = 9.9 mg/dL 8.6-10.6 5792856980) eGFR (test code = mL/min/1.73m2 8381933169) BRIAN (test code = BRIAN) Association of Glomerular Filtration Rate (GFR) and Staging of Kidney Disease* + --+ --+ ------+| GFR (mL/min/1.73 m2) ?| With Kidney Damage ?| ?Without Kidney Damage+ --------+ --------+ +| ?>90 ?| ?Stage one ?| ? Normal ?+ ---+ ---+ -------+| ?60-89 ?| ?Stage two ?| ? Decreased GFR ? + --+ --+ ------+| ?30-59 ?| ?Stage three ?| ? Stage three ? + --+ --+ ------+| ?15-29 ?| ?Stage four ? | ? Stage four ?+ ---+ ---+ -------+| ?<15 (or dialysis) ? ?| ?Stage five ? | ? Stage five ?+ ---+ ---+ -------+ *Each stage assumes the associated GFR level has been in effect for at least three months. ?Stages 1 to 5, with or without kidney disease, indicate chronic kidney disease. Notes: Determination of stages one and two (with eGFR >59mL/min/1.73 m2) requires estimation of kidney damage for at least three months as defined by structural or functional abnormalities of the kidney, manifested by either:Pathological abnormalities or Markers of kidney damage (including abnormalities in the composition of the blood or urine or abnormalities in imaging tests). Lab Interpretation Abnormal (test code = 48732-0) [facility]22-[facility]-01 10:36:10 Test Item Value Reference Range Interpretation Comments APTT Patient (test code See_Comment H [Au tomated message] = 3753-2) The system [employer] generated this result transmitted ref erence range: 26 - 36 Seconds. The reference range was not used to int erpret this result as normal/abnormal . Lab Interpretation (test Abnormal code = 41995-2) [facility] [id number] 10:30:12 Test Item Value Reference Range Interpretation Comments WBC (test code = See_Comment H [Automated 6690-2) message] The system which generated this result transmit katina reference range : 4.20 - 10.70 10*3/?L. The reference range was not used to interpret this result as normal/abnormal . RBC (test code = See_Comment L [Automated 789-8) message] The system which generated this result transmit katina reference range : 4.26 - 5.52 10*6/?L. The reference range was not used to interpret this result as normal/abnormal . HGB (test code = 8.1 g/dL 12.2-16.4 L 718-7) HCT (test code = 24.9 % 38.4-49.3 L 4544-3) MCV (test code = 102.0 fL 81.7-95.6 H 787-2) MCH (test code = 33.2 pg 26.1-32.7 H 785-6) MCHC (test code = 32.5 g/dL 31.2-35 786-4) RDW-SD (test code = 54.8 fL 38.5-51.6 H 75189-4) RDW-CV (test code = 14.9 % 12.1-15.4 788-0) PLT (test code = See_Comment [Automated 777-3) message] The system which generated this result transmit katina reference range : 150 - 328 10*3/ ?L. The reference range was not u sed to interpret th is result as normal/abnormal . MPV (test code = 9.9 fL 9.8-13 37977-1) NRBC/100 WBC (test See_Comment [Automat ed code = 5202706966) message] The system which generated this result transmit katina reference range : 0.0 - 10.0 /100 WBCs. The reference range was not used to interpret this result as normal/abnormal . NRBC x10^3 (test code See_Comment [Auto mated = 9922284571) message] The system which generated this result transmit katina reference range : 10*3/?L. The reference range was not used to interpret this result as normal/abnormal . GRAN MAT (NEUT) % 84.7 % (test code = 770-8) IMM GRAN % (test code 0.80 % = 1075531819) LYMPH % (test code = 5.1 % 736-9) MONO % (test code = 8.6 % 5905-5) EOS % (test code = 0.4 % 713-8) BASO % (test code = 0.4 % 706-2) GRAN MAT x10^3(ANC) 12.18 10*3/uL 1.99-6.95 H (test code = 4235535510) IMM GRAN x10^3 (test 0.11 10*3/uL 0-0.06 H code = 5666506306) LYMPH x10^3 (test code 0.73 10*3/uL 1.09-3.23 L = 731-0) MONO x10^3 (test code 1.23 10*3/uL 0.36-1.02 H = 742-7) EOS x10^3 (test code = 0.06 10*3/uL 0.06-0.53 711-2) BASO x10^3 (test code 0.06 10*3/uL 0.01-0.09 = 704-7) Lab Interpretation Abnormal (test code = 60127-4) [facility] GLUCOSE (AUTOMATED)2022-03-01 05:07:51 Test Item Value Reference Range Interpretation Comments POCT GLU (test code = 1288995149) 246 mg/dL 70-110 H Lab Interpretation (test code = Abnormal 62741-1) [facility] GLUCOSE (AUTOMATED)2022-03-01 02:20:25 Test Item Value Reference Range Interpretation Comments POCT GLU (test code = 2309468204) 367 mg/dL 70-110 H Lab Interpretation (test code = Abnormal 79674-7) [facility]2022-02-28 22:25:06 Test Item Value Reference Range Interpretation Comments APTT Patient (test code See_Comment H [Au tomated message] = 3173-2) The system [employer] generated this result transmitted ref erence range: 26 - 36 Seconds. The reference range was not used to int erpret this result as normal/abnormal . Lab Interpretation (test Abnormal code = 78208-4) [facility] GLUCOSE (AUTOMATED)2022-02-28 22:06:18 Test Item Value Reference Range Interpretation Comments POCT GLU (test code = 3634680490) 433 mg/dL 70-110 H Lab Interpretation (test code = Abnormal 68342-9) [facility]:06:13 Test Item Value Reference Range Interpretation Comments POCT GLU (test code = 6989878173) 421 mg/dL 70-110 H Lab Interpretation (test code = Abnormal 16096-7) [facility] 22:06:12 Test Item Value Reference Range Interpretation Comments POCT GLU (test code = 8733641349) 405 mg/dL 70-110 H Lab Interpretation (test code = Abnormal 21844-3) [facility] 18:31:18 Test Item Value Reference Range Interpretation Comments POCT GLU (test code = 251 mg/dL 70-110 H Notifi ed Provider 2136670319) Lab Interpretation (test Abnormal code = 09371-8) [facility] GLUCOSE (AUTOMATED)2022-02-28 16:33:40 Test Item Value Reference Range Interpretation Comments POCT GLU (test code = 1602327737) 126 mg/dL 70-110 H Lab Interpretation (test code = Abnormal 69132-3) [facility]2022-02-28 15:44:01 Test Item Value Reference Range Interpretation Comments APTT Patient (test code See_Comment H [Au tomated message] = 3173-2) The system [employer] generated this result transmitted ref erence range: 26 - 36 Seconds. The reference range was not used to int erpret this result as normal/abnormal . Lab Interpretation (test Abnormal code = 52051-1) [facility] GLUCOSE (AUTOMATED)2022-02-28 12:46:40 Test Item Value Reference Range Interpretation Comments POCT GLU (test code = 4321535652) 100 mg/dL 70-110 Lab Interpretation (test code = Normal 89639-7) [facility] GLUCOSE (AUTOMATED)2022-02-28 10:31:30 Test Item Value Reference Range Interpretation Comments POCT GLU (test code = 5404807752) 104 mg/dL 70-110 Lab Interpretation (test code = Normal 24906-8) [facility] METABOLIC PANEL (NA, K, CL, CO2, GLUCOSE, BUN, CREATININE, CA)2022-02-28 09:41:27 Test Item Value Reference Range Interpretation Comments NA (test code = 133 mmol/L 135-145 L 8099466767) K (test code = 6.1 mmol/L 3.5-5 HH 1685789125) CL (test code = 97 mmol/L 98-108 L 7930347177) CO2 TOTAL (test code = 21 mmol/L 23-31 L 0110749920) AGAP (test code = 2-16 4480926460) BUN (test code = 57 mg/dL 7-23 H 5615339279) GLUCOSE (test code = 95 mg/dL 70-110 6087363381) CREATININE (test code = 9.45 mg/dL 0.6-1.25 H 7206472809) CALCIUM (test code = 10.1 mg/dL 8.6-10.6 7198036733) eGFR (test code = mL/min/1.73m2 3722620845) BRIAN (test code = BRIAN) Association of Glomerular Filtration Rate (GFR) and Staging of Kidney Disease* + --+ --+ ------+| GFR (mL/min/1.73 m2) ?| With Kidney Damage ?| ?Without Kidney Damage+ --------+ --------+ +| ?>90 ?| ?Stage one ?| ? Normal ?+ ---+ ---+ -------+| ?60-89 ?| ?Stage two ?| ? Decreased GFR ? + --+ --+ ------+| ?30-59 ?| ?Stage three ?| ? Stage three ? + --+ --+ ------+| ?15-29 ?| ?Stage four ? | ? Stage four ?+ ---+ ---+ -------+| ?<15 (or dialysis) ? ?| ?Stage five ? | ? Stage five ?+ ---+ ---+ -------+ *Each stage assumes the associated GFR level has been in effect for at least three months. ?Stages 1 to 5, with or without kidney disease, indicate chronic kidney disease. Notes: Determination of stages one and two (with eGFR >59mL/min/1.73 m2) requires estimation of kidney damage for at least three months as defined by structural or functional abnormalities of the kidney, manifested by either:Pathological abnormalities or Markers of kidney damage (including abnormalities in the composition of the blood or urine or abnormalities in imaging tests). Lab Interpretation Abnormal (test code = 64136-4) [facility]:31:32 Test Item Value Reference Range Interpretation Comments MAGNESIUM (test code = 3446551368) 2.4 mg/dL 1.7-2.4 Lab Interpretation (test code = Normal 88865-9) [facility] 09:31:32 Test Item Value Reference Range Interpretation Comments PHOSPHORUS (test code = 7203932108) 7.1 mg/dL 2.5-5 H Lab Interpretation (test code = Abnormal 70988-7) [facility]2022-02-28 07:50:48 Test Item Value Reference Range Interpretation Comments APTT Patient (test code See_Comment H [Au tomated message] = 0503-2) The system ic [employer] generated this result transmitted ref erence range: 26 - 36 Seconds. The reference range was not used to int erpret this result as normal/abnormal . Lab Interpretation (test Abnormal code = 60911-5) [facility] WITH [id number] 07:38:03 Test Item Value Reference Range Interpretation Comments WBC (test code = See_Comment H [Automated 6690-2) message] The system which generated this result transmit katina reference range : 4.20 - 10.70 10*3/?L. The reference range was not used to interpret this result as normal/abnormal . RBC (test code = See_Comment L [Automated 789-8) message] The system which generated this result transmit katina reference range : 4.26 - 5.52 10*6/?L. The reference range was not used to interpret this result as normal/abnormal . HGB (test code = 8.1 g/dL 12.2-16.4 L 718-7) HCT (test code = 24.6 % 38.4-49.3 L 4544-3) MCV (test code = 102.1 fL 81.7-95.6 H 787-2) MCH (test code = 33.6 pg 26.1-32.7 H 785-6) MCHC (test code = 32.9 g/dL 31.2-35 786-4) RDW-SD (test code = 55.7 fL 38.5-51.6 H 68536-4) RDW-CV (test code = 14.8 % 12.1-15.4 788-0) PLT (test code = See_Comment [Automated 777-3) message] The system which generated this result transmit katina reference range : 150 - 328 10*3/ ?L. The reference range was not u sed to interpret th is result as normal/abnormal . MPV (test code = 9.5 fL 9.8-13 L 31454-3) NRBC/100 WBC (test See_Comment [Automat ed code = 6391418244) message] The system which generated this result transmit katina reference range : 0.0 - 10.0 /100 WBCs. The reference range was not used to interpret this result as normal/abnormal . NRBC x10^3 (test code See_Comment [Auto mated = 1523966577) message] The system which generated this result transmit katina reference range : 10*3/?L. The reference range was not used to interpret this result as normal/abnormal . GRAN MAT (NEUT) % 83.4 % (test code = 770-8) IMM GRAN % (test code 0.40 % = 5344910491) LYMPH % (test code = 5.2 % 736-9) MONO % (test code = 9.3 % 5905-5) EOS % (test code = 1.1 % 713-8) BASO % (test code = 0.6 % 706-2) GRAN MAT x10^3(ANC) 10.16 10*3/uL 1.99-6.95 H (test code = 0202111279) IMM GRAN x10^3 (test 0.05 10*3/uL 0-0.06 code = 4938829466) LYMPH x10^3 (test code 0.63 10*3/uL 1.09-3.23 L = 731-0) MONO x10^3 (test code 1.13 10*3/uL 0.36-1.02 H = 742-7) EOS x10^3 (test code = 0.14 10*3/uL 0.06-0.53 711-2) BASO x10^3 (test code 0.07 10*3/uL 0.01-0.09 = 704-7) Lab Interpretation Abnormal (test code = 37574-6) [facility]2022-02-28 04:41:49 Test Item Value Reference Range Interpretation Comments APTT Patient (test code = See_Comment [ Automated message] 3173-2) The system whic h generated this result transmitted ref erence range: 26 - 36 Seconds. The re ference range was not u sed to interpret this result as normal/abnor mal. Lab Interpretation (test Normal code = 04959-3) [facility]28 01:21:27 Test Item Value Reference Range Interpretation Comments POCT GLU (test code = 2443401407) 146 mg/dL 70-110 H Lab Interpretation (test code = Abnormal 71655-0) [facility] GLUCOSE (AUTOMATED)2022-02-27 22:06:49 Test Item Value Reference Range Interpretation Comments POCT GLU (test code = 1432332926) 127 mg/dL 70-110 H Lab Interpretation (test code = Abnormal 41240-2) [facility] (for use with Heparin Drip)2022-02-27 21:25:18 Test Item Value Reference Range Interpretation Comments APTT Patient (test code See_Comment H [Au tomated message] = 3173-2) The system [employer] generated this result transmitted ref erence range: 26 - 36 Seconds. The reference range was not used to int erpret this result as normal/abnormal . Lab Interpretation (test Abnormal code = 70967-8) [facility] (for use with Heparin Drip)2022-02-27 20:27:14 Test Item Value Reference Range Interpretation Comments APTT Patient (test code See_Comment HH [Au tomated message] = 3173-2) The system [employer] generated this result transmitted ref erence range: 26 - 36 Seconds. The reference range was not used to int erpret this result as normal/abnormal . Lab Interpretation (test Abnormal code = 73184-0) [facility] GLUCOSE (AUTOMATED)2022-02-27 17:56:59 Test Item Value Reference Range Interpretation Comments POCT GLU (test code = 4686448100) 198 mg/dL 70-110 H Lab Interpretation (test code = Abnormal 92024-6) [facility] GLUCOSE (AUTOMATED)2022-02-27 17:56:59 Test Item Value Reference Range Interpretation Comments POCT GLU (test code = 7752884457) 198 mg/dL 70-110 H Lab Interpretation (test code = Abnormal 89574-2) [facility] GLUCOSE (AUTOMATED)2022-02-27 13:35:12 Test Item Value Reference Range Interpretation Comments POCT GLU (test code = 5566145080) 270 mg/dL 70-110 H Lab Interpretation (test code = Abnormal 01551-5) [facility] GLUCOSE (AUTOMATED)2022-02-27 13:35:12 Test Item Value Reference Range Interpretation Comments POCT GLU (test code = 4684499114) 270 mg/dL 70-110 H Lab Interpretation (test code = Abnormal 68513-5) [facility] (NA, K, CL, CO2, GLUCOSE, BUN, CREATININE, CA)2022-02-27 07:58:50 Test Item Value Reference Range Interpretation Comments NA (test code = 134 mmol/L 135-145 L 1714681294) K (test code = 5.2 mmol/L 3.5-5.0 H 4120879755) CL (test code = 99 mmol/L 98-108 4151269627) CO2 TOTAL (test code = 22 mmol/L 23-31 L 3146349976) AGAP (test code = 2-16 4513728616) BUN (test code = 35 mg/dL 7-23 H 0375240281) GLUCOSE (test code = 142 mg/dL 70-110 H 9851815811) CREATININE (test code = 7.29 mg/dL 0.60-1.25 H 1290619751) CALCIUM (test code = 9.3 mg/dL 8.6-10.6 8696089592) eGFR (test code = mL/min/1.73m2 0130763045) BRIAN (test code = BRIAN) Association of Glomerular Filtration Rate (GFR) and Staging of Kidney Disease* + --+ --+ ------+| GFR (mL/min/1.73 m2) ?| With Kidney Damage ?| ?Without Kidney Damage+ --------+ --------+ +| ?>90 ?| ?Stage one ?| ? Normal ?+ ---+ ---+ -------+| ?60-89 ?| ?Stage two ?| ? Decreased GFR ? + --+ --+ ------+| ?30-59 ?| ?Stage three ?| ? Stage three ? + --+ --+ ------+| ?15-29 ?| ?Stage four ? | ? Stage four ?+ ---+ ---+ -------+| ?<15 (or dialysis) ? ?| ?Stage five ? | ? Stage five ?+ ---+ ---+ -------+ *Each stage assumes the associated GFR level has been in effect for at least three months. ?Stages 1 to 5, with or without kidney disease, indicate chronic kidney disease. Notes: Determination of stages one and two (with eGFR >59mL/min/1.73 m2) requires estimation of kidney damage for at least three months as defined by structural or functional abnormalities of the kidney, manifested by either:Pathological abnormalities or Markers of kidney damage (including abnormalities in the composition of the blood or urine or abnormalities in imaging tests). Lab Interpretation Abnormal (test code = 42362-8) [facility] METABOLIC PANEL (NA, K, CL, CO2, GLUCOSE, BUN, CREATININE, CA)2022-02-27 07:58:50 Test Item Value Reference Range Interpretation Comments NA (test code = 134 mmol/L 135-145 L 2395370930) K (test code = 5.2 mmol/L 3.5-5 H 5295480461) CL (test code = 99 mmol/L 98-108 4689537513) CO2 TOTAL (test code = 22 mmol/L 23-31 L 1387278327) AGAP (test code = 2-16 4074234450) BUN (test code = 35 mg/dL 7-23 H 0769114509) GLUCOSE (test code = 142 mg/dL 70-110 H 3752803650) CREATININE (test code = 7.29 mg/dL 0.6-1.25 H 0262201956) CALCIUM (test code = 9.3 mg/dL 8.6-10.6 4756764908) eGFR (test code = mL/min/1.73m2 5448316293) BRIAN (test code = BRIAN) Association of Glomerular Filtration Rate (GFR) and Staging of Kidney Disease* + --+ --+ ------+| GFR (mL/min/1.73 m2) ?| With Kidney Damage ?| ?Without Kidney Damage+ --------+ --------+ +| ?>90 ?| ?Stage one ?| ? Normal ?+ ---+ ---+ -------+| ?60-89 ?| ?Stage two ?| ? Decreased GFR ? + --+ --+ ------+| ?30-59 ?| ?Stage three ?| ? Stage three ? + --+ --+ ------+| ?15-29 ?| ?Stage four ? | ? Stage four ?+ ---+ ---+ -------+| ?<15 (or dialysis) ? ?| ?Stage five ? | ? Stage five ?+ ---+ ---+ -------+ *Each stage assumes the associated GFR level has been in effect for at least three months. ?Stages 1 to 5, with or without kidney disease, indicate chronic kidney disease. Notes: Determination of stages one and two (with eGFR >59mL/min/1.73 m2) requires estimation of kidney damage for at least three months as defined by structural or functional abnormalities of the kidney, manifested by either:Pathological abnormalities or Markers of kidney damage (including abnormalities in the composition of the blood or urine or abnormalities in imaging tests). Lab Interpretation Abnormal (test code = 89714-3) [facility] (for use with Heparin Drip)2022-02-27 07:55:31 Test Item Value Reference Range Interpretation Comments APTT Patient (test code See_Comment H [Au tomated message] = 3173-2) The system [employer] generated this result transmitted ref erence range: 26 - 36 Seconds. The reference range was not used to int erpret this result as normal/abnormal . Lab Interpretation (test Abnormal code = 60128-3) [facility] (for use with Heparin Drip)2022-02-27 07:55:31 Test Item Value Reference Range Interpretation Comments APTT Patient (test code See_Comment H [Au tomated message] = 3173-2) The system [employer] generated this result transmitted ref erence range: 26 - 36 Seconds. The reference range was not used to int erpret this result as normal/abnormal . Lab Interpretation (test Abnormal code = 90545-0) [facility] WITH [id number] 07:47:48 Test Item Value Reference Range Interpretation Comments WBC (test code = See_Comment H [Automated 1690-2) message] The system which generated this result transmit katina reference range : 4.20 - 10.70 10*3/?L. The reference range was not used to interpret this result as normal/abnormal . RBC (test code = See_Comment L [Automated 789-8) message] The system which generated this result transmit katina reference range : 4.26 - 5.52 10*6/?L. The reference range was not used to interpret this result as normal/abnormal . HGB (test code = 8.5 g/dL 12.2-16.4 L 718-7) HCT (test code = 26.2 % 38.4-49.3 L 4544-3) MCV (test code = 104.0 fL 81.7-95.6 H 787-2) MCH (test code = 33.7 pg 26.1-32.7 H 785-6) MCHC (test code = 32.4 g/dL 31.2-35.0 786-4) RDW-SD (test code = 56.0 fL 38.5-51.6 H 31677-0) RDW-CV (test code = 14.9 % 12.1-15.4 788-0) PLT (test code = See_Comment [Automated 777-3) message] The system which generated this result transmit katina reference range : 150 - 328 10*3/ ?L. The reference range was not u sed to interpret th is result as normal/abnormal . MPV (test code = 9.6 fL 9.8-13.0 L 84282-7) NRBC/100 WBC (test See_Comment [Automat ed code = 9974170169) message] The system which generated this result transmit katina reference range : 0.0 - 10.0 /100 WBCs. The reference range was not used to interpret this result as normal/abnormal . NRBC x10^3 (test code <0.01 See_Comment [Auto mated = 9751385255) message] The system which generated this result transmit katina reference range : 10*3/?L. The reference range was not used to interpret this result as normal/abnormal . GRAN MAT (NEUT) % 88.1 % (test code = 770-8) IMM GRAN % (test code 0.70 % = 5614024375) LYMPH % (test code = 2.1 % 736-9) MONO % (test code = 7.3 % 5905-5) EOS % (test code = 1.4 % 713-8) BASO % (test code = 0.4 % 706-2) GRAN MAT x10^3(ANC) 10.45 10*3/uL 1.99-6.95 H (test code = 1310773270) IMM GRAN x10^3 (test 0.08 10*3/uL 0.00-0.06 H code = 2686560192) LYMPH x10^3 (test code 0.25 10*3/uL 1.09-3.23 L = 731-0) MONO x10^3 (test code 0.86 10*3/uL 0.36-1.02 = 742-7) EOS x10^3 (test code = 0.16 10*3/uL 0.06-0.53 711-2) BASO x10^3 (test code 0.05 10*3/uL 0.01-0.09 = 704-7) Lab Interpretation Abnormal (test code = 23780-1) [facility] WITH [id number] 07:47:48 Test Item Value Reference Range Interpretation Comments WBC (test code = See_Comment H [Automated 6690-2) message] The system which generated this result transmit katina reference range : 4.20 - 10.70 10*3/?L. The reference range was not used to interpret this result as normal/abnormal . RBC (test code = See_Comment L [Automated 789-8) message] The system which generated this result transmit katina reference range : 4.26 - 5.52 10*6/?L. The reference range was not used to interpret this result as normal/abnormal . HGB (test code = 8.5 g/dL 12.2-16.4 L 718-7) HCT (test code = 26.2 % 38.4-49.3 L 4544-3) MCV (test code = 104.0 fL 81.7-95.6 H 787-2) MCH (test code = 33.7 pg 26.1-32.7 H 785-6) MCHC (test code = 32.4 g/dL 31.2-35 786-4) RDW-SD (test code = 56.0 fL 38.5-51.6 H 35585-8) RDW-CV (test code = 14.9 % 12.1-15.4 788-0) PLT (test code = See_Comment [Automated 777-3) message] The system which generated this result transmit katina reference range : 150 - 328 10*3/ ?L. The reference range was not u sed to interpret th is result as normal/abnormal . MPV (test code = 9.6 fL 9.8-13 L 15661-3) NRBC/100 WBC (test See_Comment [Automat ed code = 2253016888) message] The system which generated this result transmit katina reference range : 0.0 - 10.0 /100 WBCs. The reference range was not used to interpret this result as normal/abnormal . NRBC x10^3 (test code See_Comment [Auto mated = 9096766779) message] The system which generated this result transmit katina reference range : 10*3/?L. The reference range was not used to interpret this result as normal/abnormal . GRAN MAT (NEUT) % 88.1 % (test code = 770-8) IMM GRAN % (test code 0.70 % = 6500302651) LYMPH % (test code = 2.1 % 736-9) MONO % (test code = 7.3 % 5905-5) EOS % (test code = 1.4 % 713-8) BASO % (test code = 0.4 % 706-2) GRAN MAT x10^3(ANC) 10.45 10*3/uL 1.99-6.95 H (test code = 3269418780) IMM GRAN x10^3 (test 0.08 10*3/uL 0-0.06 H code = 3131657386) LYMPH x10^3 (test code 0.25 10*3/uL 1.09-3.23 L = 731-0) MONO x10^3 (test code 0.86 10*3/uL 0.36-1.02 = 742-7) EOS x10^3 (test code = 0.16 10*3/uL 0.06-0.53 711-2) BASO x10^3 (test code 0.05 10*3/uL 0.01-0.09 = 704-7) Lab Interpretation Abnormal (test code = 29568-2) [facility] GLUCOSE (AUTOMATED)2022-02-27 00:42:29 Test Item Value Reference Range Interpretation Comments POCT GLU (test code = 4771649136) 99 mg/dL 70-110 Lab Interpretation (test code = Normal 26257-7) [facility] GLUCOSE (AUTOMATED)2022-02-27 00:42:29 Test Item Value Reference Range Interpretation Comments POCT GLU (test code = 1996987840) 99 mg/dL 70-110 Lab Interpretation (test code = Normal 38712-5) [facility] GLUCOSE (AUTOMATED)2022-02-26 17:01:11 Test Item Value Reference Range Interpretation Comments POCT GLU (test code = 0846163389) 90 mg/dL 70-110 Lab Interpretation (test code = Normal 15709-3) [facility] GLUCOSE (AUTOMATED)2022-02-26 17:01:11 Test Item Value Reference Range Interpretation Comments POCT GLU (test code = 3837048380) 90 mg/dL 70-110 Lab Interpretation (test code = Normal 90224-7) [facility] GLUCOSE (AUTOMATED)2022-02-26 15:53:05 Test Item Value Reference Range Interpretation Comments POCT GLU (test code = 6669098305) 70 mg/dL 70-110 Lab Interpretation (test code = Normal 45677-2) [facility] GLUCOSE (AUTOMATED)2022-02-26 15:53:05 Test Item Value Reference Range Interpretation Comments POCT GLU (test code = 2753840878) 70 mg/dL 70-110 Lab Interpretation (test code = Normal 24627-7) [facility] GLUCOSE (AUTOMATED)2022-02-26 11:48:58 Test Item Value Reference Range Interpretation Comments POCT GLU (test code = 9538964729) 122 mg/dL 70-110 H Lab Interpretation (test code = Abnormal 11607-4) [facility] GLUCOSE (AUTOMATED)2022-02-26 11:48:58 Test Item Value Reference Range Interpretation Comments POCT GLU (test code = 2704863106) 122 mg/dL 70-110 H Lab Interpretation (test code = Abnormal 34488-4) [facility] METABOLIC PANEL (NA, K, CL, CO2, GLUCOSE, BUN, CREATININE, CA)2022-02-26 11:20:47 Test Item Value Reference Range Interpretation Comments NA (test code = 131 mmol/L 135-145 L 9652978267) K (test code = 4.8 mmol/L 3.5-5.0 8943349702) CL (test code = 93 mmol/L 98-108 L 0334172814) CO2 TOTAL (test code = 23 mmol/L 23-31 2378373619) AGAP (test code = 2-16 2990082922) BUN (test code = 66 mg/dL 7-23 H 5043902763) GLUCOSE (test code = 49 mg/dL 70-110 LL 5368933558) CREATININE (test code = 11.64 mg/dL 0.60-1.25 H 4550785456) CALCIUM (test code = 9.0 mg/dL 8.6-10.6 3418742769) eGFR (test code = mL/min/1.73m2 7216152133) BRIAN (test code = BRIAN) Association of Glomerular Filtration Rate (GFR) and Staging of Kidney Disease* + --+ --+ ------+| GFR (mL/min/1.73 m2) ?| With Kidney Damage ?| ?Without Kidney Damage+ --------+ --------+ +| ?>90 ?| ?Stage one ?| ? Normal ?+ ---+ ---+ -------+| ?60-89 ?| ?Stage two ?| ? Decreased GFR ? + --+ --+ ------+| ?30-59 ?| ?Stage three ?| ? Stage three ? + --+ --+ ------+| ?15-29 ?| ?Stage four ? | ? Stage four ?+ ---+ ---+ -------+| ?<15 (or dialysis) ? ?| ?Stage five ? | ? Stage five ?+ ---+ ---+ -------+ *Each stage assumes the associated GFR level has been in effect for at least three months. ?Stages 1 to 5, with or without kidney disease, indicate chronic kidney disease. Notes: Determination of stages one and two (with eGFR >59mL/min/1.73 m2) requires estimation of kidney damage for at least three months as defined by structural or functional abnormalities of the kidney, manifested by either:Pathological abnormalities or Markers of kidney damage (including abnormalities in the composition of the blood or urine or abnormalities in imaging tests). Lab Interpretation Abnormal (test code = 94526-9) [facility] METABOLIC PANEL (NA, K, CL, CO2, GLUCOSE, BUN, CREATININE, CA)2022-02-26 11:20:47 Test Item Value Reference Range Interpretation Comments NA (test code = 131 mmol/L 135-145 L 1888986273) K (test code = 4.8 mmol/L 3.5-5 4334971749) CL (test code = 93 mmol/L 98-108 L 3421582604) CO2 TOTAL (test code = 23 mmol/L 23-31 1094941546) AGAP (test code = 2-16 3543074431) BUN (test code = 66 mg/dL 7-23 H 4028540943) GLUCOSE (test code = 49 mg/dL 70-110 LL 0628447519) CREATININE (test code = 11.64 mg/dL 0.6-1.25 H 8220469037) CALCIUM (test code = 9.0 mg/dL 8.6-10.6 7082916749) eGFR (test code = mL/min/1.73m2 2279568107) BRIAN (test code = BRIAN) Association of Glomerular Filtration Rate (GFR) and Staging of Kidney Disease* + --+ --+ ------+| GFR (mL/min/1.73 m2) ?| With Kidney Damage ?| ?Without Kidney Damage+ --------+ --------+ +| ?>90 ?| ?Stage one ?| ? Normal ?+ ---+ ---+ -------+| ?60-89 ?| ?Stage two ?| ? Decreased GFR ? + --+ --+ ------+| ?30-59 ?| ?Stage three ?| ? Stage three ? + --+ --+ ------+| ?15-29 ?| ?Stage four ? | ? Stage four ?+ ---+ ---+ -------+| ?<15 (or dialysis) ? ?| ?Stage five ? | ? Stage five ?+ ---+ ---+ -------+ *Each stage assumes the associated GFR level has been in effect for at least three months. ?Stages 1 to 5, with or without kidney disease, indicate chronic kidney disease. Notes: Determination of stages one and two (with eGFR >59mL/min/1.73 m2) requires estimation of kidney damage for at least three months as defined by structural or functional abnormalities of the kidney, manifested by either:Pathological abnormalities or Markers of kidney damage (including abnormalities in the composition of the blood or urine or abnormalities in imaging tests). Lab Interpretation Abnormal (test code = 97155-8) [facility] Test Item Value Reference Range Interpretation Comments MAGNESIUM (test code = 6540016504) 2.1 mg/dL 1.7-2.4 Lab Interpretation (test code = Normal 22492-1) [facility]:12:48 Test Item Value Reference Range Interpretation Comments PHOSPHORUS (test code = 5312504647) 9.4 mg/dL 2.5-5.0 H Lab Interpretation (test code = Abnormal 00292-5) [facility] Test Item Value Reference Range Interpretation Comments MAGNESIUM (test code = 9967829267) 2.1 mg/dL 1.7-2.4 Lab Interpretation (test code = Normal 94590-3) [facility] 11:12:48 Test Item Value Reference Range Interpretation Comments PHOSPHORUS (test code = 5532740106) 9.4 mg/dL 2.5-5 H Lab Interpretation (test code = Abnormal 77221-9) [facility] GLUCOSE (AUTOMATED)2022-02-26 11:02:32 Test Item Value Reference Range Interpretation Comments POCT GLU (test code = 3959086831) 67 mg/dL 70-110 L Lab Interpretation (test code = Abnormal 20770-0) [facility] GLUCOSE (AUTOMATED)2022-02-26 11:02:32 Test Item Value Reference Range Interpretation Comments POCT GLU (test code = 7790745067) 67 mg/dL 70-110 L Lab Interpretation (test code = Abnormal 82184-4) [facility] WITH [id number] 10:12:38 Test Item Value Reference Range Interpretation Comments WBC (test code = See_Comment H [Automated 6690-2) message] The sy stem which generated this result transmitted reference range : 4.20 - 10.70 10*3/?L. The reference range was not used to interpret this result as normal/abnormal . RBC (test code = See_Comment L [Automated 789-8) message] The sy stem which generated this result transmitted reference range : 4.26 - 5.52 10*6/?L. The reference range was not used to interpret this result as normal/abnormal . HGB (test code = 9.1 g/dL 12.2-16.4 L 718-7) HCT (test code = 28.0 % 38.4-49.3 L 4544-3) MCV (test code = 101.4 fL 81.7-95.6 H 787-2) MCH (test code = 33.0 pg 26.1-32.7 H 785-6) MCHC (test code = 32.5 g/dL 31.2-35.0 786-4) RDW-SD (test code = 55.0 fL 38.5-51.6 H 34393-3) RDW-CV (test code = 14.7 % 12.1-15.4 788-0) PLT (test code = See_Comment [Automated 777-3) message] The sy stem which generated this result transmitted reference range : 150 - 328 10*3/ ?L. The reference r dawood was not used to interpret this result as normal/abnormal . MPV (test code = 9.5 fL 9.8-13.0 L 67127-2) NRBC/100 WBC (test See_Comment [Automat ed code = 6642471618) message] The system which generated this result transmitted reference range : 0.0 - 10.0 /100 WBCs. The refer ence range was not u sed to interpret th is result as normal/abnormal . NRBC x10^3 (test code <0.01 See_Comment [Auto mated = 8131406944) message] The s ystem which generated this result transmitted reference range : 10*3/?L. The reference range was not used to interpret this result as normal/abnormal . GRAN MAT (NEUT) % 82.4 % (test code = 770-8) IMM GRAN % (test code 0.50 % = 2066219034) LYMPH % (test code = 5.7 % 736-9) MONO % (test code = 7.7 % 5905-5) EOS % (test code = 3.2 % 713-8) BASO % (test code = 0.5 % 706-2) GRAN MAT x10^3(ANC) 8.94 10*3/uL 1.99-6.95 H (test code = 2075992677) IMM GRAN x10^3 (test 0.05 10*3/uL 0.00-0.06 code = 0118428650) LYMPH x10^3 (test code 0.62 10*3/uL 1.09-3.23 L = 731-0) MONO x10^3 (test code 0.84 10*3/uL 0.36-1.02 = 742-7) EOS x10^3 (test code = 0.35 10*3/uL 0.06-0.53 711-2) BASO x10^3 (test code 0.05 10*3/uL 0.01-0.09 = 704-7) Lab Interpretation Abnormal (test code = 23445-5) [facility] WITH [id number] 10:12:38 Test Item Value Reference Range Interpretation Comments WBC (test code = See_Comment H [Automated 6690-2) message] The sy stem which generated this result transmitted reference range : 4.20 - 10.70 10*3/?L. The reference range was not used to interpret this result as normal/abnormal . RBC (test code = See_Comment L [Automated 789-8) message] The sy stem which generated this result transmitted reference range : 4.26 - 5.52 10*6/?L. The reference range was not used to interpret this result as normal/abnormal . HGB (test code = 9.1 g/dL 12.2-16.4 L 718-7) HCT (test code = 28.0 % 38.4-49.3 L 4544-3) MCV (test code = 101.4 fL 81.7-95.6 H 787-2) MCH (test code = 33.0 pg 26.1-32.7 H 785-6) MCHC (test code = 32.5 g/dL 31.2-35 786-4) RDW-SD (test code = 55.0 fL 38.5-51.6 H 11414-2) RDW-CV (test code = 14.7 % 12.1-15.4 788-0) PLT (test code = See_Comment [Automated 777-3) message] The sy stem which generated this result transmitted reference range : 150 - 328 10*3/ ?L. The reference r dawood was not used to interpret this result as normal/abnormal . MPV (test code = 9.5 fL 9.8-13 L 34709-0) NRBC/100 WBC (test See_Comment [Automat ed code = 3710062692) message] The system which generated this result transmitted reference range : 0.0 - 10.0 /100 WBCs. The refer ence range was not u sed to interpret th is result as normal/abnormal . NRBC x10^3 (test code See_Comment [Auto mated = 1629217731) message] The s ystem which generated this result transmitted reference range : 10*3/?L. The reference range was not used to interpret this result as normal/abnormal . GRAN MAT (NEUT) % 82.4 % (test code = 770-8) IMM GRAN % (test code 0.50 % = 0834528350) LYMPH % (test code = 5.7 % 736-9) MONO % (test code = 7.7 % 5905-5) EOS % (test code = 3.2 % 713-8) BASO % (test code = 0.5 % 706-2) GRAN MAT x10^3(ANC) 8.94 10*3/uL 1.99-6.95 H (test code = 3482702117) IMM GRAN x10^3 (test 0.05 10*3/uL 0-0.06 code = 5208285207) LYMPH x10^3 (test code 0.62 10*3/uL 1.09-3.23 L = 731-0) MONO x10^3 (test code 0.84 10*3/uL 0.36-1.02 = 742-7) EOS x10^3 (test code = 0.35 10*3/uL 0.06-0.53 711-2) BASO x10^3 (test code 0.05 10*3/uL 0.01-0.09 = 704-7) Lab Interpretation Abnormal (test code = 32135-5) [facility] GLUCOSE (AUTOMATED)2022-02-26 04:08:51 Test Item Value Reference Range Interpretation Comments POCT GLU (test code = 1882846182) 95 mg/dL 70-110 Lab Interpretation (test code = Normal 25868-9) [facility] GLUCOSE (AUTOMATED)2022-02-26 04:08:51 Test Item Value Reference Range Interpretation Comments POCT GLU (test code = 4999709692) 95 mg/dL 70-110 Lab Interpretation (test code = Normal 34616-6) [facility] GLUCOSE (AUTOMATED)2022-02-26 02:46:23 Test Item Value Reference Range Interpretation Comments POCT GLU (test code = 2380687133) 73 mg/dL 70-110 Lab Interpretation (test code = Normal 11765-5) [facility] GLUCOSE (AUTOMATED)2022-02-26 02:46:23 Test Item Value Reference Range Interpretation Comments POCT GLU (test code = 4392063464) 73 mg/dL 70-110 Lab Interpretation (test code = Normal 81462-3) [facility] GLUCOSE (AUTOMATED)2022-02-26 02:12:57 Test Item Value Reference Range Interpretation Comments POCT GLU (test code = 1046531481) 69 mg/dL 70-110 L Lab Interpretation (test code = Abnormal 08410-0) [facility] GLUCOSE (AUTOMATED)2022-02-26 02:12:57 Test Item Value Reference Range Interpretation Comments POCT GLU (test code = 8507834898) 69 mg/dL 70-110 L Lab Interpretation (test code = Abnormal 60388-9) [facility] and Screen - ONCE [id number] 01:31:18 Test Item Value Reference Range Interpretation Comments ABO & RH (test code B POSITIVE Performe d at [facility] = 20) [facility] [address] [place] [address]Bjwj Free: [phone] A No. [id number] IAT (test code = Negative Performed a t [facility] 1185) [facility] [facility] [address] [place] [address] s [id number] Free: [phone] A No. [id number] [facility] Screen - ONCE [id number] 01:31:18 Test Item Value Reference Range Interpretation Comments ABO & RH (test code B POSITIVE Performe d at [facility] = 20) [facility] [facility] [address] [facility] s [id number] Free: [phone] A No. [id number] IAT (test code = Negative Performed a t [facility] 1185) [facility] [employer] [facility] [address] [facility] s [address]Rsoj Free: [phone] A No. [id number] [facility] GLUCOSE (AUTOMATED)2022-02-25 22:34:07 Test Item Value Reference Range Interpretation Comments POCT GLU (test code = 8276528985) 84 mg/dL 70-110 Lab Interpretation (test code = Normal 56221-2) [facility] GLUCOSE (AUTOMATED)2022-02-25 22:34:07 Test Item Value Reference Range Interpretation Comments POCT GLU (test code = 4169936083) 84 mg/dL 70-110 Lab Interpretation (test code = Normal 47801-7) [facility] 22:03:56 Test Item Value Reference Range Interpretation Comments APTT Patient (test code See_Comment H [Au tomated message] = 3173-2) The system [employer] generated this result transmitted ref erence range: 26 - 36 Seconds. The reference range was not used to int erpret this result as normal/abnormal . Lab Interpretation (test Abnormal code = 37830-3) [facility]2022-02-25 22:03:56 Test Item Value Reference Range Interpretation Comments APTT Patient (test code See_Comment H [Au tomated message] = 3173-2) The system [employer] generated this result transmitted ref erence range: 26 - 36 Seconds. The reference range was not used to int erpret this result as normal/abnormal . Lab Interpretation (test Abnormal code = 01439-7) [facility] GLUCOSE (AUTOMATED)2022-02-25 17:48:21 Test Item Value Reference Range Interpretation Comments POCT GLU (test code = 93 mg/dL 70-110 Notifi ed Provider [id number]) Lab Interpretation (test Normal code = 35825-2) [facility] GLUCOSE (AUTOMATED)2022-02-25 17:48:21 Test Item Value Reference Range Interpretation Comments POCT GLU (test code = 93 mg/dL 70-110 Notifi ed Provider [id number]) Lab Interpretation (test Normal code = 21052-0) [facility] GLUCOSE (AUTOMATED)2022-02-25 17:48:21 Test Item Value Reference Range Interpretation Comments POCT GLU (test code = 93 mg/dL 70-110 Notifi ed Provider [id number]) Lab Interpretation (test Normal code = 23466-2) [facility] GLUCOSE (AUTOMATED)2022-02-25 14:05:34 Test Item Value Reference Range Interpretation Comments POCT GLU (test code = 9527996659) 96 mg/dL 70-110 Lab Interpretation (test code = Normal 18458-5) [facility] GLUCOSE (AUTOMATED)2022-02-25 14:05:34 Test Item Value Reference Range Interpretation Comments POCT GLU (test code = 9467262552) 96 mg/dL 70-110 Lab Interpretation (test code = Normal 12520-4) [facility] GLUCOSE (AUTOMATED)2022-02-25 14:05:34 Test Item Value Reference Range Interpretation Comments POCT GLU (test code = 3633823899) 96 mg/dL 70-110 Lab Interpretation (test code = Normal 52042-0) [facility] Metabolic Panel (NA, K, CL, CO2, GLUCOSE, BUN, CREATININE, CA)2022-02-25 09:54:57 Test Item Value Reference Range Interpretation Comments NA (test code = 131 mmol/L 135-145 L 1779756182) K (test code = 4.7 mmol/L 3.5-5.0 7676556840) CL (test code = 95 mmol/L 98-108 L 9517190285) CO2 TOTAL (test code = 24 mmol/L 23-31 9055718908) AGAP (test code = 2-16 9615836311) BUN (test code = 51 mg/dL 7-23 H 4267768844) GLUCOSE (test code = 79 mg/dL 70-110 7340510396) CREATININE (test code = 8.79 mg/dL 0.60-1.25 H 0107340070) CALCIUM (test code = 9.0 mg/dL 8.6-10.6 2720654795) eGFR (test code = mL/min/1.73m2 6101471454) BRIAN (test code = BRIAN) Association of Glomerular Filtration Rate (GFR) and Staging of Kidney Disease* + --+ --+ ------+| GFR (mL/min/1.73 m2) ?| With Kidney Damage ?| ?Without Kidney Damage+ --------+ --------+ +| ?>90 ?| ?Stage one ?| ? Normal ?+ ---+ ---+ -------+| ?60-89 ?| ?Stage two ?| ? Decreased GFR ? + --+ --+ ------+| ?30-59 ?| ?Stage three ?| ? Stage three ? + --+ --+ ------+| ?15-29 ?| ?Stage four ? | ? Stage four ?+ ---+ ---+ -------+| ?<15 (or dialysis) ? ?| ?Stage five ? | ? Stage five ?+ ---+ ---+ -------+ *Each stage assumes the associated GFR level has been in effect for at least three months. ?Stages 1 to 5, with or without kidney disease, indicate chronic kidney disease. Notes: Determination of stages one and two (with eGFR >59mL/min/1.73 m2) requires estimation of kidney damage for at least three months as defined by structural or functional abnormalities of the kidney, manifested by either:Pathological abnormalities or Markers of kidney damage (including abnormalities in the composition of the blood or urine or abnormalities in imaging tests). Lab Interpretation Abnormal (test code = 69173-3) [facility] [id number] 09:54:57 Test Item Value Reference Range Interpretation Comments MAGNESIUM (test code = 8310375124) 2.1 mg/dL 1.7-2.4 Lab Interpretation (test code = Normal 21869-3) [facility] Pkthy1189-54-67 09:54:57 Test Item Value Reference Range Interpretation Comments PHOSPHORUS (test code = 3537827714) 7.5 mg/dL 2.5-5.0 H Lab Interpretation (test code = Abnormal 36954-5) [facility] (NA, K, CL, CO2, GLUCOSE, BUN, CREATININE, CA)2022-02-25 09:54:57 Test Item Value Reference Range Interpretation Comments NA (test code = 131 mmol/L 135-145 L 8558099184) K (test code = 4.7 mmol/L 3.5-5.0 1815808816) CL (test code = 95 mmol/L 98-108 L 9429215801) CO2 TOTAL (test code = 24 mmol/L 23-31 8201397892) AGAP (test code = 2-16 2512553833) BUN (test code = 51 mg/dL 7-23 H 5574119973) GLUCOSE (test code = 79 mg/dL 70-110 8502563022) CREATININE (test code = 8.79 mg/dL 0.60-1.25 H 4807086081) CALCIUM (test code = 9.0 mg/dL 8.6-10.6 5476258853) eGFR (test code = mL/min/1.73m2 6628775737) BRIAN (test code = RBIAN) Association of Glomerular Filtration Rate (GFR) and Staging of Kidney Disease* + --+ --+ ------+| GFR (mL/min/1.73 m2) ?| With Kidney Damage ?| ?Without Kidney Damage+ --------+ --------+ +| ?>90 ?| ?Stage one ?| ? Normal ?+ ---+ ---+ -------+| ?60-89 ?| ?Stage two ?| ? Decreased GFR ? + --+ --+ ------+| ?30-59 ?| ?Stage three ?| ? Stage three ? + --+ --+ ------+| ?15-29 ?| ?Stage four ? | ? Stage four ?+ ---+ ---+ -------+| ?<15 (or dialysis) ? ?| ?Stage five ? | ? Stage five ?+ ---+ ---+ -------+ *Each stage assumes the associated GFR level has been in effect for at least three months. ?Stages 1 to 5, with or without kidney disease, indicate chronic kidney disease. Notes: Determination of stages one and two (with eGFR >59mL/min/1.73 m2) requires estimation of kidney damage for at least three months as defined by structural or functional abnormalities of the kidney, manifested by either:Pathological abnormalities or Markers of kidney damage (including abnormalities in the composition of the blood or urine or abnormalities in imaging tests). Lab Interpretation Abnormal (test code = 93499-7) [facility] Fhzqp5754-34-09 09:54:57 Test Item Value Reference Range Interpretation Comments MAGNESIUM (test code = 7419775332) 2.1 mg/dL 1.7-2.4 Lab Interpretation (test code = Normal 60758-9) [facility] [id number] 09:54:57 Test Item Value Reference Range Interpretation Comments PHOSPHORUS (test code = 5572844781) 7.5 mg/dL 2.5-5.0 H Lab Interpretation (test code = Abnormal 47232-1) [facility] (NA, K, CL, CO2, GLUCOSE, BUN, CREATININE, CA)2022-02-25 09:54:57 Test Item Value Reference Range Interpretation Comments NA (test code = 131 mmol/L 135-145 L 7416302187) K (test code = 4.7 mmol/L 3.5-5 4258587751) CL (test code = 95 mmol/L 98-108 L 7537951787) CO2 TOTAL (test code = 24 mmol/L 23-31 5406905522) AGAP (test code = 2-16 5704305097) BUN (test code = 51 mg/dL 7-23 H 3795583181) GLUCOSE (test code = 79 mg/dL 70-110 4751117430) CREATININE (test code = 8.79 mg/dL 0.6-1.25 H 8255062714) CALCIUM (test code = 9.0 mg/dL 8.6-10.6 4258180950) eGFR (test code = mL/min/1.73m2 1418750143) BRIAN (test code = BRIAN) Association of Glomerular Filtration Rate (GFR) and Staging of Kidney Disease* + --+ --+ ------+| GFR (mL/min/1.73 m2) ?| With Kidney Damage ?| ?Without Kidney Damage+ --------+ --------+ +| ?>90 ?| ?Stage one ?| ? Normal ?+ ---+ ---+ -------+| ?60-89 ?| ?Stage two ?| ? Decreased GFR ? + --+ --+ ------+| ?30-59 ?| ?Stage three ?| ? Stage three ? + --+ --+ ------+| ?15-29 ?| ?Stage four ? | ? Stage four ?+ ---+ ---+ -------+| ?<15 (or dialysis) ? ?| ?Stage five ? | ? Stage five ?+ ---+ ---+ -------+ *Each stage assumes the associated GFR level has been in effect for at least three months. ?Stages 1 to 5, with or without kidney disease, indicate chronic kidney disease. Notes: Determination of stages one and two (with eGFR >59mL/min/1.73 m2) requires estimation of kidney damage for at least three months as defined by structural or functional abnormalities of the kidney, manifested by either:Pathological abnormalities or Markers of kidney damage (including abnormalities in the composition of the blood or urine or abnormalities in imaging tests). Lab Interpretation Abnormal (test code = 57566-6) [facility] Lrbdo9015-89-74 09:54:57 Test Item Value Reference Range Interpretation Comments MAGNESIUM (test code = 2260849868) 2.1 mg/dL 1.7-2.4 Lab Interpretation (test code = Normal 94242-9) [facility] [id number] 09:54:57 Test Item Value Reference Range Interpretation Comments PHOSPHORUS (test code = 9573592253) 7.5 mg/dL 2.5-5 H Lab Interpretation (test code = Abnormal 36625-7) [facility] with Joayirtbyiqa4903-09-26 09:40:11 Test Item Value Reference Range Interpretation Comments WBC (test code = See_Comment [Automated 3389-2) message] The sy stem which generated this result transmitted reference range : 4.20 - 10.70 10*3/?L. The reference range was not used to interpret this result as normal/abnormal . RBC (test code = See_Comment L [Automated 414-3) message] The sy stem which generated this result transmitted reference range : 4.26 - 5.52 10*6/?L. The reference range was not used to interpret this result as normal/abnormal . HGB (test code = 9.3 g/dL 12.2-16.4 L 718-7) HCT (test code = 28.7 % 38.4-49.3 L 4544-3) MCV (test code = 101.8 fL 81.7-95.6 H 787-2) MCH (test code = 33.0 pg 26.1-32.7 H 785-6) MCHC (test code = 32.4 g/dL 31.2-35.0 786-4) RDW-SD (test code = 55.7 fL 38.5-51.6 H 95925-1) RDW-CV (test code = 14.6 % 12.1-15.4 788-0) PLT (test code = See_Comment [Automated 777-3) message] The sy stem which generated this result transmitted reference range : 150 - 328 10*3/ ?L. The reference r dawood was not used to interpret this result as normal/abnormal . MPV (test code = 9.8 fL 9.8-13.0 59162-2) NRBC/100 WBC (test See_Comment [Automat ed code = 0460601379) message] The system which generated this result transmitted reference range : 0.0 - 10.0 /100 WBCs. The refer ence range was not u sed to interpret th is result as normal/abnormal . NRBC x10^3 (test code <0.01 See_Comment [Auto mated = 8043972083) message] The s ystem which generated this result transmitted reference range : 10*3/?L. The reference range was not used to interpret this result as normal/abnormal . GRAN MAT (NEUT) % 69.3 % (test code = 770-8) IMM GRAN % (test code 0.30 % = 0644333981) LYMPH % (test code = 10.7 % 736-9) MONO % (test code = 9.9 % 5905-5) EOS % (test code = 9.2 % 713-8) BASO % (test code = 0.6 % 706-2) GRAN MAT x10^3(ANC) 4.88 10*3/uL 1.99-6.95 (test code = 5145610455) IMM GRAN x10^3 (test <0.03 0.00-0.06 code = 2379928893) LYMPH x10^3 (test code 0.75 10*3/uL 1.09-3.23 L = 731-0) MONO x10^3 (test code 0.70 10*3/uL 0.36-1.02 = 742-7) EOS x10^3 (test code = 0.65 10*3/uL 0.06-0.53 H 711-2) BASO x10^3 (test code 0.04 10*3/uL 0.01-0.09 = 704-7) Lab Interpretation Abnormal (test code = 56171-1) [facility] with Paxvstgcbpdp4816-13-60 09:40:11 Test Item Value Reference Range Interpretation Comments WBC (test code = See_Comment [Automated 6690-2) message] The sy stem which generated this result transmitted reference range : 4.20 - 10.70 10*3/?L. The reference range was not used to interpret this result as normal/abnormal . RBC (test code = See_Comment L [Automated 789-8) message] The sy stem which generated this result transmitted reference range : 4.26 - 5.52 10*6/?L. The reference range was not used to interpret this result as normal/abnormal . HGB (test code = 9.3 g/dL 12.2-16.4 L 718-7) HCT (test code = 28.7 % 38.4-49.3 L 4544-3) MCV (test code = 101.8 fL 81.7-95.6 H 787-2) MCH (test code = 33.0 pg 26.1-32.7 H 785-6) MCHC (test code = 32.4 g/dL 31.2-35.0 786-4) RDW-SD (test code = 55.7 fL 38.5-51.6 H 03840-2) RDW-CV (test code = 14.6 % 12.1-15.4 788-0) PLT (test code = See_Comment [Automated 777-3) message] The sy stem which generated this result transmitted reference range : 150 - 328 10*3/ ?L. The reference r dawood was not used to interpret this result as normal/abnormal . MPV (test code = 9.8 fL 9.8-13.0 72449-8) NRBC/100 WBC (test See_Comment [Automat ed code = 6894458537) message] The system which generated this result transmitted reference range : 0.0 - 10.0 /100 WBCs. The refer ence range was not u sed to interpret th is result as normal/abnormal . NRBC x10^3 (test code <0.01 See_Comment [Auto mated = 2562220928) message] The s ystem which generated this result transmitted reference range : 10*3/?L. The reference range was not used to interpret this result as normal/abnormal . GRAN MAT (NEUT) % 69.3 % (test code = 770-8) IMM GRAN % (test code 0.30 % = 0228777304) LYMPH % (test code = 10.7 % 736-9) MONO % (test code = 9.9 % 5905-5) EOS % (test code = 9.2 % 713-8) BASO % (test code = 0.6 % 706-2) GRAN MAT x10^3(ANC) 4.88 10*3/uL 1.99-6.95 (test code = 1624229141) IMM GRAN x10^3 (test <0.03 0.00-0.06 code = 5319058926) LYMPH x10^3 (test code 0.75 10*3/uL 1.09-3.23 L = 731-0) MONO x10^3 (test code 0.70 10*3/uL 0.36-1.02 = 742-7) EOS x10^3 (test code = 0.65 10*3/uL 0.06-0.53 H 711-2) BASO x10^3 (test code 0.04 10*3/uL 0.01-0.09 = 704-7) Lab Interpretation Abnormal (test code = 18409-1) [facility] with Idwpgmzmtcdv4839-56-29 09:40:11 Test Item Value Reference Range Interpretation Comments WBC (test code = See_Comment [Automated 6690-2) message] The sy stem which generated this result transmitted reference range : 4.20 - 10.70 10*3/?L. The reference range was not used to interpret this result as normal/abnormal . RBC (test code = See_Comment L [Automated 789-8) message] The sy stem which generated this result transmitted reference range : 4.26 - 5.52 10*6/?L. The reference range was not used to interpret this result as normal/abnormal . HGB (test code = 9.3 g/dL 12.2-16.4 L 718-7) HCT (test code = 28.7 % 38.4-49.3 L 4544-3) MCV (test code = 101.8 fL 81.7-95.6 H 787-2) MCH (test code = 33.0 pg 26.1-32.7 H 785-6) MCHC (test code = 32.4 g/dL 31.2-35 786-4) RDW-SD (test code = 55.7 fL 38.5-51.6 H 31116-6) RDW-CV (test code = 14.6 % 12.1-15.4 788-0) PLT (test code = See_Comment [Automated 777-3) message] The sy stem which generated this result transmitted reference range : 150 - 328 10*3/ ?L. The reference r dawood was not used to interpret this result as normal/abnormal . MPV (test code = 9.8 fL 9.8-13 75257-1) NRBC/100 WBC (test See_Comment [Automat ed code = 8656746967) message] The system which generated this result transmitted reference range : 0.0 - 10.0 /100 WBCs. The refer ence range was not u sed to interpret th is result as normal/abnormal . NRBC x10^3 (test code See_Comment [Auto mated = 5214953691) message] The s ystem which generated this result transmitted reference range : 10*3/?L. The reference range was not used to interpret this result as normal/abnormal . GRAN MAT (NEUT) % 69.3 % (test code = 770-8) IMM GRAN % (test code 0.30 % = 5299206949) LYMPH % (test code = 10.7 % 736-9) MONO % (test code = 9.9 % 5905-5) EOS % (test code = 9.2 % 713-8) BASO % (test code = 0.6 % 706-2) GRAN MAT x10^3(ANC) 4.88 10*3/uL 1.99-6.95 (test code = 8676339907) IMM GRAN x10^3 (test 0-0.06 code = 1841322154) LYMPH x10^3 (test code 0.75 10*3/uL 1.09-3.23 L = 731-0) MONO x10^3 (test code 0.70 10*3/uL 0.36-1.02 = 742-7) EOS x10^3 (test code = 0.65 10*3/uL 0.06-0.53 H 711-2) BASO x10^3 (test code 0.04 10*3/uL 0.01-0.09 = 704-7) Lab Interpretation Abnormal (test code = 80940-1) [facility] (for use with Heparin Drip)2022-02-25 09:38:25 Test Item Value Reference Range Interpretation Comments APTT Patient (test code See_Comment H [Au tomated message] = 3173-2) The system [employer] generated this result transmitted ref erence range: 26 - 36 Seconds. The reference range was not used to int erpret this result as normal/abnormal . Lab Interpretation (test Abnormal code = 92436-6) [facility] (for use with Heparin Drip)2022-02-25 09:38:25 Test Item Value Reference Range Interpretation Comments APTT Patient (test code See_Comment H [Au tomated message] = 3173-2) The system [employer] generated this result transmitted ref erence range: 26 - 36 Seconds. The reference range was not used to int erpret this result as normal/abnormal . Lab Interpretation (test Abnormal code = 36363-6) [facility] (for use with Heparin Drip)2022-02-25 09:38:25 Test Item Value Reference Range Interpretation Comments APTT Patient (test code See_Comment H [Au tomated message] = 3173-2) The system [employer] generated this result transmitted ref erence range: 26 - 36 Seconds. The reference range was not used to int erpret this result as normal/abnormal . Lab Interpretation (test Abnormal code = 03603-6) [place] 85312022-07-06 02:17:43 Test Item Value Reference Range Interpretation Comments APTT Patient (test code See_Comment H [Au tomated message] = 3173-2) The system [employer] generated this result transmitted ref erence range: 26 - 36 Seconds. The reference range was not used to int erpret this result as normal/abnormal . Lab Interpretation (test Abnormal code = 31388-7) [place] [id number] 02:17:43 Test Item Value Reference Range Interpretation Comments APTT Patient (test code See_Comment H [Au tomated message] = 3173-2) The system [employer] generated this result transmitted ref erence range: 26 - 36 Seconds. The reference range was not used to int erpret this result as normal/abnormal . Lab Interpretation (test Abnormal code = 69952-0) [place] 85312022-07-06 02:17:43 Test Item Value Reference Range Interpretation Comments APTT Patient (test code See_Comment H [Au tomated message] = 3173-2) The system [employer] generated this result transmitted ref erence range: 26 - 36 Seconds. The reference range was not used to int erpret this result as normal/abnormal . Lab Interpretation (test Abnormal code = 82130-6) [facility] GLUCOSE (AUTOMATED)2022-02-25 01:05:47 Test Item Value Reference Range Interpretation Comments POCT GLU (test code = 7028316134) 216 mg/dL 70-110 H Lab Interpretation (test code = Abnormal 34858-3) [facility] GLUCOSE (AUTOMATED)2022-02-25 01:05:47 Test Item Value Reference Range Interpretation Comments POCT GLU (test code = 3096402012) 216 mg/dL 70-110 H Lab Interpretation (test code = Abnormal 39127-0) [facility] GLUCOSE (AUTOMATED)2022-02-25 01:05:47 Test Item Value Reference Range Interpretation Comments POCT GLU (test code = 5301986756) 216 mg/dL 70-110 H Lab Interpretation (test code = Abnormal 66644-7) [facility] / [id number] 22:25:05 Test Item Value Reference Range Interpretation Comments PROTIME PATIENT (test See_Comment H [Auto mated message] code = 5964-2) The system [employer] generated this result transmitted ref erence range: 10.1 - 1 2.6 Seconds. The reference range was not used to int erpret this result as normal/abnormal . INR (test code = 6301-6) Nor mal INR <1.1; Warfarin Therap eutic range 2.0 to 3. 0 or 2.5 to 3.5, dep ending upon the indica tions. Lab Interpretation (test Abnormal code = 70180-8) [facility] / [id number] 22:25:05 Test Item Value Reference Range Interpretation Comments PROTIME PATIENT (test See_Comment H [Auto mated message] code = 5964-2) The system [employer] generated this result transmitted ref erence range: 10.1 - 1 2.6 Seconds. The reference range was not used to int erpret this result as normal/abnormal . INR (test code = 6301-6) Nor mal INR <1.1; Warfarin Therap eutic range 2.0 to 3. 0 or 2.5 to 3.5, dep ending upon the indica tions. Lab Interpretation (test Abnormal code = 40615-2) [facility] / [id number] 22:25:05 Test Item Value Reference Range Interpretation Comments PROTIME PATIENT (test See_Comment H [Auto mated message] code = 5964-2) The system [employer] generated this result transmitted ref erence range: 10.1 - 1 2.6 Seconds. The reference range was not used to int erpret this result as normal/abnormal . INR (test code = 6301-6) Nor mal INR <1.1; Warfarin Therap eutic range 2.0 to 3. 0 or 2.5 to 3.5, dep ending upon the indica tions. Lab Interpretation (test Abnormal code = 01611-3) [facility] 22:03:02 Test Item Value Reference Range Interpretation Comments POCT GLU (test code = 9831106896) 178 mg/dL 70-110 H Lab Interpretation (test code = Abnormal 47501-2) [facility] GLUCOSE (AUTOMATED)2022-02-24 22:03:02 Test Item Value Reference Range Interpretation Comments POCT GLU (test code = 7036930025) 178 mg/dL 70-110 H Lab Interpretation (test code = Abnormal 42292-2) [facility] GLUCOSE (AUTOMATED)2022-02-24 22:03:02 Test Item Value Reference Range Interpretation Comments POCT GLU (test code = 1623046800) 178 mg/dL 70-110 H Lab Interpretation (test code = Abnormal 22756-9) [facility] [id number] 19:00:03 Test Item Value Reference Range Interpretation Comments K (test code = 4948680658) 3.7 mmol/L 3.5-5.0 Lab Interpretation (test code = Normal 70701-8) [facility] Uayuc9168-00-21 19:00:03 Test Item Value Reference Range Interpretation Comments K (test code = 0684945354) 3.7 mmol/L 3.5-5.0 Lab Interpretation (test code = Normal 67610-0) [facility] Kzwya2691-52-13 19:00:03 Test Item Value Reference Range Interpretation Comments K (test code = 9314202677) 3.7 mmol/L 3.5-5 Lab Interpretation (test code = Normal 89470-0) [facility] GLUCOSE (AUTOMATED)2022-02-24 18:31:17 Test Item Value Reference Range Interpretation Comments POCT GLU (test code = 8879722263) 191 mg/dL 70-110 H Lab Interpretation (test code = Abnormal 11707-8) [facility] GLUCOSE (AUTOMATED)2022-02-24 18:31:17 Test Item Value Reference Range Interpretation Comments POCT GLU (test code = 1239431527) 191 mg/dL 70-110 H Lab Interpretation (test code = Abnormal 35794-7) [facility] GLUCOSE (AUTOMATED)2022-02-24 18:31:17 Test Item Value Reference Range Interpretation Comments POCT GLU (test code = 4478929751) 191 mg/dL 70-110 H Lab Interpretation (test code = Abnormal 71170-1) [facility] Unfractionated Heparin 2022-02-22 01:25:24 Test Item Value Reference Range Interpretation Comments Anti-Xa UFH (test code = <0.04 See_Comment L [A utomated message] 3404-8) The system [employer] generated this result transmitted ref erence range: 0.30 - 0 .70 IU/mL. The refe rence range was not u sed to interpret this result as normal/abnor mal. Lab Interpretation (test Abnormal code = 25866-0) [facility] 01:24:18 Test Item Value Reference Range Interpretation Comments APTT Patient (test code See_Comment H [Au tomated message] = 3173-2) The system [employer] generated this result transmitted ref erence range: 26 - 36 Seconds. The reference range was not used to int erpret this result as normal/abnormal . Lab Interpretation (test Abnormal code = 89959-0) [facility] / [id number] 01:24:18 Test Item Value Reference Range Interpretation Comments PROTIME PATIENT (test See_Comment H [Auto mated message] code = 5964-2) The system [employer] generated this result transmitted ref erence range: 10.1 - 1 2.6 Seconds. The reference range was not used to int erpret this result as normal/abnormal . INR (test code = 6301-6) Nor mal INR <1.1; Warfarin Therap eutic range 2.0 to 3. 0 or 2.5 to 3.5, dep ending upon the indica tions. Lab Interpretation (test Abnormal code = 20857-7) [facility] (10832)2022-02-22 00:07:35 Test Item Value Reference Range Interpretation Comments NA (test code = 137 mmol/L 135-145 7204421084) K (test code = 4.0 mmol/L 3.5-5.0 4704435723) CL (test code = 98 mmol/L 98-108 0696699433) CO2 TOTAL (test code = 24 mmol/L 23-31 4689319334) AGAP (test code = 2-16 2785766534) BUN (test code = 38 mg/dL 7-23 H 0114989367) GLUCOSE (test code = 200 mg/dL 70-110 H 8966051139) CREATININE (test code = 6.85 mg/dL 0.60-1.25 H 7967064434) TOTAL BILI (test code = 0.2 mg/dL 0.1-1.4 4594626477) CALCIUM (test code = 9.1 mg/dL 8.6-10.6 2408527323) T PROTEIN (test code = 7.1 g/dL 6.3-8.2 4180052353) ALBUMIN (test code = 4.3 g/dL 3.5-5.0 0658790890) ALK PHOS (test code = 128 U/L 34-122 H 2199005206) ALTv (test code = 12 U/L 5-50 1742-6) AST(SGOT) (test code = 15 U/L 13-40 3572691309) eGFR (test code = mL/min/1.73m2 0060336767) BRIAN (test code = BRIAN) Association of Glomerular Filtration Rate (GFR) and Staging of Kidney Disease* + --+ --+ ------+| GFR (mL/min/1.73 m2) ?| With Kidney Damage ?| ?Without Kidney Damage+ --------+ --------+ +| ?>90 ?| ?Stage one ?| ? Normal ?+ ---+ ---+ -------+| ?60-89 ?| ?Stage two ?| ? Decreased GFR ? + --+ --+ ------+| ?30-59 ?| ?Stage three ?| ? Stage three ? + --+ --+ ------+| ?15-29 ?| ?Stage four ? | ? Stage four ?+ ---+ ---+ -------+| ?<15 (or dialysis) ? ?| ?Stage five ? | ? Stage five ?+ ---+ ---+ -------+ *Each stage assumes the associated GFR level has been in effect for at least three months. ?Stages 1 to 5, with or without kidney disease, indicate chronic kidney disease. Notes: Determination of stages one and two (with eGFR >59mL/min/1.73 m2) requires estimation of kidney damage for at least three months as defined by structural or functional abnormalities of the kidney, manifested by either:Pathological abnormalities or Markers of kidney damage (including abnormalities in the composition of the blood or urine or abnormalities in imaging tests). Lab Interpretation Abnormal (test code = 61261-4) [facility] [id number] 00:03:55 Test Item Value Reference Range Interpretation Comments APTT Patient (test code See_Comment H [Au tomated message] = 3173-2) The system whic h generated this result transmitted ref erence range: 26 - 36 Seconds. The reference range was not used to int erpret this result as normal/abnormal . Lab Interpretation (test Abnormal code = 08056-1) [facility] / [id number] 00:03:54 Test Item Value Reference Range Interpretation Comments PROTIME PATIENT (test See_Comment H [Auto mated message] code = 5964-2) The system wh ich generated this result transmitted ref erence range: 10.1 - 1 2.6 Seconds. The reference range was not used to int erpret this result as normal/abnormal . INR (test code = 6301-6) Nor mal INR <1.1; Warfarin Therap eutic range 2.0 to 3. 0 or 2.5 to 3.5, dep ending upon the indica tions. Lab Interpretation (test Abnormal code = 75798-5) [facility] HospitalCB WITH [id number] 23:55:32 Test Item Value Reference Range Interpretation Comments WBC (test code = See_Comment [Automated 6690-2) message] The sy stem which generated this result transmitted reference range : 4.20 - 10.70 10*3/?L. The reference range was not used to interpret this result as normal/abnormal . RBC (test code = See_Comment L [Automated 789-8) message] The sy stem which generated this result transmitted reference range : 4.26 - 5.52 10*6/?L. The reference range was not used to interpret this result as normal/abnormal . HGB (test code = 10.6 g/dL 12.2-16.4 L 718-7) HCT (test code = 32.1 % 38.4-49.3 L 4544-3) MCV (test code = 101.9 fL 81.7-95.6 H 787-2) MCH (test code = 33.7 pg 26.1-32.7 H 785-6) MCHC (test code = 33.0 g/dL 31.2-35.0 786-4) RDW-SD (test code = 56.2 fL 38.5-51.6 H 00903-0) RDW-CV (test code = 14.8 % 12.1-15.4 788-0) PLT (test code = See_Comment [Automated 777-3) message] The sy stem which generated this result transmitted reference range : 150 - 328 10*3/ ?L. The reference r dawood was not used to interpret this result as normal/abnormal . MPV (test code = 9.1 fL 9.8-13.0 L 86844-5) NRBC/100 WBC (test See_Comment [Automat ed code = [id number]) message] The system which generated this result transmitted reference range : 0.0 - 10.0 /100 WBCs. The refer ence range was not u sed to interpret th is result as normal/abnormal . NRBC x10^3 (test code <0.01 See_Comment [Auto mated = [id number]) message] The s ystem which generated this result transmitted reference range : 10*3/?L. The reference range was not used to interpret this result as normal/abnormal . GRAN MAT (NEUT) % 74.6 % (test code = 770-8) IMM GRAN % (test code 0.50 % = 8072671577) LYMPH % (test code = 7.2 % 736-9) MONO % (test code = 9.1 % 5905-5) EOS % (test code = 7.5 % 713-8) BASO % (test code = 1.1 % 706-2) GRAN MAT x10^3(ANC) 6.54 10*3/uL 1.99-6.95 (test code = 2493560690) IMM GRAN x10^3 (test 0.04 10*3/uL 0.00-0.06 code = 5964062568) LYMPH x10^3 (test code 0.63 10*3/uL 1.09-3.23 L = 731-0) MONO x10^3 (test code 0.80 10*3/uL 0.36-1.02 = 742-7) EOS x10^3 (test code = 0.66 10*3/uL 0.06-0.53 H 711-2) BASO x10^3 (test code 0.10 10*3/uL 0.01-0.09 H = 704-7) Lab Interpretation Abnormal (test code = 01268-0) [facility] [id number] 08:44:00 Test Item Value Reference Range Interpretation Comments COAGULATION TIME ACTIVATED (test 173 SECistat 74-125 H code = ACT) COAGULATION TIME [id number] 08:44:00 Test Item Value Reference Range Interpretation Comments COAGULATION TIME ACTIVATED (test 165 SECistat 74-125 H code = ACT) COAGULATION TIME [id number] 08:44:00 Test Item Value Reference Range Interpretation Comments COAGULATION TIME ACTIVATED (test 169 SECistat 74-125 H code = ACT) COAGULATION TIME [id number] 08:44:00 Test Item Value Reference Range Interpretation Comments COAGULATION TIME ACTIVATED (test 173 SECistat 74-125 H code = ACT) COAGULATION TIME [id number] 08:44:00 Test Item Value Reference Range Interpretation Comments COAGULATION TIME ACTIVATED (test 169 SECistat 74-125 H code = ACT) COAGULATION TIME [id number] 08:44:00 Test Item Value Reference Range Interpretation Comments COAGULATION TIME ACTIVATED (test 224 SECistat 74-125 H code = ACT) COAGULATION TIME [id number] 08:44:00 Test Item Value Reference Range Interpretation Comments COAGULATION TIME ACTIVATED (test 233 SECistat 74-125 H code = ACT) COAGULATION TIME [id number] 07:09:00 Test Item Value Reference Range Interpretation Comments COAGULATION TIME ACTIVATED (test 147 SECistat 74-125 H code = ACT) CBC W/AUTO [id number] 15:28:00 Test Item Value Reference Range Interpretation [...] DIFF REQUIRED NO DIFF/SCN CRITERIA SLIDE R EVIEW (test code = MDIFF) CONSISTA NT WITH AUTO DIFFERENTI AL. COVID 19 INHOUSE [id number] 14:18:00 Test Item Value Reference Range Interpretation Comments COVID 19 INHOUSE AG NEGATIVE Negative Per [facility] facturer, (test code = negative result s should [id number]) be treated aspr esumptive and, if inconsi stent with clinical signs andsymptoms or necessary for patient man agement, should betested with an alternative mol ecular assay. Negative resultsdo not preclude SA RS-CoV-2 infection and s hould not be usedas the s ole basis for patient man agement decisions. Nega tive results should be considered in t he context of apatient's r ecent exposures, hist ory, presence of cli nicalsigns and symptoms co nsistent with COVID-19. BASIC METABOLIC [id number] 14:07:00 Test Item Value Reference Range Interpretation [...] CA) 8.8 MG/DL 8.5-10.1 N THROMBOPLASTIN TIME [id number] 13:59:00 Test Item Value Reference Range Interpretation Comments THROMBOPLASTIN TIME PARTIAL 36.7 SECONDS 26-35 H (test code = PTT) CHEM [id number] 11:46:00 Test Item Value Reference Range Interpretation Comments Glucose Lvl (test code = Glucose Lvl) 156 70-99 [facility] [employer] [id number] 11:46:00 Test Item Value Reference Range Interpretation Comments BUN (test code = BUN) 51 7-22 [facility] [employer] [id number] 11:46:00 Test Item Value Reference Range Interpretation Comments Creatinine Lvl (test code = Creatinine 8.65 0.50-1.40 Lvl) [facility] [place] 165241-04-21 11:46:00 Test Item Value Reference Range Interpretation Comments Sodium Lvl (test code = Sodium Lvl) 136 135-145 [place] 506731-04-21 11:46:00 Test Item Value Reference Range Interpretation Comments Potassium Lvl (test code = Potassium 4.7 3.5-5.1 Lvl) [place] 506731-04-21 11:46:00 Test Item Value Reference Range Interpretation Comments Chloride Lvl (test code = Chloride Lvl) 101 95-109 [place] 506731-04-21 11:46:00 Test Item Value Reference Range Interpretation Comments CO2 (test code = CO2) 28 24-32 [place] 506731-04-21 11:46:00 Test Item Value Reference Range Interpretation Comments Calcium Lvl (test code = Calcium Lvl) 9.0 8.5-10.5 [place] 506731-04-21 11:46:00 Test Item Value Reference Range Interpretation Comments AGAP (test code = AGAP) 11.7 10.0-20.0 [place] 506731-04-21 11:46:00 Test Item Value Reference Range Interpretation Comments eGFR (test code = eGFR) 6 [place] 323181-04-21 11:46:00 Test Item Value Reference Range Interpretation Comments Segs (test code = Segs) 78.3 45.0-75.0 [place] [address]-04-21 11:46:00 Test Item Value Reference Range Interpretation Comments Lymphocytes (test code = Lymphocytes) 8.5 20.0-40.0 [place] [address]-04-21 11:46:00 Test Item Value Reference Range Interpretation Comments Monocytes (test code = Monocytes) 5.5 2.0-12.0 [place] [address]-04-21 11:46:00 Test Item Value Reference Range Interpretation Comments Eosinophils (test code = 4.7 See_Comment [A utomated message] The Eosinophils) system which ge nerated this result tra nsmitted reference range : <=4.0. The reference r dawood was not used to int erpret this result as normal/abnormal . [place] 323181-04-21 11:46:00 Test Item Value Reference Range Interpretation Comments Basophils (test code = 3.0 See_Comment [Aut omated message] The Basophils) system which ge nerated this result tra nsmitted reference range : <=1.0. The reference r dawood was not used to int erpret this result as normal/abnormal . [facility]aleKhxukfsMWUKZXZDXP9235-71-78 11:46:00 Test Item Value Reference Range Interpretation Comments Neutrophils # (test code = Neutrophils 6.5 1.5-8.1 #) [place] 323181-04-21 11:46:00 Test Item Value Reference Range Interpretation Comments Lymphocytes # (test code = Lymphocytes 0.7 1.0-5.5 #) [place] 323181-04-21 11:46:00 Test Item Value Reference Range Interpretation Comments Monocytes # (test code 0.5 See_Comment [Aut omated message] The = Monocytes #) system which generated this result tra nsmitted reference range : <=0.8. The reference r dawood was not used to int erpret this result as normal/abnormal . [facility]valeIykntnuGNDIWSZQUV2659-97-34 11:46:00 Test Item Value Reference Range Interpretation Comments Eosinophils # (test code 0.4 See_Comment [A utomated message] The = Eosinophils #) system whic h generated this result tra nsmitted reference range : <=0.5. The reference r dawood was not used to int erpret this result as normal/abnormal . [facility] SunnyvaleTkitymmGOACCWKYCS1305-35-77 11:46:00 Test Item Value Reference Range Interpretation Comments Basophils # (test code 0.2 See_Comment [Aut omated message] The = Basophils #) system which generated this result tra nsmitted reference range : <=0.2. The reference r dawood was not used to int erpret this result as normal/abnormal . [facility] SunnyvaleAlgaecgTUCGRPCECP1126-06-10 11:46:00 Test Item Value Reference Range Interpretation Comments WBC (test code = WBC) 8.3 3.7-10.4 [place] 323181-04-21 11:46:00 Test Item Value Reference Range Interpretation Comments RBC (test code = RBC) 3.34 4.70-6.10 [place] 323181-04-21 11:46:00 Test Item Value Reference Range Interpretation Comments Hgb (test code = Hgb) 11.1 14.0-18.0 [facility]QCXHJIFDP3312-[facility]-17 11:46:00 Test Item Value Reference Range Interpretation Comments Hct (test code = Hct) 32.8 42.0-54.0 [facility] HospitalWuyrocxCQAGIWYFRY5513-55-00 11:46:00 Test Item Value Reference Range Interpretation Comments MCV (test code = MCV) 98.3 80.0-94.0 [facility] HospitalBzwolsiYXIIEROBOI0566-96-47 11:46:00 Test Item Value Reference Range Interpretation Comments MCH (test code = MCH) 33.3 pg 27.0-31.0 [facility]ballWfjvzecOTYUACAKMN3606-61-47 11:46:00 Test Item Value Reference Range Interpretation Comments MCHC (test code = MCHC) 33.9 32.0-36.0 [facility] HospitalAcatvgyQZHEBOOBPD6830-05-32 11:46:00 Test Item Value Reference Range Interpretation Comments RDW (test code = RDW) 16.5 11.5-14.5 [facility] HospitalQelqcmkWZHJKDFOUG1328-94-63 11:46:00 Test Item Value Reference Range Interpretation Comments Platelet (test code = Platelet) 134 133-450 [facility] TomballKtkkblqVQFBPTNIAS1327-66-19 11:46:00 Test Item Value Reference Range Interpretation Comments MPV (test code = MPV) 9.2 7.4-10.4 [facility]HstryH[facility] [id number] 00:45:00 Test Item Value Reference Range Interpretation Comments Troponin-I (test code 0.19 See_Comment [Auto mated message] The = Troponin-I) system which g enerated this result transmit katina reference range : <=0.40. The reference r dawood was not used to interpr et this result as kyle l/abnormal. [facility] TomballFkwtdrvOPIKIYNIAG8718-55-37 00:45:00 Test Item Value Reference Range Interpretation Comments Hep Bs Ag (test code Negative *NA*(12/10/20 = Hep Bs Ag) 7:45 PM) [facility] TomballCARAmiare [id number] 23:51:00 Test Item Value Reference Range Interpretation Comments Troponin-I (test code 0.20 See_Comment [Auto mated message] The = Troponin-I) system which g enerated this result transmit katina reference range : <=0.40. The reference r dawood was not used to interpr et this result as kyle l/abnormal. [facility] TomballDcmuaboFFACRMBXIP4387-71-63 23:30:30 Test Item Value Reference Range Interpretation Comments Coronavirus (COVID-19) Not Detected (12/10/20 DURGA (test code = 6:30 PM) Coronavirus (COVID-19) DURGA) [facility] TomballCARDIAC [id number] 15:48:00 Test Item Value Reference Range Interpretation Comments Troponin-I (test code 0.10 See_Comment [Auto mated message] The = Troponin-I) system which g enerated this result transmit katina reference range : <=0.40. The reference r dawood was not used to interpr et this result as kyle l/abnormal. [facility] [employer] [id number] 13:08:00 Test Item Value Reference Range Interpretation Comments Glucose Lvl (test code = Glucose Lvl) 142 70-99 [facility] [id number] 13:08:00 Test Item Value Reference Range Interpretation Comments BUN (test code = BUN) 62 7-22 [facility] [id number] 13:08:00 Test Item Value Reference Range Interpretation Comments Creatinine Lvl (test code = Creatinine 10.00 0.50-1.40 Lvl) [facility] [id number] 13:08:00 Test Item Value Reference Range Interpretation Comments Sodium Lvl (test code = Sodium Lvl) 137 135-145 [facility] [id number] 13:08:00 Test Item Value Reference Range Interpretation Comments Potassium Lvl (test code = Potassium 4.5 3.5-5.1 Lvl) [facility] [id number] 13:08:00 Test Item Value Reference Range Interpretation Comments Chloride Lvl (test code = Chloride Lvl) 100 95-109 [facility] [id number] 13:08:00 Test Item Value Reference Range Interpretation Comments CO2 (test code = CO2) 27 24-32 [facility] [id number] 13:08:00 Test Item Value Reference Range Interpretation Comments Calcium Lvl (test code = Calcium Lvl) 9.3 8.5-10.5 [facility] [id number] 13:08:00 Test Item Value Reference Range Interpretation Comments Total Protein (test code = Total 7.6 6.4-8.4 Protein) [facility]2021-04-20 13:08:00 Test Item Value Reference Range Interpretation Comments Albumin Lvl (test code = Albumin Lvl) 3.7 3.5-5.0 [facility]2021-04-20 13:08:00 Test Item Value Reference Range Interpretation Comments ALT (test code = ALT) 24 See_Comment [Auto mated message] The system which ge nerated this result transmit katina reference range : <=65. The reference range was not used to interpr et this result as kyle l/abnormal. [facility]2021-04-20 13:08:00 Test Item Value Reference Range Interpretation Comments AST (test code = AST) 16 See_Comment [Auto mated message] The system which ge nerated this result transmit katina reference range : <=37. The reference range was not used to interpr et this result as kyle l/abnormal. [place] 506731-04-20 13:08:00 Test Item Value Reference Range Interpretation Comments Alk Phos (test code = Alk Phos) 132 39-136 [facility]2021-04-20 13:08:00 Test Item Value Reference Range Interpretation Comments Bili Total (test code = Bili Total) 0.4 0.2-1.3 [facility]2021-04-20 13:08:00 Test Item Value Reference Range Interpretation Comments AGAP (test code = AGAP) 14.5 10.0-20.0 [facility]2021-04-20 13:08:00 Test Item Value Reference Range Interpretation Comments B/C Ratio (test code = B/C Ratio) 6 1 6-25 [place] 506731-04-20 13:08:00 Test Item Value Reference Range Interpretation Comments Globulin (test code = Globulin) 3.9 2.7-4.2 [facility]2021-04-20 13:08:00 Test Item Value Reference Range Interpretation Comments A/G Ratio (test code = A/G Ratio) 0.9 1 0.7-1.6 [facility]2021-04-20 13:08:00 Test Item Value Reference Range Interpretation Comments eGFR (test code = eGFR) 5 [facility]aleBvuoxybVROZEDFKEG9652-18-69 13:08:00 Test Item Value Reference Range Interpretation Comments WBC (test code = WBC) 8.3 3.7-10.4 [facility]valeKkxsittHBDPTRTSVG2146-01-11 13:08:00 Test Item Value Reference Range Interpretation Comments RBC (test code = RBC) 3.45 4.70-6.10 [facility]valeSbmzfbmUEKMLLGRGB8263-14-06 13:08:00 Test Item Value Reference Range Interpretation Comments Hgb (test code = Hgb) 11.6 14.0-18.0 [facility]valeNccssbrMGGYCRBLQC6972-22-53 13:08:00 Test Item Value Reference Range Interpretation Comments Hct (test code = Hct) 34.0 42.0-54.0 [facility]valeOkivjyfJGOSTNHUWS2685-83-07 13:08:00 Test Item Value Reference Range Interpretation Comments MCV (test code = MCV) 98.7 80.0-94.0 [facility]valeSdzvrxpLDLNLESFBC0989-49-17 13:08:00 Test Item Value Reference Range Interpretation Comments MCH (test code = MCH) 33.7 pg 27.0-31.0 [facility]valeHcwqkjzNRFHPDVCHQ2631-08-79 13:08:00 Test Item Value Reference Range Interpretation Comments MCHC (test code = MCHC) 34.1 32.0-36.0 [facility]valeBqcicruZGIOBTGXDZ2829-42-64 13:08:00 Test Item Value Reference Range Interpretation Comments RDW (test code = RDW) 16.4 11.5-14.5 [facility] SunnyvaleTlfiaawGYKKNAOYIS7247-00-67 13:08:00 Test Item Value Reference Range Interpretation Comments Platelet (test code = Platelet) 131 133-450 [facility]valeAgbzctcYQLEQDHOBT8923-69-36 13:08:00 Test Item Value Reference Range Interpretation Comments MPV (test code = MPV) 8.5 7.4-10.4 [facility] SunnyvaleGxkrsnmKPUOOKCVXZ1341-82-53 13:08:00 Test Item Value Reference Range Interpretation Comments Segs (test code = Segs) 64.6 45.0-75.0 [facility] SunnyvaleKryuzdzRPIQQISQRZ4232-57-23 13:08:00 Test Item Value Reference Range Interpretation Comments Lymphocytes (test code = Lymphocytes) 15.9 20.0-40.0 [facility]valeSkvacmaVQVGXDSDGO9748-72-58 13:08:00 Test Item Value Reference Range Interpretation Comments Monocytes (test code = Monocytes) 6.6 2.0-12.0 [facility]valePwxtmmhVLBREWKSIB4350-71-54 13:08:00 Test Item Value Reference Range Interpretation Comments Eosinophils (test code = 12.0 See_Comment [A utomated message] The Eosinophils) system which ge nerated this result tra nsmitted reference range : <=4.0. The reference r dawood was not used to int erpret this result as normal/abnormal . [place] 323181-04-20 13:08:00 Test Item Value Reference Range Interpretation Comments Basophils (test code = 0.9 See_Comment [Aut omated message] The Basophils) system which ge nerated this result tra nsmitted reference range : <=1.0. The reference r dawood was not used to int erpret this result as normal/abnormal . [place] 323181-04-20 13:08:00 Test Item Value Reference Range Interpretation Comments Neutrophils # (test code = Neutrophils 5.4 1.5-8.1 #) [place] 323181-04-20 13:08:00 Test Item Value Reference Range Interpretation Comments Lymphocytes # (test code = Lymphocytes 1.3 1.0-5.5 #) [facility] SunnyvaleExohkdpDVLIAMPVPJ3551-50-53 13:08:00 Test Item Value Reference Range Interpretation Comments Monocytes # (test code 0.5 See_Comment [Aut omated message] The = Monocytes #) system which generated this result tra nsmitted reference range : <=0.8. The reference r dawood was not used to int erpret this result as normal/abnormal . [facility] SunnyvaleYnmunheYPAHDAQUKE4627-18-28 13:08:00 Test Item Value Reference Range Interpretation Comments Eosinophils # (test code 1.0 See_Comment [A utomated message] The = Eosinophils #) system whic h generated this result tra nsmitted reference range : <=0.5. The reference r dawood was not used to int erpret this result as normal/abnormal . [facility] SunnyvaleIsccicfVEOSAYCTSM0760-78-59 13:08:00 Test Item Value Reference Range Interpretation Comments Basophils # (test code 0.1 See_Comment [Aut omated message] The = Basophils #) system which generated this result tra nsmitted reference range : <=0.2. The reference r dawood was not used to int erpret this result as normal/abnormal . [facility] HEPATITIS B [id number] 06:11:00 Test Item Value Reference Range Interpretation Comments AB HEPATITIS B 330.9 mIU/mL Immunity>9.9 Status of Im munity SURFACE (test code = Anti-HB s Level HBSAB) --- I ncons istent with Imm unity 0.0 - 9.9Consis tent with Immunity > 9.9 AG HEPATITIS B [id number] 06:11:00 Test Item Value Reference Range Interpretation Comments AG HEPATITIS B SURFACE (test code = SCREEN NEGATIVE HBSAG) AB HEPATITIS B [id number] 06:11:00 Test Item Value Reference Range Interpretation Comments AB HEPATITIS B CORE (test code = HBCAB) AB HEPATITIS B [id number] 06:11:00 Test Item Value Reference Range Interpretation Comments AB HEPATITIS B 330.9 mIU/mL Immunity>9.9 Status of Im munity SURFACE (test code = Anti-HB s Level HBSAB) --- I ncons istent with Imm unity 0.0 - 9.9Consis tent with Immunity > 9.9 AG HEPATITIS B [id number] 06:11:00 Test Item Value Reference Range Interpretation Comments AG HEPATITIS B SURFACE (test code = Negative Negative HBSAG) AB HEPATITIS B [id number] 06:11:00 Test Item Value Reference Range Interpretation Comments AB HEPATITIS B CORE (test code = HBCAB) AB HEPATITIS B [id number] 06:11:00 Test Item Value Reference Range Interpretation Comments AB HEPATITIS B 330.9 mIU/mL Immunity>9.9 Status of Im munity SURFACE (test code = Anti-HB s Level HBSAB) --- I ncons istent with Imm unity 0.0 - 9.9Consis tent with Immunity > 9.9 AG HEPATITIS B [id number] 06:11:00 Test Item Value Reference Range Interpretation Comments AG HEPATITIS B SURFACE (test code = Negative Negative HBSAG) AB HEPATITIS B [id number] 06:11:00 Test Item Value Reference Range Interpretation Comments AB HEPATITIS B CORE Negative Negative Performe d At: HD (test code = HBCAB) [facility] [id number] [place], [place] [id number] rosendo Lockwood MD [phone] COMPREHENSIVE METABOLIC [id number] 07:10:00 Test Item Value Reference Range Interpretation [...] 50-136 N code = ALKP) CBC W/AUTO [id number] 06:54:00 Test Item Value Reference Range Interpretation [...] NO DIFF/SCN CRITERIA = MDIFF) GLUCOSE BEDSIDE [id number] 20:01:00 Test Item Value Reference Range Interpretation Comments GLUCOSE BEDSIDE TESTING (test code 165 mg/dL 70-110 H = GLUBED) COMPREHENSIVE METABOLIC [id number] 12:33:00 Test Item Value Reference Range Interpretation [...] 50-136 N code = ALKP) CBC W/AUTO [id number] 12:25:00 Test Item Value Reference Range Interpretation [...] DIFF/SCN CRITERIA = MDIFF) COVID 19 INHOUSE [id number] 12:24:00 Test Item Value Reference Range Interpretation Comments COVID 19 INHOUSE AG NEGATIVE Negative Per manu facturer, (test code = negative result s should [id number]) be treated aspr esumptive and, if inconsi stent with clinical signs andsymptoms or necessary for patient man agement, should betested with an alternative mol ecular assay. Negative resultsdo not preclude SA RS-CoV-2 infection and s hould not be usedas the s ole basis for patient man agement decisions. Nega tive results should be considered in t he context of apatient's r ecent exposures, hist ory, presence of cli nicalsigns and symptoms co nsistent with COVID-19. CHEM [id number] 12:35:00 Test Item Value Reference Range Interpretation Comments eGFR (test code = eGFR) 10 [facility] [id number] 12:35:00 Test Item Value Reference Range Interpretation Comments Calcium Lvl (test code = Calcium Lvl) 8.3 8.5-10.5 [facility] [id number] 12:35:00 Test Item Value Reference Range Interpretation Comments CO2 (test code = CO2) 27 24-32 [facility] [id number] 12:35:00 Test Item Value Reference Range Interpretation Comments Creatinine Lvl (test code = Creatinine 5.91 0.50-1.40 Lvl) [facility] [id number] 12:35:00 Test Item Value Reference Range Interpretation Comments BUN (test code = BUN) 51 7-22 [facility] [id number] 12:35:00 Test Item Value Reference Range Interpretation Comments Glucose Lvl (test code = Glucose Lvl) 156 70-99 [facility] [id number] 12:35:00 Test Item Value Reference Range Interpretation Comments Chloride Lvl (test code = Chloride Lvl) 107 95-109 [facility] [id number] 12:35:00 Test Item Value Reference Range Interpretation Comments Sodium Lvl (test code = Sodium Lvl) 146 135-145 [facility] [id number] 12:35:00 Test Item Value Reference Range Interpretation Comments Potassium Lvl (test code = Potassium 4.2 3.5-5.1 Lvl) [facility] [id number] 12:35:00 Test Item Value Reference Range Interpretation Comments AGAP (test code = AGAP) 16.2 10.0-20.0 [facility]aleEkvasqcXHUAJLQHER3859-36-48 12:35:00 Test Item Value Reference Range Interpretation Comments INR (test code = INR) 1.01 1 0.85-1.17 [facility]aleXerllzmUTFIHXHNTW7766-18-72 12:35:00 Test Item Value Reference Range Interpretation Comments PT (test code = PT) 13.3 s 12.0-14.7 [facility]aleZpawtmvIYTDSTVSGK1758-56-25 12:35:00 Test Item Value Reference Range Interpretation Comments Basophils (test code = 1.2 See_Comment [Aut omated message] The Basophils) system which ge nerated this result tra nsmitted reference range : <=1.0. The reference r dawood was not used to int erpret this result as normal/abnormal . [facility]aleMndndqoZIMOCUKDQV3983-39-75 12:35:00 Test Item Value Reference Range Interpretation Comments Segs-Bands # (test code = Segs-Bands #) 6.3 1.5-8.1 [facility]aleQdtxsknTJKVETIABX9529-66-09 12:35:00 Test Item Value Reference Range Interpretation Comments Lymphocytes # (test code = Lymphocytes 1.3 1.0-5.5 #) [facility]aleYgrltsiUOAXMXGEYM0007-51-22 12:35:00 Test Item Value Reference Range Interpretation Comments Monocytes # (test code 0.8 See_Comment [Aut omated message] The = Monocytes #) system which generated this result tra nsmitted reference range : <=0.8. The reference r dawood was not used to int erpret this result as normal/abnormal . [facility]aleRgjfowhDUGCIDGIUE6755-87-48 12:35:00 Test Item Value Reference Range Interpretation Comments Eosinophils # (test code 0.9 See_Comment [A utomated message] The = Eosinophils #) system whic h generated this result tra nsmitted reference range : <=0.5. The reference r dawood was not used to int erpret this result as normal/abnormal . [facility]aleHbofyucBRAPWOUXRC6928-56-39 12:35:00 Test Item Value Reference Range Interpretation Comments Monocytes (test code = Monocytes) 8.3 2.0-12.0 [facility]aleEgszjdzRIRRBCGMPP1664-74-30 12:35:00 Test Item Value Reference Range Interpretation Comments Eosinophils (test code = 9.6 See_Comment [A utomated message] The Eosinophils) system which ge nerated this result tra nsmitted reference range : <=4.0. The reference r dawood was not used to int erpret this result as normal/abnormal . [facility]aleWueaxahIKCIOBLBGK8723-91-75 12:35:00 Test Item Value Reference Range Interpretation Comments Segs (test code = Segs) 67.1 45.0-75.0 [facility]aleTflpgybOXAAEZIERF7129-64-92 12:35:00 Test Item Value Reference Range Interpretation Comments Lymphocytes (test code = Lymphocytes) 13.8 20.0-40.0 [facility]aleTjcghiqQUEHKETPJZ7404-07-17 12:35:00 Test Item Value Reference Range Interpretation Comments Basophils # (test code 0.1 See_Comment [Aut omated message] The = Basophils #) system which generated this result tra nsmitted reference range : <=0.2. The reference r dawood was not used to int erpret this result as normal/abnormal . [facility]aleSnqzvkkPIXUJDSQJG0947-71-02 12:35:00 Test Item Value Reference Range Interpretation Comments PTT (test code = PTT) 38.2 s 22.9-35.8 [facility]aleLhybykpBWGVMSAOSC1992-24-67 12:35:00 Test Item Value Reference Range Interpretation Comments RBC (test code = RBC) 4.23 4.70-6.10 [facility]aleQbscvcpVVVNYNXNSC2040-65-38 12:35:00 Test Item Value Reference Range Interpretation Comments Hgb (test code = Hgb) 12.7 14.0-18.0 [facility]aleSkzjtljNNHSAGXJCL5506-43-93 12:35:00 Test Item Value Reference Range Interpretation Comments WBC (test code = WBC) 9.4 3.7-10.4 [facility]aleYelbcafZNTGNIXPIA1973-41-27 12:35:00 Test Item Value Reference Range Interpretation Comments RDW (test code = RDW) 18.1 11.5-14.5 [facility]aleVgrxgpvKMDNAHPJQI8570-14-15 12:35:00 Test Item Value Reference Range Interpretation Comments Platelet (test code = Platelet) 184 133-450 [facility]aleBmmpszgDAQTVTCWOF8296-13-92 12:35:00 Test Item Value Reference Range Interpretation Comments MPV (test code = MPV) 8.4 7.4-10.4 [facility]valeUbxjgvlAIXDPORRBZ7488-26-46 12:35:00 Test Item Value Reference Range Interpretation Comments MCH (test code = MCH) 30.0 pg 27.0-31.0 [facility]aleWayzvtzCXDWFSWVMJ3331-09-45 12:35:00 Test Item Value Reference Range Interpretation Comments MCV (test code = MCV) 90.7 80.0-94.0 [facility]aleEevcjoyLVVQVBFCZD7739-83-86 12:35:00 Test Item Value Reference Range Interpretation Comments MCHC (test code = MCHC) 33.0 32.0-36.0 [facility]aleMvsaxldJSGBJYSXAM9484-38-59 12:35:00 Test Item Value Reference Range Interpretation Comments Hct (test code = Hct) 38.3 42.0-54.0 [facility]aleAddpkyqCYEFHVBUJV6291-98-93 17:25:00 Test Item Value Reference Range Interpretation Comments POC Activated Clotting Time (test code 257 s = POC Activated Clotting Time) [facility]aleJhkpykkIQYUIHCHLV2743-56-43 16:10:00 Test Item Value Reference Range Interpretation Comments POC Activated Clotting Time (test code 271 s = POC Activated Clotting Time) [facility]ggjfzRYCMDAVOZKHA0630-96-05 15:38:00 Test Item Value Reference Range Interpretation Comments Chloride Lvl (test code = Chloride Lvl) 109 95-109 [facility] SystemCrxcsaeXNRQCCXKRTGL5963-99-04 15:38:00 Test Item Value Reference Range Interpretation Comments Potassium Lvl (test code = Potassium 3.8 3.5-5.1 Lvl) [facility] SystemZsrejshEYFAIRRHUQIZ4386-17-60 15:38:00 Test Item Value Reference Range Interpretation Comments Sodium Lvl (test code = Sodium Lvl) 145 135-145 [facility] SystemTqjvfvfITPLNPXTIOTB7472-20-41 15:38:00 Test Item Value Reference Range Interpretation Comments eGFR (test code = eGFR) 15 [facility] SystemNwcstcvRGPZQJZBKEML4211-22-03 15:38:00 Test Item Value Reference Range Interpretation Comments Creatinine Lvl (test code = Creatinine 3.96 0.50-1.40 Lvl) [facility] SystemZgfloijKCSJHMIQFQTH8277-16-26 15:38:00 Test Item Value Reference Range Interpretation Comments CO2 (test code = CO2) 30 24-32 [facility] SystemZpqbwqgNHJLDFGSEKFC5487-50-04 15:38:00 Test Item Value Reference Range Interpretation Comments Calcium Lvl (test code = Calcium Lvl) 8.2 8.5-10.5 [facility] SystemWfysxboJPGXLQENXQVN2455-89-00 15:38:00 Test Item Value Reference Range Interpretation Comments BUN (test code = BUN) 32 7-22 [facility] SystemCzjckgoZNTONCDXRSOB7078-30-73 15:38:00 Test Item Value Reference Range Interpretation Comments AGAP (test code = AGAP) 9.8 10.0-20.0 [facility] SystemWrmyopwHQQMUYEYGVCT9608-42-10 15:38:00 Test Item Value Reference Range Interpretation Comments Glucose Lvl (test code = Glucose Lvl) 107 70-99 [facility]aleXdeaemzANDTXXBWZO8416-01-78 15:38:00 Test Item Value Reference Range Interpretation Comments PT (test code = PT) 13.3 s 12.0-14.7 [facility]valeDzacaexDZRICAYWBW4051-95-09 15:38:00 Test Item Value Reference Range Interpretation Comments PTT (test code = PTT) 31.9 s 22.9-35.8 [facility]aleJyustwbMEHCHHALTP6963-66-27 15:38:00 Test Item Value Reference Range Interpretation Comments INR (test code = INR) 1.01 1 0.85-1.17 [facility]aleCqjdcvbZZJRUKGFRX8085-30-32 15:38:00 Test Item Value Reference Range Interpretation Comments RDW (test code = RDW) 17.0 11.5-14.5 [facility]aleHlalxfsQESDPEGICW7644-07-23 15:38:00 Test Item Value Reference Range Interpretation Comments MCHC (test code = MCHC) 33.7 32.0-36.0 [facility]aleLcbpjfcMMXRMSOXEH4280-18-57 15:38:00 Test Item Value Reference Range Interpretation Comments Platelet (test code = Platelet) 189 133-450 [facility]aleKsnzhqlEFGNOXAWGL5124-98-01 15:38:00 Test Item Value Reference Range Interpretation Comments MPV (test code = MPV) 8.3 7.4-10.4 [facility]valeInuzsotWDNFOJEYGD6392-53-20 15:38:00 Test Item Value Reference Range Interpretation Comments MCV (test code = MCV) 86.3 80.0-94.0 [facility]aleJuvpxbfYFABNOHXSH9411-88-77 15:38:00 Test Item Value Reference Range Interpretation Comments MCH (test code = MCH) 29.1 pg 27.0-31.0 [facility]aleJzqovomJWDBNBEUGR2567-04-23 15:38:00 Test Item Value Reference Range Interpretation Comments Hct (test code = Hct) 35.8 42.0-54.0 [facility]valeHszqkmeNLFHZRVJPK0985-82-64 15:38:00 Test Item Value Reference Range Interpretation Comments Hgb (test code = Hgb) 12.1 14.0-18.0 [facility]valeSrkysouKBJOPQWEAI3388-69-18 15:38:00 Test Item Value Reference Range Interpretation Comments WBC (test code = WBC) 7.9 3.7-10.4 [facility]aleXmnkhgdCCQNJRFDUZ4637-14-39 15:38:00 Test Item Value Reference Range Interpretation Comments RBC (test code = RBC) 4.15 4.70-6.10 [facility]aleDvqydfnQCLNHBNMLE2047-63-26 15:38:00 Test Item Value Reference Range Interpretation Comments Segs-Bands # (test code = Segs-Bands #) 4.6 1.5-8.1 [facility]alePymysjtKDYKBEAJKH0629-20-63 15:38:00 Test Item Value Reference Range Interpretation Comments Basophils (test code = 2.3 See_Comment [Aut omated message] The Basophils) system which ge nerated this result tra nsmitted reference range : <=1.0. The reference r dawood was not used to int erpret this result as normal/abnormal . [facility]aleTxluhtvURLBORFWHY2040-89-58 15:38:00 Test Item Value Reference Range Interpretation Comments Lymphocytes # (test code = Lymphocytes 1.0 1.0-5.5 #) [facility]aleEdmxhmyXOHUGJFAAI5728-24-24 15:38:00 Test Item Value Reference Range Interpretation Comments Monocytes # (test code 0.7 See_Comment [Aut omated message] The = Monocytes #) system which generated this result tra nsmitted reference range : <=0.8. The reference r dawood was not used to int erpret this result as normal/abnormal . [facility]aleAejylguIIDLSFNXBY6985-44-09 15:38:00 Test Item Value Reference Range Interpretation Comments Eosinophils # (test code 1.4 See_Comment [A utomated message] The = Eosinophils #) system whic h generated this result tra nsmitted reference range : <=0.5. The reference r dawodo was not used to int erpret this result as normal/abnormal . [facility]ballVuofxdiXSDGXNITXO3262-69-64 15:38:00 Test Item Value Reference Range Interpretation Comments Basophils # (test code 0.2 See_Comment [Aut omated message] The = Basophils #) system which generated this result tra nsmitted reference range : <=0.2. The reference r dawood was not used to int erpret this result as normal/abnormal . [facility]IVFBWPSA1454[facility] 15:38:00 Test Item Value Reference Range Interpretation Comments Lymphocytes (test code = Lymphocytes) 13.1 20.0-40.0 [facility]UbgkixaHTCEZJKZEO1176-14-19 15:38:00 Test Item Value Reference Range Interpretation Comments Monocytes (test code = Monocytes) 9.5 2.0-12.0 [facility] HospitalZiqenqlLSRREZSAVM8428-00-57 15:38:00 Test Item Value Reference Range Interpretation Comments Eosinophils (test code = 17.2 See_Comment [A utomated message] The Eosinophils) system which ge nerated this result tra nsmitted reference range : <=4.0. The reference r dawood was not used to int erpret this result as normal/abnormal . [facility] HospitalYadhjjpAPDZEYQHHF7897-64-75 15:38:00 Test Item Value Reference Range Interpretation Comments Segs (test code = Segs) 57.9 45.0-75.0 [facility]ballPdycimkOZDIYOMJZX5310-08-45 22:18:00 Test Item Value Reference Range Interpretation Comments Hep Bs Ag (test code Negative *NA*(10/20/17 = Hep Bs Ag) 4:18 PM) [facility]hamLgrtutcIOTONSFAXM2209-21-72 22:18:00 Test Item Value Reference Range Interpretation Comments Hep C Ab (test code = Negative *NA*(10/20/17 Hep C Ab) 4:18 PM) [facility]hamZrytmysPYJHHFLXPPTE7344-03-80 20:31:00 Test Item Value Reference Range Interpretation Comments Potassium Lvl (test code = Potassium 4.2 3.5-5.1 Lvl) [facility] MZZFS4524-10-73 18:35:00 Test Item Value Reference Range Interpretation Comments eGFR (test code = eGFR) 12 [facility]CHE[facility] OHXCC3235-71-10 18:35:00 Test Item Value Reference Range Interpretation Comments POC Hemoglobin (test code = POC 10.5 14.0-18.0 Hemoglobin) [facility] [id number] 18:35:00 Test Item Value Reference Range Interpretation Comments POC Ion Ca (test code = POC Ion Ca) 1.19 1.05-1.25 [facility] [id number] 18:35:00 Test Item Value Reference Range Interpretation Comments POC Hematocrit (test code = POC 31.0 42.0-54.0 Hematocrit) [facility] [id number] 18:35:00 Test Item Value Reference Range Interpretation Comments POC AGAP (test code = POC AGAP) 15.0 10.0-20.0 [facility] [id number] 18:35:00 Test Item Value Reference Range Interpretation Comments POC Creatinine (test code = POC 4.8 0.5-1.4 Creatinine) [facility] [id number] 18:35:00 Test Item Value Reference Range Interpretation Comments POC Glucose (test code = POC Glucose) 98 70-99 [facility] [id number] 18:35:00 Test Item Value Reference Range Interpretation Comments POC Sodium (test code = POC Sodium) 144 135-145 [facility] [id number] 18:35:00 Test Item Value Reference Range Interpretation Comments POC Carbon Dioxide (test code = POC 23 24-32 Carbon Dioxide) [facility] [id number] 18:35:00 Test Item Value Reference Range Interpretation Comments POC BUN (test code = POC BUN) 40 7-22 [facility] [id number] 18:35:00 Test Item Value Reference Range Interpretation Comments POC Potassium (test code = POC 4.0 3.5-5.1 Potassium) [facility] [id number] 18:35:00 Test Item Value Reference Range Interpretation Comments POC Chloride (test code = POC Chloride) 110 95-109 [facility] [employer] [id number] 03:59:00 Test Item Value Reference Range Interpretation Comments Antibody Scrn (test Negative (10/19/17 9:59 code = Antibody Scrn) PM) [facility] [employer] [id number] 03:59:00 Test Item Value Reference Range Interpretation Comments ABO/Rh (test code = ABO/Rh) B POS [facility]aleZlxbiejXPWGTKUBOE8889-45-57 02:25:00 Test Item Value Reference Range Interpretation Comments PTT (test code = PTT) 34.7 s 22.9-35.8 [facility]valeWzxulinJNRJVRXZPT8927-68-54 02:25:00 Test Item Value Reference Range Interpretation Comments INR (test code = INR) 1.00 1 0.85-1.17 [facility]aleQnrtijyWFNVUGJXGN4501-83-65 02:25:00 Test Item Value Reference Range Interpretation Comments PT (test code = PT) 13.2 s 12.0-14.7 [facility]2018-02-28 00:43:00 Test Item Value Reference Range Interpretation Comments eGFR (test code = eGFR) 12 [facility]2018-02-28 00:43:00 Test Item Value Reference Range Interpretation Comments Calcium Lvl (test code = Calcium Lvl) 8.5 8.5-10.5 [facility]2018-02-28 00:43:00 Test Item Value Reference Range Interpretation Comments CO2 (test code = CO2) 25 24-32 [facility]2018-02-28 00:43:00 Test Item Value Reference Range Interpretation Comments Chloride Lvl (test code = Chloride Lvl) 109 95-109 [facility]2018-02-28 00:43:00 Test Item Value Reference Range Interpretation Comments Potassium Lvl (test code = Potassium 3.9 3.5-5.1 Lvl) [facility]2018-02-28 00:43:00 Test Item Value Reference Range Interpretation Comments Sodium Lvl (test code = Sodium Lvl) 141 135-145 [facility]2018-02-28 00:43:00 Test Item Value Reference Range Interpretation Comments Creatinine Lvl (test code = Creatinine 5.00 0.50-1.40 Lvl) [facility]2018-02-28 00:43:00 Test Item Value Reference Range Interpretation Comments BUN (test code = BUN) 43 7-22 [facility]2018-02-28 00:43:00 Test Item Value Reference Range Interpretation Comments Glucose Lvl (test code = Glucose Lvl) 106 70-99 [facility]2018-02-28 00:43:00 Test Item Value Reference Range Interpretation Comments AGAP (test code = AGAP) 10.9 10.0-20.0 [facility]aleSivivhqQADOHSNWVF9824-35-96 00:43:00 Test Item Value Reference Range Interpretation Comments Monocytes # (test code 0.9 See_Comment [Aut omated message] The = Monocytes #) system which generated this result tra nsmitted reference range : <=0.8. The reference r dawood was not used to int erpret this result as normal/abnormal . [facility]aleWwtptnpOFRQFQIENC5000-30-75 00:43:00 Test Item Value Reference Range Interpretation Comments Basophils # (test code 0.2 See_Comment [Aut omated message] The = Basophils #) system which generated this result tra nsmitted reference range : <=0.2. The reference r dawood was not used to int erpret this result as normal/abnormal . [facility]valeSzkrunbMWJCSMLMUC8095-45-37 00:43:00 Test Item Value Reference Range Interpretation Comments Eosinophils # (test code 0.9 See_Comment [A utomated message] The = Eosinophils #) system whic h generated this result tra nsmitted reference range : <=0.5. The reference r dawood was not used to int erpret this result as normal/abnormal . [facility]aleCxgcbpiOORKFFIJMF0824-43-52 00:43:00 Test Item Value Reference Range Interpretation Comments Lymphocytes # (test code = Lymphocytes 1.3 1.0-5.5 #) [facility]aleSegkiudDTFWLYBMVN2859-89-77 00:43:00 Test Item Value Reference Range Interpretation Comments Basophils (test code = 2.1 See_Comment [Aut omated message] The Basophils) system which ge nerated this result tra nsmitted reference range : <=1.0. The reference r dawood was not used to int erpret this result as normal/abnormal . [facility]valeTnptmogDOZZMOLLYF4066-06-72 00:43:00 Test Item Value Reference Range Interpretation Comments Segs-Bands # (test code = Segs-Bands #) 7.5 1.5-8.1 [facility]aleMhgipqqIAHPMAFWSP1018-08-21 00:43:00 Test Item Value Reference Range Interpretation Comments Eosinophils (test code = 8.2 See_Comment [A utomated message] The Eosinophils) system which ge nerated this result tra nsmitted reference range : <=4.0. The reference r dawood was not used to int erpret this result as normal/abnormal . [facility]valeGbrpaabLKLEMBUPNC1589-26-79 00:43:00 Test Item Value Reference Range Interpretation Comments Monocytes (test code = Monocytes) 8.2 2.0-12.0 [facility]valeBljvjukTKGEWURSEU6758-08-50 00:43:00 Test Item Value Reference Range Interpretation Comments Lymphocytes (test code = Lymphocytes) 12.0 20.0-40.0 [facility]valePxqhyjgOSZMIAOLKS7006-32-34 00:43:00 Test Item Value Reference Range Interpretation Comments Segs (test code = Segs) 69.5 45.0-75.0 [facility]aleWycdoqdGYPBXRPENG8735-90-05 00:43:00 Test Item Value Reference Range Interpretation Comments MPV (test code = MPV) 8.1 7.4-10.4 [facility]aleEkgybiqTQKJYVCXXJ4023-65-59 00:43:00 Test Item Value Reference Range Interpretation Comments RDW (test code = RDW) 17.8 11.5-14.5 [facility]valeAvtdnixPZIFTCDCQR5731-56-99 00:43:00 Test Item Value Reference Range Interpretation Comments Platelet (test code = Platelet) 219 133-450 [facility]valeYansuvqACALQCYMTJ1692-43-52 00:43:00 Test Item Value Reference Range Interpretation Comments MCHC (test code = MCHC) 32.7 32.0-36.0 [facility]valeLbxcxmrTHWBVZUNFV9409-57-16 00:43:00 Test Item Value Reference Range Interpretation Comments Hgb (test code = Hgb) 11.4 14.0-18.0 [facility]valeJjcnqjcWKQGGHJCUQ6405-49-56 00:43:00 Test Item Value Reference Range Interpretation Comments Hct (test code = Hct) 34.9 42.0-54.0 [facility] [place]thQRTLMOVRYE3958-93-24 00:43:00 Test Item Value Reference Range Interpretation Comments MCV (test code = MCV) 89.1 80.0-94.0 [facility] [place]aleKinjgfcAZVVTVGZPU0309-78-02 00:43:00 Test Item Value Reference Range Interpretation Comments MCH (test code = MCH) 29.2 pg 27.0-31.0 [facility] [place]aleWvcsksyHIOSHSCOZE4332-52-39 00:43:00 Test Item Value Reference Range Interpretation Comments RBC (test code = RBC) 3.92 4.70-6.10 [facility] [place]aleUdptgheNJFVAAVPOI2380-92-26 00:43:00 Test Item Value Reference Range Interpretation Comments WBC (test code = WBC) 10.9 3.7-10.4 [facility] [id number] 08:15:00 Test Item Value Reference Range Interpretation Comments Lactic Acid Lvl (test code = Lactic 0.8 0.5-2.2 Acid Lvl) [facility] BrenhamNdejfmqXUJZSDHUOR8855-71-81 08:00:00 Test Item Value Reference Range Interpretation Comments [facility] HIV 4th GEN (test Negative *NA*(08/11/17 code = [facility] HIV 4th 2:00 AM) GEN) [facility]ballCARDIAC [id number] 22:15:00 Test Item Value Reference Range Interpretation Comments Troponin-I (test code 0.03 See_Comment [Auto mated message] The = Troponin-I) system which g enerated this result transmit katina reference range : <=0.40. The reference r dawood was not used to interpr et this result as kyle l/abnormal. [facility] BrenhamFdvbskyLETZHWITUVTI1962-31-45 22:15:00 Test Item Value Reference Range Interpretation Comments AGAP (test code = AGAP) 18.3 10.0-20.0 [facility] BrenhamOkdwqqgLTJJWZPEJXMU4813-54-89 22:15:00 Test Item Value Reference Range Interpretation Comments B/C Ratio (test code = B/C Ratio) 13 6-25 [facility] BrenhamOpwttghCFCQQDKNXRXB1140-68-08 22:15:00 Test Item Value Reference Range Interpretation Comments A/G Ratio (test code = A/G Ratio) 0.8 0.7-1.6 [facility] BrenhamMtsiygdLUEEVTXWSQQB5129-64-57 22:15:00 Test Item Value Reference Range Interpretation Comments Globulin (test code = Globulin) 3.5 2.7-4.2 [facility] BrenhamFndjhjrRKJHIOJSPBEL3678-71-65 22:15:00 Test Item Value Reference Range Interpretation Comments eGFR (test code = eGFR) 12 [facility] BrenhamTvlvyotVFKHFUBBZDKK1463-35-16 22:15:00 Test Item Value Reference Range Interpretation Comments Creatinine Lvl (test code = Creatinine 4.98 0.50-1.40 Lvl) [facility] BrenhamYonscecIKZMOZLIMXKG0641-16-05 22:15:00 Test Item Value Reference Range Interpretation Comments BUN (test code = BUN) 64 7-22 [facility]DflecaeAZZGPUQFQBPK5764-93-30 22:15:00 Test Item Value Reference Range Interpretation Comments Sodium Lvl (test code = Sodium Lvl) 140 135-145 [facility] SystemRrrobbzDQGSLJOWSDIE5204-17-28 22:15:00 Test Item Value Reference Range Interpretation Comments Glucose Lvl (test code = Glucose Lvl) 140 70-99 [facility] SystemBapsqrhPUHLIDWDFBNC1867-12-33 22:15:00 Test Item Value Reference Range Interpretation Comments Potassium Lvl (test code = Potassium 4.3 3.5-5.1 Lvl) [facility] SystemPpwhfglQTECSCMOMMDS1145-57-86 22:15:00 Test Item Value Reference Range Interpretation Comments Chloride Lvl (test code = Chloride Lvl) 109 95-109 [facility] SystemEvrymqyPQQAZBHKOSIT7777-56-68 22:15:00 Test Item Value Reference Range Interpretation Comments Calcium Lvl (test code = Calcium Lvl) 8.0 8.5-10.5 [facility] SystemMavwppvVPSMYTNYRSNB2751-25-96 22:15:00 Test Item Value Reference Range Interpretation Comments CO2 (test code = CO2) 17 24-32 [facility] SystemWbycnmdZJMATKHCBUIX0578-59-93 22:15:00 Test Item Value Reference Range Interpretation Comments Bili Total (test code = Bili Total) 0.3 0.2-1.3 [facility] SystemZngayznNNKRDDRHTQQK1296-90-53 22:15:00 Test Item Value Reference Range Interpretation Comments Alk Phos (test code = Alk Phos) 75 39-136 [facility] SystemSnqjaxwOYJWPDPAXNYZ9121-45-33 22:15:00 Test Item Value Reference Range Interpretation Comments AST (test code = AST) 16 See_Comment [Auto mated message] The system which ge nerated this result transmit katina reference range : <=37. The reference range was not used to interpr et this result as kyle l/abnormal. [facility] SystemZhrdfenMYRSSTRBCQQD7341-61-52 22:15:00 Test Item Value Reference Range Interpretation Comments ALT (test code = ALT) 27 See_Comment [Auto mated message] The system which ge nerated this result transmit katina reference range : <=65. The reference range was not used to interpr et this result as kyle l/abnormal. [facility] SystemUwhbtrjICCMTVFNPTCT3706-18-53 22:15:00 Test Item Value Reference Range Interpretation Comments Albumin Lvl (test code = Albumin Lvl) 2.8 3.5-5.0 [facility] BrenhamLljbgtjLYYPVGLFLYXV0829-54-31 22:15:00 Test Item Value Reference Range Interpretation Comments Total Protein (test code = Total 6.3 6.4-8.4 Protein) [facility] [place]valeHejwoehLJQDTOAVTJ9856-25-82 22:15:00 Test Item Value Reference Range Interpretation Comments Eosinophils # (test code 0.3 See_Comment [A utomated message] The = Eosinophils #) system whic h generated this result tra nsmitted reference range : <=0.5. The reference r dawood was not used to int erpret this result as normal/abnormal . [facility] [place]valeMckyksvEKASHOHHNI2454-41-13 22:15:00 Test Item Value Reference Range Interpretation Comments Basophils # (test code 0.1 See_Comment [Aut omated message] The = Basophils #) system which generated this result tra nsmitted reference range : <=0.2. The reference r dawood was not used to int erpret this result as normal/abnormal . [facility] [place]valeDzchxpdICWJBFWZFD0091-18-67 22:15:00 Test Item Value Reference Range Interpretation Comments Lymphocytes # (test code = Lymphocytes 0.4 1.0-5.5 #) [facility] [place]valeTiuxvbvDFLZOWKNBO9258-94-05 22:15:00 Test Item Value Reference Range Interpretation Comments Monocytes # (test code 0.9 See_Comment [Aut omated message] The = Monocytes #) system which generated this result tra nsmitted reference range : <=0.8. The reference r dawood was not used to int erpret this result as normal/abnormal . [facility] [place]aleChxfkgbPYMSNKXVZT4555-60-86 22:15:00 Test Item Value Reference Range Interpretation Comments Segs (test code = Segs) 78.3 45.0-75.0 [facility] [place]valeYrptunqVNQVSGCSQE7362-84-23 22:15:00 Test Item Value Reference Range Interpretation Comments Lymphocytes (test code = Lymphocytes) 4.6 20.0-40.0 [facility] [place]valePebgntpXXYLWNHOOM9856-08-77 22:15:00 Test Item Value Reference Range Interpretation Comments Basophils (test code = 1.0 See_Comment [Aut omated message] The Basophils) system which ge nerated this result tra nsmitted reference range : <=1.0. The reference r dawood was not used to int erpret this result as normal/abnormal . [facility] [place]aleXkivkcmDEQFCQGOVP6013-71-91 22:15:00 Test Item Value Reference Range Interpretation Comments Segs-Bands # (test code = Segs-Bands #) 6.0 1.5-8.1 [facility] [place]alePtrqjqdINZKIESVDW1856-73-52 22:15:00 Test Item Value Reference Range Interpretation Comments Eosinophils (test code = 4.3 See_Comment [A utomated message] The Eosinophils) system which ge nerated this result tra nsmitted reference range : <=4.0. The reference r dawood was not used to int erpret this result as normal/abnormal . [facility] [place]valeHdusfmaYVKZTECXCS9481-11-41 22:15:00 Test Item Value Reference Range Interpretation Comments Monocytes (test code = Monocytes) 11.8 2.0-12.0 [facility] [place]valeJasghxtTPTGGSTZRY4963-94-11 22:15:00 Test Item Value Reference Range Interpretation Comments Hct (test code = Hct) 25.2 42.0-54.0 [facility] SunnyvaleVxfluviSPSVLSMNZB3885-53-17 22:15:00 Test Item Value Reference Range Interpretation Comments RBC (test code = RBC) 2.85 4.70-6.10 [facility] SunnyvaleJugtyplVIQAWYALCF6992-24-27 22:15:00 Test Item Value Reference Range Interpretation Comments Hgb (test code = Hgb) 8.4 14.0-18.0 [facility] SunnyvaleObnijjzYLVLIFVYQC6382-39-09 22:15:00 Test Item Value Reference Range Interpretation Comments MCHC (test code = MCHC) 33.4 32.0-36.0 [facility] SunnyvaleBkelfoeIEEMZHGROI0115-64-04 22:15:00 Test Item Value Reference Range Interpretation Comments MCV (test code = MCV) 88.5 80.0-94.0 [facility] SunnyvaleZhwoagzSURZASFMPX3568-14-14 22:15:00 Test Item Value Reference Range Interpretation Comments MCH (test code = MCH) 29.6 pg 27.0-31.0 [facility] SunnyvaleXatlygeYWTHVGIYHB4090-82-77 22:15:00 Test Item Value Reference Range Interpretation Comments RDW (test code = RDW) 14.8 11.5-14.5 [facility] SunnyvaleHsljixqAIQAOPKZNK7946-21-23 22:15:00 Test Item Value Reference Range Interpretation Comments WBC (test code = WBC) 7.6 3.7-10.4 [facility] SunnyvaleTmencoaONEEUYYYVU6889-73-85 22:15:00 Test Item Value Reference Range Interpretation Comments Platelet (test code = Platelet) 142 133-450 [facility] SunnyvaleQmreqnvXMVNHBLFRW2208-68-12 22:15:00 Test Item Value Reference Range Interpretation Comments MPV (test code = MPV) 8.6 7.4-10.4 [facility]2017-11-03 09:17:00 Test Item Value Reference Range Interpretation Comments Ferritin Lvl (test code = Ferritin Lvl) 137 22-275 [facility]2017-11-03 09:17:00 Test Item Value Reference Range Interpretation Comments TIBC (test code = TIBC) 200 228-428 [facility]2017-11-03 09:17:00 Test Item Value Reference Range Interpretation Comments Iron (test code = Iron) 41 45-160 [facility]2017-11-03 09:17:00 Test Item Value Reference Range Interpretation Comments % Satur Fe (test code = % Satur Fe) 20 12-57 [facility]2017-11-03 09:17:00 Test Item Value Reference Range Interpretation Comments UIBC (test code = UIBC) 159 110-370 [facility] [id number] 09:17:00 Test Item Value Reference Range Interpretation Comments Troponin-I (test code 0.03 See_Comment [Auto mated message] The = Troponin-I) system which g enerated this result transmit katina reference range : <=0.40. The reference r dawood was not used to interpr et this result as kyle l/abnormal. [facility] TomballExRo Technologies FUWCELJ8115-81-30 09:17:00 Test Item Value Reference Range Interpretation Comments Total CK (test code = Total CK) 794 12-191 [facility] OGIENJX0504-70-93 09:17:00 Test Item Value Reference Range Interpretation Comments CK-MB INDEX (test 0.8 See_Comment [Automate d message] The code = CK-MB INDEX) system [facility] generated this result transmit katina reference range : <=2.5. The reference range was not used to interpr et this result as kyle l/abnormal. [facility]hamPongo Resume2017-11-03 09:17:00 Test Item Value Reference Range Interpretation Comments CK MB (test code = CK MB) 6.2 0.5-3.6 [facility]ballCHEM QMEKK4818-08-41 09:17:00 Test Item Value Reference Range Interpretation Comments Phosphorus (test code = Phosphorus) 4.1 2.5-4.5 [facility]UqpdbyjPGZWXUKTJBIQ6645-47-99 09:17:00 Test Item Value Reference Range Interpretation Comments AGAP (test code = AGAP) 14.8 10.0-20.0 [facility] SystemJxnzlriWYAWMNNRCWIT4268-53-95 09:17:00 Test Item Value Reference Range Interpretation Comments Calcium Lvl (test code = Calcium Lvl) 8.0 8.5-10.5 [facility] SystemHrhwhizSCMIJJYMHTEC4039-12-70 09:17:00 Test Item Value Reference Range Interpretation Comments Potassium Lvl (test code = Potassium 3.8 3.5-5.1 Lvl) [facility] SystemMqaqvwqOHJWXHBTPOQX9720-97-13 09:17:00 Test Item Value Reference Range Interpretation Comments Chloride Lvl (test code = Chloride Lvl) 111 95-109 [facility] SystemQuwltpxJIFHBJLNXAMU4560-71-33 09:17:00 Test Item Value Reference Range Interpretation Comments CO2 (test code = CO2) 21 24-32 [facility] SystemBhadkkhTTQFFUKJBGIQ1447-77-67 09:17:00 Test Item Value Reference Range Interpretation Comments eGFR (test code = eGFR) 12 [facility] SystemYuprehzNUBYHCQJORBH3289-36-85 09:17:00 Test Item Value Reference Range Interpretation Comments Glucose Lvl (test code = Glucose Lvl) 96 70-99 [facility] SystemCugfisdNIUHXJHBPHQU1536-93-06 09:17:00 Test Item Value Reference Range Interpretation Comments BUN (test code = BUN) 49 7-22 [facility] SystemHkomlrvVHDVCKVXYUHK1385-02-04 09:17:00 Test Item Value Reference Range Interpretation Comments Sodium Lvl (test code = Sodium Lvl) 143 135-145 [facility] SystemSqgmeubYCVBIESPMEMV3982-61-44 09:17:00 Test Item Value Reference Range Interpretation Comments Creatinine Lvl (test code = Creatinine 4.90 0.50-1.40 Lvl) [facility] TomballFmaiilkFUWEBB2692-73-88 09:17:00 Test Item Value Reference Range Interpretation Comments VLDL (test code = VLDL) 20 [facility] CenterVpflbwsDSGPWA0856-09-74 09:17:00 Test Item Value Reference Range Interpretation Comments LDL (Calculated) (test code = LDL 85 (Calculated)) [facility] TomballHsvchykXDCXDH9507-03-13 09:17:00 Test Item Value Reference Range Interpretation Comments HDL (test code = HDL) 34 [facility] TomballSkerindQRDWRI3637-36-28 09:17:00 Test Item Value Reference Range Interpretation Comments Chol (test code = Chol) 139 [facility] BrenhamThbonxlHRLNYD5765-80-74 09:17:00 Test Item Value Reference Range Interpretation Comments Trig (test code = Trig) 98 [facility] TomballXgszgdrJJPRFR7432-28-90 09:17:00 Test Item Value Reference Range Interpretation Comments CHD Risk (test code = CHD Risk) 4.09 4.00-7.30 [facility] CZDAMEGHU0677-74-80 09:17:00 Test Item Value Reference Range Interpretation Comments Hgb A1C (test code = Hgb A1C) 5.4 [facility] AND [id number] 13:57:00 Test Item Value Reference Range Interpretation Comments UA WBC (test code = UA WBC) 0-2 /HPF [facility] AND [id number] 13:57:00 Test Item Value Reference Range Interpretation Comments UA Bacteria (test code = UA Few /HPF Bacteria) [facility] AND [id number] 13:57:00 Test Item Value Reference Range Interpretation Comments UA RBC (test code = 0-2 /HPF See_Comment [Automa katina message] The UA RBC) system which ge nerated this result tra nsmitted reference range : <=2. The reference range was not used to interpr et this result as kyle l/abnormal. [facility] AND [id number] 13:57:00 Test Item Value Reference Range Interpretation Comments UA Blood (test code = Small *ABN*(06/24/17 UA Blood) 8:57 AM) [facility] AND [id number] 13:57:00 Test Item Value Reference Range Interpretation Comments UA Bili (test code = Negative *NA*(06/24/17 UA Bili) 8:57 AM) [facility] AND [id number] 13:57:00 Test Item Value Reference Range Interpretation Comments UA Nitrite (test code Negative (06/24/17 8:57 = UA Nitrite) AM) [facility] AND [id number] 13:57:00 Test Item Value Reference Range Interpretation Comments UA Urobilinogen (test code = UA 0.2 0.1-1.0 Urobilinogen) [facility] AND [id number] 13:57:00 Test Item Value Reference Range Interpretation Comments UA Sq Epi (test code = UA Sq Epi) Few /LPF [facility] AND [id number] 13:57:00 Test Item Value Reference Range Interpretation Comments UA Leuk Est (test Negative (06/24/17 8:57 code = UA Leuk Est) AM) [facility] AND [id number] 13:57:00 Test Item Value Reference Range Interpretation Comments UA Ketones (test code Negative *NA*(06/24/17 = UA Ketones) 8:57 AM) [facility] AND [id number] 13:57:00 Test Item Value Reference Range Interpretation Comments UA Glucose (test code = UA Glucose) 250 mg/dL [facility] AND [id number] 13:57:00 Test Item Value Reference Range Interpretation Comments UA Protein (test code = UA >=300 mg/dL Protein) [facility] AND [id number] 13:57:00 Test Item Value Reference Range Interpretation Comments UA Turbidity (test code = Clear (06/24/17 8:57 UA Turbidity) AM) [facility] AND [id number] 13:57:00 Test Item Value Reference Range Interpretation Comments UA Color (test code = Yellow *NA*(06/24/17 UA Color) 8:57 AM) [facility] AND [id number] 13:57:00 Test Item Value Reference Range Interpretation Comments UA Spec Grav (test code = UA Spec 1.015 1 Grav) [facility] AND [id number] 13:57:00 Test Item Value Reference Range Interpretation Comments UA pH (test code = UA pH) 7.0 1 5.0-8.0 [facility] [id number] 12:31:00 Test Item Value Reference Range Interpretation Comments Troponin-I (test code 0.03 See_Comment [Auto mated message] The = Troponin-I) system which g enerated this result transmit katina reference range : <=0.40. The reference r dawood was not used to interpr et this result as kyle l/abnormal. [facility] [employer] [id number] 12:31:00 Test Item Value Reference Range Interpretation Comments Total CK (test code = Total CK) 1035 12-191 [facility] BrenhamNuxeo RBVFQZQ7069-38-96 12:31:00 Test Item Value Reference Range Interpretation Comments CK MB (test code = CK MB) 9.0 0.5-3.6 [facility] BrenhamPongo Resume2017-11-02 12:31:00 Test Item Value Reference Range Interpretation Comments proBNP (test code = 46526 See_Comment [Automa katina message] The proBNP) system which ge nerated this result tra nsmitted reference range : <=125. The reference r dawood was not used to int erpret this result as kyle l/abnormal. [facility]hamP[facility]2017-11-02 12:31:00 Test Item Value Reference Range Interpretation Comments CK-MB INDEX (test 0.9 See_Comment [Automate d message] The code = CK-MB INDEX) system w [facility] generated this result transmit katina reference range : <=2.5. The reference range was not used to interpr et this result as kyle l/abnormal. [facility] [employer]2017-11-02 12:31:00 Test Item Value Reference Range Interpretation Comments Lipase Lvl (test code = Lipase Lvl) 196 73-393 [facility] [employer]2017-11-02 12:31:00 Test Item Value Reference Range Interpretation Comments eGFR (test code = eGFR) 12 [facility] [employer]2017-11-02 12:31:00 Test Item Value Reference Range Interpretation Comments A/G Ratio (test code = A/G Ratio) 0.8 0.7-1.6 [facility] [employer]2017-11-02 12:31:00 Test Item Value Reference Range Interpretation Comments Globulin (test code = Globulin) 3.6 2.7-4.2 [facility] [employer]2017-11-02 12:31:00 Test Item Value Reference Range Interpretation Comments B/C Ratio (test code = B/C Ratio) 10 6-25 [facility] [employer]2017-11-02 12:31:00 Test Item Value Reference Range Interpretation Comments AGAP (test code = AGAP) 13.1 10.0-20.0 [facility]2017-11-02 12:31:00 Test Item Value Reference Range Interpretation Comments ASPARTATE TRANSAMINASE 21 See_Comment [Aut omated message] (test code = ASPARTATE The s ystem which TRANSAMINASE) generated this result transmitted ref erence range: <=37. Th e reference range was not used to interpr et this result as normal/abnormal . [facility]2017-11-02 12:31:00 Test Item Value Reference Range Interpretation Comments ALANINE AMINOTRANSFERASE 24 See_Comment [A utomated message] (test code = ALANINE The sys tem which AMINOTRANSFERASE) generated this result transmitted ref erence range: <=65. Th e reference range was not used to int erpret this result as normal/abnormal . [facility]2017-11-02 12:31:00 Test Item Value Reference Range Interpretation Comments Albumin Lvl (test code = Albumin Lvl) 3.0 3.5-5.0 [facility]2017-11-02 12:31:00 Test Item Value Reference Range Interpretation Comments Bili Total (test code = Bili Total) 0.3 0.2-1.3 [facility]2017-11-02 12:31:00 Test Item Value Reference Range Interpretation Comments Alk Phos (test code = Alk Phos) 81 39-136 [facility]2017-11-02 12:31:00 Test Item Value Reference Range Interpretation Comments Total Protein (test code = Total 6.6 6.4-8.4 Protein) [facility]2017-11-02 12:31:00 Test Item Value Reference Range Interpretation Comments Calcium Lvl (test code = Calcium Lvl) 8.2 8.5-10.5 [facility]2017-11-02 12:31:00 Test Item Value Reference Range Interpretation Comments CO2 (test code = CO2) 24 24-32 [facility]2017-11-02 12:31:00 Test Item Value Reference Range Interpretation Comments BUN (test code = BUN) 47 7-22 [facility]2017-11-02 12:31:00 Test Item Value Reference Range Interpretation Comments Chloride Lvl (test code = Chloride Lvl) 111 95-109 [facility]2017-11-02 12:31:00 Test Item Value Reference Range Interpretation Comments Potassium Lvl (test code = Potassium 4.1 3.5-5.1 Lvl) [facility]2017-11-02 12:31:00 Test Item Value Reference Range Interpretation Comments Sodium Lvl (test code = Sodium Lvl) 144 135-145 [facility]2017-11-02 12:31:00 Test Item Value Reference Range Interpretation Comments Creatinine Lvl (test code = Creatinine 4.86 0.50-1.40 Lvl) [facility]2017-11-02 12:31:00 Test Item Value Reference Range Interpretation Comments Glucose Lvl (test code = Glucose Lvl) 123 70-99 [facility]valePlnjzylWULBZVFCVM3702-04-27 12:31:00 Test Item Value Reference Range Interpretation Comments INR (test code = INR) 0.91 0.85-1.17 [facility] SunnyvaleTyasbolEYEUMKCZFK5503-94-07 12:31:00 Test Item Value Reference Range Interpretation Comments PROTIME (test code = PROTIME) 12.2 s 12.0-14.7 [facility] SunnyvaleYwisujdYHSVKMPFNW3381-80-98 12:31:00 Test Item Value Reference Range Interpretation Comments aPTT (test code = aPTT) 37.3 s 22.9-35.8 [facility] SunnyvaleIzlgszjRAJAZKMGHD2161-96-69 12:31:00 Test Item Value Reference Range Interpretation Comments Platelet (test code = Platelet) 186 133-450 [facility] SunnyvaleYwoucnuTVINPIGDDV3309-26-89 12:31:00 Test Item Value Reference Range Interpretation Comments MPV (test code = MPV) 9.5 7.4-10.4 [facility] SunnyvaleDyeiwhwWZTCLKWBNG5358-50-34 12:31:00 Test Item Value Reference Range Interpretation Comments RDW (test code = RDW) 14.4 11.5-14.5 [facility] SunnyvaleVwooeteWAPPEATFYK9260-05-11 12:31:00 Test Item Value Reference Range Interpretation Comments Hct (test code = Hct) 29.7 42.0-54.0 [facility] SunnyvaleRummtbjXTXNZONJHI7049-55-18 12:31:00 Test Item Value Reference Range Interpretation Comments MCV (test code = MCV) 89.8 80.0-94.0 [facility]aleAbbjejuKQHDMIFGSB6574-49-14 12:31:00 Test Item Value Reference Range Interpretation Comments Hgb (test code = Hgb) 9.8 14.0-18.0 [facility]aleXidnmbmXNFTQMFMWD8362-35-88 12:31:00 Test Item Value Reference Range Interpretation Comments MCH (test code = MCH) 29.7 pg 27.0-31.0 [facility]aleEiqsdjwWBROFRNAZA9077-31-98 12:31:00 Test Item Value Reference Range Interpretation Comments MCHC (test code = MCHC) 33.1 32.0-36.0 [facility]aleTagzjfsYHTXSGSMBU0543-79-68 12:31:00 Test Item Value Reference Range Interpretation Comments WBC X 10x3 (test code = WBC X 10x3) 9.6 3.7-10.4 [facility]aleLdpguekCQNNFZAZQT9233-60-90 12:31:00 Test Item Value Reference Range Interpretation Comments RBC X 10x6 (test code = RBC X 10x6) 3.31 4.70-6.10 [facility]aleTieqbchNVMKRWNIYA2803-30-35 12:31:00 Test Item Value Reference Range Interpretation Comments Basophils # (test code 0.2 See_Comment [Aut omated message] The = Basophils #) system which generated this result tra nsmitted reference range : <=0.2. The reference r dawood was not used to int erpret this result as normal/abnormal . [facility]valeGumslixLDSZNVPCUB1599-46-12 12:31:00 Test Item Value Reference Range Interpretation Comments Eosinophils # (test code 0.6 See_Comment [A utomated message] The = Eosinophils #) system [facility] generated this result tra nsmitted reference range : <=0.5. The reference r dawood was not used to int erpret this result as normal/abnormal . [facility]valeBlxnrnaYHLLJFWPNP0088-59-93 12:31:00 Test Item Value Reference Range Interpretation Comments Basophils (test code = 2.2 See_Comment [Aut omated message] The Basophils) system which ge nerated this result tra nsmitted reference range : <=1.0. The reference r dawood was not used to int erpret this result as normal/abnormal . [facility]aleAtueukwSSVOQPKIYZ8530-29-06 12:31:00 Test Item Value Reference Range Interpretation Comments Eosinophils (test code = 5.8 See_Comment [A utomated message] The Eosinophils) system which ge nerated this result tra nsmitted reference range : <=4.0. The reference r dawood was not used to int erpret this result as normal/abnormal . [facility]aleVzpodxqOFQCWZLJSQ0035-20-04 12:31:00 Test Item Value Reference Range Interpretation Comments Lymphocytes (test code = Lymphocytes) 9.3 20.0-40.0 [facility]valeSgediesDFUNPGXBQB1294-48-21 12:31:00 Test Item Value Reference Range Interpretation Comments Monocytes (test code = Monocytes) 7.3 2.0-12.0 [facility]aleOizofhiHEQCHLOXNZ5364-01-64 12:31:00 Test Item Value Reference Range Interpretation Comments Segs (test code = Segs) 75.4 45.0-75.0 [facility]aleKhcxslaZZMMUULYLT7495-60-55 12:31:00 Test Item Value Reference Range Interpretation Comments Monocytes # (test code 0.7 See_Comment [Aut omated message] The = Monocytes #) system which generated this result tra nsmitted reference range : <=0.8. The reference r dawood was not used to int erpret this result as normal/abnormal . [facility]aleLsttyzcBFOIYJVEOF3441-36-42 12:31:00 Test Item Value Reference Range Interpretation Comments Lymphocytes # (test code = Lymphocytes 0.9 1.0-5.5 #) [facility]aleAfnplgnVHQFJTKVWB1486-56-73 12:31:00 Test Item Value Reference Range Interpretation Comments Segs-Bands # (test code = Segs-Bands #) 7.2 1.5-8.1 [facility] [email or web address] [id number] 16:10:00 Test Item Value Reference Range Interpretation Comments ABO/Rh (test code = ABO/Rh) B POS [facility]hamUpplication [id number] 16:10:00 Test Item Value Reference Range Interpretation Comments Antibody Scrn (test Negative (06/10/17 code = Antibody Scrn) 11:10 AM) [facility]NywhoxeQUCXGQEEYSHS3506-21-05 16:10:00 Test Item Value Reference Range Interpretation Comments AGAP (test code = AGAP) 13.5 10.0-20.0 [facility] SystemHuiosofMQBNBCFWGHMG7732-62-00 16:10:00 Test Item Value Reference Range Interpretation Comments eGFR (test code = eGFR) 13 [facility] SystemXyweudsOXSIECSCGDQS1954-48-72 16:10:00 Test Item Value Reference Range Interpretation Comments CO2 (test code = CO2) 17 24-32 [facility] SystemFfypyguXNCEDTDEOXKY4605-86-41 16:10:00 Test Item Value Reference Range Interpretation Comments Chloride Lvl (test code = Chloride Lvl) 118 95-109 [facility] SystemMwubtbuQUGITMBYLUYC2207-79-87 16:10:00 Test Item Value Reference Range Interpretation Comments Sodium Lvl (test code = Sodium Lvl) 145 135-145 [facility] SystemOmluhzkWWJGOKBQSRHT6058-59-09 16:10:00 Test Item Value Reference Range Interpretation Comments BUN (test code = BUN) 54 7-22 [facility] SystemRedutnzTIPDKUEHLVXW9454-84-43 16:10:00 Test Item Value Reference Range Interpretation Comments Creatinine Lvl (test code = Creatinine 4.69 0.50-1.40 Lvl) [facility] SystemLjzxwayVFUNEDYBZXSU6142-74-24 16:10:00 Test Item Value Reference Range Interpretation Comments Glucose Lvl (test code = Glucose Lvl) 73 70-99 [facility] SystemOtxlhrqEWYSQORDJNVY3781-62-05 16:10:00 Test Item Value Reference Range Interpretation Comments Calcium Lvl (test code = Calcium Lvl) 7.8 8.5-10.5 [facility] SystemOsksvthCIJGWXSEMCBT8336-00-10 16:10:00 Test Item Value Reference Range Interpretation Comments Potassium Lvl (test code = Potassium 3.5 3.5-5.1 Lvl) [facility]aleHwafgyhZLCHYBBARV7492-67-43 16:10:00 Test Item Value Reference Range Interpretation Comments MPV (test code = MPV) 9.2 7.4-10.4 [facility]aleXxowmcwNGBIBFEBTO8350-35-16 16:10:00 Test Item Value Reference Range Interpretation Comments MCH (test code = MCH) 30.0 pg 27.0-31.0 [facility]valeVnlsnxnLZCWFJTTXC3033-21-61 16:10:00 Test Item Value Reference Range Interpretation Comments MCHC (test code = MCHC) 33.5 32.0-36.0 [facility]valeNzkqtibVOHCVOBLTG1904-36-73 16:10:00 Test Item Value Reference Range Interpretation Comments Hgb (test code = Hgb) 10.2 14.0-18.0 [facility]valeNhdnygrUAPNBSDXCI9084-49-96 16:10:00 Test Item Value Reference Range Interpretation Comments RDW (test code = RDW) 14.8 11.5-14.5 [facility]valeMhmbtckFICAJDSYWO0832-45-60 16:10:00 Test Item Value Reference Range Interpretation Comments Platelet (test code = Platelet) 175 133-450 [facility]valeAfwxswsYBEJMMBDOD4213-76-17 16:10:00 Test Item Value Reference Range Interpretation Comments RBC (test code = RBC) 3.39 4.70-6.10 [facility]valeZudjjexWEGWSCSKNH8528-97-01 16:10:00 Test Item Value Reference Range Interpretation Comments WBC (test code = WBC) 7.9 3.7-10.4 [facility]valePgfxvlqYFJPGQSVPW2922-59-00 16:10:00 Test Item Value Reference Range Interpretation Comments Hct (test code = Hct) 30.4 42.0-54.0 [facility]valeXhuqokvEWADAMWNDD3757-85-15 16:10:00 Test Item Value Reference Range Interpretation Comments MCV (test code = MCV) 89.6 80.0-94.0 [facility]valeTnzhkbwLSLASUDGCS1661-81-58 16:10:00 Test Item Value Reference Range Interpretation Comments Segs-Bands # (test code = Segs-Bands #) 5.6 1.5-8.1 [facility]valeRcuakskKRPBYOARYM5322-95-61 16:10:00 Test Item Value Reference Range Interpretation Comments Basophils # (test code 0.1 See_Comment [Aut omated message] The = Basophils #) system which generated this result tra nsmitted reference range : <=0.2. The reference r dawood was not used to int erpret this result as normal/abnormal . [facility]valeVuvygjuTLPZWSOMGZ2103-85-47 16:10:00 Test Item Value Reference Range Interpretation Comments Lymphocytes # (test code = Lymphocytes 0.9 1.0-5.5 #) [facility]valeWlzqeoqRBZENQBBMP9496-33-35 16:10:00 Test Item Value Reference Range Interpretation Comments Eosinophils # (test code 0.6 See_Comment [A utomated message] The = Eosinophils #) system whic h generated this result tra nsmitted reference range : <=0.5. The reference r dawood was not used to int erpret this result as normal/abnormal . [facility]aleIpbkcpxZGMOFJPSGS6583-02-53 16:10:00 Test Item Value Reference Range Interpretation Comments Basophils (test code = 1.4 See_Comment [Aut omated message] The Basophils) system which ge nerated this result tra nsmitted reference range : <=1.0. The reference r dawood was not used to int erpret this result as normal/abnormal . [facility]aleVxsqgmlJNIQOEUQPZ6347-01-54 16:10:00 Test Item Value Reference Range Interpretation Comments Eosinophils (test code = 7.7 See_Comment [A utomated message] The Eosinophils) system which ge nerated this result tra nsmitted reference range : <=4.0. The reference r dawood was not used to int erpret this result as normal/abnormal . [facility]valeRsrkcowOEKOJFWPEO6031-25-14 16:10:00 Test Item Value Reference Range Interpretation Comments Monocytes # (test code 0.6 See_Comment [Aut omated message] The = Monocytes #) system which generated this result tra nsmitted reference range : <=0.8. The reference r dawood was not used to int erpret this result as normal/abnormal . [facility]aleXbwduzdJUDNFEBSDA2479-47-26 16:10:00 Test Item Value Reference Range Interpretation Comments Segs (test code = Segs) 71.6 45.0-75.0 [facility]valeFdcemowAQSLGWKLHR8538-70-03 16:10:00 Test Item Value Reference Range Interpretation Comments Monocytes (test code = Monocytes) 7.5 2.0-12.0 [facility]valeOgrjerfXHUXEANXKJ2089-80-08 16:10:00 Test Item Value Reference Range Interpretation Comments Lymphocytes (test code = Lymphocytes) 11.8 20.0-40.0 [facility] Send [id number] 09:36:00 Test Item Value Reference Range Interpretation Comments Performing Site (test See [facility] Report code = SITE) Test Ordered (test B-Type Natriuretic code = TESTORD) Peptide CHEM [id number] 03:25:00 Test Item Value Reference Range Interpretation Comments Bili Indirect (test no gt See_Comment [Automa katina message] The code = Bili Indirect) system which generated this result tra nsmitted reference range : <=1.0. The reference r dawood was not used to int erpret this result as normal/abnormal . [facility] TomballCHEM [id number] 03:25:00 Test Item Value Reference Range Interpretation Comments Bili Total (test code = Bili Total) 0.1 0.2-1.3 [facility] TomballWebstep [id number] 03:25:00 Test Item Value Reference Range Interpretation Comments Bili Direct (test code no gt See_Comment [Aut omated message] The = Bili Direct) system which generated this result tra nsmitted reference range : <=0.3. The reference r dawood was not used to int erpret this result as kyle l/abnormal. [facility] TomballWebstep [id number] 03:25:00 Test Item Value Reference Range Interpretation Comments ALANINE AMINOTRANSFERASE 50 See_Comment [A utomated message] (test code = ALANINE The sys tem which AMINOTRANSFERASE) generated this result transmitted ref erence range: <=65. Th e reference range was not used to int erpret this result as normal/abnormal . [facility] TomballWebstep [id number] 03:25:00 Test Item Value Reference Range Interpretation Comments ASPARTATE TRANSAMINASE 41 See_Comment [Aut omated message] (test code = ASPARTATE The s ystem which TRANSAMINASE) generated this result transmitted ref erence range: <=37. Th e reference range was not used to interpr et this result as normal/abnormal . [facility] TomballWebstep [id number] 03:25:00 Test Item Value Reference Range Interpretation Comments A/G Ratio (test code = A/G Ratio) 0.4 0.7-1.6 [facility] TomballWebstep [id number] 03:25:00 Test Item Value Reference Range Interpretation Comments Alk Phos (test code = Alk Phos) 129 39-136 [facility]ballWeb[facility] [id number] 03:25:00 Test Item Value Reference Range Interpretation Comments Globulin (test code = Globulin) 5.0 2.7-4.2 [facility]ballWeb[facility] [id number] 03:25:00 Test Item Value Reference Range Interpretation Comments Total Protein (test code = Total 7.0 6.4-8.4 Protein) [facility]ballWeb[facility] [id number] 03:25:00 Test Item Value Reference Range Interpretation Comments Albumin Lvl (test code = Albumin Lvl) 2.0 3.5-5.0 [facility] BrenhamLoddepmKQWSYURAAZGZ9500-28-93 03:25:00 Test Item Value Reference Range Interpretation Comments Chloride Lvl (test code = Chloride Lvl) 112 95-109 [facility] SystemDmxbhhnNTSXZTAVGEVH1491-52-89 03:25:00 Test Item Value Reference Range Interpretation Comments Creatinine Lvl (test code = Creatinine 4.2 0.5-1.4 Lvl) [facility]LbdelhoJXAACTSPUWIP1573-79-11 03:25:00 Test Item Value Reference Range Interpretation Comments Potassium Lvl (test code = Potassium 3.5 3.5-5.1 Lvl) [facility] SystemTubberuUNNPLUTRVOHJ4152-97-88 03:25:00 Test Item Value Reference Range Interpretation Comments Sodium Lvl (test code = Sodium Lvl) 143 135-145 [facility] SystemRaqwgmsXEPTUUMBWHUX6887-47-01 03:25:00 Test Item Value Reference Range Interpretation Comments CO2 (test code = CO2) 17 24-32 [facility] SystemBawbwceQQXABKBUNKAC8355-70-63 03:25:00 Test Item Value Reference Range Interpretation Comments Hct (test code = Hct) SEE CBC 42.0-54.0 [facility] SystemAdtpkbqFDZLCKHKJHAL2653-22-83 03:25:00 Test Item Value Reference Range Interpretation Comments Ca Ion WB (test code = Ca Ion WB) 1.14 1.05-1.25 [facility] CenterKwodpokIFUXPSWSTHPK7836-69-44 03:25:00 Test Item Value Reference Range Interpretation Comments AGAP (test code = AGAP) 18.0 10.0-20.0 [facility] CenterLxcrfxoPBXPRJSDXUSR8852-00-05 03:25:00 Test Item Value Reference Range Interpretation Comments Hgb (test code = Hgb) SEE CBC 14.0-18.0 [facility] SystemGozbbeoJBSHWKTHJRBZ0968-11-86 03:25:00 Test Item Value Reference Range Interpretation Comments eGFR (test code = eGFR) SEE NOTE [facility] SystemNtfeadiFBDKNSMJXSCA4126-79-21 03:25:00 Test Item Value Reference Range Interpretation Comments BUN (test code = BUN) 41 7-22 [facility] CenterJttzbwdWCUSDLGTXELL2407-89-46 03:25:00 Test Item Value Reference Range Interpretation Comments Glucose Lvl (test code = Glucose Lvl) 94 70-99 [facility] TomballCARAmiareAC [id number] 03:17:00 Test Item Value Reference Range Interpretation Comments Total CK (test code = Total CK) 1543 12-191 [facility] TomballCARAmiareAC PMZEVDR6087-42-88 03:17:00 Test Item Value Reference Range Interpretation Comments CK MB (test code = CK MB) 7.6 0.5-3.6 [facility] TomballCARDIAC [id number] 03:17:00 Test Item Value Reference Range Interpretation Comments Troponin-I (test code 0.04 See_Comment [Auto mated message] The = Troponin-I) system which g enerated this result transmit katina reference range : <=0.40. The reference r dawood was not used to interpr et this result as kyle l/abnormal. [facility] TomballExRo Technologies GNPWDKY6885-60-18 03:17:00 Test Item Value Reference Range Interpretation Comments CK MB Index (test 0.5 See_Comment [Automate d message] The code = CK MB Index) system [facility] generated this result transmit katina reference range : <=2.5. The reference range was not used to interpr et this result as kyle l/abnormal. [facility] TomballKzlagpaBDZSJBFQAB6298-95-85 03:17:00 Test Item Value Reference Range Interpretation Comments WBC X 10x3 (test code = WBC X 10x3) 11.6 3.7-10.4 [facility]mrwnwbRPDVLWTJYS1606-36-15 03:17:00 Test Item Value Reference Range Interpretation Comments RBC X 10x6 (test code = RBC X 10x6) 3.49 4.70-6.10 [facility] TomballQcmtsozKCPDSDOHJP4949-48-99 03:17:00 Test Item Value Reference Range Interpretation Comments Hgb (test code = Hgb) 10.4 14.0-18.0 [facility] TomballXzybfeePIGOEPMADR2826-20-15 03:17:00 Test Item Value Reference Range Interpretation Comments MCH (test code = MCH) 29.7 pg 27.0-31.0 [facility] TomballCzhoeneSXKUCXEJBS5918-47-26 03:17:00 Test Item Value Reference Range Interpretation Comments Hct (test code = Hct) 31.1 42.0-54.0 [facility] TomballYlddyyyOBDWVMHYWA5327-68-22 03:17:00 Test Item Value Reference Range Interpretation Comments MCV (test code = MCV) 88.9 80.0-94.0 [facility] HospitalVjynkzpFBPAMVTBAH8578-71-72 03:17:00 Test Item Value Reference Range Interpretation Comments MCHC (test code = MCHC) 33.4 32.0-36.0 [facility]valeJhxiqgtXHDUFJBCZB4415-66-08 03:17:00 Test Item Value Reference Range Interpretation Comments RDW (test code = RDW) 14.3 11.5-14.5 [facility]valeEhdbeopAFHRVXMWBK5372-42-27 03:17:00 Test Item Value Reference Range Interpretation Comments Platelet (test code = Platelet) 291 133-450 [facility] SunnyvaleChieevxYORKNRBAYI4008-48-32 03:17:00 Test Item Value Reference Range Interpretation Comments MPV (test code = MPV) 8.2 7.4-10.4 [facility] SunnyvaleZuxqalmBTBDGCKUSC2718-38-82 03:17:00 Test Item Value Reference Range Interpretation Comments Segs (test code = Segs) 77.5 45.0-75.0 [facility]valeUgnmvlsNULXWBGJGL5288-70-82 03:17:00 Test Item Value Reference Range Interpretation Comments Eosinophils # (test code 0.4 See_Comment [A utomated message] The = Eosinophils #) system whic h generated this result tra nsmitted reference range : <=0.5. The reference r dawood was not used to int erpret this result as normal/abnormal . [facility]valeAgdheudLKKAYOMYOW9522-53-78 03:17:00 Test Item Value Reference Range Interpretation Comments Basophils # (test code 0.1 See_Comment [Aut omated message] The = Basophils #) system which generated this result tra nsmitted reference range : <=0.2. The reference r dawood was not used to int erpret this result as normal/abnormal . [facility]valeTmhffktHKLZUWNKYF8721-49-92 03:17:00 Test Item Value Reference Range Interpretation Comments Basophils (test code = 1.2 See_Comment [Aut omated message] The Basophils) system which ge nerated this result tra nsmitted reference range : <=1.0. The reference r dawood was not used to int erpret this result as normal/abnormal . [facility]valeSlewkttPHHDCGVMAP2360-73-46 03:17:00 Test Item Value Reference Range Interpretation Comments Lymphocytes (test code = Lymphocytes) 8.1 20.0-40.0 [facility]valeHirovrnPZAUCUJYBV2984-39-75 03:17:00 Test Item Value Reference Range Interpretation Comments Monocytes (test code = Monocytes) 9.6 2.0-12.0 [facility]valeSzrpnhcLXYDGHENIE3398-10-68 03:17:00 Test Item Value Reference Range Interpretation Comments Monocytes # (test code 1.1 See_Comment [Aut omated message] The = Monocytes #) system which generated this result tra nsmitted reference range : <=0.8. The reference r dawood was not used to int erpret this result as normal/abnormal . [facility] HospitalIonfdkzSBUUVIYUIK3271-23-11 03:17:00 Test Item Value Reference Range Interpretation Comments Segs-Bands # (test code = Segs-Bands #) 9.0 1.5-8.1 [facility] HospitalPiuoajmCNISAKGRGV6553-78-51 03:17:00 Test Item Value Reference Range Interpretation Comments Lymphocytes # (test code = Lymphocytes 0.9 1.0-5.5 #) [facility]valeJxlouiaQHIVBSVOCN5124-68-88 03:17:00 Test Item Value Reference Range Interpretation Comments Eosinophils (test code = 3.6 See_Comment [A utomated message] The Eosinophils) system which ge nerated this result tra nsmitted reference range : <=4.0. The reference r dawood was not used to int erpret this result as normal/abnormal . [facility]hamPongo [facility]ume2017-03-21 05:11:00 Test Item Value Reference Range Interpretation Comments BNP (test code = BNP) 661 [facility] BrenhamPongo Resume2017-03-21 05:11:00 Test Item Value Reference Range Interpretation Comments Total CK (test code = Total CK) 494 12-191 [facility] TomballCardiioIWFJDHQ8130-03-04 05:11:00 Test Item Value Reference Range Interpretation Comments Troponin-I (test code 0.02 See_Comment [Auto mated message] The = Troponin-I) system which g enerated this result transmit katina reference range : <=0.40. The reference r dawood was not used to interpr et this result as kyle l/abnormal. [facility]hamPongo [facility]ume2017-03-21 05:11:00 Test Item Value Reference Range Interpretation Comments CK-MB INDEX (test 2.0 See_Comment [Automate d message] The code = CK-MB INDEX) system w [facility] generated this result transmit katina reference range : <=2.5. The reference range was not used to interpr et this result as kyle l/abnormal. [facility] [employer]2017-03-21 05:11:00 Test Item Value Reference Range Interpretation Comments CK MB (test code = CK MB) 9.9 0.5-3.6 [employer]2017-03-20 20:12:00 Test Item Value Reference Range Interpretation Comments Troponin-I (test code 0.02 See_Comment [Auto mated message] The = Troponin-I) system which g enerated this result transmit katina reference range : <=0.40. The reference r dawood was not used to interpr et this result as kyle l/abnormal. [employer]2017-03-20 20:12:00 Test Item Value Reference Range Interpretation Comments CK MB (test code = CK MB) 9.0 0.5-3.6 [facility] [employer]2017-03-20 20:12:00 Test Item Value Reference Range Interpretation Comments Total CK (test code = Total CK) 513 12-191 [facility] [employer]2017-03-20 20:12:00 Test Item Value Reference Range Interpretation Comments CK MB Index (test 1.8 See_Comment [Automate d message] The code = CK MB Index) system w [facility] generated this result transmit katina reference range : <=2.5. The reference range was not used to interpr et this result as kyle l/abnormal. [employer]2017-03-20 20:12:00 Test Item Value Reference Range Interpretation Comments A/G Ratio (test code = A/G Ratio) 0.6 0.7-1.6 [facility] [employer]2017-03-20 20:12:00 Test Item Value Reference Range Interpretation Comments Bili Total (test code = Bili Total) 0.1 0.2-1.3 [employer]2017-03-20 20:12:00 Test Item Value Reference Range Interpretation Comments Globulin (test code = Globulin) 3.9 2.7-4.2 [employer]2017-03-20 20:12:00 Test Item Value Reference Range Interpretation Comments AST (test code = AST) 22 See_Comment [Auto mated message] The system which ge nerated this result transmit katina reference range : <=37. The reference range was not used to interpr et this result as kyle l/abnormal. [employer]2017-03-20 20:12:00 Test Item Value Reference Range Interpretation Comments ALT (test code = ALT) 23 See_Comment [Auto mated message] The system which ge nerated this result transmit katina reference range : <=65. The reference range was not used to interpr et this result as kyle l/abnormal. [facility]ballWebstep [id number] 20:12:00 Test Item Value Reference Range Interpretation Comments Alk Phos (test code = Alk Phos) 89 39-136 [facility] [facility]2017-03-20 20:12:00 Test Item Value Reference Range Interpretation Comments Albumin Lvl (test code = Albumin Lvl) 2.5 3.5-5.0 [facility] [id number] 20:12:00 Test Item Value Reference Range Interpretation Comments Total Protein (test code = Total 6.4 6.4-8.4 Protein) [facility]2017-03-20 20:12:00 Test Item Value Reference Range Interpretation Comments Creatinine Lvl (test code = Creatinine 3.51 0.50-1.40 Lvl) [facility] [id number] 20:12:00 Test Item Value Reference Range Interpretation Comments AGAP (test code = AGAP) 16.0 10.0-20.0 [facility] [id number] 20:12:00 Test Item Value Reference Range Interpretation Comments CO2 (test code = CO2) 17 24-32 [facility] [id number] 20:12:00 Test Item Value Reference Range Interpretation Comments Chloride Lvl (test code = Chloride Lvl) 112 95-109 [facility] [id number] 20:12:00 Test Item Value Reference Range Interpretation Comments B/C Ratio (test code = B/C Ratio) 11 6-25 [facility] [id number] 20:12:00 Test Item Value Reference Range Interpretation Comments Calcium Lvl (test code = Calcium Lvl) 8.3 8.5-10.5 [facility] [id number] 20:12:00 Test Item Value Reference Range Interpretation Comments Sodium Lvl (test code = Sodium Lvl) 141 135-145 [facility] [id number] 20:12:00 Test Item Value Reference Range Interpretation Comments Potassium Lvl (test code = Potassium 4.0 3.5-5.1 Lvl) [facility]2017-03-20 20:12:00 Test Item Value Reference Range Interpretation Comments BUN (test code = BUN) 39 7-22 [facility]2017-03-20 20:12:00 Test Item Value Reference Range Interpretation Comments eGFR (test code = eGFR) 18 [facility]2017-03-20 20:12:00 Test Item Value Reference Range Interpretation Comments Glucose Lvl (test code = Glucose Lvl) 77 70-99 [id number] 20:12:00 Test Item Value Reference Range Interpretation Comments MPV (test code = MPV) 8.9 7.4-10.4 [id number] 20:12:00 Test Item Value Reference Range Interpretation Comments RDW (test code = RDW) 14.9 11.5-14.5 [id number] 20:12:00 Test Item Value Reference Range Interpretation Comments Platelet (test code = Platelet) 215 133-450 [id number] 20:12:00 Test Item Value Reference Range Interpretation Comments MCHC (test code = MCHC) 34.0 32.0-36.0 [id number] 20:12:00 Test Item Value Reference Range Interpretation Comments MCH (test code = MCH) 30.3 pg 27.0-31.0 [id number] 20:12:00 Test Item Value Reference Range Interpretation Comments MCV (test code = MCV) 89.2 80.0-94.0 [id number] 20:12:00 Test Item Value Reference Range Interpretation Comments Hgb (test code = Hgb) 11.2 14.0-18.0 [id number] 20:12:00 Test Item Value Reference Range Interpretation Comments Hct (test code = Hct) 32.9 42.0-54.0 [id number] 20:12:00 Test Item Value Reference Range Interpretation Comments WBC (test code = WBC) 9.1 3.7-10.4 [id number] 20:12:00 Test Item Value Reference Range Interpretation Comments RBC (test code = RBC) 3.69 4.70-6.10 [id number] 20:12:00 Test Item Value Reference Range Interpretation Comments Basophils (test code = 2.6 See_Comment [Aut omated message] The Basophils) system which ge nerated this result tra nsmitted reference range : <=1.0. The reference r dawood was not used to int erpret this result as normal/abnormal . [id number] 20:12:00 Test Item Value Reference Range Interpretation Comments Monocytes # (test code 0.8 See_Comment [Aut omated message] The = Monocytes #) system which generated this result tra nsmitted reference range : <=0.8. The reference r dawood was not used to int erpret this result as normal/abnormal . [id number] 20:12:00 Test Item Value Reference Range Interpretation Comments Lymphocytes # (test code = Lymphocytes 1.2 1.0-5.5 #) [id number] 20:12:00 Test Item Value Reference Range Interpretation Comments Segs-Bands # (test code = Segs-Bands #) 6.2 1.5-8.1 [id number] 20:12:00 Test Item Value Reference Range Interpretation Comments Basophils # (test code 0.2 See_Comment [Aut omated message] The = Basophils #) system which generated this result tra nsmitted reference range : <=0.2. The reference r dawood was not used to int erpret this result as normal/abnormal . [id number] 20:12:00 Test Item Value Reference Range Interpretation Comments Eosinophils # (test code 0.7 See_Comment [A utomated message] The = Eosinophils #) system whic h generated this result tra nsmitted reference range : <=0.5. The reference r dawood was not used to int erpret this result as normal/abnormal . [id number] 20:12:00 Test Item Value Reference Range Interpretation Comments Monocytes (test code = Monocytes) 8.7 2.0-12.0 [id number] 20:12:00 Test Item Value Reference Range Interpretation Comments Segs (test code = Segs) 68.2 45.0-75.0 [id number] 20:12:00 Test Item Value Reference Range Interpretation Comments Lymphocytes (test code = Lymphocytes) 12.9 20.0-40.0 [id number] 20:12:00 Test Item Value Reference Range Interpretation Comments Eosinophils (test code = 7.6 See_Comment [A utomated message] The Eosinophils) system which ge nerated this result tra nsmitted reference range : <=4.0. The reference r dawodo was not used to int erpret this result as normal/abnormal . [facility]
[2022-03-28] MEDS ORDERED: MAGNESIUM SULFATE 1 gm IVPB 1 GM/100 ML BAG IV ONE (11:46)
[2022-03-28 12:00] LABS: Protime INR 1.67
[2022-03-28 12:03] LABS: Absolute Lymphocytes (CBC) 0.3 K/uL (0.7-4.9); Hematocrit 31.3 % (39.6-49.0); Lymphocytes % 4.4 % (15.3-44.8); MPV 7.4 fL (7.6-11.3); RBC Red Blood Cell Count 3.19 M/uL (4.33-5.43)
[2022-03-28 12:11] LABS: Potassium 3.4 mmol/L (3.5-5.1)
[2022-03-28 12:12] LABS: Albumin 3.3 g/dL (3.4-5.0); Bilirubin Direct 0.3 mg/dL (0-0.2); Bilirubin Total 0.7 mg/dL (0.2-1.0); Magnesium 1.9 mg/dL (1.8-2.4)
[2022-03-28 12:14] LABS: Troponin High Sensitivity 131.4 pg/mL (<58.9)
--- NOTE | 2022-03-28 12:25 | RAD REPORT ---
EXAM DESCRIPTION: RAD - Chest Single View - 03/28/2022 12:02 pm CLINICAL HISTORY: COUGH Chest pain. COMPARISON: Chest Pa And Lat (2 Views) dated 11/25/2021; Chest Single View dated 11/19/2021; Chest Sing le View dated 07/20/2021; Chest Pa And Lat (2 Views) dated 07/18/2021 FINDINGS: Portable technique limits examination quality. Mild pulmonary edema. The heart is mildly enlarged in size. No displaced fractures.Sternotomy wires p resent. IMPRESSION: Mild CHF.
--- NOTE | 2022-03-28 12:29 | ER ---
Nurse's Notes [facility] Name: Refugio Sylvester Age: 67 yrs Sex: Male : 1955 Arrival Date: 03/28/2022 Time: 11:12 Bed 8 Private MD: Diagnosis: Syncope Near;Cardiac arrhythmia, unspecified;End stage renal disease-ON HD;Type 1 diabetes mellitus with hyperglycemia;Anemia, unspecified;Hypokalemia Presentation: 03/28 11:12 Chief complaint: EMS states: at [facility] starting dialysis pt went unresponsive, aa5 pt's life jacket stated to stay clear of pt and pt was defibrillated once, upon scene arrival pt was A\\T\\O x 4. Pt currently A\\T\\O x 4 and denies any symptoms. Coronavirus screen: At this time, the client does not indicate any symptoms associated with coronavirus-19. Ebola Screen: No symptoms or risks identified at this time. Initial Sepsis Screen: Does the patient meet any 2 criteria? No. Patient's initial sepsis screen is negative. Does the patient have a suspected source of infection? No. Patient's initial sepsis screen is negative. Risk Assessment: Do you want to hurt yourself or someone else? Patient reports no desire to harm self or others. Onset of symptoms was March 28, 2022. 11:12 Acuity: JOSH 2 aa5 11:12 Method Of Arrival: EMS: [facility] aa5 11:12 Care prior to arrival: Medication(s) given: ASA, 81 mg, x 4, Glucose check: 160. aa5 Historical: - Allergies: 11:17 No Known Allergies; aa5 - PMHx: 11:15 AKA- BILATERAL; CAD; CHF- CHRONIC SYSTOLIC; DM; ESRD; HTN; ha1 11:17 Right clavicle fracture; aa5 12:40 "blood clot in heart"; aa5 11:17 Life Pack; aa5 - PSHx: 11:15 CABG; AKA bilateral; ha1 11:26 Left arm Dialysis fistula; aa5 - Family history:: not pertinent. - Social history:: Smoking status: . Screenin:13 Abuse screen: Denies threats or abuse. Nutritional screening: No deficits noted. ha1 Tuberculosis screening: No symptoms or risk factors identified. Assessment: 11:13 General: Appears comfortable, Behavior is calm, cooperative. ha1 11:13 Pain: Denies pain. Neuro: Level of Consciousness is Oriented to Waiter And Cashier are equal ha1 bilaterally Reports a syncopal episode few when he was at the dialysis.. Cardiovascular: Reports history of CHF Heart tones S1 S2 present Rhythm is atrial fibrillation. Respiratory: Airway is patent Respiratory effort is even, unlabored, Respiratory pattern is regular, symmetrical. GI: No signs and/or symptoms were reported involving the gastrointestinal system. : pt. states " it takes me a while to urinate". EENT: No signs and/or symptoms were reported regarding the EENT system. Derm: Skin Skin is normal, recent sutures noticed to left AKA. Pt. states he stays at [facility] since left AKA surgery . no s/s of infection notice to left AKA site. Musculoskeletal: Amputation of Other: terese AKA noted Reports recent clavicle fracture. 12:39 Reassessment: Pt's states "he takes warfarin and clopidogrel and he has a blood aa5 clot in his heart that they can't do anything about". A-fib on monitor at 75bpm at this time. was notified of pt's statement. . 13:30 Reassessment: Patient and/or family updated on plan of care and expected duration. Pain ha1 level reassessed. Patient is alert, oriented x 3, equal unlabored respirations, skin warm/dry/pink. Vital Signs: 11:12 BP 129 / 76; Pulse 107; Resp 18 S; Temp 98.3(O); Pulse Ox 99% on R/A; Weight 95.25 kg aa5 (R); 11:15 BP 134 / 74; Pulse 69; Resp 18 S; Pulse Ox 98% on R/A; ha1 12:35 BP 114 / 75; Pulse 75; Resp 16 S; Pulse Ox 96% on R/A; aa5 13:30 BP 114 / 75; Pulse 77; Resp 18 S; Pulse Ox 98% on R/A; ha1 ED Course: 11:12 Patient arrived in ED. ha1 11:12 Arm band placed on. ha1 11:12 Patient has correct armband on for positive identification. Placed in gown. Bed in low ha1 position. Call light in reach. Side rails up X2. 11:15 Triage completed. ha1 11:16 Lio Lambert MD is Attending Physician. [facility] 11:30 Initial lab(s) drawn, by me, sent to lab. Inserted saline lock: 18 gauge in right aa5 antecubital area, using aseptic technique. Blood collected. 11:38 Shavonne Vidal, RN is Primary Nurse. ha1 12:04 XRAY Chest (1 view) In Process Unspecified. EDMN 12:13 SARS RAPID Sent. kc6 13:57 No provider procedures requiring assistance completed. Patient transferred, IV remains ha1 in place. Administered Medications: 11:50 Drug: Magnesium Sulfate 1 grams Route: IVPB; Infused Over: 1 hrs; Site: right aa5 antecubital; 12:25 Follow up: Response: No adverse reaction ha1 13:00 Follow up: IV Status: Completed infusion ha1 Medication: 14:01 VIS not applicable for this client. ha1 Outcome: 12:29 ER care complete, transfer ordered by . [facility] 13:58 Transferred by ground EMS to [facility], Transfer form ha1 completed. X-rays sent w/ patient. Note: report given to Chloe ROGER at [facility] at 1313 and report given to [facility] 13:58 Condition: stable 13:58 Instructed on the need for transfer, Demonstrated understanding of instructions. 14:01 Patient left the ED. ha1 Signatures: Dispatcher [employer] EDMS Lio Lambert MD MD cha Calderon, Audri, RN RN aa5 Shavonne Vidal RN RN ha1 Gladys Cabrera kc6 Corrections: (The following items were deleted from the chart) 11:17 11:12 Chief complaint: EMS states: at [facility] starting dialysis pt went aa5 unresponsive, pt's life jacket stated to stay clear of pt and pt was defibrillated once, upon scene arrival pt was A\\T\\O x 4. Pt currently A\\T\\O x 4 and denies any symptoms. ha1 11:17 11:12 Risk Assessment: Do you want to hurt yourself or someone else? Patient reports no aa5 desire to harm self or others. ha1 11:17 11:12 Initial Sepsis Screen: Does the patient meet any 2 criteria? No. Patient's aa5 initial sepsis screen is negative. Does the patient have a suspected source of infection? No. Patient's initial sepsis screen is negative. ha 11: Ebola Screen: No symptoms or risks identified at this time. 1 5 11:12 Coronavirus screen: At this time, the client does not indicate any symptoms aa5 associated with coronavirus-19. 11: Onset of symptoms was March 28, 2022 [facility] 11:12 Acuity: JOSH 2 [facility] 11:12 Method Of Arrival: EMS: [place] [id number] 11:12 BP 129 / 76; Pulse 107bpm; Resp 18bpm; Spontaneous; Pulse Ox 99% RA; aa5 aa5
--- NOTE | 2022-03-28 12:29 | EDPHYS ---
Physician Documentation [facility] Name: Refugio Sylvester Age: 67 yrs Sex: Male : 1955 Arrival Date: 03/28/2022 Time: 11:12 Bed 8 Private MD: ED Physician Lio Lambert HPI: 03/28 12:04 This 67 yrs old Male presents to ER via EMS with complaints of Unresponsive dajuan during Dialysis, Defibrillation. 12:04 The patient has shortness of breath at rest, with light activity. Onset: The dajuan symptoms/episode began/occurred just prior to arrival. Duration: The symptoms are continuous, but are markedly better than the original presentation. The patient's shortness of breath has no apparent modifying factors. The patient has experienced syncope, became unresponsive. Associated signs and symptoms: Pertinent positives:. Severity of symptoms: At their worst the symptoms were moderate in the emergency department the symptoms have improved markedly. Historical: - Allergies: 11:17 No Known Allergies; aa5 - PMHx: 11:15 AKA- BILATERAL; CAD; CHF- CHRONIC SYSTOLIC; DM; ESRD; HTN; ha1 11:17 Right clavicle fracture; aa5 12:40 "blood clot in heart"; aa5 11:17 Life Pack; aa5 - PSHx: 11:15 CABG; AKA bilateral; ha1 11:26 Left arm Dialysis fistula; aa5 - Family history:: not pertinent. - Social history:: Smoking status: . ROS: 12:04 Constitutional: Negative for fever, chills, and weight loss, Eyes: Negative for injury, dajuan pain, redness, and discharge, ENT: Negative for injury, pain, and discharge, Neck: Negative for injury, pain, and swelling, Cardiovascular: Negative for chest pain, palpitations, and edema, Respiratory: Negative for shortness of breath, cough, wheezing, and pleuritic chest pain, Abdomen/GI: Negative for abdominal pain, nausea, vomiting, diarrhea, and constipation, : Negative for injury, bleeding, discharge, and swelling, MS/Extremity: Negative for injury and deformity, Skin: Negative for injury, rash, and discoloration, Psych: Negative for depression, anxiety, suicide ideation, homicidal ideation, and hallucinations, Allergy/Immunology: Negative for hives, rash, and allergies, Endocrine: Negative for neck swelling, polydipsia, polyuria, polyphagia, and marked weight changes, Hematologic/Lymphatic: Negative for swollen nodes, abnormal bleeding, and unusual bruising. 12:04 Neuro: Positive for syncope. Exam: 12:04 Constitutional: This is a well developed, well nourished patient who is awake, alert, dajuan and in no acute distress. Head/Face: Normocephalic, atraumatic. Eyes: Pupils equal round and reactive to light, extra-ocular motions intact. Lids and lashes normal. Conjunctiva and sclera are non-icteric and not injected. Cornea within normal limits. Periorbital areas with no swelling, redness, or edema. ENT: Nares patent. No nasal discharge, no septal abnormalities noted. Tympanic membranes are normal and external auditory canals are clear. Oropharynx with no redness, swelling, or masses, exudates, or evidence of obstruction, uvula midline. Mucous membranes moist. Neck: Trachea midline, no thyromegaly or masses palpated, and no cervical lymphadenopathy. Supple, full range of motion without nuchal rigidity, or vertebral point tenderness. No Meningismus. Chest/axilla: Normal chest wall appearance and motion. Nontender with no deformity. No lesions are appreciated. Cardiovascular: Regular rate and rhythm with a normal S1 and S2. No gallops, murmurs, or rubs. Normal PMI, no JVD. No pulse deficits. Respiratory: Lungs have equal breath sounds bilaterally, clear to auscultation and percussion. No rales, rhonchi or wheezes noted. No increased work of breathing, no retractions or nasal flaring. Abdomen/GI: Soft, non-tender, with normal bowel sounds. No distension or tympany. No guarding or rebound. No evidence of tenderness throughout. Back: No spinal tenderness. No costovertebral tenderness. Full range of motion. Male : Normal genitalia with no discharge or lesions. Skin: Warm, dry with normal turgor. Normal color with no rashes, no lesions, and no evidence of cellulitis. MS/ Extremity: Pulses equal, no cyanosis. Neurovascular intact. Full, normal range of motion. Neuro: Awake and alert, GCS 15, oriented to person, place, time, and situation. Cranial nerves II-XII grossly intact. Motor strength 5/5 in all extremities. Sensory grossly intact. Cerebellar exam normal. Normal gait. Psych: Awake, alert, with orientation to person, place and time. Behavior, mood, and affect are within normal limits. 12:04 ECG was reviewed by the Attending Physician. Vital Signs: 11:12 BP 129 / 76; Pulse 107; Resp 18 S; Temp 98.3(O); Pulse Ox 99% on R/A; Weight 95.25 kg aa5 (R); 11:15 BP 134 / 74; Pulse 69; Resp 18 S; Pulse Ox 98% on R/A; ha1 12:35 BP 114 / 75; Pulse 75; Resp 16 S; Pulse Ox 96% on R/A; aa5 13:30 BP 114 / 75; Pulse 77; Resp 18 S; Pulse Ox 98% on R/A; ha1 MDM: 11:16 Patient medically screened. dajuan 12:17 Differential diagnosis: Anxiety Reaction CHF exacerbation, pulmonary edema, Unstable dajuan Angina. Antibiotic administration: Not indicated. Differential Diagnosis: cardiac arrhythmia, cerebrovascular accident, idiopathic syncope, seizure, vasovagal episode. The patient's Wells Deep Vein Thrombosis Score was calculated as follows: Heart Rate >100 BPM (1.5 Pts) Total Score: 0-2 Pts- Low Risk. The patient's pulmonary embolism risk score was calculated as follows: the patients heart rate is greater than 100 beats per minute (1.5 Pts) Total Score: 0-2 points. This patient was found to be at low risk for a pulmonary embolism by using the Well's assessment criteria. Immunization status: Pneumococcal vaccine: Influenza vaccine: within last 5 years. Data reviewed: vital signs, nurses notes, lab test result(s), EKG, radiologic studies, plain films. Data interpreted: campus monitor: rate is 107 beats/min, rhythm is regular, Pulse oximetry: on room air is 99 %. Test interpretation: by ED physician or midlevel provider: ECG, plain radiologic studies. Counseling: I had a detailed discussion with the patient and/or guardian regarding: the historical points, exam findings, and any diagnostic results supporting the discharge/admit diagnosis, the presence of at least one elevated blood pressure reading (>120/80) during this emergency department visit, lab results, the need to transfer to another facility, for higher level of care, [facility] does not immediately have the required specialist. 03/28 11:17 Order name: Basic Metabolic Panel; Complete Time: 12:32 [facility] 03/28 11:17 Order name: CBC with Diff; Complete Time: 12:32 [facility] 03/28 11:17 Order name: LFT's; Complete Time: 12:32 [facility] 03/28 11:17 Order name: Magnesium; Complete Time: 12:32 [facility] 03/28 11:17 Order name: NT PRO-BNP; Complete Time: 12:32 [facility] 03/28 11:17 Order name: PT-INR; Complete Time: 12:32 [facility] 03/28 11:17 Order name: Troponin HS; Complete Time: 12:32 [facility] 03/28 11:17 Order name: XRAY Chest (1 view); Complete Time: 12:32 [facility] 03/28 11:17 Order name: EKG; Complete Time: 11:18 [facility] 03/28 11:17 Order name: Cardiac monitoring; Complete Time: 11:18 [facility] 03/28 11:17 Order name: EKG - Nurse/Tech; Complete Time: 11:18 [facility] 03/28 11:17 Order name: IV Saline Lock; Complete Time: 11:26 [facility] 03/28 11:38 Order name: SARS RAPID em1 03/28 11:17 Order name: Labs collected and sent; Complete Time: 11:26 [facility] 03/28 11:17 Order name: O2 Per Protocol; Complete Time: 11:18 [facility] 03/28 11:17 Order name: O2 Sat Monitoring; Complete Time: 11:18 [facility] EC:04 Rate is 108 beats/min. Rhythm is regular. QRS [place] is Normal. IN interval is normal. dajuan QRS interval is prolonged at 126 msec. QT interval is normal. No Q waves. T waves are Normal. No ST changes noted. Clinical impression: Abnormal EKG without significant change and No evidence of ischemia. Interpreted by me. Reviewed by me. Administered Medications: 11:50 Drug: Magnesium Sulfate 1 grams Route: IVPB; Infused Over: 1 hrs; Site: right aa5 antecubital; 12:25 Follow up: Response: No adverse reaction ha1 13:00 Follow up: IV Status: Completed infusion ha1 Disposition Summary: 03/28/22 12:29 Transfer Ordered Transfer Location: [facility] dajuan Reason: Higher level of care dajuan Condition: Stable dajuan Problem: new dajuan Symptoms: have improved dajuan Accepting Physician: TO [facility], TELE(03/28/22 14:01) ha1 Diagnosis - Syncope Near dajuan - Cardiac arrhythmia, unspecified dajuan - End stage renal disease - ON HD dajuan - Type 1 diabetes mellitus with hyperglycemia dajuan - Anemia, unspecified dajuan - Hypokalemia dajuan Forms: - Medication Reconciliation Form dajuan - SBAR form dajuan Signatures: Dispatcher [employer] Lio Welch MD MD cha Calderon, Audri RN RN aa5 Shavonne Vidal RN RN ha1 Corrections: (The following items were deleted from the chart) 12:32 12:29 TO [facility], Pending sale to [facility] 14:01 12:32 TO [facility], [facility] ha1
[2022-03-28 12:39] LABS: SARS-CoV-2 Antigen Rapid Res Negative (Negative)
[2022-03-28 15:18] VITALS: BP 129/76; TEMP 98.3; O2SAT 99
--- NOTE | 2022-03-30 13:49 | EKG ---
Test Date: 2022-03-28 Test Time: 11:16:57 [place] Operator: KENYETAT MEASUREMENT RESULTS: Intervals: Rate: 108 VT: QRSD: 126 QT: 410 QTc: 549 [place]: P: VT: QRS: -52 T: 141 INTERPRETIVE STATEMENTS: Supraventricular tachycardia Left axis deviation Nonspecific intraventricular block Cannot rule out Septal infarct, age undetermined T wave abnormality, consider lateral ischemia Abnormal ECG Compared to ECG 11/19/2021 10:15:52 T-wave abnormality now present Left ventricular hypertrophy no longer present ST (T wave) deviation no longer present Myocardial infarct finding still present Possible ischemia still present Electronically Signed On 03-30-22 13:46:03 CDT by Chiki Hensley
== END 2022-03-28 14:01 | disposition short-term general hospital (02) ==
LOC: ER 11:10
DX: R55 Syncope and collapse (principal); I49.9 Cardiac arrhythmia, unspecified; E10.22 Type 1 diabetes mellitus with diabetic chronic kidney disease; E10.65 Type 1 diabetes mellitus with hyperglycemia; I13.2 Hypertensive heart and chronic kidney disease with heart failure and with stage 5 chronic kidney disease, or end stage renal disease; I50.22 Chronic systolic (congestive) heart failure; N18.6 End stage renal disease; Z99.2 Dependence on renal dialysis; D63.1 Anemia in chronic kidney disease; E87.6 Hypokalemia; Z95.1 Presence of aortocoronary bypass graft; Z89.611 Acquired absence of right leg above knee; Z89.612 Acquired absence of left leg above knee; Z20.822 Contact with and (suspected) exposure to COVID-19
CPT/HCPCS: 96365; 93005; 85025; 80048; 36415; 83735; 85610; 80076; 84484; 83880; 71045; 99285; 87811; J3475

== ENCOUNTER → 2023-08-20 | Emergency (ER) | payer OTHER ==
[~2023-08-20] MED LIST: Calcium Chloride 10% INJ SYR IV ONE; EPINEPHrine 1 MG/10 ML SYR IV ONE
--- NOTE | 2023-08-20 03:08 | ER ---
Nurse's Notes [facility] Name: Refugio Sylvester Age: 68 yrs Sex: Male : 1955 Arrival Date: 08/20/2023 Time: 02:41 Bed 2 Private MD: Diagnosis: End stage renal disease-on HD;Cardiac arrest due to underlying cardiac condition;Presence of cardiac pacemaker;Type 1 diabetes mellitus with hyperglycemia;Essential (primary) hypertension;Cardiac arrhythmia, unspecified Presentation: 08/20 02:43 Chief complaint: EMS states: toned out for pt waking up from sleep yelling for to [facility] call EMS; once EMS arrived on scene pt had a weak pulse then went into PEA once in the truck; Dev in place and pt intubated upon arrival to ER. Care prior to arrival: Oral intubation, CPR via thumper Medication(s) given: Epi x2, Bicarb x1, Calcium x1 IV initiated. IO right shoulder. Compressions began prior to arrival. 02:43 Method Of Arrival: EMS: [facility] 02:43 Acuity: JOSH 1 02:43 Coronavirus screen: At this time, unable to obtain information related to travel km outside the [place] Ebola Screen: Unable to complete the Ebola screening because:. 02:43 Initial Sepsis Screen: Does the patient meet any 2 criteria? No. Patient's initial [facility] sepsis screen is negative. Does the patient have a suspected source of infection? No. Patient's initial sepsis screen is negative. Risk Assessment: Do you want to hurt yourself or someone else? Unable to obtain. Onset of symptoms was August 20, 2023 at 01:55. Triage Assessment: 02:43 General: Appears unresponsive. Behavior is unresponsive. 8 02:43 Pain: Unable to use pain scale. Patient is unresponsive. 8 Historical: - PMHx: 02:43 AKA- BILATERAL; CAD; CHF- CHRONIC SYSTOLIC; DM; ESRD; HTN; km8 - PSHx: 02:43 AKA bilateral; Left arm dialysis fistula; km8 - Immunization history:: Adult Immunizations unknown. - Family history:: not pertinent. - Social history:: Smoking status: unknown. Screenin:43 Abuse screen: unable to ask. Nutritional screening: unable to ask. Tuberculosis km8 screening: unable to ask. Assessment: 02:43 CPR assessment: unresponsive, intubated, Ambu ventilation. Cardiac rhythm is PEA. km8 General:. Neuro: Zarate Agitation-Sedation Scale (RASS): -5 Unarousable Level of Consciousness is unresponsive. Cardiovascular: Pulses are absent in right femoral artery, left femoral artery, left carotid pulse and right carotid pulse Rhythm is PEA. Respiratory: Airway is patent via oral intubation Trachea midline. Musculoskeletal: Amputation of bilateral above the knee . 02:43 Pain: Unable to use pain scale. Patient is unresponsive. km8 02:50 Cardiovascular: Pulses are absent in right femoral artery, left femoral artery, left km8 carotid pulse and right carotid pulse Rhythm is PEA. 02:53 Cardiovascular: Pulses are absent in right femoral artery, left femoral artery, left km8 carotid pulse and right carotid pulse Rhythm is PEA. 02:56 Cardiovascular: Pulses are absent in right femoral artery, left femoral artery, left km8 carotid pulse and right carotid pulse Rhythm is PEA. 02:58 Cardiovascular: Pulses are absent in right femoral artery, left femoral artery, left km8 carotid pulse and right carotid pulse Rhythm is PEA. 03:01 Cardiovascular: Pulses are absent in right femoral artery, left femoral artery, left km8 carotid pulse and right carotid pulse Rhythm is PEA. Vital Signs: 02:43 BP 78 / 26; Pulse 121 (CPR in progress); km8 02:45 BP 67 / 52; Pulse 130 (CPR in progress); km8 02:58 Temp 96.3(R); km8 ED Course: 02:43 Patient arrived in ED. wm 02:43 Client placed on continuous cardiac and pulse oximetry monitoring. NIBP monitoring km8 applied. 02:43 pt with ED staff. km8 02:43 Maintain EMS IV. Dressing intact. Good blood return noted. Site clean \T\ dry. Gauge \T\ km 8 site: IO right shoulder. 02:55 Assisted provider with central line placement. Set up central line tray. Triple lumen km8 line placed in right femoral. Line placed by Lio RODRIGUEZ Dressed with Tegaderm. 02:58 Lio Lambert MD is Attending Physician. cp 03:05 [facility] notified of Pt , [place] called out. wm 03:07 Lio Lambert MD is Pronouncing Provider. dajuan 03:11 Triage completed. km8 03:23 Arm band placed on right wrist. km8 03:26 Provided Education on: n/a. km8 Administered Medications: 02:44 Drug: EPINEPHrine 1:10,000 IVP 1:10,000 1 mg IVP once Route: IVP; Site: Other; 8 03:01 Follow up: Response: No change in condition km8 02:45 Drug: Sodium Bicarbonate IVP 1 amp IVP once; (50 mL); equals 50 mEq Route: IVP; Site: [facility] Other; 03:01 Follow up: Response: No change in condition km8 02:48 Drug: Calcium Chloride IVP 10% 10 ml IVP once Route: IVP; Site: Other; km 03:01 Follow up: Response: No change in condition km8 02:48 Drug: EPINEPHrine 1:10,000 IVP 1:10,000 1 mg IVP once Route: IVP; Site: Other; [facility] 03:01 Follow up: Response: No change in condition km8 02:51 Drug: EPINEPHrine 1:10,000 IVP 1:10,000 1 mg IVP once Route: IVP; Site: Other; km8 03:01 Follow up: Response: No change in condition km8 02:54 Drug: EPINEPHrine 1:10,000 IVP 1:10,000 1 mg IVP once Route: IVP; Site: Other; [facility] 03:01 Follow up: Response: No change in condition km8 02:57 Drug: EPINEPHrine (PF) IV 1:1,000 1 mg IV at bolus once; Do not exceed 1 mg Route: IV; km8 Rate: bolus; Site: Other; 02:58 Follow up: IV Status: Completed infusion 8 03:01 Follow up: Response: No change in condition 8 Medication: 03:02 VIS not applicable for this client. km8 Point of Care Testing: Blood Glucose: 02:47 Blood Glucose: 351 mg/dL; km8 Ranges: Outcome: 03:01 Outcome Patient km8 03:01 Patient : 03:01 Condition: 05:28 Patient left the ED. 8 Signatures: Lio Lambert MD MD cha Page, Corey, PA PA cp Marsh, Wendy wm Marx, Katie, RN RN km8 Corrections: (The following items were deleted from the chart) 03:15 02:43 Outcome km8 km 04:02 02:43 Cardiovascular: Rhythm is PEA km8 km8
--- NOTE | 2023-08-20 03:08 | EDPHYS ---
Physician Documentation [facility] Name: Refugio Sylvester Age: 68 yrs Sex: Male : 1955 Arrival Date: 08/20/2023 Time: 02:41 Bed 2 Private MD: ED Physician Lio Lambert HPI: 08/20 03:02 This 68 yrs old Male presents to ER via Unassigned with complaints of CPR. dajuan 03:02 Preceding the arrest, the patient collapsed. The arrest occurred at home. Pre-hospital dajuan course: The arrest was witnessed by family. The patient has not experienced similar symptoms in the past. Historical: - PMHx: 02:43 AKA- BILATERAL; CAD; CHF- CHRONIC SYSTOLIC; DM; ESRD; HTN; km8 - PSHx: 02:43 AKA bilateral; Left arm dialysis fistula; km8 - Immunization history:: Adult Immunizations unknown. - Family history:: not pertinent. - Social history:: Smoking status: unknown. ROS: 03:03 Unable to obtain ROS due to current cpr, dajuan Exam: 03:03 Eyes: Pupils: are fixed and dilated, dajuan 03:03 Cardiovascular: Rate: actual rate is 0 bpm, Rhythm: asystole, Pulses: not palpable, Heart sounds: none, Edema: is not appreciated, JVD: is noted bilaterally, Vital Signs: 02:43 BP 78 / 26; Pulse 121 (CPR in progress); km8 02:45 BP 67 / 52; Pulse 130 (CPR in progress); km8 02:58 Temp 96.3(R); km8 Procedures: 03:05 Central Line: the site was prepped with Betadine, in sterile fashion, a triple lumen dajuan catheter was inserted, in the right femoral vein, in 1 attempts. placement was verified, by blood return, the site was dressed with using sterile technique. MDM: 02:58 Patient medically screened. cp 03:05 Data reviewed: vital signs, nurses notes. Consideration of Admission/Observation dajuan Escalation of care including admission/observation considered. Test considered but Not performed: Labs: no labs. Historians other than the Patient: EMS: ems well informed. Care significantly affected by the following chronic conditions: Diabetes, Hypertension, Congestive Heart Failure, Obesity, Chronic Kidney Disease. Counseling: I had a detailed discussion with the patient and/or guardian regarding the historical points, exam findings, and any diagnostic results supporting the discharge/admit diagnosis. Administered Medications: 02:44 Drug: EPINEPHrine 1:10,000 IVP 1:10,000 1 mg IVP once Route: IVP; Site: Other; [facility] 03:01 Follow up: Response: No change in condition 8 02:45 Drug: Sodium Bicarbonate IVP 1 amp IVP once; (50 mL); equals 50 mEq Route: IVP; Site: [facility] Other; 03:01 Follow up: Response: No change in condition 8 02:48 Drug: Calcium Chloride IVP 10% 10 ml IVP once Route: IVP; Site: Other; [facility] 03:01 Follow up: Response: No change in condition 8 02:48 Drug: EPINEPHrine 1:10,000 IVP 1:10,000 1 mg IVP once Route: IVP; Site: Other; [facility] 03:01 Follow up: Response: No change in condition 8 02:51 Drug: EPINEPHrine 1:10,000 IVP 1:10,000 1 mg IVP once Route: IVP; Site: Other; 8 03:01 Follow up: Response: No change in condition 8 02:54 Drug: EPINEPHrine 1:10,000 IVP 1:10,000 1 mg IVP once Route: IVP; Site: Other; [facility] 03:01 Follow up: Response: No change in condition 8 02:57 Drug: EPINEPHrine (PF) IV 1:1,000 1 mg IV at bolus once; Do not exceed 1 mg Route: IV; 8 Rate: bolus; Site: Other; 02:58 Follow up: IV Status: Completed infusion [facility] 03:01 Follow up: Response: No change in condition [facility] Point of Care Testing: Blood Glucose: 02:47 Blood Glucose: 351 mg/dL; 8 Ranges: Critical Glucose Levels:Adult <50 mg/dl or >400 mg/dl <40 mg/dl or >180 mg/dl Disposition Summary: 08/20/23 03:08 Patient Notes: Location: Home dajuan Pronouncing Physician: Lio Lambert cha Time of : 03:01 08/20/2023 dajuan Diagnosis - End stage renal disease - on HD dajuan - Cardiac arrest due to underlying cardiac condition dajuan - Presence of cardiac pacemaker dajuan - Type 1 diabetes mellitus with hyperglycemia dajuan - Essential (primary) hypertension dajuan - Cardiac arrhythmia, unspecified dajuan Signatures: Lio Lambert MD MD cha Page, Corey, PA PA cp Marx, Katie, RN RN km8
[2023-08-20 10:50] VITALS: BP 67/52; TEMP 96.3
== END ==
LOC: ER 02:41
PROC: 06HM33Z Insertion of Infusion Device into Right Femoral Vein, Percutaneous Approach (ICD-10-PCS; principal; 2023-08-20)
DX: E10.22 Type 1 diabetes mellitus with diabetic chronic kidney disease (principal); E10.65 Type 1 diabetes mellitus with hyperglycemia; I13.2 Hypertensive heart and chronic kidney disease with heart failure and with stage 5 chronic kidney disease, or end stage renal disease; I50.22 Chronic systolic (congestive) heart failure; N18.6 End stage renal disease; I46.8 Cardiac arrest due to other underlying condition; Z99.2 Dependence on renal dialysis; I49.9 Cardiac arrhythmia, unspecified; Z95.0 Presence of cardiac pacemaker; Z89.612 Acquired absence of left leg above knee; Z89.611 Acquired absence of right leg above knee
CPT/HCPCS: 92950; 96374; 96375; 99285